=== PATIENT | male | born 1955 | race Caucasian/White ===

== ENCOUNTER 2017-10-11 09:48 | Day surgery (SDC) | payer MEDICARE, BC, OTHER ==
[2017-10-06 12:32] VITALS: BMI 24.9
[~2017-10-11 09:48] MED LIST: LACTATED RINGERS 1,000 ML IV SCH
[2017-10-11 11:15] VITALS: TEMP 98.4
[2017-10-11] MEDS ORDERED: PROPOFOL 10 MG/ML 20 ML VIAL IV ONE (11:20)
[2017-10-11] MEDS ORDERED: LIDOCAINE 1% 20 ML VIAL (10MG/ML) FOR IV START INTRADERMA ONE (11:21)
--- NOTE | 2017-10-11 11:59 | P.PCN ---
Date of Procedure: 10/11/17 Procedure(s) Performed: Procedure: PEG tube removal. Preoperative diagnosis: History of oropharyngeal dysphagia requiring PEG tube feedings. Postoperative diagnosis: Successful removal of the PEG tube intact under sedation. Preparation and sedation: Was provided by anesthesia. Brief clinical history: The patient is a 62-year-old male with history of oropharyngeal dysphagia back in March 2017 that required placement of PEG tube for feeding. The patient was evaluated in the office last month and he reported significant improvement with ability to meet his nutritional needs by spontaneous oral intake consistently. He wanted the PEG tube removed under sedation. Procedure: With the patient in the supine position and after informed consent and adequate sedation, I was able to remove the feeding tube with gentle traction and it came out intact. The site did not appear infected and it did not show any evidence of bleeding. No upper endoscopy was required. The patient tolerated the procedure well and did not have any immediate complications. Plan: The patient would not be given anything by mouth for 2-4 hours then we suggest his next meal to be liquid then he can advance his diet as tolerated. Further plans based on his course.
[2017-10-11 12:09] VITALS: RESP 20
[2017-10-11 12:13] VITALS: BP 142/82; PULSE 63
== END 2017-10-11 12:48 | disposition home or self-care (01) ==
LOC: ORWHC2ENDO 09:48
DX: Z43.1 Encounter for attention to gastrostomy (principal); E11.9 Type 2 diabetes mellitus without complications; I48.91 Unspecified atrial fibrillation; I10 Essential (primary) hypertension; R56.9 Unspecified convulsions; F03.90 Unspecified dementia, unspecified severity, without behavioral disturbance, psychotic disturbance, mood disturbance, and anxiety; Z87.19 Personal history of other diseases of the digestive system; Z79.01 Long term (current) use of anticoagulants; Z79.890 Hormone replacement therapy; Z79.891 Long term (current) use of opiate analgesic; Z79.899 Other long term (current) drug therapy; Z87.891 Personal history of nicotine dependence
CPT/HCPCS: J2704; G0463; 43215; 43246; 99212

== ENCOUNTER 2018-11-16 10:12 | Inpatient (IN) | payer MEDICARE, BC, OTHER ==
[2018-11-07 14:41] VITALS: BMI 29.5
--- NOTE | 2018-11-16 09:19 | P.GSHP ---
History of Present Illness H&P Date: 11/16/18 CHIEF COMPLAINT: Recurrent incisional hernia. HISTORY OF PRESENT ILLNESS: [place] is a 63-year-old male who comes in with recurrent incisional hernia from over 5+ years ago. He is wheelchair bound. He lives at [facility]. He has completed further work up and evaluation by specialist. He now presents for further evaluation and management. He does have his tape keller operator at bedside. PAST MEDICAL HISTORY: Please see list. PAST SURGICAL HISTORY: Please see list. MEDICATIONS: Please see list. ALLERGIES: Please see list. SOCIAL HISTORY: No illicit drug use FAMILY HISTORY: No reports of Crohn disease or ulcerative colitis. REVIEW OF ORGAN SYSTEMS: CONSTITUTIONAL: No fevers or chills. No recent weight loss. EYES: Denies any trouble with vision. No glasses. HEENT: No difficulties with hearing. No nosebleeds. No difficulty swallowing. RESPIRATORY: Denies pneumonia. Denies any troubles with breathing or dyspnea on exertion. CARDIOVASCULAR: Has chest pain, palpitations, or recent heart attacks. GASTROINTESTINAL: Denies fatty food intolerance. Denies change in bowel habits and gas bloat. GENITOURINARY: Denies any blood in urine or increased urinary frequency. NEUROLOGICAL: Has numbness or tingling along the distal extremities. Has seizure disorders or headaches. MUSCULOSKELETAL: Has back pain, stiffness or joint arthritis. SKIN: No current skin cancer. No rash. PSYCHIATRIC: Has depression. No suicidal thoughts. Has anxiety. ENDOCRINE: Has thyroid disorders. Denies any blood sugar glucose intolerance. HEME/LYMPHATIC: Denies any lumps and bumps around the neck. No recent deep venous thrombosis. On chronic anticoagulant. ALLERGY/IMMUNOLOGY: No immunoglobulin therapy. No immune deficiencies. BREAST: Denies current breast lumps, pain or nipple discharge. PHYSICAL EXAM: Patient is a 63-year-old male. VITALS:Reviewed Musculoskeletal: Atrophy noted along the right lower leg, wheelchair bound. CONSTITUTIONAL: Well developed and in no acute distress. Vitals reviewed. EYES: Conjuctivae without sclera icterus. Pupils are equally round and reactive to light. Extraocular movements grossly intact. HEAD, EARS, NOSE, THROAT: Moist buccal mucosa. Head is atraumatic, normocephalic. Hears conversational speech. No nasal drainage. Good dentition. NECK: Supple. No JV distention. No thyroidomegaly. RESPIRATORY: Non-labored respirations and equal bilateral excursions. No gross wheezes. CARDIOVASCULAR: Regular rate and rhythm. Extremities without moderate edema. Palpable 2+ radial pulses. LYMPH: No neck lymphadenopathy. No axillary lymphadenopathy. SKIN: Warm and well perfused with good skin turgor. NEUROLOGIC: Cranial nerves I through XII grossly intact. Sensation upper and extremities intact. No focal or lateralizing signs. PSYCH: Appropriate affect. Alert and oriented to person, place and time. Displays appropriate insight. Abdomen: Large 10 x 8 cm epigastric ventral hernia, recurrent with hernia belt noted. STUDIES: CT of the abdomen/pelvis was independently reviewed in detail and demonstrated incarcerated recurrent incisional hernia of the epigastrium. ASSESSMENT: 1. Recurrent incisional ventral hernia. 2. Wheelchair bound. PLAN: 1. Recommend open ventral hernia repair with robotic assisted given the complexity of his hernia. 2. Placement of mesh was also described. 3. He is wheelchair bound with comorbidities and debility with inpatient hospitalization was also described. 4. All clearances, including cardiac, were also reviewed in detail. 5. He is extremely high risk for complications due to debility and multiple prior repairs. Past Medical History Past Medical History: Atrial Fibrillation, Dementia, Diabetes Mellitus, Hypertension, Liver Disease, Memory Impairment, Seizure Disorder, Skin Disorder Additional Past Medical History / Comment(s): ABDOMINAL HERNIA WITH OBS,MATHEUS- NURSE AT [facility] STATED "THINKS THERE IS A WOUND TO COCCYX-UNSURE STAGE" DEMENTIA, HEPATITIS C-TREATED, UNKNOWN LAST SEIZURE., DIET CONTROLLED DIABETES, CONSTIPATION,ENCEPHALOPATHY,GASTRIC ULCER,NONAMBULATORY,TRANSFERS WITH [employer] PERSON ASST. LEGAL GUARDIAN BROTHER CNIDY MADERA # [phone]. HEALTH HX OBTAINED FROM MEDICAL RECORD AT [facility] AND NURSE MATHEUS AT [facility] [place]. OLD HX OF BRAIN DAMAGE R/T DRUG ABUSE History of Any Multi-Drug Resistant Organisms: ESBL, MRSA Date of last positivie culture/infection: 04/02/17 MDRO Source:: sputum esbl, LT FOOT WOUND Past Surgical History: Adenoidectomy, Bowel Resection, Hernia Repair, Tonsillectomy Additional Past Surgical History / Comment(s): COMPLETE [facility],, wound debridement to L FOOT, PEG INSERTION-Removal, EGD Past Anesthesia/Blood Transfusion Reactions: No Reported Reaction Additional Past Anesthesia/Blood Transfusion Reaction / Comment(s): family hx, pts COMPLETE surgical hx unknown [facility] Smoking Status: Former smoker - Past Family History Father Family Medical History: Dementia Additional Family Medical History / Comment(s): Father of alzheimer dementia at the age of 87yrs. Mother Family Medical History: Cancer Additional Family Medical History / Comment(s): Mother had breast cancer and had a cancerous tumor removed from outside her bladder. She at the age of 87yrs from lung cancer. Medications and Allergies Home Medications Medication Instructions Recorded Confirmed Type Levothyroxine Sodium [Synthroid] 50 mcg PO QAM 07/08/14 11/13/18 History Artificial Tears-Hypromellose 1 drops RIGHT EYE BID 02/15/17 11/13/18 History [Artificial Tear Drops] Cetirizine HCl [Zyrtec] 10 mg PO DAILY 02/15/17 11/13/18 History levETIRAcetam [Keppra] 1,000 mg PO BID 02/15/17 11/13/18 History Metoprolol Tartrate [Lopressor] 50 mg PO BID tab 04/13/17 11/13/18 Rx Diazepam 2 mg PO QID 10/06/17 11/13/18 History Escitalopram [Lexapro] 10 mg PO QAM 10/06/17 11/13/18 History Melatonin 3 mg PO HS 10/06/17 11/13/18 History Rivaroxaban [Xarelto] 20 mg PO HS 10/06/17 11/13/18 History Acetaminophen Tab [Tylenol Tab] 650 mg PO Q6H PRN 11/13/18 11/13/18 History Acetaminophen [Tylenol] 650 mg PO Q12H 11/13/18 11/13/18 History Cyanocobalamin [Vitamin B-12] 500 mcg PO DAILY 11/13/18 11/13/18 History Eucerin Cream 1 applic TOPICAL BID 11/13/18 11/13/18 History Ferrous Sulfate [Feosol] 325 mg PO HS 11/13/18 11/13/18 History Omeprazole [PriLOSEC] 20 mg PO AC-BRKFST 11/13/18 11/13/18 History Polyethylene Glycol 3350 [Miralax] 17 gm PO DAILY 11/13/18 11/13/18 History Sennosides [Senokot] 2 tab PO HS 11/13/18 11/13/18 History amLODIPine [Norvasc] 10 mg PO QAM 11/13/18 11/13/18 History Allergies Allergy/AdvReac Type Severity Reaction Status Date / Time No Known Allergies Allergy Verified 11/07/18 13:53
[~2018-11-16 10:12] MED LIST changes: +DEXAMETHASONE SOD PHOSPHATE 10 MG/ML 1 ML VIAL IV ONE; +HEPARIN SODIUM,PORCINE 5,000 UNIT/ML 1 ML VIAL SQ ONE; -LACTATED RINGERS 1,000 ML IV SCH; +LIDOCAINE 1% 20 ML VIAL (10MG/ML) FOR IV START INTRADERMA PRN; +MIDAZOLAM 2 MG/2 ML VIAL IV PRN; +ONDANSETRON 4 MG/2 ML VIAL IVP PRN; +SCOPOLAMINE 1.5MG/72HR PATCH TRANSDERM ONE; +ceFAZolin IN SWFI 2 GM/20 ML SYRINGE IVP ONE
--- NOTE | 2018-11-16 11:12 | P.HPADDEND ---
H&P Addendum H&P Addendum Date: 11/16/18 Open ventral hernia repair approach described for size of hernia and risks of adhesions.
[2018-11-16 11:18] LABS: Glucose,Whole Blood 82 mg/dL (75-99)
[2018-11-16] MEDS: LACTATED RINGERS 1,000 ML IV SCH (11:36)
[2018-11-16] MEDS ORDERED: AMINO ACID 5%-D25W 1,000 ML BAG IV ONE (11:45)
[2018-11-16] MEDS ORDERED: ROCURONIUM BROMIDE 10 MG/ML 10 ML VIAL IV ONE (11:45)
[2018-11-16] MEDS ORDERED: LIDOCAINE 1% INJ 10MG/ML (20 ML MDV) ONE (11:45)
[2018-11-16] MEDS ORDERED: NEOSTIGMINE 1 MG/ML 10 ML VIAL ONE (11:45)
[2018-11-16] MEDS ORDERED: HYDROmorphone (PF) 1 MG/ML ONE (11:45)
[2018-11-16] MEDS ORDERED: fentaNYL (PF) 50 MCG/ML 2 ML AMP ONE (11:45)
[2018-11-16] MEDS ORDERED: GLYCOPYRROLATE 0.2 MG/ML 2 ML VIAL ONE (11:45)
[2018-11-16] MEDS ORDERED: PROPOFOL 10 MG/ML 20 ML VIAL IV ONE (11:45)
[2018-11-16 11:48] LABS: Anisocytosis Slight; Basophils # (A) 0.1 k/uL (0-0.2); Basophils % (A) 1 %; Eosinophils # (A) 0.3 k/uL (0-0.7); Eosinophils % (A) 3 %; HCT 45.8 % (39.0-53.0); HGB 14.9 gm/dL (13.0-17.5); Lymphocytes # (A) 1.7 k/uL (1.0-4.8); Lymphocytes % (A) 19 %; MCH 27.8 pg (25.0-35.0); MCHC 32.7 g/dL (31.0-37.0); MCV 85.1 fL (80.0-100.0); Mean Platelet Volume 8.3; Monocytes # (A) 0.6 k/uL (0-1.0); Monocytes % (A) 7 %; Neutrophils # (A) 5.8 k/uL (1.3-7.7); Neutrophils % (A) 67 %; Platelet Count 164 k/uL (150-450); RBC 5.37 m/uL (4.30-5.90); RDW 17.2 % (11.5-15.5); WBC 8.6 k/uL (3.8-10.6)
[2018-11-16 11:51] LABS: ALT 24 U/L (21-72); AST 28 U/L (17-59); African American GFR (CKD) >90 (>60 ml/min/1.73 sqM); Albumin 4.4 g/dL (3.5-5.0); Alkaline Phosphatase 74 U/L (38-126); Anion Gap 11 mmol/L; Blood Urea Nitrogen 14 mg/dL (9-20); Calcium 9.2 mg/dL (8.4-10.2); Carbon Dioxide 27 mmol/L (22-30); Chloride 103 mmol/L (98-107); Glucose 84 mg/dL (74-99); Sodium 141 mmol/L (137-145); Total Bilirubin 0.7 mg/dL (0.2-1.3); Total Protein 7.7 g/dL (6.3-8.2)
[2018-11-16 11:54] LABS: Potassium 4.6 mmol/L (3.5-5.1)
[2018-11-16] MEDS ORDERED: LIDOCAINE 1%-EPI 1:100,000 30 ML VIAL SQ ONE (13:23)
[2018-11-16] MEDS ORDERED: NALOXONE 0.4 MG/ML 1 ML VIAL IV PRN (14:58)
[2018-11-16] MEDS ORDERED: ACETAMINOPHEN TAB 325 MG TAB PO PRN (15:01)
--- NOTE | 2018-11-16 15:07 | P.OP ---
Date of Procedure: 11/16/18 Description of Procedure: SURGEON: REE MONGE MD PREOPERATIVE DIAGNOSES: 1. Incarcerated incisional hernia, recurrent with small bowel obstruction 2. Past history of abdominal sepsis and small bowel resection 3. Seizure disorder 4. Anxiety disorder 5. Hypertensive heart disease 6. Chronic anticoagulant therapy 7. Gastroesophageal reflux disease 8. Depressive disorder 9. Hypothyroidism 10. Iron deficiency anemia 11. Seasonal ALLERGIES 12. Wheelchair dependent 13. Atrial fibrillation 14. Dementia 15. Past history of MRSA POSTOPERATIVE DIAGNOSES: 1. Incarcerated incisional hernia, recurrent with small bowel obstruction, 11 x 10 cm incisional hernia, epigastrium 2. Past history of abdominal sepsis and small bowel resection 3. Seizure disorder 4. Anxiety disorder 5. Hypertensive heart disease 6. Chronic anticoagulant therapy 7. Gastroesophageal reflux disease 8. Depressive disorder 9. Hypothyroidism 10. Iron deficiency anemia 11. Seasonal ALLERGIES 12. Wheelchair dependent 13. Atrial fibrillation 14. Dementia 15. Past history of MRSA Procedure(s) Performed: 1. Robotic assisted da Raven Xi laparoscopic lysis of adhesions over 30 minutes was performed 2. Robotic assisted da Raven Xi laparoscopic reduction and repair of incarcerated incisional hernia using 15 x [address] mesh Anesthesia: TYSON local Estimated Blood Loss (ml): 5 Pathology: none sent Condition: stable Disposition: same day COMPLICATIONS: None. INDICATIONS: The patient is a 63-year-old male who presents with incarcerated incisional ventral hernia. Surgical intervention with laparoscopic versus robotic and open techniques were reviewed. Placement of mesh was also reviewed. Benefits and risks were thoroughly described including small bowel injury, infection, bleeding, recurrence and placement of mesh. Informed consent was obtained. DESCRIPTION OF PROCEDURE: The patient was brought into the operating room and laid in supine position. After general induction, the hernia was reduced. With his generalized debility including high risk of wound/skin infection, robotic approach was proposed. I went to his legal guardian, his brother, who gave consent for robotic approach with possible open technique. His abdomen had been prepped and draped in standard sterile fashion. Ioban draping was also placed. Prior to incision, a timeout protocol was confirmed with surgical team regarding the patient's name including procedures to be performed. The robot was primed prior to the procedure. A field block using local anesthetic was placed along hernia site including the proposed port sites. Initial incision was made with an #11 blade along the left upper quadrant. A 0 degree 5 mm laparoscopic trocar entry was performed and insufflated. Three 8 mm ports were placed along the right lateral abdominal wall. The 5-mm port was exchanged for an 12 mm robotic port at the left upper quadrant. Placements of the ports were 15 cm from the target anatomy and 10 cm apart. The da Raven Xi robot was previously primed, prepped and draped then docked along the right side of the patient. I then sat at the robot Da Raven Xi console where working arms of the robot including Bovie cautery connected to robotic scissors, vessel sealer, needle [employer] hazmat tanker driver, and graspers placed by the dental assistant teacher. Diagnostic laparoscopy demonstrated moderate adhesions of the abdominal wall including small bowel. The greater omentum including small bowel were freed from the abdominal wall using vessel sealer including scissors. Lysis of adhesions over 30 minutes was performed. Fascial defects of Tristanian cheese were identified where the small bowel was reduced between the skin and the muscle including subcutaneous tissue. The largest defect of 4 cm and 5 cm were identified of the mid upper abdomen. The fascial defects were oversewn using #1 Stratafix with fascial imbrication x 3. A 12 mm port was placed along the left upper quadrant for placement of the mesh and for sutures. Next, ventralight ST mesh 15 x 20 cm was placed with the rough side towards the abdominal wall. Multiple 2-0 VLOC 12-inch sutures were used to fixate the mesh. A final endoscopic imaging was obtained. All instruments and pneumoperitoneum were evacuated from the abdominal cavity. The da Raven Xi robot was undocked from the patient. I re-scrubbed into the case for closure of incisions. The fascia of the 12-mm port was probed and less than 8-mm in size. The incisions were reapproximated using 4-0 Monocryl in an interrupted subcuticular fashion. Liquid glue was applied to the skin after cleansing the skin with normal saline and dilute hydrogen peroxide. An abdominal binder was placed. At the end of the procedure, needle, sponge, and instrument count had been verified correct by surgical services asst. The patient was taken to the postanesthesia care unit in stable condition. FINDINGS: 1. Large recurrent incisional hernia 11 x 13 cm epigastrium with small bowel trapped between skin and fascia in the subcutaneous tissue 2. Defects oversewn to close Tristanian cheese defect 3. Moderate muscle separation from prior muscle separation 4. No small bowel pathology 5. Console time 78 minutes
[2018-11-16] MEDS: HYDROmorphone 0.5 MG/0.5 ML SYRINGE IVP PRN ×3 (15:30→16:00)
[2018-11-16] MEDS ORDERED: LACTATED RINGERS 1,000 ML IV ONE (16:14)
[2018-11-16] MEDS: KETOROLAC 30 MG/ML 1 ML VIAL IVP SCH ×2 (17:53→17:56)
[2018-11-16] MEDS: DIAZEPAM 2 MG TAB PO SCH (17:57)
[2018-11-16] MEDS: MELATONIN 3 MG TABLET PO SCH (20:26)
[2018-11-16] MEDS: HEPARIN SODIUM,PORCINE 5,000 UNIT/ML 1 ML VIAL SQ SCH (20:26)
[2018-11-16] MEDS: levETIRAcetam 500 MG TAB PO SCH (20:26)
[2018-11-16] MEDS: SENNOSIDES 8.6 MG TAB PO SCH (20:27)
[2018-11-16] MEDS: METOPROLOL TARTRATE 50 MG TAB PO SCH (20:27)
[2018-11-16] MEDS: ARTIFICIAL TEARS-HYPROMELLOSE DROPS 15 ML BTL RIGHT EYE SCH (20:28)
[2018-11-16 20:52] LABS: Glucose,Whole Blood 120 mg/dL (75-99)
[2018-11-17] MEDS: KETOROLAC 30 MG/ML 1 ML VIAL IVP SCH ×5 (01:07→23:34)
[2018-11-17] MEDS: DIAZEPAM 2 MG TAB PO SCH ×5 (02:21→21:38)
[2018-11-17 06:55] LABS: Glucose,Whole Blood 115 mg/dL (75-99)
[2018-11-17] MEDS ORDERED: ceFAZolin IN SWFI 2 GM/20 ML SYRINGE IVP STA (08:02)
[2018-11-17] MEDS: LACTATED RINGERS 1,000 ML IV SCH (08:43)
[2018-11-17] MEDS: levETIRAcetam 500 MG TAB PO SCH ×2 (08:56→22:13)
[2018-11-17] MEDS: ESCITALOPRAM 10 MG TAB PO SCH (08:56)
[2018-11-17] MEDS: PANTOPRAZOLE 40 MG TABLET PO SCH (08:56)
[2018-11-17] MEDS: TAMSULOSIN 0.4 MG CAP.ER.24H PO SCH (08:56)
[2018-11-17] MEDS: POLYETHYLENE GLYCOL 3350 17 GM POWD.PACK PO SCH (08:56)
[2018-11-17] MEDS: METOPROLOL TARTRATE 50 MG TAB PO SCH ×2 (08:56→21:38)
[2018-11-17] MEDS: LORATADINE 10 MG TAB PO SCH (08:56)
[2018-11-17] MEDS: LEVOTHYROXINE 50 MCG TAB PO SCH (08:57)
[2018-11-17] MEDS: HEPARIN SODIUM,PORCINE 5,000 UNIT/ML 1 ML VIAL SQ SCH ×2 (08:57→21:38)
[2018-11-17] MEDS: amLODIPine 10 MG TAB PO SCH (10:10)
[2018-11-17 11:26] LABS: Glucose,Whole Blood 127 mg/dL (75-99)
[2018-11-17] MEDS: ALBUTEROL NEBULIZED 1.25 MG/3 ML INHALATION SCH ×3 (11:51→20:19)
[2018-11-17] MEDS: ARTIFICIAL TEARS-HYPROMELLOSE DROPS 15 ML BTL RIGHT EYE SCH ×2 (12:30→21:37)
--- NOTE | 2018-11-17 13:45 | P.PN ---
Subjective Progress Note Date: 11/17/18 CHIEF COMPLAINT: recurrent incisional hernia HISTORY OF PRESENT ILLNESS: 63-year-old male who is status post robotic-assisted laparoscopic reduction and repair of incarcerated incisional hernia and lysis of adhesions. POD #1. Patient examined at the bedside this morning. His pain is tolerable. Tolerating diet. He denies nausea or vomiting. Patient is requiring 5L O2 to maintain oxygen saturations greater than 92%. Patient does not have incentive spirometry at the bedside, although it has been ordered PHYSICAL EXAM: VITAL SIGNS: Currently stable. GENERAL: Well-developed in no acute distress. HEENT: No sclera icterus. Extraocular movements grossly intact. Moist buccal mucosa. Head is atraumatic, normocephalic. Hears conversational speech. No nasal drainage. NECK: Supple without lymphadenopathy. CHEST: Non-labored respirations and equal bilateral excursions. CARDIOVASCULAR: Regular rate with regular rhythm. Palpable 2+ radial pulses. ABDOMEN: Soft. Nondistended. Incisions clean dry intact without drainage or signs of infection. MUSCULOSKELETAL: No clubbing, cyanosis or edema. Patient is wheelchair bound. NEUROLOGIC: No focal or lateralizing signs. Cranial nerves II through XII grossly intact. PSYCH: Appropriate affect. Alert and oriented to person, place and time. SKIN: Well perfused. Good skin turgor. ASSESSMENT: 1. Status post robotic-assisted laparoscopic reduction and repair of incarcerated incisional hernia and lysis of adhesions PLAN: 1. Continue regular diet 2. Discontinue urinary catheter. Check post void residual. Flomax daily. Patient to continue Flomax for 5 days post discharge 3. Pain control 4. Incentive spirometry 10 times an hour 5. Wean oxygen as tolerated 6. Patient likely to be discharged back to [facility] tomorrow. A nticipate patient will not require oxygen at the time of discharge. Prescriptions for flomax and [place] placed in patients paper chart. Rudi, school social worker, aware of plan to discharge tomorrow back to [facility] 7. Patient may resume Xarelto on Tuesday per Dr. Short Nurse practitioner note has been reviewed by physician. Signing provider agrees with the documented findings, assessment, and plan of care. Objective - Vital Signs Vital signs: Vital Signs Temp 97.8 F 11/17/18 07:05 Pulse 83 11/17/18 07:05 Resp 16 11/17/18 08:36 BP 128/77 11/17/18 07:05 Pulse Ox 94 L 11/17/18 08:57 Intake & Output 11/16/18 11/17/18 11/17/18 18:59 06:59 18:59 Intake Total 905 480 Output Total 160 1500 800 Balance 745 -1500 -320 Intake: IV 905 Oral 480 Output: Urine 150 1500 800 Estimated Blood Loss 10 Other: Voiding Method Indwelling Catheter Indwelling Catheter Indwelling Catheter - Labs CBC & Chem 7: 11/16/18 11:24 11/16/18 11:24 Labs: Abnormal Lab Results - Last 24 Hours (Table) 11/16/18 11/17/18 11/17/18 Range/Units 20:51 06:53 11:25 POC Glucose (mg/dL) 120 H 115 H 127 H (75-99) mg/dL Assessment and Plan (1) Incisional hernia, incarcerated Current Visit: Yes Status: Acute Code(s): K43.0 - INCISIONAL HERNIA WITH OBSTRUCTION, WITHOUT GANGRENE SNOMED Code(s): 046283291
[2018-11-17 16:59] LABS: Glucose,Whole Blood 118 mg/dL (75-99)
[2018-11-17 20:15] LABS: Glucose,Whole Blood 111 mg/dL (75-99)
[2018-11-17] MEDS: MELATONIN 3 MG TABLET PO SCH (21:38)
[2018-11-17] MEDS: SENNOSIDES 8.6 MG TAB PO SCH (21:38)
[2018-11-18] MEDS: LEVOTHYROXINE 50 MCG TAB PO SCH (06:02)
[2018-11-18] MEDS: HYDROcodone/APAP 5-325MG 1 EACH TAB PO PRN ×3 (06:02→13:15)
[2018-11-18] MEDS: LACTATED RINGERS 1,000 ML IV SCH (06:05)
[2018-11-18 07:10] LABS: Anisocytosis Slight; Basophils % (A) 0 %; Eosinophils # (A) 0.2 k/uL (0-0.7); Eosinophils % (A) 2 %; HCT 41.9 % (39.0-53.0); HGB 13.4 gm/dL (13.0-17.5); Lymphocytes # (A) 1.9 k/uL (1.0-4.8); Lymphocytes % (A) 15 %; MCH 27.6 pg (25.0-35.0); MCV 86.4 fL (80.0-100.0); Monocytes # (A) 0.6 k/uL (0-1.0); Monocytes % (A) 5 %; Neutrophils # (A) 9.9 k/uL (1.3-7.7); Neutrophils % (A) 77 %; Platelet Count 153 k/uL (150-450); RBC 4.85 m/uL (4.30-5.90); RDW 16.9 % (11.5-15.5); WBC 12.8 k/uL (3.8-10.6)
[2018-11-18 07:10] LABS: Glucose,Whole Blood 95 mg/dL (75-99)
[2018-11-18 07:36] LABS: African American GFR (CKD) >90 (>60 ml/min/1.73 sqM); Anion Gap 6 mmol/L; Blood Urea Nitrogen 16 mg/dL (9-20); Calcium 8.9 mg/dL (8.4-10.2); Carbon Dioxide 31 mmol/L (22-30); Chloride 104 mmol/L (98-107); Glucose 92 mg/dL (74-99); Potassium 3.9 mmol/L (3.5-5.1); Sodium 141 mmol/L (137-145)
[2018-11-18 08:04] VITALS: RESP 17
[2018-11-18] MEDS: ALBUTEROL NEBULIZED 1.25 MG/3 ML INHALATION SCH ×2 (08:05→11:32)
--- NOTE | 2018-11-18 10:26 | P.PN ---
Subjective Progress Note Date: 11/18/18 Principal diagnosis: Incisional hernia Patient doing well today. States his pain is minimal. He is anxious to return to the ECF. Tolerating diet. Objective - Vital Signs Vital signs: Vital Signs Temp 97.5 F L 11/18/18 07:27 Pulse 67 11/18/18 07:27 Resp 17 11/18/18 07:27 BP 124/78 11/18/18 07:27 Pulse Ox 93 L 11/18/18 07:27 Intake & Output 11/17/18 11/18/18 11/18/18 18:59 06:59 18:59 Intake Total 1160 Output Total 1224 600 200 Balance -64 -600 -200 Intake: IV 360 Lactated Ringers 1,000 ml 360 @ 20 mls/hr IV .Q24H [facility] Rx#:[id number] Oral 800 Output: Urine 1124 600 200 Post Void Residual 100 Other: Voiding Method Indwelling Catheter Urinal - Exam Abdomen: Soft, nondistended, incisions clean and dry, minimal tenderness - Labs CBC & Chem 7: 11/18/18 06:32 11/18/18 06:32 Labs: Abnormal Lab Results - Last 24 Hours (Table) 11/17/18 11/17/18 11/17/18 Range/Units 11:25 16:58 20:13 WBC (3.8-10.6) k/uL RDW (11.5-15.5) % Neutrophils # (1.3-7.7) k/uL Carbon Dioxide (22-30) mmol/L POC Glucose (mg/dL) 127 H 118 H 111 H (75-99) mg/dL 11/18/18 11/18/18 Range/Units 06:32 06:32 WBC 12.8 H (3.8-10.6) k/uL RDW 16.9 H (11.5-15.5) % Neutrophils # 9.9 H (1.3-7.7) k/uL Carbon Dioxide 31 H (22-30) mmol/L POC Glucose (mg/dL) (75-99) mg/dL Assessment and Plan (1) Incisional hernia, incarcerated Narrative/Plan: Patient doing well today. White blood cell count slightly elevated. No erythema at incision sites. We'll plan discharge to ECF. Continue diet. Current Visit: Yes Status: Acute Code(s): K43.0 - INCISIONAL HERNIA WITH OBSTRUCTION, WITHOUT GANGRENE SNOMED Code(s): 189090682
[2018-11-18] MEDS: POLYETHYLENE GLYCOL 3350 17 GM POWD.PACK PO SCH (10:47)
[2018-11-18] MEDS: ARTIFICIAL TEARS-HYPROMELLOSE DROPS 15 ML BTL RIGHT EYE SCH (10:47)
[2018-11-18] MEDS: DIAZEPAM 2 MG TAB PO SCH ×2 (10:47→13:15)
[2018-11-18] MEDS: levETIRAcetam 500 MG TAB PO SCH (10:47)
[2018-11-18] MEDS: METOPROLOL TARTRATE 50 MG TAB PO SCH (10:48)
[2018-11-18] MEDS: amLODIPine 10 MG TAB PO SCH (10:48)
[2018-11-18] MEDS: TAMSULOSIN 0.4 MG CAP.ER.24H PO SCH (10:48)
[2018-11-18] MEDS: PANTOPRAZOLE 40 MG TABLET PO SCH (10:48)
[2018-11-18] MEDS: HEPARIN SODIUM,PORCINE 5,000 UNIT/ML 1 ML VIAL SQ SCH (10:48)
[2018-11-18] MEDS: LORATADINE 10 MG TAB PO SCH (10:48)
[2018-11-18] MEDS: ESCITALOPRAM 10 MG TAB PO SCH (10:48)
--- NOTE | 2018-11-18 12:42 | P.DS ---
Providers Date of admission: 11/17/18 14:02 Expected date of discharge: 11/18/18 Attending physician: Ida Short Primary care physician: Stated None - Discharge Diagnosis(es) (1) Incisional hernia, incarcerated Patient medical for repair of incisional hernia. This is performed laparoscopically 2 days ago. Patient is wheelchair dependent. He was kept for observation. He is doing well at this time. He is well controlled. Will discharge with plans for outpatient follow-up in 1 week. Resume previous Medications Current Visit: Yes Status: Acute Plan - Discharge Summary Discharge Rx Participant: No New Discharge Prescriptions: New Tamsulosin [Flomax] 0.4 mg PO DAILY #5 cap Hydrocodone/Acetaminophen [Arpin 5-325] 1 tab PO Q4HR PRN 3 Days #18 tab PRN Reason: Pain No Action Levothyroxine Sodium [Synthroid] 50 mcg PO QAM Cetirizine HCl [Zyrtec] 10 mg PO DAILY Artificial Tears-Hypromellose [Artificial Tear Drops] 1 drop RIGHT EYE BID levETIRAcetam [Keppra] 1,000 mg PO BID Metoprolol Tartrate [Lopressor] 50 mg PO BID tab Rivaroxaban [Xarelto] 20 mg PO HS Escitalopram [Lexapro] 10 mg PO QAM Diazepam 2 mg PO QID Melatonin 3 mg PO HS Acetaminophen [Tylenol] 650 mg PO Q12H Acetaminophen Tab [Tylenol Tab] 650 mg PO Q6H PRN PRN Reason: Pain Or Fever > 100.5 Eucerin Cream 1 applic TOPICAL BID Cyanocobalamin [Vitamin B-12] 500 mcg PO DAILY Omeprazole [PriLOSEC] 20 mg PO AC-BRKFST Ferrous Sulfate [Feosol] 325 mg PO HS Polyethylene Glycol 3350 [Miralax] 17 gm PO DAILY Sennosides [Senokot] 17.2 mg PO HS amLODIPine [Norvasc] 10 mg PO QAM Discharge Medication List Levothyroxine Sodium [Synthroid] 50 mcg PO QAM 07/08/14 [History] Artificial Tears-Hypromellose [Artificial Tear Drops] 1 drop RIGHT EYE BID 02/15/17 [History] Cetirizine HCl [Zyrtec] 10 mg PO DAILY 02/15/17 [History] levETIRAcetam [Keppra] 1,000 mg PO BID 02/15/17 [History] Metoprolol Tartrate [Lopressor] 50 mg PO BID tab 04/13/17 [Rx] Diazepam 2 mg PO QID 10/06/17 [History] Escitalopram [Lexapro] 10 mg PO QAM 10/06/17 [History] Melatonin 3 mg PO HS 10/06/17 [History] Rivaroxaban [Xarelto] 20 mg PO HS 10/06/17 [History] Acetaminophen Tab [Tylenol Tab] 650 mg PO Q6H PRN 11/13/18 [History] Acetaminophen [Tylenol] 650 mg PO Q12H 11/13/18 [History] Cyanocobalamin [Vitamin B-12] 500 mcg PO DAILY 11/13/18 [History] Eucerin Cream 1 applic TOPICAL BID 11/13/18 [History] Ferrous Sulfate [Feosol] 325 mg PO HS 11/13/18 [History] Omeprazole [PriLOSEC] 20 mg PO AC-BRKFST 11/13/18 [History] Polyethylene Glycol 3350 [Miralax] 17 gm PO DAILY 11/13/18 [History] Sennosides [Senokot] 17.2 mg PO HS 11/13/18 [History] amLODIPine [Norvasc] 10 mg PO QAM 11/13/18 [History] Hydrocodone/Acetaminophen [Arpin 5-325] 1 tab PO Q4HR PRN 3 Days #18 tab 11/17/18 [Rx] Tamsulosin [Flomax] 0.4 mg PO DAILY #5 cap 11/17/18 [Rx] Follow up Appointment(s)/Referral(s): Ida Short MD [STAFF PHYSICIAN] - 11/23/18 9:45 am Activity/Diet/Wound Care/Special Instructions: Resume Xarelto on Tuesday No lifting over 10 pounds You may shower. No soaking or tub baths Very light activity until you are reevaluated at your follow up appointment with your surgeon Diet as tolerated Discharge Disposition: TRANSFER TO SNF/ECF
[2018-11-18 13:44] VITALS: BP 124/74; PULSE 71; TEMP 97.9
== END 2018-11-18 13:28 | DRG 337 ==
LOC: OR 10:12 → EEVIPCON 11:30 → EDSTATUS 11:30 → 4SSUR 14:54 → OR 11-17 14:02
PROVIDERS: ADMIT Surgery Plastic and Reconstructive Surgery; ATTEND Surgery Plastic and Reconstructive Surgery
PROC: 8E0W4CZ Robotic Assisted Procedure of Trunk Region, Percutaneous Endoscopic Approach (ICD-10-PCS; principal; 2018-11-16 11:30)
PROC: 0DNU4ZZ Release Omentum, Percutaneous Endoscopic Approach (ICD-10-PCS; principal; 2018-11-16 11:30)
PROC: 0DN84ZZ Release Small Intestine, Percutaneous Endoscopic Approach (ICD-10-PCS; principal; 2018-11-16 11:30)
PROC: 0WUF4JZ Supplement Abdominal Wall with Synthetic Substitute, Percutaneous Endoscopic Approach (ICD-10-PCS; principal; 2018-11-16 11:30)
DX: K43.0 Incisional hernia with obstruction, without gangrene (principal); F32.9 Major depressive disorder, single episode, unspecified; M62.561 Muscle wasting and atrophy, not elsewhere classified, right lower leg; E03.9 Hypothyroidism, unspecified; E11.9 Type 2 diabetes mellitus without complications; F41.9 Anxiety disorder, unspecified; F03.90 Unspecified dementia, unspecified severity, without behavioral disturbance, psychotic disturbance, mood disturbance, and anxiety; G40.909 Epilepsy, unspecified, not intractable, without status epilepticus; J30.2 Other seasonal allergic rhinitis; K21.9 Gastro-esophageal reflux disease without esophagitis; I11.9 Hypertensive heart disease without heart failure; I48.91 Unspecified atrial fibrillation; Z99.3 Dependence on wheelchair; Z79.01 Long term (current) use of anticoagulants; Z79.890 Hormone replacement therapy; Z79.899 Other long term (current) drug therapy; Z80.1 Family history of malignant neoplasm of trachea, bronchus and lung; Z80.3 Family history of malignant neoplasm of breast; Z82.0 Family history of epilepsy and other diseases of the nervous system; Z86.14 Personal history of Methicillin resistant Staphylococcus aureus infection; Z87.891 Personal history of nicotine dependence; Z87.11 Personal history of peptic ulcer disease; Z90.89 Acquired absence of other organs
CPT/HCPCS: 80048; 80053; 85025

== ENCOUNTER → 2018-12-15 | Outpatient (CLI) | payer MEDICARE, BC, OTHER ==
--- NOTE | 2018-12-15 16:25 | CT ---
EXAMINATION TYPE: CT abdomen wo con DATE OF EXAM: 12/15/2018 HISTORY: hernia per patient. Diverticulitis per order. CT DLP: 768.2 mGycm. Automated Exposure Control for Dose Reduction was Utilized. TECHNIQUE: CT scan of the abdomen is performed without oral or IV contrast. COMPARISON: CT abdomen and pelvis July 28, 2018. FINDINGS: Within the limitations of a non-contrast study, the following observations are made. LUNG BASES: Coronary artery calcification proximal LAD is seen on current study. There is right-sided gynecomastia partially imaged axial image 4. There is elevated right hemidiaphragm with right basila r consolidation and/or atelectasis axial image 1. LIVER/GB: Multiple gallstones in gallbladder redemonstrated. PANCREAS: No significant abnormality is seen. SPLEEN: Stable small splenule near pancreatic tail axial image 28. ADRENALS: No significant abnormality is seen. KIDNEYS: Cortical thinning both kidneys redemonstrated. Subcentimeter exophytic low dense rounded les ion medially left kidney axial image 40 currently stable from prior presumed benign. BOWEL: Suspect some surgical sutures along lesser curvature of stomach coronal image 18. Ingested pil l in the antrum axial image 35. No suspicious small or large bowel dilatation. Ingested pill within t he cecum coronal image 49. Sutures in slightly prominent fluid-filled central bowel loop axial image 52 are redemonstrated. LYMPH NODES: No greater than 1cm abdominal lymph nodes are appreciated. OSSEOUS STRUCTURES: Transitional-type vertebra at lumbosacral junction. Disc space narrowing and vacu um disc phenomenon in the lower lumbar levels. OTHER: Vascular calcification distal abdominal aorta extends into iliac branch vessels. There is interval hernia repair surgery with successful repair of left periumbilical hernia. Focal ev entration remains present without new hernia defect. There is however new thin-walled fluid collectio n left of midline at site of eventration measuring 4.7 x 2.1 cm axial image 57 IMPRESSION: Interval successful repair of ventral wall hernia. New anterior abdominal wall small thin -walled fluid collection is nonspecific favoring postsurgical seroma.
== END | disposition home or self-care (01) ==
LOC: RADCTMAIN 15:46
PROVIDERS: ATTEND Surgery Plastic and Reconstructive Surgery
DX: K57.31 Diverticulosis of large intestine without perforation or abscess with bleeding (principal)
CPT/HCPCS: 74150

== ENCOUNTER → 2019-02-07 | Outpatient (CLI) | payer MEDICARE, BC, OTHER ==
--- NOTE | 2019-02-07 15:28 | CT ---
EXAMINATION TYPE: CT ankle RT wo con DATE OF EXAM: 02/07/2019 COMPARISON: NONE HISTORY: Rigid right ankle varus deformity and pain for order. TECHNIQUE: CT scan right ankle was performed. FINDINGS: Marked demineralization is present. Moderate to severe diffuse subcutaneous edema along dis cathie leg and ankle is present. Varus positioning is noted. There is severe tibiotalar narrowing with subchondral cystic change. Some bony formation talar dome coronal image 25 is noted corresponding to sagittal image 27. There is med ial or varus angulation of the talus relative to the distal tibia. There is narrowing of the radiouln ar joint with medial and inferior spurring from the distal fibula. Mild to moderate medial spurring f rom the medial malleolus. Mild spurring from the posterior malleolus. Calcaneal cuboid joint shows mild narrowing inferiorly. Subtalar joint is maintained. Moderate narrow ing talonavicular joint is present. Lisfranc joints are maintained. IMPRESSION: As above.
== END | disposition home or self-care (01) ==
LOC: RADCTMAIN 14:26
PROVIDERS: ATTEND Orthopaedic Surgery
DX: M77.51 Other enthesopathy of right foot and ankle (principal); M25.871 Other specified joint disorders, right ankle and foot

== ENCOUNTER 2019-05-03 09:21 | Day surgery (SDC) | payer MEDICARE, BC, OTHER ==
[2019-04-26 09:52] VITALS: BMI 29.5
[~2019-05-03 09:21] MED LIST changes: -HEPARIN SODIUM,PORCINE 5,000 UNIT/ML 1 ML VIAL SQ ONE; +HYDROmorphone 0.5 MG/0.5 ML SYRINGE IVP PRN; +LACTATED RINGERS 1,000 ML IV SCH; -LIDOCAINE 1% 20 ML VIAL (10MG/ML) FOR IV START INTRADERMA PRN; +ONDANSETRON 4 MG/2 ML VIAL IVP ONE; -ONDANSETRON 4 MG/2 ML VIAL IVP PRN; -ceFAZolin IN SWFI 2 GM/20 ML SYRINGE IVP ONE
[2019-05-03 10:24] VITALS: BP 135/78; PULSE 75; RESP 16; TEMP 97.9
[2019-05-03] MEDS ORDERED: LIDOCAINE 1% 20 ML VIAL (10MG/ML) FOR IV START INTRADERMA ONE (10:32)
[2019-05-03 10:34] LABS: Glucose,Whole Blood 84 mg/dL (75-99)
== END 2019-05-03 11:36 ==
LOC: ORWHC2ENDO 09:21
PROVIDERS: ATTEND Orthopaedic Surgery
DX: Z01.818 Encounter for other preprocedural examination (principal); M21.171 Varus deformity, not elsewhere classified, right ankle; I10 Essential (primary) hypertension; F32.9 Major depressive disorder, single episode, unspecified; F41.9 Anxiety disorder, unspecified; K73.8 Other chronic hepatitis, not elsewhere classified; K21.9 Gastro-esophageal reflux disease without esophagitis; E03.9 Hypothyroidism, unspecified; I25.10 Atherosclerotic heart disease of native coronary artery without angina pectoris; G40.909 Epilepsy, unspecified, not intractable, without status epilepticus; F51.01 Primary insomnia; G81.91 Hemiplegia, unspecified affecting right dominant side; J30.2 Other seasonal allergic rhinitis; I26.99 Other pulmonary embolism without acute cor pulmonale; I27.20 Pulmonary hypertension, unspecified; I48.21 Permanent atrial fibrillation; E11.9 Type 2 diabetes mellitus without complications; Z79.01 Long term (current) use of anticoagulants; Z79.890 Hormone replacement therapy; Z86.61 Personal history of infections of the central nervous system; Z79.899 Other long term (current) drug therapy; Z87.19 Personal history of other diseases of the digestive system; Z87.891 Personal history of nicotine dependence; Z86.14 Personal history of Methicillin resistant Staphylococcus aureus infection; Z90.49 Acquired absence of other specified parts of digestive tract; Z80.1 Family history of malignant neoplasm of trachea, bronchus and lung; Z80.3 Family history of malignant neoplasm of breast; Z81.8 Family history of other mental and behavioral disorders; Z79.891 Long term (current) use of opiate analgesic

== ENCOUNTER 2019-05-03 11:47 | Observation (INO) | payer MEDICARE, BC, OTHER ==
--- NOTE | 2019-05-03 12:21 | ED ---
General Adult HPI - General Chief complaint: Extremity Problem,Nontraumatic Stated complaint: poss blood clot Time Seen by Provider: 05/03/19 11:51 Source: patient Mode of arrival: wheelchair Limitations: no limitations - History of Present Illness Initial comments: Dictation was produced using [email or web address] dictation software. please excuse any grammatical, word or spelling errors. 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 History of Present Illness: 64-year-old male he has chronic deformity of his right lower extremity. He presents today with his son. Patient is currently resident at [facility]. Patient was supposed to have surgery on his right lower extremity today at the [facility]. Patient has chronic deformity to his right lower extremity. He was supposed to have an Achilles tendon surgery today. Patient was in preop when he was evaluated by orthopedic surgery. He is noted to have redness around his right lower extremity. Surgery was canceled due to concerns of infection or blood clot. Patient is on Xarelto. He is given a prescription for Bactrim from orthopedic surgeon. Patient has any pain to his lower extremity. Denies any chest pain or shortness of breath. There is some redness that has been slowly progressive over the last 48 hours as right lower extremity. Patient is a poor historian. Most of history is obtained from son. The ROS documented in this emergency department record has been reviewed and confirmed by me. Those systems with pertinent positive or negative responses have been documented in the HPI. All other systems are other negative and/or noncontributory. PHYSICAL EXAM: General Impression: Alert and oriented x3, not in acute distress HEENT: Normocephalic atraumatic, extra-ocular movements intact, pupils equal and reactive to light bilaterally, mucous membranes moist. Cardiovascular: Heart regular rate and rhythm, S1&S2 audible, no murmurs, rubs or gallops Chest: Lungs clear to auscultation bilaterally, no rhonchi, no wheeze, no rales Abdomen: Bowel sounds present, abdomen soft, non-tender, non-distended, no organomegaly Musculoskeletal: Pulses present and equal in all extremities, no peripheral edema, clubbing right lower extremity at the ankle. Motor: no focal deficits noted Neurological: CN II-XII grossly intact, no focal motor or sensory deficits noted Skin: Erythema that is circumferential to the right lower extremity, positive warmth Psych: Normal affect and mood ED course: 64 yo male with chronic right ankle deformity presents with redness and is referred to from orthopedic surgeon for right lower extremity redness. Signs upon arrival are within acceptable limits. Patient is on Xarelto. Clinical presentation is not consistent with DVT. There is concerns however of cellulitis of the right lower extremity.Laboratory evaluation obtained. CBC, coag panel, metabolic panel is unremarkable. X-ray suggestive of edema. Clinical presentation consistent with cellulitis. Patient started on vancomycin. Discussed patient case Dr. akers. Patient will be admitted. - Related Data Home Medications Medication Instructions Recorded Confirmed Levothyroxine Sodium [Synthroid] 50 mcg PO QAM 07/08/14 05/03/19 Artificial Tears-Hypromellose 1 drop RIGHT EYE BID 02/15/17 05/03/19 [Artificial Tear Drops] Cetirizine HCl [Zyrtec] 10 mg PO DAILY 02/15/17 05/03/19 levETIRAcetam [Keppra] 1,000 mg PO BID 02/15/17 05/03/19 Diazepam 2 mg PO QID 10/06/17 05/03/19 Melatonin 3 mg PO HS 10/06/17 05/03/19 Rivaroxaban [Xarelto] 20 mg PO HS 10/06/17 05/03/19 Acetaminophen Tab [Tylenol Tab] 650 mg PO Q6H PRN 11/13/18 05/03/19 Eucerin Cream 1 applic TOPICAL BID 11/13/18 05/03/19 Polyethylene Glycol 3350 [Miralax] 17 gm PO DAILY 11/13/18 05/03/19 amLODIPine [Norvasc] 10 mg PO QAM 11/13/18 05/03/19 Escitalopram [Lexapro] 5 mg PO DAILY 04/25/19 05/03/19 Hydrocodone/Acetaminophen [[place] 1 tab PO DAILY PRN 04/25/19 05/03/19 5-325] Lansoprazole [Prevacid] 15 mg PO DAILY 04/25/19 05/03/19 Previous Rx's Medication Instructions Recorded Metoprolol Tartrate [Lopressor] 50 mg PO BID tab 04/13/17 Tamsulosin [Flomax] 0.4 mg PO DAILY #5 cap 11/17/18 Docusate [Colace] 100 mg PO BID #20 capsule 11/23/18 Sulfamethox-Tmp 800-160Mg [Bactrim 1 tab PO Q12HR #28 tab 05/03/19 DS 800-160 mg] Allergies Allergy/AdvReac Type Severity Reaction Status Date / Time No Known Allergies Allergy Verified 05/03/19 11:53 Review of Systems ROS Statement: Those systems with pertinent positive or pertinent negative responses have been documented in the HPI. ROS Other: All systems not noted in ROS Statement are negative. Past Medical History Past Medical History: Atrial Fibrillation, Coronary Artery Disease (CAD), Dementia, Diabetes Mellitus, Hypertension, Liver Disease, Memory Impairment, Pulmonary Embolus (PE), Seizure Disorder, Skin Disorder Additional Past Medical History / Comment(s): NURSE AT [facility] STATES OPEN SORE ON COCCYX., PT SCRATCHES AND HAS SCRATCHES ON LEGS., DEMENTIA, HEPATITIS C- TREATED, UNKNOWN LAST SEIZURE., DIET CONTROLLED DIABETES, DIVERTICULOSIS, RIGHT HEMIPARESIS,CONSTIPATION,ENCEPHALOPATHY,GASTRIC ULCER, HX OF SBO WITH PARTIAL BOWEL RESECTION.,NONAMBULATORY,TRANSFERS WITH [employer]. LEGAL GUARDIAN BROTHER CINDY MADERA # [phone]. , HX OF BRAIN DAMAGE R/T DRUG ABUSE. History of Any Multi-Drug Resistant Organisms: ESBL, MRSA Date of last positivie culture/infection: 04/02/17 MDRO Source:: sputum esbl, LT FOOT WOUND Past Surgical History: Adenoidectomy, Bowel Resection, Hernia Repair, Tonsil lectomy Additional Past Surgical History / Comment(s): wound debridement to L FOOT, LYSIS OF ADHESIONS.PEG INSERTION & Removal, EGD, INCISIONAL HERNIA 11/2018 AT [facility]. SBO WITH PARTIAL BOWEL RESECTION (2017) Past Anesthesia/Blood Transfusion Reactions: No Reported Reaction Additional Past Anesthesia/Blood Transfusion Reaction / Comment(s): BROTHER- CINDY MADERA STATES NO PROBLEMS WITH ANESTHESIA AND NO FAMILY HX OF PROBLEMS WITH ANESTHESIA. Past Psychological History: Anxiety, Depression Smoking Status: Former smoker Past Alcohol Use History: None Reported Past Drug Use History: None Reported - Past Family History Father Family Medical History: Dementia Additional Family Medical History / Comment(s): Father of alzheimer dementia at the age of 87yrs. Mother Family Medical History: Cancer Additional Family Medical History / Comment(s): Mother had breast cancer and had a cancerous tumor removed from outside her bladder. She at the age of 87yrs from lung cancer. General Exam Limitations: no limitations Course Vital Signs 05/03/19 11:53 Temperature 98.4 F Pulse Rate 66 Respiratory 18 Rate Blood Pressure 129/74 O2 Sat by Pulse 94 L Oximetry Medical Decision Making - Lab Data Result diagrams: 05/03/19 12:45 05/03/19 12:45 Lab Results 05/03/19 05/03/19 05/03/19 Range/Units 12:45 12:45 12:45 WBC 9.1 (3.8-10.6) k/uL RBC 4.82 (4.30-5.90) m/uL Hgb 13.0 (13.0-17.5) gm/dL Hct 39.2 (39.0-53.0) % MCV 81.3 (80.0-100.0) fL MCH 27.0 (25.0-35.0) pg MCHC 33.2 (31.0-37.0) g/dL RDW 13.9 (11.5-15.5) % Plt Count 167 (150-450) k/uL Neutrophils % 66 % Lymphocytes % 17 % Monocytes % 9 % Eosinophils % 4 % Basophils % 1 % Neutrophils # 6.0 (1.3-7.7) k/uL Lymphocytes # 1.6 (1.0-4.8) k/uL Monocytes # 0.8 (0-1.0) k/uL Eosinophils # 0.4 (0-0.7) k/uL Basophils # 0.0 (0-0.2) k/uL Hypochromasia Slight PT (9.0-12.0) sec INR (<1.2) APTT (22.0-30.0) sec Sodium 140 (137-145) mmol/L Potassium 4.1 (3.5-5.1) mmol/L Chloride 107 (98-107) mmol/L Carbon Dioxide 25 (22-30) mmol/L Anion Gap 8 mmol/L BUN 17 (9-20) mg/dL Creatinine 0.71 (0.66-1.25) mg/dL Est GFR (CKD-EPI)AfAm >90 (>60 ml/min/1.73 sqM) Est GFR (CKD-EPI)NonAf >90 (>60 ml/min/1.73 sqM) Glucose 82 (74-99) mg/dL Plasma Lactic Acid Adrian 0.9 (0.7-2.0) mmol/L Calcium 8.9 (8.4-10.2) mg/dL Magnesium 2.0 (1.6-2.3) mg/dL 05/03/19 Range/Units 12:45 WBC (3.8-10.6) k/uL RBC (4.30-5.90) m/uL Hgb (13.0-17.5) gm/dL Hct (39.0-53.0) % MCV (80.0-100.0) fL MCH (25.0-35.0) pg MCHC (31.0-37.0) g/dL RDW (11.5-15.5) % Plt Count (150-450) k/uL Neutrophils % % Lymphocytes % % Monocytes % % Eosinophils % % Basophils % % Neutrophils # (1.3-7.7) k/uL Lymphocytes # (1.0-4.8) k/uL Monocytes # (0-1.0) k/uL Eosinophils # (0-0.7) k/uL Basophils # (0-0.2) k/uL Hypochromasia PT 10.4 (9.0-12.0) sec INR 1.0 (<1.2) APTT 24.3 (22.0-30.0) sec Sodium (137-145) mmol/L Potassium (3.5-5.1) mmol/L Chloride (98-107) mmol/L Carbon Dioxide (22-30) mmol/L Anion Gap mmol/L BUN (9-20) mg/dL Creatinine (0.66-1.25) mg/dL Est GFR (CKD-EPI)AfAm (>60 ml/min/1.73 sqM) Est GFR (CKD-EPI)NonAf (>60 ml/min/1.73 sqM) Glucose (74-99) mg/dL Plasma Lactic Acid Adrian (0.7-2.0) mmol/L Calcium (8.4-10.2) mg/dL Magnesium (1.6-2.3) mg/dL Disposition Clinical Impression: Cellulitis Disposition: ADMITTED IP TO THIS [facility] Condition: Fair Referrals: Cusmano,Eddie, MD [Primary Care Provider] - 1-2 days Decision Time: 13:38
[2019-05-03] MEDS ORDERED: VANCOMYCIN IV PER PHARMACY 1 EACH MISC MISCELLANE PRN (12:27)
[2019-05-03] MEDS ORDERED: VANCOMYCIN 2,000 MG in SODIUM CHLORIDE 0.9% 500 ML 500 ML IVPB STA (12:28)
--- NOTE | 2019-05-03 12:42 | XR ---
Right leg HISTORY: Erythema and swelling Frontal and lateral views of the right leg submitted on a total 4 images. Bone mineralization is reduced. Marked arthropathy and ankylosis noted within the foot. No evident fr acture or dislocation. Soft tissue swelling is noted incidentally. IMPRESSION: Edema, correlate for cellulitis. Osteopenia.
[2019-05-03 13:06] LABS: Basophils % (A) 1 %; Eosinophils # (A) 0.4 k/uL (0-0.7); Eosinophils % (A) 4 %; HCT 39.2 % (39.0-53.0); Hypochromasia Slight; Lymphocytes # (A) 1.6 k/uL (1.0-4.8); Lymphocytes % (A) 17 %; MCHC 33.2 g/dL (31.0-37.0); MCV 81.3 fL (80.0-100.0); Mean Platelet Volume 8.9; Monocytes # (A) 0.8 k/uL (0-1.0); Monocytes % (A) 9 %; Neutrophils % (A) 66 %; Platelet Count 167 k/uL (150-450); RBC 4.82 m/uL (4.30-5.90); RDW 13.9 % (11.5-15.5); WBC 9.1 k/uL (3.8-10.6)
[2019-05-03 13:14] LABS: Partial Thromboplastin Time 24.3 sec (22.0-30.0); Prothrombin Time 10.4 sec (9.0-12.0)
[2019-05-03 13:15] LABS: African American GFR (CKD) >90 (>60 ml/min/1.73 sqM); Anion Gap 8 mmol/L; Blood Urea Nitrogen 17 mg/dL (9-20); Calcium 8.9 mg/dL (8.4-10.2); Carbon Dioxide 25 mmol/L (22-30); Chloride 107 mmol/L (98-107); Glucose 82 mg/dL (74-99); Non-African American GFR(CKD) >90 (>60 ml/min/1.73 sqM); Potassium 4.1 mmol/L (3.5-5.1); Sodium 140 mmol/L (137-145)
[2019-05-03] MEDS ORDERED: NALOXONE 0.4 MG/ML 1 ML VIAL IV PRN (13:53)
[2019-05-03] MEDS ORDERED: MELATONIN 3 MG TABLET PO PRN (16:34)
[2019-05-03] MEDS ORDERED: POLYETHYLENE GLYCOL 3350 17 GM POWD.PACK PO PRN (16:34)
[2019-05-03] MEDS ORDERED: ACETAMINOPHEN TAB 325 MG TAB PO PRN (16:34)
[2019-05-03] MEDS ORDERED: HYDROcodone/APAP 5-325MG 1 EACH TAB PO PRN (16:34)
[2019-05-03] MEDS: DIAZEPAM 2 MG TAB PO SCH ×2 (17:22→22:08)
--- NOTE | 2019-05-03 19:20 | P.HPIM ---
History of Present Illness 64-year-old the male with chronic deformity of the right lower exudate came in with increased swelling and redness in the right lower exudate found to have cellulitis patient has been scratching that area lately. Patient is admitted facilities patient was started on vancomycin. Patient failed Bactrim as an outpatient and infectious disease will be consulted Review of Systems REVIEW OF SYSTEMS: CONSTITUTIONAL: No fever, no malaise, no fatigue. HEENT: No recent visual problems or hearing problems. Denied any sore throat. CARDIOVASCULAR: No chest pain, orthopnea, PND, no palpitations, no syncope. PULMONARY: No shortness of breath, no cough, no hemoptysis. GASTROINTESTINAL: No diarrhea, no nausea, no vomiting, no abdominal pain. NEUROLOGICAL: No headaches, no weakness, no numbness. HEMATOLOGICAL: Denies any bleeding or petechiae. GENITOURINARY: Denies any burning micturition, frequency, or urgency. MUSCULOSKELETAL/RHEUMATOLOGICAL: As mentioned in HPI ENDOCRINE: Denies any polyuria or polydipsia. The rest of the 14-point review of systems is negative. Past Medical History Past Medical History: Atrial Fibrillation, Coronary Artery Disease (CAD), Dementia, Diabetes Mellitus, Hypertension, Liver Disease, Memory Impairment, Pulmonary Embolus (PE), Seizure Disorder, Skin Disorder Additional Past Medical History / Comment(s): NURSE AT [facility] STATES OPEN SORE ON COCCYX., PT SCRATCHES AND HAS SCRATCHES ON LEGS., DEMENTIA, HEPATITIS C- TREATED, UNKNOWN LAST SEIZURE., DIET CONTROLLED DIABETES, DIVERTICULOSIS, RIGHT HEMIPARESIS,CONSTIPATION,ENCEPHALOPATHY,GASTRIC ULCER, HX OF SBO WITH PARTIAL BOWEL RESECTION.,NONAMBULATORY,TRANSFERS WITH [employer]. LEGAL GUARDIAN BROTHER CINDY MADERA # [phone]. , HX OF BRAIN DAMAGE R/T DRUG ABUSE. History of Any Multi-Drug Resistant Organisms: ESBL, MRSA Date of last positivie culture/infection: 04/02/17 MDRO Source:: sputum esbl, LT FOOT WOUND Past Surgical History: Adenoidectomy, Bowel Resection, Hernia Repair, Tonsillectomy Additional Past Surgical History / Comment(s): wound debridement to L FOOT, LYSIS OF ADHESIONS.PEG INSERTION & Removal, EGD, INCISIONAL HERNIA 11/2018 AT [facility]. SBO WITH PARTIAL BOWEL RESECTION (2016) Past Anesthesia/Blood Transfusion Reactions: No Reported Reaction Additional Past Anesthesia/Blood Transfusion Reaction / Comment(s): BROTHER- MARIA A MADERA STATES NO PROBLEMS WITH ANESTHESIA AND NO FAMILY HX OF PROBLEMS WITH ANESTHESIA. Past Psychological History: Anxiety, Depression Additional Psychological History / Comment(s): Pt resides at [facility] since 2006. Smoking Status: Former smoker Past Alcohol Use History: None Reported Additional Past Alcohol Use History / Comment(s): Pt is a recovering alcoholic. Past Drug Use History: None Reported Additional Drug Use History / Comment(s): HX OF BRAIN DAMAGE R/T DRUG ABUSE - Past Family History Father Family Medical History: Dementia Additional Family Medical History / Comment(s): Father of alzheimer dementia at the age of 87yrs. Mother Family Medical History: Cancer Additional Family Medical History / Comment(s): Mother had breast cancer and had a cancerous tumor removed from outside her bladder. She at the age of 87yrs from lung cancer. Medications and Allergies Home Medications Medication Instructions Recorded Confirmed Type Levothyroxine Sodium [Synthroid] 50 mcg PO QAM 07/08/14 05/03/19 History Artificial Tears-Hypromellose 1 drop RIGHT EYE BID 02/15/17 05/03/19 History [Artificial Tear Drops] Cetirizine HCl [Zyrtec] 10 mg PO DAILY@0700 02/15/17 05/03/19 History levETIRAcetam [Keppra] 1,000 mg PO BID 02/15/17 05/03/19 History Metoprolol Tartrate [Lopressor] 50 mg PO BID tab 04/13/17 05/03/19 Rx Diazepam 2 mg PO QID 10/06/17 05/03/19 History Melatonin 3 mg PO HS 10/06/17 05/03/19 History Rivaroxaban [Xarelto] 20 mg PO DIRECTED 10/06/17 05/03/19 History Acetaminophen Tab [Tylenol Tab] 650 mg PO Q6H PRN 11/13/18 05/03/19 History Polyethylene Glycol 3350 [Miralax] 17 gm PO DAILY 11/13/18 05/03/19 History amLODIPine [Norvasc] 10 mg PO QAM 11/13/18 05/03/19 History Tamsulosin [Flomax] 0.4 mg PO DAILY #5 cap 11/17/18 05/03/19 Rx Docusate [Colace] 100 mg PO BID #20 capsule 11/23/18 05/03/19 Rx Escitalopram [Lexapro] 5 mg PO DAILY@0700 04/25/19 05/03/19 History Hydrocodone/Acetaminophen [[place] 1 tab PO DAILY PRN 04/25/19 05/03/19 History 5-325] Lansoprazole [Prevacid] 15 mg PO DAILY@0700 04/25/19 05/03/19 History Eucerin Lotion 1 applic TOPICAL BID@0700,1600 05/03/19 05/03/19 History Sulfamethox-Tmp 800-160Mg [Bactrim 1 tab PO Q12HR #28 tab 05/03/19 05/03/19 Rx DS 800-160 mg] Allergies Allergy/AdvReac Type Severity Reaction Status Date / Time No Known Allergies Allergy Verified 05/03/19 13:59 Physical Exam Vitals: Vital Signs Temp Pulse Pulse Resp BP BP Pulse Ox 05/03/19 15:00 98.5 F 72 17 145/73 93 L 05/03/19 14:54 80 18 137/89 99 05/03/19 14:21 78 18 127/87 99 05/03/19 11:53 98.4 F 66 18 129/74 94 L Intake and Output 05/03/19 05/03/19 05/03/19 06:59 14:59 22:59 Output Total 500 Balance -500 Output: Urine 500 Other: Weight 101.605 kg 101.605 kg PHYSICAL EXAMINATION: GENERAL: The patient is alert and oriented x3, not in any acute distress. Well developed, well nourished. HEENT: Pupils are round and equally reacting to light. EOMI. No scleral icterus. No conjunctival pallor. Normocephalic, atraumatic. No pharyngeal erythema. No thyromegaly. CARDIOVASCULAR: S1 and S2 present. No murmurs, rubs, or gallops. PULMONARY: Chest is clear to auscultation, no wheezing or crackles. ABDOMEN: Soft, nontender, nondistended, normoactive bowel sounds. No palpable organomegaly. MUSCULOSKELETAL: No joint swelling or deformity. EXTREMITIES: No cyanosis, clubbing, or pedal edema. Patient has medially rotated right ankle and right foot with extensive cellulitis extending up to almost close to a few centimeters close to me with local is of temperature and swelling NEUROLOGICAL: Gross neurological examination did not reveal any focal deficits. SKIN: No rashes. Results CBC & Chem 7: 05/03/19 12:45 05/03/19 12:45 Assessment and Plan Plan: -Cellulitis of the right lower extremity: Patient was started on mitomycin considering that he failed outpatient. If that will consult infectious disease. -Atrial fibrillation presently rate controlled patient is on anti-coagulation which was resumed -Coronary artery disease -type 2 diabetes mellitus -Hypertension -History of PE in the past next and-seizure disorder for above-mentioned chronic medical problems patient will be resumed on appropriate home medications.
[2019-05-03] MEDS ORDERED: SULFAMETHOX-TMP 800-160MG 1 EACH TAB PO SCH (21:00)
[2019-05-03] MEDS: METOPROLOL TARTRATE 50 MG TAB PO SCH (22:08)
[2019-05-03] MEDS: DOCUSATE 100 MG CAP PO SCH (22:08)
[2019-05-03] MEDS: levETIRAcetam 500 MG TAB PO SCH (22:32)
[2019-05-03] MEDS: ARTIFICIAL TEARS-HYPROMELLOSE DROPS 15 ML BTL RIGHT EYE SCH (22:32)
[2019-05-04] MEDS: VANCOMYCIN 1,750 MG in SODIUM CHLORIDE 0.9% 500 ML 500 ML IVPB SCH ×2 (00:06→07:07)
[2019-05-04] MEDS ORDERED: LEVOTHYROXINE 50 MCG TAB PO SCH (06:00)
[2019-05-04] MEDS ORDERED: LORATADINE 10 MG TAB PO SCH (07:00)
[2019-05-04] MEDS ORDERED: ESCITALOPRAM 5 MG TAB PO SCH (07:00)
[2019-05-04] MEDS: levETIRAcetam 500 MG TAB PO SCH (07:07)
[2019-05-04] MEDS: DOCUSATE 100 MG CAP PO SCH (07:07)
[2019-05-04] MEDS: METOPROLOL TARTRATE 50 MG TAB PO SCH (07:07)
[2019-05-04] MEDS: ARTIFICIAL TEARS-HYPROMELLOSE DROPS 15 ML BTL RIGHT EYE SCH (07:08)
[2019-05-04] MEDS ORDERED: PANTOPRAZOLE 40 MG TABLET PO SCH (07:30)
[2019-05-04 08:19] LABS: African American GFR (CKD) >90 (>60 ml/min/1.73 sqM); Non-African American GFR(CKD) >90 (>60 ml/min/1.73 sqM)
[2019-05-04] MEDS ORDERED: TAMSULOSIN 0.4 MG CAP.ER.24H PO SCH (09:00)
[2019-05-04] MEDS ORDERED: amLODIPine 10 MG TAB PO SCH (09:00)
--- NOTE | 2019-05-04 13:16 | US ---
EXAMINATION TYPE: US venous doppler duplex LE RT DATE OF EXAM: 05/04/2019 1:12 PM COMPARISON: US bilateral lower extremity venous 2017 CLINICAL HISTORY: rule out blood clot. Right leg pain and swelling, exam done portable. SIDE PERFORMED: Right TECHNIQUE: The lower extremity deep venous system is examined utilizing real time linear array sonog sandra with graded compression, doppler sonography and color-flow sonography. VESSELS IMAGED: External Iliac Vein (EIV) Common Femoral Vein Deep Femoral Vein Greater Saphenous Vein * Femoral Vein Popliteal Vein Small Saphenous Vein * Proximal Calf Veins (* superficial vessels) Right Leg: Appears negative for DVT Grayscale, color doppler, spectral doppler imaging performed of the deep veins of the right lower ext remity. There is normal flow, compressibility, vascular waveforms. IMPRESSION: No ultrasound evidence for acute DVT in the right lower extremity. Mild subcutaneous gonsalo ma distally is redemonstrated.
--- NOTE | 2019-05-04 13:17 | P.DS ---
Providers Date of admission: 05/03/19 13:53 Attending physician: Deandre Hernandez MD Consults: 05/03/19 18:13 Consult Physician Routine Consulting Provider: Sonu Chawla Consult Reason/Comments: cellulitis of left leg Do you want consulting provider notified?: Yes Primary care physician: Eddie [facility] Course: Patient is admitted facilities of the right lower extremity significant improved with vancomycin. Infectious disease will evaluate the patient and patient is cleared for discharge patient will be discharged today on oral antibiotics. Patient was on Bactrim at the facility. PHYSICAL EXAMINATION: GENERAL: The patient is alert and oriented x3, not in any acute distress. Well developed, well nourished. HEENT: Pupils are round and equally reacting to light. EOMI. No scleral icterus. No conjunctival pallor. Normocephalic, atraumatic. No pharyngeal erythema. No thyromegaly. CARDIOVASCULAR: S1 and S2 present. No murmurs, rubs, or gallops. PULMONARY: Chest is clear to auscultation, no wheezing or crackles. ABDOMEN: Soft, nontender, nondistended, normoactive bowel sounds. No palpable organomegaly. MUSCULOSKELETAL: No joint swelling or deformity. EXTREMITIES: No cyanosis, clubbing, or pedal edema. Patient has medially rotated right ankle and right foot with extensive cellulitis extending up to almost close to a few centimeters close to me with local is of temperature and swelling NEUROLOGICAL: Gross neurological examination did not reveal any focal deficits. SKIN: No rashes. Assessment and Plan Plan: -Cellulitis of the right lower extremity: Patient has significant improvement with IV vancomycin will be discharged on oral antibiotics as per infectious disease if cleared by ID patient will be discharged today -Atrial fibrillation presently rate controlled patient is on anti-coagulation which was resumed -Coronary artery disease -type 2 diabetes mellitus -Hypertension -History of PE in the past next and-seizure disorder for above-mentioned chronic medical problems patient will be resumed on appropriate home medications. Patient Condition at Discharge: Fair Plan - Discharge Summary Discharge Rx Participant: Yes New Discharge Prescriptions: Continue Levothyroxine Sodium [Synthroid] 50 mcg PO QAM Cetirizine HCl [Zyrtec] 10 mg PO DAILY@0700 Artificial Tears-Hypromellose [Artificial Tear Drops] 1 drop RIGHT EYE BID levETIRAcetam [Keppra] 1,000 mg PO BID Metoprolol Tartrate [Lopressor] 50 mg PO BID tab Rivaroxaban [Xarelto] 20 mg PO DIRECTED Diazepam 2 mg PO QID Melatonin 3 mg PO HS Acetaminophen Tab [Tylenol] 650 mg PO Q6H PRN PRN Reason: Pain Or Fever > 100.5 Polyethylene Glycol 3350 [Miralax] 17 gm PO DAILY amLODIPine [Norvasc] 10 mg PO QAM Tamsulosin [Flomax] 0.4 mg PO DAILY #5 cap Docusate [Colace] 100 mg PO BID #20 capsule Escitalopram [Lexapro] 5 mg PO DAILY@0700 Hydrocodone/Acetaminophen [[place] 5-325] 1 tab PO DAILY PRN PRN Reason: Pain Lansoprazole [Prevacid] 15 mg PO DAILY@0700 Eucerin Lotion 1 applic TOPICAL BID@0700,1600 Discontinued Sulfamethox-Tmp 800-160Mg [Bactrim DS 800-160 mg] 1 tab PO Q12HR #28 tab Discharge Medication List Levothyroxine Sodium [Synthroid] 50 mcg PO QAM 07/08/14 [History] Artificial Tears-Hypromellose [Artificial Tear Drops] 1 drop RIGHT EYE BID 02/15/17 [History] Cetirizine HCl [Zyrtec] 10 mg PO DAILY@0700 02/15/17 [History] levETIRAcetam [Keppra] 1,000 mg PO BID 02/15/17 [History] Metoprolol Tartrate [Lopressor] 50 mg PO BID tab 04/13/17 [Rx] Diazepam 2 mg PO QID 10/06/17 [History] Melatonin 3 mg PO HS 10/06/17 [History] Rivaroxaban [Xarelto] 20 mg PO DIRECTED 10/06/17 [History] Acetaminophen Tab [Tylenol] 650 mg PO Q6H PRN 11/13/18 [History] Polyethylene Glycol 3350 [Miralax] 17 gm PO DAILY 11/13/18 [History] amLODIPine [Norvasc] 10 mg PO QAM 11/13/18 [History] Tamsulosin [Flomax] 0.4 mg PO DAILY #5 cap 11/17/18 [Rx] Docusate [Colace] 100 mg PO BID #20 capsule 11/23/18 [Rx] Escitalopram [Lexapro] 5 mg PO DAILY@0700 04/25/19 [History] Hydrocodone/Acetaminophen [[place] 5-325] 1 tab PO DAILY PRN 04/25/19 [History] Lansoprazole [Prevacid] 15 mg PO DAILY@0700 04/25/19 [History] Eucerin Lotion 1 applic TOPICAL BID@0700,1600 05/03/19 [History] Follow up Appointment(s)/Referral(s): Eddie Golden MD [Primary Care Provider] - 1-2 days
--- NOTE | 2019-05-04 13:45 | CONS ---
CONSULTATION DATE OF SERVICE: 05/04/2019 REASON FOR CONSULTATION: Right lower extremity cellulitis. HISTORY OF PRESENT ILLNESS: The patient is a 64-year-old male who presented to the hospital for an elective surgery on his right lower extremity and this patient did have chronic deformity to the right ankle area. In the OR, the patient was noticed to have swelling of his right leg and some redness with concern for possible clot or cellulitis. The patient was sent to the ER at [facility] for a Doppler ultrasound which was not done. The patient did have a x-rays of the tibia and fibula which shows edema correlated for cellulitis and osteopenia. The patient was started on vancomycin admitted to the hospital. Infectious Disease was consulted for further recommendations regarding antibiotic. The patient currently denies having any pain to his right lower extremity area. He did have swelling which has improved and the redness has improved as well though the son who provided most of the history did mention the patient having any fever or chills at home and no fever has been recorded here in the hospital. The patient's white count is normal as well and his creatinine is normal. Blood cultures obtained which are currently pending. REVIEW OF SYSTEMS: Positive points have been mentioned in HPI. Rest of systems are negative. PAST MEDICAL HISTORY: Atrial fibrillation, coronary artery disease, dementia, diabetes mellitus, hypertension, pulmonary embolism, seizure disorder. PAST SURGICAL HISTORY: Adenoidectomy, bowel resection, hernia repair, tonsillectomy. SOCIAL HISTORY: Remote history of smoking. No drinking or drug use. detention resident. FAMILY HISTORY: Father with history of dementia. Mother with history of breast cancer. ALLERGIES: No known drug allergies. MEDICATIONS: Medications include the patient is currently on Tylenol, [place], Norvasc, Colace, Lexapro, Keppra, Synthroid, Claritin, melatonin, Lopressor, vancomycin pharmacy to dose, Protonix, MiraLAX, Xarelto, Flomax and vancomycin. PHYSICAL EXAMINATION: On examination, blood pressure is 139/80 with a pulse of 65, temperature 98.2. He is 95% on 4 L nasal cannula. General description is a middle-aged male lying in bed in no distress. No tachypnea or accessory muscle of respiration use. HEENT: Examination shows no pallor or scleral icterus. Oral mucous membrane is dry. No pharyngeal erythema or thrush. NECK: Trachea central. No thyromegaly. LUNGS: Unlabored breathing, clear to auscultation anteriorly. No wheeze or crackle. HEART: S1, S2. Regular rate and rhythm. No added sounds. ABDOMEN: Soft, no tenderness. No guarding or rigidity. EXTREMITIES: Right leg with minimal swelling, slightly warm. Did have some scratch love. No open wound or any drainage. SKIN EXAMINATION: No rash and no mass palpable. NEUROLOGICAL: Patient is awake, alert, oriented. Mood and affect normal. LABS: Hemoglobin is 13, white count 9.1. BUN of 17, creatinine 0.71. Blood cultures have been negative so far. DIAGNOSTIC IMPRESSION AND PLAN: Patient with acute right lower extremity swelling predominantly with some redness with no fever or elevated white count. Underlying deep venous thrombosis needs to be ruled out, though less likely. PLAN: We will check ultrasound of the right lower extremity, which if negative and the patient did show overall clinical improvement, antibiotic was switched over to Bactrim DS one b.i.d. for about a week with close outpatient followup. MMODL / TRACYN: [id number] / [email or web address]
[2019-05-04 14:42] VITALS: BP 132/75; PULSE 61; RESP 21; TEMP 98.8
[2019-05-05] MEDS ORDERED: VANCOMYCIN TROUGH DUE 1 EACH MISC MISCELLANE ONE (07:00)
[2019-05-05] MEDS ORDERED: RIVAROXABAN 20 MG TAB PO SCH (21:00)
== END 2019-05-04 15:33 ==
LOC: EC 11:47 → 4SSUR 13:53
PROVIDERS: ADMIT Internal Medicine; ATTEND Internal Medicine
DX: L03.115 Cellulitis of right lower limb (principal); I48.91 Unspecified atrial fibrillation; I25.10 Atherosclerotic heart disease of native coronary artery without angina pectoris; E11.9 Type 2 diabetes mellitus without complications; I10 Essential (primary) hypertension; G40.909 Epilepsy, unspecified, not intractable, without status epilepticus; M21.961 Unspecified acquired deformity of right lower leg; F03.90 Unspecified dementia, unspecified severity, without behavioral disturbance, psychotic disturbance, mood disturbance, and anxiety; S31.809D Unspecified open wound of unspecified buttock, subsequent encounter; S80.812D Abrasion, left lower leg, subsequent encounter; S80.811D Abrasion, right lower leg, subsequent encounter; M85.861 Other specified disorders of bone density and structure, right lower leg; K57.90 Diverticulosis of intestine, part unspecified, without perforation or abscess without bleeding; G81.91 Hemiplegia, unspecified affecting right dominant side; G93.89 Other specified disorders of brain; F41.9 Anxiety disorder, unspecified; F32.9 Major depressive disorder, single episode, unspecified; Z86.711 Personal history of pulmonary embolism; Z86.69 Personal history of other diseases of the nervous system and sense organs; Z79.01 Long term (current) use of anticoagulants; Z79.890 Hormone replacement therapy; Z79.899 Other long term (current) drug therapy; Z86.19 Personal history of other infectious and parasitic diseases; Z87.19 Personal history of other diseases of the digestive system; Z87.11 Personal history of peptic ulcer disease; Z86.14 Personal history of Methicillin resistant Staphylococcus aureus infection; Z90.89 Acquired absence of other organs; Z90.49 Acquired absence of other specified parts of digestive tract; Z98.890 Other specified postprocedural states; Z87.891 Personal history of nicotine dependence; Z81.8 Family history of other mental and behavioral disorders; Z80.3 Family history of malignant neoplasm of breast; Z80.52 Family history of malignant neoplasm of bladder; Z80.1 Family history of malignant neoplasm of trachea, bronchus and lung; X58.XXXD Exposure to other specified factors, subsequent encounter
CPT/HCPCS: 96366 ×2; 96365; 99284; 36415; 80048; 82565; 83605; 83735; 85025; 85610; 85730; 87040; 73590; 93971; G0378 ×2; J3370 ×2

== ENCOUNTER 2020-06-06 14:56 | Emergency (ER) | payer MEDICARE, BC, OTHER ==
[2020-06-06 15:07] VITALS: RESP 18; TEMP 98.3
--- NOTE | 2020-06-06 15:16 | ED ---
Abdominal Pain HPI - General Chief Complaint: Abdominal Pain Stated Complaint: Abd pain Time Seen by Provider: 06/06/20 15:16 Source: patient, EMS Mode of arrival: EMS Limitations: no limitations - Related Data Home Medications Medication Instructions Recorded Confirmed Levothyroxine Sodium [Synthroid] 50 mcg PO QAM 07/08/14 05/03/19 Artificial Tears-Hypromellose 1 drop RIGHT EYE BID 02/15/17 05/03/19 [Artificial Tear Drops] Cetirizine HCl [Zyrtec] 10 mg PO DAILY@0700 02/15/17 05/03/19 levETIRAcetam [Keppra] 1,000 mg PO BID 02/15/17 05/03/19 Melatonin 3 mg PO HS 10/06/17 05/03/19 Rivaroxaban [Xarelto] 20 mg PO DIRECTED 10/06/17 05/03/19 diazePAM [Diazepam] 2 mg PO QID 10/06/17 05/03/19 Acetaminophen Tab [Tylenol] 650 mg PO Q6H PRN 11/13/18 05/03/19 amLODIPine [Norvasc] 10 mg PO QAM 11/13/18 05/03/19 polyethylene glycoL 3350 [Miralax] 17 gm PO DAILY 11/13/18 05/03/19 Escitalopram [Lexapro] 5 mg PO DAILY@0700 04/25/19 05/03/19 Hydrocodone/Acetaminophen [[place] 1 tab PO DAILY PRN 04/25/19 05/03/19 5-325] Lansoprazole [Prevacid] 15 mg PO DAILY@0700 04/25/19 05/03/19 Eucerin Lotion 1 applic TOPICAL BID@0700,1600 05/03/19 05/03/19 Previous Rx's Medication Instructions Recorded Metoprolol Tartrate [Lopressor] 50 mg PO BID tab 04/13/17 Tamsulosin [Flomax] 0.4 mg PO DAILY #5 cap 11/17/18 Docusate [Colace] 100 mg PO BID #20 capsule 11/23/18 Sulfamethox-Tmp 800-160Mg [Bactrim 1 tab PO Q12HR #28 tab 05/04/19 DS 800-160 mg] Allergies Allergy/AdvReac Type Severity Reaction Status Date / Time No Known Allergies Allergy Verified 05/03/19 13:59 Review of Systems ROS Statement: Those systems with pertinent positive or pertinent negative responses have been documented in the HPI. ROS Other: All systems not noted in ROS Statement are negative. Past Medical History Past Medical History: Atrial Fibrillation, Coronary Artery Disease (CAD), Dementia, Diabetes Mellitus, Hypertension, Liver Disease, Memory Impairment, Pulmonary Embolus (PE), Seizure Disorder, Skin Disorder Additional Past Medical History / Comment(s): NURSE AT [facility] STATES OPEN SORE ON COCCYX., PT SCRATCHES AND HAS SCRATCHES ON LEGS., DEMENTIA, HEPATITIS C- TREATED, UNKNOWN LAST SEIZURE., DIET CONTROLLED DIABETES, DIVERTICULOSIS, RIGHT HEMIPARESIS,CONSTIPATION,ENCEPHALOPATHY,GASTRIC ULCER, HX OF SBO WITH PARTIAL BOWEL RESECTION.,NONAMBULATORY,TRANSFERS WITH [employer] PERSON ASST. 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 , HX OF BRAIN DAMAGE R/T DRUG ABUSE. History of Any Multi-Drug Resistant Organisms: ESBL, MRSA Date of last positivie culture/infection: 04/02/17 MDRO Source:: sputum esbl, LT FOOT WOUND Past Surgical History: Adenoidectomy, Bowel Resection, Hernia Repair, Tonsillectomy Additional Past Surgical History / Comment(s): wound debridement to L FOOT, LYSIS OF ADHESIONS.PEG INSERTION & Removal, EGD, INCISIONAL HERNIA 11/2018 AT [facility]. SBO WITH PARTIAL BOWEL RESECTION (2017) Past Anesthesia/Blood Transfusion Reactions: No Reported Reaction Additional Past Anesthesia/Blood Transfusion Reaction / Comment(s): BROTHER- CINDY MADERA STATES NO PROBLEMS WITH ANESTHESIA AND NO FAMILY HX OF PROBLEMS WITH ANESTHESIA. Past Psychological History: Anxiety, Depression Smoking Status: Never smoker Past Alcohol Use History: None Reported Past Drug Use History: None Reported - Past Family History Father Family Medical History: Dementia Additional Family Medical History / Comment(s): Father of alzheimer dementia at the age of 87yrs. Mother Family Medical History: Cancer Additional Family Medical History / Comment(s): Mother had breast cancer and had a cancerous tumor removed from outside her bladder. She at the age of 87yrs from lung cancer. General Exam Limitations: no limitations Course Vital Signs 06/06/20 14:59 Temperature 98.3 F Pulse Rate 66 Respiratory 18 Rate Blood Pressure 120/70 O2 Sat by Pulse 91 L Oximetry Disposition Referrals: Eddie Golden MD [Primary Care Provider] - 1-2 days
--- NOTE | 2020-06-06 15:42 | ED ---
General Adult HPI - General Chief complaint: Abdominal Pain Stated complaint: Abd pain Time Seen by Provider: 06/06/20 15:00 Source: patient, EMS, RN notes reviewed, old records reviewed Mode of arrival: EMS Limitations: no limitations - History of Present Illness Initial comments: This is a 65-year-old male who presents emergency Department she is a poor historian but he does state his abdomen hurts everywhere. According to EMS that the same thing they were told by the patient. There was [facility] that [facility] and stated he was staring out for a few seconds and not responding but then he responded normally. The person he was saying that was not there to talk to EMS so it's hearsay information. The patient denies any nausea vomiting or diarrhea patient denies any fever patient denies chest pain difficulty breathing shortness of breath. Patient denies any injury or trauma. - Related Data Home Medications Medication Instructions Recorded Confirmed Levothyroxine Sodium [Synthroid] 50 mcg PO DAILY 07/08/14 06/06/20 Artificial Tears-Hypromellose 1 drop RIGHT EYE BID 02/15/17 06/06/20 [Artificial Tear Drops] levETIRAcetam [Keppra] 1,000 mg PO BID 02/15/17 06/06/20 Melatonin 3 mg PO HS 10/06/17 06/06/20 Rivaroxaban [Xarelto] 20 mg PO HS 10/06/17 06/06/20 diazePAM [Diazepam] 2 mg PO QID 10/06/17 06/06/20 Acetaminophen Tab [Tylenol] 650 mg PO Q6H PRN 11/13/18 06/06/20 polyethylene glycoL 3350 [Miralax] 17 gm PO DAILY 11/13/18 06/06/20 Escitalopram [Lexapro] 5 mg PO DAILY@0700 04/25/19 06/06/20 Hydrocodone/Acetaminophen [[place] 1 tab PO DAILY PRN 04/25/19 06/06/20 5-325] Lansoprazole [Prevacid] 15 mg PO DAILY@0700 04/25/19 06/06/20 Docusate [Colace] 100 mg PO BID@0700,1600 06/06/20 06/06/20 Previous Rx's Medication Instructions Recorded Metoprolol Tartrate [Lopressor] 50 mg PO BID tab 04/13/17 Tamsulosin [Flomax] 0.4 mg PO DAILY #5 cap 11/17/18 Allergies Allergy/AdvReac Type Severity Reaction Status Date / Time No Known Allergies Allergy Verified 06/06/20 15:51 Review of Systems ROS Statement: Those systems with pertinent positive or pertinent negative responses have been documented in the HPI. ROS Other: All systems not noted in ROS Statement are negative. Past Medical History Past Medical History: Atrial Fibrillation, Coronary Artery Disease (CAD), Dementia, Diabetes Mellitus, Hypertension, Liver Disease, Memory Impairment, Pulmonary Embolus (PE), Seizure Disorder, Skin Disorder Additional Past Medical History / Comment(s): NURSE AT [facility] STATES OPEN SORE ON COCCYX., PT SCRATCHES AND HAS SCRATCHES ON LEGS., DEMENTIA, HEPATITIS C- TREATED, UNKNOWN LAST SEIZURE., DIET CONTROLLED DIABETES, DIVERTICULOSIS, RIGHT HEMIPARESIS,CONSTIPATION,ENCEPHALOPATHY,GASTRIC ULCER, HX OF SBO WITH PARTIAL BOWEL RESECTION.,NONAMBULATORY,TRANSFERS WITH [employer] PERSON ASST. 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 , HX OF BRAIN DAMAGE R/T DRUG ABUSE. History of Any Multi-Drug Resistant Organisms: ESBL, MRSA Date of last positivie culture/infection: 04/02/17 MDRO Source:: sputum esbl, LT FOOT WOUND Past Surgical History: Adenoidectomy, Bowel Resection, Hernia Repair, Tonsillectomy Additional Past Surgical History / Comment(s): wound debridement to L FOOT, LYSIS OF ADHESIONS.PEG INSERTION & Removal, EGD, INCISIONAL HERNIA 11/2018 AT [facility]. SBO WITH PARTIAL BOWEL RESECTION (2017) Past Anesthesia/Blood Transfusion Reactions: No Reported Reaction Additional Past Anesthesia/Blood Transfusion Reaction / Comment(s): BROTHER- CINDY MADERA STATES NO PROBLEMS WITH ANESTHESIA AND NO FAMILY HX OF PROBLEMS WITH ANESTHESIA. Past Psychological History: Anxiety, Depression Smoking Status: Never smoker Past Alcohol Use History: None Reported Past Drug Use History: None Reported - Past Family History Father Family Medical History: Dementia Additional Family Medical History / Comment(s): Father of alzheimer dementia at the age of 87yrs. Mother Family Medical History: Cancer Additional Family Medical History / Comment(s): Mother had breast cancer and had a cancerous tumor removed from outside her bladder. She at the age of 87yrs from lung cancer. General Exam - General Exam Comments Initial Comments: GENERAL: Patient is well-developed and well-nourished. Patient is nontoxic and well- hydrated and is in no acute distress. ENT: Neck is soft and supple. No significant lymphadenopathy is noted. Oropharynx is clear. Moist mucous membranes. Neck has full range of motion without eliciting any pain. were felt. EYES: The sclera were anicteric and conjunctiva were pink and moist. Extraocular movements were intact and pupils were equal round and reactive to light. Eyelids were unremarkable. PULMONARY: Unlabored respirations. Good breath sounds bilaterally. No audible rales rhonchi or wheezing was noted. CARDIOVASCULAR: There is a regular rate and rhythm without any murmurs gallops or rubs. ABDOMEN: Soft and nontender with normal bowel sounds. Patient has a ventral hernias is completely reducible. SKIN: Skin is clear with no lesions or rashes and otherwise unremarkable. NEUROLOGIC: Patient is alert and oriented x3. Cranial nerves II through XII are grossly intact. Motor and sensory are also intact. Normal speech, volume and content. Symmetrical smile. MUSCULOSKELETAL: Normal extremities with adequate strength and full range of motion. No lower extremity swelling or edema. No calf tenderness. LYMPHATICS: No significant lymphadenopathy is noted PSYCHIATRIC: Normal psychiatric evaluation. Limitations: no limitations Course Vital Signs 06/06/20 06/06/20 06/06/20 14:59 16:07 17:00 Temperature 98.3 F Pulse Rate 66 65 65 Respiratory 18 18 18 Rate Blood Pressure 120/70 109/78 119/78 O2 Sat by Pulse 91 L 96 96 Oximetry Medical Decision Making - Medical Decision Making KUB shows no acute abnormality. I will back and her multiple times the patient was never in any distress his abdomen was nontender to palpation is ventral hernia was always reducible and he had no other complaints. - Lab Data Result diagrams: 06/06/20 15:55 06/06/20 15:55 Lab Results 06/06/20 06/06/20 06/06/20 Range/Units 15:29 15:55 15:55 WBC 9.9 (3.8-10.6) k/uL RBC 5.09 (4.30-5.90) m/uL Hgb 11.7 L (13.0-17.5) gm/dL Hct 36.9 L (39.0-53.0) % MCV 72.5 L (80.0-100.0) fL MCH 22.9 L (25.0-35.0) pg MCHC 31.6 (31.0-37.0) g/dL RDW 19.1 H (11.5-15.5) % Plt Count 105 L (150-450) k/uL MPV 10.0 Neutrophils % 79 % Lymphocytes % 10 % Monocytes % 8 % Eosinophils % 1 % Basophils % 0 % Neutrophils # 7.8 H (1.3-7.7) k/uL Lymphocytes # 0.9 L (1.0-4.8) k/uL Monocytes # 0.8 (0-1.0) k/uL Eosinophils # 0.1 (0-0.7) k/uL Basophils # 0.0 (0-0.2) k/uL Hypochromasia Moderate Anisocytosis Slight Microcytosis Marked Sodium 139 (137-145) mmol/L Potassium 4.9 (3.5-5.1) mmol/L Chloride 106 (98-107) mmol/L Carbon Dioxide 29 (22-30) mmol/L Anion Gap 4 mmol/L BUN 19 (9-20) mg/dL Creatinine 0.58 L (0.66-1.25) mg/dL Est GFR (CKD-EPI)AfAm >90 (>60 ml/min/1.73 sqM) Est GFR (CKD-EPI)NonAf >90 (>60 ml/min/1.73 sqM) Glucose 83 (74-99) mg/dL Plasma Lactic Acid Adrian (0.7-2.0) mmol/L Calcium 7.9 L (8.4-10.2) mg/dL Total Bilirubin 1.1 (0.2-1.3) mg/dL AST 32 (17-59) U/L ALT 43 (4-49) U/L Alkaline Phosphatase 60 (38-126) U/L Total Protein 5.8 L (6.3-8.2) g/dL Albumin 2.9 L (3.5-5.0) g/dL Amylase 87 (30-110) U/L Lipase 222 (23-300) U/L Urine Color Yellow Urine Appearance Clear (Clear) Urine pH 6.0 (5.0-8.0) Ur Specific [place] 1.028 (1.001-1.035) Urine Protein Negative (Negative) Urine Glucose (UA) Negative (Negative) Urine Ketones Negative (Negative) Urine Blood Negative (Negative) Urine Nitrite Negative (Negative) Urine Bilirubin Negative (Negative) Urine Urobilinogen >12.0 (<2.0) mg/dL Ur Leukocyte Esterase Negative (Negative) 06/06/20 Range/Units 15:55 WBC (3.8-10.6) k/uL RBC (4.30-5.90) m/uL Hgb (13.0-17.5) gm/dL Hct (39.0-53.0) % MCV (80.0-100.0) fL MCH (25.0-35.0) pg MCHC (31.0-37.0) g/dL RDW (11.5-15.5) % Plt Count (150-450) k/uL MPV Neutrophils % % Lymphocytes % % Monocytes % % Eosinophils % % Basophils % % Neutrophils # (1.3-7.7) k/uL Lymphocytes # (1.0-4.8) k/uL Monocytes # (0-1.0) k/uL Eosinophils # (0-0.7) k/uL Basophils # (0-0.2) k/uL Hypochromasia Anisocytosis Microcytosis Sodium (137-145) mmol/L Potassium (3.5-5.1) mmol/L Chloride (98-107) mmol/L Carbon Dioxide (22-30) mmol/L Anion Gap mmol/L BUN (9-20) mg/dL Creatinine (0.66-1.25) mg/dL Est GFR (CKD-EPI)AfAm (>60 ml/min/1.73 sqM) Est GFR (CKD-EPI)NonAf (>60 ml/min/1.73 sqM) Glucose (74-99) mg/dL Plasma Lactic Acid Adrian 0.8 (0.7-2.0) mmol/L Calcium (8.4-10.2) mg/dL Total Bilirubin (0.2-1.3) mg/dL AST (17-59) U/L ALT (4-49) U/L Alkaline Phosphatase (38-126) U/L Total Protein (6.3-8.2) g/dL Albumin (3.5-5.0) g/dL Amylase (30-110) U/L Lipase (23-300) U/L Urine Color Urine Appearance (Clear) Urine pH (5.0-8.0) Ur Specific [place] (1.001-1.035) Urine Protein (Negative) Urine Glucose (UA) (Negative) Urine Ketones (Negative) Urine Blood (Negative) Urine Nitrite (Negative) Urine Bilirubin (Negative) Urine Urobilinogen (<2.0) mg/dL Ur Leukocyte Esterase (Negative) Disposition Clinical Impression: Abdominal pain Disposition: HOME SELF-CARE Condition: Good Is patient prescribed a controlled substance at d/c from ED?: No Referrals: Eddie Golden MD [Primary Care Provider] - 1-2 days Time of Disposition: 17:37
--- NOTE | 2020-06-06 16:12 | XR ---
EXAMINATION TYPE: XR KUB DATE OF EXAM: 06/06/2020 4:03 PM CLINICAL HISTORY: Abdominal pain and nausea. TECHNIQUE: Two supine KUB images of the abdomen are obtained. COMPARISON: CT abdomen December 15, 2018. FINDINGS: Elevated right hemidiaphragm redemonstrated. Scattered gas seen in nondistended small and l arge bowel loops . There are scattered bilateral pelvic phleboliths. Persistent patchy right basilar atelectasis. Transitional type vertebra lumbosacral junction. IMPRESSION: Overall nonobstructive bowel gas pattern.
[2020-06-06 16:27] LABS: ALT 43 U/L (4-49); AST 32 U/L (17-59); African American GFR (CKD) >90 (>60 ml/min/1.73 sqM); Albumin 2.9 g/dL (3.5-5.0); Alkaline Phosphatase 60 U/L (38-126); Amylase 87 U/L (30-110); Anion Gap 4 mmol/L; Blood Urea Nitrogen 19 mg/dL (9-20); Calcium 7.9 mg/dL (8.4-10.2); Carbon Dioxide 29 mmol/L (22-30); Chloride 106 mmol/L (98-107); Glucose 83 mg/dL (74-99); Lipase 222 U/L (23-300); Non-African American GFR(CKD) >90 (>60 ml/min/1.73 sqM); Potassium 4.9 mmol/L (3.5-5.1); Sodium 139 mmol/L (137-145); Total Bilirubin 1.1 mg/dL (0.2-1.3); Total Protein 5.8 g/dL (6.3-8.2)
[2020-06-06 16:39] VITALS: PULSE 65
[2020-06-06 16:39] LABS: Anisocytosis Slight; Basophils % (A) 0 %; Eosinophils # (A) 0.1 k/uL (0-0.7); Eosinophils % (A) 1 %; HCT 36.9 % (39.0-53.0); HGB 11.7 gm/dL (13.0-17.5); Hypochromasia Moderate; Lymphocytes # (A) 0.9 k/uL (1.0-4.8); Lymphocytes % (A) 10 %; MCH 22.9 pg (25.0-35.0); MCHC 31.6 g/dL (31.0-37.0); MCV 72.5 fL (80.0-100.0); Microcytosis Marked; Monocytes # (A) 0.8 k/uL (0-1.0); Monocytes % (A) 8 %; Neutrophils # (A) 7.8 k/uL (1.3-7.7); Neutrophils % (A) 79 %; Platelet Count 105 k/uL (150-450); RBC 5.09 m/uL (4.30-5.90); RDW 19.1 % (11.5-15.5); WBC 9.9 k/uL (3.8-10.6)
[2020-06-06] MEDS ORDERED: SODIUM CHLORIDE 0.9% 500 ML 500 ML IV ONE (17:02)
[2020-06-06 17:26] LABS: Appearance,Urine Clear (Clear); Bilirubin,Urine Negative (Negative); Blood,Urine Negative (Negative); Color,Urine Yellow; Glucose,Urine (UA) Negative (Negative); Ketones,Urine Negative (Negative); Leukocyte Esterase,Urine Negative (Negative); Nitrite,Urine Negative (Negative); Protein,Urine Negative (Negative); Specific Gravity,Urine 1.028 (1.001-1.035); Urobilinogen,Urine >12.0 mg/dL (<2.0)
[2020-06-06 18:18] VITALS: BP 107/61
== END 2020-06-06 18:37 | disposition home or self-care (01) ==
LOC: EC 14:56
DX: K43.9 Ventral hernia without obstruction or gangrene (principal); F41.9 Anxiety disorder, unspecified; F32.9 Major depressive disorder, single episode, unspecified; I48.91 Unspecified atrial fibrillation; I10 Essential (primary) hypertension; G40.909 Epilepsy, unspecified, not intractable, without status epilepticus; Z79.01 Long term (current) use of anticoagulants; Z79.899 Other long term (current) drug therapy; Z86.14 Personal history of Methicillin resistant Staphylococcus aureus infection; Z86.711 Personal history of pulmonary embolism; Z90.49 Acquired absence of other specified parts of digestive tract; Z90.89 Acquired absence of other organs
CPT/HCPCS: 36415; 74018; 80053; 81003; 82150; 83605; 83690; 85025; 96360; 99285

== ENCOUNTER 2021-01-02 07:03 | Day surgery (SDC) | payer MEDICARE, BC, OTHER ==
[2020-12-31 14:47] VITALS: BMI 19.9
[~2021-01-02 07:03] MED LIST changes: -DEXAMETHASONE SOD PHOSPHATE 10 MG/ML 1 ML VIAL IV ONE; -HYDROmorphone 0.5 MG/0.5 ML SYRINGE IVP PRN; +LIDOCAINE 1% (10MG/ML) FOR IV START INTRADERMA PRN; -MIDAZOLAM 2 MG/2 ML VIAL IV PRN; -ONDANSETRON 4 MG/2 ML VIAL IVP ONE; -SCOPOLAMINE 1.5MG/72HR PATCH TRANSDERM ONE
[2021-01-02 07:43] VITALS: TEMP 98.8
[2021-01-02] MEDS ORDERED: PROPOFOL 10 MG/ML 20 ML VIAL IV ONE (09:12)
--- NOTE | 2021-01-02 09:33 | P.PCN ---
Date of Procedure: 01/02/21 Procedure(s) Performed: BRIEF HISTORY: Patient is a 65-year-old pleasant white male scheduled for an elective colonoscopy as a part of evaluation of prior history of colon polyps. Her last coloscopy was 5 years ago. PROCEDURE PERFORMED: Colonoscopy. PREOPERATIVE DIAGNOSIS: History Of colon polyps. IV sedation per Anesthesia. PROCEDURE: After informed consent was obtained, the patient, was brought into the endoscopy unit. IV sedation was administered by Anesthesia under continuous monitoring. Digital rectal examination was normal. Initially the Olympus CF-160 flexible video colonoscope was then inserted in the rectum, gradually advanced into the cecum without any difficulty. Careful examination was performed as the scope was gradually being withdrawn. Ileocecal valve and the appendiceal orifice were visualized and appeared normal. Prep was excellent. Mucosa of the cecum, ascending colon, transverse colon, descending colon, sigmoid colon, and rectum appeared normal. Retroflexion was performed in the rectum and no lesions were seen. The patient tolerated the procedure well. IMPRESSION: Normal-appearing colon from rectum to cecum with no evidence of colorectal neoplasia. RECOMMENDATIONS: Findings of this examination were discussed with the patient is well as his family. He was advised to have a repeat screening colonoscopy in 10 years..
[2021-01-02 09:39] VITALS: RESP 18
[2021-01-02 09:53] VITALS: BP 116/77; PULSE 71
== END 2021-01-02 10:28 | disposition home or self-care (01) ==
LOC: ORWHC2ENDO 07:03
PROVIDERS: ATTEND Internal Medicine Gastroenterology
DX: Z12.11 Encounter for screening for malignant neoplasm of colon (principal); Z86.010 Personal history of colon polyps; I10 Essential (primary) hypertension; I25.10 Atherosclerotic heart disease of native coronary artery without angina pectoris; I48.91 Unspecified atrial fibrillation; Z79.01 Long term (current) use of anticoagulants; I69.351 Hemiplegia and hemiparesis following cerebral infarction affecting right dominant side; F03.90 Unspecified dementia, unspecified severity, without behavioral disturbance, psychotic disturbance, mood disturbance, and anxiety; Z86.19 Personal history of other infectious and parasitic diseases; Z79.899 Other long term (current) drug therapy
CPT/HCPCS: J2704; G0105; 45378

== ENCOUNTER → 2021-04-03 | Outpatient (CLI) | payer MEDICARE, BC, OTHER ==
--- NOTE | 2021-04-03 13:31 | CT ---
EXAMINATION TYPE: CT chest abdomen wo/w con DATE OF EXAM: 04/03/2021 COMPARISON: Correlation CT abdomen 12/15/2018 HISTORY: 66-year-old male R63.4, abnormal weight loss TECHNIQUE: Contiguous axial scanning of the chest and abdomen following administration of 100 ml Isov ue 300 IV contrast. Delayed images through the kidneys and coronal/sagittal reconstructions performe d. CT DLP: 1032.28 mGycm Automated exposure control for dose reduction was used. FINDINGS: CHEST: Heart normal size but there appears to be prominence to the right atrium. Small anterior pericardial effusion increased in 8 mm. Mild LAD coronary artery calcifications. Borderline ectatic ascending aorta 3.5 cm with mild atherosclerotic arch calcifications and conventio nal arch vessel branching anatomy. Ectatic upper descending thoracic aorta 3.1 cm. Large caliber to the main right and left pulmonary arteries measuring 2.8 and 2.7 cm, respectively, s uggesting underlying pulmonary arterial hypertension. No thoracic lymphadenopathy. Small patch of groundglass subpleural lateral right upper lobe, axial image 24. Minimal groundglass p eriphery of the right midlung, axial image 35. Some strandy areas of atelectasis in the lower lungs. Minimal tree-in-bud opacity posterior left lower lobe, axial image 65. Mild centrilobular emphysema. Otherwise, no consolidation or pleural effusion. ABDOMEN: Gallstones filling the gallbladder lumen measuring up to 1.7 cm. No focal liver lesion. Portal venous system is patent. Mild dilated bile duct measuring up to 8 mm. No filling defect is identified along the course of the bile duct. Further correlation with alkaline phosphatase and bilirubin levels recommended. Adrenal glands, right kidney, spleen, and pancreas show no gross abnormality allowing for motion kit fact. Left kidney shows subcentimeter hypodensities measuring up to 6 mm too small for head CT due to radia tion, likely cysts. Mild bilateral pelvicaliectasis is nonspecific, probably transient. There is rectus diastases measuring 6.1 cm wide with some anterior bulging nonobstructed bowel loops. Suspect a redundant sigmoid colon. Moderate scattered stool burden. Scattered borderline distended sm all bowel loops measuring up to 2.9 cm there are no discrete transition point identified. Mild generalized anasarca change. No free air or free fluid. No obvious lymphadenopathy aligned for p aucity of intra-abdominal fat. Pelvis is not imaged. BONES: Moderate to advanced degenerative disc disease L5-S1. Facet arthropathy lower lumbar spine. No osseou s destructive process. IMPRESSION: 1. COPD WITH MILD EMPHYSEMA. ADDITIONAL FINDINGS SUGGEST UNDERLYING PULMONARY ARTERIAL HYPERTENSION. NO 2. A FEW SMALL PATCHES OF GROUNDGLASS DENSITY IN THE LUNGS AND A FOCUS OF TREE-IN-BUD OPACITY IN THE LEFT LOWER LOBE. FINDINGS SUGGEST AREAS OF NONSPECIFIC INFECTIOUS/INFLAMMATORY FOCI. 3. CHOLELITHIASIS. THE BILE DUCT IS ALSO MILDLY DILATED AT 8 MM. THIS MAY BE CHRONIC FOR THE PATIENT. CORRELATE WITH ALKALINE PHOSPHATASE AND BILIRUBIN LEVELS TO EXCLUDE EARLY BILIARY OBSTRUCTION. 4. SCATTERED BORDERLINE DILATED SMALL BOWEL LOOPS WITH AIR-FLUID LEVELS, DISTENDED UP TO 2.9 CM BUT W ITHOUT ANY DISCRETE TRANSITION POINT IDENTIFIED. CORRELATE FOR ENTERITIS OR GENERALIZED ILEUS. 5. A RECTUS DIASTASES MEASURING 6.1 CM WIDE WITH SOME ANTERIOR BULGING BOWEL LOOPS. 6. MILD GENERALIZED ANASARCA.
--- NOTE | 2021-04-03 13:35 | CT ---
EXAMINATION TYPE: CT brain wo/w con DATE OF EXAM: 04/03/2021 COMPARISON: None HISTORY: 66-year-old male R63.4, abnormal weight loss TECHNIQUE: Examination was done in axial plane before and after administration of 100 mL Isovue 300 IV contrast. Coronal and sagittal reconstructions performed. CT DLP: 1032.28 mGycm Automated exposure control for dose reduction was used. FINDINGS: There is no evidence of acute intracranial hemorrhage, acute ischemic changes, mass, mass-effect, or extra-axial fluid collection. There is no effacement of cerebral sulci or basal subarachnoid cister ns. There is no hydrocephalus. There is no midline shift. Reece-white matter distinction is preserv ed. Atherosclerotic calcifications within the carotid siphons. There is persistent origin right pos terior cerebral artery. Calvarial artifact likely relating to motion. Partially empty sella. No enhancing intracranial lesion identified. Dural venous sinuses appear patent. Hypodensities within the bilateral basal ganglia could represent prominent perivascular spaces or are as of old lacunar infarcts. Orbits and globes are intact. Paranasal sinuses and mastoid air cells are well pneumatized. IMPRESSION: Prominent motion artifacts. No enhancing intracranial lesions or acute intracranial abnormality seen. Either old basal ganglionic lacunar infarcts versus prominent bilateral perivascular spaces.
== END | disposition home or self-care (01) ==
LOC: RADCTMAIN 10:27
PROVIDERS: ATTEND Internal Medicine
DX: J43.9 Emphysema, unspecified (principal); I27.21 Secondary pulmonary arterial hypertension; K80.20 Calculus of gallbladder without cholecystitis without obstruction; R60.1 Generalized edema
CPT/HCPCS: 70470; 71270; 74170; Q9967

== ENCOUNTER 2023-01-26 04:44 | Inpatient (IN) | payer MEDICARE, BC, OTHER ==
[2023-01-26] MEDS ORDERED: SODIUM CHLORIDE 0.9% 1,000 ML IV STA (05:01)
[2023-01-26] MEDS ORDERED: NOREPINEPHRINE 32 MG in SODIUM CHLORIDE 0.9% 218 ML IV ONE ×2 (05:12→05:21)
[2023-01-26] MEDS ORDERED: NOREPINEPHRINE 4 MG in SODIUM CHLORIDE 0.9% 250 ML IV ONE (05:16)
--- NOTE | 2023-01-26 05:28 | ED ---
General Adult HPI - General Source: patient, EMS Mode of arrival: EMS <Omid Mckeon - Last Filed: 01/26/23 07:05> <Carlito Xiao - Last Filed: 01/26/23 08:43> - General Chief complaint: Syncope Stated complaint: Syncope Time Seen by Provider: 01/26/23 04:54 - History of Present Illness Initial comments: Dictation was produced using [employer] dictation software. please excuse any grammatical, word or spelling errors. Chief Complaint: 67-year-old male presents to the ER from senior living for syncope History of Present Illness: 67-year-old male presents emergency department for syncopal episode. He is allegedly on the toilet when he syncopized. group home staff checked his blood pressure was found to be low with systolics in the 50s. EMS was called. EMS reports that they had normal blood pressures with systolic measuring 130. Patient is allegedly full code. He is a poor historian states that his abdominal pain. Unable to obtain ROS secondary to mental status (Omid Mckeon) - Related Data Home Medications Medication Instructions Recorded Confirmed Levothyroxine Sodium [Synthroid] 50 mcg PO DAILY 07/08/14 01/26/23 Artificial Tears-Hypromellose 1 drop RIGHT EYE BID@0500,2200 02/15/17 01/26/23 [Artificial Tear Drops] Melatonin 3 mg PO HS 10/06/17 01/26/23 Rivaroxaban [Xarelto] 20 mg PO DAILY@1600 10/06/17 01/26/23 diazePAM 2 mg PO QID@07,11,16,20 10/06/17 01/26/23 polyethylene glycoL 3350 [Miralax] 17 gm PO DAILY 11/13/18 01/26/23 Escitalopram [Lexapro] 5 mg PO DAILY 04/25/19 01/26/23 Memantine [Namenda] 10 mg PO BID 11/28/20 01/26/23 Omeprazole 20 mg PO HS 11/28/20 01/26/23 Acetaminophen [Tylenol 8 Hour] 650 mg PO Q6H PRN 01/26/23 01/26/23 Docusate [Colace] 100 mg PO BID 01/26/23 01/26/23 Magnesium Hydroxide [Milk of 2,400 mg PO DAILY PRN 01/26/23 01/26/23 Magnesia] Metoprolol Tartrate [Lopressor] 12.5 mg PO BID 01/26/23 01/26/23 Sennosides [Senokot] 17.2 mg PO DAILY 01/26/23 01/26/23 Sodium Chloride [[place]] 2 spray EA NOSTRIL Q3H PRN 01/26/23 01/26/23 Transderm Scop 1.5mg 1 patch TRANSDERM Q72H 01/26/23 01/26/23 polyethylene glycoL 3350 [Miralax] 17 gm PO DAILY PRN 01/26/23 01/26/23 Previous Rx's Medication Instructions Recorded Tamsulosin [Flomax] 0.4 mg PO DAILY #5 cap 11/17/18 Allergies Allergy/AdvReac Type Severity Reaction Status Date / Time No Known Allergies Allergy Verified 01/26/23 07:59 Review of Systems ROS Other: All systems not noted in ROS Statement are negative. <Omid Mckeon - Last Filed: 01/26/23 07:05> ROS Other: All systems not noted in ROS Statement are negative. <Carlito Xiao - Last Filed: 01/26/23 08:43> ROS Statement: Those systems with pertinent positive or pertinent negative responses have been documented in the HPI. 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 , HX OF BRAIN DAMAGE R/T DRUG ABUSE, abdominal hernia,rt hemiparesis History of Any Multi-Drug Resistant Organisms: ESBL, MRSA Date of last positivie culture/infection: 04/02/17 MDRO Source:: sputum esbl, LT FOOT WOUND Past Surgical History: Adenoidectomy, Bowel Resection, Hernia Repair, Tonsillectomy Additional Past Surgical History / Comment(s): wound debridement to L FOOT, LY SIS OF ADHESIONS.PEG INSERTION & Removal, EGD, INCISIONAL HERNIA 11/2018 AT [facility]. SBO WITH PARTIAL BOWEL RESECTION (2017) Past Anesthesia/Blood Transfusion Reactions: No Reported Reaction Additional Past Anesthesia/Blood Transfusion Reaction / Comment(s): BROTHER- CINDY MADERA STATES NO PROBLEMS WITH ANESTHESIA AND NO FAMILY HX OF PROBLEMS WITH ANESTHESIA. Past Psychological History: Anxiety, Depression Smoking Status: Never smoker - Past Family History Father Family Medical History: Dementia Additional Family Medical History / Comment(s): Father of alzheimer dementia at the age of 87yrs. Mother Family Medical History: Cancer Additional Family Medical History / Comment(s): Mother had breast cancer and had a cancerous tumor removed from outside her bladder. She at the age of 87yrs from lung cancer. <Omid Mckeon - Last Filed: 01/26/23 07:05> General Exam <Omid Mckeon - Last Filed: 01/26/23 07:05> - General Exam Comments Initial Comments: PHYSICAL EXAM: General Impression: Alert and oriented x3, cachexic, lethargic HEENT: Normocephalic atraumatic, extra-ocular movements intact, pupils equal and reactive to light bilaterally, tremulous membranes Cardiovascular: Heart regular rate and rhythm Chest: no retractions, no tachypnea Abdomen: Ventral herniated bowel with distention, palpatory tenderness to the abdomen diffusely Musculoskeletal: Pulses present and equal in all extremities, no peripheral edema Motor: no focal deficits noted Neurological: CN II-XII grossly intact, no focal motor or sensory deficits noted Skin: Intact with no visualized rashes (Omid Mckeon) Course Vital Signs 01/26/23 01/26/23 01/26/23 04:49 05:25 05:31 Temperature 97.5 F L Pulse Rate 60 Respiratory 20 Rate Blood Pressure 67/33 84/50 75/51 O2 Sat by Pulse Oximetry 01/26/23 01/26/23 01/26/23 06:23 06:41 07:15 Temperature 97.6 F Pulse Rate 77 78 76 Respiratory 24 24 20 Rate Blood Pressure 74/45 93/57 67/44 O2 Sat by Pulse 85 L 92 L 84 L Oximetry EKG Findings - EKG Comments: EKG Findings:: My EKG interpretation: Ventricular rate 84, right bundle-branch block, MO interval 129, QRS 137, QTc 454. No MO prolongation, no QTC prolongation, no ST or T-wave changes noted. Overall, this EKG is unremarkable <Omid Mckeon - Last Filed: 01/26/23 07:05> Medical Decision Making - Lab Data Result diagrams: 01/26/23 05:28 01/26/23 05:28 <Omid Mckeon - Last Filed: 01/26/23 07:05> - Lab Data Result diagrams: 01/26/23 05:28 01/26/23 05:28 <EricksonbirgitCarlito - Last Filed: 01/26/23 08:43> - Medical Decision Making Was pt. sent in by a medical professional or institution ([facility], CARDIAC REHAB NURSE, urgent care, hospital, or senior living...) When possible be specific @ -No Did you speak to anyone other than the patient for history (EMS, parent, family, police, friend...)? What history was obtained from this source @ -No Did you review nursing and triage notes (agree or disagree)? Why? @ -I reviewed and agree with nursing and triage notes Were old charts reviewed (outside hosp., previous admission, EMS record, old EKG, old radiological studies, urgent care reports/EKG's, senior living records)? Report findings @ -No old charts were reviewed Differential Diagnosis (chest pain, altered mental status, abdominal pain women, abdominal pain men, vaginal bleeding, musculoskeletal, weakness, fever, dyspnea, syncope, headache, dizziness, GI bleed, back pain, seizure, CVA, palpatations, mental health)? @ -Differential Weakness: Hypoglycemia, shock, sepsis, hyponatremia, anemia, infection, IN, ETOH, adverse medicine reaction, overdose, stroke, this is not meant to be an all-inclusive list. EKG interpreted by me (3pts min.). @ -See above X-rays interpreted by me (1pt min.). @ -Chest x-ray is nonacute CT interpreted by me (1pt min.). @ -Scan abdomen and pelvis pending U/S interpreted by me (1pt. min.). @ -None done What testing was considered but not performed or refused? (CT, X-rays, U/S, labs)? Why? @ -None What meds were considered but not given or refused? Why? @ -None Did you discuss the management of the patient with other professionals (mustapha ramos i.e. , PA, CARDIAC REHAB NURSE, lab, RT, psych nurse, social service director, public health outreach worker, teacher, correction officer supervisor, manager case management)? Give summary @ -No Was smoking cessation discussed for >3mins.? @ -No Was critical care preformed (if so, how long)? @ -No Were there social determinants of health that impacted care today? How? (Homelessness, low income, unemployed, alcoholism, drug addiction, transportati on, low edu. Level, literacy, decrease access to med. care, custodial, rehab)? @ -No Was there de-escalation of care discussed even if they declined (Discuss DNR or withdrawal of care, Hospice)? DNR status @ -No What co-morbidities impacted this encounter? (DM, HTN, Smoking, COPD, CAD, Cancer, CVA, ARF, Chemo, Hep., AIDS, mental health diagnosis, sleep apnea, morbid obesity)? @ -None Was patient admitted / discharged? Hospital course, mention meds given and route, prescriptions, significant lab abnormalities, going to OR and other pertinent info. @ -67-year-old male presents emergency Department after syncopal episode. He is hypertensive on arrival. Right femoral central line was placed. Patient on pressors given 30 mL per KG bolus based on ideal body weight. Available labs showed leukocytosis of 15.0. Microcytic anemia. Lactic acid level IX.6. Urinalysis negative. And a computed tomography scan of the abdomen and pelvis. Patient care signed out to Dr. Xiao at 7:00 AM (Omid Mckeon) Patient care was signed out at shift change awaiting CT of the abdomen and pelvis. Patient immediately reevaluated, he is alert, pale and cachectic. He hasn't distended rigid abdomen with tenderness to palpation. Concern for bowel obstruction or ischemic bowel given the lactic acid of 9.6. CT does confirm that he has a bowel obstruction with likely ischemic bowel. Patient had been started on IV fluids, vasopressors and IV antibiotics prior to shift change. Case is discussed with Dr. Boutt covering for general surgery, Dr. Humphrey for the ICU and Dr. Rodriguez who will admit. Critical care time 35 minutes (Carlito Xiao) - Lab Data Lab Results 01/26/23 01/26/23 01/26/23 Range/Units 05:28 05:28 05:28 WBC 15.0 H (3.8-10.6) k/uL RBC 4.08 L (4.30-5.90) m/uL Hgb 8.7 L (13.0-17.5) gm/dL Hct 29.9 L (39.0-53.0) % MCV 73.3 L (80.0-100.0) fL MCH 21.2 L (25.0-35.0) pg MCHC 29.0 L (31.0-37.0) g/dL RDW 16.2 H (11.5-15.5) % Plt Count 247 (150-450) k/uL MPV 8.9 Neutrophils % 86 % Lymphocytes % 8 % Monocytes % 5 % Eosinophils % 0 % Basophils % 0 % Neutrophils # 12.9 H (1.3-7.7) k/uL Lymphocytes # 1.2 (1.0-4.8) k/uL Monocytes # 0.8 (0-1.0) k/uL Eosinophils # 0.0 (0-0.7) k/uL Basophils # 0.0 (0-0.2) k/uL Hypochromasia Marked Anisocytosis Slight Microcytosis Moderate PT 15.9 H (9.0-12.0) sec INR 1.6 H (<1.2) APTT 28.0 (22.0-30.0) sec Sodium (137-145) mmol/L Potassium (3.5-5.1) mmol/L Chloride (98-107) mmol/L Carbon Dioxide (22-30) mmol/L Anion Gap mmol/L BUN (9-20) mg/dL Creatinine (0.66-1.25) mg/dL Est GFR (CKD-EPI)AfAm (>60 ml/min/1.73 sqM) Est GFR (CKD-EPI)NonAf (>60 ml/min/1.73 sqM) Glucose (74-99) mg/dL POC Glucose (mg/dL) (70-110) mg/dL POC Glu Machine Assistant ID Lactic Ac Sepsis Rflx Plasma Lactic Acid Adrian (0.7-2.0) mmol/L Calcium (8.4-10.2) mg/dL Magnesium (1.6-2.3) mg/dL Total Bilirubin (0.2-1.3) mg/dL AST (17-59) U/L ALT (4-49) U/L Alkaline Phosphatase (38-126) U/L Troponin I (0.000-0.034) ng/mL Total Protein (6.3-8.2) g/dL Albumin (3.5-5.0) g/dL Urine Color Yellow Urine Appearance Clear (Clear) Urine pH 6.0 (5.0-8.0) Ur Specific [place] 1.027 (1.001-1.035) Urine Protein 1+ H (Negative) Urine Glucose (UA) Negative (Negative) Urine Ketones Negative (Negative) Urine Blood Negative (Negative) Urine Nitrite Negative (Negative) Urine Bilirubin Negative (Negative) Urine Urobilinogen <2.0 (<2.0) mg/dL Ur Leukocyte Esterase Negative (Negative) Urine RBC 1 (0-5) /hpf Urine WBC 4 (0-5) /hpf Hyaline Casts 6 H (0-2) /lpf Urine Mucus Few H (None) /hpf Influenza Type A (PCR) (Not Detectd) Influenza Type B (PCR) (Not Detectd) RSV (PCR) (Not Detectd) SARS-CoV-2 (PCR) (Not Detectd) 01/26/23 01/26/23 01/26/23 Range/Units 05:28 05:28 05:28 WBC (3.8-10.6) k/uL RBC (4.30-5.90) m/uL Hgb (13.0-17.5) gm/dL Hct (39.0-53.0) % MCV (80.0-100.0) fL MCH (25.0-35.0) pg MCHC (31.0-37.0) g/dL RDW (11.5-15.5) % Plt Count (150-450) k/uL MPV Neutrophils % % Lymphocytes % % Monocytes % % Eosinophils % % Basophils % % Neutrophils # (1.3-7.7) k/uL Lymphocytes # (1.0-4.8) k/uL Monocytes # (0-1.0) k/uL Eosinophils # (0-0.7) k/uL Basophils # (0-0.2) k/uL Hypochromasia Anisocytosis Microcytosis PT (9.0-12.0) sec INR (<1.2) APTT (22.0-30.0) sec Sodium 140 (137-145) mmol/L Potassium 4.9 (3.5-5.1) mmol/L Chloride 107 (98-107) mmol/L Carbon Dioxide 14 L (22-30) mmol/L Anion Gap 19 mmol/L BUN 37 H (9-20) mg/dL Creatinine 2.04 H (0.66-1.25) mg/dL Est GFR (CKD-EPI)AfAm 38 (>60 ml/min/1.73 sqM) Est GFR (CKD-EPI)NonAf 33 (>60 ml/min/1.73 sqM) Glucose 156 H (74-99) mg/dL POC Glucose (mg/dL) (70-110) mg/dL POC Glu Machine Assistant ID Lactic Ac Sepsis Rflx Plasma Lactic Acid Adrian 9.6 H* (0.7-2.0) mmol/L Calcium 8.6 (8.4-10.2) mg/dL Magnesium 2.1 (1.6-2.3) mg/dL Total Bilirubin 0.9 (0.2-1.3) mg/dL AST 28 (17-59) U/L ALT 33 (4-49) U/L Alkaline Phosphatase 58 (38-126) U/L Troponin I <0.012 (0.000-0.034) ng/mL Total Protein 6.8 (6.3-8.2) g/dL Albumin 3.7 (3.5-5.0) g/dL Urine Color Urine Appearance (Clear) Urine pH (5.0-8.0) Ur Specific [place] (1.001-1.035) Urine Protein (Negative) Urine Glucose (UA) (Negative) Urine Ketones (Negative) Urine Blood (Negative) Urine Nitrite (Negative) Urine Bilirubin (Negative) Urine Urobilinogen (<2.0) mg/dL Ur Leukocyte Esterase (Negative) Urine RBC (0-5) /hpf Urine WBC (0-5) /hpf Hyaline Casts (0-2) /lpf Urine Mucus (None) /hpf Influenza Type A (PCR) (Not Detectd) Influenza Type B (PCR) (Not Detectd) RSV (PCR) (Not Detectd) SARS-CoV-2 (PCR) (Not Detectd) 01/26/23 01/26/23 01/26/23 Range/Units 05:28 05:49 06:13 WBC (3.8-10.6) k/uL RBC (4.30-5.90) m/uL Hgb (13.0-17.5) gm/dL Hct (39.0-53.0) % MCV (80.0-100.0) fL MCH (25.0-35.0) pg MCHC (31.0-37.0) g/dL RDW (11.5-15.5) % Plt Count (150-450) k/uL MPV Neutrophils % % Lymphocytes % % Monocytes % % Eosinophils % % Basophils % % Neutrophils # (1.3-7.7) k/uL Lymphocytes # (1.0-4.8) k/uL Monocytes # (0-1.0) k/uL Eosinophils # (0-0.7) k/uL Basophils # (0-0.2) k/uL Hypochromasia Anisocytosis Microcytosis PT (9.0-12.0) sec INR (<1.2) APTT (22.0-30.0) sec Sodium (137-145) mmol/L Potassium (3.5-5.1) mmol/L Chloride (98-107) mmol/L Carbon Dioxide (22-30) mmol/L Anion Gap mmol/L BUN (9-20) mg/dL Creatinine (0.66-1.25) mg/dL Est GFR (CKD-EPI)AfAm (>60 ml/min/1.73 sqM) Est GFR (CKD-EPI)NonAf (>60 ml/min/1.73 sqM) Glucose (74-99) mg/dL POC Glucose (mg/dL) 179 H (70-110) mg/dL POC Glu Machine Assistant ID Miguel, Jessica Lactic Ac Sepsis Rflx Y Plasma Lactic Acid Adrian (0.7-2.0) mmol/L Calcium (8.4-10.2) mg/dL Magnesium (1.6-2.3) mg/dL Total Bilirubin (0.2-1.3) mg/dL AST (17-59) U/L ALT (4-49) U/L Alkaline Phosphatase (38-126) U/L Troponin I (0.000-0.034) ng/mL Total Protein (6.3-8.2) g/dL Albumin (3.5-5.0) g/dL Urine Color Urine Appearance (Clear) Urine pH (5.0-8.0) Ur Specific [place] (1.001-1.035) Urine Protein (Negative) Urine Glucose (UA) (Negative) Urine Ketones (Negative) Urine Blood (Negative) Urine Nitrite (Negative) Urine Bilirubin (Negative) Urine Urobilinogen (<2.0) mg/dL Ur Leukocyte Esterase (Negative) Urine RBC (0-5) /hpf Urine WBC (0-5) /hpf Hyaline Casts (0-2) /lpf Urine Mucus (None) /hpf Influenza Type A (PCR) Not Detected (Not Detectd) Influenza Type B (PCR) Not Detected (Not Detectd) RSV (PCR) Not Detected (Not Detectd) SARS-CoV-2 (PCR) Not Detected (Not Detectd) Critical Care Time Critical Care Time: Yes Total Critical Care Time: 35 <Carlito Xiao - Last Filed: 01/26/23 08:43> Disposition <Omid Mckeon - Last Filed: 01/26/23 07:05> Is patient prescribed a controlled substance at d/c from ED?: No Time of Disposition: 08:43 <Carlito Xiao - Last Filed: 01/26/23 08:43> Clinical Impression: Bowel obstruction, Ischemic bowel disease, Sepsis Disposition: ADMITTED IP TO THIS HOSP Condition: Serious Referrals: Dalila Dempsey DO [Primary Care Provider] - 1-2 days
[2023-01-26] MEDS ORDERED: PIPERACILLIN-TAZOBACTAM 3.375 GM in SODIUM CHLORIDE 0.9% 100 ML IVPB STA (05:29)
[2023-01-26 05:50] LABS: Glucose,Whole Blood 179 mg/dL (70-110)
[2023-01-26 06:12] LABS: INR 1.6 (<1.2); Prothrombin Time 15.9 sec (9.0-12.0)
[2023-01-26 06:13] LABS: AST 28 U/L (17-59); African American GFR (CKD) 38 (>60 ml/min/1.73 sqM); Albumin 3.7 g/dL (3.5-5.0); Alkaline Phosphatase 58 U/L (38-126); Anion Gap 19 mmol/L; Blood Urea Nitrogen 37 mg/dL (9-20); Calcium 8.6 mg/dL (8.4-10.2); Carbon Dioxide 14 mmol/L (22-30); Chloride 107 mmol/L (98-107); Glucose 156 mg/dL (74-99); Magnesium 2.1 mg/dL (1.6-2.3); Non-African American GFR(CKD) 33 (>60 ml/min/1.73 sqM); Potassium 4.9 mmol/L (3.5-5.1); Sodium 140 mmol/L (137-145); Total Bilirubin 0.9 mg/dL (0.2-1.3); Total Protein 6.8 g/dL (6.3-8.2)
[2023-01-26] MEDS ORDERED: SODIUM CHLORIDE 0.9% IV STA (06:15)
[2023-01-26 06:20] LABS: ALT 33 U/L (4-49)
[2023-01-26 06:23] LABS: Appearance,Urine Clear (Clear); Bilirubin,Urine Negative (Negative); Blood,Urine Negative (Negative); Color,Urine Yellow; Glucose,Urine (UA) Negative (Negative); Hyaline Casts,Urine 6 /lpf (0-2); Ketones,Urine Negative (Negative); Leukocyte Esterase,Urine Negative (Negative); Mucus,Urine Few /hpf; Nitrite,Urine Negative (Negative); Protein,Urine 1+ (Negative); RBC,Urine 1 /hpf (0-5); Specific Gravity,Urine 1.027 (1.001-1.035); Urobilinogen,Urine <2.0 mg/dL (<2.0); WBC,Urine 4 /hpf (0-5)
[2023-01-26 06:32] LABS: Anisocytosis Slight; Basophils % (A) 0 %; Eosinophils % (A) 0 %; HCT 29.9 % (39.0-53.0); HGB 8.7 gm/dL (13.0-17.5); Hypochromasia Marked; Lymphocytes # (A) 1.2 k/uL (1.0-4.8); Lymphocytes % (A) 8 %; MCH 21.2 pg (25.0-35.0); MCV 73.3 fL (80.0-100.0); Mean Platelet Volume 8.9; Microcytosis Moderate; Monocytes # (A) 0.8 k/uL (0-1.0); Monocytes % (A) 5 %; Neutrophils # (A) 12.9 k/uL (1.3-7.7); Neutrophils % (A) 86 %; Platelet Count 247 k/uL (150-450); RBC 4.08 m/uL (4.30-5.90); RDW 16.2 % (11.5-15.5)
--- NOTE | 2023-01-26 07:21 | XR ---
EXAMINATION TYPE: XR chest 1V portable DATE OF EXAM: 01/26/2023 COMPARISON: 04/11/2017 INDICATION: Syncope TECHNIQUE: Single frontal view of the chest is obtained. FINDINGS: The heart size is normal. The pulmonary vasculature is normal. The lungs are clear. IMPRESSION: 1. No acute pulmonary process.
[2023-01-26] MEDS ORDERED: fentaNYL (PF) 50 MCG/ML 2 ML AMP IVP STA (07:32)
--- NOTE | 2023-01-26 08:14 | CT ---
EXAMINATION TYPE: CT abdomen pelvis w con DATE OF EXAM: 01/26/2023 COMPARISON: 04/03/2021 INDICATION: Elevated lactic acid, hypotension, diabetic DLP: 704.2 mGycm, Automated exposure control for dose reduction was used. CONTRAST: 100 mL of Isovue 300. Study performed without Oral Contrast TECHNIQUE: Axial images were obtained from above the diaphragm to the pubic rami in the axial plane a t 5 mm thick sections. Reconstructed images are reviewed on the computer in the coronal plane. FINDINGS: Limited CT sections are obtained the lung bases. The lung bases are clear. CT ABDOMEN: Ascites is present. Liver: Normal Spleen: Normal Pancreas: Normal Adrenal glands: The adrenal glands are normal. Gallbladder: Gallstones present. Kidneys: No masses are evident. No hydronephrosis is present. No cysts are present. Delayed images were obtained through the kidneys, which remain unremarkable. Aorta: Vascular calcification is within the aorta. Inferior vena cava: Normal. CT PELVIS: There are very prominent small bowel loops containing fluid with multiple small air-fluid levels. The se extend throughout the abdomen. Fecal debris is at the rectum. The descending colon is decompressed decompressed hepatic flexure is evident. The ascending colon contains a small amount of fecal debris is small amount of fecal debris in the transverse colon. The zone of transition not identified, dil atation appears to involve all small bowel loops. No wall thickening or wall enhancement is evident. Some contrast within the proximal small bowel wall is present without enhancement within the mid and distal small bowel can be suggestive for acute ischemic change. Pneumatosis is not identified. Appendix: Not identified. No dilated tubular structure is identified. Urinary bladder: Decompressed with Pedroza catheter Genitourinary structures: Prostate is normal Osseous structures: No suspicious lytic or sclerotic lesions. IMPRESSION: 1. Findings suggestive for small bowel ischemia and/or small bowel obstruction. Results called to [facility] emergency room by Dr. Cisneros by telephone [id number] hours 01/26/2023 grade 2. Ascites 3. Cholelithiasis
[2023-01-26] MEDS ORDERED: SODIUM CHLORIDE 0.9% 1,000 ML IV SCH (08:15)
[2023-01-26] MEDS ORDERED: NALOXONE 0.4 MG/ML 1 ML VIAL IV PRN (08:37)
--- NOTE | 2023-01-26 08:52 | XR ---
EXAMINATION TYPE: XR abdomen 1V DATE OF EXAM: 01/26/2023 COMPARISON: 06/06/2020 INDICATION: Small bowel obstruction hypotension TECHNIQUE: Single view abdomen frontal projection over the upper abdomen FINDINGS: Nonspecific bowel gas is present appears within the stomach. There is a dilated small bowel loop in t he left upper quadrant. There is placement of the nasogastric tube with the tip within the proximal left upper quadrant. The nasogastric tube could be advanced proximally 6 cm for better seating. IMPRESSION 1. Nasogastric tube tip within the proximal left upper quadrant, this could be advanced approximately 6 cm for more typical positioning.
[2023-01-26] MEDS ORDERED: SODIUM CHLORIDE 0.9% 1,000 ML IV ONE ×3 (09:04→21:55)
[2023-01-26] MEDS: DEXTROSE 5% IN WATER 1,000 ML with SODIUM BICARB (1 MEQ/ML) 150 ML IV SCH (09:39)
[2023-01-26] MEDS: SODIUM CHLORIDE 0.9% 1,000 ML IV SCH (09:48)
[2023-01-26] MEDS ORDERED: ACETAMINOPHEN TAB 325 MG TAB PO PRN (09:55)
[2023-01-26] MEDS ORDERED: MELATONIN 3 MG TABLET PO PRN (09:55)
[2023-01-26] MEDS ORDERED: HYDROcodone/APAP 5-325MG 1 EACH TAB PO PRN (09:55)
[2023-01-26] MEDS ORDERED: ONDANSETRON 4 MG/2 ML VIAL IVP PRN (09:55)
[2023-01-26] MEDS ORDERED: DEXTROSE 50% SYRINGE 50 ML IVP PRN ×2 (10:00)
--- NOTE | 2023-01-26 10:02 | P.HPIM ---
History of Present Illness H&P Date: 01/26/23 Patient is a 67 -year-old male with history of high blood pressure, atrial fibrillation, diabetes mellitus type 2, obstructive uropathy, and long-standing ventral hernia who presented to the ER from his senior care due to syncopal episode. In the ER he underwent extensive evaluation. On arrival was vital signs were remarkable for blood pressure 67/33 and a pulse of 60. Laboratory analysis was reviewed including a CBC, coagulation studies, CMP, liver function, lactic acid, and troponin which were remarkable for white blood cell count 15, hemoglobin 8.7, hematocrit 29.9, INR 1.6, carbon dioxide 14, anion gap 19, , lactic acid 9.6. Influenza A/B/RSV/COVID-[address] abdomen and pelvis completed which showed small bowel ischemia versus obstruction, ascites, cholelithiasis. In the ER he was given 2 L normal saline. He remained hypotensive and was started on norepinephrine and Zosyn. Arrangements were made for admission to the ICU. Patient seen and examined at bedside. He reports that he has been having abdominal pain for approximately the last 3 months that is increased over the last 3 days. He does report some shortness of breath. He has chronic issues with urination. He denies any nausea or vomiting. His last bowel movement was approximately 3 days ago he states this is normal. He has been having some chills at night but no noted fevers. Vital signs reviewed General: nontoxic, no distress, appears at stated age Derm: warm, dry Eyes: EOMI, no lid lag, anicteric sclera, pupils equal round reactive to light ENT: Nose and ears atraumatic, no thrush, no pharyngeal erythema Cardiovascular: S1S2 reg, no murmur, positive posterior tibial pulse bilateral, no edema, capillary refill less than 2 seconds Lungs: clear to auscultation bilateral, no rhonchi, no rales, no wheeze, no accessory muscle use Abdominal: soft, nontender to palpation, no guarding, no appreciable organomegaly, normal bowel sounds Ext: no gross muscle atrophy, muscle strength 5 out of 5 in all 4 extremities, no contractures Neuro: CN II-XII grossly intact, light touch intact all 4 extremities, finger to nose within normal limits, Psych: Alert, oriented, appropriate affect Assessment/Plan: Small bowel obstruction, probable ischemic colitis -history of recurrent hernia repairs including small bowel injection with partial bowel resection in 2017. Lacitic acidosis Shock - admit to ICU - Zosyn 3.375 g IVPB q 8 hours - NS at 130 cc/hr, s/p 2L NS - Follow lactic acid - NGT to LIS - hold Lopressor - norco for pain, avoid morhine at this time due to hypotension, could consider fentanyl if needed as more BP neutral Acute kidney Injury -Likely secondary to hypoperfusion -Avoid nephrotoxic agents -IV fluids -Repeat creatinine in a.m. -Maintain map greater than 65 Anemia -Undetermined etiology -Follow CBC -Check iron studies Atrial fibrillation with controlled ventricular rate -Metoprolol on hold secondary to hypotension -Hold Xarelto in case surgical intervention is required Diabetes mellitus type 2 - not on chronic medications - SSI, follow BS Chronic: Hypertension Cirrhosis Constipation Gastric ulcer Encephalopathy Abdominal hernia Imaging: As per HPI Data Review: As per HPI The patient is admitted with an anticipated greater than 2 midnight stay for evaluation of Ischemic colitis vs SBO with lactic acidosis. Surrogate decision-maker: Brother- legal guardian CODE STATUS: Full DVT prophylaxis: SCDs Discussed with: Dr. Garcia, Dr. Salguero, ER nursing Anticipated discharge date: Pending Clinical Course Anticipated discharge place: Pending Clinical Course This dictation was prepared using [employer] voice recognition software. Though every attempt is made to correct errors during dictation some may still exist. 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 LEGAL GUARDIAN BROTHER CINDY MADERA # [phone]. , HX OF BRAIN DAMAGE R/T DRUG ABUSE, abdominal hernia,rt hemiparesis History of Any Multi-Drug Resistant Organisms: ESBL, MRSA Date of last positivie culture/infection: 04/02/17 MDRO Source:: sputum esbl, LT FOOT WOUND Past Surgical History: Adenoidectomy, Bowel Resection, Hernia Repair, Tonsillectomy Additional Past Surgical History / Comment(s): wound debridement to L FOOT, LYSIS OF ADHESIONS.PEG INSERTION & Removal, EGD, INCISIONAL HERNIA 11/2018 AT [facility]. SBO WITH PARTIAL BOWEL RESECTION (2017) Past Anesthesia/Blood Transfusion Reactions: No Reported Reaction Additional Past Anesthesia/Blood Transfusion Reaction / Comment(s): BROTHER- CINDY MADERA STATES NO PROBLEMS WITH ANESTHESIA AND NO FAMILY HX OF PROBLEMS WITH ANESTHESIA. Past Psychological History: Anxiety, Depression Smoking Status: Never smoker - Past Family History Father Family Medical History: Dementia Additional Family Medical History / Comment(s): Father of alzheimer dementia at the age of 87yrs. Mother Family Medical History: Cancer Additional Family Medical History / Comment(s): Mother had breast cancer and had a cancerous tumor removed from outside her bladder. She at the age of 87yrs from lung cancer. Medications and Allergies Home Medications Medication Instructions Recorded Confirmed Type Levothyroxine Sodium [Synthroid] 50 mcg PO DAILY 07/08/14 01/26/23 History Artificial Tears-Hypromellose 1 drop RIGHT EYE BID@0500,2200 02/15/17 01/26/23 History [Artificial Tear Drops] Melatonin 3 mg PO HS 10/06/17 01/26/23 History Rivaroxaban [Xarelto] 20 mg PO DAILY@1600 10/06/17 01/26/23 History diazePAM 2 mg PO QID@07,11,16,20 10/06/17 01/26/23 History polyethylene glycoL 3350 [Miralax] 17 gm PO DAILY 11/13/18 01/26/23 History Tamsulosin [Flomax] 0.4 mg PO DAILY #5 cap 11/17/18 01/26/23 Rx Escitalopram [Lexapro] 5 mg PO DAILY 04/25/19 01/26/23 History Memantine [Namenda] 10 mg PO BID 11/28/20 01/26/23 History Omeprazole 20 mg PO HS 11/28/20 01/26/23 History Acetaminophen [Tylenol 8 Hour] 650 mg PO Q6H PRN 01/26/23 01/26/23 History Docusate [Colace] 100 mg PO BID 01/26/23 01/26/23 History Magnesium Hydroxide [Milk of 2,400 mg PO DAILY PRN 01/26/23 01/26/23 History Magnesia] Metoprolol Tartrate [Lopressor] 12.5 mg PO BID 01/26/23 01/26/23 History Sennosides [Senokot] 17.2 mg PO DAILY 01/26/23 01/26/23 History Sodium Chloride [[place]] 2 spray EA NOSTRIL Q3H PRN 01/26/23 01/26/23 History Transderm Scop 1.5mg 1 patch TRANSDERM Q72H 01/26/23 01/26/23 History polyethylene glycoL 3350 [Miralax] 17 gm PO DAILY PRN 01/26/23 01/26/23 History Allergies Allergy/AdvReac Type Severity Reaction Status Date / Time No Known Allergies Allergy Verified 01/26/23 07:59 Physical Exam Osteopathic Statement: *. No significant issues noted on an osteopathic structural exam other than those noted in the History and Physical/Consult. Vitals: Vital Signs Temp Pulse Resp BP Pulse Ox 01/26/23 09:50 97.6 F 80 24 83/67 98 01/26/23 09:45 97.6 F 82 26 H 88/63 87 L 01/26/23 09:35 82 22 82/57 89 L 01/26/23 09:31 86 24 80/50 90 L 01/26/23 09:20 85 24 101/63 93 L 01/26/23 09:00 87 22 72/50 90 L 01/26/23 08:30 97.7 F 98 22 85/46 86 L 01/26/23 08:00 80 27 H 81/59 87 L 01/26/23 07:30 97.6 F 85 24 67/44 90 L 01/26/23 07:15 97.6 F 76 20 67/44 84 L 01/26/23 06:41 78 24 93/57 92 L 01/26/23 06:23 77 24 74/45 85 L 01/26/23 05:31 75/51 01/26/23 05:25 84/50 01/26/23 04:49 97.5 F L 60 20 67/33 Intake and Output 01/25/23 01/26/23 01/26/23 22:59 06:59 14:59 Intake Total 2.150 9.048 Balance 2.150 9.048 Intake: Intake, IV Titration 2.150 9.048 Amount Norepinephrine 32 mg In 2.150 9.048 Sodium Chloride 0.9% 218 ml @ 0.03 MCG/KG/MIN 0. 836 mls/hr IV .Q24H ONE Rx#:[id number] Other: Weight 59.421 kg Results CBC & Chem 7: 01/26/23 05:28 01/26/23 05:28 Labs: Abnormal Lab Results - Last 24 Hours (Table) 01/26/23 01/26/23 01/26/23 Range/Units 05:28 05:28 05:28 WBC 15.0 H (3.8-10.6) k/uL RBC 4.08 L (4.30-5.90) m/uL Hgb 8.7 L (13.0-17.5) gm/dL Hct 29.9 L (39.0-53.0) % MCV 73.3 L (80.0-100.0) fL MCH 21.2 L (25.0-35.0) pg MCHC 29.0 L (31.0-37.0) g/dL RDW 16.2 H (11.5-15.5) % Neutrophils # 12.9 H (1.3-7.7) k/uL PT 15.9 H (9.0-12.0) sec INR 1.6 H (<1.2) Carbon Dioxide (22-30) mmol/L BUN (9-20) mg/dL Creatinine (0.66-1.25) mg/dL Glucose (74-99) mg/dL POC Glucose (mg/dL) (70-110) mg/dL Plasma Lactic Acid Adrian (0.7-2.0) mmol/L Urine Protein 1+ H (Negative) Hyaline Casts 6 H (0-2) /lpf Urine Mucus Few H (None) /hpf 01/26/23 01/26/23 01/26/23 Range/Units 05:28 05:28 05:49 WBC (3.8-10.6) k/uL RBC (4.30-5.90) m/uL Hgb (13.0-17.5) gm/dL Hct (39.0-53.0) % MCV (80.0-100.0) fL MCH (25.0-35.0) pg MCHC (31.0-37.0) g/dL RDW (11.5-15.5) % Neutrophils # (1.3-7.7) k/uL PT (9.0-12.0) sec INR (<1.2) Carbon Dioxide 14 L (22-30) mmol/L BUN 37 H (9-20) mg/dL Creatinine 2.04 H (0.66-1.25) mg/dL Glucose 156 H (74-99) mg/dL POC Glucose (mg/dL) 179 H (70-110) mg/dL Plasma Lactic Acid Adrian 9.6 H* (0.7-2.0) mmol/L Urine Protein (Negative) Hyaline Casts (0-2) /lpf Urine Mucus (None) /hpf
[2023-01-26 11:01] LABS: Glucose,Whole Blood 103 mg/dL (70-110)
[2023-01-26] MEDS: diazePAM 2 MG TAB PO SCH ×2 (11:45→16:08)
[2023-01-26] MEDS: INSULIN ASPART (NovoLOG) 100 UNIT/ML VIAL SQ SCH ×3 (11:45→20:19)
[2023-01-26] MEDS ORDERED: FUROSEMIDE 10 MG/ML 10 ML VIAL IV STA (11:53)
--- NOTE | 2023-01-26 12:45 | P.GSCN ---
History of Present Illness Consult date: 01/26/23 Reason for Consult: Abdominal pain History of present illness: 67-year-old male comes from [facility]. Patient with history of anoxic injury from drug abuse many years ago. Patient requires assisted care. Patient apparently had a syncopal episode at [facility]. Applications states he has started having pain in the last day or so. He does state that the pain has been going on for a few months however. He has a history of previous small bowel obstruction requiring resection reportedly in 2017. In 2019 patient had a laparoscopic robot-assisted repair of a large incisional hernia. Patient still has a defect in the abdominal wall on recent CAT scan and it appears that the mesh is bridging the fascial defect in that area. Patient also has history of previous PEG tube with fistula and subsequent partial gastrectomy. Patient pr esents to the ER quite ill. Patient with evidence of septic shock on arrival. Patient had hypotension, anuria, abdominal distention, and diffuse abdominal pain and tenderness. CAT scan performed showing diffuse small bowel dilation. No significant colonic contents. Findings for possible ischemia described by radiology. Patient has significant lactic acidosis over 9. Repeat after hydration in the 6 range. He has received over 3 L of fluid. He is on Xarelto at the snf and had his last dose at 4 PM yesterday. Patient is on Xarelto for atrial fibrillation. The patient's brother Cindy is the legal guardian however he had hip surgery this morning. His sister is present at the bedside and his other brother Rudi was on the phone during my evaluation. Review of Systems The patient denies any acute changes in vision or hearing, no dysphagia or odynophagia, no chest pain or shortness of breath, no dysuria or hematuria, no headache, no runny nose, no rectal bleeding or melena, no unexplained weight loss Past Medical History Past Medical History: Atrial Fibrillation, Coronary Artery Disease (CAD), Dementia, Diabetes Mellitus, Hypertension, Liver Disease, Memory Impairment, Pulmonary Embolus (PE), Seizure Disorder, Skin Disorder Additional Past Medical History / Comment(s): PT SCRATCHES AND HAS SCRATCHES ON LEGS., DEMENTIA, HEPATITIS C-TREATED, UNKNOWN LAST SEIZURE., DIET CONTROLLED DIABETES, DIVERTICULOSIS, RIGHT HEMIPARESIS,CONSTIPATION,ENCEPHALOPATHY,GASTRIC ULCER, HX OF SBO WITH PARTIAL BOWEL RESECTION.,NONAMBULATORY,TRANSFERS WITH [employer] P[employer] ASST. LEGAL GUARDIAN BROTHER CINDY MADERA # [phone]. , HX OF BRAIN DAMAGE R/T DRUG ABUSE, abdominal hernia,rt hemiparesis History of Any Multi-Drug Resistant Organisms: ESBL, MRSA Year Discovered:: 04/02/17 MDRO Source:: sputum esbl, LT FOOT WOUND Past Surgical History: Adenoidectomy, Bowel Resection, Hernia Repair, Tonsillectomy Additional Past Surgical History / Comment(s): wound debridement to L FOOT, LYSIS OF ADHESIONS.PEG INSERTION & Removal, EGD, INCISIONAL HERNIA 11/2018 AT [facility]. SBO WITH PARTIAL BOWEL RESECTION (2017) Past Anesthesia/Blood Transfusion Reactions: No Reported Reaction Additional Past Anesthesia/Blood Transfusion Reaction / Comm: BROTHER- CINDY MADERA STATES NO PROBLEMS WITH ANESTHESIA AND NO FAMILY HX OF PROBLEMS WITH ANESTHESIA. Past Psychological History: Anxiety, Depression Additional Psychological History / Comment(s): Pt resides at [facility] since 2006. Smoking Status: Never smoker Past Alcohol Use History: None Reported Additional Past Alcohol Use History / Comment(s): Pt is a recovering alcoholic. Past Drug Use History: None Reported Additional Drug Use History / Comment(s): HX OF BRAIN DAMAGE R/T DRUG ABUSE - Past Family History Father Family Medical History: Dementia Additional Family Medical History / Comment(s): Father of alzheimer dementia at the age of 87yrs. Mother Family Medical History: Cancer Additional Family Medical History / Comment(s): Mother had breast cancer and had a cancerous tumor removed from outside her bladder. She at the age of 87yrs from lung cancer. Medications and Allergies Home Medications Medication Instructions Recorded Confirmed Type Levothyroxine Sodium [Synthroid] 50 mcg PO DAILY 07/08/14 01/26/23 History Artificial Tears-Hypromellose 1 drop RIGHT EYE BID@0500,2200 02/15/17 01/26/23 History [Artificial Tear Drops] Melatonin 3 mg PO HS 10/06/17 01/26/23 History Rivaroxaban [Xarelto] 20 mg PO DAILY@1600 10/06/17 01/26/23 History diazePAM 2 mg PO QID@07,11,16,20 10/06/17 01/26/23 History polyethylene glycoL 3350 [Miralax] 17 gm PO DAILY 11/13/18 01/26/23 History Tamsulosin [Flomax] 0.4 mg PO DAILY #5 cap 11/17/18 01/26/23 Rx Escitalopram [Lexapro] 5 mg PO DAILY 04/25/19 01/26/23 History Memantine [Namenda] 10 mg PO BID 11/28/20 01/26/23 History Omeprazole 20 mg PO HS 11/28/20 01/26/23 History Acetaminophen [Tylenol 8 Hour] 650 mg PO Q6H PRN 01/26/23 01/26/23 History Docusate [Colace] 100 mg PO BID 01/26/23 01/26/23 History Magnesium Hydroxide [Milk of 2,400 mg PO DAILY PRN 01/26/23 01/26/23 History Magnesia] Metoprolol Tartrate [Lopressor] 12.5 mg PO BID 01/26/23 01/26/23 History Sennosides [Senokot] 17.2 mg PO DAILY 01/26/23 01/26/23 History Sodium Chloride [[place]] 2 spray EA NOSTRIL Q3H PRN 01/26/23 01/26/23 History Transderm Scop 1.5mg 1 patch TRANSDERM Q72H 01/26/23 01/26/23 History polyethylene glycoL 3350 [Miralax] 17 gm PO DAILY PRN 01/26/23 01/26/23 History Allergies Allergy/AdvReac Type Severity Reaction Status Date / Time No Known Allergies Allergy Verified 01/26/23 07:59 Surgical - Exam Vital Signs Temp Pulse Resp BP 97.5 F L 60 20 67/33 01/26/23 04:49 01/26/23 04:49 01/26/23 04:49 01/26/23 04:49 Physical exam: General: Well-developed, somewhat malnourished HEENT: Normocephalic, sclerae nonicteric Abdomen: Distended, tympanic, diffuse tenderness without peritoneal signs Extremities: No edema, contractures noted Neuro: Alert and anxious Results - Labs 01/26/23 05:28 01/26/23 05:28 Abnormal Lab Results - Last 24 Hours (Table) 01/26/23 01/26/23 01/26/23 Range/Units 05:28 05:28 05:28 WBC 15.0 H (3.8-10.6) k/uL RBC 4.08 L (4.30-5.90) m/uL Hgb 8.7 L (13.0-17.5) gm/dL Hct 29.9 L (39.0-53.0) % MCV 73.3 L (80.0-100.0) fL MCH 21.2 L (25.0-35.0) pg MCHC 29.0 L (31.0-37.0) g/dL RDW 16.2 H (11.5-15.5) % Neutrophils # 12.9 H (1.3-7.7) k/uL PT 15.9 H (9.0-12.0) sec INR 1.6 H (<1.2) Carbon Dioxide (22-30) mmol/L BUN (9-20) mg/dL Creatinine (0.66-1.25) mg/dL Glucose (74-99) mg/dL POC Glucose (mg/dL) (70-110) mg/dL Plasma Lactic Acid Adrian (0.7-2.0) mmol/L Urine Protein 1+ H (Negative) Hyaline Casts 6 H (0-2) /lpf Urine Mucus Few H (None) /hpf 01/26/23 01/26/23 01/26/23 Range/Units 05:28 05:28 05:49 WBC (3.8-10.6) k/uL RBC (4.30-5.90) m/uL Hgb (13.0-17.5) gm/dL Hct (39.0-53.0) % MCV (80.0-100.0) fL MCH (25.0-35.0) pg MCHC (31.0-37.0) g/dL RDW (11.5-15.5) % Neutrophils # (1.3-7.7) k/uL PT (9.0-12.0) sec INR (<1.2) Carbon Dioxide 14 L (22-30) mmol/L BUN 37 H (9-20) mg/dL Creatinine 2.04 H (0.66-1.25) mg/dL Glucose 156 H (74-99) mg/dL POC Glucose (mg/dL) 179 H (70-110) mg/dL Plasma Lactic Acid Adrian 9.6 H* (0.7-2.0) mmol/L Urine Protein (Negative) Hyaline Casts (0-2) /lpf Urine Mucus (None) /hpf 01/26/23 Range/Units 10:15 WBC (3.8-10.6) k/uL RBC (4.30-5.90) m/uL Hgb (13.0-17.5) gm/dL Hct (39.0-53.0) % MCV (80.0-100.0) fL MCH (25.0-35.0) pg MCHC (31.0-37.0) g/dL RDW (11.5-15.5) % Neutrophils # (1.3-7.7) k/uL PT (9.0-12.0) sec INR (<1.2) Carbon Dioxide (22-30) mmol/L BUN (9-20) mg/dL Creatinine (0.66-1.25) mg/dL Glucose (74-99) mg/dL POC Glucose (mg/dL) (70-110) mg/dL Plasma Lactic Acid Adrian 6.5 H* (0.7-2.0) mmol/L Urine Protein (Negative) Hyaline Casts (0-2) /lpf Urine Mucus (None) /hpf Diabetes panel 01/26/23 Range/Units 05:28 Sodium 140 (137-145) mmol/L Potassium 4.9 (3.5-5.1) mmol/L Chloride 107 (98-107) mmol/L Carbon Dioxide 14 L (22-30) mmol/L BUN 37 H (9-20) mg/dL Creatinine 2.04 H (0.66-1.25) mg/dL Glucose 156 H (74-99) mg/dL Calcium 8.6 (8.4-10.2) mg/dL AST 28 (17-59) U/L ALT 33 (4-49) U/L Alkaline Phosphatase 58 (38-126) U/L Total Protein 6.8 (6.3-8.2) g/dL Albumin 3.7 (3.5-5.0) g/dL Calcium panel 01/26/23 Range/Units 05:28 Calcium 8.6 (8.4-10.2) mg/dL Albumin 3.7 (3.5-5.0) g/dL Pituitary panel 01/26/23 Range/Units 05:28 Sodium 140 (137-145) mmol/L Potassium 4.9 (3.5-5.1) mmol/L Chloride 107 (98-107) mmol/L Carbon Dioxide 14 L (22-30) mmol/L BUN 37 H (9-20) mg/dL Creatinine 2.04 H (0.66-1.25) mg/dL Glucose 156 H (74-99) mg/dL Calcium 8.6 (8.4-10.2) mg/dL Adrenal panel 01/26/23 Range/Units 05:28 Sodium 140 (137-145) mmol/L Potassium 4.9 (3.5-5.1) mmol/L Chloride 107 (98-107) mmol/L Carbon Dioxide 14 L (22-30) mmol/L BUN 37 H (9-20) mg/dL Creatinine 2.04 H (0.66-1.25) mg/dL Glucose 156 H (74-99) mg/dL Calcium 8.6 (8.4-10.2) mg/dL Total Bilirubin 0.9 (0.2-1.3) mg/dL AST 28 (17-59) U/L ALT 33 (4-49) U/L Alkaline Phosphatase 58 (38-126) U/L Total Protein 6.8 (6.3-8.2) g/dL Albumin 3.7 (3.5-5.0) g/dL Assessment and Plan (1) Septic shock Narrative/Plan: 67-year-old male with abdominal pain, distention, presentation with sepsis. Clinical scenario discussed in detail with the patient, his sister, and his brother Rudi by phone. Options of supportive care with antibiotics, fluid resuscitation, gastric decompression, and close observation versus exporter laparotomy discussed. Given the patient's CAT scan findings and the fact that he states he is having more pain now than he did this morning we have decided to proceed with exploration. We'll proceed with exploratory laparotomy, possible bowel resection, possible ostomy. The risks of bleeding, infection, leak, abscess, recurrent hernia, possible need for mesh removal, possible need for bowel resection or ostomy, respiratory failure, progressive sepsis, embolic phenomena, clotting issues, all discussed. Patient and his family understand and wish to proceed. It was discussed that his brother who is the power of disability attorney is only now recovering from his hip surgery this morning because of the anesthesia provided to him he would not be signing the consent in his usual fashion. Instead decision to proceed with emergency surgery was made as a joint decision with the patient myself, the channel process supervisor, his sister present for my evaluation, his brother by phone, and also they plan to discuss further with Cindy who had surgery this morning. Current Visit: Yes Status: Acute Code(s): A41.9 - SEPSIS, UNSPECIFIED ORGANISM; R65.21 - SEVERE SEPSIS WITH SEPTIC SHOCK SNOMED Code(s): 40491015
[2023-01-26] MEDS ORDERED: Kcentra PER PHARMACY 1 EACH MISC MISCELLANE PRN (12:58)
--- NOTE | 2023-01-26 13:14 | P.CNPUL ---
History of Present Illness Consult date: 01/26/23 Requesting physician: Rona Rodriguez Reason for consult: other ( abdominal sepsis and bowel obstruction, possible ischemic bowel) Chief complaint: Abdominal pain History of present illness: This is a 67-year-old white male with history of hypertension, chronic atrial fibrillation, type 2 diabetes, obstructive uropathy, and history of ventral hernia. Patient was brought into the ER because [facility] and upon EMS arrival the patient was noted to be very hypotensive. Indeed in the ER the patient was noted to be hypotensive, he was also noted to have significant lactic acidosis, significant anion gap, leukocytosis, urine was unremarkable, influenza screening are as the screening and COVID-[address] abdomen and pelvis showed findings suggestive of small bowel ischemia and/or small bowel obstruction. Patient was also noted to have ascites and cholelithiasis. I did see the patient in the ER, recommended that we continue Zosyn, patient was already on norepinephrine at 0.15 mcg/kg/h. Patient already received 2 L of fluids and I have ordered a third liter to be given I also recommended a bicarb drip to be started naso gastric tube showed mostly coffee ground material in the cup from gastric suctioning. According to the patient he has been complaining of abdominal pain for 1 week. And his abdomen has been distended for at least one week. Patient is also on a nonrebreather mask at 15 L/m. He has a central line in the right groin placed by the ER physician. Lactic acid was as high as 10, follow-up lactic acid after fluid boluses down to 6.4 I accepted the patient to be admitted to the ICU. Dr. shell already saw the patient and he is planning exploratory laparotomy in the next few hours. Review of Systems Constitutional: Negative HEENT: Negative Pulmonary: Negative Cardiac: Negative GI: As noted in HPI Hematologic: Negative Genitourinary: Negative Musculoskeletal: Negative Skin: Negative Psychiatric: Negative Endocrine: Negative Urologic: Past Medical History Past Medical History: Atrial Fibrillation, Coronary Artery Disease (CAD), Dementia, Diabetes Mellitus, Hypertension, Liver Disease, Memory Impairment, Pulmonary Embolus (PE), Seizure Disorder, Skin Disorder Additional Past Medical History / Comment(s): PT SCRATCHES AND HAS SCRATCHES ON LEGS., DEMENTIA, HEPATITIS C-TREATED, UNKNOWN LAST SEIZURE., DIET CONTROLLED DIABETES, DIVERTICULOSIS, RIGHT HEMIPARESIS,CONSTIPATION,ENCEPHALOPATHY,GASTRIC ULCER, HX OF SBO WITH PARTIAL BOWEL RESECTION.,NONAMBULATORY,TRANSFERS WITH [employer] ASST. LEGAL GUARDIAN BROTHER CINDY MADERA # [phone]. , HX OF BRAIN DAMAGE R/T DRUG ABUSE, abdominal hernia,rt hemiparesis History of Any Multi-Drug Resistant Organisms: ESBL, MRSA Date of last positivie culture/infection: 04/02/17 MDRO Source:: sputum esbl, LT FOOT WOUND Past Surgical History: Adenoidectomy, Bowel Resection, Hernia Repair, Tonsillectomy Additional Past Surgical History / Comment(s): wound debridement to L FOOT, LYSIS OF ADHESIONS.PEG INSERTION & Removal, EGD, INCISIONAL HERNIA 11/2018 AT [facility]. SBO WITH PARTIAL BOWEL RESECTION (2016) Past Anesthesia/Blood Transfusion Reactions: No Reported Reaction Additional Past Anesthesia/Blood Transfusion Reaction / Comment(s): BROTHER- CINDY MADERA STATES NO PROBLEMS WITH ANESTHESIA AND NO FAMILY HX OF PROBLEMS WITH ANESTHESIA. Past Psychological History: Anxiety, Depression Additional Psychological History / Comment(s): Pt resides at [facility] since 2006. Smoking Status: Never smoker Past Alcohol Use History: None Reported Additional Past Alcohol Use History / Comment(s): Pt is a recovering alcoholic. Past Drug Use History: None Reported Additional Drug Use History / Comment(s): HX OF BRAIN DAMAGE R/T DRUG ABUSE - Past Family History Father Family Medical History: Dementia Additional Family Medical History / Comment(s): Father of alzheimer dementia at the age of 87yrs. Mother Family Medical History: Cancer Additional Family Medical History / Comment(s): Mother had breast cancer and had a cancerous tumor removed from outside her bladder. She at the age of 87yrs from lung cancer. Medications and Allergies Home Medications Medication Instructions Recorded Confirmed Type Levothyroxine Sodium [Synthroid] 50 mcg PO DAILY 07/08/14 01/26/23 History Artificial Tears-Hypromellose 1 drop RIGHT EYE BID@0500,2200 02/15/17 01/26/23 History [Artificial Tear Drops] Melatonin 3 mg PO HS 10/06/17 01/26/23 History Rivaroxaban [Xarelto] 20 mg PO DAILY@1600 10/06/17 01/26/23 History diazePAM 2 mg PO QID@07,11,16,20 10/06/17 01/26/23 History polyethylene glycoL 3350 [Miralax] 17 gm PO DAILY 11/13/18 01/26/23 History Tamsulosin [Flomax] 0.4 mg PO DAILY #5 cap 11/17/18 01/26/23 Rx Escitalopram [Lexapro] 5 mg PO DAILY 04/25/19 01/26/23 History Memantine [Namenda] 10 mg PO BID 11/28/20 01/26/23 History Omeprazole 20 mg PO HS 11/28/20 01/26/23 History Acetaminophen [Tylenol 8 Hour] 650 mg PO Q6H PRN 01/26/23 01/26/23 History Docusate [Colace] 100 mg PO BID 01/26/23 01/26/23 History Magnesium Hydroxide [Milk of 2,400 mg PO DAILY PRN 01/26/23 01/26/23 History Magnesia] Metoprolol Tartrate [Lopressor] 12.5 mg PO BID 01/26/23 01/26/23 History Sennosides [Senokot] 17.2 mg PO DAILY 01/26/23 01/26/23 History Sodium Chloride [Mathis Hurricane] 2 spray EA NOSTRIL Q3H PRN 01/26/23 01/26/23 History Transderm Scop 1.5mg 1 patch TRANSDERM Q72H 01/26/23 01/26/23 History polyethylene glycoL 3350 [Miralax] 17 gm PO DAILY PRN 01/26/23 01/26/23 History Allergies Allergy/AdvReac Type Severity Reaction Status Date / Time No Known Allergies Allergy Verified 01/26/23 07:59 Physical Exam Vitals: Vital Signs Temp Pulse Resp BP Pulse Ox FiO2 01/26/23 11:30 93 24 92/41 89 L 01/26/23 11:00 97.5 F L 95 24 73/53 85 L 100 01/26/23 10:30 97.7 F 91 22 95/41 97 01/26/23 10:16 89 22 94/50 96 01/26/23 10:10 88 22 89/46 97 01/26/23 10:00 97.6 F 83 20 97/66 98 01/26/23 09:50 97.6 F 80 24 83/67 98 01/26/23 09:45 97.6 F 82 26 H 88/63 87 L 01/26/23 09:35 82 22 82/57 89 L 01/26/23 09:31 86 24 80/50 90 L 01/26/23 09:20 85 24 101/63 93 L 01/26/23 09:00 87 22 72/50 90 L 01/26/23 08:30 97.7 F 98 22 85/46 86 L 01/26/23 08:00 80 27 H 81/59 87 L 01/26/23 07:30 97.6 F 85 24 67/44 90 L 01/26/23 07:15 97.6 F 76 20 67/44 84 L 01/26/23 06:41 78 24 93/57 92 L 01/26/23 06:23 77 24 74/45 85 L 01/26/23 05:31 75/51 01/26/23 05:25 84/50 01/26/23 04:49 97.5 F L 60 20 67/33 Intake and Output 01/25/23 01/26/23 01/26/23 22:59 06:59 14:59 Intake Total 2.150 149.959 Balance 2.150 149.959 Intake: IV 130 Dextrose 5% in Water 1, 75 000 ml @ 75 mls/hr IV . [id number] KALE with Sodium Bicarb (1 Meq/ml) 150 ml Rx#:[id number] Sodium Chloride 0.9% 1, 55 000 ml @ 55 mls/hr IV . [id number] KALE Rx#:[id number] Intake, IV Titration 2.150 19.959 Amount Norepinephrine 32 mg In 2.150 19.959 Sodium Chloride 0.9% 218 ml @ 0.03 MCG/KG/MIN 0. 836 mls/hr IV .Q24H ONE Rx#:[id number] Other: Weight 59.421 kg Physical Exam: Revealed 67-year-old white male in [id number] distress on nonrebreather mask. Patient is complaining of abdominal pain and discomfort., Patient does not look toxic. Patient does look frail and chronically ill. Head: Atraumatic, normocephalic. Nasogastric tube is intact HEENT:[Neck is supple.] [No neck masses.] [No thyromegaly.] [No JVD.] Patient is noted to have very dry mucous membranes. Chest: Symmetrical chest expansion. [Clear throughout, no crackles, no rhonchi, no wheezes.] Cardiac Exam: [Normal S1 and S2, no S3 gallop, no murmur.] Abdomen: [Distended, tender to palpation, no guarding, no bowel sounds. Surgical scar is noted and a ventral hernia was noted in the mid abdomen Extremities: [No clubbing, no edema, no cyanosis.] Neurological Exam: [No focal neurologic deficit.] Alert and oriented 3. Skin: No rashes. Results - Laboratory Findings CBC and BMP: 01/26/23 05:28 01/26/23 05:28 PT/INR, D-dimer PT 15.9 sec (9.0-12.0) H 01/26/23 05:28 INR 1.6 (<1.2) H 01/26/23 05:28 Abnormal lab findings: Abnormal Labs 01/26/23 01/26/23 01/26/23 05:28 05:28 05:28 WBC 15.0 H RBC 4.08 L Hgb 8.7 L Hct 29.9 L MCV 73.3 L MCH 21.2 L MCHC 29.0 L RDW 16.2 H Neutrophils # 12.9 H PT 15.9 H INR 1.6 H Carbon Dioxide BUN Creatinine Glucose POC Glucose (mg/dL) Plasma Lactic Acid Adrian Urine Protein 1+ H Hyaline Casts 6 H Urine Mucus Few H 01/26/23 01/26/23 01/26/23 05:28 05:28 05:49 WBC RBC Hgb Hct MCV MCH MCHC RDW Neutrophils # PT INR Carbon Dioxide 14 L BUN 37 H Creatinine 2.04 H Glucose 156 H POC Glucose (mg/dL) 179 H Plasma Lactic Acid Adrian 9.6 H* Urine Protein Hyaline Casts Urine Mucus 01/26/23 10:15 WBC RBC Hgb Hct MCV MCH MCHC RDW Neutrophils # PT INR Carbon Dioxide BUN Creatinine Glucose POC Glucose (mg/dL) Plasma Lactic Acid Adrian 6.5 H* Urine Protein Hyaline Casts Urine Mucus - Diagnostic Findings Additional studies: CT of abdomen and pelvis as noted in HPI Assessment and Plan Assessment: Impression: Acute hypoxic respiratory failure secondary to abdominal sepsis and septic shock, chest x-ray showed no evidence of acute pulmonary process Abdominal sepsis and septic shock Small bowel obstruction possible bowel ischemia Acute lactic acidosis secondary to above could also be secondary to bowel ischemia Paroxysmal atrial fibrillation History of benign essential hypertension Ventral hernia Recommendation: Admit patient to the ICU Continue IV fluids, given 3 L of fluid boluses in the ER. Start patient on sodium bicarb drip for his anion gap metabolic acidosis Continue Zosyn empirically Continue nasogastric tube to suction Patient to be seen by surgery and possibly consider exploratory laparotomy Continue oxygen and titrate accordingly Continue norepinephrine/hemodynamic support GI and DVT prophylaxis Overall prognosis is guarded We'll continue to follow, patient is critically Time with Patient: Greater than 30
[2023-01-26] MEDS ORDERED: HUMAN PROTHROMBIN COMPLX 500 UNIT/16 ML VIAL IV ONE (13:30)
[2023-01-26] MEDS ORDERED: EMPTY BAG 1 BAG with HUMAN PROTHROMBIN COMPLX 2,216 UNIT IV ONE (13:30)
[2023-01-26] MEDS: PIPERACILLIN-TAZOBACTAM 3.375 GM in SODIUM CHLORIDE 0.9% 100 ML IVPB SCH ×2 (14:01→23:29)
[2023-01-26] MEDS: VASOPRESSIN 60 UNIT in SODIUM CHLORIDE 0.9% 150 ML IV SCH (16:13)
[2023-01-26] MEDS ORDERED: ETOMIDATE 2 MG/ML 10 ML VIAL ONE (17:02)
[2023-01-26] MEDS ORDERED: ROCURONIUM 10 MG/ML (5 ML VIAL) IV ONE (17:02)
[2023-01-26] MEDS ORDERED: fentaNYL (PF) 50 MCG/ML 2 ML AMP ONE (17:02)
[2023-01-26] MEDS ORDERED: LACTATED RINGERS 1,000 ML IV ONE ×2 (17:02→18:29)
[2023-01-26] MEDS ORDERED: LIDOCAINE 2% INJ 20 MG/ML (2 ML VIAL) ONE (17:02)
[2023-01-26] MEDS ORDERED: SUCCINYLCHOLINE CHLORIDE 200 MG/10 ML VIAL IV ONE (17:02)
[2023-01-26] MEDS ORDERED: propofoL 100 ML IV ONE (18:32)
--- NOTE | 2023-01-26 19:19 | OP ---
OPERATIVE REPORT DATE OF SERVICE : PROCEDURE PERFORMED: Placement of a right brachial arterial line. PREOPERATIVE DIAGNOSES: Sepsis and septic shock. POSTOPERATIVE DIAGNOSES: Sepsis and septic shock. ANESTHESIA USED: None deployed. DESCRIPTION OF PROCEDURE: The right brachial region was prepared in a sterile fashion, and drapes were applied. The right brachial artery was localized by Doppler. Then, at the same site, the right brachial artery was cannulated, and a guidewire was placed. A Cook catheter was inserted over the guidewire, and the guidewire was removed. Good blood flow and good waveform were noted. No complications. Line was secured using 3-0 silk sutures. MMODL / IJN: [id number] /
--- NOTE | 2023-01-26 19:21 | P.OP ---
Date of Procedure: 01/26/23 Procedure(s) Performed: PREOPERATIVE DIAGNOSIS: Abdominal pain, sepsis, small bowel obstruction POSTOPERATIVE DIAGNOSIS: Ischemic small intestine, intra-abdominal adhesions PROCEDURE: Exploratory laparotomy with small bowel resection, jejunostomy SURGEON: Jose EBL: 50 mL ANESTHESIA: Gen. COMPLICATIONS: None OPERATIVE PROCEDURE: Patient placed on the operating table in the supine position. The patient was placed under general anesthesia. Preoperative central venous catheter and arterial line had already been placed in the ICU. Abdomen prepped and draped sterilely. Previous midline incision was re-incised using the scalpel extending inferiorly. Entrance into the peritoneal cavity took place in the infraumbilical location where there was no adhesions present. A large amount of lucas colored fluid was evacuated. The remainder of the incision was opened. Later I removed a portion of skin at the umbilicus where the mesh had been adherent to the dermis. The mesh was partially excised in that location as well. Further evacuation of free fluid within the abdomen took place. The bowel was inspected and unfortunately the majority of the small bowel had evidence of ischemia without viability. The proximal 1 foot of the jejunum was viable. The patient also had the duodenum which was viable. Distally we had approximately 2 inches of the ileum prior to the cecum which was viable. This had the appearance of a mesenteric vascular occlusion however there was some twisting of the mesentery from an adhesive band between the omentum which was adherent to the anterior abdominal wall and the sigmoid colon. I do believe the source of the ischemic changes however related to this adhesiv e band. The bowel was transected proximal and distal to the nonviable segment and the mesentery was divided using LigaSure. The specimen was passed off. The abdomen was irrigated with 3 L of saline. No bleeding was seen. It should be noted that portions of the colon also had a somewhat ischemic appearance but I think this was more related to low flow ischemia from the sepsis. Patient was on high-dose pressors prior to and during the procedure. The patient had minimal urine output during the procedure. A circular opening was then made in the left upper quadrant. Entrance into the peritoneal cavity occurred. The jejunum was brought out through this and later the jejunostomy was matured in tonto apache fashion using interrupted 3-0 Vicryl sutures. The midline incision was then reapproximated using 3 separate double-stranded #1 PDS sutures. Where we were reapproximated in the fascia we had both mesh and fascia present. The skin was then closed using kaleigh. Sterile dressings were applied and an ostomy appliance was applied. DISPOSITION: Guarded back to the ICU intubated. Spoke with the patient's sister who was present in the waiting room and also her brother Rudi and his by phone for 20-30 minutes after the procedure was complete. Discussed the severity of the intra-abdominal findings. We discussed the challenge the New would have moving forward with short bowel syndrome and the requirement for likely permanent TPN. Options of continued supportive care versus comfort measures were reviewed. We also discussed the option of changing CODE STATUS to no code at this point. They plan to consider all these options at length. They will remain in contact with one another and plan to discuss further with her other brother Robi who had surgery earlier this morning. They plan to notify ICU staff if they have come to any decisions to change extent of care. Case discussed with Dr. Humphrey as well by phone.
--- NOTE | 2023-01-26 19:30 | XR ---
EXAMINATION TYPE: XR chest 1V portable DATE OF EXAM: 01/26/2023 7:23 PM CLINICAL INDICATION:Male, 67 years old with history of Tube placement; [facility] COMPARISON: Chest radiographs from TECHNIQUE: XR chest 1V portable Frontal view of the chest. FINDINGS: Lungs/Pleura: There is no evidence of pleural effusion, focal consolidation, or pneumothorax. Pulmonary vascularity: Unremarkable. Heart/mediastinum: Cardiomediastinal silhouette is unremarkable. Musculoskeletal: No acute osseous pathology. Other findings: None Lines/Tubes: Endotracheal tube with distal tip 6.0 cm above the dulce maria. Nasogastric tube with its distal tip and side-port projecting under the diaphragm and projecting over the gastric lumen. IMPRESSION: No acute cardiopulmonary disease/process. Support tubes in appropriate position.
[2023-01-26 19:51] LABS: ABG Base Excess -8.3 mmol/L; ABG HCO3 18 mmol/L (21-25); ABG Oxygen Saturation 99.6 % (94-97); ABG PCO2 39 mmHg (35-45); ABG PH 7.29 (7.35-7.45); ABG PO2 >400 mmHg (83-108); ABG TCO2 20 mmol/L (19-24)
[2023-01-26 20:10] LABS: Glucose,Whole Blood 126 mg/dL (70-110)
[2023-01-26] MEDS ORDERED: MEMANTINE 10 MG TAB PO SCH (21:00)
[2023-01-26] MEDS ORDERED: MELATONIN 3 MG TABLET PO SCH (21:00)
[2023-01-26] MEDS ORDERED: PANTOPRAZOLE 40 MG TABLET PO SCH (21:00)
[2023-01-26 21:58] LABS: Anisocytosis Slight; HCT 20.4 % (39.0-53.0); Hypochromasia Marked; MCH 21.3 pg (25.0-35.0); Mean Platelet Volume 8.1; Microcytosis Moderate; Platelet Count 185 k/uL (150-450); Poikilocytosis Slight; RBC 2.88 m/uL (4.30-5.90); RDW 16.6 % (11.5-15.5); WBC 7.6 k/uL (3.8-10.6)
--- NOTE | 2023-01-26 22:12 | XR ---
EXAMINATION TYPE: XR chest 1V portable DATE OF EXAM: 01/26/2023 CLINICAL HISTORY: ET tube placement. TECHNIQUE: Single AP portable supine view of the chest is obtained. COMPARISON: Chest x-ray from earlier today and older studies FINDINGS: Stable appearance of endotracheal and orogastric tubes. Right basilar linear atelectasis or scarring redemonstrated. No pleural effusion or pneumothorax seen bilaterally. Cardiac silhouette size stable within normal limits. Visualized osseous structures are intact. IMPRESSION: Right basilar linear scarring and/or atelectasis. No significant change from most recent prior x-ray.
[2023-01-26 22:14] LABS: HGB 6.1 gm/dL (13.0-17.5)
[2023-01-26 22:23] LABS: ALT 18 U/L (4-49); AST 31 U/L (17-59); African American GFR (CKD) 34 (>60 ml/min/1.73 sqM); Albumin 2.3 g/dL (3.5-5.0); Alkaline Phosphatase 40 U/L (38-126); Anion Gap 14 mmol/L; Blood Urea Nitrogen 46 mg/dL (9-20); Calcium 7.4 mg/dL (8.4-10.2); Carbon Dioxide 16 mmol/L (22-30); Chloride 107 mmol/L (98-107); Glucose 119 mg/dL (74-99); Non-African American GFR(CKD) 30 (>60 ml/min/1.73 sqM); Potassium 4.7 mmol/L (3.5-5.1); Sodium 137 mmol/L (137-145); Total Bilirubin 0.5 mg/dL (0.2-1.3); Total Protein 4.7 g/dL (6.3-8.2)
[2023-01-26 22:57] LABS: Lymphocytes # (M) 2.28 k/uL (1.0-4.8); Nucleated Red Blood Cells 0 /100 WBC (0-0)
[2023-01-26 23:03] LABS: Band Neutrophils % 22 %; Eosinophils # (M) 0.08 k/uL (0-0.7); Metamyelocytes # (M) 0.53 k/uL (0); Metamyelocytes % 7 %; Monocytes # (M) 0.15 k/uL (0-1.0); Neutrophils % (M) 40 %; Total Cells Counted 200
[2023-01-26] MEDS: ARTIFICIAL TEARS-HYPROMELLOSE DROPS 15 ML BTL RIGHT EYE SCH (23:29)
[2023-01-26] MEDS: CHLORHEXIDINE GLUCONATE 15 ML CUP MUCOUS MEM SCH (23:29)
[2023-01-27 00:10] LABS: Glucose,Whole Blood 93 mg/dL (70-110)
[2023-01-27] MEDS: DEXTROSE 5% IN WATER 1,000 ML with SODIUM BICARB (1 MEQ/ML) 150 ML IV SCH ×2 (01:23→18:08)
[2023-01-27] MEDS ORDERED: SODIUM CHLORIDE 0.9% 1,000 ML IV ONE ×2 (03:26→09:46)
[2023-01-27] MEDS: SODIUM CHLORIDE 0.9% 1,000 ML IV SCH (03:39)
[2023-01-27 04:09] LABS: ABG Base Excess -8.9 mmol/L; ABG HCO3 17 mmol/L (21-25); ABG Oxygen Saturation 98.2 % (94-97); ABG PCO2 30 mmHg (35-45); ABG PH 7.35 (7.35-7.45); ABG PO2 107 mmHg (83-108); ABG TCO2 18 mmol/L (19-24); Allen Test Performed? Yes
[2023-01-27 04:30] LABS: Anisocytosis Slight; HCT 24.3 % (39.0-53.0); Hypochromasia Marked; MCH 24.7 pg (25.0-35.0); MCHC 31.7 g/dL (31.0-37.0); Mean Platelet Volume 9.7; Microcytosis Slight; Platelet Count 134 k/uL (150-450); Poikilocytosis Slight; RBC 3.13 m/uL (4.30-5.90); RDW 19.4 % (11.5-15.5); WBC 2.7 k/uL (3.8-10.6)
[2023-01-27] MEDS ORDERED: HYDROCORTISONE SUCCINATE 100 MG/2 ML VIAL IV STA (04:49)
[2023-01-27 04:51] LABS: HGB 7.7 gm/dL (13.0-17.5); MCV 77.8 fL (80.0-100.0)
[2023-01-27 04:52] LABS: ALT 20 U/L (4-49); AST 38 U/L (17-59); African American GFR (CKD) 47 (>60 ml/min/1.73 sqM); Albumin 1.8 g/dL (3.5-5.0); Alkaline Phosphatase 31 U/L (38-126); Anion Gap 11 mmol/L; Blood Urea Nitrogen 45 mg/dL (9-20); Calcium 6.5 mg/dL (8.4-10.2); Carbon Dioxide 15 mmol/L (22-30); Chloride 112 mmol/L (98-107); Glucose 76 mg/dL (74-99); Magnesium 1.6 mg/dL (1.6-2.3); Non-African American GFR(CKD) 41 (>60 ml/min/1.73 sqM); Phosphorus 4.6 mg/dL (2.5-4.5); Potassium 4.2 mmol/L (3.5-5.1); Sodium 138 mmol/L (137-145); Total Bilirubin 1.2 mg/dL (0.2-1.3); Total Protein 3.9 g/dL (6.3-8.2)
[2023-01-27] MEDS: PHENYLEPHRINE 40 MG in SODIUM CHLORIDE 0.9% 250 ML IV SCH ×2 (05:07→19:55)
[2023-01-27] MEDS: ARTIFICIAL TEARS-HYPROMELLOSE DROPS 15 ML BTL RIGHT EYE SCH ×2 (05:08→21:22)
[2023-01-27 06:08] LABS: Glucose,Whole Blood 54 mg/dL (70-110)
[2023-01-27 06:28] LABS: Glucose,Whole Blood 142 mg/dL (70-110)
[2023-01-27] MEDS ORDERED: LEVOTHYROXINE 50 MCG TAB PO SCH (06:30)
[2023-01-27] MEDS: PIPERACILLIN-TAZOBACTAM 3.375 GM in SODIUM CHLORIDE 0.9% 100 ML IVPB SCH ×3 (06:53→22:36)
--- NOTE | 2023-01-27 07:33 | XR ---
EXAMINATION TYPE: XR chest 1V portable DATE OF EXAM: 01/27/2023 COMPARISON: 01/26/2023 HISTORY: SOB, Follow Up FINDINGS: Indwelling tubes and catheters are unchanged. Stable right medial basilar scarring or atelectasis. The remainder of the lungs are clear. Stable appearance of the cardio-mediastinal structures at this time. IMPRESSION: 1. Stable portable chest. Clinical correlation and follow up until resolution is recommended.
[2023-01-27 08:01] LABS: INR 1.7 (<1.2); Prothrombin Time 16.6 sec (9.0-12.0)
[2023-01-27] MEDS ORDERED: TAMSULOSIN 0.4 MG CAP.ER.24H PO SCH (09:00)
[2023-01-27] MEDS ORDERED: ESCITALOPRAM 5 MG TAB PO SCH (09:00)
[2023-01-27] MEDS ORDERED: SENNOSIDES 8.6 MG TAB PO SCH (09:00)
[2023-01-27] MEDS: NOREPINEPHRINE 32 MG in SODIUM CHLORIDE 0.9% 218 ML IV SCH ×2 (10:00→23:07)
[2023-01-27] MEDS: PANTOPRAZOLE 40 MG/10 ML VIAL IVP SCH ×2 (10:11→20:43)
[2023-01-27] MEDS: CHLORHEXIDINE GLUCONATE 15 ML CUP MUCOUS MEM SCH ×2 (10:12→20:43)
--- NOTE | 2023-01-27 11:23 | P.PN ---
Subjective Progress Note Date: 01/27/23 CHIEF COMPLAINT: Abdominal pain HISTORY OF PRESENT ILLNESS: Patient is in the ICU on mechanical ventilation. He is postop day #1 status post exploratory laparotomy with small bowel resection and jejunostomy for ischemic small intestine and intra-abdominal adhesions. Patient has received another 2 units of blood this morning and 1 L of fluids. They are coming down on the vasopressors. He is making urine. He had a low- grade temp of 100.2. WBC is 2.7 hgb 6.1 up to 7.7 platelets 134 INR 1.7 sodium 138 potassium is 4.2 creatinine 1.71 lactic acid up at 6.5 PHYSICAL EXAM: VITAL SIGNS: Reviewed. GENERAL: Well-developed in no acute distress. HEENT: No sclera icterus. Extraocular movements grossly intact. Moist buccal mucosa. Head is atraumatic, normocephalic. ABDOMEN: Soft. Nondistended. Midline incisional dressing clean dry and intact. Jejunostomy on the left with dark greenish output NEUROLOGIC: Alert and oriented. Cranial nerves II through XII grossly intact. ASSESSMENT: 1. Ischemic small intestine and intra-abdominal adhesions status post exploratory laparotomy with small bowel resection and jejunostomy PLAN: -Continue ICU management -Continue supportive care -Patient will require lifelong TPN -CODE STATUS was changed to DO NOT RESUSCITATE Physician Cardiac Technician note has been reviewed by physician. Signing provider agrees with the documented findings, assessment, and plan of care. I have personally seen and examined the patient, reviewed the [employer] /PAs history, exam and MDM and agree with the assessment and plan as written. Based on total visit time, I have performed more than 50% of the visit. As above: Patient remains critically ill. He is making better urine today. Remains on high dose pressors. Ostomy is somewhat dusky. Family have changed his CODE STATUS to no code. They are currently discussing long-term options further. Continue antibiotics. Continue supportive care for now. Objective - Vital Signs Vital signs: Vital Signs Temp 100.2 F H 01/27/23 09:59 Pulse 111 H 01/27/23 10:15 Resp 23 01/27/23 10:15 BP 97/58 01/27/23 10:15 Pulse Ox 96 01/27/23 09:59 FiO2 40 01/27/23 09:00 Intake & Output 01/26/23 01/27/23 01/27/23 18:59 06:59 18:59 Intake Total 3056.026 3422.903 1229.579 Output Total 55 2000 480 Balance 3001.026 1422.903 749.579 Weight 59.421 kg 64.5 kg Intake: IV 1910 1560 529 Dextrose 5% in Water 1, 525 900 300 000 ml @ 75 mls/hr IV . [id number] [facility] with Sodium Bicarb (1 Meq/ml) 150 ml Rx#:[id number] Pressure Bag (0.9 Sodium 9 Chloride) Sodium Chloride 0.9% 1, 385 660 220 000 ml @ 55 mls/hr IV . [id number] [facility] Rx#:[id number] Intake, IV Titration 4664.316 4235.903 80.579 Amount Norepinephrine 32 mg In 46.026 45.404 Sodium Chloride 0.9% 218 ml @ 0.03 MCG/KG/MIN 0. 836 mls/hr IV .Q24H [facility] Rx#:[id number] Norepinephrine 32 mg In 17.506 Sodium Chloride 0.9% 218 ml @ 0.03 MCG/KG/MIN 0. 907 mls/hr IV .Q24H [facility] Rx#:[id number] Phenylephrine 40 mg In 63.073 Sodium Chloride 0.9% 250 ml @ 0.5 MCG/KG/MIN 12. 287 mls/hr IV .[id number] [facility] Rx#:[id number] Piperacillin-Tazobactam 3 100 .375 gm In Sodium Chloride 0.9% 100 ml @ 25 mls/hr IVPB Q8H [facility] Rx#: [id number] Sodium Chloride 0.9% 1, 1000 000 ml @ 999 mls/hr IV . Q1H1M [facility] Rx#:[id number] Sodium Chloride 0.9% 1, 1000 000 ml @ 999 mls/hr IV . Q1H1M [facility] Rx#:[id number] Vasopressin 60 unit In 28.84 Sodium Chloride 0.9% 150 ml @ 0.03 UNITS/MIN 4.59 mls/hr IV .Q24H [facility] Rx#: [id number] propofoL 1,000 mg In 18.659 Empty Bag 1 bag @ 15 MCG/ KG/MIN 5.348 mls/hr IV . [id number] [facility] Rx#:[id number] Blood Product 620 620 Rc As-1 Unit 0 310 [id number] Rc As-1 Unit 310 [id number] Rc As-1 Unit 310 [id number] Rc As-1 Unit 310 [id number] Other 150 Rc As-1 Unit 150 [id number] Output: Drainage 670 250 Left Abdomen 670 250 Urine 5 1330 230 Estimated Blood Loss 50 Other: Voiding Method Indwelling Catheter ABP, PAP, CO, CI - Last Documented Arterial Blood Pressure 71/47 - Labs CBC & Chem 7: 01/27/23 11:40 01/27/23 04:00 Labs: Abnormal Lab Results - Last 24 Hours (Table) 01/26/23 01/26/23 01/26/23 Range/Units 13:20 19:48 20:08 WBC (3.8-10.6) k/uL RBC (4.30-5.90) m/uL Hgb (13.0-17.5) gm/dL Hct (39.0-53.0) % MCV (80.0-100.0) fL MCH (25.0-35.0) pg MCHC (31.0-37.0) g/dL RDW (11.5-15.5) % Plt Count (150-450) k/uL Metamyelocytes # (Man) (0) k/uL PT (9.0-12.0) sec INR (<1.2) ABG pH 7.29 L (7.35-7.45) ABG pCO2 (35-45) mmHg ABG pO2 >400 H (83-108) mmHg ABG HCO3 18 L (21-25) mmol/L ABG Total CO2 (19-24) mmol/L ABG O2 Saturation 99.6 H (94-97) % Chloride (98-107) mmol/L Carbon Dioxide (22-30) mmol/L BUN (9-20) mg/dL Creatinine (0.66-1.25) mg/dL Glucose (74-99) mg/dL POC Glucose (mg/dL) 126 H (70-110) mg/dL Plasma Lactic Acid Adrian 6.4 H* (0.7-2.0) mmol/L Calcium (8.4-10.2) mg/dL Phosphorus (2.5-4.5) mg/dL Alkaline Phosphatase (38-126) U/L Total Protein (6.3-8.2) g/dL Albumin (3.5-5.0) g/dL Crossmatch 01/26/23 01/26/23 01/26/23 Range/Units 21:18 21:18 21:18 WBC (3.8-10.6) k/uL RBC 2.88 L (4.30-5.90) m/uL Hgb 6.1 L* D (13.0-17.5) gm/dL Hct 20.4 L (39.0-53.0) % MCV 71.0 L (80.0-100.0) fL MCH 21.3 L (25.0-35.0) pg MCHC 30.0 L (31.0-37.0) g/dL RDW 16.6 H (11.5-15.5) % Plt Count (150-450) k/uL Metamyelocytes # (Man) 0.53 H (0) k/uL PT (9.0-12.0) sec INR (<1.2) ABG pH (7.35-7.45) ABG pCO2 (35-45) mmHg ABG pO2 (83-108) mmHg ABG HCO3 (21-25) mmol/L ABG Total CO2 (19-24) mmol/L ABG O2 Saturation (94-97) % Chloride (98-107) mmol/L Carbon Dioxide 16 L (22-30) mmol/L BUN 46 H (9-20) mg/dL Creatinine 2.23 H (0.66-1.25) mg/dL Glucose 119 H (74-99) mg/dL POC Glucose (mg/dL) (70-110) mg/dL Plasma Lactic Acid Adrian 4.8 H* (0.7-2.0) mmol/L Calcium 7.4 L (8.4-10.2) mg/dL Phosphorus (2.5-4.5) mg/dL Alkaline Phosphatase (38-126) U/L Total Protein 4.7 L (6.3-8.2) g/dL Albumin 2.3 L (3.5-5.0) g/dL Crossmatch 01/26/23 01/27/23 01/27/23 Range/Units 21:18 02:00 04:00 WBC 2.7 L (3.8-10.6) k/uL RBC 3.13 L (4.30-5.90) m/uL Hgb 7.7 L D (13.0-17.5) gm/dL Hct 24.3 L (39.0-53.0) % MCV 77.8 L D (80.0-100.0) fL MCH 24.7 L (25.0-35.0) pg MCHC (31.0-37.0) g/dL RDW 19.4 H (11.5-15.5) % Plt Count 134 L (150-450) k/uL Metamyelocytes # (Man) (0) k/uL PT (9.0-12.0) sec INR (<1.2) ABG pH (7.35-7.45) ABG pCO2 (35-45) mmHg ABG pO2 (83-108) mmHg ABG HCO3 (21-25) mmol/L ABG Total CO2 (19-24) mmol/L ABG O2 Saturation (94-97) % Chloride (98-107) mmol/L Carbon Dioxide (22-30) mmol/L BUN (9-20) mg/dL Creatinine (0.66-1.25) mg/dL Glucose (74-99) mg/dL POC Glucose (mg/dL) (70-110) mg/dL Plasma Lactic Acid Adrian 4.8 H* (0.7-2.0) mmol/L Calcium (8.4-10.2) mg/dL Phosphorus (2.5-4.5) mg/dL Alkaline Phosphatase (38-126) U/L Total Protein (6.3-8.2) g/dL Albumin (3.5-5.0) g/dL Crossmatch See Detail 01/27/23 01/27/23 01/27/23 Range/Units 04:00 04:03 06:06 WBC (3.8-10.6) k/uL RBC (4.30-5.90) m/uL Hgb (13.0-17.5) gm/dL Hct (39.0-53.0) % MCV (80.0-100.0) fL MCH (25.0-35.0) pg MCHC (31.0-37.0) g/dL RDW (11.5-15.5) % Plt Count (150-450) k/uL Metamyelocytes # (Man) (0) k/uL PT (9.0-12.0) sec INR (<1.2) ABG pH (7.35-7.45) ABG pCO2 30 L (35-45) mmHg ABG pO2 (83-108) mmHg ABG HCO3 17 L (21-25) mmol/L ABG Total CO2 18 L (19-24) mmol/L ABG O2 Saturation 98.2 H (94-97) % Chloride 112 H (98-107) mmol/L Carbon Dioxide 15 L (22-30) mmol/L BUN 45 H (9-20) mg/dL Creatinine 1.71 H (0.66-1.25) mg/dL Glucose (74-99) mg/dL POC Glucose (mg/dL) 54 L (70-110) mg/dL Plasma Lactic Acid Adrian (0.7-2.0) mmol/L Calcium 6.5 L (8.4-10.2) mg/dL Phosphorus 4.6 H (2.5-4.5) mg/dL Alkaline Phosphatase 31 L (38-126) U/L Total Protein 3.9 L (6.3-8.2) g/dL Albumin 1.8 L (3.5-5.0) g/dL Crossmatch 01/27/23 01/27/23 01/27/23 Range/Units 06:27 06:30 07:48 WBC (3.8-10.6) k/uL RBC (4.30-5.90) m/uL Hgb (13.0-17.5) gm/dL Hct (39.0-53.0) % MCV (80.0-100.0) fL MCH (25.0-35.0) pg MCHC (31.0-37.0) g/dL RDW (11.5-15.5) % Plt Count (150-450) k/uL Metamyelocytes # (Man) (0) k/uL PT 16.6 H (9.0-12.0) sec INR 1.7 H (<1.2) ABG pH (7.35-7.45) ABG pCO2 (35-45) mmHg ABG pO2 (83-108) mmHg ABG HCO3 (21-25) mmol/L ABG Total CO2 (19-24) mmol/L ABG O2 Saturation (94-97) % Chloride (98-107) mmol/L Carbon Dioxide (22-30) mmol/L BUN (9-20) mg/dL Creatinine (0.66-1.25) mg/dL Glucose (74-99) mg/dL POC Glucose (mg/dL) 142 H (70-110) mg/dL Plasma Lactic Acid Adrian 6.5 H* (0.7-2.0) mmol/L Calcium (8.4-10.2) mg/dL Phosphorus (2.5-4.5) mg/dL Alkaline Phosphatase (38-126) U/L Total Protein (6.3-8.2) g/dL Albumin (3.5-5.0) g/dL Crossmatch
[2023-01-27 11:43] LABS: Glucose,Whole Blood 79 mg/dL (70-110)
[2023-01-27 12:04] LABS: Anisocytosis Slight; HCT 27.8 % (39.0-53.0); HGB 8.9 gm/dL (13.0-17.5); Hypochromasia Marked; MCH 25.7 pg (25.0-35.0); MCHC 32.2 g/dL (31.0-37.0); MCV 79.9 fL (80.0-100.0); Mean Platelet Volume 10.3; Microcytosis Slight; Platelet Count 122 k/uL (150-450); Poikilocytosis Moderate; RBC 3.47 m/uL (4.30-5.90); RDW 17.8 % (11.5-15.5)
[2023-01-27] MEDS ORDERED: Magnesium Replacement Protocol 1 EACH MISC MISCELLANE PRN (12:08)
[2023-01-27] MEDS ORDERED: DEXTROSE 5% IN WATER 100 ML with AMIODARONE 150 MG IV ONE (12:20)
[2023-01-27] MEDS ORDERED: AMIODARONE 360 MG in DEXTROSE 5% IN WATER 200 ML IV ONE ×2 (12:30)
--- NOTE | 2023-01-27 12:36 | P.PN ---
Subjective Progress Note Date: 01/27/23 Principal diagnosis: Acute abdominal sepsis and ischemic bowel This is a 67-year-old white male with history of hypertension, chronic atrial fibrillation, type 2 diabetes, obstructive uropathy, and history of ventral hernia. Patient was brought into the ER because he had a syncopal episode while at the snf and upon EMS arrival the patient was noted to be very hypotensive. Indeed in the ER the patient was noted to be hypotensive, he was also noted to have significant lactic acidosis, significant anion gap, leukocytosis, urine was unremarkable, influenza screening are as the screening and COVID-[address] abdomen and pelvis showed findings hackett ggestive of small bowel ischemia and/or small bowel obstruction. Patient was also noted to have ascites and cholelithiasis. I did see the patient in the ER, recommended that we continue Zosyn, patient was already on norepinephrine at 0.15 mcg/kg/h. Patient already received 2 L of fluids and I have ordered a third liter to be given I also recommended a bicarb drip to be started nasogastric tube showed mostly coffee ground material in the cup from gastric suctioning. According to the patient he has been complaining of abdominal pain for 1 week. And his abdomen has been distended for at least one week. Patient is also on a nonrebreather mask at 15 L/m. He has a central line in the right groin placed by the ER physician. Lactic acid was as high as 10, follow-up lactic acid after fluid boluses down to 6.4 I accepted the patient to be admitted to the ICU. Dr. shell already saw the patient and he is planning exploratory laparotomy in the next few hours. Reevaluated today on 01/27/2023, patient exploratory laparotomy with small bowel resection, jejunostomy, and this was done by Dr. shell yesterday. Patient was found to have ischemic small intestine and intra-abdominal adhesions. Patient required multiple pressors during the surgery and after the surgery, he was also on pressors prior to going to OR. Patient remains intubated and mechanically ventilated. He is on assist control rate of 16 tidal volume 500 FiO2 40% and PEEP of 5. ABG showed a pO2 of 17 pCO2 of 30 pH of 7.35, patient remains on bicarb drip. Patient also had some intraoperative and postoperative blood loss, hemoglobin went down to as low as 6.1, received so far 4 units of packed RBCs and his last hemoglobin is 8.9 at 11:30 AM no further active bleeding noted from the stoma. Patient is empirically on Zosyn, he remains hypotensive in spite of multiple drips including norepinephrine and 32 mcg/m, he is also on vasopressin at 0.4 units per minute Rodrigue-Synephrine at 1.1 mcg/kg/m propofol at 25 mcg/kg/m is also on bicarb drip 150 mEq at 75 mL per hour patient is having borderline urine output with urine output of 50 mL per hour. His sister and family members are apparently aware of his poor prognosis, Dr. shell updated the family yesterday after the surgery on the overall prognostic picture, and CODE STATUS was changed to DO NOT RESUSCITATE. In the meantime we will continue all present supportive care measures on this patient. Although the patient is very critically ill, and prognosis is extremely guarded Objective - Vital Signs Vital signs: Vital Signs Temp 100.6 F H 01/27/23 11:00 Pulse 107 H 01/27/23 11:15 Resp 22 01/27/23 11:15 BP 100/61 01/27/23 11:15 Pulse Ox 99 01/27/23 11:00 FiO2 40 01/27/23 11:57 Intake & Output 01/26/23 01/27/23 01/27/23 18:59 06:59 18:59 Intake Total 3056.026 3422.903 2381.670 Output Total 55 2000 565 Balance 3001.026 2630.509 6443.670 Weight 59.421 kg 64.5 kg Intake: IV 1910 1560 1662 Dextrose 5% in Water 1, 525 900 375 000 ml @ 75 mls/hr IV . [id number] [facility] with Sodium Bicarb (1 Meq/ml) 150 ml Rx#:[id number] Pressure Bag (0.9 Sodium 12 Chloride) Sodium Chloride 0.9% 1, 385 660 275 000 ml @ 55 mls/hr IV . [id number] [facility] Rx#:[id number] Sodium Chloride 0.9% 1, 1000 000 ml @ 999 mls/hr IV . Q1H1M [facility] Rx#:[id number] Intake, IV Titration 1793.886 0728.903 99.670 Amount Norepinephrine 32 mg In 46.026 45.404 Sodium Chloride 0.9% 218 ml @ 0.03 MCG/KG/MIN 0. 836 mls/hr IV .Q24H [facility] Rx#:[id number] Norepinephrine 32 mg In 24.309 Sodium Chloride 0.9% 218 ml @ 0.03 MCG/KG/MIN 0. 907 mls/hr IV .Q24H [facility] Rx#:[id number] Phenylephrine 40 mg In 75.361 Sodium Chloride 0.9% 250 ml @ 0.5 MCG/KG/MIN 12. 287 mls/hr IV .[id number] [facility] Rx#:[id number] Piperacillin-Tazobactam 3 100 .375 gm In Sodium Chloride 0.9% 100 ml @ 25 mls/hr IVPB Q8H [facility] Rx#: [id number] Sodium Chloride 0.9% 1, 1000 000 ml @ 999 mls/hr IV . Q1H1M [facility] Rx#:[id number] Sodium Chloride 0.9% 1, 1000 000 ml @ 999 mls/hr IV . Q1H1M [facility] Rx#:[id number] Vasopressin 60 unit In 28.84 Sodium Chloride 0.9% 150 ml @ 0.03 UNITS/MIN 4.59 mls/hr IV .Q24H [facility] Rx#: [id number] propofoL 1,000 mg In 18.659 Empty Bag 1 bag @ 15 MCG/ KG/MIN 5.348 mls/hr IV . [id number] [facility] Rx#:[id number] Blood Product 620 620 Rc As-1 Unit 0 310 [id number] Rc As-1 Unit 310 [id number] Rc As-1 Unit 310 [id number] Rc As-1 Unit 310 [id number] Other 150 Rc As-1 Unit 150 [id number] Output: Gastric Drainage 50 Drainage 670 250 Left Abdomen 670 250 Urine 5 1330 265 Estimated Blood Loss 50 Other: Voiding Method Indwelling Catheter ABP, PAP, CO, CI - Last Documented Arterial Blood Pressure 84/46 - Exam Physical Exam: Revealed 67-year-old white male intubated, sedated, mechanically ventilated. Head: Atraumatic, normocephalic., endotracheal tube is intact. HEENT:[Neck is supple.] [No neck masses.] [No thyromegaly.] [No JVD.] Continues to have dry mucous membranes. Chest: Symmetrical chest expansion. [Clear throughout, no crackles, no rhonchi, no wheezes.] Cardiac Exam: [Tachycardic, normal S1 and S2, no S3 gallop. No murmur. Abdomen: Soft. Nondistended. Midline incisional dressing clean dry and intact. Jejunostomy on the left with dark greenish output Extremities: [No clubbing, no edema, no cyanosis.] Neurological Exam: Cannot assess, patient is sedated. On propofol. Skin: No rashes. - Labs CBC & Chem 7: 01/27/23 11:40 01/27/23 04:00 Labs: Abnormal Lab Results - Last 24 Hours (Table) 01/26/23 01/26/23 01/26/23 Range/Units 13:20 19:48 20:08 WBC (3.8-10.6) k/uL RBC (4.30-5.90) m/uL Hgb (13.0-17.5) gm/dL Hct (39.0-53.0) % MCV (80.0-100.0) fL MCH (25.0-35.0) pg MCHC (31.0-37.0) g/dL RDW (11.5-15.5) % Plt Count (150-450) k/uL Metamyelocytes # (Man) (0) k/uL PT (9.0-12.0) sec INR (<1.2) ABG pH 7.29 L (7.35-7.45) ABG pCO2 (35-45) mmHg ABG pO2 >400 H (83-108) mmHg ABG HCO3 18 L (21-25) mmol/L ABG Total CO2 (19-24) mmol/L ABG O2 Saturation 99.6 H (94-97) % Chloride (98-107) mmol/L Carbon Dioxide (22-30) mmol/L BUN (9-20) mg/dL Creatinine (0.66-1.25) mg/dL Glucose (74-99) mg/dL POC Glucose (mg/dL) 126 H (70-110) mg/dL Plasma Lactic Acid Adrian 6.4 H* (0.7-2.0) mmol/L Calcium (8.4-10.2) mg/dL Phosphorus (2.5-4.5) mg/dL Alkaline Phosphatase (38-126) U/L Total Protein (6.3-8.2) g/dL Albumin (3.5-5.0) g/dL Crossmatch 01/26/23 01/26/23 01/26/23 Range/Units 21:18 21:18 21:18 WBC (3.8-10.6) k/uL RBC 2.88 L (4.30-5.90) m/uL Hgb 6.1 L* D (13.0-17.5) gm/dL Hct 20.4 L (39.0-53.0) % MCV 71.0 L (80.0-100.0) fL MCH 21.3 L (25.0-35.0) pg MCHC 30.0 L (31.0-37.0) g/dL RDW 16.6 H (11.5-15.5) % Plt Count (150-450) k/uL Metamyelocytes # (Man) 0.53 H (0) k/uL PT (9.0-12.0) sec INR (<1.2) ABG pH (7.35-7.45) ABG pCO2 (35-45) mmHg ABG pO2 (83-108) mmHg ABG HCO3 (21-25) mmol/L ABG Total CO2 (19-24) mmol/L ABG O2 Saturation (94-97) % Chloride (98-107) mmol/L Carbon Dioxide 16 L (22-30) mmol/L BUN 46 H (9-20) mg/dL Creatinine 2.23 H (0.66-1.25) mg/dL Glucose 119 H (74-99) mg/dL POC Glucose (mg/dL) (70-110) mg/dL Plasma Lactic Acid Adrian 4.8 H* (0.7-2.0) mmol/L Calcium 7.4 L (8.4-10.2) mg/dL Phosphorus (2.5-4.5) mg/dL Alkaline Phosphatase (38-126) U/L Total Protein 4.7 L (6.3-8.2) g/dL Albumin 2.3 L (3.5-5.0) g/dL Crossmatch 01/26/23 01/27/23 01/27/23 Range/Units 21:18 02:00 04:00 WBC 2.7 L (3.8-10.6) k/uL RBC 3.13 L (4.30-5.90) m/uL Hgb 7.7 L D (13.0-17.5) gm/dL Hct 24.3 L (39.0-53.0) % MCV 77.8 L D (80.0-100.0) fL MCH 24.7 L (25.0-35.0) pg MCHC (31.0-37.0) g/dL RDW 19.4 H (11.5-15.5) % Plt Count 134 L (150-450) k/uL Metamyelocytes # (Man) (0) k/uL PT (9.0-12.0) sec INR (<1.2) ABG pH (7.35-7.45) ABG pCO2 (35-45) mmHg ABG pO2 (83-108) mmHg ABG HCO3 (21-25) mmol/L ABG Total CO2 (19-24) mmol/L ABG O2 Saturation (94-97) % Chloride (98-107) mmol/L Carbon Dioxide (22-30) mmol/L BUN (9-20) mg/dL Creatinine (0.66-1.25) mg/dL Glucose (74-99) mg/dL POC Glucose (mg/dL) (70-110) mg/dL Plasma Lactic Acid Adrian 4.8 H* (0.7-2.0) mmol/L Calcium (8.4-10.2) mg/dL Phosphorus (2.5-4.5) mg/dL Alkaline Phosphatase (38-126) U/L Total Protein (6.3-8.2) g/dL Albumin (3.5-5.0) g/dL Crossmatch See Detail 01/27/23 01/27/23 01/27/23 Range/Units 04:00 04:03 06:06 WBC (3.8-10.6) k/uL RBC (4.30-5.90) m/uL Hgb (13.0-17.5) gm/dL Hct (39.0-53.0) % MCV (80.0-100.0) fL MCH (25.0-35.0) pg MCHC (31.0-37.0) g/dL RDW (11.5-15.5) % Plt Count (150-450) k/uL Metamyelocytes # (Man) (0) k/uL PT (9.0-12.0) sec INR (<1.2) ABG pH (7.35-7.45) ABG pCO2 30 L (35-45) mmHg ABG pO2 (83-108) mmHg ABG HCO3 17 L (21-25) mmol/L ABG Total CO2 18 L (19-24) mmol/L ABG O2 Saturation 98.2 H (94-97) % Chloride 112 H (98-107) mmol/L Carbon Dioxide 15 L (22-30) mmol/L BUN 45 H (9-20) mg/dL Creatinine 1.71 H (0.66-1.25) mg/dL Glucose (74-99) mg/dL POC Glucose (mg/dL) 54 L (70-110) mg/dL Plasma Lactic Acid Adrian (0.7-2.0) mmol/L Calcium 6.5 L (8.4-10.2) mg/dL Phosphorus 4.6 H (2.5-4.5) mg/dL Alkaline Phosphatase 31 L (38-126) U/L Total Protein 3.9 L (6.3-8.2) g/dL Albumin 1.8 L (3.5-5.0) g/dL Crossmatch 01/27/23 01/27/23 01/27/23 Range/Units 06:27 06:30 07:48 WBC (3.8-10.6) k/uL RBC (4.30-5.90) m/uL Hgb (13.0-17.5) gm/dL Hct (39.0-53.0) % MCV (80.0-100.0) fL MCH (25.0-35.0) pg MCHC (31.0-37.0) g/dL RDW (11.5-15.5) % Plt Count (150-450) k/uL Metamyelocytes # (Man) (0) k/uL PT 16.6 H (9.0-12.0) sec INR 1.7 H (<1.2) ABG pH (7.35-7.45) ABG pCO2 (35-45) mmHg ABG pO2 (83-108) mmHg ABG HCO3 (21-25) mmol/L ABG Total CO2 (19-24) mmol/L ABG O2 Saturation (94-97) % Chloride (98-107) mmol/L Carbon Dioxide (22-30) mmol/L BUN (9-20) mg/dL Creatinine (0.66-1.25) mg/dL Glucose (74-99) mg/dL POC Glucose (mg/dL) 142 H (70-110) mg/dL Plasma Lactic Acid Adrian 6.5 H* (0.7-2.0) mmol/L Calcium (8.4-10.2) mg/dL Phosphorus (2.5-4.5) mg/dL Alkaline Phosphatase (38-126) U/L Total Protein (6.3-8.2) g/dL Albumin (3.5-5.0) g/dL Crossmatch 01/27/23 Range/Units 11:40 WBC (3.8-10.6) k/uL RBC 3.47 L (4.30-5.90) m/uL Hgb 8.9 L (13.0-17.5) gm/dL Hct 27.8 L (39.0-53.0) % MCV 79.9 L (80.0-100.0) fL MCH (25.0-35.0) pg MCHC (31.0-37.0) g/dL RDW 17.8 H (11.5-15.5) % Plt Count 122 L (150-450) k/uL Metamyelocytes # (Man) (0) k/uL PT (9.0-12.0) sec INR (<1.2) ABG pH (7.35-7.45) ABG pCO2 (35-45) mmHg ABG pO2 (83-108) mmHg ABG HCO3 (21-25) mmol/L ABG Total CO2 (19-24) mmol/L ABG O2 Saturation (94-97) % Chloride (98-107) mmol/L Carbon Dioxide (22-30) mmol/L BUN (9-20) mg/dL Creatinine (0.66-1.25) mg/dL Glucose (74-99) mg/dL POC Glucose (mg/dL) (70-110) mg/dL Plasma Lactic Acid Adrian (0.7-2.0) mmol/L Calcium (8.4-10.2) mg/dL Phosphorus (2.5-4.5) mg/dL Alkaline Phosphatase (38-126) U/L Total Protein (6.3-8.2) g/dL Albumin (3.5-5.0) g/dL Crossmatch Assessment and Plan Assessment: Impression:Exploratory laparotomy with small bowel resection, jejunostomy, postoperative day #1 Acute hypoxic respiratory failure secondary to abdominal sepsis and septic shock, with extensive bowel ischemia Abdominal sepsis and septic shock Acute lactic acidosis secondary to above /bowel ischemia and sepsis with septic shock Paroxysmal atrial fibrillation History of benign essential hypertension Ventral hernia Acute kidney injury secondary to sepsis and septic shock/suspect acute tubular necrosis however improved today compared to yesterday Recommendation: Continue to treat the patient in the ICU Continue hemodynamic support/pressors Continue antibiotics as Zosyn and we'll consult infectious disease to evaluate Continue sedation Continue fluids and bicarbonate. Continue to monitor electrolytes and CBC on a regular basis Transfuse for any hemoglobin below 7 Continue GI and DVT prophylaxis Consider TPN in the next 24 hours/nutritional support apparently the patient may have to be on TPN lifetime. Overall prognosis remains poor and guarded. Updated his sister at bedside on his condition. And she is very well aware of the poor prognosis. We'll continue to follow, patient is critically, critical care time is over 30 minutes Time with Patient: Greater than 30
--- NOTE | 2023-01-27 16:20 | P.PN ---
Subjective Progress Note Date: 01/27/23 (delayed charting seen at 1045) Patient is a 67 -year-old male with history of high blood pressure, atrial fibrillation, diabetes mellitus type 2, obstructive uropathy, and long-standing ventral hernia who presented to the ER from his shelter due to syncopal episode. In the ER he underwent extensive evaluation. On arrival was vital signs were remarkable for blood pressure 67/33 and a pulse of 60. Laboratory analysis was reviewed including a CBC, coagulation studies, CMP, liver function, lactic acid, and troponin which were remarkable for white blood cell count 15, hemoglobin 8.7, hematocrit 29.9, INR 1.6, carbon dioxide 14, anion gap 19, , lactic acid 9.6. Influenza A/B/RSV/COVID-[address] abdomen and pelvis completed which showed small bowel ischemia versus obstruction, ascites, cholelithiasis. In the ER he was given 2 L normal saline. He remained hypot ensive and was started on norepinephrine and Zosyn. Arrangements were made for admission to the ICU. He was seen by surgery, he was administered a dose of K Centra and underwent urgent exploratory laparotomy with small bowel resection and jejunostomy. The majority of the small bowel was resected with approximately 1 foot of jejunum that was viable, and duodenum was also viable. 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 Overnight patient's vasopressor requirements increased and he was subsequently started on phenylephrine and vasopressin. Patient seen and examined at bedside. He is intubated and sedated. Per nursing to have been going up on pressors overnight. Patient received 4 units of packed red blood cells. Since that time they have been weaning vasopressors slightly. Patient is now DO NOT RESUSCITATE. Family present at bedside and all questions answered. Vital signs reviewed General: Ill appearing, maximal distress, appears at stated age Cardiovascular: S1S2 reg, no murmur, positive posterior tibial pulse bilateral, Lungs: CTA bilateral, no rhonchi, no rales , no accessory muscle use Abdominal: soft, nontender to palpation, no guarding, no appreciable organomegaly, +ostomy, + midline dressing without soak through Ext: + gross muscle atrophy, no edema b/l lower extremities, no contractures Neuro: Sedated on vent Psych: Sedated on vent Assessment/Plan: Ischemic colitis s/p small bowel ressection with jejunostomy Acute hypoxic respiratory failure Lacitic acidosis Septic shock -Pulmonary no reviewed: Consult infectious disease, transfuse for hemoglobin l ess than 7, consider TPN in the next 24 hours, extremely poor prognosis. -Surgical noye reviewed: Patient will require lifelong TPN - Zosyn 3.375 g IVPB q 8 hours D#2 - NS at 55 cc/hr, D5W with 3 A of bicarbonate at 75 mL/h - Follow lactic acid - NGT to LIS - hold Lopressor - solucortef 100 IVP TID - On vaso, phenylephrine, and norepi - TPN in AM Acute kidney Injury due to ATN - improving -Likely secondary to hypoperfusion -Avoid nephrotoxic agents -IV fluids -Repeat creatinine in a.m. -Maintain map greater than 65 Anemia, due to acute blood loss- s/p 4 untis pRBC Probable early DIC vs DOAC bleeding - Kcentra -Follow CBC - no need for iron studies due to transfusion - repat coags, fibrinogen at 1800 Atrial fibrillation with controlled ventricular rate -Metoprolol on hold secondary to hypotension -hold xarelto Diabetes mellitus type 2 - not on chronic medications - SSI, follow BS Chronic: Hypertension Cirrhosis Constipation Gastric ulcer Encephalopathy Abdominal hernia Imaging: Chest x-ray: Increased vasculature markings Data Review: Labs reviewed include CBC, coags, ABG, basic metabolic profile, lactic acid, phosphorus, magnesium, albumin, and liver function. Remarkable for white blood cell count 2.7, hemoglobin 7.7, platelets 134, INR 1.7, chloride 112, carbon dioxide 15, BUN 45, creatinine 1.71, lactic acid 6.5, calcium 6.5, phosphorus 4.6, albumin 1.2, cortisol 16 Cultures negative to date Poor prognosis DVT prophylaxis: SCDs Discussed with: Patient, nursing Anticipated discharge date: Pending clinical course Anticipated discharge place: Pending clinical course This dictation was prepared using 5o9 voice recognition software. Though every attempt is made to correct errors during dictation some may still exist. Objective - Vital Signs Vital signs: Vital Signs Temp 100.9 F H 01/27/23 16:00 Pulse 144 H 01/27/23 16:15 Resp 27 H 01/27/23 16:15 BP 95/58 01/27/23 16:15 Pulse Ox 97 01/27/23 16:15 FiO2 40 01/27/23 15:40 Intake & Output 01/26/23 01/27/23 01/27/23 18:59 06:59 18:59 Intake Total 3056.026 3422.903 3147.249 Output Total 55 2000 1030 Balance 3001.026 4579.475 1241.249 Weight 59.421 kg 64.5 kg 64.5 kg Intake: IV 1910 1560 2327 Dextrose 5% in Water 1, 525 900 750 000 ml @ 75 mls/hr IV . [id number] [facility] with Sodium Bicarb (1 Meq/ml) 150 ml Rx#:[id number] Pressure Bag (0.9 Sodium 27 Chloride) Sodium Chloride 0.9% 1, 385 660 550 000 ml @ 55 mls/hr IV . [id number] [facility] Rx#:[id number] Sodium Chloride 0.9% 1, 1000 000 ml @ 999 mls/hr IV . Q1H1M [facility] Rx#:[id number] Intake, IV Titration 3471.698 0129.903 200.249 Amount Norepinephrine 32 mg In 46.026 45.404 Sodium Chloride 0.9% 218 ml @ 0.03 MCG/KG/MIN 0. 836 mls/hr IV .Q24H [facility] Rx#:[id number] Norepinephrine 32 mg In 35.561 Sodium Chloride 0.9% 218 ml @ 0.03 MCG/KG/MIN 0. 907 mls/hr IV .Q24H [facility] Rx#:[id number] Phenylephrine 40 mg In 83.347 Sodium Chloride 0.9% 250 ml @ 0.5 MCG/KG/MIN 12. 287 mls/hr IV .[id number] [facility] Rx#:[id number] Piperacillin-Tazobactam 3 100 .375 gm In Sodium Chloride 0.9% 100 ml @ 25 mls/hr IVPB Q8H [facility] Rx#: [id number] Sodium Chloride 0.9% 1, 1000 000 ml @ 999 mls/hr IV . Q1H1M [facility] Rx#:[id number] Sodium Chloride 0.9% 1, 1000 000 ml @ 999 mls/hr IV . Q1H1M [facility] Rx#:[id number] Vasopressin 60 unit In 28.84 Sodium Chloride 0.9% 150 ml @ 0.03 UNITS/MIN 4.59 mls/hr IV .Q24H [facility] Rx#: [id number] propofoL 1,000 mg In 18.659 81.341 Empty Bag 1 bag @ 15 MCG/ KG/MIN 5.348 mls/hr IV . [id number] [facility] Rx#:[id number] Blood Product 620 620 Rc As-1 Unit 0 310 [id number] Rc As-1 Unit 310 [id number] Rc As-1 Unit 310 [id number] Rc As-1 Unit 310 [id number] Other 150 Rc As-1 Unit 150 [id number] Output: Gastric Drainage 50 Drainage 670 320 Left Abdomen 670 320 Urine 5 1330 660 Estimated Blood Loss 50 Other: Voiding Method Indwelling Catheter Indwelling Catheter ABP, PAP, CO, CI - Last Documented Arterial Blood Pressure 70/44 - Labs CBC & Chem 7: 01/27/23 11:40 01/27/23 04:00 Labs: Abnormal Lab Results - Last 24 Hours (Table) 01/26/23 01/26/23 01/26/23 Range/Units 19:48 20:08 21:18 WBC (3.8-10.6) k/uL RBC (4.30-5.90) m/uL Hgb (13.0-17.5) gm/dL Hct (39.0-53.0) % MCV (80.0-100.0) fL MCH (25.0-35.0) pg MCHC (31.0-37.0) g/dL RDW (11.5-15.5) % Plt Count (150-450) k/uL Metamyelocytes # (Man) (0) k/uL PT (9.0-12.0) sec INR (<1.2) ABG pH 7.29 L (7.35-7.45) ABG pCO2 (35-45) mmHg ABG pO2 >400 H (83-108) mmHg ABG HCO3 18 L (21-25) mmol/L ABG Total CO2 (19-24) mmol/L ABG O2 Saturation 99.6 H (94-97) % Chloride (98-107) mmol/L Carbon Dioxide (22-30) mmol/L BUN (9-20) mg/dL Creatinine (0.66-1.25) mg/dL Glucose (74-99) mg/dL POC Glucose (mg/dL) 126 H (70-110) mg/dL Plasma Lactic Acid Adrian 4.8 H* (0.7-2.0) mmol/L Calcium (8.4-10.2) mg/dL Phosphorus (2.5-4.5) mg/dL Alkaline Phosphatase (38-126) U/L Total Protein (6.3-8.2) g/dL Albumin (3.5-5.0) g/dL Crossmatch 01/26/23 01/26/23 01/26/23 Range/Units 21:18 21:18 21:18 WBC (3.8-10.6) k/uL RBC 2.88 L (4.30-5.90) m/uL Hgb 6.1 L* D (13.0-17.5) gm/dL Hct 20.4 L (39.0-53.0) % MCV 71.0 L (80.0-100.0) fL MCH 21.3 L (25.0-35.0) pg MCHC 30.0 L (31.0-37.0) g/dL RDW 16.6 H (11.5-15.5) % Plt Count (150-450) k/uL Metamyelocytes # (Man) 0.53 H (0) k/uL PT (9.0-12.0) sec INR (<1.2) ABG pH (7.35-7.45) ABG pCO2 (35-45) mmHg ABG pO2 (83-108) mmHg ABG HCO3 (21-25) mmol/L ABG Total CO2 (19-24) mmol/L ABG O2 Saturation (94-97) % Chloride (98-107) mmol/L Carbon Dioxide 16 L (22-30) mmol/L BUN 46 H (9-20) mg/dL Creatinine 2.23 H (0.66-1.25) mg/dL Glucose 119 H (74-99) mg/dL POC Glucose (mg/dL) (70-110) mg/dL Plasma Lactic Acid Adrian (0.7-2.0) mmol/L Calcium 7.4 L (8.4-10.2) mg/dL Phosphorus (2.5-4.5) mg/dL Alkaline Phosphatase (38-126) U/L Total Protein 4.7 L (6.3-8.2) g/dL Albumin 2.3 L (3.5-5.0) g/dL Crossmatch See Detail 01/27/23 01/27/23 01/27/23 Range/Units 02:00 04:00 04:00 WBC 2.7 L (3.8-10.6) k/uL RBC 3.13 L (4.30-5.90) m/uL Hgb 7.7 L D (13.0-17.5) gm/dL Hct 24.3 L (39.0-53.0) % MCV 77.8 L D (80.0-100.0) fL MCH 24.7 L (25.0-35.0) pg MCHC (31.0-37.0) g/dL RDW 19.4 H (11.5-15.5) % Plt Count 134 L (150-450) k/uL Metamyelocytes # (Man) (0) k/uL PT (9.0-12.0) sec INR (<1.2) ABG pH (7.35-7.45) ABG pCO2 (35-45) mmHg ABG pO2 (83-108) mmHg ABG HCO3 (21-25) mmol/L ABG Total CO2 (19-24) mmol/L ABG O2 Saturation (94-97) % Chloride 112 H (98-107) mmol/L Carbon Dioxide 15 L (22-30) mmol/L BUN 45 H (9-20) mg/dL Creatinine 1.71 H (0.66-1.25) mg/dL Glucose (74-99) mg/dL POC Glucose (mg/dL) (70-110) mg/dL Plasma Lactic Acid Adrian 4.8 H* (0.7-2.0) mmol/L Calcium 6.5 L (8.4-10.2) mg/dL Phosphorus 4.6 H (2.5-4.5) mg/dL Alkaline Phosphatase 31 L (38-126) U/L Total Protein 3.9 L (6.3-8.2) g/dL Albumin 1.8 L (3.5-5.0) g/dL Crossmatch 01/27/23 01/27/23 01/27/23 Range/Units 04:03 06:06 06:27 WBC (3.8-10.6) k/uL RBC (4.30-5.90) m/uL Hgb (13.0-17.5) gm/dL Hct (39.0-53.0) % MCV (80.0-100.0) fL MCH (25.0-35.0) pg MCHC (31.0-37.0) g/dL RDW (11.5-15.5) % Plt Count (150-450) k/uL Metamyelocytes # (Man) (0) k/uL PT (9.0-12.0) sec INR (<1.2) ABG pH (7.35-7.45) ABG pCO2 30 L (35-45) mmHg ABG pO2 (83-108) mmHg ABG HCO3 17 L (21-25) mmol/L ABG Total CO2 18 L (19-24) mmol/L ABG O2 Saturation 98.2 H (94-97) % Chloride (98-107) mmol/L Carbon Dioxide (22-30) mmol/L BUN (9-20) mg/dL Creatinine (0.66-1.25) mg/dL Glucose (74-99) mg/dL POC Glucose (mg/dL) 54 L 142 H (70-110) mg/dL Plasma Lactic Acid Adrian (0.7-2.0) mmol/L Calcium (8.4-10.2) mg/dL Phosphorus (2.5-4.5) mg/dL Alkaline Phosphatase (38-126) U/L Total Protein (6.3-8.2) g/dL Albumin (3.5-5.0) g/dL Crossmatch 01/27/23 01/27/23 01/27/23 Range/Units 06:30 07:48 11:40 WBC (3.8-10.6) k/uL RBC 3.47 L (4.30-5.90) m/uL Hgb 8.9 L (13.0-17.5) gm/dL Hct 27.8 L (39.0-53.0) % MCV 79.9 L (80.0-100.0) fL MCH (25.0-35.0) pg MCHC (31.0-37.0) g/dL RDW 17.8 H (11.5-15.5) % Plt Count 122 L (150-450) k/uL Metamyelocytes # (Man) (0) k/uL PT 16.6 H (9.0-12.0) sec INR 1.7 H (<1.2) ABG pH (7.35-7.45) ABG pCO2 (35-45) mmHg ABG pO2 (83-108) mmHg ABG HCO3 (21-25) mmol/L ABG Total CO2 (19-24) mmol/L ABG O2 Saturation (94-97) % Chloride (98-107) mmol/L Carbon Dioxide (22-30) mmol/L BUN (9-20) mg/dL Creatinine (0.66-1.25) mg/dL Glucose (74-99) mg/dL POC Glucose (mg/dL) (70-110) mg/dL Plasma Lactic Acid Adrian 6.5 H* (0.7-2.0) mmol/L Calcium (8.4-10.2) mg/dL Phosphorus (2.5-4.5) mg/dL Alkaline Phosphatase (38-126) U/L Total Protein (6.3-8.2) g/dL Albumin (3.5-5.0) g/dL Crossmatch Microbiology - Last 24 Hours (Table) 01/26/23 19:00 Gram Stain - Preliminary Sputum 01/26/23 05:50 Blood Culture - Preliminary Blood 01/26/23 05:28 Blood Culture - Preliminary Blood
[2023-01-27] MEDS: INSULIN ASPART (NovoLOG) 100 UNIT/ML VIAL SQ SCH ×2 (17:03→19:36)
[2023-01-27] MEDS: MAGNESIUM SULFATE-D5W PMX 1 GM in DEXTROSE/WATER 1 100ML.BAG IVPB SCH ×2 (17:06→19:38)
[2023-01-27] MEDS: HYDROCORTISONE SUCCINATE 100 MG/2 ML VIAL IV SCH ×2 (17:36→23:42)
[2023-01-27] MEDS: AMIODARONE 450 MG in DEXTROSE 5% IN WATER 250 ML IV SCH ×2 (17:55)
[2023-01-27 18:03] LABS: Glucose,Whole Blood 79 mg/dL (70-110)
[2023-01-27 18:33] LABS: Anisocytosis Slight; HCT 28.8 % (39.0-53.0); HGB 9.3 gm/dL (13.0-17.5); Hypochromasia Marked; MCH 25.7 pg (25.0-35.0); MCHC 32.4 g/dL (31.0-37.0); MCV 79.3 fL (80.0-100.0); Mean Platelet Volume 10.9; Microcytosis Slight; Platelet Count 134 k/uL (150-450); Poikilocytosis Marked; RBC 3.63 m/uL (4.30-5.90); WBC 15.8 k/uL (3.8-10.6)
--- NOTE | 2023-01-27 21:40 | P.CONS ---
History of Present Illness - Reason for Consult Consult date: 01/27/23 Septic shock Requesting physician: Cecilio Garcia - Chief Complaint Syncopal episode x one day - History of Present Illness Patient is a 67-year-old male with a past medical history negative for atrial fibrillation diabetes mellitus hypertension PE seizure disorder and dementia patient was brought into the hospital yesterday morning for evaluation of a syncopal episode apparently patient was not oriented when he did have a syncopal episode [facility] staff checked his blood pressure and the patient was found to be hypotensive with a blood pressure in the 50s systolic EMS was called and the patient was brought into the hospital patient on presentation to the hospital was afebrile he did have low-grade fever this morning of 100.2 to 100.6 degrees following height patient was tachycardic did have a normal white count initially however white count is up to 15.8 today BUN/creatinine has been mildly elevated and lactic acid was elevated urine was negative patient did have a CT of abdominal pelvis findings suggestive for small bowel ischemia and or small bowel obstruction patient was evaluated by general surgery and was taken to the OR yesterday evening and patient status post active exploratory laparotomy with evidence of ischemic small intestine, intra-abdominal adhesions status post small bowel resection and jejunostomy patient is admitted to [facility] ICU on the vent and is currently on a multiple pressor support to maintain his blood pressure infectious disease was consulted for further management of antibiotic therapy most information has been obtained from the chart talking nursing staff the patient is currently breathing on the vent and cannot provide any history Review of Systems Positive points has been mentioned in HPI complete review could not be obtained because patient intubated on the vent Past Medical History Past Medical History: Atrial Fibrillation, Coronary Artery Disease (CAD), Dementia, Diabetes Mellitus, Hypertension, Liver Disease, Memory Impairment, Pulmonary Embolus (PE), Seizure Disorder, Skin Disorder Additional Past Medical History / Comment(s): PT SCRATCHES AND HAS SCRATCHES ON LEGS., DEMENTIA, HEPATITIS C-TREATED, UNKNOWN LAST SEIZURE., DIET CONTROLLED DIABETES, DIVERTICULOSIS, RIGHT HEMIPARESIS,CONSTIPATION,ENCEPHALOPATHY,GASTRIC ULCER, HX OF SBO WITH PARTIAL BOWEL RESECTION.,NONAMBULATORY,TRANSFERS WITH [employer]. 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 , HX OF BRAIN DAMAGE R/T DRUG ABUSE, abdominal hernia,rt hemiparesis History of Any Multi-Drug Resistant Organisms: ESBL, MRSA Year Discovered:: 04/02/17 MDRO Source:: sputum esbl, LT FOOT WOUND Past Surgical History: Adenoidectomy, Bowel Resection, Hernia Repair, Tonsillectomy Additional Past Surgical History / Comment(s): wound debridement to L FOOT, LYSIS OF ADHESIONS.PEG INSERTION & Removal, EGD, INCISIONAL HERNIA 11/2018 AT [facility]. SBO WITH PARTIAL BOWEL RESECTION (2017) Past Anesthesia/Blood Transfusion Reactions: No Reported Reaction Additional Past Anesthesia/Blood Transfusion Reaction / Comm: BROTHER- CINDY MADERA STATES NO PROBLEMS WITH ANESTHESIA AND NO FAMILY HX OF PROBLEMS WITH ANESTHESIA. Past Psychological History: Anxiety, Depression Additional Psychological History / Comment(s): Pt resides at [facility] since 2006. Smoking Status: Never smoker Past Alcohol Use History: None Reported Additional Past Alcohol Use History / Comment(s): Pt is a recovering alcoholic. Past Drug Use History: None Reported Additional Drug Use History / Comment(s): HX OF BRAIN DAMAGE R/T DRUG ABUSE - Past Family History Father Family Medical History: Dementia Additional Family Medical History / Comment(s): Father of alzheimer dementia at the age of 87yrs. Mother Family Medical History: Cancer Additional Family Medical History / Comment(s): Mother had breast cancer and had a cancerous tumor removed from outside her bladder. She at the age of 87yrs from lung cancer. Medications and Allergies Home Medications Medication Instructions Recorded Confirmed Type Levothyroxine Sodium [Synthroid] 50 mcg PO DAILY 07/08/14 02/06/23 History Artificial Tears-Hypromellose 1 drop RIGHT EYE BID@0500,2200 02/15/17 02/06/23 History [Artificial Tear Drops] Melatonin 3 mg PO HS 10/06/17 02/06/23 History Rivaroxaban [Xarelto] 20 mg PO DAILY@1600 10/06/17 02/06/23 History diazePAM 2 mg PO QID@07,11,16,20 10/06/17 02/06/23 History polyethylene glycoL 3350 [Miralax] 17 gm PO DAILY 11/13/18 02/06/23 History Tamsulosin [Flomax] 0.4 mg PO DAILY #5 cap 11/17/18 02/06/23 Rx Escitalopram [Lexapro] 5 mg PO DAILY 04/25/19 02/06/23 History Memantine [Namenda] 10 mg PO BID 11/28/20 02/06/23 History Omeprazole 20 mg PO HS 11/28/20 02/06/23 History Acetaminophen [Tylenol 8 Hour] 650 mg PO Q6H PRN 01/26/23 02/06/23 History Docusate [Colace] 100 mg PO BID 01/26/23 02/06/23 History Magnesium Hydroxide [Milk of 2,400 mg PO DAILY PRN 01/26/23 02/06/23 History Magnesia] Metoprolol Tartrate [Lopressor] 12.5 mg PO BID 01/26/23 02/06/23 History Sennosides [Senokot] 17.2 mg PO DAILY 01/26/23 02/06/23 History Sodium Chloride [[place]] 2 spray EA NOSTRIL Q3H PRN 01/26/23 02/06/23 History Transderm Scop 1.5mg 1 patch TRANSDERM Q72H 01/26/23 02/06/23 History polyethylene glycoL 3350 [Miralax] 17 gm PO DAILY PRN 01/26/23 02/06/23 History Allergies Allergy/AdvReac Type Severity Reaction Status Date / Time No Known Allergies Allergy Verified 02/06/23 18:18 Physical Exam Vitals: Vital Signs Temp Pulse Resp BP Pulse Ox FiO2 01/27/23 09:00 110 H 18 97/61 93 L 40 01/27/23 08:45 111 H 20 01/27/23 08:30 109 H 01/27/23 08:15 111 H 01/27/23 08:14 40 01/27/23 08:12 98.1 F 111 H 18 87/48 01/27/23 08:00 97.8 F 108 H 24 93 L 40 01/27/23 07:45 111 H 01/27/23 07:30 109 H 01/27/23 07:15 108 H 97/61 01/27/23 07:05 97.8 F 110 H 26 H 85/48 01/27/23 07:00 111 H 14 97/61 01/27/23 06:45 114 H 26 H 97/61 01/27/23 06:30 114 H 27 H 97/61 01/27/23 06:15 113 H 22 97/01/27/23 06:00 113 H 19 97/61 01/27/23 05:52 99.9 F H 112 H 20 82/51 97 01/27/23 05:45 112 H 26 H 97/61 01/27/23 05:32 99.9 F H 112 H 28 H 99/49 96 01/27/23 05:30 115 H 29 H 79/47 01/27/23 05:15 114 H 27 H 01/27/23 05:00 122 H 25 H 79/47 01/27/23 04:45 112 H 26 H 79/47 01/27/23 04:30 116 H 20 91/60 98 01/27/23 04:15 115 H 25 H 100 01/27/23 04:12 40 01/27/23 04:00 99.7 F H 115 H 23 86 L 40 01/27/23 03:45 116 H 29 H 01/27/23 03:30 117 H 27 H 01/27/23 03:22 99.9 F H 115 H 29 H 71/45 01/27/23 03:15 117 H 27 H 99 01/27/23 03:00 117 H 30 H 91/64 99 01/27/23 02:45 118 H 39 H 91/64 98 01/27/23 02:30 117 H 33 H 91/64 98 01/27/23 02:23 115 H 29 H 91/64 99 01/27/23 02:00 112 H 32 H 91/64 99 01/27/23 01:45 111 H 30 H 91/64 92 L 01/27/23 01:39 99.3 F 110 H 27 H 91/58 90 L 01/27/23 01:30 107 H 30 H 96/64 96 01/27/23 01:15 103 H 31 H 96/64 97 01/27/23 01:06 99.0 F 103 H 30 H 105/57 97 01/27/23 01:00 101 H 26 H 96/64 97 01/27/23 00:45 98 22 96/64 99 01/27/23 00:43 40 01/27/23 00:30 97 18 96/64 99 01/27/23 00:15 98 22 96/64 99 01/27/23 00:04 98.4 F 98 20 122/61 99 01/27/23 00:00 99.0 F 98 20 96/64 100 40 01/26/23 23:45 100 22 96/64 100 01/26/23 23:44 98.2 F 100 22 111/57 99 01/26/23 23:30 101 H 24 96/64 100 01/26/23 23:15 99 21 96/64 99 01/26/23 23:05 98 20 96/64 100 01/26/23 23:00 99 20 96/64 98 01/26/23 22:45 93 18 96/64 99 01/26/23 22:30 96 22 96/64 99 01/26/23 22:15 98 22 96/64 97 01/26/23 22:00 98 22 96/64 100 01/26/23 21:55 40 01/26/23 21:45 99 31 H 01/26/23 21:30 105 H 24 80/55 01/26/23 21:15 103 H 26 H 95/70 01/26/23 21:11 40 01/26/23 21:00 101 H 24 112/73 100 01/26/23 20:45 101 H 26 H 112/73 100 01/26/23 20:30 99 24 111/71 100 01/26/23 20:10 98 23 112/70 100 01/26/23 20:00 97.5 F L 99 19 115/68 100 100 01/26/23 19:50 98 17 115/68 01/26/23 19:40 98 16 128/71 01/26/23 19:30 98 16 128/71 100 01/26/23 19:20 98 16 126/67 01/26/23 19:10 97 16 126/67 100 01/26/23 19:00 97.3 F L 97 16 118/22 100 100 01/26/23 18:50 98 100 01/26/23 18:41 100 01/26/23 16:30 104 H 22 86/49 01/26/23 16:00 98.8 F 106 H 26 H 88/37 85 L 01/26/23 15:30 112 H 25 H 86/61 98 01/26/23 15:00 109 H 26 H 107/61 01/26/23 14:30 104 H 31 H 96/68 01/26/23 14:00 107 H 30 H 101/70 01/26/23 13:30 105 H 27 H 94/56 01/26/23 13:00 99 18 124/102 01/26/23 12:30 98 32 H 75/48 01/26/23 12:00 97.5 F L 97 28 H 102/52 92 L 100 01/26/23 11:30 93 24 92/41 89 L 01/26/23 11:00 97.5 F L 95 24 73/53 85 L 100 01/26/23 10:30 97.7 F 91 22 95/41 97 01/26/23 10:16 89 22 94/50 96 01/26/23 10:10 88 22 89/46 97 Intake and Output 01/26/23 01/27/23 01/27/23 22:59 06:59 14:59 Intake Total 3015.177 2810 706 Output Total 815 1240 360 Balance 2200.177 1570 346 Intake: IV 1910 1040 396 Dextrose 5% in Water 1, 525 600 225 000 ml @ 75 mls/hr IV . [id number] KALE with Sodium Bicarb (1 Meq/ml) 150 ml Rx#:[id number] Pressure Bag (0.9 Sodium 6 Chloride) Sodium Chloride 0.9% 1, 385 440 165 000 ml @ 55 mls/hr IV . [id number] [facility] Rx#:[id number] Intake, IV Titration 5139.950 9770 Amount Norepinephrine 32 mg In 57.678 Sodium Chloride 0.9% 218 ml @ 0.03 MCG/KG/MIN 0. 836 mls/hr IV .Q24H [facility] Rx#:[id number] Sodium Chloride 0.9% 1, 1000 000 ml @ 999 mls/hr IV . Q1H1 [facility] Rx#:[id number] Sodium Chloride 0.9% 1, 1000 000 ml @ 999 mls/hr IV . [facility] Rx#:[id number] Vasopressin 60 unit In 28.84 Sodium Chloride 0.9% 150 ml @ 0.03 UNITS/MIN 4.59 mls/hr IV .Q24H [facility] Rx#: [id number] propofoL 1,000 mg In 18.659 Empty Bag 1 bag @ 15 MCG/ KG/MIN 5.348 mls/hr IV . [id number] [facility] Rx#:[id number] Blood Product 620 310 Rc As-1 Unit 0 310 [id number] Rc As-1 Unit 310 [id number] Rc As-1 Unit 0 [id number] Rc As-1 Unit 310 [id number] Other 150 Rc As-1 Unit 150 [id number] Output: Drainage 370 300 250 Left Abdomen 370 300 250 Urine 395 940 110 Estimated Blood Loss 50 Other: Voiding Method Indwelling Catheter Indwelling Catheter Weight 64.5 kg ABP, PAP, CO, CI - Last 8 Hours Arterial Blood Pressure 84/48 Arterial Blood Pressure 79/49 Arterial Blood Pressure 85/46 Arterial Blood Pressure 75/48 Arterial Blood Pressure 68/44 Arterial Blood Pressure 72/46 Arterial Blood Pressure 74/45 Arterial Blood Pressure 74/47 Arterial Blood Pressure 79/49 Arterial Blood Pressure 87/45 Arterial Blood Pressure 97/50 Arterial Blood Pressure 75/48 Arterial Blood Pressure 89/47 Arterial Blood Pressure 104/51 Arterial Blood Pressure 72/44 Arterial Blood Pressure 54/36 Arterial Blood Pressure 63/43 Arterial Blood Pressure 85/47 Arterial Blood Pressure 89/49 Arterial Blood Pressure 85/49 Arterial Blood Pressure 70/47 Arterial Blood Pressure 72/48 Arterial Blood Pressure 80/52 Arterial Blood Pressure 81/56 Arterial Blood Pressure 84/55 GENERAL DESCRIPTION: Elderly male intubated on the vent HEENT: Shows Pallor , no scleral icterus. Oral mucous membrane is dry. NECK: Trachea central, no thyromegaly. LUNGS: Unlabored breathing. Decreased breath sounds at the base HEART: S1, S2, regular rate and rhythm. No loud murmur ABDOMEN: Soft, no tenderness , guarding or rigidity, no organomegaly EXTREMITIES: No edema of feet. SKIN: No rash, no masses palpable. NEUROLOGICAL: The patient is sedated on the vent Results CBC & Chem 7: 02/06/23 11:55 02/06/23 04:44 Labs: Abnormal Lab Results - Last 24 Hours (Table) 01/26/23 01/26/23 01/26/23 Range/Units 10:15 13:20 19:48 WBC (3.8-10.6) k/uL RBC (4.30-5.90) m/uL Hgb (13.0-17.5) gm/dL Hct (39.0-53.0) % MCV (80.0-100.0) fL MCH (25.0-35.0) pg MCHC (31.0-37.0) g/dL RDW (11.5-15.5) % Plt Count (150-450) k/uL Metamyelocytes # (Man) (0) k/uL PT (9.0-12.0) sec INR (<1.2) ABG pH 7.29 L (7.35-7.45) ABG pCO2 (35-45) mmHg ABG pO2 >400 H (83-108) mmHg ABG HCO3 18 L (21-25) mmol/L ABG Total CO2 (19-24) mmol/L ABG O2 Saturation 99.6 H (94-97) % Chloride (98-107) mmol/L Carbon Dioxide (22-30) mmol/L BUN (9-20) mg/dL Creatinine (0.66-1.25) mg/dL Glucose (74-99) mg/dL POC Glucose (mg/dL) (70-110) mg/dL Plasma Lactic Acid Adrian 6.5 H* 6.4 H* (0.7-2.0) mmol/L Calcium (8.4-10.2) mg/dL Phosphorus (2.5-4.5) mg/dL Alkaline Phosphatase (38-126) U/L Total Protein (6.3-8.2) g/dL Albumin (3.5-5.0) g/dL Crossmatch 01/26/23 01/26/23 01/26/23 Range/Units 20:08 21:18 21:18 WBC (3.8-10.6) k/uL RBC 2.88 L (4.30-5.90) m/uL Hgb 6.1 L* D (13.0-17.5) gm/dL Hct 20.4 L (39.0-53.0) % MCV 71.0 L (80.0-100.0) fL MCH 21.3 L (25.0-35.0) pg MCHC 30.0 L (31.0-37.0) g/dL RDW 16.6 H (11.5-15.5) % Plt Count (150-450) k/uL Metamyelocytes # (Man) 0.53 H (0) k/uL PT (9.0-12.0) sec INR (<1.2) ABG pH (7.35-7.45) ABG pCO2 (35-45) mmHg ABG pO2 (83-108) mmHg ABG HCO3 (21-25) mmol/L ABG Total CO2 (19-24) mmol/L ABG O2 Saturation (94-97) % Chloride (98-107) mmol/L Carbon Dioxide (22-30) mmol/L BUN (9-20) mg/dL Creatinine (0.66-1.25) mg/dL Glucose (74-99) mg/dL POC Glucose (mg/dL) 126 H (70-110) mg/dL Plasma Lactic Acid Adrian 4.8 H* (0.7-2.0) mmol/L Calcium (8.4-10.2) mg/dL Phosphorus (2.5-4.5) mg/dL Alkaline Phosphatase (38-126) U/L Total Protein (6.3-8.2) g/dL Albumin (3.5-5.0) g/dL Crossmatch 01/26/23 01/26/23 01/27/23 Range/Units 21:18 21:18 02:00 WBC (3.8-10.6) k/uL RBC (4.30-5.90) m/uL Hgb (13.0-17.5) gm/dL Hct (39.0-53.0) % MCV (80.0-100.0) fL MCH (25.0-35.0) pg MCHC (31.0-37.0) g/dL RDW (11.5-15.5) % Plt Count (150-450) k/uL Metamyelocytes # (Man) (0) k/uL PT (9.0-12.0) sec INR (<1.2) ABG pH (7.35-7.45) ABG pCO2 (35-45) mmHg ABG pO2 (83-108) mmHg ABG HCO3 (21-25) mmol/L ABG Total CO2 (19-24) mmol/L ABG O2 Saturation (94-97) % Chloride (98-107) mmol/L Carbon Dioxide 16 L (22-30) mmol/L BUN 46 H (9-20) mg/dL Creatinine 2.23 H (0.66-1.25) mg/dL Glucose 119 H (74-99) mg/dL POC Glucose (mg/dL) (70-110) mg/dL Plasma Lactic Acid Adrian 4.8 H* (0.7-2.0) mmol/L Calcium 7.4 L (8.4-10.2) mg/dL Phosphorus (2.5-4.5) mg/dL Alkaline Phosphatase (38-126) U/L Total Protein 4.7 L (6.3-8.2) g/dL Albumin 2.3 L (3.5-5.0) g/dL Crossmatch See Detail 01/27/23 01/27/23 01/27/23 Range/Units 04:00 04:00 04:03 WBC 2.7 L (3.8-10.6) k/uL RBC 3.13 L (4.30-5.90) m/uL Hgb 7.7 L D (13.0-17.5) gm/dL Hct 24.3 L (39.0-53.0) % MCV 77.8 L D (80.0-100.0) fL MCH 24.7 L (25.0-35.0) pg MCHC (31.0-37.0) g/dL RDW 19.4 H (11.5-15.5) % Plt Count 134 L (150-450) k/uL Metamyelocytes # (Man) (0) k/uL PT (9.0-12.0) sec INR (<1.2) ABG pH (7.35-7.45) ABG pCO2 30 L (35-45) mmHg ABG pO2 (83-108) mmHg ABG HCO3 17 L (21-25) mmol/L ABG Total CO2 18 L (19-24) mmol/L ABG O2 Saturation 98.2 H (94-97) % Chloride 112 H (98-107) mmol/L Carbon Dioxide 15 L (22-30) mmol/L BUN 45 H (9-20) mg/dL Creatinine 1.71 H (0.66-1.25) mg/dL Glucose (74-99) mg/dL POC Glucose (mg/dL) (70-110) mg/dL Plasma Lactic Acid Adrian (0.7-2.0) mmol/L Calcium 6.5 L (8.4-10.2) mg/dL Phosphorus 4.6 H (2.5-4.5) mg/dL Alkaline Phosphatase 31 L (38-126) U/L Total Protein 3.9 L (6.3-8.2) g/dL Albumin 1.8 L (3.5-5.0) g/dL Crossmatch 01/27/23 01/27/23 01/27/23 Range/Units 06:06 06:27 06:30 WBC (3.8-10.6) k/uL RBC (4.30-5.90) m/uL Hgb (13.0-17.5) gm/dL Hct (39.0-53.0) % MCV (80.0-100.0) fL MCH (25.0-35.0) pg MCHC (31.0-37.0) g/dL RDW (11.5-15.5) % Plt Count (150-450) k/uL Metamyelocytes # (Man) (0) k/uL PT (9.0-12.0) sec INR (<1.2) ABG pH (7.35-7.45) ABG pCO2 (35-45) mmHg ABG pO2 (83-108) mmHg ABG HCO3 (21-25) mmol/L ABG Total CO2 (19-24) mmol/L ABG O2 Saturation (94-97) % Chloride (98-107) mmol/L Carbon Dioxide (22-30) mmol/L BUN (9-20) mg/dL Creatinine (0.66-1.25) mg/dL Glucose (74-99) mg/dL POC Glucose (mg/dL) 54 L 142 H (70-110) mg/dL Plasma Lactic Acid Adrian 6.5 H* (0.7-2.0) mmol/L Calcium (8.4-10.2) mg/dL Phosphorus (2.5-4.5) mg/dL Alkaline Phosphatase (38-126) U/L Total Protein (6.3-8.2) g/dL Albumin (3.5-5.0) g/dL Crossmatch 01/27/23 Range/Units 07:48 WBC (3.8-10.6) k/uL RBC (4.30-5.90) m/uL Hgb (13.0-17.5) gm/dL Hct (39.0-53.0) % MCV (80.0-100.0) fL MCH (25.0-35.0) pg MCHC (31.0-37.0) g/dL RDW (11.5-15.5) % Plt Count (150-450) k/uL Metamyelocytes # (Man) (0) k/uL PT 16.6 H (9.0-12.0) sec INR 1.7 H (<1.2) ABG pH (7.35-7.45) ABG pCO2 (35-45) mmHg ABG pO2 (83-108) mmHg ABG HCO3 (21-25) mmol/L ABG Total CO2 (19-24) mmol/L ABG O2 Saturation (94-97) % Chloride (98-107) mmol/L Carbon Dioxide (22-30) mmol/L BUN (9-20) mg/dL Creatinine (0.66-1.25) mg/dL Glucose (74-99) mg/dL POC Glucose (mg/dL) (70-110) mg/dL Plasma Lactic Acid Adrian (0.7-2.0) mmol/L Calcium (8.4-10.2) mg/dL Phosphorus (2.5-4.5) mg/dL Alkaline Phosphatase (38-126) U/L Total Protein (6.3-8.2) g/dL Albumin (3.5-5.0) g/dL Crossmatch Assessment and Plan (1) Ischemic bowel disease Status: Acute Priority: High Code(s): K55.9 - VASCULAR DISORDER OF INTESTINE, UNSPECIFIED SNOMED Code(s): 95474357 (2) Septic shock Status: Acute Code(s): A41.9 - SEPSIS, UNSPECIFIED ORGANISM; R65.21 - SEVERE SEPSIS WITH SEPTIC SHOCK SNOMED Code(s): 97343141 Plan: 1patient present to hospital with sepsis/septic shock in this patient with hyp otension fever elevated white count tachycardia source is abdominal pain in this patient noticed to have small bowel ischemia s/p laparotomy with small bowel resection and jejunostomy, we will need to cover for the enteric gram-negative the likely pathogen for this episode of sepsis/septic shock. 2patient will be continued on Zosyn 3.7 g/h should provide adequate antibiotic coverage at this point. 3IV fluid and pressor support per manager water We will follow on clinical condition and cultures to further adjust medication if needed Thank you for this consultation we will follow the patient along with you Dictation was produced using [employer] dictation software. please excuse any grammatical, word or spelling errors. Time with Patient: Greater than 30
[2023-01-27 22:11] LABS: Anisocytosis Slight; HCT 29.4 % (39.0-53.0); HGB 9.6 gm/dL (13.0-17.5); Hypochromasia Marked; MCH 25.5 pg (25.0-35.0); MCHC 32.6 g/dL (31.0-37.0); MCV 78.4 fL (80.0-100.0); Mean Platelet Volume 9.9; Microcytosis Slight; Platelet Count 138 k/uL (150-450); Poikilocytosis Moderate; RBC 3.75 m/uL (4.30-5.90); RDW 18.6 % (11.5-15.5); WBC 19.8 k/uL (3.8-10.6)
[2023-01-27 22:22] LABS: INR 1.7 (<1.2); Partial Thromboplastin Time 38.7 sec (22.0-30.0); Prothrombin Time 17.3 sec (9.0-12.0)
[2023-01-27 23:11] LABS: Glucose,Whole Blood 80 mg/dL (70-110)
[2023-01-28] MEDS: INSULIN ASPART (NovoLOG) 100 UNIT/ML VIAL SQ SCH ×4 (01:33→18:39)
[2023-01-28] MEDS: SODIUM CHLORIDE 0.9% 1,000 ML IV SCH ×3 (01:35→21:26)
[2023-01-28] MEDS: VASOPRESSIN 60 UNIT in SODIUM CHLORIDE 0.9% 150 ML IV SCH ×3 (02:22→18:38)
[2023-01-28 04:19] LABS: Anisocytosis Slight; HCT 28.3 % (39.0-53.0); HGB 9.4 gm/dL (13.0-17.5); Hypochromasia Marked; MCH 25.9 pg (25.0-35.0); MCHC 33.2 g/dL (31.0-37.0); MCV 77.8 fL (80.0-100.0); Microcytosis Slight; Platelet Count 114 k/uL (150-450); Poikilocytosis Moderate; RBC 3.64 m/uL (4.30-5.90); RDW 18.8 % (11.5-15.5); WBC 24.4 k/uL (3.8-10.6)
[2023-01-28 04:24] LABS: INR 1.7 (<1.2); Prothrombin Time 16.5 sec (9.0-12.0)
[2023-01-28 04:26] LABS: AST 591 U/L (17-59); African American GFR (CKD) 62 (>60 ml/min/1.73 sqM); Alkaline Phosphatase 43 U/L (38-126); Anion Gap 13 mmol/L; Blood Urea Nitrogen 31 mg/dL (9-20); Calcium 6.9 mg/dL (8.4-10.2); Carbon Dioxide 17 mmol/L (22-30); Chloride 107 mmol/L (98-107); Glucose 85 mg/dL (74-99); Magnesium 2.2 mg/dL (1.6-2.3); Non-African American GFR(CKD) 53 (>60 ml/min/1.73 sqM); Phosphorus 4.3 mg/dL (2.5-4.5); Potassium 4.2 mmol/L (3.5-5.1); Sodium 137 mmol/L (137-145); Total Bilirubin 1.7 mg/dL (0.2-1.3); Total Protein 4.2 g/dL (6.3-8.2)
[2023-01-28 04:33] LABS: ALT 449 U/L (4-49)
[2023-01-28 05:06] LABS: Glucose,Whole Blood 85 mg/dL (70-110)
[2023-01-28] MEDS: PIPERACILLIN-TAZOBACTAM 3.375 GM in SODIUM CHLORIDE 0.9% 100 ML IVPB SCH ×3 (05:34→21:24)
[2023-01-28] MEDS: ARTIFICIAL TEARS-HYPROMELLOSE DROPS 15 ML BTL RIGHT EYE SCH ×2 (05:35→21:26)
[2023-01-28 05:49] LABS: ABG Base Excess -4.7 mmol/L; ABG HCO3 19 mmol/L (21-25); ABG Oxygen Saturation 98.3 % (94-97); ABG PCO2 32 mmHg (35-45); ABG PO2 129 mmHg (83-108); ABG TCO2 20 mmol/L (19-24); Allen Test Performed? Yes
[2023-01-28] MEDS: AMIODARONE 450 MG in DEXTROSE 5% IN WATER 250 ML IV SCH ×6 (07:02→23:08)
--- NOTE | 2023-01-28 07:51 | XR ---
EXAMINATION TYPE: XR chest 1V portable DATE OF EXAM: 01/28/2023 COMPARISON: 01/27/2023 HISTORY: SOB, Follow Up FINDINGS: Indwelling tubes and catheters are unchanged. No change in basilar atelectasis or underlying infiltrates. Stable appearance of the cardio-mediastinal structures at this time. IMPRESSION: 1. Stable portable chest. Clinical correlation and follow up until resolution is recommended.
[2023-01-28] MEDS: HYDROCORTISONE SUCCINATE 100 MG/2 ML VIAL IV SCH ×3 (08:43→21:25)
[2023-01-28] MEDS: PANTOPRAZOLE 40 MG/10 ML VIAL IVP SCH ×2 (08:43→21:25)
[2023-01-28] MEDS: CHLORHEXIDINE GLUCONATE 15 ML CUP MUCOUS MEM SCH ×2 (08:43→21:25)
--- NOTE | 2023-01-28 09:19 | CONS ---
CONSULTATION CHIEF COMPLAINT: Atrial fibrillation with rapid ventricular rate. HISTORY OF PRESENT ILLNESS: New is a 67-year-old gentleman with history of paroxysmal atrial fibrillation, hypothyroidism, who presented to hospital with acute ischemic bowel and underwent surgery for the same. Currently intubated on vent, hypotensive, and critically ill, developed atrial fibrillation with poorly controlled ventricular rate, for which we have been consulted. I saw the patient on 01/27/2023, around 5:30 p.m. The patient is hemodynamically unstable and is currently on intravenous amiodarone, and Levophed. Heart rates were still in the 110s to 120s. The plan is to continue with it and we will use the Cardizem as tolerated. PAST MEDICAL HISTORY: Significant for paroxysmal atrial fibrillation, hypothyroidism. MEDICATIONS: Medications at home included: 1. Flomax. 2. Melatonin. 3. Synthroid. 4. Lexapro. 5. Senokot. 6. Xarelto. 7. Namenda. 8. Milk of magnesia. ALLERGIES: No known drug allergies. FAMILY HISTORY: Negative for premature coronary artery disease. SOCIAL HISTORY: Unable to obtain from the patient who is intubated and on vent REVIEW OF SYSTEMS: Unable to obtain from the patient who is intubated and on vent. PHYSICAL EXAMINATION: VITAL SIGNS: Heart rate was 110 to 120 beats per minute. Blood pressure 100/60. GENERAL: Mechanically ventilated. CHEST: Bilateral rhonchi. HEART: First and second heart sounds. Irregular rhythm. No gallop. Has a systolic murmur at the left lower sternal border. ABDOMEN: Soft. EXTREMITIES: Did not reveal any edema. Peripheral pulses are palpable, but diminished. LABORATORY DATA: Show that the hemoglobin is 9.3, platelet count is 134, potassium is 4.2, creatinine is 1.7. ASSESSMENT AND PLAN: Persistent atrial fibrillation with poorly controlled ventricular rate. I will continue the IV amiodarone with the hope that he might convert to sinus rhythm. Prognosis guarded. MMODL / IJN: [id number] /
[2023-01-28] MEDS ORDERED: SODIUM CHLORIDE 0.9% 1,000 ML IV ONE (09:29)
[2023-01-28] MEDS: DEXTROSE 5% IN WATER 1,000 ML with SODIUM BICARB (1 MEQ/ML) 150 ML IV SCH (09:40)
[2023-01-28] MEDS: HYDROmorphone 0.5 MG/0.5 ML SYRINGE IVP PRN ×3 (10:24→21:52)
--- NOTE | 2023-01-28 10:49 | CDI ---
Documentation Clarification Form Date: 01/28/2023 10:13:07 AM From: Paulina Coronado RN CCDS Phone: [phone] Admit Date: 01/26/2023 08:37:00 AM Patient Name: New Mendoza Visit Number: [id number] Discharge Date: ATTENTION: The Clinical Documentation Specialists (CDI) and [facility] Coding Staff appreciate your assistance in clarifying documentation. Please respond to the clarification below the line at the bottom and electronically sign. The CDI & [facility] Coding staff will review the response and follow-up if needed. Please note: Queries are made part of the Legal Health Record. If you have any questions, please contact the author of this message via ITS. Dr. Rona Soto Coccyx Deep tissue injury is documented by Nursing in the Pressure injury assessment, . Based on this information and the findings below, is there an additional diagnosis that is clinically appropriate for this patient? History/Risk Factors: 67 year old male presented to the ED with abdominal pain for three months that has increased over the last three days with shortness of breath. Medical History: HTN, Cirrhosis, Encephalopathy, Abdominal hernia and constipation. 01/26, H&P. Clinical Indicators: Location: Coccyx Wound description: Deep Tissue injury, Purple coccyx Treatment: Turn Q2H; Absorbant underpad, Checking hourly, Specialty Bed Is there an additional diagnosis that is clinically appropriate for this patient? [ X] Coccyx Deep tissue injury POA [ ] Coccyx Deep tissue injury Not POA [ ] Other condition, please specify [ ] Unable to determine Clinical Definitions: Stage 1 Pressure Ulcer: intact skin, non-blanching redness of local area Stage 2 Pressure Ulcer: Partial thickness, loss of dermis, pink wound bed Stage 3 Pressure Ulcer: Full thickness tissue loss Stage 4 Pressure Ulcer: Full thickness tissue loss with exposed bone, tendon, or muscle. Unstageable pressure ulcer: Full thickness tissue loss in which the base of the ulcer is covered by slough (yellow, ventura, hernandez, green or brown) and/or eschar (ventura, brown or black) in the wound bed. (Template Last Revised: July 2020) MTDD
--- NOTE | 2023-01-28 11:08 | CDI ---
Documentation Clarification Form Date: 01/28/2023 10:51:49 AM From: Paulina Coronado RN CCDS Phone: [phone] Admit Date: 01/26/2023 08:37:00 AM Patient Name: New Mendoza Visit Number: [id number] Discharge Date: ATTENTION: The Clinical Documentation Specialists (CDI) and [facility] Coding Staff appreciate your assistance in clarifying documentation. Please respond to the clarification below the line at the bottom and electronically sign. The [facility] & [facility] Coding staff will review the response and follow-up if needed. Please note: Queries are made part of the Legal Health Record. If you have any questions, please contact the author of this message via ITS. Dr. Rona Rodriguez Patient has a documented BMI of 18.7, 01/27, Dietitian consult. Additional clarification is requested. History/Risk Factors: 67-year-old male presented with abdominal pain for three months, it has worsened the past three days. Medical History: HTN, DM, Encephalopathy, Abdominal hernia, constipation and bowel resection. 01/26, H&P. Clinical Indicators: NPO, Deep tissue pressure injury, Admitting Diagnosis: Sepsis with Septic Shock. Patients weight is 64.5kg Patients height is 6ft 1in Calculated BMI is 18.7 Dietary Consult: Inadequate energy intake. Treatments: TPN to be initiated order written 01/27, Daily monitoring of TPN panel and labs. Dietary Consult: See above Please clarify, is there is an additional diagnosis that is clinically appropriate for this patient? [ ] Malnutrition, (further specify severity and type) [ ] Other, please specify [ ] Unable to determine (Template Last Revised: June 2020) TPN ordered for short gut not malnutrition MTDD
[2023-01-28 11:27] LABS: Glucose,Whole Blood 77 mg/dL (70-110)
--- NOTE | 2023-01-28 11:51 | CA ---
Transthoracic Echo Report Name: New Mendoza Age: 67 Gender: M : 1955 Exam Date: 01/27/2023 18:20 Exam Location: [facility] Ht (in): 73 Wt (lb): 142 Ordering Physician: Don Godoy MD ([id number]) Attending/Referring Phys: Jayne BACA Dental Laboratory Manager Uma Howard RDCS Procedure CPT: Indications: Assess left ventricular function Cardiac Hx: Technical Quality: Fair Contrast 1: Total Dose (mL): Contrast 2: Total Dose (mL): MEASUREMENTS (Male / Female) Normal Values 2D ECHO LV Diastolic Diameter PLAX 4.0 cm 4.2 - 5.9 / 3.9 - 5.3 cm LV Systolic Diameter PLAX 3.2 cm IVS Diastolic Thickness 1.1 cm 0.6 - 1.0 / 0.6 - 0.9 cm LVPW Diastolic Thickness 1.0 cm 0.6 - 1.0 / 0.6 - 0.9 cm LV Relative Wall Thickness 0.5 RV Internal Dim ED PLAX 3.9 cm LVOT Diameter 2.4 cm LA Systolic Diameter LX 3.3 cm 3.0 - 4.0 / 2.7 - 3.8 cm LV Diastolic Volume MOD 4C 70.0 cm??? LV Systolic Volume MOD 4C 37.0 cm??? LV Ejection Fraction MOD 4C 47.1 % LV Cardiac Index MOD 4C 2517.7 cm???/min???m??? LV Diastolic Length 4C 7.3 cm LV Systolic Length 4C 7.1 cm M-MODE Aortic Root Diameter MM 3.5 cm MV E Point Septal Separation 0.4 cm AV Cusp Separation MM 1.9 cm DOPPLER AV Peak Velocity 95.9 cm/s AV Peak Gradient 3.7 mmHg MV Area PHT 6.4 cm??? MV Deceleration Time 106.7 ms TR Peak Velocity 239.8 cm/s TR Peak Gradient 23.0 mmHg Right Ventricular Systolic Press 40.0 mmHg FINDINGS Left Ventricle Left ventricular ejection fraction is estimated at 35-40 %. Left ventricular cavity size normal. Mildly increased septal wall thickness. Right Ventricle Moderate to severe right ventricular dilatation. Mild pulmonary hypertension. Right ventricular systolic pressure estimated at 40 mm hg.severely reduced right ventricular global systolic function. Right Atrium Normal right atrial size. Left Atrium Normal left atrial size. Mitral Valve Mild mitral regurgitation. Mild mitral regurgitation. Aortic Valve Trileaflet aortic valve. No aortic valve stenosis or regurgitation. Tricuspid Valve Structurally normal tricuspid valve. Mild tricuspid regurgitation. Pulmonic Valve Structurally normal pulmonic valve. Pericardium Minimal pericardial effusion Aorta Normal size aortic root and proximal ascending aorta. CONCLUSIONS Left ventricular ejection fraction 35-40% with global hypokinesis Mildly increased left ventricular wall thickness Moderate to severe right ventricular dilation with severely reduced right ventricular function. RVSP 40 Atypical septal motion, may be consistent with RV pressure overload versus constrictive pericarditis Mild mitral regurgitation Mild tricuspid regurgitation Previewed by: Dr. Gene Madera DO (Electronically Signed) Final Date: 28 January 2023 11:50
[2023-01-28] MEDS ORDERED: MVI, ADULT NO.4 WITH VIT K 10 ML, TRACE (CONC-1ML/DOSE) 1 ML in AMINO ACID 5%-D15W+LYTE... IV SCH ×3 (12:00)
--- NOTE | 2023-01-28 12:06 | P.PN ---
Subjective Progress Note Date: 01/28/23 CHIEF COMPLAINT: Abdominal pain HISTORY OF PRESENT ILLNESS: Patient is in the ICU on mechanical ventilation. He is postop day #2 status post exploratory laparotomy with small bowel resection and jejunostomy for ischemic small intestine and intra-abdominal adhesions. They're coming down on pressure support. Patient is on minimal sedation. He has been in atrial flutter with a heart rate in the 130s on he is on amiodarone cardiology is following. Patient has had low-grade temps through the night. White count did go up from 15-24. Patient has received another liter of fluid. NG tube with 300 mL bilious output. Patient is having good urine output. WBC 24.4 Hgb 9.4 platelets 114 LFTs elevated PHYSICAL EXAM: VITAL SIGNS: Reviewed. GENERAL: Well-developed in no acute distress. HEENT: No sclera icterus. Extraocular movements grossly intact. Moist buccal mucosa. Head is atraumatic, normocephalic. ABDOMEN: Soft. Nondistended. Midline incisional dressing clean dry and intact. Jejunostomy on the left with dark greenish output. Stoma dusky NEUROLOGIC: intubated and on mild sedation ASSESSMENT: 1. Ischemic small intestine and intra-abdominal adhesions status post exploratory laparotomy with small bowel resection and jejunostomy PLAN: -Continue ICU management -Continue supportive care -Patient will require lifelong TPN -Okay to start TPN -CODE STATUS was changed to DO NOT RESUSCITATE Physician Administrative Representative note has been reviewed by physician. Signing provider agrees with the documented findings, assessment, and plan of care. I have personally seen and examined the patient, reviewed the MEDICAL TECHNICIANS /PAs history, exam and MDM and agree with the assessment and plan as written. Based on total visit time, I have performed more than 50% of the visit. As above: Patient clinically improving. Family is interested in continuing supportive care for now. Pressor requirements are decreased. Continue antibiotics. Agree with plans for starting TPN. We'll follow. Objective - Vital Signs Vital signs: Vital Signs Temp 100.2 F H 01/28/23 08:00 Pulse 135 H 01/28/23 11:00 Resp 23 01/28/23 11:00 BP 113/73 01/28/23 11:00 Pulse Ox 99 01/28/23 11:00 FiO2 35 01/28/23 11:57 Intake & Output 0901/28/23 01/28/23 18:59 06:59 18:59 Intake Total 3491.166 2285.213 1145.676 Output Total 1210 1630 1070 Balance 2281.166 655.213 75.676 Weight 64.5 kg 66.2 kg Intake: IV 2593 1896 655 Dextrose 5% in Water 1, 900 900 275 000 ml @ 25 mls/hr IV . Q24H [facility] with Sodium Bicarb (1 Meq/ml) 150 ml Rx#:[id number] Magnesium Sulfate-D5w Pmx 200 1 gm In Dextrose/Water 1 100ml.bag @ 100 mls/hr IVPB Q1H [facility] Rx#: [id number] Piperacillin-Tazobactam 3 100 .375 gm In Sodium Chloride 0.9% 100 ml @ 25 mls/hr IVPB Q8H [facility] Rx#: [id number] Pressure Bag (0.9 Sodium 33 36 15 Chloride) Sodium Chloride 0.9% 1, 660 660 365 000 ml @ 100 mls/hr IV . Q10H [facility] Rx#:[id number] Sodium Chloride 0.9% 1, 1000 000 ml @ 999 mls/hr IV . Q1H1M [facility] Rx#:[id number] Intake, IV Titration 278.166 389.213 490.676 Amount Amiodarone 450 mg In 218.615 Dextrose 5% in Water 250 ml @ 0.5 MG/MIN 16.667 mls/hr IV .Q15H [facility] Rx#: [id number] Norepinephrine 32 mg In 113.389 61.689 120.345 Sodium Chloride 0.9% 218 ml @ 0.03 MCG/KG/MIN 0. 907 mls/hr IV .Q24H [facility] Rx#:[id number] Phenylephrine 40 mg In 83.347 72.087 91.782 Sodium Chloride 0.9% 250 ml @ 0.5 MCG/KG/MIN 12. 287 mls/hr IV .[id number] [facility] Rx#:[id number] Piperacillin-Tazobactam 3 100 .375 gm In Sodium Chloride 0.9% 100 ml @ 25 mls/hr IVPB Q8H [facility] Rx#: [id number] Vasopressin 60 unit In 124.16 Sodium Chloride 0.9% 150 ml @ 0.03 UNITS/MIN 4.59 mls/hr IV .Q24H [facility] Rx#: [id number] propofoL 1,000 mg In 81.430 31.277 59.934 Empty Bag 1 bag @ 15 MCG/ KG/MIN 5.348 mls/hr IV . [id number] [facility] Rx#:[id number] Blood Product 620 Rc As-1 Unit 310 [id number] Rc As-1 Unit 310 [id number] Output: Gastric Drainage 50 300 Drainage 320 250 Left Abdomen 320 250 Urine 840 1630 390 Stool 130 Other: Voiding Method Indwelling Catheter Indwelling Catheter Indwelling Catheter ABP, PAP, CO, CI - Last Documented Arterial Blood Pressure 100/59 - Labs CBC & Chem 7: 01/28/23 04:00 01/28/23 04:00 Labs: Abnormal Lab Results - Last 24 Hours (Table) 01/27/23 01/27/23 01/27/23 Range/Units 11:40 18:00 18:13 WBC 19.8 H (3.8-10.6) k/uL RBC 3.47 L 3.75 L (4.30-5.90) m/uL Hgb 8.9 L 9.6 L (13.0-17.5) gm/dL Hct 27.8 L 29.4 L (39.0-53.0) % MCV 79.9 L 78.4 L (80.0-100.0) fL RDW 17.8 H 18.6 H (11.5-15.5) % Plt Count 122 L 138 L (150-450) k/uL PT 17.3 H (9.0-12.0) sec INR 1.7 H (<1.2) APTT 38.7 H (22.0-30.0) sec Fibrinogen (200-500) mg/dL ABG pCO2 (35-45) mmHg ABG pO2 (83-108) mmHg ABG HCO3 (21-25) mmol/L ABG O2 Saturation (94-97) % ABG Lactic Acid (0.5-1.6) mmol/L Carbon Dioxide (22-30) mmol/L BUN (9-20) mg/dL Creatinine (0.66-1.25) mg/dL Calcium (8.4-10.2) mg/dL Total Bilirubin (0.2-1.3) mg/dL AST (17-59) U/L ALT (4-49) U/L Total Protein (6.3-8.2) g/dL Albumin (3.5-5.0) g/dL 01/27/23 01/28/23 01/28/23 Range/Units 18:18 04:00 04:00 WBC 15.8 H 24.4 H (3.8-10.6) k/uL RBC 3.63 L 3.64 L (4.30-5.90) m/uL Hgb 9.3 L 9.4 L (13.0-17.5) gm/dL Hct 28.8 L 28.3 L (39.0-53.0) % MCV 79.3 L 77.8 L (80.0-100.0) fL RDW 18.0 H 18.8 H (11.5-15.5) % Plt Count 134 L 114 L (150-450) k/uL PT 16.5 H (9.0-12.0) sec INR 1.7 H (<1.2) APTT 37.0 H (22.0-30.0) sec Fibrinogen 522 H (200-500) mg/dL ABG pCO2 (35-45) mmHg ABG pO2 (83-108) mmHg ABG HCO3 (21-25) mmol/L ABG O2 Saturation (94-97) % ABG Lactic Acid (0.5-1.6) mmol/L Carbon Dioxide (22-30) mmol/L BUN (9-20) mg/dL Creatinine (0.66-1.25) mg/dL Calcium (8.4-10.2) mg/dL Total Bilirubin (0.2-1.3) mg/dL AST (17-59) U/L ALT (4-49) U/L Total Protein (6.3-8.2) g/dL Albumin (3.5-5.0) g/dL 01/28/23 01/28/23 01/28/23 Range/Units 04:00 04:00 05:50 WBC (3.8-10.6) k/uL RBC (4.30-5.90) m/uL Hgb (13.0-17.5) gm/dL Hct (39.0-53.0) % MCV (80.0-100.0) fL RDW (11.5-15.5) % Plt Count (150-450) k/uL PT (9.0-12.0) sec INR (<1.2) APTT (22.0-30.0) sec Fibrinogen (200-500) mg/dL ABG pCO2 32 L (35-45) mmHg ABG pO2 129 H (83-108) mmHg ABG HCO3 19 L (21-25) mmol/L ABG O2 Saturation 98.3 H (94-97) % ABG Lactic Acid 7.3 H* (0.5-1.6) mmol/L Carbon Dioxide 17 L (22-30) mmol/L BUN 31 H (9-20) mg/dL Creatinine 1.37 H (0.66-1.25) mg/dL Calcium 6.9 L (8.4-10.2) mg/dL Total Bilirubin 1.7 H (0.2-1.3) mg/dL AST 591 H (17-59) U/L ALT 449 H (4-49) U/L Total Protein 4.2 L (6.3-8.2) g/dL Albumin 2.0 L (3.5-5.0) g/dL Microbiology - Last 24 Hours (Table) 01/26/23 19:00 Gram Stain - Preliminary Sputum 01/26/23 05:50 Blood Culture - Preliminary Blood 01/26/23 05:28 Blood Culture - Preliminary Blood
--- NOTE | 2023-01-28 13:08 | P.PN ---
Subjective Progress Note Date: 01/28/23 Principal diagnosis: Acute abdominal sepsis and ischemic bowel This is a 67-year-old white male with history of hypertension, chronic atrial fibrillation, type 2 diabetes, obstructive uropathy, and history of ventral hernia. Patient was brought into the ER because he had a syncopal episode while at the [place] [facility] and upon EMS arrival the patient was noted to be very hypotensive. Indeed in the ER the patient was noted to be hypotensive, he was also noted to have significant lactic acidosis, significant anion gap, leukocytosis, urine was unremarkable, influenza screening are as the screening and COVID-[address] abdomen and pelvis showed findings hackett ggestive of small bowel ischemia and/or small bowel obstruction. Patient was also noted to have ascites and cholelithiasis. I did see the patient in the ER, recommended that we continue Zosyn, patient was already on norepinephrine at 0.15 mcg/kg/h. Patient already received 2 L of fluids and I have ordered a third liter to be given I also recommended a bicarb drip to be started nasogastric tube showed mostly coffee ground material in the cup from gastric suctioning. According to the patient he has been complaining of abdominal pain for 1 week. And his abdomen has been distended for at least one week. Patient is also on a nonrebreather mask at 15 L/m. He has a central line in the right groin placed by the ER physician. Lactic acid was as high as 10, follow-up lactic acid after fluid boluses down to 6.4 I accepted the patient to be admitted to the ICU. Dr. shell already saw the patient and he is planning exploratory laparotomy in the next few hours. Reevaluated today on 01/27/2023, patient exploratory laparotomy with small bowel resection, jejunostomy, and this was done by Dr. shell yesterday. Patient was found to have ischemic small intestine and intra-abdominal adhesions. Patient required multiple pressors during the surgery and after the surgery, he was also on pressors prior to going to OR. Patient remains intubated and mechanically ventilated. He is on assist control rate of 16 tidal volume 500 FiO2 40% and PEEP of 5. ABG showed a pO2 of 17 pCO2 of 30 pH of 7.35, patient remains on bicarb drip. Patient also had some intraoperative and postoperative blood loss, hemoglobin went down to as low as 6.1, received so far 4 units of packed RBCs and his last hemoglobin is 8.9 at 11:30 AM no further active bleeding noted from the stoma. Patient is empirically on Zosyn, he remains hypotensive in spite of multiple drips including norepinephrine and 32 mcg/m, he is also on vasopressin at 0.4 units per minute Rodrigue-Synephrine at 1.1 mcg/kg/m propofol at 25 mcg/kg/m is also on bicarb drip 150 mEq at 75 mL per hour patient is having borderline urine output with urine output of 50 mL per hour. His sister and family members are apparently aware of his poor prognosis, Dr. shell updated the family yesterday after the surgery on the overall prognostic picture, and CODE STATUS was changed to DO NOT RESUSCITATE. In the meantime we will continue all present supportive care measures on this patient. Although the patient is very critically ill, and prognosis is extremely guarded Reevaluated today on 01/28/2023, patient remains in the ICU, intubated and mechanically ventilated. His assist-control rate is 16 tidal volume is 500 FiO2 40% PEEP of 5 ABG showed a pO2 of 129 pCO2 32 pH of 7.40 and I cut down his FiO2 to 35%. Patient is off propofol this morning and he is able to follow instructions, seems to comprehend, and seems to be relatively intact. However the patient is still requiring significant amount of drips/pressors he is on vasopressin at 0.04 units. Hour is also on norepinephrine at 19 mcg/m, Rodrigue- Synephrine has been discontinued. His IV fluid is down to 75 mL per hour and his bicarb is down to 25 ML per hour drip. Remains on amiodarone, patient is on 0.5 mg/m, and he is yet to be seen by cardiology today, seems to be in atrial flutter. WBC count today remains elevated at 24.4 hemoglobin is 9.4, lactic acid is 7.3, patient will receive another bolus of saline this morning. Elected lites are normal renal profile is improving bicarb is down to 17 and his creatinine is down to 1.37, liver enzymes remain elevated with AST of 591 and ALT of 449 chest x-ray showed minimal basilar atelectasis, no clear-cut evidence of infiltrates. Objective - Vital Signs Vital signs: Vital Signs Temp 100.2 F H 01/28/23 08:00 Pulse 138 H 01/28/23 12:30 Resp 8 L 01/28/23 12:30 BP 101/71 01/28/23 12:15 Pulse Ox 99 01/28/23 12:30 FiO2 40 01/28/23 12:00 Intake & Output 01/27/23 01/28/23 01/28/23 18:59 06:59 18:59 Intake Total 3491.166 2285.213 1273.676 Output Total 1210 1630 1210 Balance 2281.166 655.213 63.676 Weight 64.5 kg 66.2 kg Intake: IV 2593 1896 783 Dextrose 5% in Water 1, 900 900 300 000 ml @ 25 mls/hr IV . Q24H [facility] with Sodium Bicarb (1 Meq/ml) 150 ml Rx#:[id number] Magnesium Sulfate-D5w Pmx 200 1 gm In Dextrose/Water 1 100ml.bag @ 100 mls/hr IVPB Q1H [facility] Rx#: [id number] Piperacillin-Tazobactam 3 100 .375 gm In Sodium Chloride 0.9% 100 ml @ 25 mls/hr IVPB Q8H [facility] Rx#: [id number] Pressure Bag (0.9 Sodium 33 36 18 Chloride) Sodium Chloride 0.9% 1, 660 660 465 000 ml @ 100 mls/hr IV . Q10H [facility] Rx#:[id number] Sodium Chloride 0.9% 1, 1000 000 ml @ 999 mls/hr IV . Q1H1M [facility] Rx#:[id number] Intake, IV Titration 278.166 389.213 490.676 Amount Amiodarone 450 mg In 218.615 Dextrose 5% in Water 250 ml @ 0.5 MG/MIN 16.667 mls/hr IV .Q15H [facility] Rx#: [id number] Norepinephrine 32 mg In 113.389 61.689 120.345 Sodium Chloride 0.9% 218 ml @ 0.03 MCG/KG/MIN 0. 907 mls/hr IV .Q24H [facility] Rx#:[id number] Phenylephrine 40 mg In 83.347 72.087 91.782 Sodium Chloride 0.9% 250 ml @ 0.5 MCG/KG/MIN 12. 287 mls/hr IV .[id number] [facility] Rx#:[id number] Piperacillin-Tazobactam 3 100 .375 gm In Sodium Chloride 0.9% 100 ml @ 25 mls/hr IVPB Q8H [facility] Rx#: [id number] Vasopressin 60 unit In 124.16 Sodium Chloride 0.9% 150 ml @ 0.03 UNITS/MIN 4.59 mls/hr IV .Q24H [facility] Rx#: [id number] propofoL 1,000 mg In 81.430 31.277 59.934 Empty Bag 1 bag @ 15 MCG/ KG/MIN 5.348 mls/hr IV . [id number] [facility] Rx#:[id number] Blood Product 620 Rc As-1 Unit 310 [id number] Rc As-1 Unit 310 [id number] Output: Gastric Drainage 50 300 Drainage 320 250 Left Abdomen 320 250 Urine 840 1630 530 Stool 130 Other: Voiding Method Indwelling Catheter Indwelling Catheter Indwelling Catheter ABP, PAP, CO, CI - Last Documented Arterial Blood Pressure 101/63 - Exam Physical Exam: Revealed 67-year-old white male intubated, off propofol, patient is responsive and he is following simple instructions. Head: Atraumatic, normocephalic., endotracheal tube is intact. HEENT:[Neck is supple.] [No neck masses.] [No thyromegaly.] [No JVD.] Continues to have dry mucous membranes. Chest: Symmetrical chest expansion. [Clear throughout, no crackles, no rhonchi, no wheezes.] Cardiac Exam: [Tachycardic, normal S1 and S2, no S3 gallop. No murmur. Abdomen: Soft. Nondistended. Midline incisional dressing clean dry and intact. Jejunostomy on the left with dark greenish output Extremities: [No clubbing, no edema, no cyanosis.] Neurological Exam: Arousable, follows simple instructions, and comprehending what he is being controlled Skin: No rashes. - Labs CBC & Chem 7: 01/28/23 04:00 01/28/23 04:00 Labs: Abnormal Lab Results - Last 24 Hours (Table) 01/27/23 01/27/23 01/27/23 Range/Units 18:00 18:13 18:18 WBC 19.8 H 15.8 H (3.8-10.6) k/uL RBC 3.75 L 3.63 L (4.30-5.90) m/uL Hgb 9.6 L 9.3 L (13.0-17.5) gm/dL Hct 29.4 L 28.8 L (39.0-53.0) % MCV 78.4 L 79.3 L (80.0-100.0) fL RDW 18.6 H 18.0 H (11.5-15.5) % Plt Count 138 L 134 L (150-450) k/uL PT 17.3 H (9.0-12.0) sec INR 1.7 H (<1.2) APTT 38.7 H (22.0-30.0) sec Fibrinogen (200-500) mg/dL ABG pCO2 (35-45) mmHg ABG pO2 (83-108) mmHg ABG HCO3 (21-25) mmol/L ABG O2 Saturation (94-97) % ABG Lactic Acid (0.5-1.6) mmol/L Carbon Dioxide (22-30) mmol/L BUN (9-20) mg/dL Creatinine (0.66-1.25) mg/dL Calcium (8.4-10.2) mg/dL Total Bilirubin (0.2-1.3) mg/dL AST (17-59) U/L ALT (4-49) U/L Total Protein (6.3-8.2) g/dL Albumin (3.5-5.0) g/dL 01/28/23 01/28/23 01/28/23 Range/Units 04:00 04:00 04:00 WBC 24.4 H (3.8-10.6) k/uL RBC 3.64 L (4.30-5.90) m/uL Hgb 9.4 L (13.0-17.5) gm/dL Hct 28.3 L (39.0-53.0) % MCV 77.8 L (80.0-100.0) fL RDW 18.8 H (11.5-15.5) % Plt Count 114 L (150-450) k/uL PT 16.5 H (9.0-12.0) sec INR 1.7 H (<1.2) APTT 37.0 H (22.0-30.0) sec Fibrinogen 522 H (200-500) mg/dL ABG pCO2 (35-45) mmHg ABG pO2 (83-108) mmHg ABG HCO3 (21-25) mmol/L ABG O2 Saturation (94-97) % ABG Lactic Acid (0.5-1.6) mmol/L Carbon Dioxide 17 L (22-30) mmol/L BUN 31 H (9-20) mg/dL Creatinine 1.37 H (0.66-1.25) mg/dL Calcium 6.9 L (8.4-10.2) mg/dL Total Bilirubin 1.7 H (0.2-1.3) mg/dL AST 591 H (17-59) U/L ALT 449 H (4-49) U/L Total Protein 4.2 L (6.3-8.2) g/dL Albumin 2.0 L (3.5-5.0) g/dL 01/28/23 01/28/23 Range/Units 04:00 05:50 WBC (3.8-10.6) k/uL RBC (4.30-5.90) m/uL Hgb (13.0-17.5) gm/dL Hct (39.0-53.0) % MCV (80.0-100.0) fL RDW (11.5-15.5) % Plt Count (150-450) k/uL PT (9.0-12.0) sec INR (<1.2) APTT (22.0-30.0) sec Fibrinogen (200-500) mg/dL ABG pCO2 32 L (35-45) mmHg ABG pO2 129 H (83-108) mmHg ABG HCO3 19 L (21-25) mmol/L ABG O2 Saturation 98.3 H (94-97) % ABG Lactic Acid 7.3 H* (0.5-1.6) mmol/L Carbon Dioxide (22-30) mmol/L BUN (9-20) mg/dL Creatinine (0.66-1.25) mg/dL Calcium (8.4-10.2) mg/dL Total Bilirubin (0.2-1.3) mg/dL AST (17-59) U/L ALT (4-49) U/L Total Protein (6.3-8.2) g/dL Albumin (3.5-5.0) g/dL Microbiology - Last 24 Hours (Table) 01/26/23 19:00 Gram Stain - Preliminary Sputum 01/26/23 05:50 Blood Culture - Preliminary Blood 01/26/23 05:28 Blood Culture - Preliminary Blood Assessment and Plan Assessment: Impression:Exploratory laparotomy with small bowel resection, jejunostomy, postoperative day #2 Acute hypoxic respiratory failure secondary to abdominal sepsis and septic shock, with extensive bowel ischemia Abdominal sepsis and septic shock Acute lactic acidosis secondary to above /bowel ischemia and sepsis with septic shock Paroxysmal atrial fibrillation History of benign essential hypertension Ventral hernia Acute kidney injury secondary to sepsis and septic shock/suspect acute tubular necrosis however improved today compared to yesterday Recommendation: Continue ventilatory support Continue to monitor in ICU Continue hemodynamic support and titrate pressors down if possible Continue antibiotics/Zosyn Continue sedation Cut down the bicarb drip to 25 mL per hour Cut down the dose of Solu-Cortef to 50 mg IV push every 12 hours Transfuse for any hemoglobin below 7 if necessary. Continue GI and DVT prophylaxis TPN to be started, office services manager evaluate the patient Overall prognosis remains poor and guarded. Patient remains quite critically ill. Critical care time is over 30 minutes We'll continue to follow Time with Patient: Greater than 30
[2023-01-28] MEDS ORDERED: METOPROLOL TARTRATE 5 MG/5 ML VIAL IVP SCH (14:00)
[2023-01-28] MEDS: FAT EMULSION 20% 250 ML in EMPTY BAG 1 BAG IV SCH (17:11)
[2023-01-28 17:36] LABS: Glucose,Whole Blood 122 mg/dL (70-110)
--- NOTE | 2023-01-28 18:51 | P.PN ---
Subjective Progress Note Date: 01/28/23 (delayed charting seen at 0930) Patient is a 67 -year-old male with history of high blood pressure, atrial fibrillation, diabetes mellitus type 2, obstructive uropathy, and long-standing ventral hernia who presented to the ER from his long term due to syncopal episode. In the ER he underwent extensive evaluation. On arrival was vital signs were remarkable for blood pressure 67/33 and a pulse of 60. Laboratory analysis was reviewed including a CBC, coagulation studies, CMP, liver function, lactic acid, and troponin which were remarkable for white blood cell count 15, hemoglobin 8.7, hematocrit 29.9, INR 1.6, carbon dioxide 14, anion gap 19, , lactic acid 9.6. Influenza A/B/RSV/COVID-[address] abdomen and pelvis completed which showed small bowel ischemia versus obstruction, ascites, cholelithiasis. In the ER he was given 2 L normal saline. He remained hypot ensive and was started on norepinephrine and Zosyn. Arrangements were made for admission to the ICU. He was seen by surgery, he was administered a dose of K Centra and underwent urgent exploratory laparotomy with small bowel resection and jejunostomy. The majority of the small bowel was resected with approximately 1 foot of jejunum that was viable, and duodenum was also viable. 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 Overnight patient's vasopressor requirements increased and he was subsequently started on phenylephrine and vasopressin. His cortisol was 16 which is not adaquate for his state of shock and he was started on cortef . Patient seen and examined at bedside. He is intubated and sedated. Discussed with nursing. No acute events overnight. Able to come down slightly on vasopressors today. 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 - Zosyn 3.375 g IVPB q 8 hours D#3 - D5W with 3 A of bicarbonate at 75 mL/h - NGT to LIS - hold Lopressor - solucortef 50 IVP TID - On vaso, phenylephrine, and norepi was as ablve - TPN Acute kidney Injury due to ATN - improving -Likely secondary to hypoperfusion -Avoid nephrotoxic agents -IV fluids -Repeat creatinine in a.m. -Maintain map greater than 65 Anemia, due to acute blood loss- s/p 4 untis pRBC coagulopathy - Kcentra -Follow CBC - no need for iron studies due to transfusion Atrial fibrillation with controlled ventricular rate -Metoprolol on hold secondary to hypotension -hold xarelto, resume when okay per surgery Diabetes mellitus type 2 - not on chronic medications - SSI, follow BS Chronic: Hypertension Cirrhosis Constipation Gastric ulcer Encephalopathy Abdominal hernia Imaging: Chest x-ray: left perihilar fullness Data Review: Vital signs reviewed in T-max in the last 24 hours 100.9 Attribute today include CBC, coagulation studies, ABG, basic metabolic profile, magnesium, and liver enzymes which are remarkable for white blood cell count 24.4, hemoglobin 9.4, platelets 114, INR 1.7, fibrinogen 522, pH 7.4 with pCO2 32 and bicarb 19, carbon dioxide 17, anion gap 13, BUN 31, creatinine 1.37, bilirubin 1.6, AST 591, ALT 449 Cultures negative to date DVT prophylaxis: SCDs Discussed with: Patient, nursing Anticipated discharge date: Pending clinical course Anticipated discharge place: Pending clinical course This dictation was prepared using [employer] voice recognition software. Though every attempt is made to correct errors during dictation some may still exist. Active Medications Generic Name Dose Route Start Last Admin Trade Name Freq PRN Reason Stop Dose Admin Artificial Tears 1 drops 01/26/23 22:00 01/28/23 05:35 Artificial Tears-Hypromellose Drops 15 Ml Btl RIGHT EYE 1 drops BID@0500,2200 [facility] Administration Chlorhexidine Gluconate 15 ml 01/26/23 21:00 01/28/23 08:43 Chlorhexidine Gluconate 15 Ml Cup MUCOUS MEM 15 ml BID [facility] Administration Dextrose/Water 50 ml 01/26/23 10:00 Dextrose 50% Syringe 50 Ml IVP PER PROTOCOL PRN Hypoglycemia Protocol Dextrose/Water 25 ml 01/26/23 10:00 Dextrose 50% Syringe 50 Ml IVP PER PROTOCOL PRN Hypoglycemia Protocol Hydrocortisone Sodium Succinate 50 mg 01/28/23 13:15 01/28/23 13:58 Hydrocortisone Succinate 100 Mg/2 Ml Vial IV 50 mg Q12HR [facility] Administration Hydromorphone HCl 0.5 mg 01/28/23 09:33 01/28/23 17:41 Hydromorphone 0.5 Mg/0.5 Ml Syringe IVP 0.5 mg Q2HR PRN Administration Pain Piperacillin Sod/Tazobactam 100 mls @ 25 mls/hr 01/26/23 14:00 01/28/23 14:00 Sod 3.375 gm/ Sodium Chloride IVPB 25 mls/hr Q8H [facility] Administration Protocol Sodium Bicarbonate 150 ml/ 1,150 mls @ 25 mls/hr 01/26/23 09:15 01/28/23 09:40 Dextrose/Water IV 25 mls/hr .Q24H [facility] Administration Sodium Chloride 1,000 mls @ 100 mls/hr 01/26/23 09:47 01/28/23 09:38 Saline 0.9% IV 100 mls/hr .Q10H [facility] Administration Vasopressin 60 unit/ Sodium 153 mls @ 4.59 mls/hr 01/26/23 16:00 01/28/23 18:38 Chloride IV Not Given .Q24H [facility] Protocol 0.03 UNITS/MIN Propofol 1,000 mg/ IV Solution 100 mls @ 5.348 mls/hr 01/26/23 19:15 01/28/23 15:12 IV 7 mcg/kg/min .[id number] [facility] 2.496 mls/hr Administration Protocol 15 MCG/KG/MIN Phenylephrine HCl 40 mg/ 254 mls @ 12.287 mls/hr 01/27/23 05:00 01/28/23 08:30 Sodium Chloride IV 0 mcg/kg/min .[id number] [facility] 0 mls/hr Titration Protocol 0.5 MCG/KG/MIN Norepinephrine Bitartrate 32 250 mls @ 0.907 mls/hr 01/27/23 10:00 01/28/23 17:41 mg/ Sodium Chloride IV 0.2 mcg/kg/min .Q24H [facility] 6.047 mls/hr Titration Protocol 0.03 MCG/KG/MIN Parenteral Vitamin Supplement 1,011 mls @ 30 mls/hr 01/28/23 12:00 01/28/23 12:23 10 ml/ Zinc/Copper/Manganese/ IV 01/29/23 09:00 30 mls/hr Selenium 1 ml/ Amino Ac/ .Q24H [facility] Administration Electrol/Dextrose/Calcium Parenteral Vitamin Supplement 1,011 mls @ 60 mls/hr 01/29/23 12:00 10 ml/ Zinc/Copper/Manganese/ IV Selenium 1 ml/ Amino Ac/ .[id number] [facility] Electrol/Dextrose/Calcium Amiodarone HCl 450 mg/ 250 mls @ 16.667 mls/hr 01/28/23 14:15 01/28/23 15:15 Dextrose/Water IV 01/29/23 08:14 0.5 mg/min .Q15H [facility] 16.667 mls/hr Administration Protocol 0.5 MG/MIN Fat Emulsion Intravenous 250 250 mls @ 21 mls/hr 01/28/23 16:00 01/28/23 17:11 ml/ IV Solution IV 21 mls/hr TuFr [facility] Administration Insulin Aspart 0 unit 01/27/23 12:00 01/28/23 18:39 Insulin Aspart (Novolog) 100 Unit/Ml Vial SQ Not Given Q6HR [facility] Protocol Miscellaneous Information 1 each 01/27/23 12:08 Magnesium Replacement Protocol 1 Each Misc MISCELLANE DAILY PRN Per Protocol Protocol Naloxone HCl 0.2 mg 01/26/23 08:37 Naloxone 0.4 Mg/Ml 1 Ml Vial IV Q2M PRN Opioid Reversal Ondansetron HCl 4 mg 01/26/23 09:55 Ondansetron 4 Mg/2 Ml Vial IVP Q8HR PRN Nausea And Vomiting Pantoprazole Sodium 40 mg 01/27/23 09:00 01/28/23 08:43 Pantoprazole 40 Mg/10 Ml Vial IVP 40 mg BID [facility] Administration Objective - Vital Signs Vital signs: Vital Signs Temp 99.0 F 01/28/23 17:00 Pulse 75 01/28/23 18:30 Resp 21 01/28/23 18:30 BP 100/57 01/28/23 18:30 Pulse Ox 99 01/28/23 18:30 FiO2 35 01/28/23 18:00 Intake & Output 01/27/23 01/28/23 01/28/23 18:59 06:59 18:59 Intake Total 3491.166 2285.213 3483.843 Output Total 1210 1630 1612 Balance 2281.166 847.484 0987.843 Weight 64.5 kg 66.2 kg 66.2 kg Intake: IV 2593 1896 2891 Dextrose 5% in Water 1, 900 900 425 000 ml @ 25 mls/hr IV . Q24H [facility] with Sodium Bicarb (1 Meq/ml) 150 ml Rx#:[id number] Magnesium Sulfate-D5w Pmx 200 1 gm In Dextrose/Water 1 100ml.bag @ 100 mls/hr IVPB Q1H [facility] Rx#: [id number] Mvi, Adult No.4 with Vit 165 K 10 ml Trace (Conc-1Ml/ Dose) 1 ml In Amino Acid 5%-D15w+Lytes*E* 1,000 ml @ 30 mls/hr IV .Q24H [facility] Rx#:[id number] Piperacillin-Tazobactam 3 100 200 .375 gm In Sodium Chloride 0.9% 100 ml @ 25 mls/hr IVPB Q8H [facility] Rx#: [id number] Pressure Bag (0.9 Sodium 33 36 36 Chloride) Sodium Chloride 0.9% 1, 388 745 6489 000 ml @ 100 mls/hr IV . Q10H [facility] Rx#:[id number] Sodium Chloride 0.9% 1, 1000 1000 000 ml @ 999 mls/hr IV . Q1H1M [facility] Rx#:[id number] Intake, IV Titration 278.166 389.213 592.843 Amount Amiodarone 450 mg In 218.615 Dextrose 5% in Water 250 ml @ 0.5 MG/MIN 16.667 mls/hr IV .Q15H [facility] Rx#: [id number] Norepinephrine 32 mg In 113.389 61.689 202.128 Sodium Chloride 0.9% 218 ml @ 0.03 MCG/KG/MIN 0. 907 mls/hr IV .Q24H [facility] Rx#:[id number] Phenylephrine 40 mg In 83.347 72.087 91.782 Sodium Chloride 0.9% 250 ml @ 0.5 MCG/KG/MIN 12. 287 mls/hr IV .[id number] [facility] Rx#:[id number] Piperacillin-Tazobactam 3 100 .375 gm In Sodium Chloride 0.9% 100 ml @ 25 mls/hr IVPB Q8H [facility] Rx#: [id number] Vasopressin 60 unit In 124.16 7.114 Sodium Chloride 0.9% 150 ml @ 0.03 UNITS/MIN 4.59 mls/hr IV .Q24H [facility] Rx#: [id number] propofoL 1,000 mg In 81.430 31.277 73.204 Empty Bag 1 bag @ 15 MCG/ KG/MIN 5.348 mls/hr IV . [id number] [facility] Rx#:[id number] Blood Product 620 Rc As-1 Unit 310 [id number] Rc As-1 Unit 310 [id number] Output: Gastric Drainage 50 300 Drainage 320 250 Left Abdomen 320 250 Urine 840 1630 832 Stool 230 Other: Voiding Method Indwelling Catheter Indwelling Catheter Indwelling Catheter ABP, PAP, CO, CI - Last Documented Arterial Blood Pressure 105/58 - Labs CBC & Chem 7: 01/28/23 04:00 01/28/23 04:00 Labs: Abnormal Lab Results - Last 24 Hours (Table) 01/27/23 01/27/23 01/27/23 Range/Units 18:00 18:13 18:18 WBC 19.8 H 15.8 H (3.8-10.6) k/uL RBC 3.75 L 3.63 L (4.30-5.90) m/uL Hgb 9.6 L 9.3 L (13.0-17.5) gm/dL Hct 29.4 L 28.8 L (39.0-53.0) % MCV 78.4 L 79.3 L (80.0-100.0) fL RDW 18.6 H 18.0 H (11.5-15.5) % Plt Count 138 L 134 L (150-450) k/uL PT 17.3 H (9.0-12.0) sec INR 1.7 H (<1.2) APTT 38.7 H (22.0-30.0) sec Fibrinogen (200-500) mg/dL ABG pCO2 (35-45) mmHg ABG pO2 (83-108) mmHg ABG HCO3 (21-25) mmol/L ABG O2 Saturation (94-97) % ABG Lactic Acid (0.5-1.6) mmol/L Carbon Dioxide (22-30) mmol/L BUN (9-20) mg/dL Creatinine (0.66-1.25) mg/dL POC Glucose (mg/dL) (70-110) mg/dL Calcium (8.4-10.2) mg/dL Total Bilirubin (0.2-1.3) mg/dL AST (17-59) U/L ALT (4-49) U/L Total Protein (6.3-8.2) g/dL Albumin (3.5-5.0) g/dL 01/28/23 01/28/23 01/28/23 Range/Units 04:00 04:00 04:00 WBC 24.4 H (3.8-10.6) k/uL RBC 3.64 L (4.30-5.90) m/uL Hgb 9.4 L (13.0-17.5) gm/dL Hct 28.3 L (39.0-53.0) % MCV 77.8 L (80.0-100.0) fL RDW 18.8 H (11.5-15.5) % Plt Count 114 L (150-450) k/uL PT 16.5 H (9.0-12.0) sec INR 1.7 H (<1.2) APTT 37.0 H (22.0-30.0) sec Fibrinogen 522 H (200-500) mg/dL ABG pCO2 (35-45) mmHg ABG pO2 (83-108) mmHg ABG HCO3 (21-25) mmol/L ABG O2 Saturation (94-97) % ABG Lactic Acid (0.5-1.6) mmol/L Carbon Dioxide 17 L (22-30) mmol/L BUN 31 H (9-20) mg/dL Creatinine 1.37 H (0.66-1.25) mg/dL POC Glucose (mg/dL) (70-110) mg/dL Calcium 6.9 L (8.4-10.2) mg/dL Total Bilirubin 1.7 H (0.2-1.3) mg/dL AST 591 H (17-59) U/L ALT 449 H (4-49) U/L Total Protein 4.2 L (6.3-8.2) g/dL Albumin 2.0 L (3.5-5.0) g/dL 01/28/23 01/28/23 01/28/23 Range/Units 04:00 05:50 17:35 WBC (3.8-10.6) k/uL RBC (4.30-5.90) m/uL Hgb (13.0-17.5) gm/dL Hct (39.0-53.0) % MCV (80.0-100.0) fL RDW (11.5-15.5) % Plt Count (150-450) k/uL PT (9.0-12.0) sec INR (<1.2) APTT (22.0-30.0) sec Fibrinogen (200-500) mg/dL ABG pCO2 32 L (35-45) mmHg ABG pO2 129 H (83-108) mmHg ABG HCO3 19 L (21-25) mmol/L ABG O2 Saturation 98.3 H (94-97) % ABG Lactic Acid 7.3 H* (0.5-1.6) mmol/L Carbon Dioxide (22-30) mmol/L BUN (9-20) mg/dL Creatinine (0.66-1.25) mg/dL POC Glucose (mg/dL) 122 H (70-110) mg/dL Calcium (8.4-10.2) mg/dL Total Bilirubin (0.2-1.3) mg/dL AST (17-59) U/L ALT (4-49) U/L Total Protein (6.3-8.2) g/dL Albumin (3.5-5.0) g/dL Microbiology - Last 24 Hours (Table) 01/26/23 19:00 Gram Stain - Preliminary Sputum Sputum Culture - Preliminary Leila albicans 01/26/23 05:50 Blood Culture - Preliminary Blood 01/26/23 05:28 Blood Culture - Preliminary Blood
[2023-01-28] MEDS: PHENYLEPHRINE 40 MG in SODIUM CHLORIDE 0.9% 250 ML IV SCH (21:53)
--- NOTE | 2023-01-28 22:24 | CONS ---
CONSULTATION HISTORY OF PRESENT ILLNESS: New is a 67-year-old gentleman, who is admitted to hospital with bowel ischemia and I was consulted yesterday because of atrial fibrillation with rapid ventricular rate. This morning, he remains intubated on vent. Heart rate is still poorly controlled, on intravenous amiodarone, and he is hypotensive and requiring multiple pressors. PHYSICAL EXAMINATION: VITAL SIGNS: Heart rate is around 120 beats per minute, blood pressure is 105/56, respiratory rate is 18. CHEST: Exam reveals diminished air entry at the bases. HEART: Exam reveals first and second heart sounds. Systolic murmur at the apex. ABDOMEN: Soft. EXTREMITIES: Exam of extremities revealed mild edema. Peripheral pulses are diminished. LABORATORY DATA: Labs show that hemoglobin is 9.4. Potassium is 4.2, creatinine is 1.3. ASSESSMENT: Hypotension, ischemic bowel, status post surgery, atrial fibrillation with rapid ventricular rate. PLAN: I will continue the patient on amiodarone that he is on. Use the IV metoprolol for rate control. MMODL / IJN: [id number] /
[2023-01-29 00:03] LABS: Glucose,Whole Blood 127 mg/dL (70-110)
[2023-01-29] MEDS: SODIUM CHLORIDE 0.9% 1,000 ML IV SCH ×3 (00:04→14:30)
[2023-01-29] MEDS: INSULIN ASPART (NovoLOG) 100 UNIT/ML VIAL SQ SCH ×4 (00:05→18:05)
[2023-01-29] MEDS: HYDROmorphone 0.5 MG/0.5 ML SYRINGE IVP PRN ×2 (02:22→17:29)
[2023-01-29 04:57] LABS: ALT 486 U/L (4-49); AST 508 U/L (17-59); African American GFR (CKD) >90 (>60 ml/min/1.73 sqM); Albumin 1.7 g/dL (3.5-5.0); Alkaline Phosphatase 68 U/L (38-126); Anion Gap 6 mmol/L; Blood Urea Nitrogen 25 mg/dL (9-20); Carbon Dioxide 25 mmol/L (22-30); Chloride 107 mmol/L (98-107); Glucose 122 mg/dL (74-99); Magnesium 2.4 mg/dL (1.6-2.3); Non-African American GFR(CKD) >90 (>60 ml/min/1.73 sqM); Phosphorus 2.1 mg/dL (2.5-4.5); Potassium 3.3 mmol/L (3.5-5.1); Sodium 138 mmol/L (137-145); Total Bilirubin 1.4 mg/dL (0.2-1.3); Total Protein 3.9 g/dL (6.3-8.2)
[2023-01-29 05:01] LABS: Anisocytosis Slight; HCT 25.4 % (39.0-53.0); HGB 8.3 gm/dL (13.0-17.5); Hypochromasia Marked; MCH 25.9 pg (25.0-35.0); MCHC 32.6 g/dL (31.0-37.0); MCV 79.6 fL (80.0-100.0); Mean Platelet Volume 10.1; Microcytosis Slight; Platelet Count 105 k/uL (150-450); Poikilocytosis Moderate; RBC 3.19 m/uL (4.30-5.90); RDW 18.9 % (11.5-15.5); WBC 20.4 k/uL (3.8-10.6)
--- NOTE | 2023-01-29 05:53 | XR ---
EXAMINATION TYPE: XR chest 1V portable DATE OF EXAM: 01/29/2023 CLINICAL HISTORY: Difficulty breathing progress study. Tube placement. TECHNIQUE: Single AP portable semiupright view of the chest is obtained. COMPARISON: Chest x-ray from one day earlier FINDINGS: There is new endotracheal tube terminating at superior aortic knob level approximately 4 t o 5 cm above the dulce maria. There is new orogastric tube projecting below the diaphragm. More prominent patchy bibasilar opacities are present. Cardiac silhouette size Stable and within norm al limits. Osseous structures are intact. IMPRESSION: 1. New endotracheal and orogastric tubes are satisfactory in position. 2. Worsening bibasilar infiltrates and/or atelectasis.
[2023-01-29 05:59] LABS: Glucose,Whole Blood 128 mg/dL (70-110)
[2023-01-29 06:29] LABS: ABG Base Excess 1.8 mmol/L; ABG HCO3 27 mmol/L (21-25); ABG Oxygen Saturation 98.6 % (94-97); ABG PCO2 42 mmHg (35-45); ABG PH 7.41 (7.35-7.45); ABG PO2 147 mmHg (83-108); ABG TCO2 28 mmol/L (19-24); Allen Test Performed? Yes
[2023-01-29] MEDS: PIPERACILLIN-TAZOBACTAM 3.375 GM in SODIUM CHLORIDE 0.9% 100 ML IVPB SCH ×3 (06:30→22:29)
[2023-01-29] MEDS: ARTIFICIAL TEARS-HYPROMELLOSE DROPS 15 ML BTL RIGHT EYE SCH ×2 (07:36→22:28)
[2023-01-29] MEDS ORDERED: METOPROLOL TARTRATE 5 MG/5 ML VIAL IVP STA (08:05)
[2023-01-29] MEDS: NOREPINEPHRINE 32 MG in SODIUM CHLORIDE 0.9% 218 ML IV SCH (08:07)
--- NOTE | 2023-01-29 08:08 | P.PN ---
Progress Note - Text Progress Note Date: 01/29/23 Patient remains clinically unchanged from yesterday. Patient remains on the ventilator. His condition is critical. Systolic blood pressure is in the high 90s. Patient is tachycardic with pulse 125 range Abdomen soft incision is clean jejunostomy has some output. Status post small bowel resection for ischemic bowel. Patient will continue to receive supportive care.
[2023-01-29] MEDS: POTASSIUM CHLORIDE 20 MEQ in WATER FOR INJECTION 1 100ML.BAG IVPB SCH ×2 (08:12→09:41)
[2023-01-29] MEDS: DEXTROSE 5% IN WATER 1,000 ML with SODIUM BICARB (1 MEQ/ML) 150 ML IV SCH (08:19)
[2023-01-29] MEDS: PANTOPRAZOLE 40 MG/10 ML VIAL IVP SCH ×2 (08:33→20:31)
[2023-01-29] MEDS: HYDROCORTISONE SUCCINATE 100 MG/2 ML VIAL IV SCH ×2 (08:33→20:32)
[2023-01-29] MEDS: CHLORHEXIDINE GLUCONATE 15 ML CUP MUCOUS MEM SCH ×2 (08:33→20:32)
[2023-01-29] MEDS: PHENYLEPHRINE 40 MG in SODIUM CHLORIDE 0.9% 250 ML IV SCH ×2 (09:40→16:29)
[2023-01-29] MEDS: ENOXAPARIN 40 MG/0.4 ML SYRINGE SQ SCH (09:41)
--- NOTE | 2023-01-29 10:55 | P.PN ---
Subjective Progress Note Date: 01/29/23 (delayed charting seen at 0830) Patient is a 67 -year-old male with history of high blood pressure, atrial fibrillation, diabetes mellitus type 2, obstructive uropathy, and long-standing ventral hernia who presented to the ER from his correction due to syncopal episode. In the ER he underwent extensive evaluation. On arrival was vital signs were remarkable for blood pressure 67/33 and a pulse of 60. Laboratory analysis was reviewed including a CBC, coagulation studies, CMP, liver function, lactic acid, and troponin which were remarkable for white blood cell count 15, hemoglobin 8.7, hematocrit 29.9, INR 1.6, carbon dioxide 14, anion gap 19, , lactic acid 9.6. Influenza A/B/RSV/COVID-[address] abdomen and pelvis completed which showed small bowel ischemia versus obstruction, ascites, cholelithiasis. In the ER he was given 2 L normal saline. He remained hypot ensive and was started on norepinephrine and Zosyn. Arrangements were made for admission to the ICU. He was seen by surgery, he was administered a dose of K Centra and underwent urgent exploratory laparotomy with small bowel resection and jejunostomy. The majority of the small bowel was resected with approximately 1 foot of jejunum that was viable, and duodenum was also viable. 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 Postoperatively he required 4 untis of pRBC. The night after surgery the patient's vasopressor requirements increased and he was subsequently started on phenylephrine and vasopressin. His cortisol was 16 which is not adaquate for his state of shock and he was started on cortef. On 01/28 he went into A. fib with RVR necessitating a amiodarone drip. He vaso and phenylephrine were able to be weaned off by the morning of 01/29. Patient seen and examined at bedside. He is sedated on vent. Nursing at bedside. Yesterday afternoon he went into A. fib with RVR necessitating a amiodarone drip. They were initially able to wean phenylephrine and vasopressin off. However he has struggled with tachycardia and now is getting metoprolol which in turn is increasing his levophed gtt. No other acute events. 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 - Zosyn 3.375 g IVPB q 8 hours D#4 - D5W with 3 A of bicarbonate discontinued - NGT to LIS - hold Lopressor - solucortef 50 IVP TID - wean norepi was as able - TPN Acute kidney Injury due to ATN -Improving -Likely secondary to hypoperfusion -Avoid nephrotoxic agents -IV fluids -Repeat creatinine in a.m. -Maintain map greater than 65 Anemia, due to acute blood loss- s/p 4 units pRBC Coagulopathy Thrombocytopenia - s/p Kcentra - Follow CBC - no need for iron studies due to transfusion Atrial fibrillation with RVR - s/p amio gtt -Metoprolol on hold secondary to hypotension -hold xarelto, resume when okay per surgery Diabetes mellitus type 2 - not on chronic medications - SSI, follow BS Chronic: Hypertension Cirrhosis Constipation Gastric ulcer Encephalopathy Imaging: Chest x-ray reviewed by myself: lines and tubes in appropriate position Data Review: Vitals reviewed and T-max the last 24 hours 100.2 Sputum culture-Leila albicans Blood cultures negative for 48 hours Labs reviewed included CBC, ABG, CMP, magnesium, and phosphorus which are remarkable for white blood cell count 20.4, hemoglobin 8.3, platelets 105, bicarb 27, potassium 3.3, phosphorus 2.1, magnesium 2.4, bilirubin 1.4, AST 508, ALT 486, albumin 1.7. DVT prophylaxis: start lovenox 40 mg daily Discussed with: Patient, nursing Anticipated discharge date: Pending clinical course Anticipated discharge place: Pending clinical course This dictation was prepared using [employer] voice recognition software. Though every attempt is made to correct errors during dictation some may still exist. Objective - Vital Signs Vital signs: Vital Signs Temp 97.7 F 01/29/23 04:00 Pulse 117 H 01/29/23 10:00 Resp 18 01/29/23 10:00 BP 94/70 01/29/23 10:00 Pulse Ox 98 01/29/23 10:00 FiO2 35 01/29/23 08:02 Intake & Output 01/28/23 01/29/23 01/29/23 18:59 06:59 18:59 Intake Total 3483.843 2248.845 853.278 Output Total 1612 1070 365 Balance 1167.158 8267.845 488.278 Weight 66.2 kg 71.7 kg Intake: IV 2891 2048 632 Dextrose 5% in Water 1, 425 275 75 000 ml @ 25 mls/hr IV . Q24H [facility] with Sodium Bicarb (1 Meq/ml) 150 ml Rx#:[id number] Fat Emulsion 20% 250 ml 210 In Empty Bag 1 bag @ 21 mls/hr IV TuFr [facility] Rx#: [id number] Mvi, Adult No.4 with Vit 165 330 120 K 10 ml Trace (Conc-1Ml/ Dose) 1 ml In Amino Acid 5%-D15w+Lytes*E* 1,000 ml @ 30 mls/hr IV .Q24H [facility] Rx#:[id number] Piperacillin-Tazobactam 3 200 100 .375 gm In Sodium Chloride 0.9% 100 ml @ 25 mls/hr IVPB Q8H [facility] Rx#: [id number] Pressure Bag (0.9 Sodium 36 33 12 Chloride) Sodium Chloride 0.9% 1, 1065 1100 425 000 ml @ 125 mls/hr IV . Q8H [facility] Rx#:[id number] Sodium Chloride 0.9% 1, 1000 000 ml @ 999 mls/hr IV . Q1H1M [facility] Rx#:[id number] Intake, IV Titration 592.843 200.845 221.278 Amount Amiodarone 450 mg In 218.615 Dextrose 5% in Water 250 ml @ 0.5 MG/MIN 16.667 mls/hr IV .Q15H [facility] Rx#: [id number] Amiodarone 450 mg In 131.392 Dextrose 5% in Water 250 ml @ 0.5 MG/MIN 16.667 mls/hr IV .Q15H [facility] Rx#: [id number] Norepinephrine 32 mg In 202.128 31.264 15.133 Sodium Chloride 0.9% 218 ml @ 0.03 MCG/KG/MIN 0. 907 mls/hr IV .Q24H [facility] Rx#:[id number] Phenylephrine 40 mg In 91.782 6.145 Sodium Chloride 0.9% 250 ml @ 0.5 MCG/KG/MIN 12. 287 mls/hr IV .[id number] [facility] Rx#:[id number] Potassium Chloride 20 meq 200 In Water For Injection 1 100ml.bag @ 50 mls/hr IVPB Q2H [facility] Rx#: [id number] Vasopressin 60 unit In 7.114 Sodium Chloride 0.9% 150 ml @ 0.03 UNITS/MIN 4.59 mls/hr IV .Q24H [facility] Rx#: [id number] propofoL 1,000 mg In 73.204 38.189 Empty Bag 1 bag @ 15 MCG/ KG/MIN 5.348 mls/hr IV . [id number] [facility] Rx#:[id number] Output: Gastric Drainage 300 Drainage 250 Left Abdomen 250 Urine 832 680 365 Stool 230 390 Other: Voiding Method Indwelling Catheter Indwelling Catheter Indwelling Catheter ABP, PAP, CO, CI - Last Documented Arterial Blood Pressure 113/65 - Labs CBC & Chem 7: 01/29/23 04:06 01/29/23 04:06 Labs: Abnormal Lab Results - Last 24 Hours (Table) 01/26/23 01/28/23 01/29/23 Range/Units 21:18 17:35 00:01 WBC (3.8-10.6) k/uL RBC (4.30-5.90) m/uL Hgb (13.0-17.5) gm/dL Hct (39.0-53.0) % MCV (80.0-100.0) fL RDW (11.5-15.5) % Plt Count (150-450) k/uL ABG pO2 (83-108) mmHg ABG HCO3 (21-25) mmol/L ABG Total CO2 (19-24) mmol/L ABG O2 Saturation (94-97) % Potassium (3.5-5.1) mmol/L BUN (9-20) mg/dL Glucose (74-99) mg/dL POC Glucose (mg/dL) 122 H 127 H (70-110) mg/dL Calcium (8.4-10.2) mg/dL Phosphorus (2.5-4.5) mg/dL Magnesium (1.6-2.3) mg/dL Total Bilirubin (0.2-1.3) mg/dL AST (17-59) U/L ALT (4-49) U/L Total Protein (6.3-8.2) g/dL Albumin (3.5-5.0) g/dL Crossmatch See Detail 01/29/23 01/29/23 01/29/23 Range/Units 04:06 04:06 05:58 WBC 20.4 H (3.8-10.6) k/uL RBC 3.19 L (4.30-5.90) m/uL Hgb 8.3 L (13.0-17.5) gm/dL Hct 25.4 L (39.0-53.0) % MCV 79.6 L (80.0-100.0) fL RDW 18.9 H (11.5-15.5) % Plt Count 105 L (150-450) k/uL ABG pO2 (83-108) mmHg ABG HCO3 (21-25) mmol/L ABG Total CO2 (19-24) mmol/L ABG O2 Saturation (94-97) % Potassium 3.3 L (3.5-5.1) mmol/L BUN 25 H (9-20) mg/dL Glucose 122 H (74-99) mg/dL POC Glucose (mg/dL) 128 H (70-110) mg/dL Calcium 7.0 L (8.4-10.2) mg/dL Phosphorus 2.1 L (2.5-4.5) mg/dL Magnesium 2.4 H (1.6-2.3) mg/dL Total Bilirubin 1.4 H (0.2-1.3) mg/dL AST 508 H (17-59) U/L ALT 486 H (4-49) U/L Total Protein 3.9 L (6.3-8.2) g/dL Albumin 1.7 L (3.5-5.0) g/dL Crossmatch 01/29/23 Range/Units 06:24 WBC (3.8-10.6) k/uL RBC (4.30-5.90) m/uL Hgb (13.0-17.5) gm/dL Hct (39.0-53.0) % MCV (80.0-100.0) fL RDW (11.5-15.5) % Plt Count (150-450) k/uL ABG pO2 147 H (83-108) mmHg ABG HCO3 27 H (21-25) mmol/L ABG Total CO2 28 H (19-24) mmol/L ABG O2 Saturation 98.6 H (94-97) % Potassium (3.5-5.1) mmol/L BUN (9-20) mg/dL Glucose (74-99) mg/dL POC Glucose (mg/dL) (70-110) mg/dL Calcium (8.4-10.2) mg/dL Phosphorus (2.5-4.5) mg/dL Magnesium (1.6-2.3) mg/dL Total Bilirubin (0.2-1.3) mg/dL AST (17-59) U/L ALT (4-49) U/L Total Protein (6.3-8.2) g/dL Albumin (3.5-5.0) g/dL Crossmatch Microbiology - Last 24 Hours (Table) 01/26/23 19:00 Gram Stain - Final Sputum Sputum Culture - Final Leila albicans 01/26/23 05:50 Blood Culture - Preliminary Blood 01/26/23 05:28 Blood Culture - Preliminary Blood
[2023-01-29] MEDS ORDERED: MVI, ADULT NO.4 WITH VIT K 10 ML, TRACE (CONC-1ML/DOSE) 1 ML in AMINO ACID 5%-D15W+LYTE... IV SCH ×3 (12:00)
[2023-01-29 12:08] LABS: Glucose,Whole Blood 117 mg/dL (70-110)
--- NOTE | 2023-01-29 12:20 | P.PN ---
Subjective Progress Note Date: 01/29/23 Principal diagnosis: Acute abdominal sepsis and ischemic bowel This is a 67-year-old white male with history of hypertension, chronic atrial fibrillation, type 2 diabetes, obstructive uropathy, and history of ventral hernia. Patient was brought into the ER because he had a [facility]opal episode [facility] and upon EMS arrival the patient was noted to be very hypotensive. Indeed in the ER the patient was noted to be hypotensive, he was also noted to have significant lactic acidosis, significant anion gap, leukocytosis, urine was unremarkable, influenza screening are as the screening and COVID-[address] abdomen and pelvis showed findings hackett ggestive of small bowel ischemia and/or small bowel obstruction. Patient was also noted to have ascites and cholelithiasis. I did see the patient in the ER, recommended that we continue Zosyn, patient was already on norepinephrine at 0.15 mcg/kg/h. Patient already received 2 L of fluids and I have ordered a third liter to be given I also recommended a bicarb drip to be started nasogastric tube showed mostly coffee ground material in the cup from gastric suctioning. According to the patient he has been complaining of abdominal pain for 1 week. And his abdomen has been distended for at least one week. Patient is also on a nonrebreather mask at 15 L/m. He has a central line in the right groin placed by the ER physician. Lactic acid was as high as 10, follow-up lactic acid after fluid boluses down to 6.4 I accepted the patient to be admitted to the ICU. Dr. shell already saw the patient and he is planning exploratory laparotomy in the next few hours. Reevaluated today on 01/27/2023, patient exploratory laparotomy with small bowel resection, jejunostomy, and this was done by Dr. shell yesterday. Patient was found to have ischemic small intestine and intra-abdominal adhesions. Patient required multiple pressors during the surgery and after the surgery, he was also on pressors prior to going to OR. Patient remains intubated and mechanically ventilated. He is on assist control rate of 16 tidal volume 500 FiO2 40% and PEEP of 5. ABG showed a pO2 of 17 pCO2 of 30 pH of 7.35, patient remains on bicarb drip. Patient also had some intraoperative and postoperative blood loss, hemoglobin went down to as low as 6.1, received so far 4 units of packed RBCs and his last hemoglobin is 8.9 at 11:30 AM no further active bleeding noted from the stoma. Patient is empirically on Zosyn, he remains hypotensive in spite of multiple drips including norepinephrine and 32 mcg/m, he is also on vasopressin at 0.4 units per minute Rodrigue-Synephrine at 1.1 mcg/kg/m propofol at 25 mcg/kg/m is also on bicarb drip 150 mEq at 75 mL per hour patient is having borderline urine output with urine output of 50 mL per hour. His sister and family members are apparently aware of his poor prognosis, Dr. shell updated the family yesterday after the surgery on the overall prognostic picture, and CODE STATUS was changed to DO NOT RESUSCITATE. In the meantime we will continue all present supportive care measures on this patient. Although the patient is very critically ill, and prognosis is extremely guarded Reevaluated today on 01/28/2023, patient remains in the ICU, intubated and mechanically ventilated. His assist-control rate is 16 tidal volume is 500 FiO2 40% PEEP of 5 ABG showed a pO2 of 129 pCO2 32 pH of 7.40 and I cut down his FiO2 to 35%. Patient is off propofol this morning and he is able to follow instructions, seems to comprehend, and seems to be relatively intact. However the patient is still requiring significant amount of drips/pressors he is on vasopressin at 0.04 units. Hour is also on norepinephrine at 19 mcg/m, Rodrigue- Synephrine has been discontinued. His IV fluid is down to 75 mL per hour and his bicarb is down to 25 ML per hour drip. Remains on amiodarone, patient is on 0.5 mg/m, and he is yet to be seen by cardiology today, seems to be in atrial flutter. WBC count today remains elevated at 24.4 hemoglobin is 9.4, lactic acid is 7.3, patient will receive another bolus of saline this morning. Elected lites are normal renal profile is improving bicarb is down to 17 and his creatinine is down to 1.37, liver enzymes remain elevated with AST of 591 and ALT of 449 chest x-ray showed minimal basilar atelectasis, no clear-cut evidence of infiltrates. Patient was reevaluated today on 01/29/2023, remains in the ICU, intubated and mechanically ventilated. Patient continues to have issues with atrial fibrillation and RVR, remains on amiodarone drip, he is receiving beta blockers by cardiology however that seems to be dropping his blood pressure, patient remains on relatively high dose of norepinephrine at 0.16 mcg/kg/m and today I suggested transitioning norepinephrine to Rodrigue-Synephrine since he was doing much better as far as tachycardia while he was on Rodrigue-Synephrine. We'll try to start Rodrigue-Synephrine and gradually tapered down his norepinephrine hoping that his tachycardia would get better with Rodrigue-Synephrine on board. Remains on propofol at 7 mcg/kg/m remains on Lovenox remains on Zosyn remains on amiodarone at 0.5 mg/m. Patient did receive metoprolol 2.5 mg IV push slowly earlier. Ventilator smith he is on assist control rate of 16 tidal volume 500 FiO2 35% PEEP of 5 up gases showed a BNP O2 of 147 pCO2 42 pH of 7.41. Hence his FiO2 was brought down to 35% from 40% his sodium bicarb corrected nicely hence I'm stopping his sodium bicarb drip his urine output is about 100 mL/h, patient remains on IV fluid about 1 25 mL per hour. Not to mention the patient was started on TPN. Overall the patient remains critically ill, he is not ready for weaning mostly because of his cardiac issues and intermittent episodes of hypotension syndrome requiring significant amount of pressors Objective - Vital Signs Vital signs: Vital Signs Temp 99.0 F 01/29/23 12:00 Pulse 71 01/29/23 12:00 Resp 21 01/29/23 12:00 BP 96/64 01/29/23 12:00 Pulse Ox 98 01/29/23 12:00 FiO2 35 01/29/23 12:00 Intake & Output 01/28/23 01/29/23 01/29/23 18:59 06:59 18:59 Intake Total 3483.843 2248.845 1206.216 Output Total 1612 1070 695 Balance 4511.166 0172.845 511.216 Weight 66.2 kg 71.7 kg 71.7 kg Intake: IV 2891 0260 948 Dextrose 5% in Water 1, 425 275 75 000 ml @ 25 mls/hr IV . Q24H [facility] with Sodium Bicarb (1 Meq/ml) 150 ml Rx#:[id number] Fat Emulsion 20% 250 ml 210 In Empty Bag 1 bag @ 21 mls/hr IV TuFr [facility] Rx#: [id number] Mvi, Adult No.4 with Vit 165 330 180 K 10 ml Trace (Conc-1Ml/ Dose) 1 ml In Amino Acid 5%-D15w+Lytes*E* 1,000 ml @ 30 mls/hr IV .Q24H [facility] Rx#:[id number] Piperacillin-Tazobactam 3 200 100 .375 gm In Sodium Chloride 0.9% 100 ml @ 25 mls/hr IVPB Q8H [facility] Rx#: [id number] Pressure Bag (0.9 Sodium 36 33 18 Chloride) Sodium Chloride 0.9% 1, 1065 1100 675 000 ml @ 125 mls/hr IV . Q8H [facility] Rx#:[id number] Sodium Chloride 0.9% 1, 1000 000 ml @ 999 mls/hr IV . Q1H1M [facility] Rx#:[id number] Intake, IV Titration 592.843 200.845 258.216 Amount Amiodarone 450 mg In 218.615 Dextrose 5% in Water 250 ml @ 0.5 MG/MIN 16.667 mls/hr IV .Q15H [facility] [place] Rx#: [id number] Amiodarone 450 mg In 131.392 Dextrose 5% in Water 250 ml @ 0.5 MG/MIN 16.667 mls/hr IV .Q15H [facility] Rx#: [id number] Norepinephrine 32 mg In 202.128 31.264 17.258 Sodium Chloride 0.9% 218 ml @ 0.03 MCG/KG/MIN 0. 907 mls/hr IV .Q24H [facility] Rx#:[id number] Phenylephrine 40 mg In 91.782 40.958 Sodium Chloride 0.9% 250 ml @ 0.5 MCG/KG/MIN 12. 287 mls/hr IV .[id number] [facility] Rx#:[id number] Potassium Chloride 20 meq 200 In Water For Injection 1 100ml.bag @ 50 mls/hr IVPB Q2H [facility] Rx#: [id number] Vasopressin 60 unit In 7.114 Sodium Chloride 0.9% 150 ml @ 0.03 UNITS/MIN 4.59 mls/hr IV .Q24H [facility] Rx#: [id number] propofoL 1,000 mg In 73.204 38.189 Empty Bag 1 bag @ 15 MCG/ KG/MIN 5.348 mls/hr IV . [id number] [facility] Rx#:[id number] Output: Gastric Drainage 300 Drainage 250 Left Abdomen 250 Urine 832 680 470 Stool 230 390 225 Other: Voiding Method Indwelling Catheter Indwelling Catheter Indwelling Catheter ABP, PAP, CO, CI - Last Documented Arterial Blood Pressure 99/53 - Exam Physical Exam: Revealed 67-year-old white male intubated, off propofol, sedated. Head: Atraumatic, normocephalic., endotracheal tube is intact. HEENT:[Neck is supple.] [No neck masses.] [No thyromegaly.] [No JVD.] Continues to have dry mucous membranes. Chest: Symmetrical chest expansion. [Clear throughout, no crackles, no rhonchi, no wheezes.] Cardiac Exam: [Tachycardic, normal S1 and S2, no S3 gallop. No murmur. Abdomen: Soft. Nondistended. Midline incisional dressing clean dry and intact. Jejunostomy on the left with dark greenish output Extremities: [No clubbing, no edema, no cyanosis.] Neurological Exam: Sedated, could not be assessed. Psychiatric: Could not assess. Skin: No rashes. - Labs CBC & Chem 7: 01/29/23 04:06 01/29/23 04:06 Labs: Abnormal Lab Results - Last 24 Hours (Table) 01/26/23 01/28/23 01/29/23 Range/Units 21:18 17:35 00:01 WBC (3.8-10.6) k/uL RBC (4.30-5.90) m/uL Hgb (13.0-17.5) gm/dL Hct (39.0-53.0) % MCV (80.0-100.0) fL RDW (11.5-15.5) % Plt Count (150-450) k/uL ABG pO2 (83-108) mmHg ABG HCO3 (21-25) mmol/L ABG Total CO2 (19-24) mmol/L ABG O2 Saturation (94-97) % Potassium (3.5-5.1) mmol/L BUN (9-20) mg/dL Glucose (74-99) mg/dL POC Glucose (mg/dL) 122 H 127 H (70-110) mg/dL Calcium (8.4-10.2) mg/dL Phosphorus (2.5-4.5) mg/dL Magnesium (1.6-2.3) mg/dL Total Bilirubin (0.2-1.3) mg/dL AST (17-59) U/L ALT (4-49) U/L Total Protein (6.3-8.2) g/dL Albumin (3.5-5.0) g/dL Crossmatch See Detail 01/29/23 01/29/23 01/29/23 Range/Units 04:06 04:06 05:58 WBC 20.4 H (3.8-10.6) k/uL RBC 3.19 L (4.30-5.90) m/uL Hgb 8.3 L (13.0-17.5) gm/dL Hct 25.4 L (39.0-53.0) % MCV 79.6 L (80.0-100.0) fL RDW 18.9 H (11.5-15.5) % Plt Count 105 L (150-450) k/uL ABG pO2 (83-108) mmHg ABG HCO3 (21-25) mmol/L ABG Total CO2 (19-24) mmol/L ABG O2 Saturation (94-97) % Potassium 3.3 L (3.5-5.1) mmol/L BUN 25 H (9-20) mg/dL Glucose 122 H (74-99) mg/dL POC Glucose (mg/dL) 128 H (70-110) mg/dL Calcium 7.0 L (8.4-10.2) mg/dL Phosphorus 2.1 L (2.5-4.5) mg/dL Magnesium 2.4 H (1.6-2.3) mg/dL Total Bilirubin 1.4 H (0.2-1.3) mg/dL AST 508 H (17-59) U/L ALT 486 H (4-49) U/L Total Protein 3.9 L (6.3-8.2) g/dL Albumin 1.7 L (3.5-5.0) g/dL Crossmatch 01/29/23 01/29/23 Range/Units 06:24 12:06 WBC (3.8-10.6) k/uL RBC (4.30-5.90) m/uL Hgb (13.0-17.5) gm/dL Hct (39.0-53.0) % MCV (80.0-100.0) fL RDW (11.5-15.5) % Plt Count (150-450) k/uL ABG pO2 147 H (83-108) mmHg ABG HCO3 27 H (21-25) mmol/L ABG Total CO2 28 H (19-24) mmol/L ABG O2 Saturation 98.6 H (94-97) % Potassium (3.5-5.1) mmol/L BUN (9-20) mg/dL Glucose (74-99) mg/dL POC Glucose (mg/dL) 117 H (70-110) mg/dL Calcium (8.4-10.2) mg/dL Phosphorus (2.5-4.5) mg/dL Magnesium (1.6-2.3) mg/dL Total Bilirubin (0.2-1.3) mg/dL AST (17-59) U/L ALT (4-49) U/L Total Protein (6.3-8.2) g/dL Albumin (3.5-5.0) g/dL Crossmatch Microbiology - Last 24 Hours (Table) 01/26/23 19:00 Gram Stain - Final Sputum Sputum Culture - Final Leila albicans 01/26/23 05:50 Blood Culture - Preliminary Blood 01/26/23 05:28 Blood Culture - Preliminary Blood Assessment and Plan Assessment: Impression:Exploratory laparotomy with small bowel resection, jejunostomy, postoperative day #3 Acute hypoxic respiratory failure secondary to abdominal sepsis and septic shock, with extensive bowel ischemia Abdominal sepsis and septic shock, still requiring norepinephrine at relatively high dose. Acute lactic acidosis secondary to above /bowel ischemia and sepsis with septic shock Paroxysmal atrial fibrillation History of benign essential hypertension Ventral hernia Acute kidney injury secondary to sepsis and septic shock/suspect acute tubular n ecrosis improving steadily. Recommendation: Continue ventilatory support Continue to monitor in ICU Continue hemodynamic support and titrate pressors down if possible will continue norepinephrine and will add Rodrigue-Synephrine with the hope of cutting down on the levophed Continue antibiotics/Zosyn Continue sedation This continue sodium bicarb drip Continue IV fluids at 1 25 mL per hour Continue to monitor urine output which is roughly about 100 mL/h right now Continue Solu-Cortef for now Transfuse for any hemoglobin below 7 if necessary. Continue GI and DVT prophylaxis Continue TPN Overall prognosis remains poor and guarded. Patient remains quite critically ill. Critical care time is over 30 minutes We'll continue to follow Time with Patient: Greater than 30
--- NOTE | 2023-01-29 12:52 | PN ---
PROGRESS NOTE SUBJECTIVE: This is a 67-year-old gentleman, who is admitted to hospital with ischemic bowel and we have been consulted because of atrial fibrillation. He remains in atrial fibrillation with poorly controlled ventricular rate, on IV amiodarone. We tried to give him IV Lopressor yesterday, following which he actually slowed down quite a bit, while initially he became hypotensive, subsequently, his blood pressures were also good. This morning, unfortunately, he developed atrial fibrillation with RVR again. I will try to give him Lopressor 2.5 mg today and see if this makes a difference and use the Levophed as needed. The patient is still intubated on vent and looks fairly marginal. OBJECTIVE: VITAL SIGNS: Heart rate is 120 beats per minute, blood pressure is 80/60, respiratory rate is 16, O2 saturation is 98%. NECK: There is no jugular venous distention. CHEST: Reveals good air entry bilaterally. I do not hear any crackles or rhonchi. HEART: Reveals first and second heart sounds. No gallop. First and second heart sounds. Systolic murmur at the apex. ABDOMEN: Soft. EXTREMITIES: Do not reveal any edema. Peripheral pulses are felt. ASSESSMENT AND PLAN: Persistent atrial fibrillation with poorly controlled ventricular rate. We will resume anticoagulant when okay with the surgeons. Continue the IV amiodarone. Continue Lopressor as tolerated. MMODL / IJN: [id number] /
[2023-01-29] MEDS: AMIODARONE 450 MG in DEXTROSE 5% IN WATER 250 ML IV SCH ×2 (14:02)
[2023-01-29] MEDS: POTASSIUM CHLORIDE 10 MEQ in WATER FOR INJECTION 1 100ML.BAG IVPB SCH ×5 (14:27→23:09)
--- NOTE | 2023-01-29 14:35 | P.PN ---
Subjective Progress Note Date: 01/28/23 Principal diagnosis: Sepsis/ischemic small intestine Patient is a 67-year-old male with a past medical history negative for atrial fibrillation diabetes mellitus hypertension PE seizure disorder and dementia patient was brought into the hospital for evaluation of a syncopal episode , patient did have a CT abdominal pelvis suggestive of small bowel ischemia status post laparotomy patient was noticed to have ischemic small bowel intestine intra-abdominal adhesion requiring small bowel resection and jejunostomy and admission to the ICU. On today's evaluation of that is 01/28/2023, the patient did have a low-grade fever of 100.6F last night and 100.2F this morning, the patient remains to be intubated on the vent, FiO2 at 35%, no significant purulent secretion through the ET, oriented changes reported by the nursing staff. Patient white count is slightly up at 24.4, creatinine is 1.37, blood culture so far pending Objective - Vital Signs Vital signs: Vital Signs Temp 99.0 F 01/28/23 17:00 Pulse 76 01/28/23 19:00 Resp 20 01/28/23 19:00 BP 103/63 01/28/23 18:45 Pulse Ox 99 01/28/23 19:00 FiO2 35 01/28/23 19:00 Intake & Output 01/28/23 01/28/23 01/29/23 06:59 18:59 06:59 Intake Total 2285.213 3483.843 8.063 Output Total 1630 1612 Balance 233.666 5118.843 8.063 Weight 66.2 kg 66.2 kg Intake: IV 1896 2891 Dextrose 5% in Water 1, 900 425 000 ml @ 25 mls/hr IV . Q24H [facility] with Sodium Bicarb (1 Meq/ml) 150 ml Rx#:[id number] Magnesium Sulfate-D5w Pmx 200 1 gm In Dextrose/Water 1 100ml.bag @ 100 mls/hr IVPB Q1H [facility] Rx#: [id number] Mvi, Adult No.4 with Vit 165 K 10 ml Trace (Conc-1Ml/ Dose) 1 ml In Amino Acid 5%-D15w+Lytes*E* 1,000 ml @ 30 mls/hr IV .Q24H [facility] Rx#:[id number] Piperacillin-Tazobactam 3 100 200 .375 gm In Sodium Chloride 0.9% 100 ml @ 25 mls/hr IVPB Q8H [facility] Rx#: [id number] Pressure Bag (0.9 Sodium 36 36 Chloride) Sodium Chloride 0.9% 1, 660 1065 000 ml @ 100 mls/hr IV . Q10H [facility] Rx#:[id number] Sodium Chloride 0.9% 1, 1000 000 ml @ 999 mls/hr IV . Q1H1M [facility] Rx#:[id number] Intake, IV Titration 389.213 592.843 8.063 Amount Amiodarone 450 mg In 218.615 Dextrose 5% in Water 250 ml @ 0.5 MG/MIN 16.667 mls/hr IV .Q15H [facility] Rx#: [id number] Norepinephrine 32 mg In 61.689 202.128 8.063 Sodium Chloride 0.9% 218 ml @ 0.03 MCG/KG/MIN 0. 907 mls/hr IV .Q24H [facility] Rx#:[id number] Phenylephrine 40 mg In 72.087 91.782 Sodium Chloride 0.9% 250 ml @ 0.5 MCG/KG/MIN 12. 287 mls/hr IV .[id number] [facility] Rx#:[id number] Piperacillin-Tazobactam 3 100 .375 gm In Sodium Chloride 0.9% 100 ml @ 25 mls/hr IVPB Q8H [facility] Rx#: [id number] Vasopressin 60 unit In 124.16 7.114 Sodium Chloride 0.9% 150 ml @ 0.03 UNITS/MIN 4.59 mls/hr IV .Q24H [facility] Rx#: [id number] propofoL 1,000 mg In 31.277 73.204 Empty Bag 1 bag @ 15 MCG/ KG/MIN 5.348 mls/hr IV . [id number] [facility] Rx#:[id number] Output: Gastric Drainage 300 Drainage 250 Left Abdomen 250 Urine 1630 832 Stool 230 Other: Voiding Method Indwelling Catheter Indwelling Catheter ABP, PAP, CO, CI - Last Documented Arterial Blood Pressure 101/62 - Exam GENERAL DESCRIPTION: An elderly male intubated on the vent RESPIRATORY SYSTEM: Unlabored breathing , decreased breath sounds at bases HEART: S1 S2 regular rate and rhythm , ABDOMEN: Soft , midline incision is intact EXTREMITIES: No edema feet - Labs CBC & Chem 7: 01/29/23 04:06 01/29/23 13:05 Labs: Abnormal Lab Results - Last 24 Hours (Table) 01/27/23 01/27/23 01/27/23 Range/Units 18:00 18:13 18:18 WBC 19.8 H 15.8 H (3.8-10.6) k/uL RBC 3.75 L 3.63 L (4.30-5.90) m/uL Hgb 9.6 L 9.3 L (13.0-17.5) gm/dL Hct 29.4 L 28.8 L (39.0-53.0) % MCV 78.4 L 79.3 L (80.0-100.0) fL RDW 18.6 H 18.0 H (11.5-15.5) % Plt Count 138 L 134 L (150-450) k/uL PT 17.3 H (9.0-12.0) sec INR 1.7 H (<1.2) APTT 38.7 H (22.0-30.0) sec Fibrinogen (200-500) mg/dL ABG pCO2 (35-45) mmHg ABG pO2 (83-108) mmHg ABG HCO3 (21-25) mmol/L ABG O2 Saturation (94-97) % ABG Lactic Acid (0.5-1.6) mmol/L Carbon Dioxide (22-30) mmol/L BUN (9-20) mg/dL Creatinine (0.66-1.25) mg/dL POC Glucose (mg/dL) (70-110) mg/dL Calcium (8.4-10.2) mg/dL Total Bilirubin (0.2-1.3) mg/dL AST (17-59) U/L ALT (4-49) U/L Total Protein (6.3-8.2) g/dL Albumin (3.5-5.0) g/dL 01/28/23 01/28/23 01/28/23 Range/Units 04:00 04:00 04:00 WBC 24.4 H (3.8-10.6) k/uL RBC 3.64 L (4.30-5.90) m/uL Hgb 9.4 L (13.0-17.5) gm/dL Hct 28.3 L (39.0-53.0) % MCV 77.8 L (80.0-100.0) fL RDW 18.8 H (11.5-15.5) % Plt Count 114 L (150-450) k/uL PT 16.5 H (9.0-12.0) sec INR 1.7 H (<1.2) APTT 37.0 H (22.0-30.0) sec Fibrinogen 522 H (200-500) mg/dL ABG pCO2 (35-45) mmHg ABG pO2 (83-108) mmHg ABG HCO3 (21-25) mmol/L ABG O2 Saturation (94-97) % ABG Lactic Acid (0.5-1.6) mmol/L Carbon Dioxide 17 L (22-30) mmol/L BUN 31 H (9-20) mg/dL Creatinine 1.37 H (0.66-1.25) mg/dL POC Glucose (mg/dL) (70-110) mg/dL Calcium 6.9 L (8.4-10.2) mg/dL Total Bilirubin 1.7 H (0.2-1.3) mg/dL AST 591 H (17-59) U/L ALT 449 H (4-49) U/L Total Protein 4.2 L (6.3-8.2) g/dL Albumin 2.0 L (3.5-5.0) g/dL 01/28/23 01/28/23 01/28/23 Range/Units 04:00 05:50 17:35 WBC (3.8-10.6) k/uL RBC (4.30-5.90) m/uL Hgb (13.0-17.5) gm/dL Hct (39.0-53.0) % MCV (80.0-100.0) fL RDW (11.5-15.5) % Plt Count (150-450) k/uL PT (9.0-12.0) sec INR (<1.2) APTT (22.0-30.0) sec Fibrinogen (200-500) mg/dL ABG pCO2 32 L (35-45) mmHg ABG pO2 129 H (83-108) mmHg ABG HCO3 19 L (21-25) mmol/L ABG O2 Saturation 98.3 H (94-97) % ABG Lactic Acid 7.3 H* (0.5-1.6) mmol/L Carbon Dioxide (22-30) mmol/L BUN (9-20) mg/dL Creatinine (0.66-1.25) mg/dL POC Glucose (mg/dL) 122 H (70-110) mg/dL Calcium (8.4-10.2) mg/dL Total Bilirubin (0.2-1.3) mg/dL AST (17-59) U/L ALT (4-49) U/L Total Protein (6.3-8.2) g/dL Albumin (3.5-5.0) g/dL Microbiology - Last 24 Hours (Table) 01/26/23 19:00 Gram Stain - Preliminary Sputum Sputum Culture - Preliminary Leila albicans 01/26/23 05:50 Blood Culture - Preliminary Blood 01/26/23 05:28 Blood Culture - Preliminary Blood Assessment and Plan (1) Ischemic bowel disease Current Visit: Yes Status: Acute Code(s): K55.9 - VASCULAR DISORDER OF INTESTINE, UNSPECIFIED SNOMED Code(s): 03020469 (2) Sepsis Current Visit: Yes Status: Acute Code(s): A41.9 - SEPSIS, UNSPECIFIED ORGANISM SNOMED Code(s): 57016884 Plan: 1patient present to hospital with sepsis/septic shock in this patient with hypotension fever elevated white count tachycardia source is abdominal pain in this patient noticed to have small bowel ischemia s/p laparotomy with small b owel resection and jejunostomy, we will need to cover for the enteric gram- negative the likely pathogen for this episode of sepsis/septic shock. 2patient remains to be critically ill and we will continue the patient on Zosyn 3.7 g every 8 hours while waiting for the cultures to finalize Sister at the bedside questions concerned were answered Dictation was produced using [employer] dictation software. please excuse any grammatical, word or spelling errors. Time with Patient: Less than 30
[2023-01-29] MEDS ORDERED: [UNRECOGNIZED DRUG - REMARK] IV SCH ×4 (15:00)
[2023-01-29] MEDS ORDERED: SODIUM PHOSPHATE 15 MMOL in DEXTROSE 5% IN WATER 250 ML IVPB ONE ×2 (15:00)
--- NOTE | 2023-01-29 15:35 | P.PN ---
Subjective Progress Note Date: 01/29/23 Principal diagnosis: Sepsis/ischemic small intestine Patient is a 67-year-old male with a past medical history negative for atrial fibrillation diabetes mellitus hypertension PE seizure disorder and dementia patient was brought into the hospital for evaluation of a syncopal episode , patient did have a CT abdominal pelvis suggestive of small bowel ischemia status post laparotomy patient was noticed to have ischemic small bowel intestine intra-abdominal adhesion requiring small bowel resection and jejunostomy and admission to the ICU. On today's evaluation of that is 01/29/2023, the patient is afebrile this morning, the patient remains to be intubated on the vent, FiO2 at 35%, no significant purulent secretion through the ET, patient is requiring low-dose pressor support, no other changes reported by the nursing staff. Patient white count is down to 20.4, creatinine is 0.71, blood culture so far pending Objective - Vital Signs Vital signs: Vital Signs Temp 99.0 F 01/29/23 12:00 Pulse 70 01/29/23 13:00 Resp 17 01/29/23 13:00 BP 101/62 01/29/23 13:00 Pulse Ox 98 01/29/23 13:00 FiO2 35 01/29/23 12:00 Intake & Output 01/28/23 01/29/23 01/29/23 18:59 06:59 18:59 Intake Total 3483.843 2248.845 1403.270 Output Total 1612 1070 745 Balance 3188.191 6791.845 658.270 Weight 66.2 kg 71.7 kg 71.7 kg Intake: IV 2891 2048 1076 Dextrose 5% in Water 1, 425 275 75 000 ml @ 25 mls/hr IV . Q24H [facility] with Sodium Bicarb (1 Meq/ml) 150 ml Rx#:[id number] Fat Emulsion 20% 250 ml 210 In Empty Bag 1 bag @ 21 mls/hr IV TuFr [facility] Rx#: [id number] Mvi, Adult No.4 with Vit 165 330 180 K 10 ml Trace (Conc-1Ml/ Dose) 1 ml In Amino Acid 5%-D15w+Lytes*E* 1,000 ml @ 30 mls/hr IV .Q24H [facility] Rx#:[id number] Piperacillin-Tazobactam 3 200 100 .375 gm In Sodium Chloride 0.9% 100 ml @ 25 mls/hr IVPB Q8H [facility] Rx#: [id number] Pressure Bag (0.9 Sodium 36 33 21 Chloride) Sodium Chloride 0.9% 1, 1065 1100 800 000 ml @ 125 mls/hr IV . Q8H [facility] Rx#:[id number] Sodium Chloride 0.9% 1, 1000 000 ml @ 999 mls/hr IV . Q1H1M [facility] Rx#:[id number] Intake, IV Titration 592.843 200.845 327.270 Amount Amiodarone 450 mg In 218.615 Dextrose 5% in Water 250 ml @ 0.5 MG/MIN 16.667 mls/hr IV .Q15H [facility] Rx#: [id number] Amiodarone 450 mg In 131.392 Dextrose 5% in Water 250 ml @ 0.5 MG/MIN 16.667 mls/hr IV .Q15H [facility] Rx#: [id number] Norepinephrine 32 mg In 202.128 31.264 17.258 Sodium Chloride 0.9% 218 ml @ 0.03 MCG/KG/MIN 0. 907 mls/hr IV .Q24H [facility] Rx#:[id number] Phenylephrine 40 mg In 91.782 110.012 Sodium Chloride 0.9% 250 ml @ 0.5 MCG/KG/MIN 12. 287 mls/hr IV .[id number] [facility] Rx#:[id number] Potassium Chloride 20 meq 200 In Water For Injection 1 100ml.bag @ 50 mls/hr IVPB Q2H [facility] Rx#: [id number] Vasopressin 60 unit In 7.114 Sodium Chloride 0.9% 150 ml @ 0.03 UNITS/MIN 4.59 mls/hr IV .Q24H [facility] Rx#: [id number] propofoL 1,000 mg In 73.204 38.189 Empty Bag 1 bag @ 15 MCG/ KG/MIN 5.348 mls/hr IV . [id number] [facility] Rx#:[id number] Output: Gastric Drainage 300 Drainage 250 Left Abdomen 250 Urine 832 680 520 Stool 230 390 225 Other: Voiding Method Indwelling Catheter Indwelling Catheter Indwelling Catheter ABP, PAP, CO, CI - Last Documented Arterial Blood Pressure 96/51 - Exam GENERAL DESCRIPTION: An elderly male intubated on the vent RESPIRATORY SYSTEM: Unlabored breathing , decreased breath sounds at bases HEART: S1 S2 regular rate and rhythm , ABDOMEN: Soft , midline incision is intact EXTREMITIES: No edema feet - Labs CBC & Chem 7: 01/29/23 04:06 01/29/23 13:05 Labs: Abnormal Lab Results - Last 24 Hours (Table) 01/26/23 01/28/23 01/29/23 Range/Units 21:18 17:35 00:01 WBC (3.8-10.6) k/uL RBC (4.30-5.90) m/uL Hgb (13.0-17.5) gm/dL Hct (39.0-53.0) % MCV (80.0-100.0) fL RDW (11.5-15.5) % Plt Count (150-450) k/uL ABG pO2 (83-108) mmHg ABG HCO3 (21-25) mmol/L ABG Total CO2 (19-24) mmol/L ABG O2 Saturation (94-97) % Potassium (3.5-5.1) mmol/L BUN (9-20) mg/dL Glucose (74-99) mg/dL POC Glucose (mg/dL) 122 H 127 H (70-110) mg/dL Calcium (8.4-10.2) mg/dL Phosphorus (2.5-4.5) mg/dL Magnesium (1.6-2.3) mg/dL Total Bilirubin (0.2-1.3) mg/dL AST (17-59) U/L ALT (4-49) U/L Total Protein (6.3-8.2) g/dL Albumin (3.5-5.0) g/dL Crossmatch See Detail 01/29/23 01/29/23 01/29/23 Range/Units 04:06 04:06 05:58 WBC 20.4 H (3.8-10.6) k/uL RBC 3.19 L (4.30-5.90) m/uL Hgb 8.3 L (13.0-17.5) gm/dL Hct 25.4 L (39.0-53.0) % MCV 79.6 L (80.0-100.0) fL RDW 18.9 H (11.5-15.5) % Plt Count 105 L (150-450) k/uL ABG pO2 (83-108) mmHg ABG HCO3 (21-25) mmol/L ABG Total CO2 (19-24) mmol/L ABG O2 Saturation (94-97) % Potassium 3.3 L (3.5-5.1) mmol/L BUN 25 H (9-20) mg/dL Glucose 122 H (74-99) mg/dL POC Glucose (mg/dL) 128 H (70-110) mg/dL Calcium 7.0 L (8.4-10.2) mg/dL Phosphorus 2.1 L (2.5-4.5) mg/dL Magnesium 2.4 H (1.6-2.3) mg/dL Total Bilirubin 1.4 H (0.2-1.3) mg/dL AST 508 H (17-59) U/L ALT 486 H (4-49) U/L Total Protein 3.9 L (6.3-8.2) g/dL Albumin 1.7 L (3.5-5.0) g/dL Crossmatch 01/29/23 01/29/23 Range/Units 06:24 12:06 WBC (3.8-10.6) k/uL RBC (4.30-5.90) m/uL Hgb (13.0-17.5) gm/dL Hct (39.0-53.0) % MCV (80.0-100.0) fL RDW (11.5-15.5) % Plt Count (150-450) k/uL ABG pO2 147 H (83-108) mmHg ABG HCO3 27 H (21-25) mmol/L ABG Total CO2 28 H (19-24) mmol/L ABG O2 Saturation 98.6 H (94-97) % Potassium (3.5-5.1) mmol/L BUN (9-20) mg/dL Glucose (74-99) mg/dL POC Glucose (mg/dL) 117 H (70-110) mg/dL Calcium (8.4-10.2) mg/dL Phosphorus (2.5-4.5) mg/dL Magnesium (1.6-2.3) mg/dL Total Bilirubin (0.2-1.3) mg/dL AST (17-59) U/L ALT (4-49) U/L Total Protein (6.3-8.2) g/dL Albumin (3.5-5.0) g/dL Crossmatch Microbiology - Last 24 Hours (Table) 01/26/23 05:50 Blood Culture - Preliminary Blood 01/26/23 05:28 Blood Culture - Preliminary Blood 01/26/23 19:00 Gram Stain - Final Sputum Sputum Culture - Final Leila albicans Assessment and Plan (1) Ischemic bowel disease Current Visit: Yes Status: Acute Code(s): K55.9 - VASCULAR DISORDER OF INTESTINE, UNSPECIFIED SNOMED Code(s): 81629836 (2) Sepsis Current Visit: Yes Status: Acute Code(s): A41.9 - SEPSIS, UNSPECIFIED ORGANISM SNOMED Code(s): 85431957 Plan: 1patient present to hospital with sepsis/septic shock in this patient with hypotension fever elevated white count tachycardia source is abdominal pain in this patient noticed to have small bowel ischemia s/p laparotomy with small bowel resection and jejunostomy, we will need to cover for the enteric gram-negative the likely pathogen for this episode of sepsis/septic shock. 2patient did have minimal clinical improvement as requiring less pressor support, white count is trending down we will continue the patient on Zosyn 3.7 g every 8 hours while waiting for the cultures to finalize Sister at the bedside questions concerned were answered Dictation was produced using [employer] dictation software. please excuse any grammatical, word or spelling errors. Time with Patient: Less than 30
[2023-01-29] MEDS: VASOPRESSIN 60 UNIT in SODIUM CHLORIDE 0.9% 150 ML IV SCH (16:08)
[2023-01-29 17:45] LABS: Glucose,Whole Blood 122 mg/dL (70-110)
[2023-01-29] MEDS ORDERED: Potassium Replacement Protocol 1 EACH MISC MISCELLANE PRN (22:44)
[2023-01-29 23:52] LABS: Glucose,Whole Blood 116 mg/dL (70-110)
[2023-01-30] MEDS: INSULIN ASPART (NovoLOG) 100 UNIT/ML VIAL SQ SCH ×5 (00:03→23:33)
[2023-01-30] MEDS: POTASSIUM CHLORIDE 10 MEQ in WATER FOR INJECTION 1 100ML.BAG IVPB SCH (00:48)
[2023-01-30] MEDS: HYDROmorphone 0.5 MG/0.5 ML SYRINGE IVP PRN ×4 (02:01→21:41)
[2023-01-30] MEDS: PHENYLEPHRINE 40 MG in SODIUM CHLORIDE 0.9% 250 ML IV SCH ×3 (02:02→18:33)
[2023-01-30 04:25] LABS: Anisocytosis Slight; HCT 24.8 % (39.0-53.0); HGB 7.7 gm/dL (13.0-17.5); Hypochromasia Marked; MCH 24.8 pg (25.0-35.0); MCHC 31.2 g/dL (31.0-37.0); MCV 79.5 fL (80.0-100.0); Mean Platelet Volume 10.6; Microcytosis Slight; Poikilocytosis Moderate; RBC 3.13 m/uL (4.30-5.90); RDW 19.6 % (11.5-15.5); WBC 20.4 k/uL (3.8-10.6)
[2023-01-30 04:26] LABS: ALT 459 U/L (4-49); AST 422 U/L (17-59); African American GFR (CKD) >90 (>60 ml/min/1.73 sqM); Albumin 1.7 g/dL (3.5-5.0); Alkaline Phosphatase 62 U/L (38-126); Anion Gap 3 mmol/L; Blood Urea Nitrogen 24 mg/dL (9-20); Calcium 6.9 mg/dL (8.4-10.2); Carbon Dioxide 24 mmol/L (22-30); Chloride 112 mmol/L (98-107); Glucose 112 mg/dL (74-99); Magnesium 2.4 mg/dL (1.6-2.3); Non-African American GFR(CKD) >90 (>60 ml/min/1.73 sqM); Phosphorus 1.7 mg/dL (2.5-4.5); Potassium 4.1 mmol/L (3.5-5.1); Sodium 139 mmol/L (137-145); Total Bilirubin 2.2 mg/dL (0.2-1.3); Total Protein 3.8 g/dL (6.3-8.2)
[2023-01-30 04:47] LABS: Platelet Count 94 k/uL (150-450)
[2023-01-30] MEDS: AMIODARONE 450 MG in DEXTROSE 5% IN WATER 250 ML IV SCH ×4 (06:05→18:32)
[2023-01-30] MEDS: ARTIFICIAL TEARS-HYPROMELLOSE DROPS 15 ML BTL RIGHT EYE SCH ×2 (06:21→21:17)
[2023-01-30] MEDS: SODIUM CHLORIDE 0.9% 1,000 ML IV SCH ×3 (06:23→17:55)
[2023-01-30 06:28] LABS: ABG PCO2 34 mmHg (35-45); ABG PH 7.45 (7.35-7.45); ABG PO2 102 mmHg (83-108)
[2023-01-30] MEDS: PIPERACILLIN-TAZOBACTAM 3.375 GM in SODIUM CHLORIDE 0.9% 100 ML IVPB SCH ×3 (06:32→21:15)
[2023-01-30] MEDS: HYDROCORTISONE SUCCINATE 100 MG/2 ML VIAL IV SCH ×2 (08:15→21:15)
[2023-01-30] MEDS: PANTOPRAZOLE 40 MG/10 ML VIAL IVP SCH ×2 (08:16→21:14)
[2023-01-30] MEDS: CHLORHEXIDINE GLUCONATE 15 ML CUP MUCOUS MEM SCH ×2 (08:16→21:15)
[2023-01-30] MEDS: ENOXAPARIN 40 MG/0.4 ML SYRINGE SQ SCH (08:16)
--- NOTE | 2023-01-30 08:40 | XR ---
EXAMINATION TYPE: XR chest 1V portable DATE OF EXAM: 01/30/2023 CLINICAL HISTORY: Difficulty breathing progress study. TECHNIQUE: Single AP portable upright view of the chest is obtained. COMPARISON: Chest x-ray from one day earlier and older studies. FINDINGS: Stable endotracheal and orogastric tubes. Worsening right basilar opacity. Stable patchy left basilar opacity. Cardiac silhouette size Stable a nd within normal limits. Osseous structures are intact. IMPRESSION: Worsening right basilar acute infiltrate and/or atelectasis. Stable patchy left basilar a telectasis and/or acute infiltrate.
[2023-01-30] MEDS ORDERED: SODIUM CHLORIDE 0.9% 1,000 ML IV ONE (08:45)
[2023-01-30] MEDS ORDERED: SODIUM PHOSPHATE 30 MMOL in DEXTROSE 5% IN WATER 250 ML IVPB ONE ×2 (09:00)
[2023-01-30] MEDS: NOREPINEPHRINE 32 MG in SODIUM CHLORIDE 0.9% 218 ML IV SCH (09:10)
[2023-01-30] MEDS ORDERED: HEPARIN SODIUM 1,000 UN/ML (10ML VL) IV PRN (09:19)
[2023-01-30] MEDS ORDERED: HEPARIN SOD,PORK IN 0.45% NACL 25,000 UNIT in 0.45% NACL 1 250ML.BAG IV SCH (09:30)
--- NOTE | 2023-01-30 09:36 | P.PN ---
Progress Note - Text Progress Note Date: 01/30/23 The patient remains clinically unchanged. He is undergoing some CPAP trials. He still had significant output through his nasogastric tube. On exam vital signs appear stable. Abdomen soft. The NG tube was still producing 5-700 mL per 24 hours. As an ileus. I would not recommend any tube feeds this time. The medical service for question start IV heparin. This can be started. We will follow with you.
--- NOTE | 2023-01-30 09:37 | PN ---
PROGRESS NOTE SUBJECTIVE: A 67-year-old gentleman who is admitted to hospital following bowel surgery. Remains intubated and on vent. I have been consulted because of atrial fibrillation with rapid ventricular rate. He converted to sinus rhythm on IV amiodarone. We are still waiting permission from Surgery to start heparin. PHYSICAL EXAMINATION: GENERAL: Intubated, vent, sedated. Hypotensive, on pressors. VITAL SIGNS: Heart rate is 67 beats per minute, blood pressure is 91/62, respiratory rate 18. CHEST: Diminished air entry at the bases. HEART: First and second heart sounds. Systolic murmur at the apex. ABDOMEN: Soft. EXTREMITIES: 1+ edema. Peripheral pulses are felt. LABORATORY DATA: Labs show a hemoglobin of 7.7. Potassium is 4.1, creatinine is 0.5. ASSESSMENT: 1. Persistent atrial fibrillation, currently in sinus rhythm. 2. Bowel ischemia, status post surgery. PLAN: I will continue the patient on IV amiodarone. He will continue with the pressors for hypotension. Start anticoagulant when okay with Surgery. MMODL / IJN: [id number] /
[2023-01-30 09:47] LABS: Partial Thromboplastin Time 34.9 sec (22.0-30.0); Prothrombin Time 10.8 sec (9.0-12.0)
--- NOTE | 2023-01-30 11:09 | P.PN ---
Subjective Progress Note Date: 01/30/23 Principal diagnosis: Acute abdominal sepsis and ischemic bowel This is a 67-year-old white male with history of hypertension, chronic atrial fibrillation, type 2 diabetes, obstructive uropathy, and history of ventral hernia. Patient was brought into the ER because he had a syncopal episode while at the alf and upon EMS arrival the patient was noted to be very hypotensive. Indeed in the ER the patient was noted to be hypotensive, he was also noted to have significant lactic acidosis, significant anion gap, leukocytosis, urine was unremarkable, influenza screening are as the screening and COVID-[address] abdomen and pelvis showed findings hackett ggestive of small bowel ischemia and/or small bowel obstruction. Patient was also noted to have ascites and cholelithiasis. I did see the patient in the ER, recommended that we continue Zosyn, patient was already on norepinephrine at 0.15 mcg/kg/h. Patient already received 2 L of fluids and I have ordered a third liter to be given I also recommended a bicarb drip to be started nasogastric tube showed mostly coffee ground material in the cup from gastric suctioning. According to the patient he has been complaining of abdominal pain for 1 week. And his abdomen has been distended for at least one week. Patient is also on a nonrebreather mask at 15 L/m. He has a central line in the right groin placed by the ER physician. Lactic acid was as high as 10, follow-up lactic acid after fluid boluses down to 6.4 I accepted the patient to be admitted to the ICU. Dr. shell already saw the patient and he is planning exploratory laparotomy in the next few hours. Reevaluated today on 01/27/2023, patient exploratory laparotomy with small bowel resection, jejunostomy, and this was done by Dr. shell yesterday. Patient was found to have ischemic small intestine and intra-abdominal adhesions. Patient required multiple pressors during the surgery and after the surgery, he was also on pressors prior to going to OR. Patient remains intubated and mechanically ventilated. He is on assist control rate of 16 tidal volume 500 FiO2 40% and PEEP of 5. ABG showed a pO2 of 17 pCO2 of 30 pH of 7.35, patient remains on bicarb drip. Patient also had some intraoperative and postoperative blood loss, hemoglobin went down to as low as 6.1, received so far 4 units of packed RBCs and his last hemoglobin is 8.9 at 11:30 AM no further active bleeding noted from the stoma. Patient is empirically on Zosyn, he remains hypotensive in spite of multiple drips including norepinephrine and 32 mcg/m, he is also on vasopressin at 0.4 units per minute Rodrigue-Synephrine at 1.1 mcg/kg/m propofol at 25 mcg/kg/m is also on bicarb drip 150 mEq at 75 mL per hour patient is having borderline urine output with urine output of 50 mL per hour. His sister and family members are apparently aware of his poor prognosis, Dr. shell updated the family yesterday after the surgery on the overall prognostic picture, and CODE STATUS was changed to DO NOT RESUSCITATE. In the meantime we will continue all present supportive care measures on this patient. Although the patient is very critically ill, and prognosis is extremely guarded Reevaluated today on 01/28/2023, patient remains in the ICU, intubated and mechanically ventilated. His assist-control rate is 16 tidal volume is 500 FiO2 40% PEEP of 5 ABG showed a pO2 of 129 pCO2 32 pH of 7.40 and I cut down his FiO2 to 35%. Patient is off propofol this morning and he is able to follow instructions, seems to comprehend, and seems to be relatively intact. However the patient is still requiring significant amount of drips/pressors he is on vasopressin at 0.04 units. Hour is also on norepinephrine at 19 mcg/m, Rodrigue- Synephrine has been discontinued. His IV fluid is down to 75 mL per hour and his bicarb is down to 25 ML per hour drip. Remains on amiodarone, patient is on 0.5 mg/m, and he is yet to be seen by cardiology today, seems to be in atrial flutter. WBC count today remains elevated at 24.4 hemoglobin is 9.4, lactic acid is 7.3, patient will receive another bolus of saline this morning. Elected lites are normal renal profile is improving bicarb is down to 17 and his creatinine is down to 1.37, liver enzymes remain elevated with AST of 591 and ALT of 449 chest x-ray showed minimal basilar atelectasis, no clear-cut evidence of infiltrates. Patient was reevaluated today on 01/29/2023, remains in the ICU, intubated and mechanically ventilated. Patient continues to have issues with atrial fibrillation and RVR, remains on amiodarone drip, he is receiving beta blockers by cardiology however that seems to be dropping his blood pressure, patient remains on relatively high dose of norepinephrine at 0.16 mcg/kg/m and today I suggested transitioning norepinephrine to Rodrigue-Synephrine since he was doing much better as far as tachycardia while he was on Rodrigue-Synephrine. We'll try to start Rodrigue-Synephrine and gradually tapered down his norepinephrine hoping that his tachycardia would get better with Rodrigue-Synephrine on board. Remains on propofol at 7 mcg/kg/m remains on Lovenox remains on Zosyn remains on amiodarone at 0.5 mg/m. Patient did receive metoprolol 2.5 mg IV push slowly earlier. Ventilator smith he is on assist control rate of 16 tidal volume 500 FiO2 35% PEEP of 5 up gases showed a BNP O2 of 147 pCO2 42 pH of 7.41. Hence his FiO2 was brought down to 35% from 40% his sodium bicarb corrected nicely hence I'm stopping his sodium bicarb drip his urine output is about 100 mL/h, patient remains on IV fluid about 1 25 mL per hour. Not to mention the patient was started on TPN. Overall the patient remains critically ill, he is not ready for weaning mostly because of his cardiac issues and intermittent episodes of hypotension syndrome requiring significant amount of pressors re elevated today on 01/30, patient remains in the ICU, intubated and mechanically ventilated. He is on assist control rate of 16 tidal volume 500 FiO2 35% and PEEP of 5 ABG showed a pO2 of 102 pCO2 34 pH of 7.45 patient remains on amiodarone at 0.5 mg/m remains on TPN with lipids he is on Rodrigue- Synephrine 1.2 mcg/kg/m propofol 10 mcg/kg/m IV fluid and 1 25 mL per hour remains on Solu-Cortef 50 mg IV push every 12 hours is also on Zosyn blood pr essure is marginal in spite of Rodrigue-Synephrine hence I recommended that the patient gets a bolus of 0.9 normal saline today, and I actually plan to hold his propofol today and give the patient mental status assessment and possibly a weaning trial with pressure support and CPAP. Yesterday the patient was having significant tachycardia however the patient responded well to transitioning norepinephrine to Rodrigue-Synephrine and his tachycardia did resolve. He is now in sinus rhythm and his rate is in the 70s. I believe she count is 20.4 hemoglobin is 7.7 electrolytes are normal renal profile remains normal. A blood sugar is also normal, liver enzymes remains a bit elevated with ALT of 459 and AST of 422 bilirubin is 2.2. Objective - Vital Signs Vital signs: Vital Signs Temp 100.0 F H 01/30/23 08:00 Pulse 68 01/30/23 10:00 Resp 20 01/30/23 10:00 BP 97/67 01/30/23 10:00 Pulse Ox 99 01/30/23 10:00 FiO2 35 01/30/23 08:00 Intake & Output 01/29/23 01/30/23 01/30/23 18:59 06:59 18:59 Intake Total 2799.845 2528.727 1926.255 Output Total 1530 510 455 Balance 5463.784 9077.727 1471.255 Weight 71.7 kg 74.6 kg Intake: IV 1896 1896 572 Dextrose 5% in Water 1, 75 000 ml @ 25 mls/hr IV . Q24H [facility] with Sodium Bicarb (1 Meq/ml) 150 ml Rx#:[id number] [facility], Adult No.4 with Vit 360 360 60 K 10 ml Trace (Conc-1Ml/ Dose) 1 ml In Amino Acid 5%-D15w+Lytes*E* 1,000 ml @ 30 mls/hr IV .Q24H [facility] Rx#:[id number] Pressure Bag (0.9 Sodium 36 36 12 Chloride) Sodium Chloride 0.9% 1, 1425 1500 500 000 ml @ 125 mls/hr IV . Q8H [facility] Rx#:[id number] Intake, IV Titration 903.845 505.661 5461.255 Amount Amiodarone 450 mg In 250 Dextrose 5% in Water 250 ml @ 0.5 MG/MIN 16.667 mls/hr IV .Q15H [facility] Rx#: [id number] Norepinephrine 32 mg In 17.258 Sodium Chloride 0.9% 218 ml @ 0.03 MCG/KG/MIN 0. 907 mls/hr IV .Q24H [facility] Rx#:[id number] Phenylephrine 40 mg In 209.048 351.577 87.321 Sodium Chloride 0.9% 250 ml @ 0.5 MCG/KG/MIN 12. 287 mls/hr IV .[id number] [facility] Rx#:[id number] Potassium Chloride 20 meq 400 In Water For Injection 1 100ml.bag @ 50 mls/hr IVPB Q2H [facility] Rx#: [id number] Sodium Chloride 0.9% 1, 1000 000 ml @ 999 mls/hr IV . Q1H1M [facility] Rx#:[id number] Sodium Phosphate 15 mmol 250 In Dextrose 5% in Water 250 ml @ 127.5 mls/hr IVPB ONCE [facility] Rx#: [id number] Sodium Phosphate 30 mmol 250 In Dextrose 5% in Water 250 ml @ 65 mls/hr IVPB ONCE [facility] Rx#:[id number] propofoL 1,000 mg In 27.539 31.150 16.934 Empty Bag 1 bag @ 15 MCG/ KG/MIN 5.348 mls/hr IV . [id number] [facility] Rx#:[id number] Output: Gastric Drainage 200 100 Urine 705 510 155 Stool 625 200 Other: Voiding Method Indwelling Catheter Indwelling Catheter Indwelling Catheter ABP, PAP, CO, CI - Last Documented Arterial Blood Pressure 97/48 - Exam Physical Exam: Revealed 67-year-old white male intubated, off propofol, sedated. However he is arousable and follows simple instructions Head: Atraumatic, normocephalic., endotracheal tube is intact. HEENT:[Neck is supple.] [No neck masses.] [No thyromegaly.] [No JVD.] Continues to have dry mucous membranes. Chest: Symmetrical chest expansion. [Clear throughout, no crackles, no rhonchi, no wheezes.] Cardiac Exam: Regular rate and rhythm normal S1 and S2, no S3 gallop. No murmur. Abdomen: Soft. Nondistended. Midline incisional dressing clean dry and intact. Jejunostomy on the left with dark greenish output Extremities: [No clubbing, no edema, no cyanosis.] Neurological Exam: Arousable, seems to be generally weak but follows instructi ons Psychiatric: Normal mood, flat affect, normal mental status Skin: No rashes. - Labs CBC & Chem 7: 01/30/23 04:02 01/30/23 04:02 Labs: Abnormal Lab Results - Last 24 Hours (Table) 01/29/23 01/29/23 01/29/23 Range/Units 12:06 17:43 23:49 WBC (3.8-10.6) k/uL RBC (4.30-5.90) m/uL Hgb (13.0-17.5) gm/dL Hct (39.0-53.0) % MCV (80.0-100.0) fL MCH (25.0-35.0) pg RDW (11.5-15.5) % Plt Count (150-450) k/uL APTT (22.0-30.0) sec ABG pCO2 (35-45) mmHg Chloride (98-107) mmol/L BUN (9-20) mg/dL Creatinine (0.66-1.25) mg/dL Glucose (74-99) mg/dL POC Glucose (mg/dL) 117 H 122 H 116 H (70-110) mg/dL Calcium (8.4-10.2) mg/dL Phosphorus (2.5-4.5) mg/dL Magnesium (1.6-2.3) mg/dL Total Bilirubin (0.2-1.3) mg/dL AST (17-59) U/L ALT (4-49) U/L Total Protein (6.3-8.2) g/dL Albumin (3.5-5.0) g/dL 01/30/23 01/30/23 01/30/23 Range/Units 04:02 04:02 06:15 WBC 20.4 H (3.8-10.6) k/uL RBC 3.13 L (4.30-5.90) m/uL Hgb 7.7 L (13.0-17.5) gm/dL Hct 24.8 L (39.0-53.0) % MCV 79.5 L (80.0-100.0) fL MCH 24.8 L (25.0-35.0) pg RDW 19.6 H (11.5-15.5) % Plt Count 94 L (150-450) k/uL APTT (22.0-30.0) sec ABG pCO2 34 L (35-45) mmHg Chloride 112 H (98-107) mmol/L BUN 24 H (9-20) mg/dL Creatinine 0.51 L (0.66-1.25) mg/dL Glucose 112 H (74-99) mg/dL POC Glucose (mg/dL) (70-110) mg/dL Calcium 6.9 L (8.4-10.2) mg/dL Phosphorus 1.7 L (2.5-4.5) mg/dL Magnesium 2.4 H (1.6-2.3) mg/dL Total Bilirubin 2.2 H (0.2-1.3) mg/dL AST 422 H (17-59) U/L ALT 459 H (4-49) U/L Total Protein 3.8 L (6.3-8.2) g/dL Albumin 1.7 L (3.5-5.0) g/dL 01/30/23 Range/Units 09:20 WBC (3.8-10.6) k/uL RBC (4.30-5.90) m/uL Hgb (13.0-17.5) gm/dL Hct (39.0-53.0) % MCV (80.0-100.0) fL MCH (25.0-35.0) pg RDW (11.5-15.5) % Plt Count (150-450) k/uL APTT 34.9 H (22.0-30.0) sec ABG pCO2 (35-45) mmHg Chloride (98-107) mmol/L BUN (9-20) mg/dL Creatinine (0.66-1.25) mg/dL Glucose (74-99) mg/dL POC Glucose (mg/dL) (70-110) mg/dL Calcium (8.4-10.2) mg/dL Phosphorus (2.5-4.5) mg/dL Magnesium (1.6-2.3) mg/dL Total Bilirubin (0.2-1.3) mg/dL AST (17-59) U/L ALT (4-49) U/L Total Protein (6.3-8.2) g/dL Albumin (3.5-5.0) g/dL Microbiology - Last 24 Hours (Table) 01/26/23 05:50 Blood Culture - Preliminary Blood 01/26/23 05:28 Blood Culture - Preliminary Blood 01/26/23 19:00 Gram Stain - Final Sputum Sputum Culture - Final Leila albicans Assessment and Plan Assessment: Impression:Exploratory laparotomy with small bowel resection, jejunostomy, postoperative day #4 Acute hypoxic respiratory failure secondary to abdominal sepsis and septic shock, with extensive bowel ischemia Abdominal sepsis and septic shock, presently maintained on Rodrigue-Synephrine and he is off norepinephrine which was contributing significantly to his tachycardia Acute lactic acidosis secondary to above /bowel ischemia and sepsis with septic shock , resolved Paroxysmal atrial fibrillation History of benign essential hypertension Ventral hernia Acute kidney injury secondary to sepsis and septic shock/suspect acute tubular necrosis improving steadily. Recommendation: Continue ventilatory support however may consider a weaning trial today off sedation Continue to monitor in ICU Continue hemodynamic support titrate Rodrigue-Synephrine accordingly, avoid norepinephrine if possible. Continue antibiotics/Zosyn Continue sedation Continue IV fluids at 125 mL per hour, patient will be given a fluid bolus today since his blood pressure remains marginal Continue to monitor urine output and continue to monitor renal profile Continue Solu-Cortef for now Transfuse if necessary or if hemoglobin goes below 7 Continue GI and DVT prophylaxis Continue TPN Overall prognosis remains poor and guarded. Patient remains quite critically ill. Critical care time is over 30 minutes We'll continue to monitor in the ICU Time with Patient: Greater than 30
[2023-01-30 12:05] LABS: Glucose,Whole Blood 134 mg/dL (70-110)
--- NOTE | 2023-01-30 15:07 | P.PN ---
Subjective Progress Note Date: 01/30/23 (delayed charting seen at 0923) Patient is a 67 -year-old male with history of high blood pressure, atrial fibrillation, diabetes mellitus type 2, obstructive uropathy, and long-standing ventral hernia who presented to the ER from his group home due to syncopal episode. In the ER he underwent extensive evaluation. On arrival was vital signs were remarkable for blood pressure 67/33 and a pulse of 60. Laboratory analysis was reviewed including a CBC, coagulation studies, CMP, liver function, lactic acid, and troponin which were remarkable for white blood cell count 15, hemoglobin 8.7, hematocrit 29.9, INR 1.6, carbon dioxide 14, anion gap 19, , lactic acid 9.6. Influenza A/B/RSV/COVID-[address] abdomen and pelvis completed which showed small bowel ischemia versus obstruction, ascites, cholelithiasis. In the ER he was given 2 L normal saline. He remained hypot ensive and was started on norepinephrine and Zosyn. Arrangements were made for admission to the ICU. He was seen by surgery, he was administered a dose of K Centra and underwent urgent exploratory laparotomy with small bowel resection and jejunostomy. The majority of the small bowel was resected with approximately 1 foot of jejunum that was viable, and duodenum was also viable. 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 Postoperatively he required 4 untis of pRBC. The night after surgery the patient's vasopressor requirements increased and he was subsequently started on phenylephrine and vasopressin. His cortisol was 16 which is not adequate for his state of shock and he was started on cortef. On 01/28 he went into A. fib with RVR necessitating a amiodarone drip. He vaso and phenylephrine were able to be weaned off by the morning of 01/29. He struggled with sinus tachy on 01/29 and vaso pressors were adjusted Patient seen and examined at bedside. He is sedated on vent. Nursing at bedside. HR better controlled off norepi, intermittently following commands low urine output. Vital signs reviewed General: Ill appearing, mild distress, appears at stated age Cardiovascular: S1S2 reg, no murmur, positive posterior tibial pulse bilateral, Lungs: Course bs bilateral, no rhonchi, no rales , no accessory muscle use Abdominal: soft, nontender to palpation, no guarding, no appreciable organomegaly, +ostomy, + midline dressing without soak through Ext: + gross muscle atrophy, no edema b/l lower extremities, no contractures Neuro: awake on vent, breathing over set rate, + cough, moving upper extremities independently Psych: Awake, can follow commands for a thumbs up Assessment/Plan: Ischemic colitis s/p small bowel resection with jejunostomy, 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 -Pulmonary critical care note reviewed: Was given a bolus for low urine output, transfuse if hemoglobin less than 7, continue Cortef - Zosyn 3.375 g IVPB q 8 hours D#5 - NGT to LIS - hold Lopressor - solucortef 50 IVP TID - off vaso and norepi, wean phenylephrine as able - repeat CMP in AM Hypophosphatemia, Hypocalcemia - TPN, replace with next dosing Atrial fibrillation with RVR - would hold off hepain gtt wiht platelet count of 94 and daily down trend -Cardiology reviewed: Continue with amiodarone, start anticoagulation when okay with surgery - s/p amio gtt -Metoprolol on hold secondary to hypotension -hold xarelto, resume when okay per surgery Anemia, due to acute blood loss- s/p 4 units pRBC Coagulopathy Thrombocytopenia - s/p Kcentra - Follow CBC - no need for iron studies due to transfusion Diabetes mellitus type 2 - not on chronic medications - SSI, follow BS Acute kidney Injury due to ATN, resolved Lactic acidosis , resolved Chronic: Hypertension Cirrhosis Constipation Gastric ulcer Encephalopathy Imaging: Chest x-ray as reviewed by me: Right basilar opacification Data Review: Sputum culture-Leila albicans Blood cultures negative for 72 hours Vitals reviewed T max in the last 24 hours is 100 Labs reviewed include CBC, coags, ABG, CMP, mag, and phosphorus which were remarkable for white blood cell count 20, hemoglobin 7.7, platelets 94, PTT 34.9, fibrinogen 549, chloride 112, calcium 6.9, phosphorus 1.7, C4 22, ALT 459, and albumin of 1.7. DVT prophylaxis: start lovenox 40 mg daily Discussed with: Patient, nursing Anticipated discharge date: Pending clinical course Anticipated discharge place: Pending clinical course This dictation was prepared using [employer] voice recognition software. Though every attempt is made to correct errors during dictation some may still exist. Objective - Vital Signs Vital signs: Vital Signs Temp 99.7 F H 01/30/23 12:00 Pulse 69 01/30/23 14:00 Resp 18 01/30/23 14:00 BP 99/65 01/30/23 14:00 Pulse Ox 99 01/30/23 14:00 FiO2 35 01/30/23 12:00 Intake & Output 01/29/23 01/30/23 01/30/23 18:59 06:59 18:59 Intake Total 2799.845 2528.727 2569.196 Output Total 1530 510 590 Balance 0566.388 9971.727 1979.196 Weight 71.7 kg 74.6 kg Intake: IV 1896 1896 1084 Dextrose 5% in Water 1, 75 000 ml @ 25 mls/hr IV . Q24H [facility] with Sodium Bicarb (1 Meq/ml) 150 ml Rx#:[id number] Mvi, Adult No.4 with Vit 360 360 60 K 10 ml Trace (Conc-1Ml/ Dose) 1 ml In Amino Acid 5%-D15w+Lytes*E* 1,000 ml @ 30 mls/hr IV .Q24H [facility] Rx#:[id number] Pressure Bag (0.9 Sodium 36 36 24 Chloride) Sodium Chloride 0.9% 1, 1425 1500 1000 000 ml @ 125 mls/hr IV . Q8H [facility] Rx#:[id number] Intake, IV Titration 903.845 733.690 5177.196 Amount Amiodarone 450 mg In 250 Dextrose 5% in Water 250 ml @ 0.5 MG/MIN 16.667 mls/hr IV .Q15H [facility] Rx#: [id number] Norepinephrine 32 mg In 17.258 Sodium Chloride 0.9% 218 ml @ 0.03 MCG/KG/MIN 0. 907 mls/hr IV .Q24H [facility] Rx#:[id number] Phenylephrine 40 mg In 209.048 351.577 218.262 Sodium Chloride 0.9% 250 ml @ 0.5 MCG/KG/MIN 12. 287 mls/hr IV .[id number] [facility] Rx#:[id number] Potassium Chloride 20 meq 400 In Water For Injection 1 100ml.bag @ 50 mls/hr IVPB Q2H [facility] Rx#: [id number] Sodium Chloride 0.9% 1, 1000 000 ml @ 999 mls/hr IV . Q1H1M [facility] Rx#:[id number] Sodium Phosphate 15 mmol 250 In Dextrose 5% in Water 250 ml @ 127.5 mls/hr IVPB ONCE [facility] Rx#: [id number] Sodium Phosphate 30 mmol 250 In Dextrose 5% in Water 250 ml @ 65 mls/hr IVPB ONCE [facility] Rx#:[id number] propofoL 1,000 mg In 27.539 31.150 16.934 Empty Bag 1 bag @ 15 MCG/ KG/MIN 5.348 mls/hr IV . [id number] [facility] Rx#:[id number] Output: Gastric Drainage 200 100 Urine 705 510 290 Stool 625 200 Other: Voiding Method Indwelling Catheter Indwelling Catheter Indwelling Catheter ABP, PAP, CO, CI - Last Documented Arterial Blood Pressure 107/55 - Labs CBC & Chem 7: 01/30/23 04:02 01/30/23 04:02 Labs: Abnormal Lab Results - Last 24 Hours (Table) 01/29/23 01/29/23 01/30/23 Range/Units 17:43 23:49 04:02 WBC (3.8-10.6) k/uL RBC (4.30-5.90) m/uL Hgb (13.0-17.5) gm/dL Hct (39.0-53.0) % MCV (80.0-100.0) fL MCH (25.0-35.0) pg RDW (11.5-15.5) % Plt Count (150-450) k/uL APTT (22.0-30.0) sec Fibrinogen (200-500) mg/dL ABG pCO2 (35-45) mmHg Chloride 112 H (98-107) mmol/L BUN 24 H (9-20) mg/dL Creatinine 0.51 L (0.66-1.25) mg/dL Glucose 112 H (74-99) mg/dL POC Glucose (mg/dL) 122 H 116 H (70-110) mg/dL Calcium 6.9 L (8.4-10.2) mg/dL Phosphorus 1.7 L (2.5-4.5) mg/dL Magnesium 2.4 H (1.6-2.3) mg/dL Total Bilirubin 2.2 H (0.2-1.3) mg/dL AST 422 H (17-59) U/L ALT 459 H (4-49) U/L Total Protein 3.8 L (6.3-8.2) g/dL Albumin 1.7 L (3.5-5.0) g/dL 01/30/23 01/30/23 01/30/23 Range/Units 04:02 06:15 09:20 WBC 20.4 H (3.8-10.6) k/uL RBC 3.13 L (4.30-5.90) m/uL Hgb 7.7 L (13.0-17.5) gm/dL Hct 24.8 L (39.0-53.0) % MCV 79.5 L (80.0-100.0) fL MCH 24.8 L (25.0-35.0) pg RDW 19.6 H (11.5-15.5) % Plt Count 94 L (150-450) k/uL APTT 34.9 H (22.0-30.0) sec Fibrinogen (200-500) mg/dL ABG pCO2 34 L (35-45) mmHg Chloride (98-107) mmol/L BUN (9-20) mg/dL Creatinine (0.66-1.25) mg/dL Glucose (74-99) mg/dL POC Glucose (mg/dL) (70-110) mg/dL Calcium (8.4-10.2) mg/dL Phosphorus (2.5-4.5) mg/dL Magnesium (1.6-2.3) mg/dL Total Bilirubin (0.2-1.3) mg/dL AST (17-59) U/L ALT (4-49) U/L Total Protein (6.3-8.2) g/dL Albumin (3.5-5.0) g/dL 01/30/23 01/30/23 Range/Units 09:20 12:02 WBC (3.8-10.6) k/uL RBC (4.30-5.90) m/uL Hgb (13.0-17.5) gm/dL Hct (39.0-53.0) % MCV (80.0-100.0) fL MCH (25.0-35.0) pg RDW (11.5-15.5) % Plt Count (150-450) k/uL APTT (22.0-30.0) sec Fibrinogen 549 H (200-500) mg/dL ABG pCO2 (35-45) mmHg Chloride (98-107) mmol/L BUN (9-20) mg/dL Creatinine (0.66-1.25) mg/dL Glucose (74-99) mg/dL POC Glucose (mg/dL) 134 H (70-110) mg/dL Calcium (8.4-10.2) mg/dL Phosphorus (2.5-4.5) mg/dL Magnesium (1.6-2.3) mg/dL Total Bilirubin (0.2-1.3) mg/dL AST (17-59) U/L ALT (4-49) U/L Total Protein (6.3-8.2) g/dL Albumin (3.5-5.0) g/dL Microbiology - Last 24 Hours (Table) 01/26/23 05:50 Blood Culture - Preliminary Blood 01/26/23 05:28 Blood Culture - Preliminary Blood
--- NOTE | 2023-01-30 15:18 | P.CONS ---
History of Present Illness - Reason for Consult Consult date: 01/30/23 decreasing platelets, possible need of heparin Requesting physician: Don Godoy - Chief Complaint Syncope - History of Present Illness Mr. Madera is a 67 yo male with multiple comorbidities who is here for syncope, found to be severely hypotensive with coffee ground emesis and ischemic bowel. On presentation Hgb was 8.7 and decreased to 6.1 on repeat, with plt of 200's, downtrending since admission to 185, then slowly decreased to 90's now. He was transfused 4 units pRBC with improvement of Hgb to around 9, however has been slowly downtrending since, and now at 7's. He also had acute liver toxicity with significant increase in his AST and ALP, normal AST and ALC on presentation and up to 400/500 the next day. Lactate 9.6 on presentation. OLE on presentat ion, creatinine 2 (prior creatinine in her systems from 2019 and was normal at 0.7), improved to normal now however with decreased urine output. INR on presentation was 1.6, PT of 15.9 and normal PTT at 28. Fibrinogen was checked and it was normal at 369, repeat increasing. PTT did increase up to 38.7 however PT overall is stable around 16. He did undergo bowel resection on presentation and found to have ischemic bowel. Course complicated by blood per ostomy, which seems to have improved recently. Continues to be intubated and sedated. We were consulted for continued decreasing platelets and possible need of IV heparin. 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 , HX OF BRAIN DAMAGE R/T DRUG ABUSE, abdominal hernia,rt hemiparesis History of Any Multi-Drug Resistant Organisms: ESBL, MRSA Year Discovered:: 04/02/17 MDRO Source:: sputum esbl, LT FOOT WOUND Past Surgical History: Adenoidectomy, Bowel Resection, Hernia Repair, Tonsillectomy Additional Past Surgical History / Comment(s): wound debridement to L FOOT, LYSIS OF ADHESIONS.PEG INSERTION & Removal, EGD, INCISIONAL HERNIA 11/2018 AT [facility]. SBO WITH PARTIAL BOWEL RESECTION (2017) Past Anesthesia/Blood Transfusion Reactions: No Reported Reaction Additional Past Anesthesia/Blood Transfusion Reaction / Comm: BROTHER- CINDY MADERA STATES NO PROBLEMS WITH ANESTHESIA AND NO FAMILY HX OF PROBLEMS WITH ANESTHESIA. Past Psychological History: Anxiety, Depression Additional Psychological History / Comment(s): Pt resides at [facility] since 2006. Smoking Status: Never smoker Past Alcohol Use History: None Reported Additional Past Alcohol Use History / Comment(s): Pt is a recovering alcoholic. Past Drug Use History: None Reported Additional Drug Use History / Comment(s): HX OF BRAIN DAMAGE R/T DRUG ABUSE - Past Family History Father Family Medical History: Dementia Additional Family Medical History / Comment(s): Father of alzheimer coleman ntia at the age of 87yrs. Mother Family Medical History: Cancer Additional Family Medical History / Comment(s): Mother had breast cancer and had a cancerous tumor removed from outside her bladder. She at the age of 87yrs from lung cancer. Medications and Allergies Home Medications Medication Instructions Recorded Confirmed Type Levothyroxine Sodium [Synthroid] 50 mcg PO DAILY 07/08/14 01/26/23 History Artificial Tears-Hypromellose 1 drop RIGHT EYE BID@0500,2200 02/15/17 01/26/23 H istory [Artificial Tear Drops] Melatonin 3 mg PO HS 10/06/17 01/26/23 History Rivaroxaban [Xarelto] 20 mg PO DAILY@1600 10/06/17 01/26/23 History diazePAM 2 mg PO QID@07,11,16,20 10/06/17 01/26/23 History polyethylene glycoL 3350 [Miralax] 17 gm PO DAILY 11/13/18 01/26/23 History Tamsulosin [Flomax] 0.4 mg PO DAILY #5 cap 11/17/18 01/26/23 Rx Escitalopram [Lexapro] 5 mg PO DAILY 04/25/19 01/26/23 History Memantine [Namenda] 10 mg PO BID 11/28/20 01/26/23 History Omeprazole 20 mg PO HS 11/28/20 01/26/23 History Acetaminophen [Tylenol 8 Hour] 650 mg PO Q6H PRN 01/26/23 01/26/23 History Docusate [Colace] 100 mg PO BID 01/26/23 01/26/23 History Magnesium Hydroxide [Milk of 2,400 mg PO DAILY PRN 01/26/23 01/26/23 History Magnesia] Metoprolol Tartrate [Lopressor] 12.5 mg PO BID 01/26/23 01/26/23 History Sennosides [Senokot] 17.2 mg PO DAILY 01/26/23 01/26/23 History Sodium Chloride [[place]] 2 spray EA NOSTRIL Q3H PRN 01/26/23 01/26/23 History Transderm Scop 1.5mg 1 patch TRANSDERM Q72H 01/26/23 01/26/23 History polyethylene glycoL 3350 [Miralax] 17 gm PO DAILY PRN 01/26/23 01/26/23 History Allergies Allergy/AdvReac Type Severity Reaction Status Date / Time No Known Allergies Allergy Verified 01/26/23 07:59 Physical Exam Vitals: Vital Signs Temp Pulse Resp BP Pulse Ox FiO2 01/30/23 12:00 99.7 F H 69 21 99/67 98 35 01/30/23 11:31 35 01/30/23 11:30 68 21 94/61 98 01/30/23 11:00 71 21 90/61 98 01/30/23 10:30 68 17 82/52 98 01/30/23 10:00 68 20 97/67 99 01/30/23 09:30 67 21 91/61 98 01/30/23 09:00 67 20 98 01/30/23 08:30 67 20 87/61 98 01/30/23 08:00 100.0 F H 67 17 91/61 99 35 01/30/23 07:45 67 18 94/62 99 01/30/23 07:42 35 01/30/23 07:30 67 22 95/64 99 01/30/23 07:15 67 18 92/62 99 01/30/23 07:00 67 20 94/63 99 01/30/23 06:45 67 20 94/63 99 01/30/23 06:30 68 20 94/62 99 01/30/23 06:15 67 19 95/66 99 01/30/23 06:12 35 01/30/23 06:00 67 18 94/62 99 01/30/23 05:45 66 18 94/64 99 01/30/23 05:30 67 17 94/63 99 01/30/23 05:15 67 17 91/62 98 01/30/23 05:00 70 18 89/62 98 01/30/23 04:45 67 19 87/62 98 01/30/23 04:30 66 19 84/56 97 01/30/23 04:15 66 17 90/60 98 01/30/23 04:00 99.5 F 67 18 88/56 98 35 01/30/23 03:45 67 18 89/58 98 01/30/23 03:30 68 21 90/56 97 01/30/23 03:15 67 19 94/60 96 01/30/23 03:00 67 19 95/61 97 01/30/23 02:45 68 19 88/58 98 01/30/23 02:30 68 18 97/61 97 01/30/23 02:15 70 22 94 L 01/30/23 02:00 74 21 96/65 100 01/30/23 01:45 68 21 100 01/30/23 01:37 35 01/30/23 01:30 68 18 94/64 97 01/30/23 01:15 68 16 97 01/30/23 01:00 70 22 98/66 97 01/30/23 00:45 70 19 97 01/30/23 00:30 69 19 93/63 97 01/30/23 00:15 69 18 97 01/30/23 00:00 100.0 F H 71 20 86/61 97 35 01/29/23 23:45 70 20 97 01/29/23 23:30 70 19 94/61 96 01/29/23 23:15 72 20 95 01/29/23 23:00 71 20 97/64 96 01/29/23 22:45 72 19 96 01/29/23 22:30 73 18 96/66 96 01/29/23 22:15 73 18 97 01/29/23 22:00 71 17 93/64 97 01/29/23 21:45 70 17 97 01/29/23 21:30 71 19 93/63 97 01/29/23 21:15 70 17 97 01/29/23 21:00 70 18 91/62 97 01/29/23 20:45 72 21 96 01/29/23 20:30 72 16 91/60 97 01/29/23 20:22 35 01/29/23 20:15 70 17 97 01/29/23 20:00 99.7 F H 70 19 95/61 97 35 01/29/23 19:45 71 17 97 01/29/23 19:30 70 16 98 01/29/23 19:15 70 18 93/59 97 01/29/23 19:00 70 17 91/59 97 01/29/23 18:45 70 16 97 01/29/23 18:30 72 17 96/62 97 01/29/23 18:15 71 17 97 01/29/23 18:00 72 16 93/58 96 01/29/23 17:45 72 17 96 01/29/23 17:30 73 21 94/62 96 01/29/23 17:15 72 19 98 01/29/23 17:00 72 19 93/60 98 01/29/23 16:45 69 21 98 01/29/23 16:30 71 17 94/63 98 01/29/23 16:15 70 17 98 01/29/23 16:00 99.5 F 71 19 93/60 98 35 01/29/23 15:45 71 20 98 01/29/23 15:37 35 01/29/23 15:30 71 17 79/54 98 01/29/23 15:28 98 35 01/29/23 15:15 70 17 98 01/29/23 15:00 70 19 97/59 98 01/29/23 14:45 70 18 98 01/29/23 14:30 71 18 102/65 98 01/29/23 14:15 69 16 98 01/29/23 14:00 71 18 100/64 98 01/29/23 13:45 71 19 98 01/29/23 13:30 71 17 97/61 98 01/29/23 13:15 70 20 98 01/29/23 13:00 70 17 101/62 98 Intake and Output 01/29/23 01/30/23 01/30/23 22:59 06:59 14:59 Intake Total 7876.925 5524.976 2182.255 Output Total 925 340 530 Balance 557.056 7690.976 1652.255 Intake: IV 1264 1264 828 Mvi, Adult No.4 with Vit 240 240 60 K 10 ml Trace (Conc-1Ml/ Dose) 1 ml In Amino Acid 5%-D15w+Lytes*E* 1,000 ml @ 30 mls/hr IV .Q24H [facility] Rx#:[id number] Pressure Bag (0.9 Sodium 24 24 18 Chloride) Sodium Chloride 0.9% 1, 1000 1000 750 000 ml @ 125 mls/hr IV . Q8H [facility] Rx#:[id number] Intake, IV Titration 256.843 415.660 2200.255 Amount Amiodarone 450 mg In 250 Dextrose 5% in Water 250 ml @ 0.5 MG/MIN 16.667 mls/hr IV .Q15H [facility] Rx#: [id number] Phenylephrine 40 mg In 129.304 293.826 87.321 Sodium Chloride 0.9% 250 ml @ 0.5 MCG/KG/MIN 12. 287 mls/hr IV .[id number] [facility] Rx#:[id number] Potassium Chloride 20 meq 100 In Water For Injection 1 100ml.bag @ 50 mls/hr IVPB Q2H [facility] Rx#: [id number] Sodium Chloride 0.9% 1, 1000 000 ml @ 999 mls/hr IV . Q1H1M [facility] Rx#:[id number] Sodium Phosphate 30 mmol 250 In Dextrose 5% in Water 250 ml @ 65 mls/hr IVPB ONCE [facility] Rx#:[id number] propofoL 1,000 mg In 27.539 31.150 16.934 Empty Bag 1 bag @ 15 MCG/ KG/MIN 5.348 mls/hr IV . [id number] [facility] Rx#:[id number] Output: Gastric Drainage 200 100 Urine 325 340 230 Stool 400 200 Other: Voiding Method Indwelling Catheter Indwelling Catheter Indwelling Catheter Weight 74.6 kg ABP, PAP, CO, CI - Last 8 Hours Arterial Blood Pressure 99/51 Arterial Blood Pressure 101/52 Arterial Blood Pressure 105/53 Arterial Blood Pressure 101/50 Arterial Blood Pressure 97/48 Arterial Blood Pressure 103/50 Arterial Blood Pressure 96/43 Arterial Blood Pressure 88/41 Arterial Blood Pressure 100/51 Arterial Blood Pressure 107/55 Arterial Blood Pressure 109/56 Arterial Blood Pressure 108/56 Arterial Blood Pressure 109/56 Arterial Blood Pressure 109/56 Arterial Blood Pressure 109/56 Arterial Blood Pressure 106/59 Arterial Blood Pressure 108/58 Arterial Blood Pressure 107/57 Arterial Blood Pressure 104/55 Arterial Blood Pressure 106/57 Arterial Blood Pressure 104/55 Pt intubated and sedated. In no acute distress. Results CBC & Chem 7: 01/30/23 04:02 01/30/23 04:02 Labs: Abnormal Lab Results - Last 24 Hours (Table) 01/29/23 01/29/23 01/30/23 Range/Units 17:43 23:49 04:02 WBC (3.8-10.6) k/uL RBC (4.30-5.90) m/uL Hgb (13.0-17.5) gm/dL Hct (39.0-53.0) % MCV (80.0-100.0) fL MCH (25.0-35.0) pg RDW (11.5-15.5) % Plt Count (150-450) k/uL APTT (22.0-30.0) sec ABG pCO2 (35-45) mmHg Chloride 112 H (98-107) mmol/L BUN 24 H (9-20) mg/dL Creatinine 0.51 L (0.66-1.25) mg/dL Glucose 112 H (74-99) mg/dL POC Glucose (mg/dL) 122 H 116 H (70-110) mg/dL Calcium 6.9 L (8.4-10.2) mg/dL Phosphorus 1.7 L (2.5-4.5) mg/dL Magnesium 2.4 H (1.6-2.3) mg/dL Total Bilirubin 2.2 H (0.2-1.3) mg/dL AST 422 H (17-59) U/L ALT 459 H (4-49) U/L Total Protein 3.8 L (6.3-8.2) g/dL Albumin 1.7 L (3.5-5.0) g/dL 01/30/23 01/30/23 01/30/23 Range/Units 04:02 06:15 09:20 WBC 20.4 H (3.8-10.6) k/uL RBC 3.13 L (4.30-5.90) m/uL Hgb 7.7 L (13.0-17.5) gm/dL Hct 24.8 L (39.0-53.0) % MCV 79.5 L (80.0-100.0) fL MCH 24.8 L (25.0-35.0) pg RDW 19.6 H (11.5-15.5) % Plt Count 94 L (150-450) k/uL APTT 34.9 H (22.0-30.0) sec ABG pCO2 34 L (35-45) mmHg Chloride (98-107) mmol/L BUN (9-20) mg/dL Creatinine (0.66-1.25) mg/dL Glucose (74-99) mg/dL POC Glucose (mg/dL) (70-110) mg/dL Calcium (8.4-10.2) mg/dL Phosphorus (2.5-4.5) mg/dL Magnesium (1.6-2.3) mg/dL Total Bilirubin (0.2-1.3) mg/dL AST (17-59) U/L ALT (4-49) U/L Total Protein (6.3-8.2) g/dL Albumin (3.5-5.0) g/dL 01/30/23 Range/Units 12:02 WBC (3.8-10.6) k/uL RBC (4.30-5.90) m/uL Hgb (13.0-17.5) gm/dL Hct (39.0-53.0) % MCV (80.0-100.0) fL MCH (25.0-35.0) pg RDW (11.5-15.5) % Plt Count (150-450) k/uL APTT (22.0-30.0) sec ABG pCO2 (35-45) mmHg Chloride (98-107) mmol/L BUN (9-20) mg/dL Creatinine (0.66-1.25) mg/dL Glucose (74-99) mg/dL POC Glucose (mg/dL) 134 H (70-110) mg/dL Calcium (8.4-10.2) mg/dL Phosphorus (2.5-4.5) mg/dL Magnesium (1.6-2.3) mg/dL Total Bilirubin (0.2-1.3) mg/dL AST (17-59) U/L ALT (4-49) U/L Total Protein (6.3-8.2) g/dL Albumin (3.5-5.0) g/dL Microbiology - Last 24 Hours (Table) 01/26/23 05:50 Blood Culture - Preliminary Blood 01/26/23 05:28 Blood Culture - Preliminary Blood 01/26/23 19:00 Gram Stain - Final Sputum Sputum Culture - Final Leila albicans Assessment and Plan Assessment: 1. Bowel ischemia 2. GI bleed 3. Acute bicytopenia, anemia and thrombocytopenia 4. Hypovolemic shock Plan: Mr. Madera is a 67 yo male with multiple comorbidities who is here for syncope. He was found to have ischemic bowel and GI bleed, currently in hypovolemic and hemorrhagic shock. Having downtrending hemoglobin and platelets as well as increasing AST and ALT. -Anemia and thrombocytopenia are likely due to consumption from GI bleed and surgery as well as bone marrow shock. Thrombocytopenia also related to acute liver dysfunction. -We'll continue to monitor his CBC very closely -If his hemoglobin continues to trend down would look for a source of bleed and hold off on anticoagulation -If no signs of bleeding and patient absolutely needs anticoagulation no objections to heparin -We'll also complete workup to rule out any other contributing etiology to his cytopenias -Supportive transfusion to maintain hemoglobin above 7
[2023-01-30] MEDS ORDERED: MVI, ADULT NO.4 WITH VIT K 10 ML, TRACE (CONC-1ML/DOSE) 1 ML, SODIUM ACETATE 30 MEQ, CA... IV SCH ×7 (16:00)
[2023-01-30] MEDS: VASOPRESSIN 60 UNIT in SODIUM CHLORIDE 0.9% 150 ML IV SCH (16:17)
--- NOTE | 2023-01-30 17:20 | P.PN ---
Subjective Progress Note Date: 01/30/23 Principal diagnosis: Sepsis/ischemic small intestine Patient is a 67-year-old male with a past medical history negative for atrial fibrillation diabetes mellitus hypertension PE seizure disorder and dementia patient was brought into the hospital for evaluation of a syncopal episode , patient did have a CT abdominal pelvis suggestive of small bowel ischemia status post laparotomy patient was noticed to have ischemic small bowel intestine intra-abdominal adhesion requiring small bowel resection and jejunostomy and admission to the ICU. On today's evaluation of that is 01/30/2023, the patient continues to be afebrile, the patient remains to be intubated on the vent, FiO2 stable at 35%, no significant purulent secretion through the ETas reported by RT, patient is requiring low-dose pressor support, no other changes reported by the nursing staff. Patient white count is about the same at 20.4, creatinine is 0.51, blood culture so far negative , sputum leila Objective - Vital Signs Vital signs: Vital Signs Temp 100.0 F H 01/30/23 08:00 Pulse 71 01/30/23 11:00 Resp 21 01/30/23 11:00 BP 90/61 01/30/23 11:00 Pulse Ox 98 01/30/23 11:00 FiO2 35 01/30/23 11:31 Intake & Output 01/29/23 01/30/23 01/30/23 18:59 06:59 18:59 Intake Total 2799.845 2528.727 2054.255 Output Total 1530 510 500 Balance 9771.615 7647.727 1554.255 Weight 71.7 kg 74.6 kg Intake: IV 1896 1896 700 Dextrose 5% in Water 1, 75 000 ml @ 25 mls/hr IV . Q24H [facility] with Sodium Bicarb (1 Meq/ml) 150 ml Rx#:[id number] [facility], Adult No.4 with Vit 360 360 60 K 10 ml Trace (Conc-1Ml/ Dose) 1 ml In Amino Acid 5%-D15w+Lytes*E* 1,000 ml @ 30 mls/hr IV .Q24H [facility] Rx#:[id number] Pressure Bag (0.9 Sodium 36 36 15 Chloride) Sodium Chloride 0.9% 1, 1425 1500 625 000 ml @ 125 mls/hr IV . Q8H [facility] Rx#:[id number] Intake, IV Titration 903.845 985.242 2152.255 Amount Amiodarone 450 mg In 250 Dextrose 5% in Water 250 ml @ 0.5 MG/MIN 16.667 mls/hr IV .Q15H [facility] Rx#: [id number] Norepinephrine 32 mg In 17.258 Sodium Chloride 0.9% 218 ml @ 0.03 MCG/KG/MIN 0. 907 mls/hr IV .Q24H [facility] Rx#:[id number] Phenylephrine 40 mg In 209.048 351.577 87.321 Sodium Chloride 0.9% 250 ml @ 0.5 MCG/KG/MIN 12. 287 mls/hr IV .[id number] [facility] Rx#:[id number] Potassium Chloride 20 meq 400 In Water For Injection 1 100ml.bag @ 50 mls/hr IVPB Q2H [facility] Rx#: [id number] Sodium Chloride 0.9% 1, 1000 000 ml @ 999 mls/hr IV . Q1H1M [facility] Rx#:[id number] Sodium Phosphate 15 mmol 250 In Dextrose 5% in Water 250 ml @ 127.5 mls/hr IVPB ONCE [facility] Rx#: [id number] Sodium Phosphate 30 mmol 250 In Dextrose 5% in Water 250 ml @ 65 mls/hr IVPB [facility]CE [facility] Rx#:[id number] propofoL 1,000 mg In 27.539 31.150 16.934 Empty Bag 1 bag @ 15 MCG/ KG/MIN 5.348 mls/hr IV . [id number] [facility] Rx#:[id number] Output: Gastric Drainage 200 100 Urine 705 510 200 Stool 625 200 Other: Voiding Method Indwelling Catheter Indwelling Catheter Indwelling Catheter ABP, PAP, CO, CI - Last Documented Arterial Blood Pressure 105/53 - Exam GENERAL DESCRIPTION: An elderly male intubated on the vent RESPIRATORY SYSTEM: Unlabored breathing , decreased breath sounds at bases HEART: S1 S2 regular rate and rhythm , ABDOMEN: Soft , midline incision is intact EXTREMITIES: No edema feet - Labs CBC & Chem 7: 01/30/23 04:02 01/30/23 04:02 Labs: Abnormal Lab Results - Last 24 Hours (Table) 01/29/23 01/29/23 01/29/23 Range/Units 12:06 17:43 23:49 WBC (3.8-10.6) k/uL RBC (4.30-5.90) m/uL Hgb (13.0-17.5) gm/dL Hct (39.0-53.0) % MCV (80.0-100.0) fL MCH (25.0-35.0) pg RDW (11.5-15.5) % Plt Count (150-450) k/uL APTT (22.0-30.0) sec ABG pCO2 (35-45) mmHg Chloride (98-107) mmol/L BUN (9-20) mg/dL Creatinine (0.66-1.25) mg/dL Glucose (74-99) mg/dL POC Glucose (mg/dL) 117 H 122 H 116 H (70-110) mg/dL Calcium (8.4-10.2) mg/dL Phosphorus (2.5-4.5) mg/dL Magnesium (1.6-2.3) mg/dL Total Bilirubin (0.2-1.3) mg/dL AST (17-59) U/L ALT (4-49) U/L Total Protein (6.3-8.2) g/dL Albumin (3.5-5.0) g/dL 01/30/23 01/30/23 01/30/23 Range/Units 04:02 04:02 06:15 WBC 20.4 H (3.8-10.6) k/uL RBC 3.13 L (4.30-5.90) m/uL Hgb 7.7 L (13.0-17.5) gm/dL Hct 24.8 L (39.0-53.0) % MCV 79.5 L (80.0-100.0) fL MCH 24.8 L (25.0-35.0) pg RDW 19.6 H (11.5-15.5) % Plt Count 94 L (150-450) k/uL APTT (22.0-30.0) sec ABG pCO2 34 L (35-45) mmHg Chloride 112 H (98-107) mmol/L BUN 24 H (9-20) mg/dL Creatinine 0.51 L (0.66-1.25) mg/dL Glucose 112 H (74-99) mg/dL POC Glucose (mg/dL) (70-110) mg/dL Calcium 6.9 L (8.4-10.2) mg/dL Phosphorus 1.7 L (2.5-4.5) mg/dL Magnesium 2.4 H (1.6-2.3) mg/dL Total Bilirubin 2.2 H (0.2-1.3) mg/dL AST 422 H (17-59) U/L ALT 459 H (4-49) U/L Total Protein 3.8 L (6.3-8.2) g/dL Albumin 1.7 L (3.5-5.0) g/dL 01/30/23 Range/Units 09:20 WBC (3.8-10.6) k/uL RBC (4.30-5.90) m/uL Hgb (13.0-17.5) gm/dL Hct (39.0-53.0) % MCV (80.0-100.0) fL MCH (25.0-35.0) pg RDW (11.5-15.5) % Plt Count (150-450) k/uL APTT 34.9 H (22.0-30.0) sec ABG pCO2 (35-45) mmHg Chloride (98-107) mmol/L BUN (9-20) mg/dL Creatinine (0.66-1.25) mg/dL Glucose (74-99) mg/dL POC Glucose (mg/dL) (70-110) mg/dL Calcium (8.4-10.2) mg/dL Phosphorus (2.5-4.5) mg/dL Magnesium (1.6-2.3) mg/dL Total Bilirubin (0.2-1.3) mg/dL AST (17-59) U/L ALT (4-49) U/L Total Protein (6.3-8.2) g/dL Albumin (3.5-5.0) g/dL Microbiology - Last 24 Hours (Table) 01/26/23 05:50 Blood Culture - Preliminary Blood 01/26/23 05:28 Blood Culture - Preliminary Blood 01/26/23 19:00 Gram Stain - Final Sputum Sputum Culture - Final Leila albicans Assessment and Plan (1) Ischemic bowel disease Current Visit: Yes Status: Acute Code(s): K55.9 - VASCULAR DISORDER OF INTESTINE, UNSPECIFIED SNOMED Code(s): 75920884 (2) Sepsis Current Visit: Yes Status: Acute Code(s): A41.9 - SEPSIS, UNSPECIFIED ORGANISM SNOMED Code(s): 24835417 Plan: 1patient present to hospital with sepsis/septic shock in this patient with hypotension fever elevated white count tachycardia source is abdominal pain in this patient noticed to have small bowel ischemia s/p laparotomy with small bowel resection and jejunostomy, we will need to cover for the enteric gram- negative the likely pathogen for this episode of sepsis/septic shock. 2patient afebrile , WBC is still elevated , Sputum with leila, ? oropharyngeal candidiasis 3- we will continue the patient on Zosyn 3.7 g every 8 hours add diflucan/Eraxis and see clinical response Dictation was produced using [employer] dictation software. please excuse any grammatical, word or spelling errors. Time with Patient: Less than 30
[2023-01-30 17:43] LABS: Glucose,Whole Blood 129 mg/dL (70-110)
[2023-01-30] MEDS ORDERED: ANIDULAFUNGIN 200 MG in SODIUM CHLORIDE 0.9% 200 ML IVPB ONE (18:00)
[2023-01-30 23:29] LABS: Glucose,Whole Blood 122 mg/dL (70-110)
[2023-01-31] MEDS: HYDROmorphone 0.5 MG/0.5 ML SYRINGE IVP PRN ×4 (00:44→20:53)
[2023-01-31] MEDS: SODIUM CHLORIDE 0.9% 1,000 ML IV SCH ×2 (01:23→20:15)
[2023-01-31 04:12] LABS: Anisocytosis Moderate; HGB 7.7 gm/dL (13.0-17.5); Hypochromasia Marked; MCH 24.8 pg (25.0-35.0); MCHC 30.9 g/dL (31.0-37.0); MCV 80.4 fL (80.0-100.0); Mean Platelet Volume 11.6; Microcytosis Slight; Poikilocytosis Slight; RBC 3.11 m/uL (4.30-5.90); RDW 20.3 % (11.5-15.5)
[2023-01-31 04:24] LABS: INR 1.1 (<1.2); Partial Thromboplastin Time 27.8 sec (22.0-30.0); Prothrombin Time 11.1 sec (9.0-12.0)
[2023-01-31 04:44] LABS: ALT 425 U/L (4-49); AST 381 U/L (17-59); African American GFR (CKD) >90 (>60 ml/min/1.73 sqM); Albumin 1.6 g/dL (3.5-5.0); Alkaline Phosphatase 70 U/L (38-126); Anion Gap 4 mmol/L; Blood Urea Nitrogen 24 mg/dL (9-20); Calcium 6.7 mg/dL (8.4-10.2); Carbon Dioxide 22 mmol/L (22-30); Chloride 113 mmol/L (98-107); Glucose 123 mg/dL (74-99); Magnesium 2.3 mg/dL (1.6-2.3); Non-African American GFR(CKD) >90 (>60 ml/min/1.73 sqM); Phosphorus 2.3 mg/dL (2.5-4.5); Potassium 3.7 mmol/L (3.5-5.1); Sodium 139 mmol/L (137-145); Total Bilirubin 3.3 mg/dL (0.2-1.3); Total Protein 3.8 g/dL (6.3-8.2)
[2023-01-31 04:46] LABS: Platelet Count 67 k/uL (150-450)
[2023-01-31 05:16] LABS: Anisocytosis (M) Present; Band Neutrophils % 1 %; Hypochromasia (M) Present; Monocytes # (M) 1.39 k/uL (0-1.0); Myelocytes # (M) 0.17 k/uL (0); Myelocytes % 1 %; Neutrophils % (M) 86 %; Nucleated Red Blood Cells 8 /100 WBC (0-0); Polychromasia Present; Total Cells Counted 100; WBC 17.4 k/uL (3.8-10.6)
[2023-01-31] MEDS: ARTIFICIAL TEARS-HYPROMELLOSE DROPS 15 ML BTL RIGHT EYE SCH ×2 (05:41→20:52)
[2023-01-31 05:42] LABS: Glucose,Whole Blood 131 mg/dL (70-110)
[2023-01-31] MEDS: POTASSIUM CHLORIDE 10 MEQ in WATER FOR INJECTION 1 100ML.BAG IVPB SCH ×2 (05:42→07:05)
[2023-01-31] MEDS: PIPERACILLIN-TAZOBACTAM 3.375 GM in SODIUM CHLORIDE 0.9% 100 ML IVPB SCH ×3 (05:42→22:57)
[2023-01-31] MEDS: INSULIN ASPART (NovoLOG) 100 UNIT/ML VIAL SQ SCH ×3 (05:54→17:59)
[2023-01-31] MEDS ORDERED: CALCIUM CHLORIDE 100 MG/ML 10 ML SYRINGE IVP STA (06:13)
[2023-01-31 06:54] LABS: ABG HCO3 23 mmol/L (21-25); ABG PCO2 35 mmHg (35-45); ABG PH 7.42 (7.35-7.45); ABG PO2 125 mmHg (83-108); ABG TCO2 24 mmol/L (19-24); Allen Test Performed? Yes
--- NOTE | 2023-01-31 07:58 | XR ---
EXAMINATION TYPE: XR chest 1V portable DATE OF EXAM: 01/31/2023 5:55 AM CLINICAL INDICATION:Male, 67 years old with history of mechanical ventilation; H COMPARISON: Chest radiographs from 01/30/2023 TECHNIQUE: XR chest 1V portable Frontal view of the chest. FINDINGS: Lungs/Pleura: No evidence of focal consolidation or pneumothorax. Blunting of the costophrenic angles is present. Basilar atelectasis present. Pulmonary vascularity: Unremarkable. Heart/mediastinum: Cardiomediastinal silhouette is unremarkable. Musculoskeletal: No acute osseous pathology. Other findings: None Lines/Tubes: Endotracheal tube with distal tip 5.9 cm above the dulce maria. Nasogastric tube with side-port projecting over the distal esophagus. IMPRESSION: 1. Endotracheal tube in appropriate position. 2. Nasogastric tube with distal tip and side-port in the distal esophagus, advancement of 11 cm saurabh mmended for optimal placement. 3. Trace bilateral pleural effusions.
[2023-01-31] MEDS ORDERED: CALCIUM GLUCONATE IN NACL 1 GM in SALINE 1 100ML.BAG IVPB ONE (08:35)
[2023-01-31] MEDS: CHLORHEXIDINE GLUCONATE 15 ML CUP MUCOUS MEM SCH ×2 (09:07→20:51)
[2023-01-31] MEDS: PANTOPRAZOLE 40 MG/10 ML VIAL IVP SCH ×2 (09:07→20:51)
[2023-01-31] MEDS: AMIODARONE 450 MG in DEXTROSE 5% IN WATER 250 ML IV SCH ×4 (09:08→15:35)
[2023-01-31] MEDS: HYDROCORTISONE SUCCINATE 100 MG/2 ML VIAL IV SCH ×2 (09:09→20:51)
[2023-01-31 09:27] LABS: Albumin 1.9 d/dL (3.8-4.9); Protein, Total 3.6 d/dL (6.2-8.2)
--- NOTE | 2023-01-31 09:44 | P.PN ---
Subjective Progress Note Date: 01/31/23 The patient is a 67-year-old male who is demented to the hospital with abdominal discomfort. 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 The patient developed postoperative atrial fibrillation and therefore cardiology was consulted. He was started on amiodaro ne drip and subsequently converted to sinus mechanism. Postoperative complications include acute hypoxic respiratory failure and septic shock. The patient remains ventilated in the ICU GENERAL: Ill-appearing, well-nourished and in no acute distress. Currently on ventilator. NECK: Supple without JVD or thyromegaly. LUNGS: Breath sounds diminished to auscultation bilaterally. Respiration equal a nd unlabored. No wheezes, rales or rhonchi. HEART: Regular rate and rhythm without murmurs, rubs or gallops. S1 and S2 heard. EXTREMITIES: Normal range of motion, mild edema. No clubbing or cyanosis. Peripheral pulses intact and strong. TELEMETRY: Sinus rhythm to sinus tachycardia overnight. No further episodes of atrial fibrillation/atrial flutter. LABS: WBC 17.4, hematocrit 25.0, hemoglobin 7.7, platelet 67, sodium 139, potassium 3.7, BUN 24, creatinine 0.51, AST 381, ALT 425, magnesium 2.3 IMPRESSION: Atrial fibrillation with RVR, currently in sinus rhythm Acute ischemic bowel, status post resection Thrombocytopenia Anemia, blood loss secondary to surgery PLAN: Start anticoagulation when cleared by surgery Continue oral amiodarone, consider discontinuing after extubation Continue supportive treatment Further recommendations be clinical course I am dictating on behalf of Dr Jerson Serrano's history/physical and assessment/plan. Objective - Vital Signs Vital signs: Vital Signs Temp 98.1 F 01/31/23 08:00 Pulse 71 01/31/23 08:45 Resp 20 01/31/23 08:45 BP 89/62 01/31/23 08:45 Pulse Ox 99 01/31/23 08:45 FiO2 30 01/31/23 09:36 Intake & Output 01/30/23 01/31/23 01/31/23 18:59 06:59 18:59 Intake Total 3466.593 2007.982 406.582 Output Total 1170 565 95 Balance 2296.593 1442.982 311.582 Weight 79.5 kg Intake: IV 1596 1836 356 Mvi, Adult No.4 with Vit 60 K 10 ml Trace (Conc-1Ml/ Dose) 1 ml In Amino Acid 5%-D15w+Lytes*E* 1,000 ml @ 30 mls/hr IV .Q24H [facility] Rx#:[id number] Piperacillin-Tazobactam 3 200 .375 gm In Sodium Chloride 0.9% 100 ml @ 25 mls/hr IVPB Q8H [facility] Rx#: [id number] Potassium Chloride 10 meq 100 100 In Water For Injection 1 100ml.bag @ 100 mls/hr IVPB Q1H [facility] Rx#: [id number] Pressure Bag (0.9 Sodium 36 36 6 Chloride) Sodium Chloride 0.9% 1, 1500 1500 250 000 ml @ 125 mls/hr IV . Q8H [facility] Rx#:[id number] Intake, IV Titration 1870.593 171.982 50.582 Amount Anidulafungin 200 mg In 200 Sodium Chloride 0.9% 200 ml @ 84 mls/hr IVPB ONCE [facility] Rx#:[id number] Phenylephrine 40 mg In 303.659 171.982 22.567 Sodium Chloride 0.9% 250 ml @ 0.5 MCG/KG/MIN 12. 287 mls/hr IV .[id number] [facility] Rx#:[id number] Piperacillin-Tazobactam 3 100 .375 gm In Sodium Chloride 0.9% 100 ml @ 25 mls/hr IVPB Q8H [facility] Rx#: [id number] Sodium Chloride 0.9% 1, 1000 000 ml @ 999 mls/hr IV . Q1H1M [facility] Rx#:[id number] Sodium Phosphate 30 mmol 250 In Dextrose 5% in Water 250 ml @ 65 mls/hr IVPB ONCE [facility] Rx#:[id number] propofoL 1,000 mg In 16.934 0 28.015 Empty Bag 1 bag @ 15 MCG/ KG/MIN 5.348 mls/hr IV . [id number] [facility] Rx#:[id number] Output: Gastric Drainage 100 Urine 470 565 95 Stool 600 Other: Voiding Method Indwelling Catheter Indwelling Catheter ABP, PAP, CO, CI - Last Documented Arterial Blood Pressure 109/59 - Labs CBC & Chem 7: 01/31/23 03:55 01/31/23 03:55 Labs: Abnormal Lab Results - Last 24 Hours (Table) 01/30/23 01/30/23 01/30/23 Range/Units 09:20 09:20 12:02 WBC (3.8-10.6) k/uL RBC (4.30-5.90) m/uL Hgb (13.0-17.5) gm/dL Hct (39.0-53.0) % MCH (25.0-35.0) pg MCHC (31.0-37.0) g/dL RDW (11.5-15.5) % Plt Count (150-450) k/uL Neutrophils # (Manual) (1.3-7.7) k/uL Lymphocytes # (Manual) (1.0-4.8) k/uL Monocytes # (Manual) (0-1.0) k/uL Myelocytes # (Manual) (0) k/uL Nucleated RBCs (0-0) /100 WBC APTT 34.9 H (22.0-30.0) sec Fibrinogen 549 H (200-500) mg/dL ABG pO2 (83-108) mmHg ABG O2 Saturation (94-97) % Chloride (98-107) mmol/L BUN (9-20) mg/dL Creatinine (0.66-1.25) mg/dL Glucose (74-99) mg/dL POC Glucose (mg/dL) 134 H (70-110) mg/dL Calcium (8.4-10.2) mg/dL Ionized Calcium Paula (4.5-5.3) mg/dL Phosphorus (2.5-4.5) mg/dL Total Bilirubin (0.2-1.3) mg/dL AST (17-59) U/L ALT (4-49) U/L Total Protein (6.3-8.2) g/dL Total Protein (PEP) (6.2-8.2) d/dL Albumin (3.5-5.0) g/dL Albumin (PEP) (3.8-4.9) d/dL 01/30/23 01/30/23 01/31/23 Range/Units 17:41 23:27 03:55 WBC 17.4 H (3.8-10.6) k/uL RBC 3.11 L (4.30-5.90) m/uL Hgb 7.7 L (13.0-17.5) gm/dL Hct 25.0 L (39.0-53.0) % MCH 24.8 L (25.0-35.0) pg MCHC 30.9 L (31.0-37.0) g/dL RDW 20.3 H (11.5-15.5) % Plt Count 67 L (150-450) k/uL Neutrophils # (Manual) 15.10 H (1.3-7.7) k/uL Lymphocytes # (Manual) 0.70 L (1.0-4.8) k/uL Monocytes # (Manual) 1.39 H (0-1.0) k/uL Myelocytes # (Manual) 0.17 H (0) k/uL Nucleated RBCs 8 H (0-0) /100 WBC APTT (22.0-30.0) sec Fibrinogen (200-500) mg/dL ABG pO2 (83-108) mmHg ABG O2 Saturation (94-97) % Chloride (98-107) mmol/L BUN (9-20) mg/dL Creatinine (0.66-1.25) mg/dL Glucose (74-99) mg/dL POC Glucose (mg/dL) 129 H 122 H (70-110) mg/dL Calcium (8.4-10.2) mg/dL Ionized Calcium Paula (4.5-5.3) mg/dL Phosphorus (2.5-4.5) mg/dL Total Bilirubin (0.2-1.3) mg/dL AST (17-59) U/L ALT (4-49) U/L Total Protein (6.3-8.2) g/dL Total Protein (PEP) (6.2-8.2) d/dL Albumin (3.5-5.0) g/dL Albumin (PEP) (3.8-4.9) d/dL 01/31/23 01/31/23 01/31/23 Range/Units 03:55 03:55 04:45 WBC (3.8-10.6) k/uL RBC (4.30-5.90) m/uL Hgb (13.0-17.5) gm/dL Hct (39.0-53.0) % MCH (25.0-35.0) pg MCHC (31.0-37.0) g/dL RDW (11.5-15.5) % Plt Count (150-450) k/uL Neutrophils # (Manual) (1.3-7.7) k/uL Lymphocytes # (Manual) (1.0-4.8) k/uL Monocytes # (Manual) (0-1.0) k/uL Myelocytes # (Manual) (0) k/uL Nucleated RBCs (0-0) /100 WBC APTT (22.0-30.0) sec Fibrinogen (200-500) mg/dL ABG pO2 (83-108) mmHg ABG O2 Saturation (94-97) % Chloride 113 H (98-107) mmol/L BUN 24 H (9-20) mg/dL Creatinine 0.51 L (0.66-1.25) mg/dL Glucose 123 H (74-99) mg/dL POC Glucose (mg/dL) (70-110) mg/dL Calcium 6.7 L (8.4-10.2) mg/dL Ionized Calcium Paula 4.3 L (4.5-5.3) mg/dL Phosphorus 2.3 L (2.5-4.5) mg/dL Total Bilirubin 3.3 H (0.2-1.3) mg/dL AST 381 H (17-59) U/L ALT 425 H (4-49) U/L Total Protein 3.8 L (6.3-8.2) g/dL Total Protein (PEP) 3.6 L (6.2-8.2) d/dL Albumin 1.6 L (3.5-5.0) g/dL Albumin (PEP) 1.9 L (3.8-4.9) d/dL 01/31/23 01/31/23 Range/Units 05:40 06:31 WBC (3.8-10.6) k/uL RBC (4.30-5.90) m/uL Hgb (13.0-17.5) gm/dL Hct (39.0-53.0) % MCH (25.0-35.0) pg MCHC (31.0-37.0) g/dL RDW (11.5-15.5) % Plt Count (150-450) k/uL Neutrophils # (Manual) (1.3-7.7) k/uL Lymphocytes # (Manual) (1.0-4.8) k/uL Monocytes # (Manual) (0-1.0) k/uL Myelocytes # (Manual) (0) k/uL Nucleated RBCs (0-0) /100 WBC APTT (22.0-30.0) sec Fibrinogen (200-500) mg/dL ABG pO2 125 H (83-108) mmHg ABG O2 Saturation 100.0 H (94-97) % Chloride (98-107) mmol/L BUN (9-20) mg/dL Creatinine (0.66-1.25) mg/dL Glucose (74-99) mg/dL POC Glucose (mg/dL) 131 H (70-110) mg/dL Calcium (8.4-10.2) mg/dL Ionized Calcium Paula (4.5-5.3) mg/dL Phosphorus (2.5-4.5) mg/dL Total Bilirubin (0.2-1.3) mg/dL AST (17-59) U/L ALT (4-49) U/L Total Protein (6.3-8.2) g/dL Total Protein (PEP) (6.2-8.2) d/dL Albumin (3.5-5.0) g/dL Albumin (PEP) (3.8-4.9) d/dL
[2023-01-31] MEDS: POTAS-SOD-PHOS 278-164-250 MG 1 EACH PACKET PO SCH ×3 (09:48→23:21)
--- NOTE | 2023-01-31 11:43 | P.PN ---
Subjective Progress Note Date: 01/31/23 Principal diagnosis: Thrombocytopenia In follow-up today patient is alert on ventilator. He nodded his head and affirmation when questioned about his name, patient did not appear to be in any unusual distress or pain. Objective - Vital Signs Vital signs: Vital Signs Temp 98.1 F 01/31/23 08:00 Pulse 75 01/31/23 10:00 Resp 29 H 01/31/23 10:00 BP 87/64 01/31/23 10:00 Pulse Ox 99 01/31/23 10:00 FiO2 30 01/31/23 11:22 Intake & Output 01/30/23 01/31/23 01/31/23 18:59 06:59 18:59 Intake Total 3466.593 2007.982 649.920 Output Total 1170 565 270 Balance 2296.593 1442.982 379.920 Weight 79.5 kg Intake: IV 1596 1836 356 Mvi, Adult No.4 with Vit 60 K 10 ml Trace (Conc-1Ml/ Dose) 1 ml In Amino Acid 5%-D15w+Lytes*E* 1,000 ml @ 30 mls/hr IV .Q24H [facility] Rx#:[id number] Piperacillin-Tazobactam 3 200 .375 gm In Sodium Chloride 0.9% 100 ml @ 25 mls/hr IVPB Q8H [facility] Rx#: [id number] Potassium Chloride 10 meq 100 100 In Water For Injection 1 100ml.bag @ 100 mls/hr IVPB Q1H [facility] Rx#: [id number] Pressure Bag (0.9 Sodium 36 36 6 Chloride) Sodium Chloride 0.9% 1, 1500 1500 250 000 ml @ 125 mls/hr IV . Q8H [facility] Rx#:[id number] Intake, IV Titration 1870.593 171.982 293.920 Amount Amiodarone 450 mg In 243.338 Dextrose 5% in Water 250 ml @ 0.5 MG/MIN 16.667 mls/hr IV .Q15H [facility] Rx#: [id number] Anidulafungin 200 mg In 200 Sodium Chloride 0.9% 200 ml @ 84 mls/hr IVPB ONCE [facility] Rx#:[id number] Phenylephrine 40 mg In 303.659 171.982 22.567 Sodium Chloride 0.9% 250 ml @ 0.5 MCG/KG/MIN 12. 287 mls/hr IV .[id number] [facility] Rx#:[id number] Piperacillin-Tazobactam 3 100 .375 gm In Sodium Chloride 0.9% 100 ml @ 25 mls/hr IVPB Q8H [facility] Rx#: [id number] Sodium Chloride 0.9% 1, 1000 000 ml @ 999 mls/hr IV . Q1H1M [facility] Rx#:[id number] Sodium Phosphate 30 mmol 250 In Dextrose 5% in Water 250 ml @ 65 mls/hr IVPB ONCE [facility] Rx#:[id number] propofoL 1,000 mg In 16.934 0 28.015 Empty Bag 1 bag @ 15 MCG/ KG/MIN 5.348 mls/hr IV . [id number] [facility] Rx#:[id number] Output: Gastric Drainage 100 Urine 470 565 270 Stool 600 Other: Voiding Method Indwelling Catheter Indwelling Catheter Indwelling Catheter ABP, PAP, CO, CI - Last Documented Arterial Blood Pressure 121/60 - Constitutional General appearance: Present: cooperative, no acute distress, thin - EENT Eyes: Present: anicteric sclerae ENT: Present: hearing grossly normal - Respiratory Respiratory: bilateral: CTA - Cardiovascular Details: No blood noted in ET tube Rhythm: regular - Peripheral edema leg Peripheral Edema: bilateral: None - Gastrointestinal Gastrointestinal Comment(s): Ostomy right upper quadrant, liquid stool present, no visible blood - Genitourinary Genitourinary Comment(s): No blood noted in Pedroza - Integumentary Integumentary: Present: pale - Psychiatric Psychiatric Comment(s): Patient is alert, unable to appropriately assess orientation but, he did respond in affirmation when his name was said - Labs CBC & Chem 7: 01/31/23 03:55 01/31/23 03:55 Labs: Abnormal Lab Results - Last 24 Hours (Table) 01/30/23 01/30/23 01/30/23 Range/Units 09:20 12:02 17:41 WBC (3.8-10.6) k/uL RBC (4.30-5.90) m/uL Hgb (13.0-17.5) gm/dL Hct (39.0-53.0) % MCH (25.0-35.0) pg MCHC (31.0-37.0) g/dL RDW (11.5-15.5) % Plt Count (150-450) k/uL Neutrophils # (Manual) (1.3-7.7) k/uL Lymphocytes # (Manual) (1.0-4.8) k/uL Monocytes # (Manual) (0-1.0) k/uL Myelocytes # (Manual) (0) k/uL Nucleated RBCs (0-0) /100 WBC Fibrinogen 549 H (200-500) mg/dL ABG pO2 (83-108) mmHg ABG O2 Saturation (94-97) % Chloride (98-107) mmol/L BUN (9-20) mg/dL Creatinine (0.66-1.25) mg/dL Glucose (74-99) mg/dL POC Glucose (mg/dL) 134 H 129 H (70-110) mg/dL Calcium (8.4-10.2) mg/dL Ionized Calcium Paula (4.5-5.3) mg/dL Phosphorus (2.5-4.5) mg/dL Total Bilirubin (0.2-1.3) mg/dL AST (17-59) U/L ALT (4-49) U/L Total Protein (6.3-8.2) g/dL Total Protein (PEP) (6.2-8.2) d/dL Albumin (3.5-5.0) g/dL Albumin (PEP) (3.8-4.9) d/dL Vitamin B12 (200.0-944.0) pg/mL 01/30/23 01/31/23 01/31/23 Range/Units 23:27 03:55 03:55 WBC 17.4 H (3.8-10.6) k/uL RBC 3.11 L (4.30-5.90) m/uL Hgb 7.7 L (13.0-17.5) gm/dL Hct 25.0 L (39.0-53.0) % MCH 24.8 L (25.0-35.0) pg MCHC 30.9 L (31.0-37.0) g/dL RDW 20.3 H (11.5-15.5) % Plt Count 67 L (150-450) k/uL Neutrophils # (Manual) 15.10 H (1.3-7.7) k/uL Lymphocytes # (Manual) 0.70 L (1.0-4.8) k/uL Monocytes # (Manual) 1.39 H (0-1.0) k/uL Myelocytes # (Manual) 0.17 H (0) k/uL Nucleated RBCs 8 H (0-0) /100 WBC Fibrinogen (200-500) mg/dL ABG pO2 (83-108) mmHg ABG O2 Saturation (94-97) % Chloride 113 H (98-107) mmol/L BUN 24 H (9-20) mg/dL Creatinine 0.51 L (0.66-1.25) mg/dL Glucose 123 H (74-99) mg/dL POC Glucose (mg/dL) 122 H (70-110) mg/dL Calcium 6.7 L (8.4-10.2) mg/dL Ionized Calcium Paula (4.5-5.3) mg/dL Phosphorus 2.3 L (2.5-4.5) mg/dL Total Bilirubin 3.3 H (0.2-1.3) mg/dL AST 381 H (17-59) U/L ALT 425 H (4-49) U/L Total Protein 3.8 L (6.3-8.2) g/dL Total Protein (PEP) (6.2-8.2) d/dL Albumin 1.6 L (3.5-5.0) g/dL Albumin (PEP) (3.8-4.9) d/dL Vitamin B12 (200.0-944.0) pg/mL 01/31/23 01/31/23 01/31/23 Range/Units 03:55 04:45 04:45 WBC (3.8-10.6) k/uL RBC (4.30-5.90) m/uL Hgb (13.0-17.5) gm/dL Hct (39.0-53.0) % MCH (25.0-35.0) pg MCHC (31.0-37.0) g/dL RDW (11.5-15.5) % Plt Count (150-450) k/uL Neutrophils # (Manual) (1.3-7.7) k/uL Lymphocytes # (Manual) (1.0-4.8) k/uL Monocytes # (Manual) (0-1.0) k/uL Myelocytes # (Manual) (0) k/uL Nucleated RBCs (0-0) /100 WBC Fibrinogen (200-500) mg/dL ABG pO2 (83-108) mmHg ABG O2 Saturation (94-97) % Chloride (98-107) mmol/L BUN (9-20) mg/dL Creatinine (0.66-1.25) mg/dL Glucose (74-99) mg/dL POC Glucose (mg/dL) (70-110) mg/dL Calcium (8.4-10.2) mg/dL Ionized Calcium Paula 4.3 L (4.5-5.3) mg/dL Phosphorus (2.5-4.5) mg/dL Total Bilirubin (0.2-1.3) mg/dL AST (17-59) U/L ALT (4-49) U/L Total Protein (6.3-8.2) g/dL Total Protein (PEP) 3.6 L (6.2-8.2) d/dL Albumin (3.5-5.0) g/dL Albumin (PEP) 1.9 L (3.8-4.9) d/dL Vitamin B12 >1800.0 H (200.0-944.0) pg/mL 01/31/23 01/31/23 Range/Units 05:40 06:31 WBC (3.8-10.6) k/uL RBC (4.30-5.90) m/uL Hgb (13.0-17.5) gm/dL Hct (39.0-53.0) % MCH (25.0-35.0) pg MCHC (31.0-37.0) g/dL RDW (11.5-15.5) % Plt Count (150-450) k/uL Neutrophils # (Manual) (1.3-7.7) k/uL Lymphocytes # (Manual) (1.0-4.8) k/uL Monocytes # (Manual) (0-1.0) k/uL Myelocytes # (Manual) (0) k/uL Nucleated RBCs (0-0) /100 WBC Fibrinogen (200-500) mg/dL ABG pO2 125 H (83-108) mmHg ABG O2 Saturation 100.0 H (94-97) % Chloride (98-107) mmol/L BUN (9-20) mg/dL Creatinine (0.66-1.25) mg/dL Glucose (74-99) mg/dL POC Glucose (mg/dL) 131 H (70-110) mg/dL Calcium (8.4-10.2) mg/dL Ionized Calcium Paula (4.5-5.3) mg/dL Phosphorus (2.5-4.5) mg/dL Total Bilirubin (0.2-1.3) mg/dL AST (17-59) U/L ALT (4-49) U/L Total Protein (6.3-8.2) g/dL Total Protein (PEP) (6.2-8.2) d/dL Albumin (3.5-5.0) g/dL Albumin (PEP) (3.8-4.9) d/dL Vitamin B12 (200.0-944.0) pg/mL Assessment and Plan (1) Thrombocytopenia Current Visit: Yes Status: Acute Priority: High Code(s): D69.6 - THROMBOCYTOPENIA, UNSPECIFIED SNOMED Code(s): 215330591 (2) Acute blood loss anemia Current Visit: Yes Status: Acute Priority: High Code(s): D62 - ACUTE POSTHEMORRHAGIC ANEMIA SNOMED Code(s): 341904223 (3) Ischemic bowel disease Current Visit: Yes Status: Acute Priority: High Code(s): K55.9 - VASCULAR DISORDER OF INTESTINE, UNSPECIFIED SNOMED Code(s): 30766287 (4) Sepsis Current Visit: Yes Status: Acute Priority: High Code(s): A41.9 - SEPSIS, UNSPECIFIED ORGANISM SNOMED Code(s): 67208420 (5) S/P small bowel resection Current Visit: Yes Status: Acute Priority: High Code(s): Z90.49 - ACQUIRED ABSENCE OF OTHER SPECIFIED PARTS OF DIGESTIVE TRACT SNOMED Code(s): 783376369651927 Plan: Thrombocytopenia -Progressive since admit, platelets 67,000 today -Secondary to sepsis, liver dysfunction, consumption from surgery and acute bleeding -DIC ruled out -Coags normal yesterday Anemia -Hemoglobin stable today Case discussed with Attending. Heparin drip recommended by Cardiology for atrial fibrillation. From a Hematology standpoint patient is okay to be anticoagulated as long as platelets remain above 50,000 and there is no gross bleeding. Hgb felt to be stable today based on lab review and timing of recent transfusions. Risk for bleeding or, if there are concerns for ongoing bleeding, defer to Surgeon for their recommendation for starting anticoagulation, if they feel anticoagulation is safe at this time based on recent surgery. Attending planning on reviewing if Surgeon has a platelet threshold. attests: I have seen and examined patient, performed H&P, developed imp ression and plan of care. Discussed with dictator. Agree with documentation, dictated as a scribe.
--- NOTE | 2023-01-31 11:54 | P.PN ---
Subjective Progress Note Date: 01/31/23 Principal diagnosis: Respiratory failure. Reevaluated today on 01/28/2023, patient remains in the ICU, intubated and mechanically ventilated. His assist-control rate is 16 tidal volume is 500 FiO2 40% PEEP of 5 ABG showed a pO2 of 129 pCO2 32 pH of 7.40 and I cut down his FiO2 to 35%. Patient is off propofol this morning and he is able to follow instructions, seems to comprehend, and seems to be relatively intact. However the patient is still requiring significant amount of drips/pressors he is on vasopressin at 0.04 units. Hour is also on norepinephrine at 19 mcg/m, Rodrigue- Synephrine has been discontinued. His IV fluid is down to 75 mL per hour and his bicarb is down to 25 ML per hour drip. Remains on amiodarone, patient is on 0.5 mg/m, and he is yet to be seen by cardiology today, seems to be in atrial flutter. WBC count today remains elevated at 24.4 hemoglobin is 9.4, lactic acid is 7.3, patient will receive another bolus of saline this morning. Elected lites are normal renal profile is improving bicarb is down to 17 and his creatinine is down to 1.37, liver enzymes remain elevated with AST of 591 and ALT of 449 chest x-ray showed minimal basilar atelectasis, no clear-cut evidence of infiltrates. Patient was reevaluated today on 01/29/2023, remains in the ICU, intubated and mechanically ventilated. Patient continues to have issues with atrial fibri llation and RVR, remains on amiodarone drip, he is receiving beta blockers by cardiology however that seems to be dropping his blood pressure, patient remains on relatively high dose of norepinephrine at 0.16 mcg/kg/m and today I suggested transitioning norepinephrine to Rodrigue-Synephrine since he was doing much better as far as tachycardia while he was on Rodrigue-Synephrine. We'll try to start Rodrigue-Syne phrine and gradually tapered down his norepinephrine hoping that his tachycardia would get better with Rodrigue-Synephrine on board. Remains on propofol at 7 mcg/kg/m remains on Lovenox remains on Zosyn remains on amiodarone at 0.5 mg/m. Patient did receive metoprolol 2.5 mg IV push slowly earlier. Ventilator smith he is on assist control rate of 16 tidal volume 500 FiO2 35% PEEP of 5 up gases showed a BNP O2 of 147 pCO2 42 pH of 7.41. Hence his FiO2 was brought down to 35% from 40% his sodium bicarb corrected nicely hence I'm stopping his sodium bicarb drip his urine output is about 100 mL/h, patient remains on IV fluid about 1 25 mL per hour. Not to mention the patient was started on TPN. Overall the patient remains critically ill, he is not ready for weaning mostly because of his cardiac issues and intermittent episodes of hypotension syndrome requiring significant amount of pressors re elevated today on 01/30, patient remains in the ICU, intubated and mechanically ventilated. He is on assist control rate of 16 tidal volume 500 FiO2 35% and PEEP of 5 ABG showed a pO2 of 102 pCO2 34 pH of 7.45 patient remains on amiodarone at 0.5 mg/m remains on TPN with lipids he is on Rodrigue-Syne phrine 1.2 mcg/kg/m propofol 10 mcg/kg/m IV fluid and 1 25 mL per hour remains on Solu-Cortef 50 mg IV push every 12 hours is also on Zosyn blood pressure is marginal in spite of Rodrigue-Synephrine hence I recommended that the patient gets a bolus of 0.9 normal saline today, and I actually plan to hold his propofol today and give the patient mental status assessment and possibly a weaning trial with pressure support and CPAP. Yesterday the patient was having significant tachycardia however the patient responded well to transitioning norepinephrine to Rodrigue-Synephrine and his tachycardia did resolve. He is now in sinus rhythm and his rate is in the 70s. I believe she count is 20.4 hemoglobin is 7.7 electrolytes are normal renal profile remains normal. A blood sugar is also normal, liver enzymes remains a bit elevated with ALT of 459 and AST of 422 bilirubin is 2.2. Progress note dated 01/31/2023. This is a 67-year-old male who was admitted to the hospital on January 26, with a history of small bowel obstruction, status post small bowel resection, and jejunostomy. The patient went to the operating room on January 26. He remains on mechanical ventilator. He is on volume assist control, rate 16, tidal volume 500, FiO2 35%, and PEEP of 5. Blood gases show a PaO2 of 125, pCO2 35, and pH is 7.42. The FiO2 was turned down from 35-30%. The patient's on saline at 25 mL an hour, amiodarone at 0.5 mg/m, Rodrigue-Synephrine, which is been recently discontinued, and TPN at 60 mL an hour. Propofol is also been weaned off. The patient is a DO NOT RESUSCITATE patient. Nonetheless, the patient will have a daily interruption of sedation, and a spontaneous breathing trial on a pressure support of 5 and CPAP of 5. The patient does continue on Zosyn. White count 17.4, hemoglobin 7.7, hematocrit 25, and platelet count 67,000. Sodium 139, potassium 3.7, chlorides 113, CO2 22, BUN 24, and creatinine 0.51. AST is 381. ALT is 425. Chest x-ray shows trace bilateral effusions. Objective - Vital Signs Vital signs: Vital Signs Temp 98.1 F 01/31/23 08:00 Pulse 75 01/31/23 11:30 Resp 28 H 01/31/23 11:30 BP 97/63 01/31/23 11:30 Pulse Ox 100 01/31/23 11:30 FiO2 30 01/31/23 11:22 Intake & Output 01/30/23 01/31/23 01/31/23 18:59 06:59 18:59 Intake Total 3466.593 2007.982 649.920 Output Total 1170 565 270 Balance 2296.593 1442.982 379.920 Weight 79.5 kg Intake: IV 1596 1836 356 Mvi, Adult No.4 with Vit 60 K 10 ml Trace (Conc-1Ml/ Dose) 1 ml In Amino Acid 5%-D15w+Lytes*E* 1,000 ml @ 30 mls/hr IV .Q24H [facility] Rx#:[id number] Piperacillin-Tazobactam 3 200 .375 gm In Sodium Chloride 0.9% 100 ml @ 25 mls/hr IVPB Q8H [facility] Rx#: [id number] Potassium Chloride 10 meq 100 100 In Water For Injection 1 100ml.bag @ 100 mls/hr IVPB Q1H [facility] Rx#: [id number] Pressure Bag (0.9 Sodium 36 36 6 Chloride) Sodium Chloride 0.9% 1, 1500 1500 250 000 ml @ 125 mls/hr IV . Q8H [facility] Rx#:[id number] Intake, IV Titration 1870.593 171.982 293.920 Amount Amiodarone 450 mg In 243.338 Dextrose 5% in Water 250 ml @ 0.5 MG/MIN 16.667 mls/hr IV .Q15H [facility] Rx#: [id number] Anidulafungin 200 mg In 200 Sodium Chloride 0.9% 200 ml @ 84 mls/hr IVPB ONCE ONE Rx#:[id number] Phenylephrine 40 mg In 303.659 171.982 22.567 Sodium Chloride 0.9% 250 ml @ 0.5 MCG/KG/MIN 12. 287 mls/hr IV .[id number] [facility] Rx#:[id number] Piperacillin-Tazobactam 3 100 .375 gm In Sodium Chloride 0.9% 100 ml @ 25 mls/hr IVPB Q8H [facility] Rx#: [id number] Sodium Chloride 0.9% 1, 1000 000 ml @ 999 mls/hr IV . Q1H1M [facility] Rx#:[id number] Sodium Phosphate 30 mmol 250 In Dextrose 5% in Water 250 ml @ 65 mls/hr IVPB ONCE ONE Rx#:[id number] propofoL 1,000 mg In 16.934 0 28.015 Empty Bag 1 bag @ 15 MCG/ KG/MIN 5.348 mls/hr IV . [id number] [facility] Rx#:[id number] Output: Gastric Drainage 100 Urine 470 565 270 Stool 600 Other: Voiding Method Indwelling Catheter Indwelling Catheter Indwelling Catheter ABP, PAP, CO, CI - Last Documented Arterial Blood Pressure 122/57 - Exam No acute distress, off sedation, minimally responsive, with an orally placed endotracheal tube. HEENT examination is grossly unremarkable. Neck supple. Full range of motion. No adenopathy thyromegaly or neck vein distention. Cardiovascular examination reveals regular rhythm rate. S1-S2 normal. No S3 or S4. No discernible murmur noted. Heart sounds are distant. Heart rate is 75 bpm. Lungs reveal scattered bilateral rhonchi. No wheezes or crackles. Breath sounds are equal bilaterally. Saturations are 100%. Abdomen soft bowel sounds are heard. No masses or tenderness. Extremities are intact. No cyanosis clubbing or edema. Skin is without rash or lesion. Neurologic examination is brief but nonfocal. - Labs CBC & Chem 7: 01/31/23 03:55 01/31/23 03:55 Labs: Abnormal Lab Results - Last 24 Hours (Table) 01/30/23 01/30/23 01/30/23 Range/Units 09:20 12:02 17:41 WBC (3.8-10.6) k/uL RBC (4.30-5.90) m/uL Hgb (13.0-17.5) gm/dL Hct (39.0-53.0) % MCH (25.0-35.0) pg MCHC (31.0-37.0) g/dL RDW (11.5-15.5) % Plt Count (150-450) k/uL Neutrophils # (Manual) (1.3-7.7) k/uL Lymphocytes # (Manual) (1.0-4.8) k/uL Monocytes # (Manual) (0-1.0) k/uL Myelocytes # (Manual) (0) k/uL Nucleated RBCs (0-0) /100 WBC Fibrinogen 549 H (200-500) mg/dL ABG pO2 (83-108) mmHg ABG O2 Saturation (94-97) % Chloride (98-107) mmol/L BUN (9-20) mg/dL Creatinine (0.66-1.25) mg/dL Glucose (74-99) mg/dL POC Glucose (mg/dL) 134 H 129 H (70-110) mg/dL Calcium (8.4-10.2) mg/dL Ionized Calcium Paula (4.5-5.3) mg/dL Phosphorus (2.5-4.5) mg/dL Total Bilirubin (0.2-1.3) mg/dL AST (17-59) U/L ALT (4-49) U/L Total Protein (6.3-8.2) g/dL Total Protein (PEP) (6.2-8.2) d/dL Albumin (3.5-5.0) g/dL Albumin (PEP) (3.8-4.9) d/dL Vitamin B12 (200.0-944.0) pg/mL 01/30/23 01/31/23 01/31/23 Range/Units 23:27 03:55 03:55 WBC 17.4 H (3.8-10.6) k/uL RBC 3.11 L (4.30-5.90) m/uL Hgb 7.7 L (13.0-17.5) gm/dL Hct 25.0 L (39.0-53.0) % MCH 24.8 L (25.0-35.0) pg MCHC 30.9 L (31.0-37.0) g/dL RDW 20.3 H (11.5-15.5) % Plt Count 67 L (150-450) k/uL Neutrophils # (Manual) 15.10 H (1.3-7.7) k/uL Lymphocytes # (Manual) 0.70 L (1.0-4.8) k/uL Monocytes # (Manual) 1.39 H (0-1.0) k/uL Myelocytes # (Manual) 0.17 H (0) k/uL Nucleated RBCs 8 H (0-0) /100 WBC Fibrinogen (200-500) mg/dL ABG pO2 (83-108) mmHg ABG O2 Saturation (94-97) % Chloride 113 H (98-107) mmol/L BUN 24 H (9-20) mg/dL Creatinine 0.51 L (0.66-1.25) mg/dL Glucose 123 H (74-99) mg/dL POC Glucose (mg/dL) 122 H (70-110) mg/dL Calcium 6.7 L (8.4-10.2) mg/dL Ionized Calcium Paula (4.5-5.3) mg/dL Phosphorus 2.3 L (2.5-4.5) mg/dL Total Bilirubin 3.3 H (0.2-1.3) mg/dL AST 381 H (17-59) U/L ALT 425 H (4-49) U/L Total Protein 3.8 L (6.3-8.2) g/dL Total Protein (PEP) (6.2-8.2) d/dL Albumin 1.6 L (3.5-5.0) g/dL Albumin (PEP) (3.8-4.9) d/dL Vitamin B12 (200.0-944.0) pg/mL 09/01/31/23 01/31/23 Range/Units 03:55 04:45 04:45 WBC (3.8-10.6) k/uL RBC (4.30-5.90) m/uL Hgb (13.0-17.5) gm/dL Hct (39.0-53.0) % MCH (25.0-35.0) pg MCHC (31.0-37.0) g/dL RDW (11.5-15.5) % Plt Count (150-450) k/uL Neutrophils # (Manual) (1.3-7.7) k/uL Lymphocytes # (Manual) (1.0-4.8) k/uL Monocytes # (Manual) (0-1.0) k/uL Myelocytes # (Manual) (0) k/uL Nucleated RBCs (0-0) /100 WBC Fibrinogen (200-500) mg/dL ABG pO2 (83-108) mmHg ABG O2 Saturation (94-97) % Chloride (98-107) mmol/L BUN (9-20) mg/dL Creatinine (0.66-1.25) mg/dL Glucose (74-99) mg/dL POC Glucose (mg/dL) (70-110) mg/dL Calcium (8.4-10.2) mg/dL Ionized Calcium Paula 4.3 L (4.5-5.3) mg/dL Phosphorus (2.5-4.5) mg/dL Total Bilirubin (0.2-1.3) mg/dL AST (17-59) U/L ALT (4-49) U/L Total Protein (6.3-8.2) g/dL Total Protein (PEP) 3.6 L (6.2-8.2) d/dL Albumin (3.5-5.0) g/dL Albumin (PEP) 1.9 L (3.8-4.9) d/dL Vitamin B12 >1800.0 H (200.0-944.0) pg/mL 01/31/23 01/31/23 Range/Units 05:40 06:31 WBC (3.8-10.6) k/uL RBC (4.30-5.90) m/uL Hgb (13.0-17.5) gm/dL Hct (39.0-53.0) % MCH (25.0-35.0) pg MCHC (31.0-37.0) g/dL RDW (11.5-15.5) % Plt Count (150-450) k/uL Neutrophils # (Manual) (1.3-7.7) k/uL Lymphocytes # (Manual) (1.0-4.8) k/uL Monocytes # (Manual) (0-1.0) k/uL Myelocytes # (Manual) (0) k/uL Nucleated RBCs (0-0) /100 WBC Fibrinogen (200-500) mg/dL ABG pO2 125 H (83-108) mmHg ABG O2 Saturation 100.0 H (94-97) % Chloride (98-107) mmol/L BUN (9-20) mg/dL Creatinine (0.66-1.25) mg/dL Glucose (74-99) mg/dL POC Glucose (mg/dL) 131 H (70-110) mg/dL Calcium (8.4-10.2) mg/dL Ionized Calcium Paula (4.5-5.3) mg/dL Phosphorus (2.5-4.5) mg/dL Total Bilirubin (0.2-1.3) mg/dL AST (17-59) U/L ALT (4-49) U/L Total Protein (6.3-8.2) g/dL Total Protein (PEP) (6.2-8.2) d/dL Albumin (3.5-5.0) g/dL Albumin (PEP) (3.8-4.9) d/dL Vitamin B12 (200.0-944.0) pg/mL Assessment and Plan Assessment: Status post exploratory laparotomy with resection, and jejunostomy, postoperative day #5. Routine postoperative ventilator management. Status post intubation and mechanical ventilation on 01/26/2023. Abdominal sepsis with septic shock, improved. Acute hypoxemic respiratory failure secondary to abdominal sepsis, and extensive bowel ischemia. Paroxysmal atrial fibrillation. Acute lactic acidosis secondary to sepsis. Benign essential hypertension. Ventral hernia. Acute kidney injury secondary to sepsis, hypertension, and acute tubular necrosis. Plan: Plan dated 01/31/2023. The patient's FiO2 was dropped from 35%, down to 30%. The patient remains on saline, amiodarone, and TPN at 60 mL an hour. Propofol has been discontinued. The patient will get a spontaneous breathing trial on pressure support of 5, and CPAP of 5. The patient is currently on Zosyn. Labs, x-rays, medications are reviewed. The patient is a DO NOT RESUSCITATE patient. We will clarify with the family, that should the patient be extubated, he will not be reintubated. We will continue to follow the patient and make recommendations along the way. Prognosis is certainly poor. Time with Patient: Greater than 30
--- NOTE | 2023-01-31 11:57 | P.PN ---
Subjective Progress Note Date: 01/31/23 Principal diagnosis: Sepsis/ischemic small intestine Patient is a 67-year-old male with a past medical history negative for atrial fibrillation diabetes mellitus hypertension PE seizure disorder and dementia patient was brought into the hospital for evaluation of a syncopal episode , patient did have a CT abdominal pelvis suggestive of small bowel ischemia status post laparotomy patient was noticed to have ischemic small bowel intestine intra-abdominal adhesion requiring small bowel resection and jejunostomy and admission to the ICU. On today's evaluation of that is 01/31/2023, the patient remains to be afebrile, the patient is hematemesis stable not requiring any pressor support per the nursing staff, the patient FiO2 is down to 30% currently undergoing wean ing trial for possible Patient Patient white count is down to 17.4, creatinine is 0.51, blood culture so far negative , sputum vinay Objective - Vital Signs Vital signs: Vital Signs Temp 98.1 F 01/31/23 08:00 Pulse 75 01/31/23 11:30 Resp 28 H 01/31/23 11:30 BP 97/63 01/31/23 11:30 Pulse Ox 100 01/31/23 11:30 FiO2 30 01/31/23 11:22 Intake & Output 01/30/23 01/31/23 01/31/23 18:59 06:59 18:59 Intake Total 3466.593 2007.982 649.920 Output Total 1170 565 270 Balance 2296.593 1442.982 379.920 Weight 79.5 kg Intake: IV 1596 1836 356 Mvi, Adult No.4 with Vit 60 K 10 ml Trace (Conc-1Ml/ Dose) 1 ml In Amino Acid 5%-D15w+Lytes*E* 1,000 ml @ 30 mls/hr IV .Q24H [facility] Rx#:[id number] Piperacillin-Tazobactam 3 200 .375 gm In Sodium Chloride 0.9% 100 ml @ 25 mls/hr IVPB Q8H [facility] Rx#: [id number] Potassium Chloride 10 meq 100 100 In Water For Injection 1 100ml.bag @ 100 mls/hr IVPB Q1H [facility] Rx#: [id number] Pressure Bag (0.9 Sodium 36 36 6 Chloride) Sodium Chloride 0.9% 1, 1500 1500 250 000 ml @ 125 mls/hr IV . Q8H [facility] Rx#:[id number] Intake, IV Titration 1870.593 171.982 293.920 Amount Amiodarone 450 mg In 243.338 Dextrose 5% in Water 250 ml @ 0.5 MG/MIN 16.667 mls/hr IV .Q15H [facility] Rx#: [id number] Anidulafungin 200 mg In 200 Sodium Chloride 0.9% 200 ml @ 84 mls/hr IVPB ONCE ONE Rx#:[id number] Phenylephrine 40 mg In 303.659 171.982 22.567 Sodium Chloride 0.9% 250 ml @ 0.5 MCG/KG/MIN 12. 287 mls/hr IV .[id number] [facility] Rx#:[id number] Piperacillin-Tazobactam 3 100 .375 gm In Sodium Chloride 0.9% 100 ml @ 25 mls/hr IVPB Q8H [facility] Rx#: [id number] Sodium Chloride 0.9% 1, 1000 000 ml @ 999 mls/hr IV . Q1H1M [facility] Rx#:[id number] Sodium Phosphate 30 mmol 250 In Dextrose 5% in Water 250 ml @ 65 mls/hr IVPB ONCE ONE Rx#:[id number] propofoL 1,000 mg In 16.934 0 28.015 Empty Bag 1 bag @ 15 MCG/ KG/MIN 5.348 mls/hr IV . [id number] [facility] Rx#:[id number] Output: Gastric Drainage 100 Urine 470 565 270 Stool 600 Other: Voiding Method Indwelling Catheter Indwelling Catheter Indwelling Catheter ABP, PAP, CO, CI - Last Documented Arterial Blood Pressure 122/57 - Exam GENERAL DESCRIPTION: An elderly male intubated on the vent RESPIRATORY SYSTEM: Unlabored breathing , decreased breath sounds at bases HEART: S1 S2 regular rate and rhythm , ABDOMEN: Soft , midline incision is intact EXTREMITIES: No edema feet - Labs CBC & Chem 7: 01/31/23 03:55 01/31/23 03:55 Labs: Abnormal Lab Results - Last 24 Hours (Table) 01/30/23 01/30/23 01/30/23 Range/Units 09:20 12:02 17:41 WBC (3.8-10.6) k/uL RBC (4.30-5.90) m/uL Hgb (13.0-17.5) gm/dL Hct (39.0-53.0) % MCH (25.0-35.0) pg MCHC (31.0-37.0) g/dL RDW (11.5-15.5) % Plt Count (150-450) k/uL Neutrophils # (Manual) (1.3-7.7) k/uL Lymphocytes # (Manual) (1.0-4.8) k/uL Monocytes # (Manual) (0-1.0) k/uL Myelocytes # (Manual) (0) k/uL Nucleated RBCs (0-0) /100 WBC Fibrinogen 549 H (200-500) mg/dL ABG pO2 (83-108) mmHg ABG O2 Saturation (94-97) % Chloride (98-107) mmol/L BUN (9-20) mg/dL Creatinine (0.66-1.25) mg/dL Glucose (74-99) mg/dL POC Glucose (mg/dL) 134 H 129 H (70-110) mg/dL Calcium (8.4-10.2) mg/dL Ionized Calcium Paula (4.5-5.3) mg/dL Phosphorus (2.5-4.5) mg/dL Total Bilirubin (0.2-1.3) mg/dL AST (17-59) U/L ALT (4-49) U/L Total Protein (6.3-8.2) g/dL Total Protein (PEP) (6.2-8.2) d/dL Albumin (3.5-5.0) g/dL Albumin (PEP) (3.8-4.9) d/dL Vitamin B12 (200.0-944.0) pg/mL 01/30/23 01/31/23 01/31/23 Range/Units 23:27 03:55 03:55 WBC 17.4 H (3.8-10.6) k/uL RBC 3.11 L (4.30-5.90) m/uL Hgb 7.7 L (13.0-17.5) gm/dL Hct 25.0 L (39.0-53.0) % MCH 24.8 L (25.0-35.0) pg MCHC 30.9 L (31.0-37.0) g/dL RDW 20.3 H (11.5-15.5) % Plt Count 67 L (150-450) k/uL Neutrophils # (Manual) 15.10 H (1.3-7.7) k/uL Lymphocytes # (Manual) 0.70 L (1.0-4.8) k/uL Monocytes # (Manual) 1.39 H (0-1.0) k/uL Myelocytes # (Manual) 0.17 H (0) k/uL Nucleated RBCs 8 H (0-0) /100 WBC Fibrinogen (200-500) mg/dL ABG pO2 (83-108) mmHg ABG O2 Saturation (94-97) % Chloride 113 H (98-107) mmol/L BUN 24 H (9-20) mg/dL Creatinine 0.51 L (0.66-1.25) mg/dL Glucose 123 H (74-99) mg/dL POC Glucose (mg/dL) 122 H (70-110) mg/dL Calcium 6.7 L (8.4-10.2) mg/dL Ionized Calcium Paula (4.5-5.3) mg/dL Phosphorus 2.3 L (2.5-4.5) mg/dL Total Bilirubin 3.3 H (0.2-1.3) mg/dL AST 381 H (17-59) U/L ALT 425 H (4-49) U/L Total Protein 3.8 L (6.3-8.2) g/dL Total Protein (PEP) (6.2-8.2) d/dL Albumin 1.6 L (3.5-5.0) g/dL Albumin (PEP) (3.8-4.9) d/dL Vitamin B12 (200.0-944.0) pg/mL 01/31/23 01/31/23 01/31/23 Range/Units 03:55 04:45 04:45 WBC (3.8-10.6) k/uL RBC (4.30-5.90) m/uL Hgb (13.0-17.5) gm/dL Hct (39.0-53.0) % MCH (25.0-35.0) pg MCHC (31.0-37.0) g/dL RDW (11.5-15.5) % Plt Count (150-450) k/uL Neutrophils # (Manual) (1.3-7.7) k/uL Lymphocytes # (Manual) (1.0-4.8) k/uL Monocytes # (Manual) (0-1.0) k/uL Myelocytes # (Manual) (0) k/uL Nucleated RBCs (0-0) /100 WBC Fibrinogen (200-500) mg/dL ABG pO2 (83-108) mmHg ABG O2 Saturation (94-97) % Chloride (98-107) mmol/L BUN (9-20) mg/dL Creatinine (0.66-1.25) mg/dL Glucose (74-99) mg/dL POC Glucose (mg/dL) (70-110) mg/dL Calcium (8.4-10.2) mg/dL Ionized Calcium Paula 4.3 L (4.5-5.3) mg/dL Phosphorus (2.5-4.5) mg/dL Total Bilirubin (0.2-1.3) mg/dL AST (17-59) U/L ALT (4-49) U/L Total Protein (6.3-8.2) g/dL Total Protein (PEP) 3.6 L (6.2-8.2) d/dL Albumin (3.5-5.0) g/dL Albumin (PEP) 1.9 L (3.8-4.9) d/dL Vitamin B12 >1800.0 H (200.0-944.0) pg/mL 01/31/23 01/31/23 Range/Units 05:40 06:31 WBC (3.8-10.6) k/uL RBC (4.30-5.90) m/uL Hgb (13.0-17.5) gm/dL Hct (39.0-53.0) % MCH (25.0-35.0) pg MCHC (31.0-37.0) g/dL RDW (11.5-15.5) % Plt Count (150-450) k/uL Neutrophils # (Manual) (1.3-7.7) k/uL Lymphocytes # (Manual) (1.0-4.8) k/uL Monocytes # (Manual) (0-1.0) k/uL Myelocytes # (Manual) (0) k/uL Nucleated RBCs (0-0) /100 WBC Fibrinogen (200-500) mg/dL ABG pO2 125 H (83-108) mmHg ABG O2 Saturation 100.0 H (94-97) % Chloride (98-107) mmol/L BUN (9-20) mg/dL Creatinine (0.66-1.25) mg/dL Glucose (74-99) mg/dL POC Glucose (mg/dL) 131 H (70-110) mg/dL Calcium (8.4-10.2) mg/dL Ionized Calcium Paula (4.5-5.3) mg/dL Phosphorus (2.5-4.5) mg/dL Total Bilirubin (0.2-1.3) mg/dL AST (17-59) U/L ALT (4-49) U/L Total Protein (6.3-8.2) g/dL Total Protein (PEP) (6.2-8.2) d/dL Albumin (3.5-5.0) g/dL Albumin (PEP) (3.8-4.9) d/dL Vitamin B12 (200.0-944.0) pg/mL Assessment and Plan (1) Ischemic bowel disease Current Visit: Yes Status: Acute Priority: High Code(s): K55.9 - VASCULAR DISORDER OF INTESTINE, UNSPECIFIED SNOMED Code(s): 34578560 (2) Sepsis Current Visit: Yes Status: Acute Priority: High Code(s): A41.9 - SEPSIS, UNSPECIFIED ORGANISM SNOMED Code(s): 03308844 Plan: 1patient present to hospital with sepsis/septic shock in this patient with hypotension fever elevated white count tachycardia source is abdominal pain in this patient noticed to have small bowel ischemia s/p laparotomy with small bowel resection and jejunostomy, we will need to cover for the enteric gram- negative the likely pathogen for this episode of sepsis/septic shock. 2patient afebrile , leukocytosis likely related to oropharyngeal candidiasis, with white count trending down with the addition of Eraxis will will be continued 3-patient to continue with Zosyn 3.7 g every 8 hours and monitor clinical course closely Dictation was produced using [employer] dictation software. please excuse any grammatical, word or spelling errors. Time with Patient: Less than 30
[2023-01-31 12:00] LABS: Glucose,Whole Blood 121 mg/dL (70-110)
--- NOTE | 2023-01-31 12:44 | P.PN ---
Subjective Progress Note Date: 01/31/23 CHIEF COMPLAINT: Abdominal pain HISTORY OF PRESENT ILLNESS: Patient is in the ICU on mechanical ventilation. He is postop day #5 status post exploratory laparotomy with small bowel resection and jejunostomy for ischemic small intestine and intra-abdominal adhesions. Patient undergoing spontaneous breathing trials. He is off of sedation. He is off of pressors. T-max 100 WBC down from 20-17.4 Hgb 7.7 platelets 67 creatinine 0.5 liver enzymes elevated. Patient currently on TPN. Patient with A. fib. Hold by cardiology PHYSICAL EXAM: VITAL SIGNS: Reviewed. GENERAL: Well-developed in no acute distress. HEENT: No sclera icterus. Extraocular movements grossly intact. Moist buccal mucosa. Head is atraumatic, normocephalic. ABDOMEN: Soft. Nondistended. Midline incisional dressing clean dry and intact. Jejunostomy on the left with yellowish output. Stoma red NEUROLOGIC: intubated ASSESSMENT: 1. Ischemic small intestine and intra-abdominal adhesions status post exploratory laparotomy with small bowel resection and jejunostomy PLAN: -Continue ICU management -Continue supportive care -Patient will require lifelong TPN -Continue TPN for nutrition support -Patient can start IV heparin from surgical standpoint -CODE STATUS was changed to DO NOT RESUSCITATE Physician Regulatory Analyst note has been reviewed by physician. Signing provider agrees with the documented findings, assessment, and plan of care. I have personally seen and examined the patient, reviewed the FOREIGN EXCHANGE CLERK /PAs history, exam and MDM and agree with the assessment and plan as written. Based on total visit time, I have performed more than 50% of the visit. As above: Patient doing well today. He will be extubated shortly. Hemodynamically is stable. May remove nasogastric tube if her respiratory status is stable after extubation. May begin clear liquids when stable. Will follow. Objective - Vital Signs Vital signs: Vital Signs Temp 97.8 F 01/31/23 12:00 Pulse 75 01/31/23 12:30 Resp 28 H 01/31/23 12:30 BP 103/68 01/31/23 12:30 Pulse Ox 97 01/31/23 12:30 FiO2 30 01/31/23 12:00 Intake & Output 01/30/23 01/31/23 01/31/23 18:59 06:59 18:59 Intake Total 3466.593 2007.982 1249.920 Output Total 1170 565 320 Balance 2296.593 1442.982 929.920 Weight 79.5 kg Intake: IV 1596 1836 956 Mvi, Adult No.4 with Vit 60 K 10 ml Trace (Conc-1Ml/ Dose) 1 ml In Amino Acid 5%-D15w+Lytes*E* 1,000 ml @ 30 mls/hr IV .Q24H [facility] Rx#:[id number] Piperacillin-Tazobactam 3 200 .375 gm In Sodium Chloride 0.9% 100 ml @ 25 mls/hr IVPB Q8H [facility] Rx#: [id number] Potassium Chloride 10 meq 100 200 In Water For Injection 1 100ml.bag @ 100 mls/hr IVPB Q1H [facility] Rx#: [id number] Pressure Bag (0.9 Sodium 36 36 6 Chloride) Sodium Chloride 0.9% 1, 1500 1500 750 000 ml @ 125 mls/hr IV . Q8H [facility] Rx#:[id number] Intake, IV Titration 1870.593 171.982 293.920 Amount Amiodarone 450 mg In 243.338 Dextrose 5% in Water 250 ml @ 0.5 MG/MIN 16.667 mls/hr IV .Q15H [facility] Rx#: [id number] Anidulafungin 200 mg In 200 Sodium Chloride 0.9% 200 ml @ 84 mls/hr IVPB ONCE ONE Rx#:[id number] Phenylephrine 40 mg In 303.659 171.982 22.567 Sodium Chloride 0.9% 250 ml @ 0.5 MCG/KG/MIN 12. 287 mls/hr IV .[id number] [facility] Rx#:[id number] Piperacillin-Tazobactam 3 100 .375 gm In Sodium Chloride 0.9% 100 ml @ 25 mls/hr IVPB Q8H [facility] Rx#: [id number] Sodium Chloride 0.9% 1, 1000 000 ml @ 999 mls/hr IV . Q1H1M [facility] Rx#:[id number] Sodium Phosphate 30 mmol 250 In Dextrose 5% in Water 250 ml @ 65 mls/hr IVPB ONCE ONE Rx#:[id number] propofoL 1,000 mg In 16.934 0 28.015 Empty Bag 1 bag @ 15 MCG/ KG/MIN 5.348 mls/hr IV . [id number] [facility] Rx#:[id number] Output: Gastric Drainage 100 Urine 470 565 320 Stool 600 Other: Voiding Method Indwelling Catheter Indwelling Catheter Indwelling Catheter ABP, PAP, CO, CI - Last Documented Arterial Blood Pressure 117/55 - Labs CBC & Chem 7: 01/31/23 03:55 01/31/23 03:55 Labs: Abnormal Lab Results - Last 24 Hours (Table) 01/30/23 01/30/23 01/30/23 Range/Units 09:20 17:41 23:27 WBC (3.8-10.6) k/uL RBC (4.30-5.90) m/uL Hgb (13.0-17.5) gm/dL Hct (39.0-53.0) % MCH (25.0-35.0) pg MCHC (31.0-37.0) g/dL RDW (11.5-15.5) % Plt Count (150-450) k/uL Neutrophils # (Manual) (1.3-7.7) k/uL Lymphocytes # (Manual) (1.0-4.8) k/uL Monocytes # (Manual) (0-1.0) k/uL Myelocytes # (Manual) (0) k/uL Nucleated RBCs (0-0) /100 WBC Fibrinogen 549 H (200-500) mg/dL ABG pO2 (83-108) mmHg ABG O2 Saturation (94-97) % Chloride (98-107) mmol/L BUN (9-20) mg/dL Creatinine (0.66-1.25) mg/dL Glucose (74-99) mg/dL POC Glucose (mg/dL) 129 H 122 H (70-110) mg/dL Calcium (8.4-10.2) mg/dL Ionized Calcium Paula (4.5-5.3) mg/dL Phosphorus (2.5-4.5) mg/dL Total Bilirubin (0.2-1.3) mg/dL AST (17-59) U/L ALT (4-49) U/L Total Protein (6.3-8.2) g/dL Total Protein (PEP) (6.2-8.2) d/dL Albumin (3.5-5.0) g/dL Albumin (PEP) (3.8-4.9) d/dL Vitamin B12 (200.0-944.0) pg/mL 01/31/23 01/31/23 01/31/23 Range/Units 03:55 03:55 03:55 WBC 17.4 H (3.8-10.6) k/uL RBC 3.11 L (4.30-5.90) m/uL Hgb 7.7 L (13.0-17.5) gm/dL Hct 25.0 L (39.0-53.0) % MCH 24.8 L (25.0-35.0) pg MCHC 30.9 L (31.0-37.0) g/dL RDW 20.3 H (11.5-15.5) % Plt Count 67 L (150-450) k/uL Neutrophils # (Manual) 15.10 H (1.3-7.7) k/uL Lymphocytes # (Manual) 0.70 L (1.0-4.8) k/uL Monocytes # (Manual) 1.39 H (0-1.0) k/uL Myelocytes # (Manual) 0.17 H (0) k/uL Nucleated RBCs 8 H (0-0) /100 WBC Fibrinogen (200-500) mg/dL ABG pO2 (83-108) mmHg ABG O2 Saturation (94-97) % Chloride 113 H (98-107) mmol/L BUN 24 H (9-20) mg/dL Creatinine 0.51 L (0.66-1.25) mg/dL Glucose 123 H (74-99) mg/dL POC Glucose (mg/dL) (70-110) mg/dL Calcium 6.7 L (8.4-10.2) mg/dL Ionized Calcium Paula 4.3 L (4.5-5.3) mg/dL Phosphorus 2.3 L (2.5-4.5) mg/dL Total Bilirubin 3.3 H (0.2-1.3) mg/dL AST 381 H (17-59) U/L ALT 425 H (4-49) U/L Total Protein 3.8 L (6.3-8.2) g/dL Total Protein (PEP) (6.2-8.2) d/dL Albumin 1.6 L (3.5-5.0) g/dL Albumin (PEP) (3.8-4.9) d/dL Vitamin B12 (200.0-944.0) pg/mL 01/31/23 01/31/23 01/31/23 Range/Units 04:45 04:45 05:40 WBC (3.8-10.6) k/uL RBC (4.30-5.90) m/uL Hgb (13.0-17.5) gm/dL Hct (39.0-53.0) % MCH (25.0-35.0) pg MCHC (31.0-37.0) g/dL RDW (11.5-15.5) % Plt Count (150-450) k/uL Neutrophils # (Manual) (1.3-7.7) k/uL Lymphocytes # (Manual) (1.0-4.8) k/uL Monocytes # (Manual) (0-1.0) k/uL Myelocytes # (Manual) (0) k/uL Nucleated RBCs (0-0) /100 WBC Fibrinogen (200-500) mg/dL ABG pO2 (83-108) mmHg ABG O2 Saturation (94-97) % Chloride (98-107) mmol/L BUN (9-20) mg/dL Creatinine (0.66-1.25) mg/dL Glucose (74-99) mg/dL POC Glucose (mg/dL) 131 H (70-110) mg/dL Calcium (8.4-10.2) mg/dL Ionized Calcium Paula (4.5-5.3) mg/dL Phosphorus (2.5-4.5) mg/dL Total Bilirubin (0.2-1.3) mg/dL AST (17-59) U/L ALT (4-49) U/L Total Protein (6.3-8.2) g/dL Total Protein (PEP) 3.6 L (6.2-8.2) d/dL Albumin (3.5-5.0) g/dL Albumin (PEP) 1.9 L (3.8-4.9) d/dL Vitamin B12 >1800.0 H (200.0-944.0) pg/mL 01/31/23 01/31/23 Range/Units 06:31 11:56 WBC (3.8-10.6) k/uL RBC (4.30-5.90) m/uL Hgb (13.0-17.5) gm/dL Hct (39.0-53.0) % MCH (25.0-35.0) pg MCHC (31.0-37.0) g/dL RDW (11.5-15.5) % Plt Count (150-450) k/uL Neutrophils # (Manual) (1.3-7.7) k/uL Lymphocytes # (Manual) (1.0-4.8) k/uL Monocytes # (Manual) (0-1.0) k/uL Myelocytes # (Manual) (0) k/uL Nucleated RBCs (0-0) /100 WBC Fibrinogen (200-500) mg/dL ABG pO2 125 H (83-108) mmHg ABG O2 Saturation 100.0 H (94-97) % Chloride (98-107) mmol/L BUN (9-20) mg/dL Creatinine (0.66-1.25) mg/dL Glucose (74-99) mg/dL POC Glucose (mg/dL) 121 H (70-110) mg/dL Calcium (8.4-10.2) mg/dL Ionized Calcium Paula (4.5-5.3) mg/dL Phosphorus (2.5-4.5) mg/dL Total Bilirubin (0.2-1.3) mg/dL AST (17-59) U/L ALT (4-49) U/L Total Protein (6.3-8.2) g/dL Total Protein (PEP) (6.2-8.2) d/dL Albumin (3.5-5.0) g/dL Albumin (PEP) (3.8-4.9) d/dL Vitamin B12 (200.0-944.0) pg/mL
[2023-01-31] MEDS: HEPARIN SOD,PORK IN 0.45% NACL 25,000 UNIT in 0.45% NACL 1 250ML.BAG IV SCH (13:19)
[2023-01-31 13:54] LABS: Free Kappa Lt Chain Qnt, Serum 1.81 mg/dL (0.33-1.94); Free Lambda Lt Chain Qnt, Seru 2.44 mg/dL (0.57-2.63)
--- NOTE | 2023-01-31 14:38 | P.PN ---
Subjective Progress Note Date: 01/31/23 (francisco charting seen at 0945) Patient is a 67 -year-old male with history of high blood pressure, atrial fibrillation, diabetes mellitus type 2, obstructive uropathy, and long-standing ventral hernia who presented to the ER from his [facility] due to syncopal episode. In the ER he underwent extensive evaluation. On arrival was vital signs were remarkable for blood pressure 67/33 and a pulse of 60. Laboratory analysis was reviewed including a CBC, coagulation studies, CMP, liver function, lactic acid, and troponin which were remarkable for white blood cell count 15, hemoglobin 8.7, hematocrit 29.9, INR 1.6, carbon dioxide 14, anion gap 19, , lactic acid 9.6. Influenza A/B/RSV/COVID-[address] abdomen and pelvis completed which showed small bowel ischemia versus obstruction, ascites, cholelithiasis. In the ER he was given 2 L normal saline. He remained hypot ensive and was started on norepinephrine and Zosyn. Arrangements were made for admission to the ICU. He was seen by surgery, he was administered a dose of K Centra and underwent urgent exploratory laparotomy with small bowel resection and jejunostomy. The majority of the small bowel was resected with approximately 1 foot of jejunum that was viable, and duodenum was also viable. 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 Postoperatively he required 4 untis of pRBC. The night after surgery the patient's vasopressor requirements increased and he was subsequently started on phenylephrine and vasopressin. His cortisol was 16 which is not adequate for his state of shock and he was started on cortef. On 01/28 he went into A. fib with RVR necessitating a amiodarone drip. He vaso and phenylephrine were able to be weaned off by the morning of 01/29. He struggled with sinus tachy on 01/29 and vaso pressors were adjusted. Patient seen and examined at bedside. Patient remains on vent. He is currently following commands and meeting weaning parameters. Per nursing no acute events overnight. Working on weaning phenylephrine. Vital signs reviewed General: Ill appearing, mild distress, appears at stated age Cardiovascular: S1S2 reg, no murmur, positive posterior tibial pulse bilateral, Lungs: Course bs bilateral, no rhonchi, no rales , no accessory muscle use Abdominal: soft, nontender to palpation, no guarding, no appreciable organomegaly, +ostomy, + midline dressing without soak through Ext: + gross muscle atrophy, no edema b/l lower extremities, no contractures Neuro: awake on vent, breathing over set rate, moving upper extremities independently Psych: Awake, can follow commands for a thumbs up Assessment/Plan: Ischemic colitis s/p small bowel resection with jejunostomy, 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 They recommend transfusion for platelets less than 50. Okay for clear liquids. -Infectious disease note reviewed: Continue with Zosyn -Pulmonary note reviewed: If patient meets spontaneous breathing requirements would recommend extubation - Zosyn 3.375 g IVPB q 8 hours D#6 - Andiulafungin 100 mg daily D#2 - NGT - hold Lopressor - solucortef 50 IVP BID - off vaso and norepi, wean phenylephrine as able - repeat CMP in AM Hypophosphatemia, Hypocalcemia - TPN, replace with next dosing - calcium gluconate 1 gram IVPB Atrial fibrillation with RVR -Cardiology note reviewed: Anticoagulation when cleared by surgery continue oral amiodarone - s/p amio gtt, on amio -Metoprolol on hold secondary to hypotension - Heparin gtt to start today Anemia, due to acute blood loss- s/p 4 units pRBC Coagulopathy Thrombocytopenia - s/p Kcentra - Follow CBC - no need for iron studies due to transfusion -Hematology note reviewed: Can be anticoagulated as long his platelets remained greater than 50,000 and there is no gross bleeding. Diabetes mellitus type 2 - not on chronic medications - SSI, follow BS Acute kidney Injury due to ATN, resolved Lactic acidosis , resolved Chronic: Hypertension Cirrhosis Constipation Gastric ulcer Encephalopathy Imaging: Chest x-ray as reviewed by me: Right basilar opacification likely pleural effusion Data Review: T-max in the last 24 hours 99.7 Labs reviewed for today include CBC with differential, CMP, magnesium, phosphorus, vitamin B12, full acid, free and free lambda which were remarkable for white blood cell count 17.4, hemoglobin 7.7, platelets 67 down from 94, neutrophils 15.1, chloride 113, calcium 6.7, phosphorus 2.3, bilirubin 3.3, AST 381, ALT 425, albumin 1.6, vitamin B12 greater than 1800. DVT prophylaxis: start lovenox 40 mg daily Discussed with: Patient, nursing Anticipated discharge date: Pending clinical course Anticipated discharge place: Pending clinical course This dictation was prepared using [employer] voice recognition software. Though every attempt is made to correct errors during dictation some may still exist. Objective - Vital Signs Vital signs: Vital Signs Temp 97.8 F 01/31/23 12:00 Pulse 77 01/31/23 14:15 Resp 29 H 01/31/23 14:15 BP 96/62 01/31/23 14:15 Pulse Ox 97 01/31/23 14:15 FiO2 30 01/31/23 12:00 Intake & Output 01/30/23 01/31/23 01/31/23 18:59 06:59 18:59 Intake Total 3466.593 2007.982 1499.920 Output Total 1170 565 430 Balance 2296.593 9843.990 3314.920 Weight 79.5 kg Intake: IV 1596 1836 1206 Mvi, Adult No.4 with Vit 60 K 10 ml Trace (Conc-1Ml/ Dose) 1 ml In Amino Acid 5%-D15w+Lytes*E* 1,000 ml @ 30 mls/hr IV .Q24H [facility] Rx#:[id number] Piperacillin-Tazobactam 3 200 .375 gm In Sodium Chloride 0.9% 100 ml @ 25 mls/hr IVPB Q8H [facility] Rx#: [id number] Potassium Chloride 10 meq 100 200 In Water For Injection 1 100ml.bag @ 100 mls/hr IVPB Q1H [facility] Rx#: [id number] Pressure Bag (0.9 Sodium 36 36 6 Chloride) Sodium Chloride 0.9% 1, 1500 1500 1000 000 ml @ 125 mls/hr IV . Q8H [facility] Rx#:[id number] Intake, IV Titration 1870.593 171.982 293.920 Amount Amiodarone 450 mg In 243.338 Dextrose 5% in Water 250 ml @ 0.5 MG/MIN 16.667 mls/hr IV .Q15H [facility] Rx#: [id number] Anidulafungin 200 mg In 200 Sodium Chloride 0.9% 200 ml @ 84 mls/hr IVPB ONCE ONE Rx#:[id number] Phenylephrine 40 mg In 303.659 171.982 22.567 Sodium Chloride 0.9% 250 ml @ 0.5 MCG/KG/MIN 12. 287 mls/hr IV .[id number] [facility] Rx#:[id number] Piperacillin-Tazobactam 3 100 .375 gm In Sodium Chloride 0.9% 100 ml @ 25 mls/hr IVPB Q8H [facility] Rx#: [id number] Sodium Chloride 0.9% 1, 1000 000 ml @ 999 mls/hr IV . Q1H1M [facility] Rx#:[id number] Sodium Phosphate 30 mmol 250 In Dextrose 5% in Water 250 ml @ 65 mls/hr IVPB ONCE [facility] Rx#:[id number] propofoL 1,000 mg In 16.934 0 28.015 Empty Bag 1 bag @ 15 MCG/ KG/MIN 5.348 mls/hr IV . [id number] [facility] Rx#:[id number] Output: Gastric Drainage 100 Urine 470 565 430 Stool 600 Other: Voiding Method Indwelling Catheter Indwelling Catheter Indwelling Catheter ABP, PAP, CO, CI - Last Documented Arterial Blood Pressure 122/61 - Labs CBC & Chem 7: 01/31/23 03:55 01/31/23 03:55 Labs: Abnormal Lab Results - Last 24 Hours (Table) 01/30/23 01/30/23 01/31/23 Range/Units 17:41 23:27 03:55 WBC 17.4 H (3.8-10.6) k/uL RBC 3.11 L (4.30-5.90) m/uL Hgb 7.7 L (13.0-17.5) gm/dL Hct 25.0 L (39.0-53.0) % MCH 24.8 L (25.0-35.0) pg MCHC 30.9 L (31.0-37.0) g/dL RDW 20.3 H (11.5-15.5) % Plt Count 67 L (150-450) k/uL Neutrophils # (Manual) 15.10 H (1.3-7.7) k/uL Lymphocytes # (Manual) 0.70 L (1.0-4.8) k/uL Monocytes # (Manual) 1.39 H (0-1.0) k/uL Myelocytes # (Manual) 0.17 H (0) k/uL Nucleated RBCs 8 H (0-0) /100 WBC ABG pO2 (83-108) mmHg ABG O2 Saturation (94-97) % Chloride (98-107) mmol/L BUN (9-20) mg/dL Creatinine (0.66-1.25) mg/dL Glucose (74-99) mg/dL POC Glucose (mg/dL) 129 H 122 H (70-110) mg/dL Calcium (8.4-10.2) mg/dL Ionized Calcium Paula (4.5-5.3) mg/dL Phosphorus (2.5-4.5) mg/dL Total Bilirubin (0.2-1.3) mg/dL AST (17-59) U/L ALT (4-49) U/L Total Protein (6.3-8.2) g/dL Total Protein (PEP) (6.2-8.2) d/dL Albumin (3.5-5.0) g/dL Albumin (PEP) (3.8-4.9) d/dL Vitamin B12 (200.0-944.0) pg/mL 01/31/23 01/31/23 01/31/23 Range/Units 03:55 03:55 04:45 WBC (3.8-10.6) k/uL RBC (4.30-5.90) m/uL Hgb (13.0-17.5) gm/dL Hct (39.0-53.0) % MCH (25.0-35.0) pg MCHC (31.0-37.0) g/dL RDW (11.5-15.5) % Plt Count (150-450) k/uL Neutrophils # (Manual) (1.3-7.7) k/uL Lymphocytes # (Manual) (1.0-4.8) k/uL Monocytes # (Manual) (0-1.0) k/uL Myelocytes # (Manual) (0) k/uL Nucleated RBCs (0-0) /100 WBC ABG pO2 (83-108) mmHg ABG O2 Saturation (94-97) % Chloride 113 H (98-107) mmol/L BUN 24 H (9-20) mg/dL Creatinine 0.51 L (0.66-1.25) mg/dL Glucose 123 H (74-99) mg/dL POC Glucose (mg/dL) (70-110) mg/dL Calcium 6.7 L (8.4-10.2) mg/dL Ionized Calcium Paula 4.3 L (4.5-5.3) mg/dL Phosphorus 2.3 L (2.5-4.5) mg/dL Total Bilirubin 3.3 H (0.2-1.3) mg/dL AST 381 H (17-59) U/L ALT 425 H (4-49) U/L Total Protein 3.8 L (6.3-8.2) g/dL Total Protein (PEP) 3.6 L (6.2-8.2) d/dL Albumin 1.6 L (3.5-5.0) g/dL Albumin (PEP) 1.9 L (3.8-4.9) d/dL Vitamin B12 (200.0-944.0) pg/mL 01/31/23 01/31/23 01/31/23 Range/Units 04:45 05:40 06:31 WBC (3.8-10.6) k/uL RBC (4.30-5.90) m/uL Hgb (13.0-17.5) gm/dL Hct (39.0-53.0) % MCH (25.0-35.0) pg MCHC (31.0-37.0) g/dL RDW (11.5-15.5) % Plt Count (150-450) k/uL Neutrophils # (Manual) (1.3-7.7) k/uL Lymphocytes # (Manual) (1.0-4.8) k/uL Monocytes # (Manual) (0-1.0) k/uL Myelocytes # (Manual) (0) k/uL Nucleated RBCs (0-0) /100 WBC ABG pO2 125 H (83-108) mmHg ABG O2 Saturation 100.0 H (94-97) % Chloride (98-107) mmol/L BUN (9-20) mg/dL Creatinine (0.66-1.25) mg/dL Glucose (74-99) mg/dL POC Glucose (mg/dL) 131 H (70-110) mg/dL Calcium (8.4-10.2) mg/dL Ionized Calcium Paula (4.5-5.3) mg/dL Phosphorus (2.5-4.5) mg/dL Total Bilirubin (0.2-1.3) mg/dL AST (17-59) U/L ALT (4-49) U/L Total Protein (6.3-8.2) g/dL Total Protein (PEP) (6.2-8.2) d/dL Albumin (3.5-5.0) g/dL Albumin (PEP) (3.8-4.9) d/dL Vitamin B12 >1800.0 H (200.0-944.0) pg/mL 01/31/23 Range/Units 11:56 WBC (3.8-10.6) k/uL RBC (4.30-5.90) m/uL Hgb (13.0-17.5) gm/dL Hct (39.0-53.0) % MCH (25.0-35.0) pg MCHC (31.0-37.0) g/dL RDW (11.5-15.5) % Plt Count (150-450) k/uL Neutrophils # (Manual) (1.3-7.7) k/uL Lymphocytes # (Manual) (1.0-4.8) k/uL Monocytes # (Manual) (0-1.0) k/uL Myelocytes # (Manual) (0) k/uL Nucleated RBCs (0-0) /100 WBC ABG pO2 (83-108) mmHg ABG O2 Saturation (94-97) % Chloride (98-107) mmol/L BUN (9-20) mg/dL Creatinine (0.66-1.25) mg/dL Glucose (74-99) mg/dL POC Glucose (mg/dL) 121 H (70-110) mg/dL Calcium (8.4-10.2) mg/dL Ionized Calcium Paula (4.5-5.3) mg/dL Phosphorus (2.5-4.5) mg/dL Total Bilirubin (0.2-1.3) mg/dL AST (17-59) U/L ALT (4-49) U/L Total Protein (6.3-8.2) g/dL Total Protein (PEP) (6.2-8.2) d/dL Albumin (3.5-5.0) g/dL Albumin (PEP) (3.8-4.9) d/dL Vitamin B12 (200.0-944.0) pg/mL Microbiology - Last 24 Hours (Table) 01/26/23 05:50 Blood Culture - Final Blood 01/26/23 05:28 Blood Culture - Final Blood
[2023-01-31] MEDS ORDERED: SODIUM CHLORIDE 0.9% 1,000 ML IV ONE (16:09)
[2023-01-31] MEDS ORDERED: Phosphorus Replacement Protoco 1 EACH MISC MISCELLANE PRN (16:27)
[2023-01-31] MEDS ORDERED: SODIUM PHOSPHATE 15 MMOL in DEXTROSE 5% IN WATER 250 ML IVPB ONE ×2 (17:30)
[2023-01-31] MEDS: NOREPINEPHRINE 8 MG in SODIUM CHLORIDE 0.9% 250 ML IV SCH (17:44)
[2023-01-31 17:52] LABS: Glucose,Whole Blood 140 mg/dL (70-110)
[2023-01-31] MEDS: MVI, ADULT NO.4 WITH VIT K 10 ML, TRACE (CONC-1ML/DOSE) 1 ML, SODIUM ACETATE 30 MEQ, CA... IV SCH ×7 (18:09)
[2023-01-31] MEDS: ANIDULAFUNGIN 100 MG in SODIUM CHLORIDE 0.9% 100 ML IVPB SCH (18:50)
[2023-01-31] MEDS: HEPARIN SODIUM 1,000 UN/ML (10ML VL) IV PRN (20:07)
[2023-01-31 23:53] LABS: Glucose,Whole Blood 142 mg/dL (70-110)
[2023-02-01] MEDS: INSULIN ASPART (NovoLOG) 100 UNIT/ML VIAL SQ SCH ×4 (00:07→18:50)
[2023-02-01] MEDS: AMIODARONE 450 MG in DEXTROSE 5% IN WATER 250 ML IV SCH ×4 (00:17→14:03)
[2023-02-01] MEDS: HYDROmorphone 0.5 MG/0.5 ML SYRINGE IVP PRN ×6 (00:35→16:25)
[2023-02-01] MEDS: SODIUM CHLORIDE 0.9% 1,000 ML IV SCH ×5 (01:17→23:44)
[2023-02-01] MEDS: HEPARIN SODIUM 1,000 UN/ML (10ML VL) IV PRN ×4 (01:45→22:52)
[2023-02-01 04:50] LABS: African American GFR (CKD) >90 (>60 ml/min/1.73 sqM); Anion Gap 3 mmol/L; Blood Urea Nitrogen 25 mg/dL (9-20); Calcium 6.6 mg/dL (8.4-10.2); Carbon Dioxide 21 mmol/L (22-30); Chloride 114 mmol/L (98-107); Glucose 141 mg/dL (74-99); Magnesium 2.3 mg/dL (1.6-2.3); Non-African American GFR(CKD) >90 (>60 ml/min/1.73 sqM); Phosphorus 2.5 mg/dL (2.5-4.5); Sodium 138 mmol/L (137-145)
[2023-02-01 04:51] LABS: INR 1.1 (<1.2); Prothrombin Time 11.8 sec (9.0-12.0)
[2023-02-01 05:15] LABS: Anisocytosis Moderate; HCT 25.7 % (39.0-53.0); HGB 7.9 gm/dL (13.0-17.5); Hypochromasia Marked; MCH 24.9 pg (25.0-35.0); MCHC 30.8 g/dL (31.0-37.0); MCV 80.9 fL (80.0-100.0); Mean Platelet Volume 13.4; Microcytosis Slight; Poikilocytosis Slight; RBC 3.18 m/uL (4.30-5.90); RDW 20.8 % (11.5-15.5)
[2023-02-01 05:18] LABS: Platelet Count 80 k/uL (150-450)
[2023-02-01] MEDS: POTASSIUM CHLORIDE 10 MEQ in WATER FOR INJECTION 1 100ML.BAG IVPB SCH ×2 (05:57→07:05)
[2023-02-01] MEDS: ARTIFICIAL TEARS-HYPROMELLOSE DROPS 15 ML BTL RIGHT EYE SCH ×2 (05:57→21:51)
[2023-02-01 06:03] LABS: Glucose,Whole Blood 94 mg/dL (70-110)
[2023-02-01 06:25] LABS: ABG Base Excess -1.9 mmol/L; ABG HCO3 23 mmol/L (21-25); ABG Oxygen Saturation 98.3 % (94-97); ABG PCO2 37 mmHg (35-45); ABG PO2 126 mmHg (83-108); ABG TCO2 24 mmol/L (19-24); Allen Test Performed? Yes
[2023-02-01] MEDS: PIPERACILLIN-TAZOBACTAM 3.375 GM in SODIUM CHLORIDE 0.9% 100 ML IVPB SCH ×3 (06:50→21:52)
[2023-02-01 07:05] LABS: Band Neutrophils % 2 %; Lymphocytes # (M) 1.41 k/uL (1.0-4.8); Metamyelocytes # (M) 0.53 k/uL (0); Metamyelocytes % 3 %; Monocytes # (M) 0.53 k/uL (0-1.0); Myelocytes # (M) 0.35 k/uL (0); Myelocytes % 2 %; Neutrophils % (M) 85 %; Nucleated Red Blood Cells 2 /100 WBC (0-0); Total Cells Counted 200; WBC 17.6 k/uL (3.8-10.6)
--- NOTE | 2023-02-01 08:02 | XR ---
EXAMINATION TYPE: XR chest 1V portable DATE OF EXAM: 02/01/2023 COMPARISON: 01/31/2023 HISTORY: SOB, Follow Up FINDINGS: Indwelling tubes and catheters are unchanged. No change in bibasilar opacities. Stable appearance of the cardio-mediastinal structures at this time. Pleural effusion unchanged. IMPRESSION: 1. Stable portable chest. Clinical correlation and follow up until resolution is recommended.
[2023-02-01] MEDS: CHLORHEXIDINE GLUCONATE 15 ML CUP MUCOUS MEM SCH (08:20)
[2023-02-01] MEDS: HYDROCORTISONE SUCCINATE 100 MG/2 ML VIAL IV SCH ×2 (08:21→21:50)
[2023-02-01] MEDS: PANTOPRAZOLE 40 MG/10 ML VIAL IVP SCH ×2 (08:22→21:51)
--- NOTE | 2023-02-01 10:07 | P.PN ---
Subjective Progress Note Date: 02/01/23 The patient is a 67-year-old male who is demented to the hospital with abdominal discomfort. 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 The patient developed postoperative atrial fibrillation and therefore cardiology was consulted. He was started on amiodaro ne drip and subsequently converted to sinus mechanism. Postoperative complications include acute hypoxic respiratory failure and septic shock. The patient remains ventilated in the ICU. According to nursing staff there are plans for extubation later today. GENERAL: Ill-appearing, well-nourished and in no acute distress. Currently on ventilator. NECK: Supple without JVD or thyromegaly. LUNGS: Breath sounds diminished to auscultation bilaterally. Respiration equal and unlabored. No wheezes, rales or rhonchi. HEART: Regular rate and rhythm without murmurs, rubs or gallops. S1 and S2 heard. EXTREMITIES: Normal range of motion, mild edema. No clubbing or cyanosis. Peripheral pulses intact and strong. TELEMETRY: Sinus rhythm to sinus tachycardia overnight. IMPRESSION: Atrial fibrillation with RVR, currently in sinus rhythm Acute ischemic bowel, status post resection Thrombocytopenia Anemia, blood loss secondary to surgery PLAN: Start anticoagulation when cleared by surgery Patient is cleared to start anticoagulation per hematology as long as platelets remain above 50,000 Continue IV amiodarone, consider discontinuing after extubation. No need for long-term oral antiarrhythmic. Continue supportive treatment Further recommendations be clinical course I am dictating on behalf of Dr Jerson Serrano's history/physical and assessment/plan. Objective - Vital Signs Vital signs: Vital Signs Temp 97.7 F 02/01/23 08:00 Pulse 63 02/01/23 09:15 Resp 16 02/01/23 09:15 BP 85/58 02/01/23 09:15 Pulse Ox 99 02/01/23 09:15 FiO2 30 02/01/23 09:00 Intake & Output 01/31/23 02/01/23 02/01/23 18:59 06:59 18:59 Intake Total 2004.135 1930.593 471.136 Output Total 805 550 765 Balance 7245.127 0058.593 -293.864 Weight 79.5 kg 81.9 kg Intake: IV 1706 1533 384 Potassium Chloride 10 meq 200 In Water For Injection 1 100ml.bag @ 100 mls/hr IVPB Q1H [facility] Rx#: [id number] Pressure Bag (0.9 Sodium 6 33 9 Chloride) Sodium Chloride 0.9% 1, 1500 1500 375 000 ml @ 125 mls/hr IV . Q8H [facility] Rx#:[id number] Intake, IV Titration 299.135 397.593 87.136 Amount Amiodarone 450 mg In 243.338 Dextrose 5% in Water 250 ml @ 0.5 MG/MIN 16.667 mls/hr IV .Q15H [facility] Rx#: [id number] Amiodarone 450 mg In 145.003 Dextrose 5% in Water 250 ml @ 0.5 MG/MIN 16.667 mls/hr IV .Q15H [facility] Rx#: [id number] Heparin Sod,Pork in 0.45% 106.432 64.704 NaCl 25,000 unit In 0.45 % NaCl 1 250ml.bag @ 12 UNITS/KG/HR 7.68 mls/hr IV .Q24H [facility] Rx#: [id number] Norepinephrine 8 mg In 4.769 68.914 10.102 Sodium Chloride 0.9% 250 ml @ 0.03 MCG/KG/MIN 4. 615 mls/hr IV .Q24H [facility] Rx#:[id number] Phenylephrine 40 mg In 22.567 Sodium Chloride 0.9% 250 ml @ 0.5 MCG/KG/MIN 12. 287 mls/hr IV .[id number] [facility] Rx#:[id number] propofoL 1,000 mg In 28.461 77.244 12.330 Empty Bag 1 bag @ 15 MCG/ KG/MIN 5.348 mls/hr IV . [id number] [facility] Rx#:[id number] Output: Gastric Drainage 75 Urine 705 550 195 Stool 100 495 Other: Voiding Method Indwelling Catheter Indwelling Catheter ABP, PAP, CO, CI - Last Documented Arterial Blood Pressure 104/50 - Labs CBC & Chem 7: 02/01/23 04:08 02/01/23 04:08 Labs: Abnormal Lab Results - Last 24 Hours (Table) 01/31/23 01/31/23 01/31/23 Range/Units 04:45 10:40 11:56 WBC (3.8-10.6) k/uL RBC (4.30-5.90) m/uL Hgb (13.0-17.5) gm/dL Hct (39.0-53.0) % MCH (25.0-35.0) pg MCHC (31.0-37.0) g/dL RDW (11.5-15.5) % Plt Count (150-450) k/uL Neutrophils # (Manual) (1.3-7.7) k/uL Metamyelocytes # (Man) (0) k/uL Myelocytes # (Manual) (0) k/uL Nucleated RBCs (0-0) /100 WBC APTT (22.0-30.0) sec ABG pO2 (83-108) mmHg ABG O2 Saturation (94-97) % Chloride (98-107) mmol/L Carbon Dioxide (22-30) mmol/L BUN (9-20) mg/dL Creatinine (0.66-1.25) mg/dL Glucose (74-99) mg/dL POC Glucose (mg/dL) 121 H (70-110) mg/dL Calcium (8.4-10.2) mg/dL Vitamin B12 >1800.0 H (200.0-944.0) pg/mL Procalcitonin 3.94 H (0.02-0.09) ng/mL 01/31/23 01/31/23 01/31/23 Range/Units 17:50 19:08 23:52 WBC (3.8-10.6) k/uL RBC (4.30-5.90) m/uL Hgb (13.0-17.5) gm/dL Hct (39.0-53.0) % MCH (25.0-35.0) pg MCHC (31.0-37.0) g/dL RDW (11.5-15.5) % Plt Count (150-450) k/uL Neutrophils # (Manual) (1.3-7.7) k/uL Metamyelocytes # (Man) (0) k/uL Myelocytes # (Manual) (0) k/uL Nucleated RBCs (0-0) /100 WBC APTT 31.5 H (22.0-30.0) sec ABG pO2 (83-108) mmHg ABG O2 Saturation (94-97) % Chloride (98-107) mmol/L Carbon Dioxide (22-30) mmol/L BUN (9-20) mg/dL Creatinine (0.66-1.25) mg/dL Glucose (74-99) mg/dL POC Glucose (mg/dL) 140 H 142 H (70-110) mg/dL Calcium (8.4-10.2) mg/dL Vitamin B12 (200.0-944.0) pg/mL Procalcitonin (0.02-0.09) ng/mL 02/01/23 02/01/23 02/01/23 Range/Units 00:45 04:08 04:08 WBC 17.6 H (3.8-10.6) k/uL RBC 3.18 L (4.30-5.90) m/uL Hgb 7.9 L (13.0-17.5) gm/dL Hct 25.7 L (39.0-53.0) % MCH 24.9 L (25.0-35.0) pg MCHC 30.8 L (31.0-37.0) g/dL RDW 20.8 H (11.5-15.5) % Plt Count 80 L (150-450) k/uL Neutrophils # (Manual) 15.30 H (1.3-7.7) k/uL Metamyelocytes # (Man) 0.53 H (0) k/uL Myelocytes # (Manual) 0.35 H (0) k/uL Nucleated RBCs 2 H (0-0) /100 WBC APTT 31.9 H (22.0-30.0) sec ABG pO2 (83-108) mmHg ABG O2 Saturation (94-97) % Chloride 114 H (98-107) mmol/L Carbon Dioxide 21 L (22-30) mmol/L BUN 25 H (9-20) mg/dL Creatinine 0.43 L (0.66-1.25) mg/dL Glucose 141 H (74-99) mg/dL POC Glucose (mg/dL) (70-110) mg/dL Calcium 6.6 L (8.4-10.2) mg/dL Vitamin B12 (200.0-944.0) pg/mL Procalcitonin (0.02-0.09) ng/mL 02/01/23 02/01/23 Range/Units 06:19 06:21 WBC (3.8-10.6) k/uL RBC (4.30-5.90) m/uL Hgb (13.0-17.5) gm/dL Hct (39.0-53.0) % MCH (25.0-35.0) pg MCHC (31.0-37.0) g/dL RDW (11.5-15.5) % Plt Count (150-450) k/uL Neutrophils # (Manual) (1.3-7.7) k/uL Metamyelocytes # (Man) (0) k/uL Myelocytes # (Manual) (0) k/uL Nucleated RBCs (0-0) /100 WBC APTT 34.5 H (22.0-30.0) sec ABG pO2 126 H (83-108) mmHg ABG O2 Saturation 98.3 H (94-97) % Chloride (98-107) mmol/L Carbon Dioxide (22-30) mmol/L BUN (9-20) mg/dL Creatinine (0.66-1.25) mg/dL Glucose (74-99) mg/dL POC Glucose (mg/dL) (70-110) mg/dL Calcium (8.4-10.2) mg/dL Vitamin B12 (200.0-944.0) pg/mL Procalcitonin (0.02-0.09) ng/mL Microbiology - Last 24 Hours (Table) 01/26/23 05:50 Blood Culture - Final Blood 01/26/23 05:28 Blood Culture - Final Blood
--- NOTE | 2023-02-01 11:26 | P.PN ---
Subjective Progress Note Date: 02/01/23 CHIEF COMPLAINT: Abdominal pain HISTORY OF PRESENT ILLNESS: Patient is in the ICU on mechanical ventilation. He is postop day #6 status post exploratory laparotomy with small bowel resection and jejunostomy for ischemic small intestine and intra-abdominal adhesions. Patient was unable to be extubated yesterday. They're planning to extubate today. Afebrile. WBC 17.6 HG be 7.9 platelets 60. Patient currently on IV heparin for A. fib. PHYSICAL EXAM: VITAL SIGNS: Reviewed. GENERAL: Well-developed in no acute distress. ABDOMEN: Soft. Nondistended. Midline incisional dressing clean dry and intact. Jejunostomy on the left with yellowish output. Stoma pink NEUROLOGIC: intubated ASSESSMENT: 1. Ischemic small intestine and intra-abdominal adhesions status post exploratory laparotomy with small bowel resection and jejunostomy PLAN: -Continue ICU management -Continue supportive care -Okay to remove NG tube if respiratory status is stable after extubation -May begin clear liquids when stable -Patient will require lifelong TPN -Continue TPN for nutrition support -CODE STATUS was changed to DO NOT RESUSCITATE Physician Net Web Application Developer note has been reviewed by physician. Signing provider agrees with the documented findings, assessment, and plan of care. I have personally seen and examined the patient, reviewed the FIBER TECHNOLOGIST /PAs history, exam and MDM and agree with the assessment and plan as written. Based on total visit time, I have performed more than 50% of the visit. As above: Patient doing better today. He is now extubated. Complaining of mild soreness. Ostomy output bilious. Ostomy more pink in color. Labs noted. Continue supportive care. Continue TPN. Operative findings discussed with patient. We'll continue to discuss ramifications as the patient recovers. Objective - Vital Signs Vital signs: Vital Signs Temp 97.7 F 02/01/23 08:00 Pulse 73 02/01/23 10:25 Resp 15 02/01/23 10:25 BP 95/74 02/01/23 10:25 Pulse Ox 97 02/01/23 10:25 FiO2 30 02/01/23 10:15 Intake & Output 01/31/23 02/01/23 02/01/23 18:59 06:59 18:59 Intake Total 2005.135 1930.593 599.136 Output Total 805 550 825 Balance 8479.311 1949.593 -225.864 Weight 79.5 kg 81.9 kg Intake: IV 1706 1533 512 Potassium Chloride 10 meq 200 In Water For Injection 1 100ml.bag @ 100 mls/hr IVPB Q1H [facility] Rx#: [id number] Pressure Bag (0.9 Sodium 6 33 12 Chloride) Sodium Chloride 0.9% 1, 1500 1500 500 000 ml @ 125 mls/hr IV . Q8H [facility] Rx#:[id number] Intake, IV Titration 299.135 397.593 87.136 Amount Amiodarone 450 mg In 243.338 Dextrose 5% in Water 250 ml @ 0.5 MG/MIN 16.667 mls/hr IV .Q15H [facility] Rx#: [id number] Amiodarone 450 mg In 145.003 Dextrose 5% in Water 250 ml @ 0.5 MG/MIN 16.667 mls/hr IV .Q15H [facility] Rx#: [id number] Heparin Sod,Pork in 0.45% 106.432 64.704 NaCl 25,000 unit In 0.45 % NaCl 1 250ml.bag @ 12 UNITS/KG/HR 7.68 mls/hr IV .Q24H [facility] Rx#: [id number] Norepinephrine 8 mg In 4.769 68.914 10.102 Sodium Chloride 0.9% 250 ml @ 0.03 MCG/KG/MIN 4. 615 mls/hr IV .Q24H [facility] Rx#:[id number] Phenylephrine 40 mg In 22.567 Sodium Chloride 0.9% 250 ml @ 0.5 MCG/KG/MIN 12. 287 mls/hr IV .[id number] [facility] Rx#:[id number] propofoL 1,000 mg In 28.461 77.244 12.330 Empty Bag 1 bag @ 15 MCG/ KG/MIN 5.348 mls/hr IV . [id number] [facility] Rx#:[id number] Output: Gastric Drainage 75 Urine 705 550 255 Stool 100 495 Other: Voiding Method Indwelling Catheter Indwelling Catheter Indwelling Catheter ABP, PAP, CO, CI - Last Documented Arterial Blood Pressure 124/58 - Labs CBC & Chem 7: 02/01/23 04:08 02/01/23 04:08 Labs: Abnormal Lab Results - Last 24 Hours (Table) 01/31/23 01/31/23 01/31/23 Range/Units 10:40 11:56 17:50 WBC (3.8-10.6) k/uL RBC (4.30-5.90) m/uL Hgb (13.0-17.5) gm/dL Hct (39.0-53.0) % MCH (25.0-35.0) pg MCHC (31.0-37.0) g/dL RDW (11.5-15.5) % Plt Count (150-450) k/uL Neutrophils # (Manual) (1.3-7.7) k/uL Metamyelocytes # (Man) (0) k/uL Myelocytes # (Manual) (0) k/uL Nucleated RBCs (0-0) /100 WBC APTT (22.0-30.0) sec ABG pO2 (83-108) mmHg ABG O2 Saturation (94-97) % Chloride (98-107) mmol/L Carbon Dioxide (22-30) mmol/L BUN (9-20) mg/dL Creatinine (0.66-1.25) mg/dL Glucose (74-99) mg/dL POC Glucose (mg/dL) 121 H 140 H (70-110) mg/dL Calcium (8.4-10.2) mg/dL Procalcitonin 3.94 H (0.02-0.09) ng/mL 01/31/23 01/31/23 02/01/23 Range/Units 19:08 23:52 00:45 WBC (3.8-10.6) k/uL RBC (4.30-5.90) m/uL Hgb (13.0-17.5) gm/dL Hct (39.0-53.0) % MCH (25.0-35.0) pg MCHC (31.0-37.0) g/dL RDW (11.5-15.5) % Plt Count (150-450) k/uL Neutrophils # (Manual) (1.3-7.7) k/uL Metamyelocytes # (Man) (0) k/uL Myelocytes # (Manual) (0) k/uL Nucleated RBCs (0-0) /100 WBC APTT 31.5 H 31.9 H (22.0-30.0) sec ABG pO2 (83-108) mmHg ABG O2 Saturation (94-97) % Chloride (98-107) mmol/L Carbon Dioxide (22-30) mmol/L BUN (9-20) mg/dL Creatinine (0.66-1.25) mg/dL Glucose (74-99) mg/dL POC Glucose (mg/dL) 142 H (70-110) mg/dL Calcium (8.4-10.2) mg/dL Procalcitonin (0.02-0.09) ng/mL 02/01/23 02/01/23 02/01/23 Range/Units 04:08 04:08 06:19 WBC 17.6 H (3.8-10.6) k/uL RBC 3.18 L (4.30-5.90) m/uL Hgb 7.9 L (13.0-17.5) gm/dL Hct 25.7 L (39.0-53.0) % MCH 24.9 L (25.0-35.0) pg MCHC 30.8 L (31.0-37.0) g/dL RDW 20.8 H (11.5-15.5) % Plt Count 80 L (150-450) k/uL Neutrophils # (Manual) 15.30 H (1.3-7.7) k/uL Metamyelocytes # (Man) 0.53 H (0) k/uL Myelocytes # (Manual) 0.35 H (0) k/uL Nucleated RBCs 2 H (0-0) /100 WBC APTT (22.0-30.0) sec ABG pO2 126 H (83-108) mmHg ABG O2 Saturation 98.3 H (94-97) % Chloride 114 H (98-107) mmol/L Carbon Dioxide 21 L (22-30) mmol/L BUN 25 H (9-20) mg/dL Creatinine 0.43 L (0.66-1.25) mg/dL Glucose 141 H (74-99) mg/dL POC Glucose (mg/dL) (70-110) mg/dL Calcium 6.6 L (8.4-10.2) mg/dL Procalcitonin (0.02-0.09) ng/mL 02/01/23 Range/Units 06:21 WBC (3.8-10.6) k/uL RBC (4.30-5.90) m/uL Hgb (13.0-17.5) gm/dL Hct (39.0-53.0) % MCH (25.0-35.0) pg MCHC (31.0-37.0) g/dL RDW (11.5-15.5) % Plt Count (150-450) k/uL Neutrophils # (Manual) (1.3-7.7) k/uL Metamyelocytes # (Man) (0) k/uL Myelocytes # (Manual) (0) k/uL Nucleated RBCs (0-0) /100 WBC APTT 34.5 H (22.0-30.0) sec ABG pO2 (83-108) mmHg ABG O2 Saturation (94-97) % Chloride (98-107) mmol/L Carbon Dioxide (22-30) mmol/L BUN (9-20) mg/dL Creatinine (0.66-1.25) mg/dL Glucose (74-99) mg/dL POC Glucose (mg/dL) (70-110) mg/dL Calcium (8.4-10.2) mg/dL Procalcitonin (0.02-0.09) ng/mL Microbiology - Last 24 Hours (Table) 01/26/23 05:50 Blood Culture - Final Blood 01/26/23 05:28 Blood Culture - Final Blood
--- NOTE | 2023-02-01 12:41 | P.PN ---
Subjective Progress Note Date: 02/01/23 Principal diagnosis: Respiratory failure. Reevaluated today on 01/28/2023, patient remains in the ICU, intubated and mechanically ventilated. His assist-control rate is 16 tidal volume is 500 FiO2 40% PEEP of 5 ABG showed a pO2 of 129 pCO2 32 pH of 7.40 and I cut down his FiO2 to 35%. Patient is off propofol this morning and he is able to follow instructions, seems to comprehend, and seems to be relatively intact. However the patient is still requiring significant amount of drips/pressors he is on vasopressin at 0.04 units. Hour is also on norepinephrine at 19 mcg/m, Rodrigue- Synephrine has been discontinued. His IV fluid is down to 75 mL per hour and his bicarb is down to 25 ML per hour drip. Remains on amiodarone, patient is on 0.5 mg/m, and he is yet to be seen by cardiology today, seems to be in atrial flutter. WBC count today remains elevated at 24.4 hemoglobin is 9.4, lactic acid is 7.3, patient will receive another bolus of saline this morning. Elected lites are normal renal profile is improving bicarb is down to 17 and his creatinine is down to 1.37, liver enzymes remain elevated with AST of 591 and ALT of 449 chest x-ray showed minimal basilar atelectasis, no clear-cut evidence of infiltrates. Patient was reevaluated today on 01/29/2023, remains in the ICU, intubated and mechanically ventilated. Patient continues to have issues with atrial fibri llation and RVR, remains on amiodarone drip, he is receiving beta blockers by cardiology however that seems to be dropping his blood pressure, patient remains on relatively high dose of norepinephrine at 0.16 mcg/kg/m and today I suggested transitioning norepinephrine to Rodrigue-Synephrine since he was doing much better as far as tachycardia while he was on Rodrigue-Synephrine. We'll try to start Rodrigue-Syne phrine and gradually tapered down his norepinephrine hoping that his tachycardia would get better with Rodrigue-Synephrine on board. Remains on propofol at 7 mcg/kg/m remains on Lovenox remains on Zosyn remains on amiodarone at 0.5 mg/m. Patient did receive metoprolol 2.5 mg IV push slowly earlier. Ventilator smith he is on assist control rate of 16 tidal volume 500 FiO2 35% PEEP of 5 up gases showed a BNP O2 of 147 pCO2 42 pH of 7.41. Hence his FiO2 was brought down to 35% from 40% his sodium bicarb corrected nicely hence I'm stopping his sodium bicarb drip his urine output is about 100 mL/h, patient remains on IV fluid about 1 25 mL per hour. Not to mention the patient was started on TPN. Overall the patient remains critically ill, he is not ready for weaning mostly because of his cardiac issues and intermittent episodes of hypotension syndrome requiring significant amount of pressors re elevated today on 01/30, patient remains in the ICU, intubated and mechanically ventilated. He is on assist control rate of 16 tidal volume 500 FiO2 35% and PEEP of 5 ABG showed a pO2 of 102 pCO2 34 pH of 7.45 patient remains on amiodarone at 0.5 mg/m remains on TPN with lipids he is on Rodrigue-Syne phrine 1.2 mcg/kg/m propofol 10 mcg/kg/m IV fluid and 1 25 mL per hour remains on Solu-Cortef 50 mg IV push every 12 hours is also on Zosyn blood pressure is marginal in spite of Rodrigue-Synephrine hence I recommended that the patient gets a bolus of 0.9 normal saline today, and I actually plan to hold his propofol today and give the patient mental status assessment and possibly a weaning trial with pressure support and CPAP. Yesterday the patient was having significant tachycardia however the patient responded well to transitioning norepinephrine to Rodrigue-Synephrine and his tachycardia did resolve. He is now in sinus rhythm and his rate is in the 70s. I believe she count is 20.4 hemoglobin is 7.7 electrolytes are normal renal profile remains normal. A blood sugar is also normal, liver enzymes remains a bit elevated with ALT of 459 and AST of 422 bilirubin is 2.2. Progress note dated 01/31/2023. This is a 67-year-old male who was admitted to the hospital on January 26, with a history of small bowel obstruction, status post small bowel resection, and jejunostomy. The patient went to the operating room on January 26. He remains on mechanical ventilator. He is on volume assist control, rate 16, tidal volume 500, FiO2 35%, and PEEP of 5. Blood gases show a PaO2 of 125, pCO2 35, and pH is 7.42. The FiO2 was turned down from 35-30%. The patient's on saline at 25 mL an hour, amiodarone at 0.5 mg/m, Rodrigue-Synephrine, which is been recently discontinued, and TPN at 60 mL an hour. Propofol is also been weaned off. The patient is a DO NOT RESUSCITATE patient. Nonetheless, the patient will have a daily interruption of sedation, and a spontaneous breathing trial on a pressure support of 5 and CPAP of 5. The patient does continue on Zosyn. White count 17.4, hemoglobin 7.7, hematocrit 25, and platelet count 67,000. Sodium 139, potassium 3.7, chlorides 113, CO2 22, BUN 24, and creatinine 0.51. AST is 381. ALT is 425. Chest x-ray shows trace bilateral effusions. Progress note dated 02/01/2023. This is a 67-year-old male who was admitted to the hospital on January 26, with a history of small bowel obstruction, status post small bowel resection, and jejunostomy. The patient went to the operating room on January 26. He remains on mechanical ventilator. The patient is on the volume assist control, but will be placed on pressure support and CPAP, at 40%, and given a trial, of extubation. The patient continues on antibiotics, antifungals. We made sure with the family, that once the patient is extubated, he is not to be reintubated. The patient's getting TPN at 45 mL an hour, and saline at 1 25 mL an hour. Norepinephrine has been weaned off. The patient remains on heparin via weightbase protocol. In addition, the patient is on amiodarone at 0.5 mg/m. Propofol is off. Once extubated, and the NG tube will be discontinued as well. White count 17.6, hemoglobin 7.9, hematocrit 25.7, and platelet count 80,000. PO2 was 126, pCO2 was 37, and pH of 7.4. Sodium 138, potassium 4, chlorides 114, CO2 21, BUN 25, and creatinine 0.43. Chest x-ray shows a stable portable chest x-ray. Objective - Vital Signs Vital signs: Vital Signs Temp 97.7 F 02/01/23 08:00 Pulse 70 02/01/23 12:00 Resp 15 02/01/23 12:00 BP 110/74 02/01/23 12:00 Pulse Ox 98 02/01/23 12:00 FiO2 30 02/01/23 10:15 Intake & Output 01/31/23 02/01/23 02/01/23 18:59 06:59 18:59 Intake Total 2005.135 1930.593 855.136 Output Total 805 550 905 Balance 2636.215 8675.593 -49.864 Weight 79.5 kg 81.9 kg Intake: IV 1706 1533 768 Potassium Chloride 10 meq 200 In Water For Injection 1 100ml.bag @ 100 mls/hr IVPB Q1H [facility] Rx#: [id number] Pressure Bag (0.9 Sodium 6 33 18 Chloride) Sodium Chloride 0.9% 1, 1500 1500 750 000 ml @ 125 mls/hr IV . Q8H [facility] Rx#:[id number] Intake, IV Titration 299.135 397.593 87.136 Amount Amiodarone 450 mg In 243.338 Dextrose 5% in Water 250 ml @ 0.5 MG/MIN 16.667 mls/hr IV .Q15H [facility] Rx#: [id number] Amiodarone 450 mg In 145.003 Dextrose 5% in Water 250 ml @ 0.5 MG/MIN 16.667 mls/hr IV .Q15H [facility] Rx#: [id number] Heparin Sod,Pork in 0.45% 106.432 64.704 NaCl 25,000 unit In 0.45 % NaCl 1 250ml.bag @ 12 UNITS/KG/HR 7.68 mls/hr IV .Q24H [facility] Rx#: [id number] Norepinephrine 8 mg In 4.769 68.914 10.102 Sodium Chloride 0.9% 250 ml @ 0.03 MCG/KG/MIN 4. 615 mls/hr IV .Q24H [facility] Rx#:[id number] Phenylephrine 40 mg In 22.567 Sodium Chloride 0.9% 250 ml @ 0.5 MCG/KG/MIN 12. 287 mls/hr IV .[id number] [facility] Rx#:[id number] propofoL 1,000 mg In 28.461 77.244 12.330 Empty Bag 1 bag @ 15 MCG/ KG/MIN 5.348 mls/hr IV . [id number] [facility] Rx#:[id number] Output: Gastric Drainage 75 Urine 705 550 335 Stool 100 495 Other: Voiding Method Indwelling Catheter Indwelling Catheter Indwelling Catheter ABP, PAP, CO, CI - Last Documented Arterial Blood Pressure 96/68 - Exam No acute distress, off sedation, more awake, with an orally placed endotracheal tube. HEENT examination is grossly unremarkable. Neck supple. Full range of motion. No adenopathy thyromegaly or neck vein dist ention. Cardiovascular examination reveals regular rhythm rate. S1-S2 normal. No S3 or S4. No discernible murmur noted. Heart sounds are distant. Heart rate is 70 bpm. Lungs reveal scattered bilateral rhonchi. No wheezes or crackles. Breath sounds are equal bilaterally. Saturations are 98 %. Abdomen soft bowel sounds are heard. No masses or tenderness. Extremities are intact. No cyanosis clubbing or edema. Skin is without rash or lesion. Neurologic examination is brief but nonfocal. - Labs CBC & Chem 7: 02/01/23 04:08 02/01/23 04:08 Labs: Abnormal Lab Results - Last 24 Hours (Table) 01/31/23 01/31/23 01/31/23 Range/Units 10:40 17:50 19:08 WBC (3.8-10.6) k/uL RBC (4.30-5.90) m/uL Hgb (13.0-17.5) gm/dL Hct (39.0-53.0) % MCH (25.0-35.0) pg MCHC (31.0-37.0) g/dL RDW (11.5-15.5) % Plt Count (150-450) k/uL Neutrophils # (Manual) (1.3-7.7) k/uL Metamyelocytes # (Man) (0) k/uL Myelocytes # (Manual) (0) k/uL Nucleated RBCs (0-0) /100 WBC APTT 31.5 H (22.0-30.0) sec ABG pO2 (83-108) mmHg ABG O2 Saturation (94-97) % Chloride (98-107) mmol/L Carbon Dioxide (22-30) mmol/L BUN (9-20) mg/dL Creatinine (0.66-1.25) mg/dL Glucose (74-99) mg/dL POC Glucose (mg/dL) 140 H (70-110) mg/dL Calcium (8.4-10.2) mg/dL Procalcitonin 3.94 H (0.02-0.09) ng/mL 01/31/23 02/01/23 02/01/23 Range/Units 23:52 00:45 04:08 WBC (3.8-10.6) k/uL RBC (4.30-5.90) m/uL Hgb (13.0-17.5) gm/dL Hct (39.0-53.0) % MCH (25.0-35.0) pg MCHC (31.0-37.0) g/dL RDW (11.5-15.5) % Plt Count (150-450) k/uL Neutrophils # (Manual) (1.3-7.7) k/uL Metamyelocytes # (Man) (0) k/uL Myelocytes # (Manual) (0) k/uL Nucleated RBCs (0-0) /100 WBC APTT 31.9 H (22.0-30.0) sec ABG pO2 (83-108) mmHg ABG O2 Saturation (94-97) % Chloride 114 H (98-107) mmol/L Carbon Dioxide 21 L (22-30) mmol/L BUN 25 H (9-20) mg/dL Creatinine 0.43 L (0.66-1.25) mg/dL Glucose 141 H (74-99) mg/dL POC Glucose (mg/dL) 142 H (70-110) mg/dL Calcium 6.6 L (8.4-10.2) mg/dL Procalcitonin (0.02-0.09) ng/mL 02/01/23 02/01/23 02/01/23 Range/Units 04:08 06:19 06:21 WBC 17.6 H (3.8-10.6) k/uL RBC 3.18 L (4.30-5.90) m/uL Hgb 7.9 L (13.0-17.5) gm/dL Hct 25.7 L (39.0-53.0) % MCH 24.9 L (25.0-35.0) pg MCHC 30.8 L (31.0-37.0) g/dL RDW 20.8 H (11.5-15.5) % Plt Count 80 L (150-450) k/uL Neutrophils # (Manual) 15.30 H (1.3-7.7) k/uL Metamyelocytes # (Man) 0.53 H (0) k/uL Myelocytes # (Manual) 0.35 H (0) k/uL Nucleated RBCs 2 H (0-0) /100 WBC APTT 34.5 H (22.0-30.0) sec ABG pO2 126 H (83-108) mmHg ABG O2 Saturation 98.3 H (94-97) % Chloride (98-107) mmol/L Carbon Dioxide (22-30) mmol/L BUN (9-20) mg/dL Creatinine (0.66-1.25) mg/dL Glucose (74-99) mg/dL POC Glucose (mg/dL) (70-110) mg/dL Calcium (8.4-10.2) mg/dL Procalcitonin (0.02-0.09) ng/mL Microbiology - Last 24 Hours (Table) 01/26/23 05:50 Blood Culture - Final Blood 01/26/23 05:28 Blood Culture - Final Blood Assessment and Plan Assessment: Status post exploratory laparotomy with resection, and jejunostomy, postoperative day #6. Routine postoperative ventilator management. Status post intubation and mechanical ventilation on 01/26/2023, with anticipated extubation, 02/01/2023. Abdominal sepsis with septic shock, improved. Acute hypoxemic respiratory failure secondary to abdominal sepsis, and extensive bowel ischemia. Paroxysmal atrial fibrillation. Acute lactic acidosis secondary to sepsis. Benign essential hypertension. Ventral hernia. Acute kidney injury secondary to sepsis, hypertension, and acute tubular necrosis. Plan: Plan dated 01/31/2023. The patient's FiO2 was dropped from 35%, down to 30%. The patient remains on saline, amiodarone, and TPN at 60 mL an hour. Propofol has been discontinued. The patient will get a spontaneous breathing trial on pressure support of 5, and CPAP of 5. The patient is currently on Zosyn. Labs, x-rays, medications are reviewed. The patient is a DO NOT RESUSCITATE patient. We will clarify with the family, that should the patient be extubated, he will not be reintubated. We will continue to follow the patient and make recommendations along the way. Prognosis is certainly poor. Plan dated 02/01/2023. The patient will be extubated, today, and not be reintubated, should he develop respiratory failure. We confirmed that with the family. The patient's has been weaned off of norepinephrine, but continues on TPN, and heparin. The patient also continues on amiodarone. The patient continues on Zosyn and Eraxis. Labs, x-rays, and medications are reviewed. The patient is a DO NOT RESUSCITATE patient. Additional recommendations and suggestions are forthcoming. Prognosis is guarded. Time with Patient: Greater than 30
--- NOTE | 2023-02-01 13:00 | P.PN ---
Subjective Progress Note Date: 02/01/23 Principal diagnosis: Thrombocytopenia In follow-up today patient is alert, off of the ventilator. He has family at the bedside, he is very pleasant. Family denies seeing any bleeding or unexpected/unusual bruising. Hemoglobin stable at 7.9 today, platelets at 80,000. Objective - Vital Signs Vital signs: Vital Signs Temp 97.7 F 02/01/23 08:00 Pulse 70 02/01/23 12:00 Resp 15 02/01/23 12:00 BP 110/74 02/01/23 12:00 Pulse Ox 98 02/01/23 12:00 FiO2 30 02/01/23 10:15 Intake & Output 01/31/23 02/01/23 02/01/23 18:59 06:59 18:59 Intake Total 2005.135 1930.593 855.136 Output Total 805 550 905 Balance 5333.172 4681.593 -49.864 Weight 79.5 kg 81.9 kg Intake: IV 1706 1533 768 Potassium Chloride 10 meq 200 In Water For Injection 1 100ml.bag @ 100 mls/hr IVPB Q1H [facility] Rx#: [id number] Pressure Bag (0.9 Sodium 6 33 18 Chloride) Sodium Chloride 0.9% 1, 1500 1500 750 000 ml @ 125 mls/hr IV . Q8H [facility] Rx#:[id number] Intake, IV Titration 299.135 397.593 87.136 Amount Amiodarone 450 mg In 243.338 Dextrose 5% in Water 250 ml @ 0.5 MG/MIN 16.667 mls/hr IV .Q15H [facility] Rx#: [id number] Amiodarone 450 mg In 145.003 Dextrose 5% in Water 250 ml @ 0.5 MG/MIN 16.667 mls/hr IV .Q15H [facility] Rx#: [id number] Heparin Sod,Pork in 0.45% 106.432 64.704 NaCl 25,000 unit In 0.45 % NaCl 1 250ml.bag @ 12 UNITS/KG/HR 7.68 mls/hr IV .Q24H [facility] Rx#: [id number] Norepinephrine 8 mg In 4.769 68.914 10.102 Sodium Chloride 0.9% 250 ml @ 0.03 MCG/KG/MIN 4. 615 mls/hr IV .Q24H [facility] Rx#:[id number] Phenylephrine 40 mg In 22.567 Sodium Chloride 0.9% 250 ml @ 0.5 MCG/KG/MIN 12. 287 mls/hr IV .[id number] [facility] Rx#:[id number] propofoL 1,000 mg In 28.461 77.244 12.330 Empty Bag 1 bag @ 15 MCG/ KG/MIN 5.348 mls/hr IV . [id number] [facility] Rx#:[id number] Output: Gastric Drainage 75 Urine 705 550 335 Stool 100 495 Other: Voiding Method Indwelling Catheter Indwelling Catheter Indwelling Catheter ABP, PAP, CO, CI - Last Documented Arterial Blood Pressure 96/68 - Constitutional General appearance: Present: cooperative, no acute distress - EENT Eyes: Present: anicteric sclerae ENT: Present: hearing grossly normal - Respiratory Details: Respirations even and unlabored at rest - Cardiovascular Details: Irregular rhythm on telemetry - Integumentary Integumentary Comment(s): No unusual petechiae or ecchymoses Integumentary: Present: pale - Additional findings Additional findings: Urine in the Pedroza catheter collection device is donato in color, no gross blood noted, no blood visualized in any of his lines, no oozing of blood around catheter insertion site - Labs CBC & Chem 7: 02/01/23 04:08 02/01/23 04:08 Labs: Abnormal Lab Results - Last 24 Hours (Table) 01/31/23 01/31/23 01/31/23 Range/Units 10:40 17:50 19:08 WBC (3.8-10.6) k/uL RBC (4.30-5.90) m/uL Hgb (13.0-17.5) gm/dL Hct (39.0-53.0) % MCH (25.0-35.0) pg MCHC (31.0-37.0) g/dL RDW (11.5-15.5) % Plt Count (150-450) k/uL Neutrophils # (Manual) (1.3-7.7) k/uL Metamyelocytes # (Man) (0) k/uL Myelocytes # (Manual) (0) k/uL Nucleated RBCs (0-0) /100 WBC APTT 31.5 H (22.0-30.0) sec ABG pO2 (83-108) mmHg ABG O2 Saturation (94-97) % Chloride (98-107) mmol/L Carbon Dioxide (22-30) mmol/L BUN (9-20) mg/dL Creatinine (0.66-1.25) mg/dL Glucose (74-99) mg/dL POC Glucose (mg/dL) 140 H (70-110) mg/dL Calcium (8.4-10.2) mg/dL Procalcitonin 3.94 H (0.02-0.09) ng/mL 01/31/23 02/01/23 02/01/23 Range/Units 23:52 00:45 04:08 WBC (3.8-10.6) k/uL RBC (4.30-5.90) m/uL Hgb (13.0-17.5) gm/dL Hct (39.0-53.0) % MCH (25.0-35.0) pg MCHC (31.0-37.0) g/dL RDW (11.5-15.5) % Plt Count (150-450) k/uL Neutrophils # (Manual) (1.3-7.7) k/uL Metamyelocytes # (Man) (0) k/uL Myelocytes # (Manual) (0) k/uL Nucleated RBCs (0-0) /100 WBC APTT 31.9 H (22.0-30.0) sec ABG pO2 (83-108) mmHg ABG O2 Saturation (94-97) % Chloride 114 H (98-107) mmol/L Carbon Dioxide 21 L (22-30) mmol/L BUN 25 H (9-20) mg/dL Creatinine 0.43 L (0.66-1.25) mg/dL Glucose 141 H (74-99) mg/dL POC Glucose (mg/dL) 142 H (70-110) mg/dL Calcium 6.6 L (8.4-10.2) mg/dL Procalcitonin (0.02-0.09) ng/mL 02/01/23 02/01/23 02/01/23 Range/Units 04:08 06:19 06:21 WBC 17.6 H (3.8-10.6) k/uL RBC 3.18 L (4.30-5.90) m/uL Hgb 7.9 L (13.0-17.5) gm/dL Hct 25.7 L (39.0-53.0) % MCH 24.9 L (25.0-35.0) pg MCHC 30.8 L (31.0-37.0) g/dL RDW 20.8 H (11.5-15.5) % Plt Count 80 L (150-450) k/uL Neutrophils # (Manual) 15.30 H (1.3-7.7) k/uL Metamyelocytes # (Man) 0.53 H (0) k/uL Myelocytes # (Manual) 0.35 H (0) k/uL Nucleated RBCs 2 H (0-0) /100 WBC APTT 34.5 H (22.0-30.0) sec ABG pO2 126 H (83-108) mmHg ABG O2 Saturation 98.3 H (94-97) % Chloride (98-107) mmol/L Carbon Dioxide (22-30) mmol/L BUN (9-20) mg/dL Creatinine (0.66-1.25) mg/dL Glucose (74-99) mg/dL POC Glucose (mg/dL) (70-110) mg/dL Calcium (8.4-10.2) mg/dL Procalcitonin (0.02-0.09) ng/mL Microbiology - Last 24 Hours (Table) 01/26/23 05:50 Blood Culture - Final Blood 01/26/23 05:28 Blood Culture - Final Blood Assessment and Plan (1) Thrombocytopenia Current Visit: Yes Status: Acute Priority: High Code(s): D69.6 - THROMBOCYTOPENIA, UNSPECIFIED SNOMED Code(s): 142969525 (2) Acute blood loss anemia Current Visit: Yes Status: Acute Priority: High Code(s): D62 - ACUTE POSTHEMORRHAGIC ANEMIA SNOMED Code(s): 401544601 (3) Ischemic bowel disease Current Visit: Yes Status: Acute Priority: High Code(s): K55.9 - VASCULAR DISORDER OF INTESTINE, UNSPECIFIED SNOMED Code(s): 79592301 (4) Sepsis Current Visit: Yes Status: Acute Priority: High Code(s): A41.9 - SEPSIS, UNSPECIFIED ORGANISM SNOMED Code(s): 15424959 (5) S/P small bowel resection Current Visit: Yes Status: Acute Priority: High Code(s): Z90.49 - ACQUIRED ABSENCE OF OTHER SPECIFIED PARTS OF DIGESTIVE TRACT SNOMED Code(s): 270162462408411 Plan: Thrombocytopenia -Progressive from admit, today plt are stable and slightly improved to 80,000 -Secondary to sepsis, liver dysfunction, consumption from surgery and acute bleeding. As underlying conditions resolve, anticipate improvement in counts -DIC ruled out -Heparin drip started yesterday. No reported bleeding, on physical examination there were no findings of gross bleeding, oozing of blood from lines or unrealistic bruising. Anemia -Hemoglobin stable today at 7.9 Heparin drip recommended by Cardiology for atrial fibrillation. Reviewed Attending and Surgical notes From a Hematology standpoint patient is okay to be anticoagulated as long as platelets remain above 50,000 and there is no gross bleeding.
[2023-02-01 13:33] LABS: Glucose,Whole Blood 136 mg/dL (70-110)
--- NOTE | 2023-02-01 14:43 | P.PN ---
Subjective Progress Note Date: 02/01/23 Patient is a 67 -year-old male with history of high blood pressure, atrial fibrillation, diabetes mellitus type 2, obstructive uropathy, and long-standing ventral hernia who presented to the ER from his long term due to syncopal episode. In the ER he underwent extensive evaluation. On arrival was vital signs were remarkable for blood pressure 67/33 and a pulse of 60. Laboratory analysis was reviewed including a CBC, coagulation studies, CMP, liver function, lactic acid, and troponin which were remarkable for white blood cell count 15, hemoglobin 8.7, hematocrit 29.9, INR 1.6, carbon dioxide 14, anion gap 19, lactic acid 9.6. Influenza A/B/RSV/COVID-[address] abdomen and pelvis completed which showed small bowel ischemia versus obstruction, ascites, cholelithiasis. In the ER he was given 2 L normal saline. He remained hypotensive and was started on norepinephrine and Zosyn. Arrangements were made for admission to the ICU. He was seen by surgery, he was administered a dose of K Centra and underwent urgent exploratory laparotomy with small bowel resection and jejunostomy. The majority of the small bowel was resected with approximately 1 foot of jejunum that was viable, and duodenum was also viable. 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 Postoperatively he required 4 untis of pRBC. The night after surgery the patient's vasopressor requirements increased and he was subsequently started on phenylephrine and vasopressin. His cortisol was 16 which is not adequate for his state of shock and he was started on cortef. On 01/28 he went into A. fib with RVR necessitating an amiodarone drip. He vaso and phe nylephrine were able to be weaned off by the morning of 01/29. He struggled with sinus tachycardia on 01/29 and vasopressors were adjusted. 02/01 Patient was seen and examined. Extubated this morning. CBC shows WBC count of 17.6, Hg 7.9, Plt 80. Coag panel APTT 34.5. ABG pH 7.4, pCO2 37. BMP Cl 114, bicab 21, BUN 25, Cr 0.43, glucose 141, Ca 6.6. Phos 2.5. Mag 2.3. Amiodarone 0.5 mg/min. Antibiotics include Anidulafungin and Zosyn. Currently on TPN. Heparin drip at 21 units/kg/hr. Solucortef at 50 mg IV BID. Levophed discontinued at this time. NS at 125 cc/hr. CXR shows bibasilar opacities. Vital signs reviewed General: Ill appearing, mild distress, appears at stated age Cardiovascular: S1S2 reg, no murmur Lungs: Course bs bilateral, no rhonchi, no rales , no accessory muscle use Abdominal: soft, nontender to palpation, no guarding, no appreciable organomegaly, +ostomy, + midline dressing without soak through Ext: + gross muscle atrophy, no edema b/l lower extremities, no contractures Neuro: no FND Psych: Awake, can follow commands Ischemic colitis s/p small bowel resection with jejunostomy, will result in short gut syndrome requiring TPN Acute hypoxic respiratory failure Septic shock due to ischemic bowel Shock liver Cardiomyopathy with EF 35-40%, suspect sepsis induced Hypophosphatemia, Hypocalcemia Atrial fibrillation with RVR Anemia, due to acute blood loss s/p 4 units pRBC Coagulopathy Thrombocytopenia Resolved: Hypophosphatemia, Lactic acidosis, OLE Chronic: Hypertension, Cirrhosis, Constipation, Gastric ulcer, Encephalopathy Based on my assessment of this patient, this patient meets a high complexity level of care. Patient has an acute diagnosis of septic shock secondary to ischemic colitis s/p small bowel resection with jejunostomy complicated with ischemic cardiomyopathy and acute blood loss anemia requring 4 unit PRBC that poses a threat to life or bodily function. Ischemic colitis: s/p small bowel resection with jejunostomy 01/26. 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 Protonix 40 mg IV BID. Continue Zosyn. Acute hypoxic respiratory failure: CXR as above. Vent weaning trials. Septic shock due to ischemic bowel: Blood Cx negative. Sputum Cx vinay albicans. Currently on Zosyn (D7) and Anidulafungin (D3). Continue to wean pres sors (Levophed and Solucortef). ID on board. Shock liver: Trend AST/ALT Cardiomyopathy with EF 35-40%, suspect sepsis induced Hypocalcemia: On TPN. Hypophosphatemia resolved. Check ionized Ca. Atrial fibrillation with RVR: Amiodarone. Metoprolol on hold due to hypotension. Heparin drip. Cardiology on board. Anemia, due to acute blood loss s/p 4 units pRBC: Stable. Transfuse if Hg < 7.0. Hematology recommends anticoagulation as long his platelets remained greater than 50,000 and there is no gross bleeding. Coagulopathy: APTT montoring while on Heparin drip. Thrombocytopenia: Continue to monitor while on Heparin. Heparin drip for DVT prophylaxis. NO CODE. I have reviewed the following risk consultant notes: Surgery, Pulmonology note, Hematology, Cardiology note reviewed. I have reviewed the results of the following tests: CBC, Coag panel, ABG, BMP, Phos, Mag. I have ordered the following tests: Agree with CBC, BMP, Phos, Mag. Ionized Ca. I have discussed the care of this patient with the following independent historian: I have independently interpreted the following test below: CXR as above. I have discussed the management of this patient with the following physician: This patient has a high risk of morbidity due to the following reasons: Patient is currently on heparin drip that requires intensive monitoring for APTT for toxicity. Objective - Vital Signs Vital signs: Vital Signs Temp 97.7 F 02/01/23 08:00 Pulse 66 02/01/23 08:00 Resp 17 02/01/23 08:00 BP 101/69 02/01/23 08:00 Pulse Ox 99 02/01/23 08:00 FiO2 30 02/01/23 08:00 Intake & Output 01/31/23 02/01/23 02/01/23 18:59 06:59 18:59 Intake Total 2005.135 1930.593 320.704 Output Total 805 550 690 Balance 0430.670 2425.593 -369.296 Weight 79.5 kg 81.9 kg Intake: IV 1706 1533 256 Potassium Chloride 10 meq 200 In Water For Injection 1 100ml.bag @ 100 mls/hr IVPB Q1H [facility] Rx#: [id number] Pressure Bag (0.9 Sodium 6 33 6 Chloride) Sodium Chloride 0.9% 1, 1500 1500 250 000 ml @ 125 mls/hr IV . Q8H [facility] Rx#:[id number] Intake, IV Titration 299.135 397.593 64.704 Amount Amiodarone 450 mg In 243.338 Dextrose 5% in Water 250 ml @ 0.5 MG/MIN 16.667 mls/hr IV .Q15H [facility] Rx#: [id number] Amiodarone 450 mg In 145.003 Dextrose 5% in Water 250 ml @ 0.5 MG/MIN 16.667 mls/hr IV .Q15H [facility] Rx#: [id number] Heparin Sod,Pork in 0.45% 106.432 64.704 NaCl 25,000 unit In 0.45 % NaCl 1 250ml.bag @ 12 UNITS/KG/HR 7.68 mls/hr IV .Q24H [facility] Rx#: [id number] Norepinephrine 8 mg In 4.769 68.914 Sodium Chloride 0.9% 250 ml @ 0.03 MCG/KG/MIN 4. 615 mls/hr IV .Q24H [facility] Rx#:[id number] Phenylephrine 40 mg In 22.567 Sodium Chloride 0.9% 250 ml @ 0.5 MCG/KG/MIN 12. 287 mls/hr IV .[id number] [facility] Rx#:[id number] propofoL 1,000 mg In 28.461 77.244 Empty Bag 1 bag @ 15 MCG/ KG/MIN 5.348 mls/hr IV . [id number] [facility] Rx#:[id number] Output: Gastric Drainage 75 Urine 705 550 120 Stool 100 495 Other: Voiding Method Indwelling Catheter Indwelling Catheter ABP, PAP, CO, CI - Last Documented Arterial Blood Pressure 124/59 - Labs CBC & Chem 7: 02/01/23 04:08 02/01/23 04:08 Labs: Abnormal Lab Results - Last 24 Hours (Table) 01/31/23 01/31/23 01/31/23 Range/Units 04:45 04:45 10:40 WBC (3.8-10.6) k/uL RBC (4.30-5.90) m/uL Hgb (13.0-17.5) gm/dL Hct (39.0-53.0) % MCH (25.0-35.0) pg MCHC (31.0-37.0) g/dL RDW (11.5-15.5) % Plt Count (150-450) k/uL Neutrophils # (Manual) (1.3-7.7) k/uL Metamyelocytes # (Man) (0) k/uL Myelocytes # (Manual) (0) k/uL Nucleated RBCs (0-0) /100 WBC APTT (22.0-30.0) sec ABG pO2 (83-108) mmHg ABG O2 Saturation (94-97) % Chloride (98-107) mmol/L Carbon Dioxide (22-30) mmol/L BUN (9-20) mg/dL Creatinine (0.66-1.25) mg/dL Glucose (74-99) mg/dL POC Glucose (mg/dL) (70-110) mg/dL Calcium (8.4-10.2) mg/dL Total Protein (PEP) 3.6 L (6.2-8.2) d/dL Albumin (PEP) 1.9 L (3.8-4.9) d/dL Vitamin B12 >1800.0 H (200.0-944.0) pg/mL Procalcitonin 3.94 H (0.02-0.09) ng/mL 01/31/23 01/31/23 01/31/23 Range/Units 11:56 17:50 19:08 WBC (3.8-10.6) k/uL RBC (4.30-5.90) m/uL Hgb (13.0-17.5) gm/dL Hct (39.0-53.0) % MCH (25.0-35.0) pg MCHC (31.0-37.0) g/dL RDW (11.5-15.5) % Plt Count (150-450) k/uL Neutrophils # (Manual) (1.3-7.7) k/uL Metamyelocytes # (Man) (0) k/uL Myelocytes # (Manual) (0) k/uL Nucleated RBCs (0-0) /100 WBC APTT 31.5 H (22.0-30.0) sec ABG pO2 (83-108) mmHg ABG O2 Saturation (94-97) % Chloride (98-107) mmol/L Carbon Dioxide (22-30) mmol/L BUN (9-20) mg/dL Creatinine (0.66-1.25) mg/dL Glucose (74-99) mg/dL POC Glucose (mg/dL) 121 H 140 H (70-110) mg/dL Calcium (8.4-10.2) mg/dL Total Protein (PEP) (6.2-8.2) d/dL Albumin (PEP) (3.8-4.9) d/dL Vitamin B12 (200.0-944.0) pg/mL Procalcitonin (0.02-0.09) ng/mL 01/31/23 02/01/23 02/01/23 Range/Units 23:52 00:45 04:08 WBC (3.8-10.6) k/uL RBC (4.30-5.90) m/uL Hgb (13.0-17.5) gm/dL Hct (39.0-53.0) % MCH (25.0-35.0) pg MCHC (31.0-37.0) g/dL RDW (11.5-15.5) % Plt Count (150-450) k/uL Neutrophils # (Manual) (1.3-7.7) k/uL Metamyelocytes # (Man) (0) k/uL Myelocytes # (Manual) (0) k/uL Nucleated RBCs (0-0) /100 WBC APTT 31.9 H (22.0-30.0) sec ABG pO2 (83-108) mmHg ABG O2 Saturation (94-97) % Chloride 114 H (98-107) mmol/L Carbon Dioxide 21 L (22-30) mmol/L BUN 25 H (9-20) mg/dL Creatinine 0.43 L (0.66-1.25) mg/dL Glucose 141 H (74-99) mg/dL POC Glucose (mg/dL) 142 H (70-110) mg/dL Calcium 6.6 L (8.4-10.2) mg/dL Total Protein (PEP) (6.2-8.2) d/dL Albumin (PEP) (3.8-4.9) d/dL Vitamin B12 (200.0-944.0) pg/mL Procalcitonin (0.02-0.09) ng/mL 02/01/23 02/01/23 02/01/23 Range/Units 04:08 06:19 06:21 WBC 17.6 H (3.8-10.6) k/uL RBC 3.18 L (4.30-5.90) m/uL Hgb 7.9 L (13.0-17.5) gm/dL Hct 25.7 L (39.0-53.0) % MCH 24.9 L (25.0-35.0) pg MCHC 30.8 L (31.0-37.0) g/dL RDW 20.8 H (11.5-15.5) % Plt Count 80 L (150-450) k/uL Neutrophils # (Manual) 15.30 H (1.3-7.7) k/uL Metamyelocytes # (Man) 0.53 H (0) k/uL Myelocytes # (Manual) 0.35 H (0) k/uL Nucleated RBCs 2 H (0-0) /100 WBC APTT 34.5 H (22.0-30.0) sec ABG pO2 126 H (83-108) mmHg ABG O2 Saturation 98.3 H (94-97) % Chloride (98-107) mmol/L Carbon Dioxide (22-30) mmol/L BUN (9-20) mg/dL Creatinine (0.66-1.25) mg/dL Glucose (74-99) mg/dL POC Glucose (mg/dL) (70-110) mg/dL Calcium (8.4-10.2) mg/dL Total Protein (PEP) (6.2-8.2) d/dL Albumin (PEP) (3.8-4.9) d/dL Vitamin B12 (200.0-944.0) pg/mL Procalcitonin (0.02-0.09) ng/mL Microbiology - Last 24 Hours (Table) 01/26/23 05:50 Blood Culture - Final Blood 01/26/23 05:28 Blood Culture - Final Blood
[2023-02-01] MEDS: HEPARIN SOD,PORK IN 0.45% NACL 25,000 UNIT in 0.45% NACL 1 250ML.BAG IV SCH (14:45)
[2023-02-01] MEDS: FAT EMULSION 20% 250 ML in EMPTY BAG 1 BAG IV SCH (16:31)
[2023-02-01 17:31] LABS: Glucose,Whole Blood 95 mg/dL (70-110)
[2023-02-01] MEDS: MVI, ADULT NO.4 WITH VIT K 10 ML, TRACE (CONC-1ML/DOSE) 1 ML, SODIUM ACETATE 30 MEQ, CA... IV SCH ×7 (18:48)
[2023-02-01] MEDS: NOREPINEPHRINE 8 MG in SODIUM CHLORIDE 0.9% 250 ML IV SCH (18:48)
[2023-02-01] MEDS: HYDROmorphone 1 MG/ML 1 ML SYRINGE IVP PRN ×2 (18:52→22:29)
[2023-02-01] MEDS: ANIDULAFUNGIN 100 MG in SODIUM CHLORIDE 0.9% 100 ML IVPB SCH (18:52)
[2023-02-01 19:20] LABS: Gamma Globulin 0.53 d/dL (0.70-1.50)
--- NOTE | 2023-02-01 20:25 | P.PN ---
Subjective Progress Note Date: 02/01/23 Principal diagnosis: Sepsis/ischemic small intestine Patient is a 67-year-old male with a past medical history negative for atrial fibrillation diabetes mellitus hypertension PE seizure disorder and dementia patient was brought into the hospital for evaluation of a syncopal episode , patient did have a CT abdominal pelvis suggestive of small bowel ischemia status post laparotomy patient was noticed to have ischemic small bowel intestine intra-abdominal adhesion requiring small bowel resection and jejunostomy and admission to the ICU. On today's evaluation of that is 02/01/2023, the patient continue to be afebrile, the patient is hemodynamically stable , pt has been extubated and is breathing comfortable on 2l nasal canula oxygen, no vomiting or anyother changes reported Patient white count is down to 17.6, creatinine is 0.43, blood culture so far negative , sputum vinay Objective - Vital Signs Vital signs: Vital Signs Temp 97.7 F 02/01/23 08:00 Pulse 70 02/01/23 12:00 Resp 15 02/01/23 12:00 BP 110/74 02/01/23 12:00 Pulse Ox 98 02/01/23 12:00 FiO2 30 02/01/23 10:15 Intake & Output 01/31/23 02/01/23 02/01/23 18:59 06:59 18:59 Intake Total 2005.135 1930.593 855.136 Output Total 805 550 905 Balance 4026.164 7596.593 -49.864 Weight 79.5 kg 81.9 kg Intake: IV 1706 1533 768 Potassium Chloride 10 meq 200 In Water For Injection 1 100ml.bag @ 100 mls/hr IVPB Q1H [facility] Rx#: [id number] Pressure Bag (0.9 Sodium 6 33 18 Chloride) Sodium Chloride 0.9% 1, 1500 1500 750 000 ml @ 125 mls/hr IV . Q8H [facility] Rx#:[id number] Intake, IV Titration 299.135 397.593 87.136 Amount Amiodarone 450 mg In 243.338 Dextrose 5% in Water 250 ml @ 0.5 MG/MIN 16.667 mls/hr IV .Q15H [facility] Rx#: [id number] Amiodarone 450 mg In 145.003 Dextrose 5% in Water 250 ml @ 0.5 MG/MIN 16.667 mls/hr IV .Q15H [facility] Rx#: [id number] Heparin Sod,Pork in 0.45% 106.432 64.704 NaCl 25,000 unit In 0.45 % NaCl 1 250ml.bag @ 12 UNITS/KG/HR 7.68 mls/hr IV .Q24H [facility] Rx#: [id number] Norepinephrine 8 mg In 4.769 68.914 10.102 Sodium Chloride 0.9% 250 ml @ 0.03 MCG/KG/MIN 4. 615 mls/hr IV .Q24H [facility] Rx#:[id number] Phenylephrine 40 mg In 22.567 Sodium Chloride 0.9% 250 ml @ 0.5 MCG/KG/MIN 12. 287 mls/hr IV .[id number] [facility] Rx#:[id number] propofoL 1,000 mg In 28.461 77.244 12.330 Empty Bag 1 bag @ 15 MCG/ KG/MIN 5.348 mls/hr IV . [id number] [facility] Rx#:[id number] Output: Gastric Drainage 75 Urine 705 550 335 Stool 100 495 Other: Voiding Method Indwelling Catheter Indwelling Catheter Indwelling Catheter ABP, PAP, CO, CI - Last Documented Arterial Blood Pressure 96/68 - Exam GENERAL DESCRIPTION: An elderly male lying in bed in no distress RESPIRATORY SYSTEM: Unlabored breathing , decreased breath sounds at bases HEART: S1 S2 regular rate and rhythm , ABDOMEN: Soft , midline incision is intact EXTREMITIES: No edema feet - Labs CBC & Chem 7: 02/01/23 04:08 02/01/23 04:08 Labs: Abnormal Lab Results - Last 24 Hours (Table) 01/31/23 01/31/23 01/31/23 Range/Units 10:40 17:50 19:08 WBC (3.8-10.6) k/uL RBC (4.30-5.90) m/uL Hgb (13.0-17.5) gm/dL Hct (39.0-53.0) % MCH (25.0-35.0) pg MCHC (31.0-37.0) g/dL RDW (11.5-15.5) % Plt Count (150-450) k/uL Neutrophils # (Manual) (1.3-7.7) k/uL Metamyelocytes # (Man) (0) k/uL Myelocytes # (Manual) (0) k/uL Nucleated RBCs (0-0) /100 WBC APTT 31.5 H (22.0-30.0) sec ABG pO2 (83-108) mmHg ABG O2 Saturation (94-97) % Chloride (98-107) mmol/L Carbon Dioxide (22-30) mmol/L BUN (9-20) mg/dL Creatinine (0.66-1.25) mg/dL Glucose (74-99) mg/dL POC Glucose (mg/dL) 140 H (70-110) mg/dL Calcium (8.4-10.2) mg/dL Procalcitonin 3.94 H (0.02-0.09) ng/mL 01/31/23 02/01/23 02/01/23 Range/Units 23:52 00:45 04:08 WBC (3.8-10.6) k/uL RBC (4.30-5.90) m/uL Hgb (13.0-17.5) gm/dL Hct (39.0-53.0) % MCH (25.0-35.0) pg MCHC (31.0-37.0) g/dL RDW (11.5-15.5) % Plt Count (150-450) k/uL Neutrophils # (Manual) (1.3-7.7) k/uL Metamyelocytes # (Man) (0) k/uL Myelocytes # (Manual) (0) k/uL Nucleated RBCs (0-0) /100 WBC APTT 31.9 H (22.0-30.0) sec ABG pO2 (83-108) mmHg ABG O2 Saturation (94-97) % Chloride 114 H (98-107) mmol/L Carbon Dioxide 21 L (22-30) mmol/L BUN 25 H (9-20) mg/dL Creatinine 0.43 L (0.66-1.25) mg/dL Glucose 141 H (74-99) mg/dL POC Glucose (mg/dL) 142 H (70-110) mg/dL Calcium 6.6 L (8.4-10.2) mg/dL Procalcitonin (0.02-0.09) ng/mL 09/26/23 09/26/23 09/26/23 Range/Units 04:08 06:19 06:21 WBC 17.6 H (3.8-10.6) k/uL RBC 3.18 L (4.30-5.90) m/uL Hgb 7.9 L (13.0-17.5) gm/dL Hct 25.7 L (39.0-53.0) % MCH 24.9 L (25.0-35.0) pg MCHC 30.8 L (31.0-37.0) g/dL RDW 20.8 H (11.5-15.5) % Plt Count 80 L (150-450) k/uL Neutrophils # (Manual) 15.30 H (1.3-7.7) k/uL Metamyelocytes # (Man) 0.53 H (0) k/uL Myelocytes # (Manual) 0.35 H (0) k/uL Nucleated RBCs 2 H (0-0) /100 WBC APTT 34.5 H (22.0-30.0) sec ABG pO2 126 H (83-108) mmHg ABG O2 Saturation 98.3 H (94-97) % Chloride (98-107) mmol/L Carbon Dioxide (22-30) mmol/L BUN (9-20) mg/dL Creatinine (0.66-1.25) mg/dL Glucose (74-99) mg/dL POC Glucose (mg/dL) (70-110) mg/dL Calcium (8.4-10.2) mg/dL Procalcitonin (0.02-0.09) ng/mL Microbiology - Last 24 Hours (Table) 01/26/23 05:50 Blood Culture - Final Blood 01/26/23 05:28 Blood Culture - Final Blood Assessment and Plan (1) Ischemic bowel disease Current Visit: Yes Status: Acute Priority: High Code(s): K55.9 - VASCULAR DISORDER OF INTESTINE, UNSPECIFIED SNOMED Code(s): 62754918 (2) Sepsis Current Visit: Yes Status: Acute Priority: High Code(s): A41.9 - SEPSIS, UNSPECIFIED ORGANISM SNOMED Code(s): 11323634 Plan: 1patient present to hospital with sepsis/septic shock in this patient with hypotension fever elevated white count tachycardia source is abdominal pain in this patient noticed to have small bowel ischemia s/p laparotomy with small bowel resection and jejunostomy, we will need to cover for the enteric gram- negative the likely pathogen for this episode of sepsis/septic shock. 2patient afebrile , leukocytosis likely related to oropharyngeal candidiasis, with white count trending down with the addition of Eraxis which will be continued 3-patient to continue with Zosyn 3.7 g every 8 hours as well and monitor clinical course closely sister at the bedside questions were answered Dictation was produced using [employer] dictation software. please excuse any grammatical, word or spelling errors. Time with Patient: Less than 30
[2023-02-02 00:10] LABS: Glucose,Whole Blood 126 mg/dL (70-110)
[2023-02-02] MEDS: INSULIN ASPART (NovoLOG) 100 UNIT/ML VIAL SQ SCH ×4 (00:10→19:56)
[2023-02-02] MEDS: HYDROmorphone 1 MG/ML 1 ML SYRINGE IVP PRN ×5 (03:02→20:07)
[2023-02-02] MEDS: AMIODARONE 450 MG in DEXTROSE 5% IN WATER 250 ML IV SCH ×4 (03:24→20:07)
[2023-02-02 04:48] LABS: Anisocytosis Moderate; HCT 26.2 % (39.0-53.0); HGB 8.3 gm/dL (13.0-17.5); Hypochromasia Marked; MCH 25.6 pg (25.0-35.0); MCHC 31.6 g/dL (31.0-37.0); MCV 81.1 fL (80.0-100.0); Mean Platelet Volume 11.8; Microcytosis Slight; Poikilocytosis Slight; RBC 3.23 m/uL (4.30-5.90); RDW 21.2 % (11.5-15.5)
[2023-02-02 05:13] LABS: African American GFR (CKD) >90 (>60 ml/min/1.73 sqM); Anion Gap 2 mmol/L; Blood Urea Nitrogen 21 mg/dL (9-20); Calcium 6.7 mg/dL (8.4-10.2); Carbon Dioxide 22 mmol/L (22-30); Chloride 116 mmol/L (98-107); Glucose 128 mg/dL (74-99); Magnesium 2.1 mg/dL (1.6-2.3); Non-African American GFR(CKD) >90 (>60 ml/min/1.73 sqM); Phosphorus 2.6 mg/dL (2.5-4.5); Potassium 4.1 mmol/L (3.5-5.1); Sodium 140 mmol/L (137-145)
[2023-02-02] MEDS: ARTIFICIAL TEARS-HYPROMELLOSE DROPS 15 ML BTL RIGHT EYE SCH ×2 (05:23→21:32)
[2023-02-02 05:27] LABS: Platelet Count 78 k/uL (150-450)
[2023-02-02 05:54] LABS: Band Neutrophils % 6 %; Eosinophils # (M) 0.24 k/uL (0-0.7); Lymphocytes # (M) 0.48 k/uL (1.0-4.8); Monocytes # (M) 0.24 k/uL (0-1.0); Neutrophils % (M) 92 %; Nucleated Red Blood Cells 2 /100 WBC (0-0); Total Cells Counted 200; WBC 24.1 k/uL (3.8-10.6)
[2023-02-02 05:59] LABS: Polychromasia Present
[2023-02-02 06:02] LABS: Glucose,Whole Blood 129 mg/dL (70-110)
[2023-02-02] MEDS: PIPERACILLIN-TAZOBACTAM 3.375 GM in SODIUM CHLORIDE 0.9% 100 ML IVPB SCH ×3 (06:19→21:28)
[2023-02-02] MEDS: HEPARIN SOD,PORK IN 0.45% NACL 25,000 UNIT in 0.45% NACL 1 250ML.BAG IV SCH ×2 (07:11→21:28)
--- NOTE | 2023-02-02 07:27 | XR ---
EXAMINATION TYPE: XR chest 1V portable DATE OF EXAM: 02/02/2023 COMPARISON: 02/01/2023 INDICATION: Post extubation, pleural effusion TECHNIQUE: Single frontal view of the chest is obtained. FINDINGS: The heart size is normal. The pulmonary vasculature is normal. Bibasilar infiltrates remain present. There is silhouetting the diaphragms to correlate for small to moderate bilateral pleural effusions. Endotracheal tube and nasogastric tube is been removed. IMPRESSION: 1. Persistent bilateral pleural effusions. Some left lower lobe infiltrate may be present. Continued follow-up is recommended
[2023-02-02] MEDS ORDERED: CALCIUM GLUCONATE IN NACL 1 GM in SALINE 1 100ML.BAG IVPB ONE (08:00)
[2023-02-02] MEDS: PANTOPRAZOLE 40 MG/10 ML VIAL IVP SCH ×2 (08:28→20:07)
--- NOTE | 2023-02-02 09:41 | P.PN ---
Subjective Progress Note Date: 02/02/23 The patient is a 67-year-old male who is demented to the hospital with abdominal discomfort. 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 The patient developed postoperative atrial fibrillation and therefore cardiology was consulted. He was started on amiodaro ne drip and subsequently converted to sinus mechanism. Postoperative complications include acute hypoxic respiratory failure and septic shock. The patient remains ventilated in the ICU. The patient was extubated yesterday. Patient was interviewed and examined resting comfortably in bed. He reports having abdominal discomfort. He denies any chest pain. Nursing staff states the patient is in and out of atrial fibrillation since extubation yesterday, with heart rates ranging from 70-140. GENERAL: Ill-appearing, well-nourished and in no acute distress. NECK: Supple without JVD or thyromegaly. LUNGS: Breath sounds coarse to auscultation bilaterally. Respiration equal and unlabored. Rhonchi throughout HEART: Regular rate and rhythm without murmurs, rubs or gallops. S1 and S2 heard. EXTREMITIES: Normal range of motion, mild edema. No clubbing or cyanosis. Peripheral pulses intact and strong. TELEMETRY: Atrial fibrillation with heart rates in the low 100s IMPRESSION: Atrial fibrillation with RVR, currently in sinus rhythm Acute ischemic bowel, status post resection Thrombocytopenia Anemia, blood loss secondary to surgery PLAN: Continue amiodarone drip until the patient is able to take parental medications Patient will also need to resume anticoagulation. Consider Lovenox. Aggressive pulmonary hygiene Further recommendations to be based on clinical course I am dictating on behalf of Dr Jerson Serrano's history/physical and assessment/plan. Objective - Vital Signs Vital signs: Vital Signs Temp 98.6 F 02/02/23 08:00 Pulse 129 H 02/02/23 08:00 Resp 18 02/02/23 08:00 BP 130/94 02/02/23 08:00 Pulse Ox 96 02/02/23 08:00 FiO2 30 02/01/23 10:15 Intake & Output 02/01/23 02/02/23 02/02/23 18:59 06:59 18:59 Intake Total 2818.500 2834.736 470.768 Output Total 1440 1190 180 Balance 5226.378 5898.736 290.768 Weight 87 kg Intake: IV 1586 2493 340 Anidulafungin 100 mg In 100 Sodium Chloride 0.9% 100 ml @ 84 mls/hr IVPB Q24H [facility] Rx#:[id number] Fat Emulsion 20% 250 ml 168 In Empty Bag 1 bag @ 21 mls/hr IV TuFr [facility] Rx#: [id number] Mvi, Adult No.4 with Vit 495 90 K 10 ml Trace (Conc-1Ml/ Dose) 1 ml Sodium Acetate 30 meq Calcium Gluconate 1.25 gm Potassium Acetate 40 meq Potassium Phosphate 24 mmol In Amino Acid 5%-D15w 1,000 ml @ 45 mls/hr IV . [id number] [facility] Rx#:[id number] Piperacillin-Tazobactam 3 100 200 100 .375 gm In Sodium Chloride 0.9% 100 ml @ 25 mls/hr IVPB Q8H [facility] Rx#: [id number] Pressure Bag (0.9 Sodium 36 30 Chloride) Sodium Chloride 0.9% 1, 1450 1500 150 000 ml @ 125 mls/hr IV . Q8H [facility] Rx#:[id number] Intake, IV Titration 1232.500 341.736 130.768 Amount Amiodarone 450 mg In 222.504 Dextrose 5% in Water 250 ml @ 0.5 MG/MIN 16.667 mls/hr IV .Q15H [facility] Rx#: [id number] Heparin Sod,Pork in 0.45% 143.568 119.232 130.768 NaCl 25,000 unit In 0.45 % NaCl 1 250ml.bag @ 12 UNITS/KG/HR 7.68 mls/hr IV .Q24H [facility] Rx#: [id number] Mvi, Adult No.4 with Vit 1066.5 K 10 ml Trace (Conc-1Ml/ Dose) 1 ml Sodium Acetate 30 meq Calcium Gluconate 1.25 gm Potassium Acetate 40 meq Potassium Phosphate 24 mmol In Amino Acid 5%-D15w 1,000 ml @ 45 mls/hr IV . [id number] [facility] Rx#:[id number] Norepinephrine 8 mg In 10.102 Sodium Chloride 0.9% 250 ml @ 0.03 MCG/KG/MIN 4. 615 mls/hr IV .Q24H [facility] Rx#:[id number] propofoL 1,000 mg In 12.330 Empty Bag 1 bag @ 15 MCG/ KG/MIN 5.348 mls/hr IV . [id number] [facility] Rx#:[id number] Output: Gastric Drainage 75 50 Urine 745 690 130 Stool 620 500 Other: Voiding Method Indwelling Catheter Indwelling Catheter Indwelling Catheter ABP, PAP, CO, CI - Last Documented Arterial Blood Pressure 112/78 - Labs CBC & Chem 7: 02/02/23 04:35 02/02/23 04:35 Labs: Abnormal Lab Results - Last 24 Hours (Table) 01/31/23 02/01/23 02/01/23 Range/Units 04:45 13:30 13:31 WBC (3.8-10.6) k/uL RBC (4.30-5.90) m/uL Hgb (13.0-17.5) gm/dL Hct (39.0-53.0) % RDW (11.5-15.5) % Plt Count (150-450) k/uL Neutrophils # (Manual) (1.3-7.7) k/uL Lymphocytes # (Manual) (1.0-4.8) k/uL Nucleated RBCs (0-0) /100 WBC APTT 43.4 H (22.0-30.0) sec Chloride (98-107) mmol/L BUN (9-20) mg/dL Creatinine (0.66-1.25) mg/dL Glucose (74-99) mg/dL POC Glucose (mg/dL) 136 H (70-110) mg/dL Calcium (8.4-10.2) mg/dL Ionized Calcium Paula (4.5-5.3) mg/dL Shnyy-3-Tsveieatf 0.46 H (0.10-0.40) d/dL Etzee-3-Hvqgybitz 0.59 L (0.60-1.00) d/dL Beta Globulins 0.48 L (0.60-1.30) d/dL Gamma Globulins 0.53 L (0.70-1.50) d/dL 02/01/23 02/02/23 02/02/23 Range/Units 22:14 00:08 04:35 WBC (3.8-10.6) k/uL RBC (4.30-5.90) m/uL Hgb (13.0-17.5) gm/dL Hct (39.0-53.0) % RDW (11.5-15.5) % Plt Count (150-450) k/uL Neutrophils # (Manual) (1.3-7.7) k/uL Lymphocytes # (Manual) (1.0-4.8) k/uL Nucleated RBCs (0-0) /100 WBC APTT 38.5 H (22.0-30.0) sec Chloride (98-107) mmol/L BUN (9-20) mg/dL Creatinine (0.66-1.25) mg/dL Glucose (74-99) mg/dL POC Glucose (mg/dL) 126 H (70-110) mg/dL Calcium (8.4-10.2) mg/dL Ionized Calcium Paula 4.4 L (4.5-5.3) mg/dL Nzucj-8-Debtkxrmx (0.10-0.40) d/dL Aujyf-5-Vrxxuhrew (0.60-1.00) d/dL Beta Globulins (0.60-1.30) d/dL Gamma Globulins (0.70-1.50) d/dL 02/02/23 02/02/23 02/02/23 Range/Units 04:35 04:35 04:35 WBC 24.1 H (3.8-10.6) k/uL RBC 3.23 L (4.30-5.90) m/uL Hgb 8.3 L (13.0-17.5) gm/dL Hct 26.2 L (39.0-53.0) % RDW 21.2 H (11.5-15.5) % Plt Count 78 L (150-450) k/uL Neutrophils # (Manual) 23.60 H (1.3-7.7) k/uL Lymphocytes # (Manual) 0.48 L (1.0-4.8) k/uL Nucleated RBCs 2 H (0-0) /100 WBC APTT 47.9 H (22.0-30.0) sec Chloride 116 H (98-107) mmol/L BUN 21 H (9-20) mg/dL Creatinine 0.41 L (0.66-1.25) mg/dL Glucose 128 H (74-99) mg/dL POC Glucose (mg/dL) (70-110) mg/dL Calcium 6.7 L (8.4-10.2) mg/dL Ionized Calcium Paula (4.5-5.3) mg/dL Ltlcp-9-Jlyfyybkj (0.10-0.40) d/dL Zscvb-2-Pfakxybki (0.60-1.00) d/dL Beta Globulins (0.60-1.30) d/dL Gamma Globulins (0.70-1.50) d/dL 02/02/23 Range/Units 06:01 WBC (3.8-10.6) k/uL RBC (4.30-5.90) m/uL Hgb (13.0-17.5) gm/dL Hct (39.0-53.0) % RDW (11.5-15.5) % Plt Count (150-450) k/uL Neutrophils # (Manual) (1.3-7.7) k/uL Lymphocytes # (Manual) (1.0-4.8) k/uL Nucleated RBCs (0-0) /100 WBC APTT (22.0-30.0) sec Chloride (98-107) mmol/L BUN (9-20) mg/dL Creatinine (0.66-1.25) mg/dL Glucose (74-99) mg/dL POC Glucose (mg/dL) 129 H (70-110) mg/dL Calcium (8.4-10.2) mg/dL Ionized Calcium Paula (4.5-5.3) mg/dL Drqiq-8-Wtqkheril (0.10-0.40) d/dL Emngi-1-Ylbiddqvp (0.60-1.00) d/dL Beta Globulins (0.60-1.30) d/dL Gamma Globulins (0.70-1.50) d/dL
--- NOTE | 2023-02-02 11:42 | P.PN ---
Subjective Progress Note Date: 02/02/23 CHIEF COMPLAINT: Abdominal pain HISTORY OF PRESENT ILLNESS: Patient is postop day #7 status post exploratory laparotomy with small bowel resection and jejunostomy for ischemic small intestine and intra-abdominal adhesions. Patient was extubated yesterday. He does report abdominal pain. He does rated 10 out of 10 per nursing staff. He does have underlying anxiety. No nausea or vomiting noted. Afebrile. Tachycardic. WBC is up from 17 to 24.1. Hemoglobin 8.3 platelets 78 sodium 140 potassium 4.1 creatinine 0.41. Patient remains on IV heparin and IV amiodarone for his atrial fibrillation. PHYSICAL EXAM: VITAL SIGNS: Reviewed. GENERAL: Well-developed in no acute distress. ABDOMEN: Soft. Nondistended. Midline incision clean dry and intact Jejunostomy on the left with yellowish brown output. Stoma pink with slough NEUROLOGIC: intubated ASSESSMENT: 1. Ischemic small intestine and intra-abdominal adhesions status post exploratory laparotomy with small bowel resection and jejunostomy PLAN: -Toradol added for pain control -Continue ICU management -Continue supportive care -Patient to have swallow eval today -May begin clear liquids when stable -Patient will require lifelong TPN -Continue TPN for nutrition support -CODE STATUS was changed to DO NOT RESUSCITATE Physician Family Assistant note has been reviewed by physician. Signing provider agrees with the documented findings, assessment, and plan of care. I have personally seen and examined the patient, reviewed the TELECASTING ENGINEER /PAs history, exam and MDM and agree with the assessment and plan as written. Based on total visit time, I have performed more than 50% of the visit. As above: Patient says his pain is improved today. He is tachycardic. No fevers. White blood cell count increased today. Stoma remains pink with some exudate. Abdomen with mild tenderness. Incision is clean and dry. Continue antibiotics. Possible PICC line tomorrow for ongoing TPN purposes. Continue supportive care. Discussed with patient's sister alive bedside. Objective - Vital Signs Vital signs: Vital Signs Temp 98.6 F 02/02/23 08:00 Pulse 106 H 02/02/23 10:00 Resp 15 02/02/23 10:00 BP 122/79 02/02/23 10:00 Pulse Ox 98 02/02/23 10:00 FiO2 30 02/01/23 10:15 Intake & Output 02/01/23 02/02/23 02/02/23 18:59 06:59 18:59 Intake Total 2818.500 2834.736 600.768 Output Total 1440 1190 315 Balance 6626.615 1037.736 285.768 Weight 87 kg Intake: IV 1586 2493 470 Anidulafungin 100 mg In 100 Sodium Chloride 0.9% 100 ml @ 84 mls/hr IVPB Q24H [facility] Rx#:[id number] Fat Emulsion 20% 250 ml 168 In Empty Bag 1 bag @ 21 mls/hr IV TuFr [facility] Rx#: [id number] Mvi, Adult No.4 with Vit 495 180 K 10 ml Trace (Conc-1Ml/ Dose) 1 ml Sodium Acetate 30 meq Calcium Gluconate 1.25 gm Potassium Acetate 40 meq Potassium Phosphate 24 mmol In Amino Acid 5%-D15w 1,000 ml @ 45 mls/hr IV . [id number] [facility] Rx#:[id number] Piperacillin-Tazobactam 3 100 200 100 .375 gm In Sodium Chloride 0.9% 100 ml @ 25 mls/hr IVPB Q8H [facility] Rx#: [id number] Pressure Bag (0.9 Sodium 36 30 Chloride) Sodium Chloride 0.9% 1, 1450 1500 190 000 ml @ 20 mls/hr IV . Q24H [facility] Rx#:[id number] Intake, IV Titration 1232.500 341.736 130.768 Amount Amiodarone 450 mg In 222.504 Dextrose 5% in Water 250 ml @ 0.5 MG/MIN 16.667 mls/hr IV .Q15H [facility] Rx#: [id number] Heparin Sod,Pork in 0.45% 143.568 119.232 130.768 NaCl 25,000 unit In 0.45 % NaCl 1 250ml.bag @ 12 UNITS/KG/HR 7.68 mls/hr IV .Q24H [facility] Rx#: [id number] Mvi, Adult No.4 with Vit 1066.5 K 10 ml Trace (Conc-1Ml/ Dose) 1 ml Sodium Acetate 30 meq Calcium Gluconate 1.25 gm Potassium Acetate 40 meq Potassium Phosphate 24 mmol In Amino Acid 5%-D15w 1,000 ml @ 45 mls/hr IV . [id number] [facility] Rx#:[id number] Norepinephrine 8 mg In 10.102 Sodium Chloride 0.9% 250 ml @ 0.03 MCG/KG/MIN 4. 615 mls/hr IV .Q24H [facility] Rx#:[id number] propofoL 1,000 mg In 12.330 Empty Bag 1 bag @ 15 MCG/ KG/MIN 5.348 mls/hr IV . [id number] [facility] Rx#:[id number] Output: Gastric Drainage 75 50 Urine 745 690 265 Stool 620 500 Other: Voiding Method Indwelling Catheter Indwelling Catheter Indwelling Catheter ABP, PAP, CO, CI - Last Documented Arterial Blood Pressure 112/78 - Labs CBC & Chem 7: 02/02/23 04:35 02/02/23 04:35 Labs: Abnormal Lab Results - Last 24 Hours (Table) 01/31/23 02/01/23 02/01/23 Range/Units 04:45 13:30 13:31 WBC (3.8-10.6) k/uL RBC (4.30-5.90) m/uL Hgb (13.0-17.5) gm/dL Hct (39.0-53.0) % RDW (11.5-15.5) % Plt Count (150-450) k/uL Neutrophils # (Manual) (1.3-7.7) k/uL Lymphocytes # (Manual) (1.0-4.8) k/uL Nucleated RBCs (0-0) /100 WBC APTT 43.4 H (22.0-30.0) sec Chloride (98-107) mmol/L BUN (9-20) mg/dL Creatinine (0.66-1.25) mg/dL Glucose (74-99) mg/dL POC Glucose (mg/dL) 136 H (70-110) mg/dL Calcium (8.4-10.2) mg/dL Ionized Calcium Paula (4.5-5.3) mg/dL Cegwh-5-Kocwcpzqb 0.46 H (0.10-0.40) d/dL Xnqhh-1-Cdwlvumbj 0.59 L (0.60-1.00) d/dL Beta Globulins 0.48 L (0.60-1.30) d/dL Gamma Globulins 0.53 L (0.70-1.50) d/dL 0902/02/23 02/02/23 Range/Units 22:14 00:08 04:35 WBC (3.8-10.6) k/uL RBC (4.30-5.90) m/uL Hgb (13.0-17.5) gm/dL Hct (39.0-53.0) % RDW (11.5-15.5) % Plt Count (150-450) k/uL Neutrophils # (Manual) (1.3-7.7) k/uL Lymphocytes # (Manual) (1.0-4.8) k/uL Nucleated RBCs (0-0) /100 WBC APTT 38.5 H (22.0-30.0) sec Chloride (98-107) mmol/L BUN (9-20) mg/dL Creatinine (0.66-1.25) mg/dL Glucose (74-99) mg/dL POC Glucose (mg/dL) 126 H (70-110) mg/dL Calcium (8.4-10.2) mg/dL Ionized Calcium Paula 4.4 L (4.5-5.3) mg/dL Ikdqi-1-Lvrdoypeu (0.10-0.40) d/dL Lksmi-9-Dogbebfze (0.60-1.00) d/dL Beta Globulins (0.60-1.30) d/dL Gamma Globulins (0.70-1.50) d/dL 02/02/23 02/02/23 02/02/23 Range/Units 04:35 04:35 04:35 WBC 24.1 H (3.8-10.6) k/uL RBC 3.23 L (4.30-5.90) m/uL Hgb 8.3 L (13.0-17.5) gm/dL Hct 26.2 L (39.0-53.0) % RDW 21.2 H (11.5-15.5) % Plt Count 78 L (150-450) k/uL Neutrophils # (Manual) 23.60 H (1.3-7.7) k/uL Lymphocytes # (Manual) 0.48 L (1.0-4.8) k/uL Nucleated RBCs 2 H (0-0) /100 WBC APTT 47.9 H (22.0-30.0) sec Chloride 116 H (98-107) mmol/L BUN 21 H (9-20) mg/dL Creatinine 0.41 L (0.66-1.25) mg/dL Glucose 128 H (74-99) mg/dL POC Glucose (mg/dL) (70-110) mg/dL Calcium 6.7 L (8.4-10.2) mg/dL Ionized Calcium Paula (4.5-5.3) mg/dL Qkswf-2-Yfcfzhxes (0.10-0.40) d/dL Mpaeh-7-Mbqzlmyrr (0.60-1.00) d/dL Beta Globulins (0.60-1.30) d/dL Gamma Globulins (0.70-1.50) d/dL 02/02/23 Range/Units 06:01 WBC (3.8-10.6) k/uL RBC (4.30-5.90) m/uL Hgb (13.0-17.5) gm/dL Hct (39.0-53.0) % RDW (11.5-15.5) % Plt Count (150-450) k/uL Neutrophils # (Manual) (1.3-7.7) k/uL Lymphocytes # (Manual) (1.0-4.8) k/uL Nucleated RBCs (0-0) /100 WBC APTT (22.0-30.0) sec Chloride (98-107) mmol/L BUN (9-20) mg/dL Creatinine (0.66-1.25) mg/dL Glucose (74-99) mg/dL POC Glucose (mg/dL) 129 H (70-110) mg/dL Calcium (8.4-10.2) mg/dL Ionized Calcium Paula (4.5-5.3) mg/dL Hybjo-0-Hojjqkqnn (0.10-0.40) d/dL Zhssq-6-Jasgzbyis (0.60-1.00) d/dL Beta Globulins (0.60-1.30) d/dL Gamma Globulins (0.70-1.50) d/dL
--- NOTE | 2023-02-02 11:53 | P.PN ---
Subjective Progress Note Date: 02/02/23 Principal diagnosis: Sepsis/ischemic small intestine Patient is a 67-year-old male with a past medical history negative for atrial fibrillation diabetes mellitus hypertension PE seizure disorder and dementia patient was brought into the hospital for evaluation of a syncopal episode , patient did have a CT abdominal pelvis suggestive of small bowel ischemia status post laparotomy patient was noticed to have ischemic small bowel intestine intra-abdominal adhesion requiring small bowel resection and jejunostomy and admission to the ICU. On today's evaluation of that is 02/02/2023, the patient continue to be afebrile, the patient is hemodynamically stable , the patient is breathing comfortably on 2 L nasal cannula oxygen patient is more awake and alert and trying to communicate but however not a good historian no vomiting or any other changes reported by the nursing staff Patient white count is up to 24.1, creatinine 0.41, sputum with vinay blood culture negative Objective - Vital Signs Vital signs: Vital Signs Temp 98.6 F 02/02/23 08:00 Pulse 131 H 02/02/23 09:00 Resp 16 02/02/23 09:00 BP 111/79 02/02/23 09:00 Pulse Ox 96 02/02/23 09:00 FiO2 30 02/01/23 10:15 Intake & Output 02/01/23 02/02/23 02/02/23 18:59 06:59 18:59 Intake Total 2818.500 2834.736 535.768 Output Total 1440 1190 255 Balance 6337.325 6554.736 280.768 Weight 87 kg Intake: IV 1586 2493 405 Anidulafungin 100 mg In 100 Sodium Chloride 0.9% 100 ml @ 84 mls/hr IVPB Q24H [facility] Rx#:[id number] Fat Emulsion 20% 250 ml 168 In Empty Bag 1 bag @ 21 mls/hr IV TuFr [facility] Rx#: [id number] Mvi, Adult No.4 with Vit 495 135 K 10 ml Trace (Conc-1Ml/ Dose) 1 ml Sodium Acetate 30 meq Calcium Gluconate 1.25 gm Potassium Acetate 40 meq Potassium Phosphate 24 mmol In Amino Acid 5%-D15w 1,000 ml @ 45 mls/hr IV . [id number] [facility] Rx#:[id number] Piperacillin-Tazobactam 3 100 200 100 .375 gm In Sodium Chloride 0.9% 100 ml @ 25 mls/hr IVPB Q8H [facility] Rx#: [id number] Pressure Bag (0.9 Sodium 36 30 Chloride) Sodium Chloride 0.9% 1, 1450 1500 170 000 ml @ 125 mls/hr IV . Q8H [facility] Rx#:[id number] Intake, IV Titration 1232.500 341.736 130.768 Amount Amiodarone 450 mg In 222.504 Dextrose 5% in Water 250 ml @ 0.5 MG/MIN 16.667 mls/hr IV .Q15H [facility] Rx#: [id number] Heparin Sod,Pork in 0.45% 143.568 119.232 130.768 NaCl 25,000 unit In 0.45 % NaCl 1 250ml.bag @ 12 UNITS/KG/HR 7.68 mls/hr IV .Q24H [facility] Rx#: [id number] Mvi, Adult No.4 with Vit 1066.5 K 10 ml Trace (Conc-1Ml/ Dose) 1 ml Sodium Acetate 30 meq Calcium Gluconate 1.25 gm Potassium Acetate 40 meq Potassium Phosphate 24 mmol In Amino Acid 5%-D15w 1,000 ml @ 45 mls/hr IV . [id number] [facility] Rx#:[id number] Norepinephrine 8 mg In 10.102 Sodium Chloride 0.9% 250 ml @ 0.03 MCG/KG/MIN 4. 615 mls/hr IV .Q24H [facility] Rx#:[id number] propofoL 1,000 mg In 12.330 Empty Bag 1 bag @ 15 MCG/ KG/MIN 5.348 mls/hr IV . [id number] [facility] Rx#:[id number] Output: Gastric Drainage 75 50 Urine 745 690 205 Stool 620 500 Other: Voiding Method Indwelling Catheter Indwelling Catheter Indwelling Catheter ABP, PAP, CO, CI - Last Documented Arterial Blood Pressure 112/78 - Exam GENERAL DESCRIPTION: An elderly male lying in bed in no distress RESPIRATORY SYSTEM: Unlabored breathing , decreased breath sounds at bases HEART: S1 S2 regular rate and rhythm , ABDOMEN: Soft , midline incision is intact EXTREMITIES: No edema feet - Labs CBC & Chem 7: 02/02/23 04:35 02/02/23 04:35 Labs: Abnormal Lab Results - Last 24 Hours (Table) 01/31/23 02/01/23 02/01/23 Range/Units 04:45 13:30 13:31 WBC (3.8-10.6) k/uL RBC (4.30-5.90) m/uL Hgb (13.0-17.5) gm/dL Hct (39.0-53.0) % RDW (11.5-15.5) % Plt Count (150-450) k/uL Neutrophils # (Manual) (1.3-7.7) k/uL Lymphocytes # (Manual) (1.0-4.8) k/uL Nucleated RBCs (0-0) /100 WBC APTT 43.4 H (22.0-30.0) sec Chloride (98-107) mmol/L BUN (9-20) mg/dL Creatinine (0.66-1.25) mg/dL Glucose (74-99) mg/dL POC Glucose (mg/dL) 136 H (70-110) mg/dL Calcium (8.4-10.2) mg/dL Ionized Calcium Paula (4.5-5.3) mg/dL Mmnbr-6-Wfslfmwfl 0.46 H (0.10-0.40) d/dL Gnvke-6-Svfcecthn 0.59 L (0.60-1.00) d/dL Beta Globulins 0.48 L (0.60-1.30) d/dL Gamma Globulins 0.53 L (0.70-1.50) d/dL 02/01/23 02/02/23 02/02/23 Range/Units 22:14 00:08 04:35 WBC (3.8-10.6) k/uL RBC (4.30-5.90) m/uL Hgb (13.0-17.5) gm/dL Hct (39.0-53.0) % RDW (11.5-15.5) % Plt Count (150-450) k/uL Neutrophils # (Manual) (1.3-7.7) k/uL Lymphocytes # (Manual) (1.0-4.8) k/uL Nucleated RBCs (0-0) /100 WBC APTT 38.5 H (22.0-30.0) sec Chloride (98-107) mmol/L BUN (9-20) mg/dL Creatinine (0.66-1.25) mg/dL Glucose (74-99) mg/dL POC Glucose (mg/dL) 126 H (70-110) mg/dL Calcium (8.4-10.2) mg/dL Ionized Calcium Paula 4.4 L (4.5-5.3) mg/dL Dlndj-3-Beycgbntu (0.10-0.40) d/dL Xytho-7-Bwfwaoezc (0.60-1.00) d/dL Beta Globulins (0.60-1.30) d/dL Gamma Globulins (0.70-1.50) d/dL 02/02/23 02/02/23 02/02/23 Range/Units 04:35 04:35 04:35 WBC 24.1 H (3.8-10.6) k/uL RBC 3.23 L (4.30-5.90) m/uL Hgb 8.3 L (13.0-17.5) gm/dL Hct 26.2 L (39.0-53.0) % RDW 21.2 H (11.5-15.5) % Plt Count 78 L (150-450) k/uL Neutrophils # (Manual) 23.60 H (1.3-7.7) k/uL Lymphocytes # (Manual) 0.48 L (1.0-4.8) k/uL Nucleated RBCs 2 H (0-0) /100 WBC APTT 47.9 H (22.0-30.0) sec Chloride 116 H (98-107) mmol/L BUN 21 H (9-20) mg/dL Creatinine 0.41 L (0.66-1.25) mg/dL Glucose 128 H (74-99) mg/dL POC Glucose (mg/dL) (70-110) mg/dL Calcium 6.7 L (8.4-10.2) mg/dL Ionized Calcium Paula (4.5-5.3) mg/dL Phfnx-7-Tvgdbejgv (0.10-0.40) d/dL Fqayh-8-Qdncgxzsf (0.60-1.00) d/dL Beta Globulins (0.60-1.30) d/dL Gamma Globulins (0.70-1.50) d/dL 02/02/23 Range/Units 06:01 WBC (3.8-10.6) k/uL RBC (4.30-5.90) m/uL Hgb (13.0-17.5) gm/dL Hct (39.0-53.0) % RDW (11.5-15.5) % Plt Count (150-450) k/uL Neutrophils # (Manual) (1.3-7.7) k/uL Lymphocytes # (Manual) (1.0-4.8) k/uL Nucleated RBCs (0-0) /100 WBC APTT (22.0-30.0) sec Chloride (98-107) mmol/L BUN (9-20) mg/dL Creatinine (0.66-1.25) mg/dL Glucose (74-99) mg/dL POC Glucose (mg/dL) 129 H (70-110) mg/dL Calcium (8.4-10.2) mg/dL Ionized Calcium Paula (4.5-5.3) mg/dL Dmtlu-2-Zbmwbumgg (0.10-0.40) d/dL Epetb-3-Vwplpmpxr (0.60-1.00) d/dL Beta Globulins (0.60-1.30) d/dL Gamma Globulins (0.70-1.50) d/dL Assessment and Plan (1) Ischemic bowel disease Current Visit: Yes Status: Acute Priority: High Code(s): K55.9 - VASCULAR DISORDER OF INTESTINE, UNSPECIFIED SNOMED Code(s): 32995652 (2) Sepsis Current Visit: Yes Status: Acute Priority: High Code(s): A41.9 - SEPSIS, UNSPECIFIED ORGANISM SNOMED Code(s): 55568332 Plan: 1patient present to hospital with sepsis/septic shock in this patient with hypotension fever elevated white count tachycardia source is abdominal pain in t his patient noticed to have small bowel ischemia s/p laparotomy with small bowel resection and jejunostomy, we will need to cover for the enteric gram-negative the likely pathogen for this episode of sepsis/septic shock. 2patient afebrile , however the patient did have worsening of his white count patient benefit from a CT of abdominal pelvis 3-patient to continue with Zosyn along with Eraxis and monitor clinical course closely Dictation was produced using [employer] software. please excuse any grammatical, word or spelling errors. Time with Patient: Less than 30
[2023-02-02 12:00] LABS: Glucose,Whole Blood 109 mg/dL (70-110)
[2023-02-02] MEDS: SODIUM CHLORIDE 0.9% 1,000 ML IV SCH (12:23)
--- NOTE | 2023-02-02 13:36 | P.PN ---
Subjective Progress Note Date: 02/02/23 Patient is a 67 -year-old male with history of high blood pressure, atrial fibrillation, diabetes mellitus type 2, obstructive uropathy, and long-standing ventral hernia who presented to the ER from his assisted due to syncopal episode. In the ER he underwent extensive evaluation. On arrival was vital signs were remarkable for blood pressure 67/33 and a pulse of 60. Laboratory analysis was reviewed including a CBC, coagulation studies, CMP, liver function, lactic acid, and troponin which were remarkable for white blood cell count 15, hemoglobin 8.7, hematocrit 29.9, INR 1.6, carbon dioxide 14, anion gap 19, lactic acid 9.6. Influenza A/B/RSV/COVID-[address] abdomen and pelvis completed which showed small bowel ischemia versus obstruction, ascites, cholelithiasis. In the ER he was given 2 L normal saline. He remained hypotensive and was started on norepinephrine and Zosyn. Arrangements were made for admission to the ICU. He was seen by surgery, he was administered a dose of K Centra and underwent urgent exploratory laparotomy with small bowel resection and jejunostomy. The majority of the small bowel was resected with approximately 1 foot of jejunum that was viable, and duodenum was also viable. 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 Postoperatively he required 4 untis of pRBC. The night after surgery the patient's vasopressor requirements increased and he was subsequently started on phenylephrine and vasopressin. His cortisol was 16 which is not adequate for his state of shock and he was started on cortef. On 01/28 he went into A. fib with RVR necessitating an amiodarone drip. He vaso and phe nylephrine were able to be weaned off by the morning of 01/29. He struggled with sinus tachycardia on 01/29 and vasopressors were adjusted. 02/01 Patient was seen and examined. Extubated this morning. CBC shows WBC count of 17.6, Hg 7.9, Plt 80. Coag panel APTT 34.5. ABG pH 7.4, pCO2 37. BMP Cl 114, bicab 21, BUN 25, Cr 0.43, glucose 141, Ca 6.6. Phos 2.5. Mag 2.3. Amiodarone 0.5 mg/min. Antibiotics include Anidulafungin and Zosyn. Currently on TPN. Heparin drip at 21 units/kg/hr. Solucortef at 50 mg IV BID. Levophed discontinued at this time. NS at 125 cc/hr. CXR shows bibasilar opacities. 02/02 Patient was seen and examined. Patient reports uncontrolled pain in his abdomen. Dilaudid increased from 0.5 to 1mg and Toradol added. CBC shows WBC count of 24.1, Hg 8.3, Plt 78. Coag panel APTT 47.9. BMP Cl 112, BUN 21, Cr 0.42, glucose 128, Ca 6.7. Phos 2.6. Mag 2.1. Ionized Ca 4.4. Recieving Ca gluconate 1g IV today. Amiodarone discontinued. Antibiotics include Anidulafungin and Zosyn. Currently on TPN. Heparin drip at 25 units/kg/hr. Solucortef at 50 mg IV BID. Levophed weaned off yesterday. NS at 20 cc/hr. CXR shows persistent bibasilar opacities. Vital signs reviewed General: Ill appearing, mild distress, appears at stated age Cardiovascular: S1S2 reg, no murmur Lungs: Course bs bilateral, no rhonchi, no rales , no accessory muscle use Abdominal: soft, nontender to palpation, no guarding, no appreciable organomegaly, +ostomy, + midline dressing without soak through Ext: + gross muscle atrophy, no edema b/l lower extremities, no contractures Neuro: no FND Psych: Awake, can follow commands Ischemic colitis s/p small bowel resection with jejunostomy, will result in s hort gut syndrome requiring TPN Acute hypoxic respiratory failure Septic shock due to ischemic bowel Shock liver Cardiomyopathy with EF 35-40%, suspect sepsis induced Hypocalcemia Atrial fibrillation with RVR Anemia, due to acute blood loss s/p 4 units pRBC Coagulopathy Thrombocytopenia Resolved: Hypophosphatemia, Lactic acidosis, OLE Chronic: Hypertension, Cirrhosis, Constipation, Gastric ulcer, Encephalopathy Based on my assessment of this patient, this patient meets a high complexity lev el of care. Patient has an acute diagnosis of septic shock secondary to ischemic colitis s/p small bowel resection with jejunostomy complicated with ischemic cardiomyopathy and acute blood loss anemia requring 4 unit PRBC that poses a threat to life or bodily function. Ischemic colitis: s/p small bowel resection with jejunostomy 01/26. 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 Protonix 40 mg IV BID. Continue Zosyn. Acute hypoxic respiratory failure: CXR as above. Extubated 02/01. He is not to be re-intubated. Septic shock due to ischemic bowel: Blood Cx negative. Sputum Cx vinay fred cans. Currently on Zosyn (D8) and Anidulafungin (D4). Weaned off Levophed 02/01. ID on board. Shock liver: Trend AST/ALT Cardiomyopathy with EF 35-40%, suspect sepsis induced Hypocalcemia: On TPN. Hypophosphatemia resolved. Given 1g IV Ca gluconate today. Atrial fibrillation with RVR: Currently in sinus. Heparin drip. 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 Anemia, due to acute blood loss s/p 4 units pRBC: Stable. Transfuse if Hg < 7.0. Hematology recommends anticoagulation as long his platelets remained greater than 50,000 and there is no gross bleeding. Coagulopathy: APTT montoring while on Heparin drip. Thrombocytopenia: Continue to monitor while on Heparin. Heparin drip for DVT prophylaxis. NO CODE. I have reviewed the following workforce management consultant notes: I have reviewed the results of the following tests: CBC, Coag panel, BMP, Phos, Mag. I have ordered the following tests: Agree with CBC, BMP, Phos, Mag. I have discussed the care of this patient with the following independent historian: I have independently interpreted the following test below: CXR as above. I have discussed the management of this patient with the following physician: This patient has a high risk of morbidity due to the following reasons: Patient is currently on heparin drip that requires intensive monitoring for APTT for toxicity. Objective - Vital Signs Vital signs: Vital Signs Temp 98.6 F 02/02/23 08:00 Pulse 129 H 02/02/23 08:00 Resp 18 02/02/23 08:00 BP 130/94 02/02/23 08:00 Pulse Ox 96 02/02/23 08:00 FiO2 30 02/01/23 10:15 Intake & Output 02/01/23 02/02/23 02/02/23 18:59 06:59 18:59 Intake Total 2818.500 2834.736 470.768 Output Total 1440 1190 180 Balance 2192.943 4862.736 290.768 Weight 87 kg Intake: IV 1586 2493 340 Anidulafungin 100 mg In 100 Sodium Chloride 0.9% 100 ml @ 84 mls/hr IVPB Q24H [facility] Rx#:[id number] Fat Emulsion 20% 250 ml 168 In Empty Bag 1 bag @ 21 mls/hr IV TuFr [facility] Rx#: [id number] Mvi, Adult No.4 with Vit 495 90 K 10 ml Trace (Conc-1Ml/ Dose) 1 ml Sodium Acetate 30 meq Calcium Gluconate 1.25 gm Potassium Acetate 40 meq Potassium Phosphate 24 mmol In Amino Acid 5%-D15w 1,000 ml @ 45 mls/hr IV . [id number] [facility] Rx#:[id number] Piperacillin-Tazobactam 3 100 200 100 .375 gm In Sodium Chloride 0.9% 100 ml @ 25 mls/hr IVPB Q8H [facility] Rx#: [id number] Pressure Bag (0.9 Sodium 36 30 Chloride) Sodium Chloride 0.9% 1, 1450 1500 150 000 ml @ 125 mls/hr IV . Q8H [facility] Rx#:[id number] Intake, IV Titration 1232.500 341.736 130.768 Amount Amiodarone 450 mg In 222.504 Dextrose 5% in Water 250 ml @ 0.5 MG/MIN 16.667 mls/hr IV .Q15H [facility] Rx#: [id number] Heparin Sod,Pork in 0.45% 143.568 119.232 130.768 NaCl 25,000 unit In 0.45 % NaCl 1 250ml.bag @ 12 UNITS/KG/HR 7.68 mls/hr IV .Q24H [facility] Rx#: [id number] Mvi, Adult No.4 with Vit 1066.5 K 10 ml Trace (Conc-1Ml/ Dose) 1 ml Sodium Acetate 30 meq Calcium Gluconate 1.25 gm Potassium Acetate 40 meq Potassium Phosphate 24 mmol In Amino Acid 5%-D15w 1,000 ml @ 45 mls/hr IV . [id number] [facility] Rx#:[id number] Norepinephrine 8 mg In 10.102 Sodium Chloride 0.9% 250 ml @ 0.03 MCG/KG/MIN 4. 615 mls/hr IV .Q24H [facility] Rx#:[id number] propofoL 1,000 mg In 12.330 Empty Bag 1 bag @ 15 MCG/ KG/MIN 5.348 mls/hr IV . [id number] [facility] Rx#:[id number] Output: Gastric Drainage 75 50 Urine 745 690 130 Stool 620 500 Other: Voiding Method Indwelling Catheter Indwelling Catheter Indwelling Catheter ABP, PAP, CO, CI - Last Documented Arterial Blood Pressure 112/78 - Labs CBC & Chem 7: 02/02/23 04:35 02/02/23 04:35 Labs: Abnormal Lab Results - Last 24 Hours (Table) 01/31/23 02/01/23 02/01/23 Range/Units 04:45 13:30 13:31 WBC (3.8-10.6) k/uL RBC (4.30-5.90) m/uL Hgb (13.0-17.5) gm/dL Hct (39.0-53.0) % RDW (11.5-15.5) % Plt Count (150-450) k/uL Neutrophils # (Manual) (1.3-7.7) k/uL Lymphocytes # (Manual) (1.0-4.8) k/uL Nucleated RBCs (0-0) /100 WBC APTT 43.4 H (22.0-30.0) sec Chloride (98-107) mmol/L BUN (9-20) mg/dL Creatinine (0.66-1.25) mg/dL Glucose (74-99) mg/dL POC Glucose (mg/dL) 136 H (70-110) mg/dL Calcium (8.4-10.2) mg/dL Ionized Calcium Paula (4.5-5.3) mg/dL Nsrpl-3-Vvrngacns 0.46 H (0.10-0.40) d/dL Bphcy-8-Sdskmlkiq 0.59 L (0.60-1.00) d/dL Beta Globulins 0.48 L (0.60-1.30) d/dL Gamma Globulins 0.53 L (0.70-1.50) d/dL 02/01/23 02/02/23 02/02/23 Range/Units 22:14 00:08 04:35 WBC (3.8-10.6) k/uL RBC (4.30-5.90) m/uL Hgb (13.0-17.5) gm/dL Hct (39.0-53.0) % RDW (11.5-15.5) % Plt Count (150-450) k/uL Neutrophils # (Manual) (1.3-7.7) k/uL Lymphocytes # (Manual) (1.0-4.8) k/uL Nucleated RBCs (0-0) /100 WBC APTT 38.5 H (22.0-30.0) sec Chloride (98-107) mmol/L BUN (9-20) mg/dL Creatinine (0.66-1.25) mg/dL Glucose (74-99) mg/dL POC Glucose (mg/dL) 126 H (70-110) mg/dL Calcium (8.4-10.2) mg/dL Ionized Calcium Paula 4.4 L (4.5-5.3) mg/dL Bvcgp-2-Cnrkilowz (0.10-0.40) d/dL Ypxtq-2-Cyhaezlqm (0.60-1.00) d/dL Beta Globulins (0.60-1.30) d/dL Gamma Globulins (0.70-1.50) d/dL 02/02/23 02/02/23 02/02/23 Range/Units 04:35 04:35 04:35 WBC 24.1 H (3.8-10.6) k/uL RBC 3.23 L (4.30-5.90) m/uL Hgb 8.3 L (13.0-17.5) gm/dL Hct 26.2 L (39.0-53.0) % RDW 21.2 H (11.5-15.5) % Plt Count 78 L (150-450) k/uL Neutrophils # (Manual) 23.60 H (1.3-7.7) k/uL Lymphocytes # (Manual) 0.48 L (1.0-4.8) k/uL Nucleated RBCs 2 H (0-0) /100 WBC APTT 47.9 H (22.0-30.0) sec Chloride 116 H (98-107) mmol/L BUN 21 H (9-20) mg/dL Creatinine 0.41 L (0.66-1.25) mg/dL Glucose 128 H (74-99) mg/dL POC Glucose (mg/dL) (70-110) mg/dL Calcium 6.7 L (8.4-10.2) mg/dL Ionized Calcium Paula (4.5-5.3) mg/dL Uznzn-2-Quyitmeba (0.10-0.40) d/dL Dsusx-2-Peqzurgvn (0.60-1.00) d/dL Beta Globulins (0.60-1.30) d/dL Gamma Globulins (0.70-1.50) d/dL 02/02/23 Range/Units 06:01 WBC (3.8-10.6) k/uL RBC (4.30-5.90) m/uL Hgb (13.0-17.5) gm/dL Hct (39.0-53.0) % RDW (11.5-15.5) % Plt Count (150-450) k/uL Neutrophils # (Manual) (1.3-7.7) k/uL Lymphocytes # (Manual) (1.0-4.8) k/uL Nucleated RBCs (0-0) /100 WBC APTT (22.0-30.0) sec Chloride (98-107) mmol/L BUN (9-20) mg/dL Creatinine (0.66-1.25) mg/dL Glucose (74-99) mg/dL POC Glucose (mg/dL) 129 H (70-110) mg/dL Calcium (8.4-10.2) mg/dL Ionized Calcium Paula (4.5-5.3) mg/dL Rvtqa-1-Bmtxvcfqr (0.10-0.40) d/dL Nxlio-0-Bafflzyqg (0.60-1.00) d/dL Beta Globulins (0.60-1.30) d/dL Gamma Globulins (0.70-1.50) d/dL
[2023-02-02] MEDS ORDERED: AMIODARONE 450 MG in DEXTROSE 5% IN WATER 250 ML IV SCH ×2 (14:30)
--- NOTE | 2023-02-02 14:41 | P.PN ---
Subjective Progress Note Date: 02/02/23 Principal diagnosis: Respiratory failure. Reevaluated today on 01/28/2023, patient remains in the ICU, intubated and mechanically ventilated. His assist-control rate is 16 tidal volume is 500 FiO2 40% PEEP of 5 ABG showed a pO2 of 129 pCO2 32 pH of 7.40 and I cut down his FiO2 to 35%. Patient is off propofol this morning and he is able to follow instructions, seems to comprehend, and seems to be relatively intact. However the patient is still requiring significant amount of drips/pressors he is on vasopressin at 0.04 units. Hour is also on norepinephrine at 19 mcg/m, Rodrigue- Synephrine has been discontinued. His IV fluid is down to 75 mL per hour and his bicarb is down to 25 ML per hour drip. Remains on amiodarone, patient is on 0.5 mg/m, and he is yet to be seen by cardiology today, seems to be in atrial flutter. WBC count today remains elevated at 24.4 hemoglobin is 9.4, lactic acid is 7.3, patient will receive another bolus of saline this morning. Elected lites are normal renal profile is improving bicarb is down to 17 and his creatinine is down to 1.37, liver enzymes remain elevated with AST of 591 and ALT of 449 chest x-ray showed minimal basilar atelectasis, no clear-cut evidence of infiltrates. Patient was reevaluated today on 01/29/2023, remains in the ICU, intubated and mechanically ventilated. Patient continues to have issues with atrial fibri llation and RVR, remains on amiodarone drip, he is receiving beta blockers by cardiology however that seems to be dropping his blood pressure, patient remains on relatively high dose of norepinephrine at 0.16 mcg/kg/m and today I suggested transitioning norepinephrine to Rodrigue-Synephrine since he was doing much better as far as tachycardia while he was on Rodrigue-Synephrine. We'll try to start Rodrigue-Syne phrine and gradually tapered down his norepinephrine hoping that his tachycardia would get better with Rodrigue-Synephrine on board. Remains on propofol at 7 mcg/kg/m remains on Lovenox remains on Zosyn remains on amiodarone at 0.5 mg/m. Patient did receive metoprolol 2.5 mg IV push slowly earlier. Ventilator smith he is on assist control rate of 16 tidal volume 500 FiO2 35% PEEP of 5 up gases showed a BNP O2 of 147 pCO2 42 pH of 7.41. Hence his FiO2 was brought down to 35% from 40% his sodium bicarb corrected nicely hence I'm stopping his sodium bicarb drip his urine output is about 100 mL/h, patient remains on IV fluid about 1 25 mL per hour. Not to mention the patient was started on TPN. Overall the patient remains critically ill, he is not ready for weaning mostly because of his cardiac issues and intermittent episodes of hypotension syndrome requiring significant amount of pressors re elevated today on 01/30, patient remains in the ICU, intubated and mechanically ventilated. He is on assist control rate of 16 tidal volume 500 FiO2 35% and PEEP of 5 ABG showed a pO2 of 102 pCO2 34 pH of 7.45 patient remains on amiodarone at 0.5 mg/m remains on TPN with lipids he is on Rodrigue-Syne phrine 1.2 mcg/kg/m propofol 10 mcg/kg/m IV fluid and 1 25 mL per hour remains on Solu-Cortef 50 mg IV push every 12 hours is also on Zosyn blood pressure is marginal in spite of Rodrigue-Synephrine hence I recommended that the patient gets a bolus of 0.9 normal saline today, and I actually plan to hold his propofol today and give the patient mental status assessment and possibly a weaning trial with pressure support and CPAP. Yesterday the patient was having significant tachycardia however the patient responded well to transitioning norepinephrine to Rodrigue-Synephrine and his tachycardia did resolve. He is now in sinus rhythm and his rate is in the 70s. I believe she count is 20.4 hemoglobin is 7.7 electrolytes are normal renal profile remains normal. A blood sugar is also normal, liver enzymes remains a bit elevated with ALT of 459 and AST of 422 bilirubin is 2.2. Progress note dated 01/31/2023. This is a 67-year-old male who was admitted to the hospital on January 26, with a history of small bowel obstruction, status post small bowel resection, and jejunostomy. The patient went to the operating room on January 26. He remains on mechanical ventilator. He is on volume assist control, rate 16, tidal volume 500, FiO2 35%, and PEEP of 5. Blood gases show a PaO2 of 125, pCO2 35, and pH is 7.42. The FiO2 was turned down from 35-30%. The patient's on saline at 25 mL an hour, amiodarone at 0.5 mg/m, Rodrigue-Synephrine, which is been recently discontinued, and TPN at 60 mL an hour. Propofol is also been weaned off. The patient is a DO NOT RESUSCITATE patient. Nonetheless, the patient will have a daily interruption of sedation, and a spontaneous breathing trial on a pressure support of 5 and CPAP of 5. The patient does continue on Zosyn. White count 17.4, hemoglobin 7.7, hematocrit 25, and platelet count 67,000. Sodium 139, potassium 3.7, chlorides 113, CO2 22, BUN 24, and creatinine 0.51. AST is 381. ALT is 425. Chest x-ray shows trace bilateral effusions. Progress note dated 02/01/2023. This is a 67-year-old male who was admitted to the hospital on January 26, with a history of small bowel obstruction, status post small bowel resection, and jejunostomy. The patient went to the operating room on January 26. He remains on mechanical ventilator. The patient is on the volume assist control, but will be placed on pressure support and CPAP, at 40%, and given a trial, of extubation. The patient continues on antibiotics, antifungals. We made sure with the family, that once the patient is extubated, he is not to be reintubated. The patient's getting TPN at 45 mL an hour, and saline at 1 25 mL an hour. Norepinephrine has been weaned off. The patient remains on heparin via weightbase protocol. In addition, the patient is on amiodarone at 0.5 mg/m. Propofol is off. Once extubated, and the NG tube will be discontinued as well. White count 17.6, hemoglobin 7.9, hematocrit 25.7, and platelet count 80,000. PO2 was 126, pCO2 was 37, and pH of 7.4. Sodium 138, potassium 4, chlorides 114, CO2 21, BUN 25, and creatinine 0.43. Chest x-ray shows a stable portable chest x-ray. Progress note dated 02/02/2023. This is a 67-year-old male who was admitted to the hospital on Angelic 20, with a history of small bowel obstruction, status post small bowel resection, and jejunostomy. The patient went to the operating room on January 26. The patient was successfully extubated yesterday, February 01. The patient is currently on 2 L of oxygen. The patient's getting saline at 125 mL an hour. The patient's getting TPN at 45 mL an hour, and amiodarone at 0.5 mg/m. The patient remains on heparin via weightbase protocol. Zosyn is discontinued. Hydrocortisone is discontinued. White count 24.1, hemoglobin 8.3, hematocrit 26.2, and platelet count 78,000. PTT is 47.9. Sodium 140, potassium 4.1, chlorides 116, CO2 22, BUN 21, and creatinine 0.41. Chest x-ray shows persistent bilateral pleural effusions, and some left lower lobe infiltrate or atelectasis. Objective - Vital Signs Vital signs: Vital Signs Temp 98.6 F 02/02/23 08:00 Pulse 114 H 02/02/23 14:00 Resp 25 H 02/02/23 14:00 BP 131/85 02/02/23 14:00 Pulse Ox 93 L 02/02/23 14:00 FiO2 30 02/01/23 10:15 Intake & Output 02/01/23 02/02/23 02/02/23 18:59 06:59 18:59 Intake Total 2818.500 2834.736 940.768 Output Total 1440 1190 510 Balance 4378.550 2399.736 430.768 Weight 87 kg 87 kg Intake: IV 1586 2493 810 Anidulafungin 100 mg In 100 Sodium Chloride 0.9% 100 ml @ 84 mls/hr IVPB Q24H [facility] Rx#:[id number] Fat Emulsion 20% 250 ml 168 In Empty Bag 1 bag @ 21 mls/hr IV TuFr [facility] Rx#: [id number] Mvi, Adult No.4 with Vit 495 360 K 10 ml Trace (Conc-1Ml/ Dose) 1 ml Sodium Acetate 30 meq Calcium Gluconate 1.25 gm Potassium Acetate 40 meq Potassium Phosphate 24 mmol In Amino Acid 5%-D15w 1,000 ml @ 45 mls/hr IV . [id number] [facility] Rx#:[id number] Piperacillin-Tazobactam 3 100 200 200 .375 gm In Sodium Chloride 0.9% 100 ml @ 25 mls/hr IVPB Q8H [facility] Rx#: [id number] Pressure Bag (0.9 Sodium 36 30 Chloride) Sodium Chloride 0.9% 1, 1450 1500 250 000 ml @ 20 mls/hr IV . Q24H [facility] Rx#:[id number] Intake, IV Titration 1232.500 341.736 130.768 Amount Amiodarone 450 mg In 222.504 Dextrose 5% in Water 250 ml @ 0.5 MG/MIN 16.667 mls/hr IV .Q15H [facility] Rx#: [id number] Heparin Sod,Pork in 0.45% 143.568 119.232 130.768 NaCl 25,000 unit In 0.45 % NaCl 1 250ml.bag @ 12 UNITS/KG/HR 7.68 mls/hr IV .Q24H [facility] Rx#: [id number] Mvi, Adult No.4 with Vit 1066.5 K 10 ml Trace (Conc-1Ml/ Dose) 1 ml Sodium Acetate 30 meq Calcium Gluconate 1.25 gm Potassium Acetate 40 meq Potassium Phosphate 24 mmol In Amino Acid 5%-D15w 1,000 ml @ 45 mls/hr IV . [id number] [facility] Rx#:[id number] Norepinephrine 8 mg In 10.102 Sodium Chloride 0.9% 250 ml @ 0.03 MCG/KG/MIN 4. 615 mls/hr IV .Q24H [facility] Rx#:[id number] propofoL 1,000 mg In 12.330 Empty Bag 1 bag @ 15 MCG/ KG/MIN 5.348 mls/hr IV . [id number] [facility] Rx#:[id number] Output: Gastric Drainage 75 50 Urine 745 690 460 Stool 620 500 Other: Voiding Method Indwelling Catheter Indwelling Catheter Indwelling Catheter ABP, PAP, CO, CI - Last Documented Arterial Blood Pressure 112/78 - Exam No acute distress, extubated, a bit lethargic and sleepy, but does arouse. HEENT examination is grossly unremarkable. Neck supple. Full range of motion. No adenopathy thyromegaly or neck vein distention. Cardiovascular examination reveals regular rhythm rate. S1-S2 normal. No S3 or S4. No discernible murmur noted. Heart sounds are distant. Heart rate is 114 bpm. Lungs reveal scattered bilateral rhonchi. No wheezes or crackles. Breath sounds are equal bilaterally. 3 L saturation is 93%. Abdomen soft bowel sounds are heard. No masses or tenderness. The patient has significant scrotal edema. Extremities are intact. No cyanosis clubbing or edema. Skin is without rash or lesion. Neurologic examination is brief but nonfocal. - Labs CBC & Chem 7: 02/02/23 04:35 02/02/23 04:35 Labs: Abnormal Lab Results - Last 24 Hours (Table) 01/31/23 02/01/23 02/02/23 Range/Units 04:45 22:14 00:08 WBC (3.8-10.6) k/uL RBC (4.30-5.90) m/uL Hgb (13.0-17.5) gm/dL Hct (39.0-53.0) % RDW (11.5-15.5) % Plt Count (150-450) k/uL Neutrophils # (Manual) (1.3-7.7) k/uL Lymphocytes # (Manual) (1.0-4.8) k/uL Nucleated RBCs (0-0) /100 WBC APTT 38.5 H (22.0-30.0) sec Chloride (98-107) mmol/L BUN (9-20) mg/dL Creatinine (0.66-1.25) mg/dL Glucose (74-99) mg/dL POC Glucose (mg/dL) 126 H (70-110) mg/dL Calcium (8.4-10.2) mg/dL Ionized Calcium Paula (4.5-5.3) mg/dL Vijmb-8-Cxqqglslu 0.46 H (0.10-0.40) d/dL Ieqet-0-Isinquxxe 0.59 L (0.60-1.00) d/dL Beta Globulins 0.48 L (0.60-1.30) d/dL Gamma Globulins 0.53 L (0.70-1.50) d/dL 02/02/23 02/02/23 02/02/23 Range/Units 04:35 04:35 04:35 WBC 24.1 H (3.8-10.6) k/uL RBC 3.23 L (4.30-5.90) m/uL Hgb 8.3 L (13.0-17.5) gm/dL Hct 26.2 L (39.0-53.0) % RDW 21.2 H (11.5-15.5) % Plt Count 78 L (150-450) k/uL Neutrophils # (Manual) 23.60 H (1.3-7.7) k/uL Lymphocytes # (Manual) 0.48 L (1.0-4.8) k/uL Nucleated RBCs 2 H (0-0) /100 WBC APTT (22.0-30.0) sec Chloride 116 H (98-107) mmol/L BUN 21 H (9-20) mg/dL Creatinine 0.41 L (0.66-1.25) mg/dL Glucose 128 H (74-99) mg/dL POC Glucose (mg/dL) (70-110) mg/dL Calcium 6.7 L (8.4-10.2) mg/dL Ionized Calcium Paula 4.4 L (4.5-5.3) mg/dL Qtode-3-Wfxoedftk (0.10-0.40) d/dL Fgcpq-2-Chhzwwmtr (0.60-1.00) d/dL Beta Globulins (0.60-1.30) d/dL Gamma Globulins (0.70-1.50) d/dL 02/02/23 02/02/23 Range/Units 04:35 06:01 WBC (3.8-10.6) k/uL RBC (4.30-5.90) m/uL Hgb (13.0-17.5) gm/dL Hct (39.0-53.0) % RDW (11.5-15.5) % Plt Count (150-450) k/uL Neutrophils # (Manual) (1.3-7.7) k/uL Lymphocytes # (Manual) (1.0-4.8) k/uL Nucleated RBCs (0-0) /100 WBC APTT 47.9 H (22.0-30.0) sec Chloride (98-107) mmol/L BUN (9-20) mg/dL Creatinine (0.66-1.25) mg/dL Glucose (74-99) mg/dL POC Glucose (mg/dL) 129 H (70-110) mg/dL Calcium (8.4-10.2) mg/dL Ionized Calcium Paula (4.5-5.3) mg/dL Axrxn-4-Laqaodrtf (0.10-0.40) d/dL Ckfwe-4-Mawtwbiyh (0.60-1.00) d/dL Beta Globulins (0.60-1.30) d/dL Gamma Globulins (0.70-1.50) d/dL Assessment and Plan Assessment: Status post exploratory laparotomy with resection, and jejunostomy, postoperative day #7. Routine postoperative ventilator management, S/P successful extubation 02/01/2023. Status post intubation and mechanical ventilation on 01/26/2023. Abdominal sepsis with septic shock, improved. Acute hypoxemic respiratory failure secondary to abdominal sepsis, and extensive bowel ischemia. Paroxysmal atrial fibrillation. Acute lactic acidosis secondary to sepsis. Benign essential hypertension. Ventral hernia. Acute kidney injury secondary to sepsis, hypertension, and acute tubular necrosis. Plan: Plan dated 01/31/2023. The patient's FiO2 was dropped from 35%, down to 30%. The patient remains on saline, amiodarone, and TPN at 60 mL an hour. Propofol has been discontinued. The patient will get a spontaneous breathing trial on pressure support of 5, and CPAP of 5. The patient is currently on Zosyn. Labs, x-rays, medications are reviewed. The patient is a DO NOT RESUSCITATE patient. We will clarify with the family, that should the patient be extubated, he will not be reintubated. We will continue to follow the patient and make recommendations along the way. Prognosis is certainly poor. Plan dated 02/01/2023. The patient will be extubated, today, and not be reintubated, should he develop respiratory failure. We confirmed that with the family. The patient's has been weaned off of norepinephrine, but continues on TPN, and heparin. The patient also continues on amiodarone. The patient continues on Zosyn and Eraxis. Labs, x-rays, and medications are reviewed. The patient is a DO NOT RESUSCITATE patient. Additional recommendations and suggestions are forthcoming. Prognosis is guarded. Plan dated 02/02/2023. The patient was successfully extubated, February 01. He's currently on between 2-3 L. Saturations are adequate. The patient is a bit lethargic and sleepy. He remains on saline, which is reduced down to 20 mL an hour. The patient's getting TPN at 45 mL an hour, amiodarone 0.5 mg/m, and heparin via weightbase protocol. Zosyn and hydrocortisone a discontinued. The patient has significant scrotal edema. We will continue to follow make recommendations and suggestions along the way. Prognosis is guarded. Time with Patient: Greater than 30
[2023-02-02] MEDS: MVI, ADULT NO.4 WITH VIT K 10 ML, TRACE (CONC-1ML/DOSE) 1 ML, SODIUM ACETATE 30 MEQ, CA... IV SCH ×7 (15:00)
[2023-02-02] MEDS: ANIDULAFUNGIN 100 MG in SODIUM CHLORIDE 0.9% 100 ML IVPB SCH (17:06)
[2023-02-02 18:19] LABS: Glucose,Whole Blood 82 mg/dL (70-110)
[2023-02-02] MEDS ORDERED: METOPROLOL TARTRATE 5 MG/5 ML VIAL IVP STA (21:58)
[2023-02-02 23:31] LABS: Glucose,Whole Blood 97 mg/dL (70-110)
[2023-02-03] MEDS: INSULIN ASPART (NovoLOG) 100 UNIT/ML VIAL SQ SCH ×4 (00:08→18:50)
[2023-02-03] MEDS: DILTIAZEM 125 MG in SODIUM CHLORIDE 0.9% 100 ML IV SCH ×2 (00:09→14:27)
[2023-02-03] MEDS: HYDROmorphone 1 MG/ML 1 ML SYRINGE IVP PRN ×2 (01:13→10:58)
[2023-02-03] MEDS ORDERED: AMIODARONE 450 MG in DEXTROSE 5% IN WATER 250 ML IV SCH ×2 (03:45)
[2023-02-03] MEDS: KETOROLAC 15 MG/ML 1 ML VIAL IVP PRN ×2 (05:02→18:50)
[2023-02-03] MEDS: PIPERACILLIN-TAZOBACTAM 3.375 GM in SODIUM CHLORIDE 0.9% 100 ML IVPB SCH ×3 (05:03→22:27)
[2023-02-03] MEDS: ARTIFICIAL TEARS-HYPROMELLOSE DROPS 15 ML BTL RIGHT EYE SCH ×2 (05:07→22:28)
[2023-02-03 05:34] LABS: Anisocytosis Moderate; Basophils # (A) 0.1 k/uL (0-0.2); Basophils % (A) 0 %; Eosinophils # (A) 0.1 k/uL (0-0.7); Eosinophils % (A) 1 %; HCT 31.1 % (39.0-53.0); HGB 9.4 gm/dL (13.0-17.5); Hypochromasia Marked; Lymphocytes # (A) 0.8 k/uL (1.0-4.8); Lymphocytes % (A) 3 %; MCH 24.7 pg (25.0-35.0); MCHC 30.1 g/dL (31.0-37.0); MCV 81.8 fL (80.0-100.0); Mean Platelet Volume 12.8; Microcytosis Slight; Monocytes # (A) 0.5 k/uL (0-1.0); Monocytes % (A) 2 %; Neutrophils # (A) 22.6 k/uL (1.3-7.7); Neutrophils % (A) 93 %; Poikilocytosis Slight; RDW 21.7 % (11.5-15.5); WBC 24.3 k/uL (3.8-10.6)
[2023-02-03 05:48] LABS: Platelet Count 107 k/uL (150-450)
[2023-02-03 05:52] LABS: African American GFR (CKD) >90 (>60 ml/min/1.73 sqM); Anion Gap 5 mmol/L; Blood Urea Nitrogen 20 mg/dL (9-20); Carbon Dioxide 25 mmol/L (22-30); Chloride 111 mmol/L (98-107); Glucose 99 mg/dL (74-99); Non-African American GFR(CKD) >90 (>60 ml/min/1.73 sqM); Phosphorus 2.8 mg/dL (2.5-4.5); Potassium 3.9 mmol/L (3.5-5.1); Sodium 141 mmol/L (137-145)
[2023-02-03 06:27] LABS: Glucose,Whole Blood 115 mg/dL (70-110)
--- NOTE | 2023-02-03 09:26 | P.PN ---
Subjective Progress Note Date: 02/03/23 The patient is a 67-year-old male who is demented to the hospital with abdominal discomfort. 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 The patient developed postoperative atrial fibrillation and therefore cardiology was consulted. He was started on amiodaro ne drip and subsequently converted to sinus mechanism. Postoperative complications include acute hypoxic respiratory failure and septic shock. The patient was successfully extubated, however has failed his swallow screen. He has no parental access and continues to have episodes of A. fib with RVR overnight. IV beta taylor did not improve his rates and IV Cardizem caused hypotension. Patient was interviewed and examined resting comfortably in bed. GENERAL: Ill-appearing, well-nourished and in no acute distress. NECK: Supple without JVD or thyromegaly. LUNGS: Breath sounds coarse to auscultation bilaterally. Respiration equal and unlabored. Rhonchi throughout HEART: Regular rate and rhythm without murmurs, rubs or gallops. S1 and S2 heard. EXTREMITIES: Normal range of motion, mild edema. No clubbing or cyanosis. Peripheral pulses intact and strong. TELEMETRY: Atrial fibrillation with heart rates in the 120s to 140s IMPRESSION: Atrial fibrillation with RVR, currently in sinus rhythm Acute ischemic bowel, status post resection Thrombocytopenia Anemia, blood loss secondary to surgery PLAN: Increase IV amiodarone to 1 mg Recommend NG tube placement and starting oral beta blockers Further recommendations replacement on clinical course I am dictating on behalf of Dr Jerson Serrano's history/physical and assessment/plan. Objective - Vital Signs Vital signs: Vital Signs Temp 97.2 F L 02/03/23 08:00 Pulse 140 H 02/03/23 08:00 Resp 22 02/03/23 08:00 BP 80/62 02/03/23 08:00 Pulse Ox 94 L 02/03/23 08:57 FiO2 30 02/01/23 10:15 Intake & Output 02/02/23 02/03/23 02/03/23 18:59 06:59 18:59 Intake Total 2354.768 1305.700 195 Output Total 855 1100 55 Balance 1499.768 205.700 140 Weight 87 kg 88 kg Intake: IV 1065 1055 195 Anidulafungin 100 mg In 100 Sodium Chloride 0.9% 100 ml @ 84 mls/hr IVPB Q24H [facility] Rx#:[id number] Mvi, Adult No.4 with Vit 495 495 135 K 10 ml Trace (Conc-1Ml/ Dose) 1 ml Sodium Acetate 30 meq Calcium Gluconate 1.25 gm Potassium Acetate 40 meq Potassium Phosphate 24 mmol In Amino Acid 5%-D15w 1,000 ml @ 45 mls/hr IV . [id number] [facility] Rx#:[id number] Piperacillin-Tazobactam 3 200 200 .375 gm In Sodium Chloride 0.9% 100 ml @ 25 mls/hr IVPB Q8H [facility] Rx#: [id number] Sodium Chloride 0.9% 1, 270 360 60 000 ml @ 20 mls/hr IV . Q24H [facility] Rx#:[id number] Intake, IV Titration 1289.768 250.700 Amount Amiodarone 450 mg In 250 Dextrose 5% in Water 250 ml @ 0.5 MG/MIN 16.667 mls/hr IV .Q15H [facility] Rx#: [id number] Diltiazem 125 mg In 22.167 Sodium Chloride 0.9% 100 ml @ 10 MG/HR 10 mls/hr IV .[id number] [facility] Rx#: [id number] Heparin Sod,Pork in 0.45% 130.768 228.533 NaCl 25,000 unit In 0.45 % NaCl 1 250ml.bag @ 12 UNITS/KG/HR 7.68 mls/hr IV .Q24H [facility] Rx#: [id number] Mvi, Adult No.4 with Vit 909 K 10 ml Trace (Conc-1Ml/ Dose) 1 ml Sodium Acetate 30 meq Calcium Gluconate 1.25 gm Potassium Acetate 40 meq Potassium Phosphate 24 mmol In Amino Acid 5%-D15w 1,000 ml @ 45 mls/hr IV . [id number] [facility] Rx#:[id number] Output: Gastric Drainage 260 Urine 595 650 55 Stool 450 Other: Voiding Method Indwelling Catheter Indwelling Catheter ABP, PAP, CO, CI - Last Documented Arterial Blood Pressure 112/78 - Labs CBC & Chem 7: 02/03/23 05:09 02/03/23 05:09 Labs: Abnormal Lab Results - Last 24 Hours (Table) 02/03/23 02/03/23 02/03/23 Range/Units 05:09 05:09 05:09 WBC 24.3 H (3.8-10.6) k/uL RBC 3.80 L (4.30-5.90) m/uL Hgb 9.4 L (13.0-17.5) gm/dL Hct 31.1 L (39.0-53.0) % MCH 24.7 L (25.0-35.0) pg MCHC 30.1 L (31.0-37.0) g/dL RDW 21.7 H (11.5-15.5) % Plt Count 107 L (150-450) k/uL Neutrophils # 22.6 H (1.3-7.7) k/uL Lymphocytes # 0.8 L (1.0-4.8) k/uL APTT 46.4 H (22.0-30.0) sec Chloride 111 H (98-107) mmol/L Creatinine 0.45 L (0.66-1.25) mg/dL POC Glucose (mg/dL) (70-110) mg/dL Calcium 7.0 L (8.4-10.2) mg/dL 02/03/23 Range/Units 06:26 WBC (3.8-10.6) k/uL RBC (4.30-5.90) m/uL Hgb (13.0-17.5) gm/dL Hct (39.0-53.0) % MCH (25.0-35.0) pg MCHC (31.0-37.0) g/dL RDW (11.5-15.5) % Plt Count (150-450) k/uL Neutrophils # (1.3-7.7) k/uL Lymphocytes # (1.0-4.8) k/uL APTT (22.0-30.0) sec Chloride (98-107) mmol/L Creatinine (0.66-1.25) mg/dL POC Glucose (mg/dL) 115 H (70-110) mg/dL Calcium (8.4-10.2) mg/dL
[2023-02-03] MEDS: ALBUMIN HUMAN 25% 50 ML in EMPTY BAG 1 BAG IVPB SCH ×2 (10:12→20:19)
[2023-02-03] MEDS: PANTOPRAZOLE 40 MG/10 ML VIAL IVP SCH ×2 (10:16→20:18)
[2023-02-03 11:40] LABS: Glucose,Whole Blood 119 mg/dL (70-110)
--- NOTE | 2023-02-03 12:16 | P.PN ---
Subjective Progress Note Date: 02/03/23 Principal diagnosis: Respiratory failure. Reevaluated today on 01/28/2023, patient remains in the ICU, intubated and mechanically ventilated. His assist-control rate is 16 tidal volume is 500 FiO2 40% PEEP of 5 ABG showed a pO2 of 129 pCO2 32 pH of 7.40 and I cut down his FiO2 to 35%. Patient is off propofol this morning and he is able to follow instructions, seems to comprehend, and seems to be relatively intact. However the patient is still requiring significant amount of drips/pressors he is on vasopressin at 0.04 units. Hour is also on norepinephrine at 19 mcg/m, Rodrigue- Synephrine has been discontinued. His IV fluid is down to 75 mL per hour and his bicarb is down to 25 ML per hour drip. Remains on amiodarone, patient is on 0.5 mg/m, and he is yet to be seen by cardiology today, seems to be in atrial flutter. WBC count today remains elevated at 24.4 hemoglobin is 9.4, lactic acid is 7.3, patient will receive another bolus of saline this morning. Elected lites are normal renal profile is improving bicarb is down to 17 and his creatinine is down to 1.37, liver enzymes remain elevated with AST of 591 and ALT of 449 chest x-ray showed minimal basilar atelectasis, no clear-cut evidence of infiltrates. Patient was reevaluated today on 01/29/2023, remains in the ICU, intubated and mechanically ventilated. Patient continues to have issues with atrial fibri llation and RVR, remains on amiodarone drip, he is receiving beta blockers by cardiology however that seems to be dropping his blood pressure, patient remains on relatively high dose of norepinephrine at 0.16 mcg/kg/m and today I suggested transitioning norepinephrine to Rodrigue-Synephrine since he was doing much better as far as tachycardia while he was on Rodrigue-Synephrine. We'll try to start Rodrigue-Syne phrine and gradually tapered down his norepinephrine hoping that his tachycardia would get better with Rodrigue-Synephrine on board. Remains on propofol at 7 mcg/kg/m remains on Lovenox remains on Zosyn remains on amiodarone at 0.5 mg/m. Patient did receive metoprolol 2.5 mg IV push slowly earlier. Ventilator smith he is on assist control rate of 16 tidal volume 500 FiO2 35% PEEP of 5 up gases showed a BNP O2 of 147 pCO2 42 pH of 7.41. Hence his FiO2 was brought down to 35% from 40% his sodium bicarb corrected nicely hence I'm stopping his sodium bicarb drip his urine output is about 100 mL/h, patient remains on IV fluid about 1 25 mL per hour. Not to mention the patient was started on TPN. Overall the patient remains critically ill, he is not ready for weaning mostly because of his cardiac issues and intermittent episodes of hypotension syndrome requiring significant amount of pressors re elevated today on 01/30, patient remains in the ICU, intubated and mechanically ventilated. He is on assist control rate of 16 tidal volume 500 FiO2 35% and PEEP of 5 ABG showed a pO2 of 102 pCO2 34 pH of 7.45 patient remains on amiodarone at 0.5 mg/m remains on TPN with lipids he is on Rodrigue-Syne phrine 1.2 mcg/kg/m propofol 10 mcg/kg/m IV fluid and 1 25 mL per hour remains on Solu-Cortef 50 mg IV push every 12 hours is also on Zosyn blood pressure is marginal in spite of Rodrigue-Synephrine hence I recommended that the patient gets a bolus of 0.9 normal saline today, and I actually plan to hold his propofol today and give the patient mental status assessment and possibly a weaning trial with pressure support and CPAP. Yesterday the patient was having significant tachycardia however the patient responded well to transitioning norepinephrine to Rodrigue-Synephrine and his tachycardia did resolve. He is now in sinus rhythm and his rate is in the 70s. I believe she count is 20.4 hemoglobin is 7.7 electrolytes are normal renal profile remains normal. A blood sugar is also normal, liver enzymes remains a bit elevated with ALT of 459 and AST of 422 bilirubin is 2.2. Progress note dated 01/31/2023. This is a 67-year-old male who was admitted to the hospital on January 26, with a history of small bowel obstruction, status post small bowel resection, and jejunostomy. The patient went to the operating room on January 26. He remains on mechanical ventilator. He is on volume assist control, rate 16, tidal volume 500, FiO2 35%, and PEEP of 5. Blood gases show a PaO2 of 125, pCO2 35, and pH is 7.42. The FiO2 was turned down from 35-30%. The patient's on saline at 25 mL an hour, amiodarone at 0.5 mg/m, Rodrigue-Synephrine, which is been recently discontinued, and TPN at 60 mL an hour. Propofol is also been weaned off. The patient is a DO NOT RESUSCITATE patient. Nonetheless, the patient will have a daily interruption of sedation, and a spontaneous breathing trial on a pressure support of 5 and CPAP of 5. The patient does continue on Zosyn. White count 17.4, hemoglobin 7.7, hematocrit 25, and platelet count 67,000. Sodium 139, potassium 3.7, chlorides 113, CO2 22, BUN 24, and creatinine 0.51. AST is 381. ALT is 425. Chest x-ray shows trace bilateral effusions. Progress note dated 02/01/2023. This is a 67-year-old male who was admitted to the hospital on January 26, with a history of small bowel obstruction, status post small bowel resection, and jejunostomy. The patient went to the operating room on January 26. He remains on mechanical ventilator. The patient is on the volume assist control, but will be placed on pressure support and CPAP, at 40%, and given a trial, of extubation. The patient continues on antibiotics, antifungals. We made sure with the family, that once the patient is extubated, he is not to be reintubated. The patient's getting TPN at 45 mL an hour, and saline at 1 25 mL an hour. Norepinephrine has been weaned off. The patient remains on heparin via weightbase protocol. In addition, the patient is on amiodarone at 0.5 mg/m. Propofol is off. Once extubated, and the NG tube will be discontinued as well. White count 17.6, hemoglobin 7.9, hematocrit 25.7, and platelet count 80,000. PO2 was 126, pCO2 was 37, and pH of 7.4. Sodium 138, potassium 4, chlorides 114, CO2 21, BUN 25, and creatinine 0.43. Chest x-ray shows a stable portable chest x-ray. Progress note dated 02/02/2023. This is a 67-year-old male who was admitted to the hospital on January 26, with a history of small bowel obstruction, status post small bowel resection, and jejunostomy. The patient went to the operating room on January 26. The patient was successfully extubated yesterday, February 01. The patient is currently on 2 L of oxygen. The patient's getting saline at 125 mL an hour. The patient's getting TPN at 45 mL an hour, and amiodarone at 0.5 mg/m. The patient remains on heparin via weightbase protocol. Zosyn is discontinued. Hydrocortisone is discontinued. White count 24.1, hemoglobin 8.3, hematocrit 26.2, and platelet count 78,000. PTT is 47.9. Sodium 140, potassium 4.1, chlorides 116, CO2 22, BUN 21, and creatinine 0.41. Chest x-ray shows persistent bilateral pleural effusions, and some left lower lobe infiltrate or atelectasis. Progress note dated 02/03/2023. 67-year-old male was admitted to the hospital on January 26, with a history of small bowel obstruction, status post small bowel resection, and jejunostomy. The patient went to the operating room on January 26. The patient was s uccessfully extubated, on February 01. Currently, the patient remains on oxygen, 3 L. He is getting saline at 20 mL an hour, and TPN at 45 mL an hour. He continues on IV heparin via weight aced protocol, and amiodarone 0.5 mg/m. He continues on Zosyn and Eraxis, as per infectious diseases. A PICC line will be placed. The patient will also get 12.5 g of 25% albumin, every 12 hours. Hopefully, this will improve his colloid osmotic pressure. White count 24.3, hemoglobin 9.4, hematocrit 31.1, with a platelet count of 107,000. Sodium 141, potassium 3.9, chlorides 111, CO2 25, BUN 20, and creatinine 0.45. There was no chest x-ray today. Objective - Vital Signs Vital signs: Vital Signs Temp 97.2 F L 02/03/23 08:00 Pulse 141 H 02/03/23 11:00 Resp 28 H 02/03/23 11:00 BP 108/72 02/03/23 11:00 Pulse Ox 94 L 02/03/23 11:00 FiO2 30 02/01/23 10:15 Intake & Output 02/02/23 02/03/23 02/03/23 18:59 06:59 18:59 Intake Total 2354.768 1305.700 325 Output Total 855 1100 125 Balance 1499.768 205.700 200 Weight 87 kg 88 kg Intake: IV 1065 1055 325 Anidulafungin 100 mg In 100 Sodium Chloride 0.9% 100 ml @ 84 mls/hr IVPB Q24H [facility] Rx#:[id number] Mvi, Adult No.4 with Vit 495 495 225 K 10 ml Trace (Conc-1Ml/ Dose) 1 ml Sodium Acetate 30 meq Calcium Gluconate 1.25 gm Potassium Acetate 40 meq Potassium Phosphate 24 mmol In Amino Acid 5%-D15w 1,000 ml @ 45 mls/hr IV . [id number] [facility] Rx#:[id number] Piperacillin-Tazobactam 3 200 200 .375 gm In Sodium Chloride 0.9% 100 ml @ 25 mls/hr IVPB Q8H [facility] Rx#: [id number] Sodium Chloride 0.9% 1, 270 360 100 000 ml @ 20 mls/hr IV . Q24H [facility] Rx#:[id number] Intake, IV Titration 1289.768 250.700 Amount Amiodarone 450 mg In 250 Dextrose 5% in Water 250 ml @ 0.5 MG/MIN 16.667 mls/hr IV .Q15H [facility] Rx#: [id number] Diltiazem 125 mg In 22.167 Sodium Chloride 0.9% 100 ml @ 10 MG/HR 10 mls/hr IV .[id number] [facility] Rx#: [id number] Heparin Sod,Pork in 0.45% 130.768 228.533 NaCl 25,000 unit In 0.45 % NaCl 1 250ml.bag @ 12 UNITS/KG/HR 7.68 mls/hr IV .Q24H [facility] Rx#: [id number] Mvi, Adult No.4 with Vit 909 K 10 ml Trace (Conc-1Ml/ Dose) 1 ml Sodium Acetate 30 meq Calcium Gluconate 1.25 gm Potassium Acetate 40 meq Potassium Phosphate 24 mmol In Amino Acid 5%-D15w 1,000 ml @ 45 mls/hr IV . [id number] [facility] Rx#:[id number] Output: Gastric Drainage 260 Urine 595 650 125 Stool 450 Other: Voiding Method Indwelling Catheter Indwelling Catheter ABP, PAP, CO, CI - Last Documented Arterial Blood Pressure 112/78 - Exam No acute distress, extubated, awake and alert. Currently on 3 L of oxygen. HEENT examination is grossly unremarkable. Neck supple. Full range of motion. No adenopathy thyromegaly or neck vein distention. Cardiovascular examination reveals an irregular rhythm and rate. S1-S2 normal. No S3 or S4. No discernible murmur noted. Heart sounds are distant. Heart rate is 141 bpm. Lungs reveal scattered bilateral rhonchi. No wheezes or crackles. Breath sounds are equal bilaterally. 3 L saturation is 94 %. Abdomen soft bowel sounds are heard. No masses or tenderness. The patient has significant scrotal edema. Extremities are intact. No cyanosis clubbing or edema. Skin is without rash or lesion. Neurologic examination is brief but nonfocal. - Labs CBC & Chem 7: 02/03/23 05:09 02/03/23 05:09 Labs: Abnormal Lab Results - Last 24 Hours (Table) 02/03/23 02/03/23 02/03/23 Range/Units 05:09 05:09 05:09 WBC 24.3 H (3.8-10.6) k/uL RBC 3.80 L (4.30-5.90) m/uL Hgb 9.4 L (13.0-17.5) gm/dL Hct 31.1 L (39.0-53.0) % MCH 24.7 L (25.0-35.0) pg MCHC 30.1 L (31.0-37.0) g/dL RDW 21.7 H (11.5-15.5) % Plt Count 107 L (150-450) k/uL Neutrophils # 22.6 H (1.3-7.7) k/uL Lymphocytes # 0.8 L (1.0-4.8) k/uL APTT 46.4 H (22.0-30.0) sec Chloride 111 H (98-107) mmol/L Creatinine 0.45 L (0.66-1.25) mg/dL POC Glucose (mg/dL) (70-110) mg/dL Calcium 7.0 L (8.4-10.2) mg/dL 02/03/23 02/03/23 Range/Units 06:26 11:37 WBC (3.8-10.6) k/uL RBC (4.30-5.90) m/uL Hgb (13.0-17.5) gm/dL Hct (39.0-53.0) % MCH (25.0-35.0) pg MCHC (31.0-37.0) g/dL RDW (11.5-15.5) % Plt Count (150-450) k/uL Neutrophils # (1.3-7.7) k/uL Lymphocytes # (1.0-4.8) k/uL APTT (22.0-30.0) sec Chloride (98-107) mmol/L Creatinine (0.66-1.25) mg/dL POC Glucose (mg/dL) 115 H 119 H (70-110) mg/dL Calcium (8.4-10.2) mg/dL Assessment and Plan Assessment: Status post exploratory laparotomy with resection, and jejunostomy, postoperative day #8. Routine postoperative ventilator management, S/P successful extubation 02/01/2023. Status post intubation and mechanical ventilation on 01/26/2023. Abdominal sepsis with septic shock, improved. Acute hypoxemic respiratory failure secondary to abdominal sepsis, and extensive bowel ischemia. Paroxysmal atrial fibrillation. Acute lactic acidosis secondary to sepsis. Benign essential hypertension. Ventral hernia. Acute kidney injury secondary to sepsis, hypertension, and acute tubular necrosis. Plan: Plan dated 01/31/2023. The patient's FiO2 was dropped from 35%, down to 30%. The patient remains on saline, amiodarone, and TPN at 60 mL an hour. Propofol has been discontinued. The patient will get a spontaneous breathing trial on pressure support of 5, and CPAP of 5. The patient is currently on Zosyn. Labs, x-rays, medications are reviewed. The patient is a DO NOT RESUSCITATE patient. We will clarify with the family, that should the patient be extubated, he will not be reintubated. We will continue to follow the patient and make recommendations along the way. Prognosis is certainly poor. Plan dated 02/01/2023. The patient will be extubated, today, and not be reintubated, should he develop respiratory failure. We confirmed that with the family. The patient's has been weaned off of norepinephrine, but continues on TPN, and heparin. The patient also continues on amiodarone. The patient continues on Zosyn and Eraxis. Labs, x-rays, and medications are reviewed. The patient is a DO NOT RESUSCITATE patient. Additional recommendations and suggestions are forthcoming. Prognosis is guarded. Plan dated 02/02/2023. The patient was successfully extubated, February 01. He's currently on between 2-3 L. Saturations are adequate. The patient is a bit lethargic and sleepy. He remains on saline, which is reduced down to 20 mL an hour. The patient's getting TPN at 45 mL an hour, amiodarone 0.5 mg/m, and heparin via weightbase protocol. Zosyn and hydrocortisone a discontinued. The patient has significant scrotal edema. We will continue to follow make recommendations and suggestions along the way. Prognosis is guarded. Plan dated 02/03/2023. The patient was successfully extubated on February 01. He is on oxygen at 3 L. Unfortunately, the patient remains on amiodarone 0.5 mg/m. In addition, the patient's on TPN, and IV heparin. The patient has significant diffuse edema and anasarca, or edema. We added 12.5 g of 25% albumin, twice a day. A PICC line will be placed. The patient continues on Zosyn and he Eraxis. Labs, x-rays, and medications are reviewed. The patient's overall prognosis remains guarded. Time with Patient: Greater than 30
--- NOTE | 2023-02-03 12:52 | P.PN ---
Subjective Progress Note Date: 02/03/23 CHIEF COMPLAINT: Abdominal pain HISTORY OF PRESENT ILLNESS: Patient is postop day #8 status post exploratory laparotomy with small bowel resection and jejunostomy for ischemic small intestine and intra-abdominal adhesions. Patient appears more comfortable. Pain is controlled. Denies any nausea or vomiting. Patient evaluated by speech therapy and recommended to keep nothing by mouth as of yesterday. He did have a low-grade temp of 100.2 during the night he has been having episodes of A. fib RVR and is followed by cardiology. WBC 20 4.3HB is up from 8.3-9.4 platelets trending up 107 sodium is 141 potassium is 3.9 creatinine 0.45 PHYSICAL EXAM: VITAL SIGNS: Reviewed. GENERAL: Well-developed in no acute distress. ABDOMEN: Soft. Nondistended. Midline incision clean dry and intact Jejuno stomy yellowish brown output with small pieces of stool. Stoma pink NEUROLOGIC: intubated ASSESSMENT: 1. Ischemic small intestine and intra-abdominal adhesions status post exploratory laparotomy with small bowel resection and jejunostomy PLAN: -PICC line ordered for intermediate TPN -Recommend no oral medications because patient will have difficulty absorbing medications since most of his small bowel has been resected -Continue ICU management -Continue supportive care -Patient will require lifelong TPN -Continue TPN for nutrition support Physician Feed Preparation Operator note has been reviewed by physician. Signing provider agrees with the documented findings, assessment, and plan of care. I have personally seen and examined the patient, reviewed the PROGRAM ADMINISTRATOR /PAs history, exam and MDM and agree with the assessment and plan as written. Based on total visit time, I have performed more than 50% of the visit. As above: Patient says pain is slightly better today. White blood cell count about the same bandemia noted on yesterday's differential. Remains tachycardic. Mild tenderness on exam. Incision clean dry, ostomy pink. Reviewed notes. Proceed with CT abdomen and pelvis tomorrow without contrast. PICC line tomorrow. Objective - Vital Signs Vital signs: Vital Signs Temp 97.2 F L 02/03/23 08:00 Pulse 144 H 02/03/23 10:00 Resp 23 02/03/23 10:00 BP 110/84 02/03/23 10:00 Pulse Ox 94 L 02/03/23 10:00 FiO2 30 02/01/23 10:15 Intake & Output 02/02/23 02/03/23 02/03/23 18:59 06:59 18:59 Intake Total 2354.768 1305.700 260 Output Total 855 1100 65 Balance 1499.768 205.700 195 Weight 87 kg 88 kg Intake: IV 1065 1055 260 Anidulafungin 100 mg In 100 Sodium Chloride 0.9% 100 ml @ 84 mls/hr IVPB Q24H [facility] Rx#:[id number] Mvi, Adult No.4 with Vit 495 495 180 K 10 ml Trace (Conc-1Ml/ Dose) 1 ml Sodium Acetate 30 meq Calcium Gluconate 1.25 gm Potassium Acetate 40 meq Potassium Phosphate 24 mmol In Amino Acid 5%-D15w 1,000 ml @ 45 mls/hr IV . [id number] [facility] Rx#:[id number] Piperacillin-Tazobactam 3 200 200 .375 gm In Sodium Chloride 0.9% 100 ml @ 25 mls/hr IVPB Q8H [facility] Rx#: [id number] Sodium Chloride 0.9% 1, 270 360 80 000 ml @ 20 mls/hr IV . Q24H [facility] Rx#:[id number] Intake, IV Titration 1289.768 250.700 Amount Amiodarone 450 mg In 250 Dextrose 5% in Water 250 ml @ 0.5 MG/MIN 16.667 mls/hr IV .Q15H [facility] Rx#: [id number] Diltiazem 125 mg In 22.167 Sodium Chloride 0.9% 100 ml @ 10 MG/HR 10 mls/hr IV .[id number] [facility] Rx#: [id number] Heparin Sod,Pork in 0.45% 130.768 228.533 NaCl 25,000 unit In 0.45 % NaCl 1 250ml.bag @ 12 UNITS/KG/HR 7.68 mls/hr IV .Q24H [facility] Rx#: [id number] Mvi, Adult No.4 with Vit 909 K 10 ml Trace (Conc-1Ml/ Dose) 1 ml Sodium Acetate 30 meq Calcium Gluconate 1.25 gm Potassium Acetate 40 meq Potassium Phosphate 24 mmol In Amino Acid 5%-D15w 1,000 ml @ 45 mls/hr IV . [id number] [facility] Rx#:[id number] Output: Gastric Drainage 260 Urine 595 650 65 Stool 450 Other: Voiding Method Indwelling Catheter Indwelling Catheter ABP, PAP, CO, CI - Last Documented Arterial Blood Pressure 112/78 - Labs CBC & Chem 7: 02/03/23 05:09 02/03/23 05:09 Labs: Abnormal Lab Results - Last 24 Hours (Table) 02/03/23 02/03/23 02/03/23 Range/Units 05:09 05:09 05:09 WBC 24.3 H (3.8-10.6) k/uL RBC 3.80 L (4.30-5.90) m/uL Hgb 9.4 L (13.0-17.5) gm/dL Hct 31.1 L (39.0-53.0) % MCH 24.7 L (25.0-35.0) pg MCHC 30.1 L (31.0-37.0) g/dL RDW 21.7 H (11.5-15.5) % Plt Count 107 L (150-450) k/uL Neutrophils # 22.6 H (1.3-7.7) k/uL Lymphocytes # 0.8 L (1.0-4.8) k/uL APTT 46.4 H (22.0-30.0) sec Chloride 111 H (98-107) mmol/L Creatinine 0.45 L (0.66-1.25) mg/dL POC Glucose (mg/dL) (70-110) mg/dL Calcium 7.0 L (8.4-10.2) mg/dL 02/03/23 Range/Units 06:26 WBC (3.8-10.6) k/uL RBC (4.30-5.90) m/uL Hgb (13.0-17.5) gm/dL Hct (39.0-53.0) % MCH (25.0-35.0) pg MCHC (31.0-37.0) g/dL RDW (11.5-15.5) % Plt Count (150-450) k/uL Neutrophils # (1.3-7.7) k/uL Lymphocytes # (1.0-4.8) k/uL APTT (22.0-30.0) sec Chloride (98-107) mmol/L Creatinine (0.66-1.25) mg/dL POC Glucose (mg/dL) 115 H (70-110) mg/dL Calcium (8.4-10.2) mg/dL
--- NOTE | 2023-02-03 14:27 | P.PN ---
Subjective Progress Note Date: 02/03/23 Principal diagnosis: Sepsis/ischemic small intestine Patient is a 67-year-old male with a past medical history negative for atrial fibrillation diabetes mellitus hypertension PE seizure disorder and dementia patient was brought into the hospital for evaluation of a syncopal episode , patient did have a CT abdominal pelvis suggestive of small bowel ischemia status post laparotomy patient was noticed to have ischemic small bowel intestine intra-abdominal adhesion requiring small bowel resection and jejunostomy and admission to the ICU. On today's evaluation of that is 02/03/2023, the patient remains to be afebrile, the patient is hemodynamically stable , the patient is breathing comfortably on 3 L nasal cannula oxygen patient is more awake but overall not a good historian no vomiting or any other changes reported by the nursing staff Patient white count is 24.3, creatinine 0.45, sputum with vinay blood culture negative Objective - Vital Signs Vital signs: Vital Signs Temp 97.2 F L 02/03/23 08:00 Pulse 141 H 02/03/23 11:00 Resp 28 H 02/03/23 11:00 BP 108/72 02/03/23 11:00 Pulse Ox 94 L 02/03/23 11:00 FiO2 30 02/01/23 10:15 Intake & Output 02/02/23 02/03/23 02/03/23 18:59 06:59 18:59 Intake Total 2354.768 1305.700 505 Output Total 855 1100 220 Balance 1499.768 205.700 285 Weight 87 kg 88 kg Intake: IV 1065 1055 505 Albumin Human 25% 50 ml 50 In Empty Bag 1 bag @ 50 mls/hr IVPB BID [facility] Rx#: [id number] Anidulafungin 100 mg In 100 Sodium Chloride 0.9% 100 ml @ 84 mls/hr IVPB Q24H [facility] Rx#:[id number] Mvi, Adult No.4 with Vit 495 495 315 K 10 ml Trace (Conc-1Ml/ Dose) 1 ml Sodium Acetate 30 meq Calcium Gluconate 1.25 gm Potassium Acetate 40 meq Potassium Phosphate 24 mmol In Amino Acid 5%-D15w 1,000 ml @ 45 mls/hr IV . [id number] [facility] Rx#:[id number] Piperacillin-Tazobactam 3 200 200 .375 gm In Sodium Chloride 0.9% 100 ml @ 25 mls/hr IVPB Q8H [facility] Rx#: [id number] Sodium Chloride 0.9% 1, 270 360 140 000 ml @ 20 mls/hr IV . Q24H [facility] Rx#:[id number] Intake, IV Titration 1289.768 250.700 Amount Amiodarone 450 mg In 250 Dextrose 5% in Water 250 ml @ 0.5 MG/MIN 16.667 mls/hr IV .Q15H [facility] Rx#: [id number] Diltiazem 125 mg In 22.167 Sodium Chloride 0.9% 100 ml @ 10 MG/HR 10 mls/hr IV .[id number] [facility] Rx#: [id number] Heparin Sod,Pork in 0.45% 130.768 228.533 NaCl 25,000 unit In 0.45 % NaCl 1 250ml.bag @ 12 UNITS/KG/HR 7.68 mls/hr IV .Q24H [facility] Rx#: [id number] Mvi, Adult No.4 with Vit 909 K 10 ml Trace (Conc-1Ml/ Dose) 1 ml Sodium Acetate 30 meq Calcium Gluconate 1.25 gm Potassium Acetate 40 meq Potassium Phosphate 24 mmol In Amino Acid 5%-D15w 1,000 ml @ 45 mls/hr IV . [id number] [facility] Rx#:[id number] Output: Gastric Drainage 260 Urine 595 650 220 Stool 450 Other: Voiding Method Indwelling Catheter Indwelling Catheter ABP, PAP, CO, CI - Last Documented Arterial Blood Pressure 112/78 - Exam GENERAL DESCRIPTION: An elderly male lying in bed in no distress RESPIRATORY SYSTEM: Unlabored breathing , decreased breath sounds at bases HEART: S1 S2 regular rate and rhythm , ABDOMEN: Soft , midline incision is intact EXTREMITIES: No edema feet - Labs CBC & Chem 7: 02/03/23 05:09 02/03/23 05:09 Labs: Abnormal Lab Results - Last 24 Hours (Table) 02/03/23 02/03/23 02/03/23 Range/Units 05:09 05:09 05:09 WBC 24.3 H (3.8-10.6) k/uL RBC 3.80 L (4.30-5.90) m/uL Hgb 9.4 L (13.0-17.5) gm/dL Hct 31.1 L (39.0-53.0) % MCH 24.7 L (25.0-35.0) pg MCHC 30.1 L (31.0-37.0) g/dL RDW 21.7 H (11.5-15.5) % Plt Count 107 L (150-450) k/uL Neutrophils # 22.6 H (1.3-7.7) k/uL Lymphocytes # 0.8 L (1.0-4.8) k/uL APTT 46.4 H (22.0-30.0) sec Chloride 111 H (98-107) mmol/L Creatinine 0.45 L (0.66-1.25) mg/dL POC Glucose (mg/dL) (70-110) mg/dL Calcium 7.0 L (8.4-10.2) mg/dL 02/03/23 02/03/23 Range/Units 06:26 11:37 WBC (3.8-10.6) k/uL RBC (4.30-5.90) m/uL Hgb (13.0-17.5) gm/dL Hct (39.0-53.0) % MCH (25.0-35.0) pg MCHC (31.0-37.0) g/dL RDW (11.5-15.5) % Plt Count (150-450) k/uL Neutrophils # (1.3-7.7) k/uL Lymphocytes # (1.0-4.8) k/uL APTT (22.0-30.0) sec Chloride (98-107) mmol/L Creatinine (0.66-1.25) mg/dL POC Glucose (mg/dL) 115 H 119 H (70-110) mg/dL Calcium (8.4-10.2) mg/dL Assessment and Plan (1) Ischemic bowel disease Current Visit: Yes Status: Acute Priority: High Code(s): K55.9 - VASCULAR DISORDER OF INTESTINE, UNSPECIFIED SNOMED Code(s): 71494679 (2) Sepsis Current Visit: Yes Status: Acute Priority: High Code(s): A41.9 - SEPSIS, UNSPECIFIED ORGANISM SNOMED Code(s): 91416007 Plan: 1patient present to hospital with sepsis/septic shock in this patient with hypotension fever elevated white count tachycardia source is abdominal pain in this patient noticed to have small bowel ischemia s/p laparotomy with small bowel resection and jejunostomy, we will need to cover for the enteric gram- negative the likely pathogen for this episode of sepsis/septic shock. 2patient afebrile , however the patient did have persistently elevated white count patient will benefit from a CT of abdominal pelvis 3-patient to continue with Zosyn and Eraxis and monitor clinical course closely Dictation was produced using [employer] dictation software. please excuse any grammatical, word or spelling errors. Time with Patient: Less than 30
[2023-02-03] MEDS ORDERED: AMIODARONE 360 MG in DEXTROSE 5% IN WATER 200 ML IV ONE ×2 (14:28)
[2023-02-03] MEDS: AMIODARONE 360 MG in DEXTROSE 5% IN WATER 200 ML IV SCH ×4 (15:09→20:27)
[2023-02-03] MEDS: MVI, ADULT NO.4 WITH VIT K 10 ML, TRACE (CONC-1ML/DOSE) 1 ML, SODIUM ACETATE 30 MEQ, CA... IV SCH ×7 (15:41)
--- NOTE | 2023-02-03 16:48 | P.PN ---
Subjective Progress Note Date: 02/03/23 Patient is a 67 -year-old male with history of high blood pressure, atrial fibrillation, diabetes mellitus type 2, obstructive uropathy, and long-standing ventral hernia who presented to the ER from his custodial due to syncopal episode. In the ER he underwent extensive evaluation. On arrival was vital signs were remarkable for blood pressure 67/33 and a pulse of 60. Laboratory analysis was reviewed including a CBC, coagulation studies, CMP, liver function, lactic acid, and troponin which were remarkable for white blood cell count 15, hemoglobin 8.7, hematocrit 29.9, INR 1.6, carbon dioxide 14, anion gap 19, lactic acid 9.6. Influenza A/B/RSV/COVID-[address] abdomen and pelvis completed which showed small bowel ischemia versus obstruction, ascites, cholelithiasis. In the ER he was given 2 L normal saline. He remained hypotensive and was started on norepinephrine and Zosyn. Arrangements were made for admission to the ICU. He was seen by surgery, he was administered a dose of K Centra and underwent urgent exploratory laparotomy with small bowel resection and jejunostomy. The majority of the small bowel was resected with approximately 1 foot of jejunum that was viable, and duodenum was also viable. 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 Postoperatively he required 4 untis of pRBC. The night after surgery the patient's vasopressor requirements increased and he was subsequently started on phenylephrine and vasopressin. His cortisol was 16 which is not adequate for his state of shock and he was started on cortef. On 01/28 he went into A. fib with RVR necessitating an amiodarone drip. He vaso and phe nylephrine were able to be weaned off by the morning of 01/29. He struggled with sinus tachycardia on 01/29 and vasopressors were adjusted. 02/01 Patient was seen and examined. Extubated this morning. CBC shows WBC count of 17.6, Hg 7.9, Plt 80. Coag panel APTT 34.5. ABG pH 7.4, pCO2 37. BMP Cl 114, bicab 21, BUN 25, Cr 0.43, glucose 141, Ca 6.6. Phos 2.5. Mag 2.3. Amiodarone 0.5 mg/min. Antibiotics include Anidulafungin and Zosyn. Currently on TPN. Heparin drip at 21 units/kg/hr. Solucortef at 50 mg IV BID. Levophed discontinued at this time. NS at 125 cc/hr. CXR shows bibasilar opacities. 02/02 Patient was seen and examined. Patient reports uncontrolled pain in his abdomen. Dilaudid increased from 0.5 to 1mg and Toradol added. CBC shows WBC count of 24.1, Hg 8.3, Plt 78. Coag panel APTT 47.9. BMP Cl 112, BUN 21, Cr 0.42, glucose 128, Ca 6.7. Phos 2.6. Mag 2.1. Ionized Ca 4.4. Recieving Ca gluconate 1g IV today. Amiodarone discontinued. Antibiotics include Anidulafungin and Zosyn. Currently on TPN. Heparin drip at 25 units/kg/hr. Solucortef at 50 mg IV BID. Levophed weaned off yesterday. NS at 20 cc/hr. CXR shows persistent bibasilar opacities. 02/03 Patient was seen and examined. He remains tachycardic with HR in the 130s. Amiodarone drip increased to 1. Attempt made to try Cardizem and Metoprolol but discontinued due to low BP. Plans for albumin 25% x 2 today. CBC shows WBC count of 24.3, Hg 9.4, Plt 107. Coag panel APTT 46.4. BMP Cl 111, Cr 0.45, Ca 7. Phos 2.8. Mag 2. Vital signs reviewed General: Ill appearing, mild distress, appears at stated age Cardiovascular: S1S2 reg, no murmur Lungs: Course bs bilateral, no rhonchi, no rales , no accessory muscle use Abdominal: soft, nontender to palpation, no guarding, no appreciable organomegaly, +ostomy, + midline dressing without soak through Ext: + gross muscle atrophy, no edema b/l lower extremities, no contractures Neuro: no FND Psych: Awake, can follow commands Ischemic colitis s/p small bowel resection with jejunostomy, will result in short gut syndrome requiring TPN Acute hypoxic respiratory failure Septic shock due to ischemic bowel Shock liver Cardiomyopathy with EF 35-40%, suspect sepsis induced Hypocalcemia Atrial fibrillation with RVR Anemia, due to acute blood loss s/p 4 units pRBC Coagulopathy Thrombocytopenia Resolved: Hypophosphatemia, Lactic acidosis, OLE Chronic: Hypertension, Cirrhosis, Constipation, Gastric ulcer, Encephalopathy Based on my assessment of this patient, this patient meets a high complexity level of care. Patient has an acute diagnosis of septic shock secondary to ischemic colitis s/p small bowel resection with jejunostomy complicated with ischemic cardiomyopathy and acute blood loss anemia requring 4 unit PRBC that poses a threat to life or bodily function. Ischemic colitis: s/p small bowel resection with jejunostomy 01/26. 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 Protonix 40 mg IV BID. Continue Zosyn. Acute hypoxic respiratory failure: CXR as above. Extubated 02/01. He is not to be re-intubated. Septic shock due to ischemic bowel: Blood Cx negative. Sputum Cx vinay albicans. Currently on Zosyn (D8) and Anidulafungin (D4). Weaned off Levophed 02/01. ID on board. Shock liver: Trend AST/ALT Cardiomyopathy with EF 35-40%, suspect sepsis induced Hypocalcemia: On TPN. Hypophosphatemia resolved. Given 1g IV Ca gluconate today. Atrial fibrillation with RVR: Currently in sinus. Heparin drip. 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 Anemia, due to acute blood loss s/p 4 units pRBC: Stable. Transfuse if Hg < 7.0. Hematology recommends anticoagulation as long his platelets remained greater than 50,000 and there is no gross bleeding. Coagulopathy: APTT montoring while on Heparin drip. Thrombocytopenia: Continue to monitor while on Heparin. Heparin drip for DVT prophylaxis. NO CODE. I have reviewed the following clinical science consultant notes: I have reviewed the results of the following tests: CBC, Coag panel, BMP, Phos, Mag. I have ordered the following tests: Agree with CBC, BMP, Phos, Mag. I have discussed the care of this patient with the following independent historian: Discussed with RN. I have independently interpreted the following test below: I have discussed the management of this patient with the following physician: This patient has a high risk of morbidity due to the following reasons: Patient is currently on heparin drip that requires intensive monitoring for APTT for toxicity. Objective - Vital Signs Vital signs: Vital Signs Temp 97.2 F L 02/03/23 08:00 Pulse 137 H 02/03/23 13:00 Resp 19 02/03/23 13:00 BP 104/73 02/03/23 13:00 Pulse Ox 96 02/03/23 13:00 FiO2 30 02/01/23 10:15 Intake & Output 02/02/23 02/03/23 02/03/23 18:59 06:59 18:59 Intake Total 2354.768 1333.953 0199.5 Output Total 855 1100 220 Balance 1499.768 448.380 8250.5 Weight 87 kg 88 kg 88 kg Intake: IV 1065 1055 505 Albumin Human 25% 50 ml 50 In Empty Bag 1 bag @ 50 mls/hr IVPB BID [facility] Rx#: [id number] Anidulafungin 100 mg In 100 Sodium Chloride 0.9% 100 ml @ 84 mls/hr IVPB Q24H [facility] Rx#:[id number] Mvi, Adult No.4 with Vit 495 495 315 K 10 ml Trace (Conc-1Ml/ Dose) 1 ml Sodium Acetate 30 meq Calcium Gluconate 1.25 gm Potassium Acetate 40 meq Potassium Phosphate 24 mmol In Amino Acid 5%-D15w 1,000 ml @ 45 mls/hr IV . [id number] [facility] Rx#:[id number] Piperacillin-Tazobactam 3 200 200 .375 gm In Sodium Chloride 0.9% 100 ml @ 25 mls/hr IVPB Q8H [facility] Rx#: [id number] Sodium Chloride 0.9% 1, 270 360 140 000 ml @ 20 mls/hr IV . Q24H [facility] Rx#:[id number] Intake, IV Titration 1289.768 539.424 4960.5 Amount Amiodarone 450 mg In 250 Dextrose 5% in Water 250 ml @ 0.5 MG/MIN 16.667 mls/hr IV .Q15H [facility] Rx#: [id number] Diltiazem 125 mg In 22.167 Sodium Chloride 0.9% 100 ml @ 10 MG/HR 10 mls/hr IV .[id number] [facility] Rx#: [id number] Heparin Sod,Pork in 0.45% 130.768 228.533 NaCl 25,000 unit In 0.45 % NaCl 1 250ml.bag @ 12 UNITS/KG/HR 7.68 mls/hr IV .Q24H [facility] Rx#: [id number] Mvi, Adult No.4 with Vit 909 1066.5 K 10 ml Trace (Conc-1Ml/ Dose) 1 ml Sodium Acetate 30 meq Calcium Gluconate 1.25 gm Potassium Acetate 40 meq Potassium Phosphate 24 mmol In Amino Acid 5%-D15w 1,000 ml @ 45 mls/hr IV . [id number] [facility] Rx#:[id number] Output: Gastric Drainage 260 Urine 595 650 220 Stool 450 Other: Voiding Method Indwelling Catheter Indwelling Catheter Indwelling Catheter ABP, PAP, CO, CI - Last Documented Arterial Blood Pressure 112/78 - Labs CBC & Chem 7: 02/03/23 05:09 02/03/23 05:09 Labs: Abnormal Lab Results - Last 24 Hours (Table) 02/03/23 02/03/23 02/03/23 Range/Units 05:09 05:09 05:09 WBC 24.3 H (3.8-10.6) k/uL RBC 3.80 L (4.30-5.90) m/uL Hgb 9.4 L (13.0-17.5) gm/dL Hct 31.1 L (39.0-53.0) % MCH 24.7 L (25.0-35.0) pg MCHC 30.1 L (31.0-37.0) g/dL RDW 21.7 H (11.5-15.5) % Plt Count 107 L (150-450) k/uL Neutrophils # 22.6 H (1.3-7.7) k/uL Lymphocytes # 0.8 L (1.0-4.8) k/uL APTT 46.4 H (22.0-30.0) sec Chloride 111 H (98-107) mmol/L Creatinine 0.45 L (0.66-1.25) mg/dL POC Glucose (mg/dL) (70-110) mg/dL Calcium 7.0 L (8.4-10.2) mg/dL 02/03/23 02/03/23 Range/Units 06:26 11:37 WBC (3.8-10.6) k/uL RBC (4.30-5.90) m/uL Hgb (13.0-17.5) gm/dL Hct (39.0-53.0) % MCH (25.0-35.0) pg MCHC (31.0-37.0) g/dL RDW (11.5-15.5) % Plt Count (150-450) k/uL Neutrophils # (1.3-7.7) k/uL Lymphocytes # (1.0-4.8) k/uL APTT (22.0-30.0) sec Chloride (98-107) mmol/L Creatinine (0.66-1.25) mg/dL POC Glucose (mg/dL) 115 H 119 H (70-110) mg/dL Calcium (8.4-10.2) mg/dL
[2023-02-03 17:39] LABS: Glucose,Whole Blood 152 mg/dL (70-110)
[2023-02-03] MEDS: ANIDULAFUNGIN 100 MG in SODIUM CHLORIDE 0.9% 100 ML IVPB SCH (18:49)
[2023-02-03] MEDS: SODIUM CHLORIDE 0.9% 1,000 ML IV SCH (20:39)
[2023-02-04 00:22] LABS: Glucose,Whole Blood 141 mg/dL (70-110)
[2023-02-04] MEDS: KETOROLAC 15 MG/ML 1 ML VIAL IVP PRN ×3 (01:15→21:49)
[2023-02-04] MEDS: DILTIAZEM 125 MG in SODIUM CHLORIDE 0.9% 100 ML IV SCH ×2 (01:24→14:20)
[2023-02-04] MEDS: INSULIN ASPART (NovoLOG) 100 UNIT/ML VIAL SQ SCH ×4 (01:24→17:22)
[2023-02-04] MEDS: AMIODARONE 360 MG in DEXTROSE 5% IN WATER 200 ML IV SCH ×8 (02:20→20:01)
[2023-02-04] MEDS: HEPARIN SOD,PORK IN 0.45% NACL 25,000 UNIT in 0.45% NACL 1 250ML.BAG IV SCH ×2 (02:21→21:45)
[2023-02-04 04:49] LABS: ALT 89 U/L (4-49); AST 73 U/L (17-59); African American GFR (CKD) >90 (>60 ml/min/1.73 sqM); Albumin 1.5 g/dL (3.5-5.0); Alkaline Phosphatase 61 U/L (38-126); Anion Gap 2 mmol/L; Blood Urea Nitrogen 26 mg/dL (9-20); Calcium 6.9 mg/dL (8.4-10.2); Carbon Dioxide 25 mmol/L (22-30); Chloride 114 mmol/L (98-107); Glucose 119 mg/dL (74-99); Non-African American GFR(CKD) >90 (>60 ml/min/1.73 sqM); Phosphorus 2.9 mg/dL (2.5-4.5); Potassium 4.1 mmol/L (3.5-5.1); Sodium 141 mmol/L (137-145); Total Bilirubin 8.5 mg/dL (0.2-1.3); Total Protein 3.8 g/dL (6.3-8.2)
[2023-02-04 05:54] LABS: Glucose,Whole Blood 134 mg/dL (70-110)
[2023-02-04] MEDS: PIPERACILLIN-TAZOBACTAM 3.375 GM in SODIUM CHLORIDE 0.9% 100 ML IVPB SCH ×3 (05:58→22:30)
[2023-02-04] MEDS: MVI, ADULT NO.4 WITH VIT K 10 ML, TRACE (CONC-1ML/DOSE) 1 ML, SODIUM ACETATE 30 MEQ, CA... IV SCH ×7 (07:09)
[2023-02-04] MEDS: ARTIFICIAL TEARS-HYPROMELLOSE DROPS 15 ML BTL RIGHT EYE SCH ×2 (08:24→22:30)
[2023-02-04] MEDS: PANTOPRAZOLE 40 MG/10 ML VIAL IVP SCH ×2 (08:32→21:45)
[2023-02-04] MEDS: ALBUMIN HUMAN 25% 50 ML in EMPTY BAG 1 BAG IVPB SCH ×2 (08:32→21:44)
[2023-02-04] MEDS: SODIUM CHLORIDE 0.9% 1,000 ML IV SCH (08:36)
[2023-02-04] MEDS ORDERED: LIDOCAINE 1% INJ 10MG/ML (20 ML MDV) SQ ONE (08:54)
--- NOTE | 2023-02-04 09:35 | P.PN ---
Subjective Progress Note Date: 02/04/23 The patient is a 67-year-old male who is demented to the hospital with abdominal discomfort. 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 The patient developed postoperative atrial fibrillation and therefore cardiology was consulted. He was started on amiodaro ne drip and subsequently converted to sinus mechanism. Postoperative complications include acute hypoxic respiratory failure and septic shock. The patient has been exudative elevated and is doing well from a respiratory status, however he has no parental axis. Due to the large portion of his small bowel being removed, it is unlikely that the patient will be able to absorb nutrition and oral medications and he will remain on TPN. Patient was interviewed and examined resting comfortably in bed. He reports having abdominal pain. GENERAL: Ill-appearing, well-nourished and in no acute distress. NECK: Supple without JVD or thyromegaly. LUNGS: Breath sounds coarse to auscultation bilaterally. Respiration equal and unlabored. HEART: Regular rate and rhythm without murmurs, rubs or gallops. S1 and S2 heard. EXTREMITIES: Normal range of motion, mild edema. No clubbing or cyanosis. Peripheral pulses intact and strong. TELEMETRY: Atrial fibrillation with RVR and sinus rhythm in the 80s IMPRESSION: Atrial fibrillation with RVR, currently in sinus rhythm Acute ischemic bowel, status post resection Thrombocytopenia Anemia, blood loss secondary to surgery PLAN: Continue IV amiodarone to 1 mg for additional 24 hours Patient will need to remain on IV amiodarone for rate control as there are no sublingual or transdermal preparations of antiarrhythmics Further recommendations will be based on clinical course I am dictating on behalf of Dr Jerson Serrano's history/physical and assessm ent/plan. Objective - Vital Signs Vital signs: Vital Signs Temp 98.6 F 02/04/23 04:00 Pulse 80 02/04/23 08:00 Resp 28 H 02/04/23 08:00 BP 128/71 02/04/23 08:00 Pulse Ox 93 L 02/04/23 09:12 FiO2 30 02/01/23 10:15 Intake & Output 02/03/23 02/04/23 02/04/23 18:59 06:59 18:59 Intake Total 2246.5 1727.774 961 Output Total 605 1155 60 Balance 1641.5 572.774 901 Weight 88 kg 90.8 kg Intake: IV 930 1255 65 Albumin Human 25% 50 ml 50 50 In Empty Bag 1 bag @ 50 mls/hr IVPB BID [facility] Rx#: [id number] Anidulafungin 100 mg In 100 Sodium Chloride 0.9% 100 ml @ 84 mls/hr IVPB Q24H [facility] Rx#:[id number] Mvi, Adult No.4 with Vit 640 845 45 K 10 ml Trace (Conc-1Ml/ Dose) 1 ml Sodium Acetate 30 meq Calcium Gluconate 1.25 gm Potassium Acetate 40 meq Potassium Phosphate 24 mmol In Amino Acid 5%-D15w 1,000 ml @ 45 mls/hr IV . [id number] [facility] Rx#:[id number] Sodium Chloride 0.9% 1, 240 260 20 000 ml @ 20 mls/hr IV . Q24H [facility] Rx#:[id number] Intake, IV Titration 1316.5 472.774 896 Amount Amiodarone 360 mg In 372.774 200 Dextrose 5% in Water 200 ml @ 1 MG/MIN 33.333 mls/ hr IV .Q6H [facility] Rx#: [id number] Heparin Sod,Pork in 0.45% 250 NaCl 25,000 unit In 0.45 % NaCl 1 250ml.bag @ 12 UNITS/KG/HR 7.68 mls/hr IV .Q24H [facility] Rx#: [id number] Mvi, Adult No.4 with Vit 1066.5 696 K 10 ml Trace (Conc-1Ml/ Dose) 1 ml Sodium Acetate 30 meq Calcium Gluconate 1.25 gm Potassium Acetate 40 meq Potassium Phosphate 24 mmol In Amino Acid 5%-D15w 1,000 ml @ 45 mls/hr IV . [id number] [facility] Rx#:[id number] Piperacillin-Tazobactam 3 100 .375 gm In Sodium Chloride 0.9% 100 ml @ 25 mls/hr IVPB Q8H [facility] Rx#: [id number] Output: Urine 405 555 60 Stool 200 600 Other: Voiding Method Indwelling Catheter Indwelling Catheter Indwelling Catheter ABP, PAP, CO, CI - Last Documented Arterial Blood Pressure 112/78 - Labs CBC & Chem 7: 02/03/23 05:09 02/04/23 04:09 Labs: Abnormal Lab Results - Last 24 Hours (Table) 02/03/23 02/03/23 02/04/23 Range/Units 11:37 17:37 00:20 APTT (22.0-30.0) sec Chloride (98-107) mmol/L BUN (9-20) mg/dL Creatinine (0.66-1.25) mg/dL Glucose (74-99) mg/dL POC Glucose (mg/dL) 119 H 152 H 141 H (70-110) mg/dL Calcium (8.4-10.2) mg/dL Total Bilirubin (0.2-1.3) mg/dL AST (17-59) U/L ALT (4-49) U/L Total Protein (6.3-8.2) g/dL Albumin (3.5-5.0) g/dL 02/04/23 02/04/23 02/04/23 Range/Units 04:04 04:09 05:53 APTT 44.3 H (22.0-30.0) sec Chloride 114 H (98-107) mmol/L BUN 26 H (9-20) mg/dL Creatinine 0.47 L (0.66-1.25) mg/dL Glucose 119 H (74-99) mg/dL POC Glucose (mg/dL) 134 H (70-110) mg/dL Calcium 6.9 L (8.4-10.2) mg/dL Total Bilirubin 8.5 H (0.2-1.3) mg/dL AST 73 H (17-59) U/L ALT 89 H (4-49) U/L Total Protein 3.8 L (6.3-8.2) g/dL Albumin 1.5 L (3.5-5.0) g/dL Microbiology - Last 24 Hours (Table) 02/02/23 15:54 Blood Culture - Preliminary Blood
--- NOTE | 2023-02-04 09:59 | XR ---
EXAMINATION TYPE: XR chest 1V portable DATE OF EXAM: 02/04/2023 9:19 AM CLINICAL INDICATION:Male, 67 years old with history of PICC LINE PLACEMENT; [facility] COMPARISON: Chest radiographs from 02/02/2023e TECHNIQUE: XR chest 1V portable Frontal view of the chest. FINDINGS: Lungs/Pleura: There is a line extending across the right lung which may represent a skinfold on the p atient versus pneumothorax. There is small bilateral pleural effusions. Left midlung airspace opacity . No left pneumothorax. Pulmonary vascularity: Unremarkable. Heart/mediastinum: Cardiomediastinal silhouette is enlarged and stable. Musculoskeletal: No acute osseous pathology. Other findings: None Lines/Tubes: Left-sided PICC with distal tip at the/brachiocephalic vein.. IMPRESSION: 1. Right lung linear lucency which is not a definitive visceral pleural line and could represent ski nfold. Repeat exam to rule out right pneumothorax. 2. Small bilateral pleural effusions and cardiomegaly correlate for congestive heart failure. 3. Left-sided PICC with distal tip at the/brachiocephalic vein. 4. Left midlung airspace opacities correlate for pneumonia.
--- NOTE | 2023-02-04 10:22 | P.PN ---
Subjective Progress Note Date: 02/04/23 CHIEF COMPLAINT: Abdominal pain HISTORY OF PRESENT ILLNESS: Patient is postop day #9 status post exploratory laparotomy with small bowel resection and jejunostomy for ischemic small intestine and intra-abdominal adhesions. Patient appears comfortable and sitting in bed. Patient scheduled for a computed tomography scan abdomen and pelvis today due to persistent elevated white count. Pain is controlled. Denies any nausea vomiting. Ileostomy is functioning. He did get his PICC line today. TPN is running for nutrition support. Afebrile. CBC for today pending. Na 141 potassium 4.1 creatinine 3.47. Patient remains nothing by mouth. He has failed his swallowing eval again. PHYSICAL EXAM: VITAL SIGNS: Reviewed. GENERAL: Well-developed in no acute distress. ABDOMEN: Soft. Nondistended. Midline incision clean dry and intact Jejunostomy liquid brown output ASSESSMENT: 1. Ischemic small intestine and intra-abdominal adhesions status post exploratory laparotomy with small bowel resection and jejunostomy 2. Leukocytosis PLAN: -Follow up on computed tomography scan abdomen and pelvis -Recommend no oral medications because patient will have difficulty absorbing medications since most of his small bowel has been resected -Continue ICU management -Continue supportive care -Patient will require lifelong TPN -Antibiotics per ID service Physician Fuel Yard Operator note has been reviewed by physician. Signing provider agrees with the documented findings, assessment, and plan of care. I have personally seen and examined the patient, reviewed the ADVANCED MANUFACTURING ASSOCIATE /PAs history, exam and MDM and agree with the assessment and plan as written. Based on total visit time, I have performed more than 50% of the visit. As above: Patient earlier said his pain was improved however now sits bad ag ain. Heart rate is now normal. He is afebrile today. Stable blood pressure. Good urine output. Ostomy is functioning. Will review CAT scan abdomen and pelvis. Continue supportive care. Objective - Vital Signs Vital signs: Vital Signs Temp 98.6 F 02/04/23 04:00 Pulse 80 02/04/23 08:00 Resp 28 H 02/04/23 08:00 BP 128/71 02/04/23 08:00 Pulse Ox 93 L 02/04/23 09:12 FiO2 30 02/01/23 10:15 Intake & Output 02/03/23 02/04/23 02/04/23 18:59 06:59 18:59 Intake Total 2246.5 1727.774 961 Output Total 605 1155 60 Balance 1641.5 572.774 901 Weight 88 kg 90.8 kg Intake: IV 930 1255 65 Albumin Human 25% 50 ml 50 50 In Empty Bag 1 bag @ 50 mls/hr IVPB BID [facility] Rx#: [id number] Anidulafungin 100 mg In 100 Sodium Chloride 0.9% 100 ml @ 84 mls/hr IVPB Q24H [facility] Rx#:[id number] Mvi, Adult No.4 with Vit 640 845 45 K 10 ml Trace (Conc-1Ml/ Dose) 1 ml Sodium Acetate 30 meq Calcium Gluconate 1.25 gm Potassium Acetate 40 meq Potassium Phosphate 24 mmol In Amino Acid 5%-D15w 1,000 ml @ 45 mls/hr IV . [id number] [facility] Rx#:[id number] Sodium Chloride 0.9% 1, 240 260 20 000 ml @ 20 mls/hr IV . Q24H [facility] Rx#:[id number] Intake, IV Titration 1316.5 472.774 896 Amount Amiodarone 360 mg In 372.774 200 Dextrose 5% in Water 200 ml @ 1 MG/MIN 33.333 mls/ hr IV .Q6H [facility] Rx#: [id number] Heparin Sod,Pork in 0.45% 250 NaCl 25,000 unit In 0.45 % NaCl 1 250ml.bag @ 12 UNITS/KG/HR 7.68 mls/hr IV .Q24H [facility] Rx#: [id number] Mvi, Adult No.4 with Vit 1066.5 696 K 10 ml Trace (Conc-1Ml/ Dose) 1 ml Sodium Acetate 30 meq Calcium Gluconate 1.25 gm Potassium Acetate 40 meq Potassium Phosphate 24 mmol In Amino Acid 5%-D15w 1,000 ml @ 45 mls/hr IV . [id number] [facility] Rx#:[id number] Piperacillin-Tazobactam 3 100 .375 gm In Sodium Chloride 0.9% 100 ml @ 25 mls/hr IVPB Q8H [facility] Rx#: [id number] Output: Urine 405 555 60 Stool 200 600 Other: Voiding Method Indwelling Catheter Indwelling Catheter Indwelling Catheter ABP, PAP, CO, CI - Last Documented Arterial Blood Pressure 112/78 - Labs CBC & Chem 7: 02/03/23 05:09 02/04/23 04:09 Labs: Abnormal Lab Results - Last 24 Hours (Table) 02/03/23 02/03/23 02/04/23 Range/Units 11:37 17:37 00:20 APTT (22.0-30.0) sec Chloride (98-107) mmol/L BUN (9-20) mg/dL Creatinine (0.66-1.25) mg/dL Glucose (74-99) mg/dL POC Glucose (mg/dL) 119 H 152 H 141 H (70-110) mg/dL Calcium (8.4-10.2) mg/dL Total Bilirubin (0.2-1.3) mg/dL AST (17-59) U/L ALT (4-49) U/L Total Protein (6.3-8.2) g/dL Albumin (3.5-5.0) g/dL 02/04/23 02/04/23 02/04/23 Range/Units 04:04 04:09 05:53 APTT 44.3 H (22.0-30.0) sec Chloride 114 H (98-107) mmol/L BUN 26 H (9-20) mg/dL Creatinine 0.47 L (0.66-1.25) mg/dL Glucose 119 H (74-99) mg/dL POC Glucose (mg/dL) 134 H (70-110) mg/dL Calcium 6.9 L (8.4-10.2) mg/dL Total Bilirubin 8.5 H (0.2-1.3) mg/dL AST 73 H (17-59) U/L ALT 89 H (4-49) U/L Total Protein 3.8 L (6.3-8.2) g/dL Albumin 1.5 L (3.5-5.0) g/dL Microbiology - Last 24 Hours (Table) 02/02/23 15:54 Blood Culture - Preliminary Blood
--- NOTE | 2023-02-04 10:44 | P.CONS ---
History of Present Illness - Reason for Consult Consult date: 02/04/23 wound care - History of Present Illness This is a 67-year-old gentleman being seen by the wound care center in ICU for a hospital-acquired pressure ulcer to the sacrum. Patient has a stage II pressure ulcer with fatty layer exposure measuring approximately 2 x 2 x 0.2 cm with ecchymosis fat layer exposure no tunneling or undermining and maceration. Patient's past medical history significant for atrial fibrillation, coronary artery disease, dementia, diabetes, hypertension, pulmonary embolism, hepatitis C seizure disorder. Review Of Systems: Constitutional: No fever, no chills, no night sweats. No weight change. No weakness, fatigue or lethargy. No daytime sleepiness. Integumentary:reports wounds, no lesions. No rash or pruritus. No unusual bruising. No change in hair or nails. Physical exam: General Appearance: Alert, cooperative, no distress, appears stated age. Skin: See HPI all other Skin color, texture, tugor normal, no rashes or lesions. Neurologic: Alert oriented x3 Assessment: 1. Stage II pressure ulcer sacrum 2. Diabetes with skin ulceration Plan: 1. Apply honey gel, ABD or border foam. Apply triad to the periwound. If increased drainage noted to the site may apply absorptive silver over the honey gel to contain the drainage. Turn patient every 2 hours. Utilize a air-filled cushion when sitting. Review the surface algorithm for the appropriate surface. If ulceration continues to decline please reconsult wound care. Thank you for the consultation any questions to contact the wound care center DNP note has been reviewed and discussed with Dr. Powers and the impression and plan of care has been directed as dictated. 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 , HX OF BRAIN DAMAGE R/T DRUG ABUSE, abdominal hernia,rt hemiparesis History of Any Multi-Drug Resistant Organisms: ESBL, MRSA Year Discovered:: 04/02/17 MDRO Source:: sputum esbl, LT FOOT WOUND Past Surgical History: Adenoidectomy, Bowel Resection, Hernia Repair, Tonsillectomy Additional Past Surgical History / Comment(s): wound debridement to L FOOT, LYSIS OF ADHESIONS.PEG INSERTION & Removal, EGD, INCISIONAL HERNIA 11/2018 AT [facility]. SBO WITH PARTIAL BOWEL RESECTION (2017) Past Anesthesia/Blood Transfusion Reactions: No Reported Reaction Additional Past Anesthesia/Blood Transfusion Reaction / Comm: BROTHER- CINDY MADERA STATES NO PROBLEMS WITH ANESTHESIA AND NO FAMILY HX OF PROBLEMS WITH ANESTHESIA. Past Psychological History: Anxiety, Depression Additional Psychological History / Comment(s): Pt resides at [facility] since 2006. Smoking Status: Never smoker Past Alcohol Use History: None Reported Additional Past Alcohol Use History / Comment(s): Pt is a recovering alcoholic. Past Drug Use History: None Reported Additional Drug Use History / Comment(s): HX OF BRAIN DAMAGE R/T DRUG ABUSE - Past Family History Father Family Medical History: Dementia Additional Family Medical History / Comment(s): Father of alzheimer dementia at the age of 87yrs. Mother Family Medical History: Cancer Additional Family Medical History / Comment(s): Mother had breast cancer and had a cancerous tumor removed from outside her bladder. She at the age of 87yrs from lung cancer. Medications and Allergies Home Medications Medication Instructions Recorded Confirmed Type Levothyroxine Sodium [Synthroid] 50 mcg PO DAILY 07/08/14 01/26/23 History Artificial Tears-Hypromellose 1 drop RIGHT EYE BID@0500,2200 02/15/17 01/26/23 History [Artificial Tear Drops] Melatonin 3 mg PO HS 10/06/17 01/26/23 History Rivaroxaban [Xarelto] 20 mg PO DAILY@1600 10/06/17 01/26/23 History diazePAM 2 mg PO QID@07,11,16,20 10/06/17 01/26/23 History polyethylene glycoL 3350 [Miralax] 17 gm PO DAILY 11/13/18 01/26/23 History Tamsulosin [Flomax] 0.4 mg PO DAILY #5 cap 11/17/18 01/26/23 Rx Escitalopram [Lexapro] 5 mg PO DAILY 04/25/19 01/26/23 History Memantine [Namenda] 10 mg PO BID 11/28/20 01/26/23 History Omeprazole 20 mg PO HS 11/28/20 01/26/23 History Acetaminophen [Tylenol 8 Hour] 650 mg PO Q6H PRN 01/26/23 01/26/23 History Docusate [Colace] 100 mg PO BID 01/26/23 01/26/23 History Magnesium Hydroxide [Milk of 2,400 mg PO DAILY PRN 01/26/23 01/26/23 History Magnesia] Metoprolol Tartrate [Lopressor] 12.5 mg PO BID 01/26/23 01/26/23 History Sennosides [Senokot] 17.2 mg PO DAILY 01/26/23 01/26/23 History Sodium Chloride [[place]] 2 spray EA NOSTRIL Q3H PRN 01/26/23 01/26/23 H istory Transderm Scop 1.5mg 1 patch TRANSDERM Q72H 01/26/23 01/26/23 History polyethylene glycoL 3350 [Miralax] 17 gm PO DAILY PRN 01/26/23 01/26/23 History Allergies Allergy/AdvReac Type Severity Reaction Status Date / Time No Known Allergies Allergy Verified 01/26/23 07:59 Physical Exam Vitals: Vital Signs Temp Pulse Resp BP Pulse Ox 02/04/23 10:00 82 27 H 123/79 94 L 02/04/23 09:12 93 L 02/04/23 09:00 79 27 H 144/80 92 L 02/04/23 08:00 80 28 H 128/71 94 L 02/04/23 07:00 82 37 H 121/72 92 L 02/04/23 06:00 81 27 H 129/74 93 L 02/04/23 05:00 79 25 H 125/70 93 L 02/04/23 04:00 98.6 F 79 29 H 125/70 94 L 02/04/23 03:00 78 28 H 118/67 91 L 02/04/23 02:00 81 35 H 121/72 96 02/04/23 01:00 81 25 H 107/73 95 02/04/23 00:07 110 H 21 113/71 94 L 02/04/23 00:05 105 H 22 113/71 93 L 02/03/23 23:00 85 23 112/79 95 02/03/23 22:00 115 H 23 102/70 96 02/03/23 21:00 111 H 23 107/75 93 L 02/03/23 20:00 98.9 F 133 H 24 98/64 94 L 02/03/23 19:00 130 H 35 H 116/78 92 L 02/03/23 18:00 134 H 26 H 104/72 94 L 02/03/23 17:00 135 H 22 97/69 95 02/03/23 16:00 125 H 26 H 106/67 95 02/03/23 15:00 135 H 26 H 111/83 95 02/03/23 14:00 118 H 20 115/71 94 L 02/03/23 13:00 137 H 19 104/73 96 02/03/23 12:00 138 H 24 94/66 96 02/03/23 11:00 141 H 28 H 108/72 94 L Intake and Output 02/03/23 02/04/23 02/04/23 22:59 06:59 14:59 Intake Total 4743.116 2326.109 1026 Output Total 505 1000 520 Balance 501.665 61.109 506 Intake: IV 830 765 130 Albumin Human 25% 50 ml 50 In Empty Bag 1 bag @ 50 mls/hr IVPB BID [facility] Rx#: [id number] Anidulafungin 100 mg In 100 Sodium Chloride 0.9% 100 ml @ 84 mls/hr IVPB Q24H [facility] Rx#:[id number] Mvi, Adult No.4 with Vit 520 585 90 K 10 ml Trace (Conc-1Ml/ Dose) 1 ml Sodium Acetate 30 meq Calcium Gluconate 1.25 gm Potassium Acetate 40 meq Potassium Phosphate 24 mmol In Amino Acid 5%-D15w 1,000 ml @ 45 mls/hr IV . [id number] [facility] Rx#:[id number] Sodium Chloride 0.9% 1, 160 180 40 000 ml @ 20 mls/hr IV . Q24H [facility] Rx#:[id number] Intake, IV Titration 176.665 296.109 896 Amount Amiodarone 360 mg In 176.665 196.109 200 Dextrose 5% in Water 200 ml @ 1 MG/MIN 33.333 mls/ hr IV .Q6H [facility] Rx#: [id number] Mvi, Adult No.4 with Vit 696 K 10 ml Trace (Conc-1Ml/ Dose) 1 ml Sodium Acetate 30 meq Calcium Gluconate 1.25 gm Potassium Acetate 40 meq Potassium Phosphate 24 mmol In Amino Acid 5%-D15w 1,000 ml @ 45 mls/hr IV . [id number] [facility] Rx#:[id number] Piperacillin-Tazobactam 3 100 .375 gm In Sodium Chloride 0.9% 100 ml @ 25 mls/hr IVPB Q8H [facility] Rx#: [id number] Output: Urine 305 400 120 Stool 200 600 400 Other: Voiding Method Indwelling Catheter Indwelling Catheter Indwelling Catheter Weight 90.8 kg Results CBC & Chem 7: 02/03/23 05:09 02/04/23 04:09 Labs: Abnormal Lab Results - Last 24 Hours (Table) 02/03/23 02/03/23 02/04/23 Range/Units 11:37 17:37 00:20 APTT (22.0-30.0) sec Chloride (98-107) mmol/L BUN (9-20) mg/dL Creatinine (0.66-1.25) mg/dL Glucose (74-99) mg/dL POC Glucose (mg/dL) 119 H 152 H 141 H (70-110) mg/dL Calcium (8.4-10.2) mg/dL Total Bilirubin (0.2-1.3) mg/dL AST (17-59) U/L ALT (4-49) U/L Total Protein (6.3-8.2) g/dL Albumin (3.5-5.0) g/dL 02/04/23 02/04/23 02/04/23 Range/Units 04:04 04:09 05:53 APTT 44.3 H (22.0-30.0) sec Chloride 114 H (98-107) mmol/L BUN 26 H (9-20) mg/dL Creatinine 0.47 L (0.66-1.25) mg/dL Glucose 119 H (74-99) mg/dL POC Glucose (mg/dL) 134 H (70-110) mg/dL Calcium 6.9 L (8.4-10.2) mg/dL Total Bilirubin 8.5 H (0.2-1.3) mg/dL AST 73 H (17-59) U/L ALT 89 H (4-49) U/L Total Protein 3.8 L (6.3-8.2) g/dL Albumin 1.5 L (3.5-5.0) g/dL Microbiology - Last 24 Hours (Table) 02/02/23 15:54 Blood Culture - Preliminary Blood Assessment and Plan (1) Stage II pressure ulcer of sacral region Current Visit: Yes Status: Acute Code(s): L89.152 - PRESSURE ULCER OF SACRAL REGION, STAGE 2 SNOMED Code(s): 95466870714905 (2) Type 2 diabetes mellitus with other skin ulcer Current Visit: Yes Status: Acute Code(s): E11.622 - TYPE 2 DIABETES MELLITUS WITH OTHER SKIN ULCER; L98.499 - NON-PRESSURE CHRONIC ULCER OF SKIN OF SITES W UNSP SEVERITY SNOMED Code(s): 775132312
--- NOTE | 2023-02-04 11:26 | P.PN ---
Subjective Progress Note Date: 02/04/23 Principal diagnosis: Respiratory failure. Reevaluated today on 01/28/2023, patient remains in the ICU, intubated and mechanically ventilated. His assist-control rate is 16 tidal volume is 500 FiO2 40% PEEP of 5 ABG showed a pO2 of 129 pCO2 32 pH of 7.40 and I cut down his FiO2 to 35%. Patient is off propofol this morning and he is able to follow instructions, seems to comprehend, and seems to be relatively intact. However the patient is still requiring significant amount of drips/pressors he is on vasopressin at 0.04 units. Hour is also on norepinephrine at 19 mcg/m, Rodrigue- Synephrine has been discontinued. His IV fluid is down to 75 mL per hour and his bicarb is down to 25 ML per hour drip. Remains on amiodarone, patient is on 0.5 mg/m, and he is yet to be seen by cardiology today, seems to be in atrial flutter. WBC count today remains elevated at 24.4 hemoglobin is 9.4, lactic acid is 7.3, patient will receive another bolus of saline this morning. Elected lites are normal renal profile is improving bicarb is down to 17 and his creatinine is down to 1.37, liver enzymes remain elevated with AST of 591 and ALT of 449 chest x-ray showed minimal basilar atelectasis, no clear-cut evidence of infiltrates. Patient was reevaluated today on 01/29/2023, remains in the ICU, intubated and mechanically ventilated. Patient continues to have issues with atrial fibri llation and RVR, remains on amiodarone drip, he is receiving beta blockers by cardiology however that seems to be dropping his blood pressure, patient remains on relatively high dose of norepinephrine at 0.16 mcg/kg/m and today I suggested transitioning norepinephrine to Rodrigue-Synephrine since he was doing much better as far as tachycardia while he was on Rodrigue-Synephrine. We'll try to start Rodrigue-Syne phrine and gradually tapered down his norepinephrine hoping that his tachycardia would get better with Rodrigue-Synephrine on board. Remains on propofol at 7 mcg/kg/m remains on Lovenox remains on Zosyn remains on amiodarone at 0.5 mg/m. Patient did receive metoprolol 2.5 mg IV push slowly earlier. Ventilator smith he is on assist control rate of 16 tidal volume 500 FiO2 35% PEEP of 5 up gases showed a BNP O2 of 147 pCO2 42 pH of 7.41. Hence his FiO2 was brought down to 35% from 40% his sodium bicarb corrected nicely hence I'm stopping his sodium bicarb drip his urine output is about 100 mL/h, patient remains on IV fluid about 1 25 mL per hour. Not to mention the patient was started on TPN. Overall the patient remains critically ill, he is not ready for weaning mostly because of his cardiac issues and intermittent episodes of hypotension syndrome requiring significant amount of pressors re elevated today on 01/30, patient remains in the ICU, intubated and mechanically ventilated. He is on assist control rate of 16 tidal volume 500 FiO2 35% and PEEP of 5 ABG showed a pO2 of 102 pCO2 34 pH of 7.45 patient remains on amiodarone at 0.5 mg/m remains on TPN with lipids he is on Rodrigue-Syne phrine 1.2 mcg/kg/m propofol 10 mcg/kg/m IV fluid and 1 25 mL per hour remains on Solu-Cortef 50 mg IV push every 12 hours is also on Zosyn blood pressure is marginal in spite of Rodrigue-Synephrine hence I recommended that the patient gets a bolus of 0.9 normal saline today, and I actually plan to hold his propofol today and give the patient mental status assessment and possibly a weaning trial with pressure support and CPAP. Yesterday the patient was having significant tachycardia however the patient responded well to transitioning norepinephrine to Rodrigue-Synephrine and his tachycardia did resolve. He is now in sinus rhythm and his rate is in the 70s. I believe she count is 20.4 hemoglobin is 7.7 electrolytes are normal renal profile remains normal. A blood sugar is also normal, liver enzymes remains a bit elevated with ALT of 459 and AST of 422 bilirubin is 2.2. Progress note dated 01/31/2023. This is a 67-year-old male who was admitted to the hospital on January 26, with a history of small bowel obstruction, status post small bowel resection, and jejunostomy. The patient went to the operating room on January 26. He remains on mechanical ventilator. He is on volume assist control, rate 16, tidal volume 500, FiO2 35%, and PEEP of 5. Blood gases show a PaO2 of 125, pCO2 35, and pH is 7.42. The FiO2 was turned down from 35-30%. The patient's on saline at 25 mL an hour, amiodarone at 0.5 mg/m, Rodrigue-Synephrine, which is been recently discontinued, and TPN at 60 mL an hour. Propofol is also been weaned off. The patient is a DO NOT RESUSCITATE patient. Nonetheless, the patient will have a daily interruption of sedation, and a spontaneous breathing trial on a pressure support of 5 and CPAP of 5. The patient does continue on Zosyn. White count 17.4, hemoglobin 7.7, hematocrit 25, and platelet count 67,000. Sodium 139, potassium 3.7, chlorides 113, CO2 22, BUN 24, and creatinine 0.51. AST is 381. ALT is 425. Chest x-ray shows trace bilateral effusions. Progress note dated 02/01/2023. This is a 67-year-old male who was admitted to the hospital on January 26, with a history of small bowel obstruction, status post small bowel resection, and jejunostomy. The patient went to the operating room on January 26. He remains on mechanical ventilator. The patient is on the volume assist control, but will be placed on pressure support and CPAP, at 40%, and given a trial, of extubation. The patient continues on antibiotics, antifungals. We made sure with the family, that once the patient is extubated, he is not to be reintubated. The patient's getting TPN at 45 mL an hour, and saline at 1 25 mL an hour. Norepinephrine has been weaned off. The patient remains on heparin via weightbase protocol. In addition, the patient is on amiodarone at 0.5 mg/m. Propofol is off. Once extubated, and the NG tube will be discontinued as well. White count 17.6, hemoglobin 7.9, hematocrit 25.7, and platelet count 80,000. PO2 was 126, pCO2 was 37, and pH of 7.4. Sodium 138, potassium 4, chlorides 114, CO2 21, BUN 25, and creatinine 0.43. Chest x-ray shows a stable portable chest x-ray. Progress note dated 02/02/2023. This is a 67-year-old male who was admitted to the hospital on January 26, with a history of small bowel obstruction, status post small bowel resection, and jejunostomy. The patient went to the operating room on January 26. The patient was successfully extubated yesterday, February 01. The patient is currently on 2 L of oxygen. The patient's getting saline at 125 mL an hour. The patient's getting TPN at 45 mL an hour, and amiodarone at 0.5 mg/m. The patient remains on heparin via weightbase protocol. Zosyn is discontinued. Hydrocortisone is discontinued. White count 24.1, hemoglobin 8.3, hematocrit 26.2, and platelet count 78,000. PTT is 47.9. Sodium 140, potassium 4.1, chlorides 116, CO2 22, BUN 21, and creatinine 0.41. Chest x-ray shows persistent bilateral pleural effusions, and some left lower lobe infiltrate or atelectasis. Progress note dated 02/03/2023. 67-year-old male was admitted to the hospital on January 26, with a history of small bowel obstruction, status post small bowel resection, and jejunostomy. The patient went to the operating room on January 26. The patient was s uccessfully extubated, on February 01. Currently, the patient remains on oxygen, 3 L. He is getting saline at 20 mL an hour, and TPN at 45 mL an hour. He continues on IV heparin via weight aced protocol, and amiodarone 0.5 mg/m. He continues on Zosyn and Eraxis, as per infectious diseases. A PICC line will be placed. The patient will also get 12.5 g of 25% albumin, every 12 hours. Hopefully, this will improve his colloid osmotic pressure. White count 24.3, hemoglobin 9.4, hematocrit 31.1, with a platelet count of 107,000. Sodium 141, potassium 3.9, chlorides 111, CO2 25, BUN 20, and creatinine 0.45. There was no chest x-ray today. Progress note dated 02/04/2023. 67-year-old male was admitted to the hospital on January 26, with a history of small bowel obstruction, status post small bowel resection, and jejunostomy. The patient went to the operating room on January 26. The patient was successfully extubated, on February 01. Currently, the patient is seen today in room 262. The patient's on oxygen 3 L. In addition, the patient's on amiodarone at 1 mg/m, TPN at 35 mL an hour, saline at 20 mL an hour, and heparin via weightbase protocol. A PICC line was placed this morning. We will check another pro-calcitonin level. The patient remains on Zosyn and the Eraxis as per infectious disease PTT was 44.3. Sodium 141, potassium 4.1, chlorides 114, CO2 25, BUN 26, and creatinine 0.47. Albumin is 1.5. Objective - Vital Signs Vital signs: Vital Signs Temp 98.6 F 02/04/23 04:00 Pulse 82 02/04/23 10:00 Resp 27 H 02/04/23 10:00 BP 123/79 02/04/23 10:00 Pulse Ox 94 L 02/04/23 10:00 FiO2 30 02/01/23 10:15 Intake & Output 02/03/23 02/04/23 02/04/23 18:59 06:59 18:59 Intake Total 2246.5 5452.996 3941 Output Total 605 1155 565 Balance 1641.5 572.774 506 Weight 88 kg 90.8 kg Intake: IV 930 1255 175 Albumin Human 25% 50 ml 50 50 In Empty Bag 1 bag @ 50 mls/hr IVPB BID [facility] Rx#: [id number] Anidulafungin 100 mg In 100 Sodium Chloride 0.9% 100 ml @ 84 mls/hr IVPB Q24H [facility] Rx#:[id number] Mvi, Adult No.4 with Vit 640 845 135 K 10 ml Trace (Conc-1Ml/ Dose) 1 ml Sodium Acetate 30 meq Calcium Gluconate 1.25 gm Potassium Acetate 40 meq Potassium Phosphate 24 mmol In Amino Acid 5%-D15w 1,000 ml @ 45 mls/hr IV . [id number] [facility] Rx#:[id number] Sodium Chloride 0.9% 1, 240 260 40 000 ml @ 20 mls/hr IV . Q24H [facility] Rx#:[id number] Intake, IV Titration 1316.5 472.774 896 Amount Amiodarone 360 mg In 372.774 200 Dextrose 5% in Water 200 ml @ 1 MG/MIN 33.333 mls/ hr IV .Q6H [facility] Rx#: [id number] Heparin Sod,Pork in 0.45% 250 NaCl 25,000 unit In 0.45 % NaCl 1 250ml.bag @ 12 UNITS/KG/HR 7.68 mls/hr IV .Q24H [facility] Rx#: [id number] Mvi, Adult No.4 with Vit 1066.5 696 K 10 ml Trace (Conc-1Ml/ Dose) 1 ml Sodium Acetate 30 meq Calcium Gluconate 1.25 gm Potassium Acetate 40 meq Potassium Phosphate 24 mmol In Amino Acid 5%-D15w 1,000 ml @ 45 mls/hr IV . [id number] [facility] Rx#:[id number] Piperacillin-Tazobactam 3 100 .375 gm In Sodium Chloride 0.9% 100 ml @ 25 mls/hr IVPB Q8H [facility] Rx#: [id number] Output: Urine 405 555 165 Stool 200 600 400 Other: Voiding Method Indwelling Catheter Indwelling Catheter Indwelling Catheter ABP, PAP, CO, CI - Last Documented Arterial Blood Pressure 112/78 - Exam No acute distress, extubated, awake and alert. Currently on 3 L of oxygen. HEENT examination is grossly unremarkable. Neck supple. Full range of motion. No adenopathy thyromegaly or neck vein distention. Cardiovascular examination reveals an irregular rhythm and rate. S1-S2 normal. No S3 or S4. No discernible murmur noted. Heart sounds are distant. Heart rate is 78 bpm. Lungs reveal scattered bilateral rhonchi. No wheezes or crackles. Breath sounds are equal bilaterally. 3 L saturation is 96 %. Abdomen soft bowel sounds are heard. No masses or tenderness. The patient has significant scrotal edema. Extremities are intact. No cyanosis clubbing or edema. Skin is without rash or lesion. Neurologic examination is brief but nonfocal. - Labs CBC & Chem 7: 02/03/23 05:09 02/04/23 04:09 Labs: Abnormal Lab Results - Last 24 Hours (Table) 02/03/23 02/03/23 02/04/23 Range/Units 11:37 17:37 00:20 APTT (22.0-30.0) sec Chloride (98-107) mmol/L BUN (9-20) mg/dL Creatinine (0.66-1.25) mg/dL Glucose (74-99) mg/dL POC Glucose (mg/dL) 119 H 152 H 141 H (70-110) mg/dL Calcium (8.4-10.2) mg/dL Total Bilirubin (0.2-1.3) mg/dL AST (17-59) U/L ALT (4-49) U/L Total Protein (6.3-8.2) g/dL Albumin (3.5-5.0) g/dL 02/04/23 02/04/23 02/04/23 Range/Units 04:04 04:09 05:53 APTT 44.3 H (22.0-30.0) sec Chloride 114 H (98-107) mmol/L BUN 26 H (9-20) mg/dL Creatinine 0.47 L (0.66-1.25) mg/dL Glucose 119 H (74-99) mg/dL POC Glucose (mg/dL) 134 H (70-110) mg/dL Calcium 6.9 L (8.4-10.2) mg/dL Total Bilirubin 8.5 H (0.2-1.3) mg/dL AST 73 H (17-59) U/L ALT 89 H (4-49) U/L Total Protein 3.8 L (6.3-8.2) g/dL Albumin 1.5 L (3.5-5.0) g/dL Microbiology - Last 24 Hours (Table) 02/02/23 15:54 Blood Culture - Preliminary Blood Assessment and Plan Assessment: Status post exploratory laparotomy with resection, and jejunostomy, postoperative day #9. Routine postoperative ventilator management, S/P successful extubation 02/01/2023. Status post intubation and mechanical ventilation on 01/26/2023. Abdominal sepsis with septic shock, improved. Acute hypoxemic respiratory failure secondary to abdominal sepsis, and extensive bowel ischemia. Paroxysmal atrial fibrillation. Acute lactic acidosis secondary to sepsis. Benign essential hypertension. Ventral hernia. Acute kidney injury secondary to sepsis, hypertension, and acute tubular necrosis. Plan: Plan dated 01/31/2023. The patient's FiO2 was dropped from 35%, down to 30%. The patient remains on sa line, amiodarone, and TPN at 60 mL an hour. Propofol has been discontinued. The patient will get a spontaneous breathing trial on pressure support of 5, and CPAP of 5. The patient is currently on Zosyn. Labs, x-rays, medications are reviewed. The patient is a DO NOT RESUSCITATE patient. We will clarify with the family, that should the patient be extubated, he will not be reintubated. We will continue to follow the patient and make recommendations along the way. Prognosis is certainly poor. Plan dated 02/01/2023. The patient will be extubated, today, and not be reintubated, should he develop respiratory failure. We confirmed that with the family. The patient's has been weaned off of norepinephrine, but continues on TPN, and heparin. The patient also continues on amiodarone. The patient continues on Zosyn and Eraxis. Labs, x-rays, and medications are reviewed. The patient is a DO NOT RESUSCITATE patient. Additional recommendations and suggestions are forthcoming. Prognosis is guarded. Plan dated 02/02/2023. The patient was successfully extubated, February 01. He's currently on between 2-3 L. Saturations are adequate. The patient is a bit lethargic and sleepy. He remains on saline, which is reduced down to 20 mL an hour. The patient's getting TPN at 45 mL an hour, amiodarone 0.5 mg/m, and heparin via weightbase protocol. Zosyn and hydrocortisone a discontinued. The patient has significant scrotal edema. We will continue to follow make recommendations and suggestions along the way. Prognosis is guarded. Plan dated 02/03/2023. The patient was successfully extubated on February 01. He is on oxygen at 3 L. Unfortunately, the patient remains on amiodarone 0.5 mg/m. In addition, the patient's on TPN, and IV heparin. The patient has significant diffuse edema and anasarca, or edema. We added 12.5 g of 25% albumin, twice a day. A PICC line w ill be placed. The patient continues on Zosyn and he Eraxis. Labs, x-rays, and medications are reviewed. The patient's overall prognosis remains guarded. Plan dated 02/04/2023. The patient was successfully extubated on February 01. He remains on oxygen at 3 L. In addition, he continues on TPN at 45 mL an hour, and amiodarone at 1 mg/m, along with IV heparin. The patient is getting albumin, twice today, 12.5 g, to see if we can transiently increase colloid osmotic pressure, and reduce so me of his edema. Labs, x-rays, and medications are reviewed. The patient remains on Zosyn and Eraxis. Prognosis is certainly guarded. We will continue to follow the patient and make recommendations. He is a DO NOT RESUSCITATE patient. Time with Patient: Greater than 30
[2023-02-04 11:29] LABS: Glucose,Whole Blood 89 mg/dL (70-110)
--- NOTE | 2023-02-04 11:44 | IR ---
PICC LINE PLACEMENT: HISTORY: TPN therapy PROCEDURE: Ultrasound guidance of PICC line placement. COMPLICATIONS: None ANESTHESIA: 1. 1% Lidocaine locally. FINDINGS/TECHNIQUE: The procedure was explained to the patient. The risks, complications, benefits and alternatives were discussed and any questions were answered. Informed consent was obtained. The patient was placed supine on the fluoroscopic table and prepped and draped in the usual sterile fash ion. Utilizing a 21 gauge needle and sonographic guidance, access in the left basilic vein was achi eved and there is placement of a 0.018 guidewire. The vein is patent. A 5-F. sheath was placed over the guidewire. The guidewire and dilator were removed and a 5-F. Double lumen PICC line was placed through the sheath with the chest x-ray confirming the tip at the level of the SVC. The sheath was r emoved, the catheter was flushed and sutured into position. The patient was stable throughout the pr ocedure and remained stable upon discharge from the Department of Radiology. The vein puncture was patent under ultrasound. A hernandez scale image was obtained to document patency of the vein punctured. All elements of the maximal barrier technique were utilized. IMPRESSION: 1. Successful PICC line placement under ultrasound performed bedside within the ICU.
--- NOTE | 2023-02-04 11:56 | CT ---
EXAMINATION TYPE: CT abdomen pelvis wo con DATE OF EXAM: 02/04/2023 COMPARISON: 01/26/2023 HISTORY: Follow up for ischemic bowel. CT DLP: 1312.3 mGycm Examination of the solid and hollow viscera is limited given the lack of contrast. FINDINGS: LUNG BASES: No evidence for nodule. No evidence for infiltrate. Large basilar pleural effusions with compressive atelectasis. LIVER/GB: Calcified gallstones redemonstrated. No space-occupying hepatic lesion. PANCREAS: No pancreatic mass identified. No inflammatory process seen. SPLEEN: No evidence for splenomegaly. No intrasplenic lesions seen. ADRENALS: No adrenal nodules identified. No evidence for thickening. KIDNEYS: No evidence for renal mass. No nephrolithiasis. No hydronephrosis. BOWEL: Large to severe amount of ascites throughout the abdomen and pelvis. Midline skin kaleigh note d. Left-sided ostomy noted. Lack of GI contrast limits evaluation. Evaluation is also limited for pos sible leak or abscess. There are couple of foci of free air likely postoperative in nature. Hyperdens e bowel wall is noted right hemicolon and portions of the transverse colon which is nonspecific howev er I cannot exclude intramural hemorrhage. It does not appear that GI contrast has been standard in t he recent past. The remainder of the small and large bowel is poorly delineated given the diffuse asc ites. Lymph nodes: No evidence for adenopathy greater than 1 cm. Abdominal aorta: Atheromatous changes seen. No evidence for aneurysm. Genital organs: No significant abnormality. Other: Diffuse subcutaneous edema compatible with anasarca. IMPRESSION: 1.Hyperdense bowel wall is noted right hemicolon and portions of the transverse colon which is nonspe cific however I cannot exclude intramural hemorrhage. It does not appear that GI contrast has been ad ministered in the recent past. 2. Postoperative changes with small amount of residual air. Examination is limited for the exclusion of leak or abscess. 3. Large amount of ascites throughout the abdomen and pelvis and features of anasarca. Basilar pleura l effusions and atelectasis.
[2023-02-04] MEDS: HYDROmorphone 1 MG/ML 1 ML SYRINGE IVP PRN (12:05)
[2023-02-04] MEDS: HYDROPHILIC CREAM 180 GM TUBE TOPICAL SCH (12:05)
[2023-02-04 14:57] VITALS: BMI 26.4
--- NOTE | 2023-02-04 15:03 | P.PN ---
Subjective Progress Note Date: 02/04/23 Principal diagnosis: Sepsis/ischemic small intestine Patient is a 67-year-old male with a past medical history negative for atrial fibrillation diabetes mellitus hypertension PE seizure disorder and dementia patient was brought into the hospital for evaluation of a syncopal episode , patient did have a CT abdominal pelvis suggestive of small bowel ischemia status post laparotomy patient was noticed to have ischemic small bowel intestine intra-abdominal adhesion requiring small bowel resection and jejunostomy and admission to the ICU. On today's evaluation of that is 02/04/2023, the patient continues to be afebrile, the patient is hemodynamically stable , the patient is breathing comfortably on 4 L nasal cannula oxygen patient is more awake and has been complaining of some abdominal pain unable to quantify it any further no vomiting has been reported did have a congested cough Patient white count is 24.3, creatinine 0.45 as of yesterday no laboratory today , sputum with vinay blood culture negative Objective - Vital Signs Vital signs: Vital Signs Temp 98.6 F 02/04/23 04:00 Pulse 82 02/04/23 10:00 Resp 27 H 02/04/23 10:00 BP 123/79 02/04/23 10:00 Pulse Ox 94 L 02/04/23 10:00 FiO2 30 02/01/23 10:15 Intake & Output 02/03/23 02/04/23 02/04/23 18:59 06:59 18:59 Intake Total 2246.5 8328.430 0240 Output Total 605 1155 520 Balance 1641.5 572.774 506 Weight 88 kg 90.8 kg Intake: IV 930 1255 130 Albumin Human 25% 50 ml 50 50 In Empty Bag 1 bag @ 50 mls/hr IVPB BID [facility] Rx#: [id number] Anidulafungin 100 mg In 100 Sodium Chloride 0.9% 100 ml @ 84 mls/hr IVPB Q24H [facility] Rx#:[id number] Mvi, Adult No.4 with Vit 640 845 90 K 10 ml Trace (Conc-1Ml/ Dose) 1 ml Sodium Acetate 30 meq Calcium Gluconate 1.25 gm Potassium Acetate 40 meq Potassium Phosphate 24 mmol In Amino Acid 5%-D15w 1,000 ml @ 45 mls/hr IV . [id number] [facility] Rx#:[id number] Sodium Chloride 0.9% 1, 240 260 40 000 ml @ 20 mls/hr IV . Q24H [facility] Rx#:[id number] Intake, IV Titration 1316.5 472.774 896 Amount Amiodarone 360 mg In 372.774 200 Dextrose 5% in Water 200 ml @ 1 MG/MIN 33.333 mls/ hr IV .Q6H [facility] Rx#: [id number] Heparin Sod,Pork in 0.45% 250 NaCl 25,000 unit In 0.45 % NaCl 1 250ml.bag @ 12 UNITS/KG/HR 7.68 mls/hr IV .Q24H [facility] Rx#: [id number] Mvi, Adult No.4 with Vit 1066.5 696 K 10 ml Trace (Conc-1Ml/ Dose) 1 ml Sodium Acetate 30 meq Calcium Gluconate 1.25 gm Potassium Acetate 40 meq Potassium Phosphate 24 mmol In Amino Acid 5%-D15w 1,000 ml @ 45 mls/hr IV . [id number] [facility] Rx#:[id number] Piperacillin-Tazobactam 3 100 .375 gm In Sodium Chloride 0.9% 100 ml @ 25 mls/hr IVPB Q8H [facility] Rx#: [id number] Output: Urine 405 555 120 Stool 200 600 400 Other: Voiding Method Indwelling Catheter Indwelling Catheter Indwelling Catheter ABP, PAP, CO, CI - Last Documented Arterial Blood Pressure 112/78 - Exam GENERAL DESCRIPTION: An elderly male lying in bed in no distress RESPIRATORY SYSTEM: Unlabored breathing , decreased breath sounds at bases HEART: S1 S2 regular rate and rhythm , ABDOMEN: Soft , midline incision is intact EXTREMITIES: No edema feet - Labs CBC & Chem 7: 02/03/23 05:09 02/04/23 04:09 Labs: Abnormal Lab Results - Last 24 Hours (Table) 02/03/23 02/03/23 02/04/23 Range/Units 11:37 17:37 00:20 APTT (22.0-30.0) sec Chloride (98-107) mmol/L BUN (9-20) mg/dL Creatinine (0.66-1.25) mg/dL Glucose (74-99) mg/dL POC Glucose (mg/dL) 119 H 152 H 141 H (70-110) mg/dL Calcium (8.4-10.2) mg/dL Total Bilirubin (0.2-1.3) mg/dL AST (17-59) U/L ALT (4-49) U/L Total Protein (6.3-8.2) g/dL Albumin (3.5-5.0) g/dL 02/04/23 02/04/23 02/04/23 Range/Units 04:04 04:09 05:53 APTT 44.3 H (22.0-30.0) sec Chloride 114 H (98-107) mmol/L BUN 26 H (9-20) mg/dL Creatinine 0.47 L (0.66-1.25) mg/dL Glucose 119 H (74-99) mg/dL POC Glucose (mg/dL) 134 H (70-110) mg/dL Calcium 6.9 L (8.4-10.2) mg/dL Total Bilirubin 8.5 H (0.2-1.3) mg/dL AST 73 H (17-59) U/L ALT 89 H (4-49) U/L Total Protein 3.8 L (6.3-8.2) g/dL Albumin 1.5 L (3.5-5.0) g/dL Microbiology - Last 24 Hours (Table) 02/02/23 15:54 Blood Culture - Preliminary Blood Assessment and Plan (1) Ischemic bowel disease Current Visit: Yes Status: Acute Priority: High Code(s): K55.9 - VASCULAR DISORDER OF INTESTINE, UNSPECIFIED SNOMED Code(s): 58611270 (2) Sepsis Current Visit: Yes Status: Acute Priority: High Code(s): A41.9 - SEPSIS, UNSPECIFIED ORGANISM SNOMED Code(s): 55499630 Plan: 1patient present to hospital with sepsis/septic shock in this patient with hypotension fever elevated white count tachycardia source is abdominal pain in this patient noticed to have small bowel ischemia s/p laparotomy with small bowel resection and jejunostomy, we will need to cover for the enteric gram- negative the likely pathogen for this episode of sepsis/septic shock. 2patient afebrile , however the patient did have persistently elevated white count patient did have CT of abdominal pelvis, postoperative changes large amount of ascites and hyperdense bowel wall transverse colon with a question of intramural hemorrhage await review of the CT by surgeon 3-patient to continue with Zosyn and Eraxis and we will repeat his CBC and inflammatory markers with a.m. lab Dictation was produced using [employer] dictation software. please excuse any grammatical, word or spelling errors. Time with Patient: Less than 30
[2023-02-04] MEDS: FAT EMULSION 20% 250 ML in EMPTY BAG 1 BAG IV SCH (15:11)
[2023-02-04] MEDS ORDERED: FAT EMULSION 20% 250 ML in EMPTY BAG 1 BAG IV SCH (16:00)
--- NOTE | 2023-02-04 16:16 | P.PN ---
Subjective Progress Note Date: 02/04/23 Patient is a 67 -year-old male with history of high blood pressure, atrial fibrillation, diabetes mellitus type 2, obstructive uropathy, and long-standing ventral hernia who presented to the ER from his [facility] due to syncopal episode. In the ER he underwent extensive evaluation. On arrival was vital signs were remarkable for blood pressure 67/33 and a pulse of 60. Laboratory analysis was reviewed including a CBC, coagulation studies, CMP, liver function, lactic acid, and troponin which were remarkable for white blood cell count 15, hemoglobin 8.7, hematocrit 29.9, INR 1.6, carbon dioxide 14, anion gap 19, lactic acid 9.6. Influenza A/B/RSV/COVID-[address] abdomen and pelvis completed which showed small bowel ischemia versus obstruction, ascites, cholelithiasis. In the ER he was given 2 L normal saline. He remained hypotensive and was started on norepinephrine and Zosyn. Arrangements were made for admission to the ICU. He was seen by surgery, he was administered a dose of K Centra and underwent urgent exploratory laparotomy with small bowel resection and jejunostomy. The majority of the small bowel was resected with approximately 1 foot of jejunum that was viable, and duodenum was also viable. 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 Postoperatively he required 4 untis of pRBC. The night after surgery the patient's vasopressor requirements increased and he was subsequently started on phenylephrine and vasopressin. His cortisol was 16 which is not adequate for his state of shock and he was started on cortef. On 01/28 he went into A. fib with RVR necessitating an amiodarone drip. He vaso and phe nylephrine were able to be weaned off by the morning of 01/29. He struggled with sinus tachycardia on 01/29 and vasopressors were adjusted. 02/01 Patient was seen and examined. Extubated this morning. CBC shows WBC count of 17.6, Hg 7.9, Plt 80. Coag panel APTT 34.5. ABG pH 7.4, pCO2 37. BMP Cl 114, bicab 21, BUN 25, Cr 0.43, glucose 141, Ca 6.6. Phos 2.5. Mag 2.3. Amiodarone 0.5 mg/min. Antibiotics include Anidulafungin and Zosyn. Currently on TPN. Heparin drip at 21 units/kg/hr. Solucortef at 50 mg IV BID. Levophed discontinued at this time. NS at 125 cc/hr. CXR shows bibasilar opacities. 02/02 Patient was seen and examined. Patient reports uncontrolled pain in his abdomen. Dilaudid increased from 0.5 to 1mg and Toradol added. CBC shows WBC count of 24.1, Hg 8.3, Plt 78. Coag panel APTT 47.9. BMP Cl 112, BUN 21, Cr 0.42, glucose 128, Ca 6.7. Phos 2.6. Mag 2.1. Ionized Ca 4.4. Recieving Ca gluconate 1g IV today. Amiodarone discontinued. Antibiotics include Anidulafungin and Zosyn. Currently on TPN. Heparin drip at 25 units/kg/hr. Solucortef at 50 mg IV BID. Levophed weaned off yesterday. NS at 20 cc/hr. CXR shows persistent bibasilar opacities. 02/03 Patient was seen and examined. He remains tachycardic with HR in the 130s. Amiodarone drip increased to 1. Attempt made to try Cardizem and Metoprolol but discontinued due to low BP. Plans for albumin 25% x 2 today. CBC shows WBC count of 24.3, Hg 9.4, Plt 107. Coag panel APTT 46.4. BMP Cl 111, Cr 0.45, Ca 7. Phos 2.8. Mag 2. 02/04 Patient was seen and examined. HR and BP much improved since yesterday. Continues to be on Amiodarone 1 and Heparin drip. APTT 44.3. BMP shows Cl 114, BUN 26, Cr 0.47, glucose 119, Ca 6.9, T.Bili 8.5, AST 73, ALT 89. Mag 2. Phos 2.9. Vital signs reviewed General: Ill appearing, mild distress, appears at stated age Cardiovascular: S1S2 reg, no murmur Lungs: Course bs bilateral, no rhonchi, no rales , no accessory muscle use Abdominal: soft, nontender to palpation, no guarding, no appreciable organomegaly, +ostomy, + midline dressing without soak through Ext: + gross muscle atrophy, no edema b/l lower extremities, no contractures Neuro: no FND Psych: Awake, can follow commands Ischemic colitis s/p small bowel resection with jejunostomy, will result in short gut syndrome requiring TPN Acute hypoxic respiratory failure Septic shock due to ischemic bowel Shock liver Cardiomyopathy with EF 35-40%, suspect sepsis induced Hypocalcemia Atrial fibrillation with RVR Anemia, due to acute blood loss s/p 4 units pRBC Coagulopathy Thrombocytopenia Resolved: Hypophosphatemia, Lactic acidosis, OLE Chronic: Hypertension, Cirrhosis, Constipation, Gastric ulcer, Encephalopathy Based on my assessment of this patient, this patient meets a high complexity level of care. Patient has an acute diagnosis of septic shock secondary to ischemic colitis s/p small bowel resection with jejunostomy complicated with ischemic cardiomyopathy and acute blood loss anemia requring 4 unit PRBC that poses a threat to life or bodily function. Ischemic colitis: s/p small bowel resection with jejunostomy 01/26. 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 Protonix 40 mg IV BID. Continue Zosyn. Acute hypoxic respiratory failure: CXR as above. Extubated 02/01. He is not to be re-intubated. Septic shock due to ischemic bowel: Blood Cx negative. Sputum Cx vinay albicans. Currently on Zosyn (D9) and Anidulafungin (D5). Weaned off Levophed 02/01. ID on board. Shock liver: Trend AST/ALT Cardiomyopathy with EF 35-40%, suspect sepsis induced Hypocalcemia: On TPN. Hypophosphatemia resolved. Atrial fibrillation with RVR: Currently in sinus. Heparin drip. 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 Anemia, due to acute blood loss s/p 4 units pRBC: Stable. Transfuse if Hg < 7.0. Hematology recommends anticoagulation as long his platelets remained greater than 50,000 and there is no gross bleeding. Coagulopathy: APTT montoring while on Heparin drip. Thrombocytopenia: Continue to monitor while on Heparin. Heparin drip for DVT prophylaxis. NO CODE. I have reviewed the following fitness consultant notes: I have reviewed the results of the following tests: CBC, Coag panel, CMP, Mag, Phos I have ordered the following tests: Agree with CBC, BMP, Phos, Mag. I have discussed the care of this patient with the following independent historian: I have independently interpreted the following test below: I have discussed the management of this patient with the following physician: This patient has a high risk of morbidity due to the following reasons: Patient is currently on heparin drip that requires intensive monitoring for APTT for toxicity. Objective - Vital Signs Vital signs: Vital Signs Temp 98.9 F 02/04/23 16:00 Pulse 76 02/04/23 16:00 Resp 25 H 02/04/23 16:00 BP 128/67 02/04/23 16:00 Pulse Ox 93 L 02/04/23 16:00 FiO2 30 02/01/23 10:15 Intake & Output 02/03/23 02/04/23 02/04/23 18:59 06:59 18:59 Intake Total 2246.5 2680.313 3930.554 Output Total 605 1155 1175 Balance 1641.5 572.774 591.554 Weight 88 kg 90.8 kg 90.8 kg Intake: IV 930 1255 685 Albumin Human 25% 50 ml 50 50 In Empty Bag 1 bag @ 50 mls/hr IVPB BID [facility] Rx#: [id number] Anidulafungin 100 mg In 100 Sodium Chloride 0.9% 100 ml @ 84 mls/hr IVPB Q24H [facility] Rx#:[id number] Mvi, Adult No.4 with Vit 640 845 505 K 10 ml Trace (Conc-1Ml/ Dose) 1 ml Sodium Acetate 30 meq Calcium Gluconate 1.25 gm Potassium Acetate 40 meq Potassium Phosphate 24 mmol In Amino Acid 5%-D15w 1,000 ml @ 45 mls/hr IV . [id number] [facility] Rx#:[id number] Sodium Chloride 0.9% 1, 240 260 180 000 ml @ 20 mls/hr IV . Q24H [facility] Rx#:[id number] Intake, IV Titration 1316.5 400.176 9291.554 Amount Amiodarone 360 mg In 372.774 385.554 Dextrose 5% in Water 200 ml @ 1 MG/MIN 33.333 mls/ hr IV .Q6H [facility] Rx#: [id number] Heparin Sod,Pork in 0.45% 250 NaCl 25,000 unit In 0.45 % NaCl 1 250ml.bag @ 12 UNITS/KG/HR 7.68 mls/hr IV .Q24H [facility] Rx#: [id number] Mvi, Adult No.4 with Vit 1066.5 696 K 10 ml Trace (Conc-1Ml/ Dose) 1 ml Sodium Acetate 30 meq Calcium Gluconate 1.25 gm Potassium Acetate 40 meq Potassium Phosphate 24 mmol In Amino Acid 5%-D15w 1,000 ml @ 45 mls/hr IV . [id number] [facility] Rx#:[id number] Piperacillin-Tazobactam 3 100 .375 gm In Sodium Chloride 0.9% 100 ml @ 25 mls/hr IVPB Q8H [facility] Rx#: [id number] Output: Urine 405 555 475 Stool 200 600 700 Other: Voiding Method Indwelling Catheter Indwelling Catheter Indwelling Catheter ABP, PAP, CO, CI - Last Documented Arterial Blood Pressure 112/78 - Labs CBC & Chem 7: 02/03/23 05:09 02/04/23 04:09 Labs: Abnormal Lab Results - Last 24 Hours (Table) 02/03/23 02/04/23 02/04/23 Range/Units 17:37 00:20 04:04 APTT 44.3 H (22.0-30.0) sec Chloride (98-107) mmol/L BUN (9-20) mg/dL Creatinine (0.66-1.25) mg/dL Glucose (74-99) mg/dL POC Glucose (mg/dL) 152 H 141 H (70-110) mg/dL Calcium (8.4-10.2) mg/dL Total Bilirubin (0.2-1.3) mg/dL AST (17-59) U/L ALT (4-49) U/L Total Protein (6.3-8.2) g/dL Albumin (3.5-5.0) g/dL 02/04/23 02/04/23 Range/Units 04:09 05:53 APTT (22.0-30.0) sec Chloride 114 H (98-107) mmol/L BUN 26 H (9-20) mg/dL Creatinine 0.47 L (0.66-1.25) mg/dL Glucose 119 H (74-99) mg/dL POC Glucose (mg/dL) 134 H (70-110) mg/dL Calcium 6.9 L (8.4-10.2) mg/dL Total Bilirubin 8.5 H (0.2-1.3) mg/dL AST 73 H (17-59) U/L ALT 89 H (4-49) U/L Total Protein 3.8 L (6.3-8.2) g/dL Albumin 1.5 L (3.5-5.0) g/dL Microbiology - Last 24 Hours (Table) 02/02/23 15:54 Blood Culture - Preliminary Blood
[2023-02-04] MEDS: ANIDULAFUNGIN 100 MG in SODIUM CHLORIDE 0.9% 100 ML IVPB SCH (17:19)
[2023-02-04 17:22] LABS: Glucose,Whole Blood 104 mg/dL (70-110)
[2023-02-04 18:49] LABS: Anisocytosis Moderate; HCT 23.6 % (39.0-53.0); Hypochromasia Marked; MCH 25.6 pg (25.0-35.0); MCHC 31.4 g/dL (31.0-37.0); MCV 81.5 fL (80.0-100.0); Mean Platelet Volume 11.2; Microcytosis Slight; Platelet Count 121 k/uL (150-450); Poikilocytosis Slight; RBC 2.89 m/uL (4.30-5.90); RDW 22.1 % (11.5-15.5); WBC 17.9 k/uL (3.8-10.6)
[2023-02-04 18:58] LABS: HGB 7.4 gm/dL (13.0-17.5)
[2023-02-04] MEDS: 1: MVI, ADULT NO.4 WITH VIT K 10 ML, TRACE (CONC-1ML/DOSE) 1 ML, SODIUM ACETATE 30 MEQ, IV SCH ×7 (23:40)
[2023-02-05 00:27] LABS: Glucose,Whole Blood 92 mg/dL (70-110)
[2023-02-05] MEDS: AMIODARONE 360 MG in DEXTROSE 5% IN WATER 200 ML IV SCH ×6 (01:07→12:37)
[2023-02-05] MEDS: DILTIAZEM 125 MG in SODIUM CHLORIDE 0.9% 100 ML IV SCH ×2 (04:56→14:13)
[2023-02-05] MEDS: INSULIN ASPART (NovoLOG) 100 UNIT/ML VIAL SQ SCH ×4 (04:56→18:53)
[2023-02-05] MEDS: KETOROLAC 15 MG/ML 1 ML VIAL IVP PRN ×2 (04:57→12:43)
[2023-02-05] MEDS: PIPERACILLIN-TAZOBACTAM 3.375 GM in SODIUM CHLORIDE 0.9% 100 ML IVPB SCH ×3 (05:07→22:56)
[2023-02-05] MEDS: ARTIFICIAL TEARS-HYPROMELLOSE DROPS 15 ML BTL RIGHT EYE SCH ×3 (05:07→05:08)
[2023-02-05] MEDS: HYDROmorphone 1 MG/ML 1 ML SYRINGE IVP PRN ×3 (06:12→20:29)
[2023-02-05 06:18] LABS: Glucose,Whole Blood 114 mg/dL (70-110)
[2023-02-05 08:53] LABS: Anisocytosis Moderate; Basophils % (A) 0 %; Eosinophils # (A) 0.2 k/uL (0-0.7); Eosinophils % (A) 1 %; HCT 24.4 % (39.0-53.0); HGB 7.6 gm/dL (13.0-17.5); Hypochromasia Marked; Lymphocytes # (A) 0.6 k/uL (1.0-4.8); Lymphocytes % (A) 4 %; MCH 25.2 pg (25.0-35.0); MCHC 31.2 g/dL (31.0-37.0); MCV 80.7 fL (80.0-100.0); Mean Platelet Volume 11.1; Microcytosis Moderate; Monocytes # (A) 0.5 k/uL (0-1.0); Monocytes % (A) 3 %; Neutrophils # (A) 14.8 k/uL (1.3-7.7); Neutrophils % (A) 91 %; Platelet Count 170 k/uL (150-450); Poikilocytosis Slight; RBC 3.03 m/uL (4.30-5.90); RDW 22.6 % (11.5-15.5); WBC 16.2 k/uL (3.8-10.6)
[2023-02-05] MEDS: HYDROPHILIC CREAM 180 GM TUBE TOPICAL SCH (08:56)
[2023-02-05] MEDS: PANTOPRAZOLE 40 MG/10 ML VIAL IVP SCH ×2 (08:57→20:29)
[2023-02-05] MEDS: ALBUMIN HUMAN 25% 50 ML in EMPTY BAG 1 BAG IVPB SCH ×2 (08:57→20:30)
[2023-02-05 09:17] LABS: African American GFR (CKD) >90 (>60 ml/min/1.73 sqM); Anion Gap 5 mmol/L; Blood Urea Nitrogen 23 mg/dL (9-20); Carbon Dioxide 22 mmol/L (22-30); Chloride 111 mmol/L (98-107); Glucose 113 mg/dL (74-99); Non-African American GFR(CKD) >90 (>60 ml/min/1.73 sqM); Phosphorus 3.5 mg/dL (2.5-4.5); Potassium 4.6 mmol/L (3.5-5.1); Sodium 138 mmol/L (137-145)
--- NOTE | 2023-02-05 09:39 | P.PN ---
Subjective Progress Note Date: 02/05/23 Principal diagnosis: Ischemic bowel Patient remains in the ICU. White blood cell count improved at 16. Says his pain is slightly better. Still appears mildly uncomfortable. Hemodynamically is stable. Remains on amiodarone. Remains on TPN. Patient has had serous drainage from the previous right groin triple-lumen catheter site. Objective - Vital Signs Vital signs: Vital Signs Temp 98.3 F 02/05/23 08:00 Pulse 71 02/05/23 09:00 Resp 25 H 02/05/23 09:00 BP 130/84 02/05/23 09:00 Pulse Ox 92 L 02/05/23 09:00 FiO2 30 02/01/23 10:15 Intake & Output 02/04/23 02/05/23 02/05/23 18:59 06:59 18:59 Intake Total 2186.554 1549.998 295 Output Total 1295 1265 35 Balance 891.554 284.998 260 Weight 90.8 kg 87 kg Intake: IV 855 1080 95 Mvi, Adult No.4 with Vit 635 840 75 K 10 ml Trace (Conc-1Ml/ Dose) 1 ml Sodium Acetate 30 meq Calcium Gluconate 1.25 gm Potassium Acetate 40 meq Potassium Phosphate 24 mmol In Amino Acid 5%-D15w 1,000 ml @ 45 mls/hr IV . [id number] [facility] Rx#:[id number] Sodium Chloride 0.9% 1, 220 240 20 000 ml @ 20 mls/hr IV . Q24H [facility] Rx#:[id number] Intake, IV Titration 1331.554 469.998 200 Amount Amiodarone 360 mg In 385.554 369.998 200 Dextrose 5% in Water 200 ml @ 1 MG/MIN 33.333 mls/ hr IV .Q6H [facility] Rx#: [id number] Heparin Sod,Pork in 0.45% 250 NaCl 25,000 unit In 0.45 % NaCl 1 250ml.bag @ 12 UNITS/KG/HR 7.68 mls/hr IV .Q24H [facility] Rx#: [id number] Mvi, Adult No.4 with Vit 696 K 10 ml Trace (Conc-1Ml/ Dose) 1 ml Sodium Acetate 30 meq Calcium Gluconate 1.25 gm Potassium Acetate 40 meq Potassium Phosphate 24 mmol In Amino Acid 5%-D15w 1,000 ml @ 45 mls/hr IV . [id number] [facility] Rx#:[id number] Piperacillin-Tazobactam 3 100 .375 gm In Sodium Chloride 0.9% 100 ml @ 25 mls/hr IVPB Q8H [facility] Rx#: [id number] Output: Urine 595 665 35 Stool 700 600 Other: Voiding Method Indwelling Catheter Indwelling Catheter ABP, PAP, CO, CI - Last Documented Arterial Blood Pressure 112/78 - Exam Abdomen: Soft, mild distention, incision clean and dry without drainage, mild tenderness, ostomy pink with bilious output - Labs CBC & Chem 7: 02/05/23 07:59 02/05/23 07:59 Labs: Abnormal Lab Results - Last 24 Hours (Table) 02/04/23 02/04/23 02/05/23 Range/Units 04:09 18:43 06:17 WBC 17.9 H (3.8-10.6) k/uL RBC 2.89 L (4.30-5.90) m/uL Hgb 7.4 L D (13.0-17.5) gm/dL Hct 23.6 L (39.0-53.0) % RDW 22.1 H (11.5-15.5) % Plt Count 121 L (150-450) k/uL APTT (22.0-30.0) sec Chloride (98-107) mmol/L BUN (9-20) mg/dL Creatinine (0.66-1.25) mg/dL Glucose (74-99) mg/dL POC Glucose (mg/dL) 114 H (70-110) mg/dL Calcium (8.4-10.2) mg/dL Procalcitonin 1.08 H (0.02-0.09) ng/mL 02/05/23 02/05/23 02/05/23 Range/Units 07:59 07:59 07:59 WBC 16.2 H (3.8-10.6) k/uL RBC 3.03 L (4.30-5.90) m/uL Hgb 7.6 L (13.0-17.5) gm/dL Hct 24.4 L (39.0-53.0) % RDW 22.6 H (11.5-15.5) % Plt Count (150-450) k/uL APTT 40.2 H (22.0-30.0) sec Chloride 111 H (98-107) mmol/L BUN 23 H (9-20) mg/dL Creatinine 0.42 L (0.66-1.25) mg/dL Glucose 113 H (74-99) mg/dL POC Glucose (mg/dL) (70-110) mg/dL Calcium 7.0 L (8.4-10.2) mg/dL Procalcitonin (0.02-0.09) ng/mL Microbiology - Last 24 Hours (Table) 02/02/23 15:54 Blood Culture - Preliminary Blood Assessment and Plan (1) Ischemic bowel disease Narrative/Plan: 67-year-old male with ischemic small bowel status post extensive small bowel resection. Patient remains in the ICU on amiodarone for atrial fibrillation with RVR. Patient with significant anasarca. CAT scan from yesterday reviewed. Significant ascites is identified. Continue diuresis. Plan repeat swallow evaluation early this week. Continue antibiotics. Will follow. Current Visit: Yes Status: Acute Priority: High Code(s): K55.9 - VASCULAR DISORDER OF INTESTINE, UNSPECIFIED SNOMED Code(s): 95964076
--- NOTE | 2023-02-05 11:03 | P.PN ---
Subjective Progress Note Date: 02/05/23 Patient is a 67 -year-old male with history of high blood pressure, atrial fibrillation, diabetes mellitus type 2, obstructive uropathy, and long-standing ventral hernia who presented to the ER from his long-term due to syncopal episode. In the ER he underwent extensive evaluation. On arrival was vital signs were remarkable for blood pressure 67/33 and a pulse of 60. Laboratory analysis was reviewed including a CBC, coagulation studies, CMP, liver function, lactic acid, and troponin which were remarkable for white blood cell count 15, hemoglobin 8.7, hematocrit 29.9, INR 1.6, carbon dioxide 14, anion gap 19, lactic acid 9.6. Influenza A/B/RSV/COVID-[address] abdomen and pelvis completed which showed small bowel ischemia versus obstruction, ascites, cholelithiasis. In the ER he was given 2 L normal saline. He remained hypotensive and was started on norepinephrine and Zosyn. Arrangements were made for admission to the ICU. He was seen by surgery, he was administered a dose of K Centra and underwent urgent exploratory laparotomy with small bowel resection and jejunostomy. The majority of the small bowel was resected with approximately 1 foot of jejunum that was viable, and duodenum was also viable. 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 Postoperatively he required 4 untis of pRBC. The night after surgery the patient's vasopressor requirements increased and he was subsequently started on phenylephrine and vasopressin. His cortisol was 16 which is not adequate for his state of shock and he was started on cortef. On 01/28 he went into A. fib with RVR necessitating an amiodarone drip. He vaso and phe nylephrine were able to be weaned off by the morning of 01/29. He struggled with sinus tachycardia on 01/29 and vasopressors were adjusted. 02/01 Patient was seen and examined. Extubated this morning. CBC shows WBC count of 17.6, Hg 7.9, Plt 80. Coag panel APTT 34.5. ABG pH 7.4, pCO2 37. BMP Cl 114, bicab 21, BUN 25, Cr 0.43, glucose 141, Ca 6.6. Phos 2.5. Mag 2.3. Amiodarone 0.5 mg/min. Antibiotics include Anidulafungin and Zosyn. Currently on TPN. Heparin drip at 21 units/kg/hr. Solucortef at 50 mg IV BID. Levophed discontinued at this time. NS at 125 cc/hr. CXR shows bibasilar opacities. 02/02 Patient was seen and examined. Patient reports uncontrolled pain in his abdomen. Dilaudid increased from 0.5 to 1mg and Toradol added. CBC shows WBC count of 24.1, Hg 8.3, Plt 78. Coag panel APTT 47.9. BMP Cl 112, BUN 21, Cr 0.42, glucose 128, Ca 6.7. Phos 2.6. Mag 2.1. Ionized Ca 4.4. Recieving Ca gluconate 1g IV today. Amiodarone discontinued. Antibiotics include Anidulafungin and Zosyn. Currently on TPN. Heparin drip at 25 units/kg/hr. Solucortef at 50 mg IV BID. Levophed weaned off yesterday. NS at 20 cc/hr. CXR shows persistent bibasilar opacities. 02/03 Patient was seen and examined. He remains tachycardic with HR in the 130s. Amiodarone drip increased to 1. Attempt made to try Cardizem and Metoprolol but discontinued due to low BP. Plans for albumin 25% x 2 today. CBC shows WBC count of 24.3, Hg 9.4, Plt 107. Coag panel APTT 46.4. BMP Cl 111, Cr 0.45, Ca 7. Phos 2.8. Mag 2. 02/04 Patient was seen and examined. HR and BP much improved since yesterday. Continues to be on Amiodarone 1 and Heparin drip. APTT 44.3. BMP shows Cl 114, BUN 26, Cr 0.47, glucose 119, Ca 6.9, T.Bili 8.5, AST 73, ALT 89. Mag 2. Phos 2.9. PICC line placed today. 02/05 Patient was seen and examined. Rate controlled and BP within normal limits. CBC shows WBC count 16.2 and Hg 7.6. APTT 40.2. BMP Cl 111, BUN 23, Cr 0.42, glucose 113, Ca 7. Phos 3.5. Mg 2. CT AP was done due to drop in Hg which showed hyperdense bowel wall cannot exclude intramural hemorrhage and large amount of anasarca, pleural effusion and atelectasis. Surgery note reviewed, plans for repeat swallow evaluation early next week. Vital signs reviewed General: Ill appearing, no distress, appears at stated age Cardiovascular: S1S2 reg, no murmur Lungs: Course bs bilateral, no rhonchi, no rales , no accessory muscle use Abdominal: soft, nontender to palpation, no guarding, no appreciable organomegaly, +ostomy, + midline dressing without soak through Ext: + gross muscle atrophy, no edema b/l lower extremities, no contractures Neuro: no FND Psych: Awake, can follow commands Ischemic colitis s/p small bowel resection with jejunostomy, will result in short gut syndrome requiring TPN Acute hypoxic respiratory failure Septic shock due to ischemic bowel Shock liver Cardiomyopathy with EF 35-40%, suspect sepsis induced Hypocalcemia Atrial fibrillation with RVR Anemia, due to acute blood loss s/p 4 units pRBC Coagulopathy Thrombocytopenia Resolved: Hypophosphatemia, Lactic acidosis, OLE Chronic: Hypertension, Cirrhosis, Constipation, Gastric ulcer, Encephalopathy Based on my assessment of this patient, this patient meets a high complexity level of care. Patient has an acute diagnosis of septic shock secondary to ischemic colitis s/p small bowel resection with jejunostomy complicated with ischemic cardiomyopathy and acute blood loss anemia requring 4 unit PRBC that poses a threat to life or bodily function. Ischemic colitis: s/p small bowel resection with jejunostomy 01/26. 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 Protonix 40 mg IV BID. Continue Zosyn. Acute hypoxic respiratory failure: CXR as above. Extubated 02/01. He is not to be re-intubated. Septic shock due to ischemic bowel: Blood Cx negative. Sputum Cx vinay albicans. Currently on Zosyn (D9) and Anidulafungin (D5). Weaned off Levophed 02/01. ID on board. Shock liver: Trend AST/ALT Cardiomyopathy with EF 35-40%, suspect sepsis induced Hypocalcemia Atrial fibrillation with RVR: Currently in sinus. Heparin drip. Cardiology note reviewed, patient will not need watermaster antiarrhythmics. Anemia, due to acute blood loss s/p 4 units pRBC: Stable. Transfuse if Hg < 7.0. Hematology recommends anticoagulation as long his platelets remained greater than 50,000 and there is no gross bleeding. Coagulopathy: APTT montoring while on Heparin drip. Thrombocytopenia: Continue to monitor while on Heparin. Heparin drip for DVT prophylaxis. NO CODE. I have reviewed the following managing consultant clinical professor notes: I have reviewed the results of the following tests: CBC, Coag panel, BMP, Mag, Phos, CTAP I have ordered the following tests: Agree with CBC, BMP, Phos, Mag. I have discussed the care of this patient with the following independent historian: I have independently interpreted the following test below: I have discussed the management of this patient with the following physician: This patient has a high risk of morbidity due to the following reasons: Patient is currently on heparin drip that requires intensive monitoring for APTT for toxicity. Objective - Vital Signs Vital signs: Vital Signs Temp 98.3 F 02/05/23 08:00 Pulse 70 02/05/23 10:00 Resp 22 02/05/23 10:00 BP 127/69 02/05/23 10:00 Pulse Ox 93 L 02/05/23 10:00 FiO2 30 02/01/23 10:15 Intake & Output 02/04/23 02/05/23 02/05/23 18:59 06:59 18:59 Intake Total 2186.554 1549.998 815.467 Output Total 1295 1265 175 Balance 891.554 284.998 640.467 Weight 90.8 kg 87 kg Intake: IV 855 1080 420 Albumin Human 25% 50 ml 50 In Empty Bag 1 bag @ 50 mls/hr IVPB BID [facility] Rx#: [id number] Mvi, Adult No.4 with Vit 635 840 300 K 10 ml Trace (Conc-1Ml/ Dose) 1 ml Sodium Acetate 30 meq Calcium Gluconate 1.25 gm Potassium Acetate 40 meq Potassium Phosphate 24 mmol In Amino Acid 5%-D15w 1,000 ml @ 45 mls/hr IV . [id number] [facility] Rx#:[id number] Sodium Chloride 0.9% 1, 220 240 70 000 ml @ 20 mls/hr IV . Q24H [facility] Rx#:[id number] Intake, IV Titration 1331.554 469.998 395.467 Amount Amiodarone 360 mg In 385.554 369.998 200 Dextrose 5% in Water 200 ml @ 1 MG/MIN 33.333 mls/ hr IV .Q6H [facility] Rx#: [id number] Heparin Sod,Pork in 0.45% 250 195.467 NaCl 25,000 unit In 0.45 % NaCl 1 250ml.bag @ 12 UNITS/KG/HR 7.68 mls/hr IV .Q24H [facility] Rx#: [id number] Mvi, Adult No.4 with Vit 696 K 10 ml Trace (Conc-1Ml/ Dose) 1 ml Sodium Acetate 30 meq Calcium Gluconate 1.25 gm Potassium Acetate 40 meq Potassium Phosphate 24 mmol In Amino Acid 5%-D15w 1,000 ml @ 45 mls/hr IV . [id number] [facility] Rx#:[id number] Piperacillin-Tazobactam 3 100 .375 gm In Sodium Chloride 0.9% 100 ml @ 25 mls/hr IVPB Q8H [facility] Rx#: [id number] Output: Urine 595 665 175 Stool 700 600 Other: Voiding Method Indwelling Catheter Indwelling Catheter Indwelling Catheter ABP, PAP, CO, CI - Last Documented Arterial Blood Pressure 112/78 - Labs CBC & Chem 7: 02/05/23 07:59 02/05/23 07:59 Labs: Abnormal Lab Results - Last 24 Hours (Table) 02/04/23 02/04/23 02/05/23 Range/Units 04:09 18:43 06:17 WBC 17.9 H (3.8-10.6) k/uL RBC 2.89 L (4.30-5.90) m/uL Hgb 7.4 L D (13.0-17.5) gm/dL Hct 23.6 L (39.0-53.0) % RDW 22.1 H (11.5-15.5) % Plt Count 121 L (150-450) k/uL APTT (22.0-30.0) sec Chloride (98-107) mmol/L BUN (9-20) mg/dL Creatinine (0.66-1.25) mg/dL Glucose (74-99) mg/dL POC Glucose (mg/dL) 114 H (70-110) mg/dL Calcium (8.4-10.2) mg/dL Procalcitonin 1.08 H (0.02-0.09) ng/mL 02/05/23 02/05/23 02/05/23 Range/Units 07:59 07:59 07:59 WBC 16.2 H (3.8-10.6) k/uL RBC 3.03 L (4.30-5.90) m/uL Hgb 7.6 L (13.0-17.5) gm/dL Hct 24.4 L (39.0-53.0) % RDW 22.6 H (11.5-15.5) % Plt Count (150-450) k/uL APTT 40.2 H (22.0-30.0) sec Chloride 111 H (98-107) mmol/L BUN 23 H (9-20) mg/dL Creatinine 0.42 L (0.66-1.25) mg/dL Glucose 113 H (74-99) mg/dL POC Glucose (mg/dL) (70-110) mg/dL Calcium 7.0 L (8.4-10.2) mg/dL Procalcitonin (0.02-0.09) ng/mL Microbiology - Last 24 Hours (Table) 02/02/23 15:54 Blood Culture - Preliminary Blood
--- NOTE | 2023-02-05 11:50 | P.PN ---
Subjective Progress Note Date: 02/05/23 Principal diagnosis: Respiratory failure. Reevaluated today on 01/28/2023, patient remains in the ICU, intubated and mechanically ventilated. His assist-control rate is 16 tidal volume is 500 FiO2 40% PEEP of 5 ABG showed a pO2 of 129 pCO2 32 pH of 7.40 and I cut down his FiO2 to 35%. Patient is off propofol this morning and he is able to follow instructions, seems to comprehend, and seems to be relatively intact. However the patient is still requiring significant amount of drips/pressors he is on vasopressin at 0.04 units. Hour is also on norepinephrine at 19 mcg/m, Rodrigue- Synephrine has been discontinued. His IV fluid is down to 75 mL per hour and his bicarb is down to 25 ML per hour drip. Remains on amiodarone, patient is on 0.5 mg/m, and he is yet to be seen by cardiology today, seems to be in atrial flutter. WBC count today remains elevated at 24.4 hemoglobin is 9.4, lactic acid is 7.3, patient will receive another bolus of saline this morning. Elected lites are normal renal profile is improving bicarb is down to 17 and his creatinine is down to 1.37, liver enzymes remain elevated with AST of 591 and ALT of 449 chest x-ray showed minimal basilar atelectasis, no clear-cut evidence of infiltrates. Patient was reevaluated today on 01/29/2023, remains in the ICU, intubated and mechanically ventilated. Patient continues to have issues with atrial fibri llation and RVR, remains on amiodarone drip, he is receiving beta blockers by cardiology however that seems to be dropping his blood pressure, patient remains on relatively high dose of norepinephrine at 0.16 mcg/kg/m and today I suggested transitioning norepinephrine to Rodrigue-Synephrine since he was doing much better as far as tachycardia while he was on Rodrigue-Synephrine. We'll try to start Rodrigue-Syne phrine and gradually tapered down his norepinephrine hoping that his tachycardia would get better with Rodrigue-Synephrine on board. Remains on propofol at 7 mcg/kg/m remains on Lovenox remains on Zosyn remains on amiodarone at 0.5 mg/m. Patient did receive metoprolol 2.5 mg IV push slowly earlier. Ventilator smith he is on assist control rate of 16 tidal volume 500 FiO2 35% PEEP of 5 up gases showed a BNP O2 of 147 pCO2 42 pH of 7.41. Hence his FiO2 was brought down to 35% from 40% his sodium bicarb corrected nicely hence I'm stopping his sodium bicarb drip his urine output is about 100 mL/h, patient remains on IV fluid about 1 25 mL per hour. Not to mention the patient was started on TPN. Overall the patient remains critically ill, he is not ready for weaning mostly because of his cardiac issues and intermittent episodes of hypotension syndrome requiring significant amount of pressors re elevated today on 01/30, patient remains in the ICU, intubated and mechanically ventilated. He is on assist control rate of 16 tidal volume 500 FiO2 35% and PEEP of 5 ABG showed a pO2 of 102 pCO2 34 pH of 7.45 patient remains on amiodarone at 0.5 mg/m remains on TPN with lipids he is on Rodrigue-Syne phrine 1.2 mcg/kg/m propofol 10 mcg/kg/m IV fluid and 1 25 mL per hour remains on Solu-Cortef 50 mg IV push every 12 hours is also on Zosyn blood pressure is marginal in spite of Rodrigue-Synephrine hence I recommended that the patient gets a bolus of 0.9 normal saline today, and I actually plan to hold his propofol today and give the patient mental status assessment and possibly a weaning trial with pressure support and CPAP. Yesterday the patient was having significant tachycardia however the patient responded well to transitioning norepinephrine to Rodrigue-Synephrine and his tachycardia did resolve. He is now in sinus rhythm and his rate is in the 70s. I believe she count is 20.4 hemoglobin is 7.7 electrolytes are normal renal profile remains normal. A blood sugar is also normal, liver enzymes remains a bit elevated with ALT of 459 and AST of 422 bilirubin is 2.2. Progress note dated 01/31/2023. This is a 67-year-old male who was admitted to the hospital on January 26, with a history of small bowel obstruction, status post small bowel resection, and jejunostomy. The patient went to the operating room on January 26. He remains on mechanical ventilator. He is on volume assist control, rate 16, tidal volume 500, FiO2 35%, and PEEP of 5. Blood gases show a PaO2 of 125, pCO2 35, and pH is 7.42. The FiO2 was turned down from 35-30%. The patient's on saline at 25 mL an hour, amiodarone at 0.5 mg/m, Rodrigue-Synephrine, which is been recently discontinued, and TPN at 60 mL an hour. Propofol is also been weaned off. The patient is a DO NOT RESUSCITATE patient. Nonetheless, the patient will have a daily interruption of sedation, and a spontaneous breathing trial on a pressure support of 5 and CPAP of 5. The patient does continue on Zosyn. White count 17.4, hemoglobin 7.7, hematocrit 25, and platelet count 67,000. Sodium 139, potassium 3.7, chlorides 113, CO2 22, BUN 24, and creatinine 0.51. AST is 381. ALT is 425. Chest x-ray shows trace bilateral effusions. Progress note dated 02/01/2023. This is a 67-year-old male who was admitted to the hospital on January 26, with a history of small bowel obstruction, status post small bowel resection, and jejunostomy. The patient went to the operating room on January 26. He remains on mechanical ventilator. The patient is on the volume assist control, but will be placed on pressure support and CPAP, at 40%, and given a trial, of extubation. The patient continues on antibiotics, antifungals. We made sure with the family, that once the patient is extubated, he is not to be reintubated. The patient's getting TPN at 45 mL an hour, and saline at 1 25 mL an hour. Norepinephrine has been weaned off. The patient remains on heparin via weightbase protocol. In addition, the patient is on amiodarone at 0.5 mg/m. Propofol is off. Once extubated, and the NG tube will be discontinued as well. White count 17.6, hemoglobin 7.9, hematocrit 25.7, and platelet count 80,000. PO2 was 126, pCO2 was 37, and pH of 7.4. Sodium 138, potassium 4, chlorides 114, CO2 21, BUN 25, and creatinine 0.43. Chest x-ray shows a stable portable chest x-ray. Progress note dated 02/02/2023. This is a 67-year-old male who was admitted to the hospital on January 26, with a history of small bowel obstruction, status post small bowel resection, and jejunostomy. The patient went to the operating room on January 26. The patient was successfully extubated yesterday, February 01. The patient is currently on 2 L of oxygen. The patient's getting saline at 125 mL an hour. The patient's getting TPN at 45 mL an hour, and amiodarone at 0.5 mg/m. The patient remains on heparin via weightbase protocol. Zosyn is discontinued. Hydrocortisone is discontinued. White count 24.1, hemoglobin 8.3, hematocrit 26.2, and platelet count 78,000. PTT is 47.9. Sodium 140, potassium 4.1, chlorides 116, CO2 22, BUN 21, and creatinine 0.41. Chest x-ray shows persistent bilateral pleural effusions, and some left lower lobe infiltrate or atelectasis. Progress note dated 02/03/2023. 67-year-old male was admitted to the hospital on January 26, with a history of small bowel obstruction, status post small bowel resection, and jejunostomy. The patient went to the operating room on January 26. The patient was s uccessfully extubated, on February 01. Currently, the patient remains on oxygen, 3 L. He is getting saline at 20 mL an hour, and TPN at 45 mL an hour. He continues on IV heparin via weight aced protocol, and amiodarone 0.5 mg/m. He continues on Zosyn and Eraxis, as per infectious diseases. A PICC line will be placed. The patient will also get 12.5 g of 25% albumin, every 12 hours. Hopefully, this will improve his colloid osmotic pressure. White count 24.3, hemoglobin 9.4, hematocrit 31.1, with a platelet count of 107,000. Sodium 141, potassium 3.9, chlorides 111, CO2 25, BUN 20, and creatinine 0.45. There was no chest x-ray today. Progress note dated 02/04/2023. 67-year-old male was admitted to the hospital on January 26, with a history of small bowel obstruction, status post small bowel resection, and jejunostomy. The patient went to the operating room on January 26. The patient was successfully extubated, on February 01. Currently, the patient is seen today in room 262. The patient's on oxygen 3 L. In addition, the patient's on amiodarone at 1 mg/m, TPN at 35 mL an hour, saline at 20 mL an hour, and heparin via weightbase protocol. A PICC line was placed this morning. We will check another pro-calcitonin level. The patient remains on Zosyn and the Eraxis as per infectious disease PTT was 44.3. Sodium 141, potassium 4.1, chlorides 114, CO2 25, BUN 26, and creatinine 0.47. Albumin is 1.5. Progress note dated 02/05/2023. 67-year-old male was admitted to the hospital on January 26, with a history of small bowel obstruction, status post small bowel resection, and jejunostomy. The patient went to the operating room on January 26. The patient was successfully extubated, on February 01. Currently, the patient is seen today in room 262. I was able to speak to the surgeon about this patient. The patient will need lifelong TPN according to the surgeon. He is not sure, do anything he takes by mouth, will be absorbed. The patient is a DO NOT RESUSCITATE. He is on 5 L nasal cannula. He continues on amiodarone at 1 mg/m, heparin via weightbase protocol, and TPN at 75 mL an hour. He is also getting saline at 20 mL an hour. The surgery was done on January 26. White count 16.2, heme him 7.6, hematocrit 24.4, and normal platelet count. Sodium 138, potassium 4.6, chlorides 111, CO2 22, BUN 23, creatinine 0.42. Objective - Vital Signs Vital signs: Vital Signs Temp 98.3 F 02/05/23 08:00 Pulse 70 02/05/23 10:00 Resp 22 02/05/23 10:00 BP 127/69 02/05/23 10:00 Pulse Ox 93 L 02/05/23 10:00 FiO2 30 02/01/23 10:15 Intake & Output 02/04/23 02/05/23 02/05/23 18:59 06:59 18:59 Intake Total 2186.554 1549.998 815.467 Output Total 1295 1265 175 Balance 891.554 284.998 640.467 Weight 90.8 kg 87 kg Intake: IV 855 1080 420 Albumin Human 25% 50 ml 50 In Empty Bag 1 bag @ 50 mls/hr IVPB BID [facility] Rx#: [id number] Mvi, Adult No.4 with Vit 635 840 300 K 10 ml Trace (Conc-1Ml/ Dose) 1 ml Sodium Acetate 30 meq Calcium Gluconate 1.25 gm Potassium Acetate 40 meq Potassium Phosphate 24 mmol In Amino Acid 5%-D15w 1,000 ml @ 45 mls/hr IV . [id number] [facility] Rx#:[id number] Sodium Chloride 0.9% 1, 220 240 70 000 ml @ 20 mls/hr IV . Q24H [facility] Rx#:[id number] Intake, IV Titration 1331.554 469.998 395.467 Amount Amiodarone 360 mg In 385.554 369.998 200 Dextrose 5% in Water 200 ml @ 1 MG/MIN 33.333 mls/ hr IV .Q6H [facility] Rx#: [id number] Heparin Sod,Pork in 0.45% 250 195.467 NaCl 25,000 unit In 0.45 % NaCl 1 250ml.bag @ 12 UNITS/KG/HR 7.68 mls/hr IV .Q24H [facility] Rx#: [id number] Mvi, Adult No.4 with Vit 696 K 10 ml Trace (Conc-1Ml/ Dose) 1 ml Sodium Acetate 30 meq Calcium Gluconate 1.25 gm Potassium Acetate 40 meq Potassium Phosphate 24 mmol In Amino Acid 5%-D15w 1,000 ml @ 45 mls/hr IV . [id number] [facility] Rx#:[id number] Piperacillin-Tazobactam 3 100 .375 gm In Sodium Chloride 0.9% 100 ml @ 25 mls/hr IVPB Q8H [facility] Rx#: [id number] Output: Urine 595 665 175 Stool 700 600 Other: Voiding Method Indwelling Catheter Indwelling Catheter Indwelling Catheter ABP, PAP, CO, CI - Last Documented Arterial Blood Pressure 112/78 - Exam No acute distress, extubated, awake and alert. Currently on 5 L of oxygen. HEENT examination is grossly unremarkable. Neck supple. Full range of motion. No adenopathy thyromegaly or neck vein distention. Cardiovascular examination reveals an irregular rhythm and rate. S1-S2 normal. No S3 or S4. No discernible murmur noted. Heart sounds are distant. Heart rate is 70 bpm. Lungs reveal scattered bilateral rhonchi. No wheezes or crackles. Breath sounds are equal bilaterally. 5 L saturation is 95 %. Abdomen soft bowel sounds are heard. No masses or tenderness. The patient has significant scrotal edema. Extremities are intact. No cyanosis clubbing or edema. Skin is without rash or lesion. Neurologic examination is brief but nonfocal. - Labs CBC & Chem 7: 02/05/23 07:59 02/05/23 07:59 Labs: Abnormal Lab Results - Last 24 Hours (Table) 02/04/23 02/04/23 02/05/23 Range/Units 04:09 18:43 06:17 WBC 17.9 H (3.8-10.6) k/uL RBC 2.89 L (4.30-5.90) m/uL Hgb 7.4 L D (13.0-17.5) gm/dL Hct 23.6 L (39.0-53.0) % RDW 22.1 H (11.5-15.5) % Plt Count 121 L (150-450) k/uL APTT (22.0-30.0) sec Chloride (98-107) mmol/L BUN (9-20) mg/dL Creatinine (0.66-1.25) mg/dL Glucose (74-99) mg/dL POC Glucose (mg/dL) 114 H (70-110) mg/dL Calcium (8.4-10.2) mg/dL Procalcitonin 1.08 H (0.02-0.09) ng/mL 02/05/23 02/05/23 02/05/23 Range/Units 07:59 07:59 07:59 WBC 16.2 H (3.8-10.6) k/uL RBC 3.03 L (4.30-5.90) m/uL Hgb 7.6 L (13.0-17.5) gm/dL Hct 24.4 L (39.0-53.0) % RDW 22.6 H (11.5-15.5) % Plt Count (150-450) k/uL APTT 40.2 H (22.0-30.0) sec Chloride 111 H (98-107) mmol/L BUN 23 H (9-20) mg/dL Creatinine 0.42 L (0.66-1.25) mg/dL Glucose 113 H (74-99) mg/dL POC Glucose (mg/dL) (70-110) mg/dL Calcium 7.0 L (8.4-10.2) mg/dL Procalcitonin (0.02-0.09) ng/mL Microbiology - Last 24 Hours (Table) 02/02/23 15:54 Blood Culture - Preliminary Blood Assessment and Plan Assessment: Status post exploratory laparotomy with small bowel resection, and jejunostomy, postoperative day #10. Routine postoperative ventilator management, S/P successful extubation 02/01/2023. Status post intubation and mechanical ventilation on 01/26/2023. Abdominal sepsis with septic shock, improved. Acute hypoxemic respiratory failure secondary to abdominal sepsis, and extensive bowel ischemia. Paroxysmal atrial fibrillation. Acute lactic acidosis secondary to sepsis. Benign essential hypertension. Ventral hernia. Acute kidney injury secondary to sepsis, hypertension, and acute tubular necrosis. Plan: Plan dated 01/31/2023. The patient's FiO2 was dropped from 35%, down to 30%. The patient remains on saline, amiodarone, and TPN at 60 mL an hour. Propofol has been discontinued. The patient will get a spontaneous breathing trial on pressure support of 5, and CPAP of 5. The patient is currently on Zosyn. Labs, x-rays, medications are reviewed. The patient is a DO NOT RESUSCITATE patient. We will clarify with the family, that should the patient be extubated, he will not be reintubated. We will continue to follow the patient and make recommendations along the way. Prognosis is certainly poor. Plan dated 02/01/2023. The patient will be extubated, today, and not be reintubated, should he develop respiratory failure. We confirmed that with the family. The patient's has been weaned off of norepinephrine, but continues on TPN, and heparin. The patient also continues on amiodarone. The patient continues on Zosyn and Eraxis. Labs, x-rays, and medications are reviewed. The patient is a DO NOT RESUSCITATE patient. Additional recommendations and suggestions are forthcoming. Prognosis is guarded. Plan dated 02/02/2023. The patient was successfully extubated, February 01. He's currently on between 2-3 L. Saturations are adequate. The patient is a bit lethargic and sleepy. He remains on saline, which is reduced down to 20 mL an hour. The patient's getting TPN at 45 mL an hour, amiodarone 0.5 mg/m, and heparin via weightbase protocol. Zosyn and hydrocortisone a discontinued. The patient has significant scrotal edema. We will continue to follow make recommendations and suggestions along the way. Prognosis is guarded. Plan dated 02/03/2023. The patient was successfully extubated on February 01. He is on oxygen at 3 L. Unfortunately, the patient remains on amiodarone 0.5 mg/m. In addition, the patient's on TPN, and IV heparin. The patient has significant diffuse edema and anasarca, or edema. We added 12.5 g of 25% albumin, twice a day. A PICC line will be placed. The patient continues on Zosyn and he Eraxis. Labs, x-rays, and medications are reviewed. The patient's overall prognosis remains guarded. Plan dated 02/04/2023. The patient was successfully extubated on February 01. He remains on oxygen at 3 L. In addition, he continues on TPN at 45 mL an hour, and amiodarone at 1 mg/m, along with IV heparin. The patient is getting albumin, twice today, 12.5 g, to see if we can transiently increase colloid osmotic pressure, and reduce some of his edema. Labs, x-rays, and medications are reviewed. The patient remains on Zosyn and Eraxis. Prognosis is certainly guarded. We will continue to follow the patient and make recommendations. He is a DO NOT RESUSCITATE patient. Plan dated 02/05/2023. We will attempt to place an NG tube. Hopefully, the patient will be able to absorb some nutrients and medications, family NG tube. This will hopefully allow us to get him off the IV heparin, and IV amiodarone. The patient remains on TPN at 75 mL an hour. The patient is getting oxygen at 5 L by nasal cannula. The patient is a DO NOT RESUSCITATE patient. The patient had surgery on January 26, at which time he had exploratory laparotomy, extensive small bowel resection, and jejunostomy. The surgeon believes the patient will never ever be able to come off the TPN. In addition, he is not sure how much the patient will be able to absorb, with the remaining small bowel. Prognosis is very poor. We will continue to follow make recommendations along the way. Time with Patient: Greater than 30
[2023-02-05 12:23] LABS: Glucose,Whole Blood 174 mg/dL (70-110)
--- NOTE | 2023-02-05 12:35 | P.PN ---
Subjective Progress Note Date: 02/05/23 The patient is a 67-year-old male who is demented to the hospital with abdominal discomfort. 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 The patient developed postoperative atrial fibrillation and therefore cardiology was consulted. He was started on amiodaro ne drip and subsequently converted to sinus mechanism. Postoperative complications include acute hypoxic respiratory failure and septic shock. The patient has been exudative elevated and is doing well from a respiratory status, however he has no parental axis. Due to the large portion of his small bowel being removed, it is unlikely that the patient will be able to absorb nutrition and oral medications and he will remain on TPN. Patient was interviewed and examined resting comfortably in bed. He reports having abdominal pain. GENERAL: Ill-appearing, well-nourished and in no acute distress. NECK: Supple without JVD or thyromegaly. LUNGS: Breath sounds coarse to auscultation bilaterally. Respiration equal and unlabored. HEART: Regular rate and rhythm without murmurs, rubs or gallops. S1 and S2 heard. EXTREMITIES: Normal range of motion, mild edema. No clubbing or cyanosis. Peripheral pulses intact and strong. TELEMETRY: Atrial fibrillation with RVR and sinus rhythm in the 80s IMPRESSION: Atrial fibrillation with RVR, currently in sinus rhythm Acute ischemic bowel, status post resection Thrombocytopenia Anemia, blood loss secondary to surgery PLAN: Reduce IV amiodarone to 0.5 mg for additional 24 hours Patient will need to remain on IV amiodarone for rate control as there are no sublingual or transdermal preparations of antiarrhythmics Consider oral beta blockers Further recommendations will be based on clinical course I am dictating on behalf of Dr Jerson Serrano's history/physical and assessment/plan. Objective - Vital Signs Vital signs: Vital Signs Temp 98.0 F 02/05/23 12:00 Pulse 68 02/05/23 12:00 Resp 21 02/05/23 12:00 BP 123/72 02/05/23 12:00 Pulse Ox 93 L 02/05/23 12:00 FiO2 30 02/01/23 10:15 Intake & Output 02/04/23 02/05/23 02/05/23 18:59 06:59 18:59 Intake Total 2186.554 1228.682 1417.467 Output Total 1295 1265 300 Balance 891.554 284.998 705.467 Weight 90.8 kg 87 kg Intake: IV 855 1080 610 Albumin Human 25% 50 ml 50 In Empty Bag 1 bag @ 50 mls/hr IVPB BID [facility] Rx#: [id number] Mvi, Adult No.4 with Vit 635 840 450 K 10 ml Trace (Conc-1Ml/ Dose) 1 ml Sodium Acetate 30 meq Calcium Gluconate 1.25 gm Potassium Acetate 40 meq Potassium Phosphate 24 mmol In Amino Acid 5%-D15w 1,000 ml @ 45 mls/hr IV . [id number] [facility] Rx#:[id number] Sodium Chloride 0.9% 1, 220 240 110 000 ml @ 20 mls/hr IV . Q24H [facility] Rx#:[id number] Intake, IV Titration 1331.554 469.998 395.467 Amount Amiodarone 360 mg In 385.554 369.998 200 Dextrose 5% in Water 200 ml @ 1 MG/MIN 33.333 mls/ hr IV .Q6H [facility] Rx#: [id number] Heparin Sod,Pork in 0.45% 250 195.467 NaCl 25,000 unit In 0.45 % NaCl 1 250ml.bag @ 12 UNITS/KG/HR 7.68 mls/hr IV .Q24H [facility] Rx#: [id number] Mvi, Adult No.4 with Vit 696 K 10 ml Trace (Conc-1Ml/ Dose) 1 ml Sodium Acetate 30 meq Calcium Gluconate 1.25 gm Potassium Acetate 40 meq Potassium Phosphate 24 mmol In Amino Acid 5%-D15w 1,000 ml @ 45 mls/hr IV . [id number] [facility] Rx#:[id number] Piperacillin-Tazobactam 3 100 .375 gm In Sodium Chloride 0.9% 100 ml @ 25 mls/hr IVPB Q8H [facility] Rx#: [id number] Output: Urine 595 665 300 Stool 700 600 Other: Voiding Method Indwelling Catheter Indwelling Catheter Indwelling Catheter ABP, PAP, CO, CI - Last Documented Arterial Blood Pressure 112/78 - Labs CBC & Chem 7: 02/05/23 07:59 02/05/23 07:59 Labs: Abnormal Lab Results - Last 24 Hours (Table) 0902/04/23 02/05/23 Range/Units 04:09 18:43 06:17 WBC 17.9 H (3.8-10.6) k/uL RBC 2.89 L (4.30-5.90) m/uL Hgb 7.4 L D (13.0-17.5) gm/dL Hct 23.6 L (39.0-53.0) % RDW 22.1 H (11.5-15.5) % Plt Count 121 L (150-450) k/uL APTT (22.0-30.0) sec Chloride (98-107) mmol/L BUN (9-20) mg/dL Creatinine (0.66-1.25) mg/dL Glucose (74-99) mg/dL POC Glucose (mg/dL) 114 H (70-110) mg/dL Calcium (8.4-10.2) mg/dL Procalcitonin 1.08 H (0.02-0.09) ng/mL 02/05/23 02/05/23 02/05/23 Range/Units 07:59 07:59 07:59 WBC 16.2 H (3.8-10.6) k/uL RBC 3.03 L (4.30-5.90) m/uL Hgb 7.6 L (13.0-17.5) gm/dL Hct 24.4 L (39.0-53.0) % RDW 22.6 H (11.5-15.5) % Plt Count (150-450) k/uL APTT 40.2 H (22.0-30.0) sec Chloride 111 H (98-107) mmol/L BUN 23 H (9-20) mg/dL Creatinine 0.42 L (0.66-1.25) mg/dL Glucose 113 H (74-99) mg/dL POC Glucose (mg/dL) (70-110) mg/dL Calcium 7.0 L (8.4-10.2) mg/dL Procalcitonin (0.02-0.09) ng/mL 02/05/23 Range/Units 12:22 WBC (3.8-10.6) k/uL RBC (4.30-5.90) m/uL Hgb (13.0-17.5) gm/dL Hct (39.0-53.0) % RDW (11.5-15.5) % Plt Count (150-450) k/uL APTT (22.0-30.0) sec Chloride (98-107) mmol/L BUN (9-20) mg/dL Creatinine (0.66-1.25) mg/dL Glucose (74-99) mg/dL POC Glucose (mg/dL) 174 H (70-110) mg/dL Calcium (8.4-10.2) mg/dL Procalcitonin (0.02-0.09) ng/mL Microbiology - Last 24 Hours (Table) 02/02/23 15:54 Blood Culture - Preliminary Blood
[2023-02-05] MEDS: HEPARIN SOD,PORK IN 0.45% NACL 25,000 UNIT in 0.45% NACL 1 250ML.BAG IV SCH (12:37)
--- NOTE | 2023-02-05 12:42 | P.PN ---
Subjective Progress Note Date: 02/05/23 Principal diagnosis: Sepsis/ischemic small intestine Patient is a 67-year-old male with a past medical history negative for atrial fibrillation diabetes mellitus hypertension PE seizure disorder and dementia patient was brought into the hospital for evaluation of a syncopal episode , patient did have a CT abdominal pelvis suggestive of small bowel ischemia status post laparotomy patient was noticed to have ischemic small bowel intestine intra-abdominal adhesion requiring small bowel resection and jejunostomy and admission to the ICU. On today's evaluation of that is 02/05/2023, the patient remains to be afebrile, the patient is hemodynamically stable , the patient is breathing comfortably on 5 L nasal cannula oxygen patient is more awake but in no distress no vomiting or any other changes reported by the nursing staff Patient white count is down to 16.2, creatinine 0.42, repeat blood culture 02/02/2023 so far negative catheter tip cultures pending Objective - Vital Signs Vital signs: Vital Signs Temp 98.3 F 02/05/23 08:00 Pulse 70 02/05/23 10:00 Resp 22 02/05/23 10:00 BP 127/69 02/05/23 10:00 Pulse Ox 93 L 02/05/23 10:00 FiO2 30 02/01/23 10:15 Intake & Output 02/04/23 02/05/23 02/05/23 18:59 06:59 18:59 Intake Total 2186.554 1549.998 815.467 Output Total 1295 1265 175 Balance 891.554 284.998 640.467 Weight 90.8 kg 87 kg Intake: IV 855 1080 420 Albumin Human 25% 50 ml 50 In Empty Bag 1 bag @ 50 mls/hr IVPB BID [facility] Rx#: [id number] Mvi, Adult No.4 with Vit 635 840 300 K 10 ml Trace (Conc-1Ml/ Dose) 1 ml Sodium Acetate 30 meq Calcium Gluconate 1.25 gm Potassium Acetate 40 meq Potassium Phosphate 24 mmol In Amino Acid 5%-D15w 1,000 ml @ 45 mls/hr IV . [id number] [facility] Rx#:[id number] Sodium Chloride 0.9% 1, 220 240 70 000 ml @ 20 mls/hr IV . Q24H [facility] Rx#:[id number] Intake, IV Titration 1331.554 469.998 395.467 Amount Amiodarone 360 mg In 385.554 369.998 200 Dextrose 5% in Water 200 ml @ 1 MG/MIN 33.333 mls/ hr IV .Q6H [facility] Rx#: [id number] Heparin Sod,Pork in 0.45% 250 195.467 NaCl 25,000 unit In 0.45 % NaCl 1 250ml.bag @ 12 UNITS/KG/HR 7.68 mls/hr IV .Q24H [facility] Rx#: [id number] Mvi, Adult No.4 with Vit 696 K 10 ml Trace (Conc-1Ml/ Dose) 1 ml Sodium Acetate 30 meq Calcium Gluconate 1.25 gm Potassium Acetate 40 meq Potassium Phosphate 24 mmol In Amino Acid 5%-D15w 1,000 ml @ 45 mls/hr IV . [id number] [facility] Rx#:[id number] Piperacillin-Tazobactam 3 100 .375 gm In Sodium Chloride 0.9% 100 ml @ 25 mls/hr IVPB Q8H [facility] Rx#: [id number] Output: Urine 595 665 175 Stool 700 600 Other: Voiding Method Indwelling Catheter Indwelling Catheter Indwelling Catheter ABP, PAP, CO, CI - Last Documented Arterial Blood Pressure 112/78 - Exam GENERAL DESCRIPTION: An elderly male lying in bed in no distress RESPIRATORY SYSTEM: Unlabored breathing , decreased breath sounds at bases HEART: S1 S2 regular rate and rhythm , ABDOMEN: Soft , midline incision is intact EXTREMITIES: No edema feet - Labs CBC & Chem 7: 02/05/23 07:59 02/05/23 07:59 Labs: Abnormal Lab Results - Last 24 Hours (Table) 02/04/23 02/04/23 02/05/23 Range/Units 04:09 18:43 06:17 WBC 17.9 H (3.8-10.6) k/uL RBC 2.89 L (4.30-5.90) m/uL Hgb 7.4 L D (13.0-17.5) gm/dL Hct 23.6 L (39.0-53.0) % RDW 22.1 H (11.5-15.5) % Plt Count 121 L (150-450) k/uL APTT (22.0-30.0) sec Chloride (98-107) mmol/L BUN (9-20) mg/dL Creatinine (0.66-1.25) mg/dL Glucose (74-99) mg/dL POC Glucose (mg/dL) 114 H (70-110) mg/dL Calcium (8.4-10.2) mg/dL Procalcitonin 1.08 H (0.02-0.09) ng/mL 02/05/23 02/05/23 02/05/23 Range/Units 07:59 07:59 07:59 WBC 16.2 H (3.8-10.6) k/uL RBC 3.03 L (4.30-5.90) m/uL Hgb 7.6 L (13.0-17.5) gm/dL Hct 24.4 L (39.0-53.0) % RDW 22.6 H (11.5-15.5) % Plt Count (150-450) k/uL APTT 40.2 H (22.0-30.0) sec Chloride 111 H (98-107) mmol/L BUN 23 H (9-20) mg/dL Creatinine 0.42 L (0.66-1.25) mg/dL Glucose 113 H (74-99) mg/dL POC Glucose (mg/dL) (70-110) mg/dL Calcium 7.0 L (8.4-10.2) mg/dL Procalcitonin (0.02-0.09) ng/mL Microbiology - Last 24 Hours (Table) 02/02/23 15:54 Blood Culture - Preliminary Blood Assessment and Plan (1) Ischemic bowel disease Current Visit: Yes Status: Acute Priority: High Code(s): K55.9 - VASCULAR DISORDER OF INTESTINE, UNSPECIFIED SNOMED Code(s): 39777883 (2) Sepsis Current Visit: Yes Status: Acute Priority: High Code(s): A41.9 - SEPSIS, UNSPECIFIED ORGANISM SNOMED Code(s): 09883204 Plan: 1patient present to hospital with sepsis/septic shock in this patient with hypotension fever elevated white count tachycardia source is abdominal pain in this patient noticed to have small bowel ischemia s/p laparotomy with small bowel resection and jejunostomy, we will need to cover for the enteric gram- negative the likely pathogen for this episode of sepsis/septic shock. 2patient afebrile , however the patient did have persistently elevated white count patient did have CT of abdominal pelvis, postoperative changes large amount of ascites and hyperdense bowel wall transverse colon with a question of intramural hemorrhage, CT has been reviewed by surgery continue with the current treatment 3-patient white count is trending down, we will continue with Zosyn and Eraxis and monitor clinical course closely Dictation was produced using AV[employer] dictation software. please excuse any gramm atical, word or spelling errors. Time with Patient: Less than 30
[2023-02-05 13:35] LABS: Polychromasia Present
[2023-02-05] MEDS: SODIUM CHLORIDE 0.9% 1,000 ML IV SCH (14:27)
[2023-02-05] MEDS: AMIODARONE 450 MG in DEXTROSE 5% IN WATER 250 ML IV SCH ×2 (15:04)
[2023-02-05] MEDS: 1: MVI, ADULT NO.4 WITH VIT K 10 ML, TRACE (CONC-1ML/DOSE) 1 ML, SODIUM ACETATE 30 MEQ, IV SCH ×7 (15:54)
[2023-02-05] MEDS: HEPARIN SODIUM 1,000 UN/ML (10ML VL) IV PRN (17:07)
[2023-02-05] MEDS: ANIDULAFUNGIN 100 MG in SODIUM CHLORIDE 0.9% 100 ML IVPB SCH (17:10)
[2023-02-06 00:31] LABS: Glucose,Whole Blood 104 mg/dL (70-110)
[2023-02-06] MEDS: HEPARIN SODIUM 1,000 UN/ML (10ML VL) IV PRN ×2 (00:34→06:24)
[2023-02-06] MEDS: HYDROmorphone 1 MG/ML 1 ML SYRINGE IVP PRN ×3 (02:42→11:15)
[2023-02-06] MEDS: AMIODARONE 450 MG in DEXTROSE 5% IN WATER 250 ML IV SCH ×2 (02:43)
[2023-02-06 05:18] LABS: Magnesium 1.8 mg/dL (1.6-2.3); Phosphorus 3.7 mg/dL (2.5-4.5)
[2023-02-06 05:20] LABS: ALT 53 U/L (4-49); AST 51 U/L (17-59); African American GFR (CKD) >90 (>60 ml/min/1.73 sqM); Albumin 1.7 g/dL (3.5-5.0); Alkaline Phosphatase 52 U/L (38-126); Anion Gap 6 mmol/L; Blood Urea Nitrogen 24 mg/dL (9-20); Carbon Dioxide 23 mmol/L (22-30); Chloride 110 mmol/L (98-107); Glucose 116 mg/dL (74-99); Non-African American GFR(CKD) >90 (>60 ml/min/1.73 sqM); Potassium 4.4 mmol/L (3.5-5.1); Sodium 139 mmol/L (137-145); Total Bilirubin 11.1 mg/dL (0.2-1.3); Total Protein 4.2 g/dL (6.3-8.2)
[2023-02-06 06:55] LABS: Glucose,Whole Blood 113 mg/dL (70-110)
[2023-02-06] MEDS ORDERED: 1: MVI, ADULT NO.4 WITH VIT K 10 ML, TRACE (CONC-1ML/DOSE) 1 ML, SODIUM ACETATE 30 MEQ, IV SCH ×8 (07:00)
[2023-02-06] MEDS: ARTIFICIAL TEARS-HYPROMELLOSE DROPS 15 ML BTL RIGHT EYE SCH (07:21)
[2023-02-06] MEDS: INSULIN ASPART (NovoLOG) 100 UNIT/ML VIAL SQ SCH ×3 (07:21→13:27)
[2023-02-06] MEDS: PIPERACILLIN-TAZOBACTAM 3.375 GM in SODIUM CHLORIDE 0.9% 100 ML IVPB SCH ×2 (07:22→16:59)
[2023-02-06] MEDS: ALBUMIN HUMAN 25% 50 ML in EMPTY BAG 1 BAG IVPB SCH (08:49)
[2023-02-06] MEDS: SODIUM CHLORIDE 0.9% 1,000 ML IV SCH (08:49)
[2023-02-06] MEDS: PANTOPRAZOLE 40 MG/10 ML VIAL IVP SCH (08:49)
--- NOTE | 2023-02-06 08:51 | XR ---
EXAMINATION TYPE: XR chest 1V portable DATE OF EXAM: 02/06/2023 COMPARISON: 02/04/2023 HISTORY: Worsening shortness of breath TECHNIQUE: Single frontal view of the chest is obtained. FINDINGS: There are large opacity obscuring the bilateral lung bases, interstitial infiltrates in the upper quiana gs bilaterally. There has been mild interval worsening compared to the prior study. There is no definite pneumothorax. The osseous structures are intact IMPRESSION: Interval worsening in the bilateral lung infiltrates and pleural effusions.
[2023-02-06] MEDS: HYDROPHILIC CREAM 180 GM TUBE TOPICAL SCH (08:54)
[2023-02-06] MEDS ORDERED: CISATRACURIUM 2 MG/ML 5 ML VIAL IV ONE (10:06)
--- NOTE | 2023-02-06 10:08 | P.PN ---
Subjective Progress Note Date: 02/06/23 Principal diagnosis: Ischemic bowel Patient has had increased respiratory distress. FiO2 requirements have increased. Remains somewhat short of breath. Complaining of abdominal discomforts and body aches. Adequate urine output. Tachycardic once again. T- max 100.3. CBC is pending however bilirubin elevated at 11.1. Alkaline phosphatase ALT and AST normal. Objective - Vital Signs Vital signs: Vital Signs Temp 100.3 F H 02/06/23 08:00 Pulse 112 H 02/06/23 08:00 Resp 37 H 02/06/23 08:00 BP 113/72 02/06/23 07:00 Pulse Ox 96 02/06/23 08:00 FiO2 90 02/06/23 08:03 Intake & Output 02/05/23 02/06/23 02/06/23 18:59 06:59 18:59 Intake Total 7453.522 8521.123 85 Output Total 1015 1165 75 Balance 895.972 341.123 10 Weight 92.4 kg Intake: IV 1210 1040 85 Albumin Human 25% 50 ml 50 50 In Empty Bag 1 bag @ 50 mls/hr IVPB BID [facility] Rx#: [id number] Anidulafungin 100 mg In 100 Sodium Chloride 0.9% 100 ml @ 84 mls/hr IVPB Q24H [facility] Rx#:[id number] Mvi, Adult No.4 with Vit 675 K 10 ml Trace (Conc-1Ml/ Dose) 1 ml Sodium Acetate 30 meq Calcium Gluconate 1.25 gm Potassium Acetate 40 meq Potassium Phosphate 24 mmol In Amino Acid 5%-D15w 1,000 ml @ 45 mls/hr IV . [id number] [facility] Rx#:[id number] Sodium Acetate 30 meq 225 900 75 Calcium Gluconate 1.25 gm Potassium Acetate 40 meq Potassium Phosphate 24 mmol In Amino Acid 5%- D15w 1,000 ml @ 75 mls/hr IV .BY DURATION [facility] Rx#: [id number] Sodium Chloride 0.9% 1, 160 90 10 000 ml @ 20 mls/hr IV . Q24H [facility] Rx#:[id number] Intake, IV Titration 700.972 466.123 Amount Amiodarone 360 mg In 381.665 Dextrose 5% in Water 200 ml @ 0.5 MG/MIN 16.667 mls/hr IV .Q12H [facility] Rx#: [id number] Amiodarone 450 mg In 194.171 Dextrose 5% in Water 250 ml @ 0.5 MG/MIN 16.667 mls/hr IV .Q15H [facility] Rx#: [id number] Heparin Sod,Pork in 0.45% 319.307 171.952 NaCl 25,000 unit In 0.45 % NaCl 1 250ml.bag @ 12 UNITS/KG/HR 7.68 mls/hr IV .Q24H [facility] Rx#: [id number] Piperacillin-Tazobactam 3 100 .375 gm In Sodium Chloride 0.9% 100 ml @ 25 mls/hr IVPB Q8H [facility] Rx#: [id number] Output: Urine 565 665 75 Stool 450 500 Other: Voiding Method Indwelling Catheter Indwelling Catheter Indwelling Catheter ABP, PAP, CO, CI - Last Documented Arterial Blood Pressure 112/78 - Exam Abdomen: Soft, nondistended, incision clean and dry, ostomy pink, mild diffuse tenderness - Labs CBC & Chem 7: 02/05/23 07:59 02/06/23 04:44 Labs: Abnormal Lab Results - Last 24 Hours (Table) 02/05/23 02/05/23 02/05/23 Range/Units 07:59 12:22 16:01 Neutrophils # 14.8 H (1.3-7.7) k/uL Lymphocytes # 0.6 L (1.0-4.8) k/uL APTT 37.5 H (22.0-30.0) sec Chloride (98-107) mmol/L BUN (9-20) mg/dL Creatinine (0.66-1.25) mg/dL Glucose (74-99) mg/dL POC Glucose (mg/dL) 174 H (70-110) mg/dL Calcium (8.4-10.2) mg/dL Total Bilirubin (0.2-1.3) mg/dL ALT (4-49) U/L Total Protein (6.3-8.2) g/dL Albumin (3.5-5.0) g/dL 02/05/23 02/06/23 02/06/23 Range/Units 23:10 04:44 04:44 Neutrophils # (1.3-7.7) k/uL Lymphocytes # (1.0-4.8) k/uL APTT 30.6 H 40.1 H (22.0-30.0) sec Chloride 110 H (98-107) mmol/L BUN 24 H (9-20) mg/dL Creatinine 0.44 L (0.66-1.25) mg/dL Glucose 116 H (74-99) mg/dL POC Glucose (mg/dL) (70-110) mg/dL Calcium 7.0 L (8.4-10.2) mg/dL Total Bilirubin 11.1 H (0.2-1.3) mg/dL ALT 53 H (4-49) U/L Total Protein 4.2 L (6.3-8.2) g/dL Albumin 1.7 L (3.5-5.0) g/dL 02/06/23 Range/Units 06:54 Neutrophils # (1.3-7.7) k/uL Lymphocytes # (1.0-4.8) k/uL APTT (22.0-30.0) sec Chloride (98-107) mmol/L BUN (9-20) mg/dL Creatinine (0.66-1.25) mg/dL Glucose (74-99) mg/dL POC Glucose (mg/dL) 113 H (70-110) mg/dL Calcium (8.4-10.2) mg/dL Total Bilirubin (0.2-1.3) mg/dL ALT (4-49) U/L Total Protein (6.3-8.2) g/dL Albumin (3.5-5.0) g/dL Microbiology - Last 24 Hours (Table) 02/02/23 15:54 Blood Culture - Preliminary Blood 02/04/23 12:45 Catheter Tip Culture - Preliminary Catheter Tip Assessment and Plan (1) Ischemic bowel disease Narrative/Plan: Patient has had clinical deterioration since yesterday. Now febrile. Await morning labs. Remains on IV amiodarone. Continue antibiotics. Await rounds by critical care team. Family apparently discussing with nursing staff possible change to hospice measures. Given the patient's long-term stated struggles with his short bowel that is certainly not unreasonable Current Visit: Yes Status: Acute Priority: High Code(s): K55.9 - VASCULAR DISORDER OF INTESTINE, UNSPECIFIED SNOMED Code(s): 36448982
[2023-02-06] MEDS ORDERED: LORazepam 2 MG/ML INJ IV PRN (10:28)
[2023-02-06] MEDS: KETOROLAC 15 MG/ML 1 ML VIAL IVP PRN (10:33)
[2023-02-06 12:00] LABS: Glucose,Whole Blood 118 mg/dL (70-110)
[2023-02-06 12:42] LABS: Anisocytosis Moderate; Basophils % (A) 0 %; Eosinophils # (A) 0.1 k/uL (0-0.7); Eosinophils % (A) 1 %; HCT 24.5 % (39.0-53.0); HGB 7.6 gm/dL (13.0-17.5); Hypochromasia Marked; Lymphocytes # (A) 0.6 k/uL (1.0-4.8); Lymphocytes % (A) 5 %; MCH 25.3 pg (25.0-35.0); MCV 81.5 fL (80.0-100.0); Mean Platelet Volume 10.9; Microcytosis Slight; Monocytes # (A) 0.4 k/uL (0-1.0); Monocytes % (A) 4 %; Neutrophils # (A) 11.1 k/uL (1.3-7.7); Neutrophils % (A) 90 %; Platelet Count 218 k/uL (150-450); Poikilocytosis Slight; RBC 3.01 m/uL (4.30-5.90); RDW 22.6 % (11.5-15.5); WBC 12.4 k/uL (3.8-10.6)
[2023-02-06] MEDS ORDERED: FUROSEMIDE 10 MG/ML 4 ML VIAL IV STA (12:43)
--- NOTE | 2023-02-06 12:47 | P.PN ---
Subjective Progress Note Date: 02/06/23 Patient is a 67 -year-old male with history of high blood pressure, atrial fibrillation, diabetes mellitus type 2, obstructive uropathy, and long-standing ventral hernia who presented to the ER from his longterm due to syncopal episode. In the ER he underwent extensive evaluation. On arrival was vital signs were remarkable for blood pressure 67/33 and a pulse of 60. Laboratory analysis was reviewed including a CBC, coagulation studies, CMP, liver function, lactic acid, and troponin which were remarkable for white blood cell count 15, hemoglobin 8.7, hematocrit 29.9, INR 1.6, carbon dioxide 14, anion gap 19, lactic acid 9.6. Influenza A/B/RSV/COVID-[address] abdomen and pelvis completed which showed small bowel ischemia versus obstruction, ascites, cholelithiasis. In the ER he was given 2 L normal saline. He remained hypotensive and was started on norepinephrine and Zosyn. Arrangements were made for admission to the ICU. He was seen by surgery, he was administered a dose of K Centra and underwent urgent exploratory laparotomy with small bowel resection and jejunostomy. The majority of the small bowel was resected with approximately 1 foot of jejunum that was viable, and duodenum was also viable. 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 Postoperatively he required 4 untis of pRBC. The night after surgery the patient's vasopressor requirements increased and he was subsequently started on phenylephrine and vasopressin. His cortisol was 16 which is not adequate for his state of shock and he was started on cortef. On 01/28 he went into A. fib with RVR necessitating an amiodarone drip. He vaso and phe nylephrine were able to be weaned off by the morning of 01/29. He struggled with sinus tachycardia on 01/29 and vasopressors were adjusted. 02/01 Patient was seen and examined. Extubated this morning. CBC shows WBC count of 17.6, Hg 7.9, Plt 80. Coag panel APTT 34.5. ABG pH 7.4, pCO2 37. BMP Cl 114, bicab 21, BUN 25, Cr 0.43, glucose 141, Ca 6.6. Phos 2.5. Mag 2.3. Amiodarone 0.5 mg/min. Antibiotics include Anidulafungin and Zosyn. Currently on TPN. Heparin drip at 21 units/kg/hr. Solucortef at 50 mg IV BID. Levophed discontinued at this time. NS at 125 cc/hr. CXR shows bibasilar opacities. 02/02 Patient was seen and examined. Patient reports uncontrolled pain in his abdomen. Dilaudid increased from 0.5 to 1mg and Toradol added. CBC shows WBC count of 24.1, Hg 8.3, Plt 78. Coag panel APTT 47.9. BMP Cl 112, BUN 21, Cr 0.42, glucose 128, Ca 6.7. Phos 2.6. Mag 2.1. Ionized Ca 4.4. Recieving Ca gluconate 1g IV today. Amiodarone discontinued. Antibiotics include Anidulafungin and Zosyn. Currently on TPN. Heparin drip at 25 units/kg/hr. Solucortef at 50 mg IV BID. Levophed weaned off yesterday. NS at 20 cc/hr. CXR shows persistent bibasilar opacities. 02/03 Patient was seen and examined. He remains tachycardic with HR in the 130s. Amiodarone drip increased to 1. Attempt made to try Cardizem and Metoprolol but discontinued due to low BP. Plans for albumin 25% x 2 today. CBC shows WBC count of 24.3, Hg 9.4, Plt 107. Coag panel APTT 46.4. BMP Cl 111, Cr 0.45, Ca 7. Phos 2.8. Mag 2. 02/04 Patient was seen and examined. HR and BP much improved since yesterday. Continues to be on Amiodarone 1 and Heparin drip. APTT 44.3. BMP shows Cl 114, BUN 26, Cr 0.47, glucose 119, Ca 6.9, T.Bili 8.5, AST 73, ALT 89. Mag 2. Phos 2.9. PICC line placed today. 02/05 Patient was seen and examined. Rate controlled and BP within normal limits. CBC shows WBC count 16.2 and Hg 7.6. APTT 40.2. BMP Cl 111, BUN 23, Cr 0.42, glucose 113, Ca 7. Phos 3.5. Mg 2. CT AP was done due to drop in Hg which showed hyperdense bowel wall cannot exclude intramural hemorrhage and large amount of anasarca, pleural effusion and atelectasis. Surgery note reviewed, plans for repeat swallow evaluation early next week. 02/06 Patient was seen and examined. Respirator status worsened today. Currently on 60L Airvo 91% FiO2. Family in discussion about hospice. CXR shows worsening of bilateral infiltrates and pleural effusion. Lasix 40 mg IV x 1 ordered. CBC shows WBC count 12.4 and Hg 7.6. APTT 42.3. CMP shows Cl 110, BUN 24, Cr 0.44, glucose 116, Ca 7, T. Bili 11.1, ALT 53, Albumin 1.7. Mag 1.8. Phos 3.7. 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 Patient has an acute diagnosis of septic shock secondary to ischemic colitis s/p small bowel resection with jejunostomy complicated with ischemic cardiomyopathy and acute blood loss anemia requiring 4 unit PRBC that poses a threat to life or bodily function. Ischemic colitis: s/p small bowel resection with jejunostomy 01/26. 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 Protonix 40 mg IV BID. Continue Zosyn. Acute hypoxic respiratory failure: CXR as above. Extubated 02/01. Lasix 40 mg IV ordered x 1. He is not to be re-intubated. Family in discussion for hospice. Septic shock due to ischemic bowel: Blood Cx negative. Sputum Cx vinay albicans. Currently on Zosyn (D10) and Anidulafungin (D6). Weaned off Levophed 02/01. ID on board. Shock liver: Trend AST/ALT Cardiomyopathy with EF 35-40%, suspect sepsis induced Hypocalcemia Atrial fibrillation with RVR: Currently in sinus. Heparin drip. 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 Anemia, due to acute blood loss s/p 4 units pRBC: Stable. Transfuse if Hg < 7.0. Hematology recommends anticoagulation as long his platelets remained greater than 50,000 and there is no gross bleeding. Coagulopathy: APTT montoring while on Heparin drip. Thrombocytopenia: Continue to monitor while on Heparin. Heparin drip for DVT prophylaxis. NO CODE. I have reviewed the following media consultant outside sales notes: I have reviewed the results of the following tests: CBC, Coag panel, BMP, Mag, Phos, CTAP I have ordered the following tests: Agree with CBC, BMP, Phos, Mag. I have discussed the care of this patient with the following independent historian: I have independently interpreted the following test below: CXR as above. I have discussed the management of this patient with the following physician: This patient has a high risk of morbidity due to the following reasons: Patient is currently on heparin drip that requires intensive monitoring for APTT for toxicity. Objective - Vital Signs Vital signs: Vital Signs Temp 100.7 F H 02/06/23 12:00 Pulse 131 H 02/06/23 12:00 Resp 40 H 02/06/23 12:00 BP 76/48 02/06/23 12:00 Pulse Ox 91 L 02/06/23 12:00 FiO2 90 02/06/23 12:00 Intake & Output 02/05/23 02/06/23 02/06/23 18:59 06:59 18:59 Intake Total 9670.797 2642.123 625 Output Total 1015 1165 285 Balance 895.972 341.123 340 Weight 92.4 kg Intake: IV 1210 1040 625 Albumin Human 25% 50 ml 50 50 50 In Empty Bag 1 bag @ 50 mls/hr IVPB BID [facility] Rx#: [id number] Anidulafungin 100 mg In 100 Sodium Chloride 0.9% 100 ml @ 84 mls/hr IVPB Q24H [facility] Rx#:[id number] Mvi, Adult No.4 with Vit 675 K 10 ml Trace (Conc-1Ml/ Dose) 1 ml Sodium Acetate 30 meq Calcium Gluconate 1.25 gm Potassium Acetate 40 meq Potassium Phosphate 24 mmol In Amino Acid 5%-D15w 1,000 ml @ 45 mls/hr IV . [id number] [facility] Rx#:[id number] Sodium Acetate 30 meq 225 900 75 Calcium Gluconate 1.25 gm Potassium Acetate 40 meq Potassium Phosphate 24 mmol In Amino Acid 5%- D15w 1,000 ml @ 75 mls/hr IV .BY DURATION [facility] Rx#: [id number] Sodium Acetate 30 meq 450 Calcium Gluconate 1.25 gm Potassium Acetate 40 meq Potassium Phosphate 24 mmol Magnesium Sulfate gm 0.5 gm In Amino Acid 5%- D15w 1,000 ml @ 90 mls/hr IV .BY DURATION [facility] Rx#: [id number] Sodium Chloride 0.9% 1, 160 90 50 000 ml @ 20 mls/hr IV . Q24H [facility] Rx#:[id number] Intake, IV Titration 700.972 466.123 Amount Amiodarone 360 mg In 381.665 Dextrose 5% in Water 200 ml @ 0.5 MG/MIN 16.667 mls/hr IV .Q12H [facility] Rx#: [id number] Amiodarone 450 mg In 194.171 Dextrose 5% in Water 250 ml @ 0.5 MG/MIN 16.667 mls/hr IV .Q15H [facility] Rx#: [id number] Heparin Sod,Pork in 0.45% 319.307 171.952 NaCl 25,000 unit In 0.45 % NaCl 1 250ml.bag @ 12 UNITS/KG/HR 7.68 mls/hr IV .Q24H [facility] Rx#: [id number] Piperacillin-Tazobactam 3 100 .375 gm In Sodium Chloride 0.9% 100 ml @ 25 mls/hr IVPB Q8H [facility] Rx#: [id number] Output: Urine 565 665 285 Stool 450 500 Other: Voiding Method Indwelling Catheter Indwelling Catheter Indwelling Catheter ABP, PAP, CO, CI - Last Documented Arterial Blood Pressure 112/78 - Labs CBC & Chem 7: 02/06/23 11:55 10/01/23 04:44 Labs: Abnormal Lab Results - Last 24 Hours (Table) 02/05/23 02/05/23 02/05/23 Range/Units 07:59 16:01 23:10 WBC (3.8-10.6) k/uL RBC (4.30-5.90) m/uL Hgb (13.0-17.5) gm/dL Hct (39.0-53.0) % RDW (11.5-15.5) % Neutrophils # 14.8 H (1.3-7.7) k/uL Lymphocytes # 0.6 L (1.0-4.8) k/uL APTT 37.5 H 30.6 H (22.0-30.0) sec Chloride (98-107) mmol/L BUN (9-20) mg/dL Creatinine (0.66-1.25) mg/dL Glucose (74-99) mg/dL POC Glucose (mg/dL) (70-110) mg/dL Calcium (8.4-10.2) mg/dL Total Bilirubin (0.2-1.3) mg/dL ALT (4-49) U/L Total Protein (6.3-8.2) g/dL Albumin (3.5-5.0) g/dL 02/06/23 02/06/23 02/06/23 Range/Units 04:44 04:44 06:54 WBC (3.8-10.6) k/uL RBC (4.30-5.90) m/uL Hgb (13.0-17.5) gm/dL Hct (39.0-53.0) % RDW (11.5-15.5) % Neutrophils # (1.3-7.7) k/uL Lymphocytes # (1.0-4.8) k/uL APTT 40.1 H (22.0-30.0) sec Chloride 110 H (98-107) mmol/L BUN 24 H (9-20) mg/dL Creatinine 0.44 L (0.66-1.25) mg/dL Glucose 116 H (74-99) mg/dL POC Glucose (mg/dL) 113 H (70-110) mg/dL Calcium 7.0 L (8.4-10.2) mg/dL Total Bilirubin 11.1 H (0.2-1.3) mg/dL ALT 53 H (4-49) U/L Total Protein 4.2 L (6.3-8.2) g/dL Albumin 1.7 L (3.5-5.0) g/dL 02/06/23 02/06/23 02/06/23 Range/Units 11:55 11:55 11:58 WBC 12.4 H (3.8-10.6) k/uL RBC 3.01 L (4.30-5.90) m/uL Hgb 7.6 L (13.0-17.5) gm/dL Hct 24.5 L (39.0-53.0) % RDW 22.6 H (11.5-15.5) % Neutrophils # 11.1 H (1.3-7.7) k/uL Lymphocytes # 0.6 L (1.0-4.8) k/uL APTT 42.3 H (22.0-30.0) sec Chloride (98-107) mmol/L BUN (9-20) mg/dL Creatinine (0.66-1.25) mg/dL Glucose (74-99) mg/dL POC Glucose (mg/dL) 118 H (70-110) mg/dL Calcium (8.4-10.2) mg/dL Total Bilirubin (0.2-1.3) mg/dL ALT (4-49) U/L Total Protein (6.3-8.2) g/dL Albumin (3.5-5.0) g/dL Microbiology - Last 24 Hours (Table) 02/02/23 15:54 Blood Culture - Preliminary Blood 02/04/23 12:45 Catheter Tip Culture - Preliminary Catheter Tip
--- NOTE | 2023-02-06 12:47 | P.PN ---
Subjective Progress Note Date: 02/06/23 Principal diagnosis: Respiratory failure. Reevaluated today on 01/28/2023, patient remains in the ICU, intubated and mechanically ventilated. His assist-control rate is 16 tidal volume is 500 FiO2 40% PEEP of 5 ABG showed a pO2 of 129 pCO2 32 pH of 7.40 and I cut down his FiO2 to 35%. Patient is off propofol this morning and he is able to follow instructions, seems to comprehend, and seems to be relatively intact. However the patient is still requiring significant amount of drips/pressors he is on vasopressin at 0.04 units. Hour is also on norepinephrine at 19 mcg/m, Rodrigue- Synephrine has been discontinued. His IV fluid is down to 75 mL per hour and his bicarb is down to 25 ML per hour drip. Remains on amiodarone, patient is on 0.5 mg/m, and he is yet to be seen by cardiology today, seems to be in atrial flutter. WBC count today remains elevated at 24.4 hemoglobin is 9.4, lactic acid is 7.3, patient will receive another bolus of saline this morning. Elected lites are normal renal profile is improving bicarb is down to 17 and his creatinine is down to 1.37, liver enzymes remain elevated with AST of 591 and ALT of 449 chest x-ray showed minimal basilar atelectasis, no clear-cut evidence of infiltrates. Patient was reevaluated today on 01/29/2023, remains in the ICU, intubated and mechanically ventilated. Patient continues to have issues with atrial fibri llation and RVR, remains on amiodarone drip, he is receiving beta blockers by cardiology however that seems to be dropping his blood pressure, patient remains on relatively high dose of norepinephrine at 0.16 mcg/kg/m and today I suggested transitioning norepinephrine to Rodrigue-Synephrine since he was doing much better as far as tachycardia while he was on Rodrigue-Synephrine. We'll try to start Rodrigue-Syne phrine and gradually tapered down his norepinephrine hoping that his tachycardia would get better with Rodrigue-Synephrine on board. Remains on propofol at 7 mcg/kg/m remains on Lovenox remains on Zosyn remains on amiodarone at 0.5 mg/m. Patient did receive metoprolol 2.5 mg IV push slowly earlier. Ventilator smith he is on assist control rate of 16 tidal volume 500 FiO2 35% PEEP of 5 up gases showed a BNP O2 of 147 pCO2 42 pH of 7.41. Hence his FiO2 was brought down to 35% from 40% his sodium bicarb corrected nicely hence I'm stopping his sodium bicarb drip his urine output is about 100 mL/h, patient remains on IV fluid about 1 25 mL per hour. Not to mention the patient was started on TPN. Overall the patient remains critically ill, he is not ready for weaning mostly because of his cardiac issues and intermittent episodes of hypotension syndrome requiring significant amount of pressors re elevated today on 01/30, patient remains in the ICU, intubated and mechanically ventilated. He is on assist control rate of 16 tidal volume 500 FiO2 35% and PEEP of 5 ABG showed a pO2 of 102 pCO2 34 pH of 7.45 patient remains on amiodarone at 0.5 mg/m remains on TPN with lipids he is on Rodrigue-Syne phrine 1.2 mcg/kg/m propofol 10 mcg/kg/m IV fluid and 1 25 mL per hour remains on Solu-Cortef 50 mg IV push every 12 hours is also on Zosyn blood pressure is marginal in spite of Rodrigue-Synephrine hence I recommended that the patient gets a bolus of 0.9 normal saline today, and I actually plan to hold his propofol today and give the patient mental status assessment and possibly a weaning trial with pressure support and CPAP. Yesterday the patient was having significant tachycardia however the patient responded well to transitioning norepinephrine to Rodrigue-Synephrine and his tachycardia did resolve. He is now in sinus rhythm and his rate is in the 70s. I believe she count is 20.4 hemoglobin is 7.7 electrolytes are normal renal profile remains normal. A blood sugar is also normal, liver enzymes remains a bit elevated with ALT of 459 and AST of 422 bilirubin is 2.2. Progress note dated 01/31/2023. This is a 67-year-old male who was admitted to the hospital on January 26, with a history of small bowel obstruction, status post small bowel resection, and jejunostomy. The patient went to the operating room on January 26. He remains on mechanical ventilator. He is on volume assist control, rate 16, tidal volume 500, FiO2 35%, and PEEP of 5. Blood gases show a PaO2 of 125, pCO2 35, and pH is 7.42. The FiO2 was turned down from 35-30%. The patient's on saline at 25 mL an hour, amiodarone at 0.5 mg/m, Rodrigue-Synephrine, which is been recently discontinued, and TPN at 60 mL an hour. Propofol is also been weaned off. The patient is a DO NOT RESUSCITATE patient. Nonetheless, the patient will have a daily interruption of sedation, and a spontaneous breathing trial on a pressure support of 5 and CPAP of 5. The patient does continue on Zosyn. White count 17.4, hemoglobin 7.7, hematocrit 25, and platelet count 67,000. Sodium 139, potassium 3.7, chlorides 113, CO2 22, BUN 24, and creatinine 0.51. AST is 381. ALT is 425. Chest x-ray shows trace bilateral effusions. Progress note dated 02/01/2023. This is a 67-year-old male who was admitted to the hospital on January 26, with a history of small bowel obstruction, status post small bowel resection, and jejunostomy. The patient went to the operating room on January 26. He remains on mechanical ventilator. The patient is on the volume assist control, but will be placed on pressure support and CPAP, at 40%, and given a trial, of extubation. The patient continues on antibiotics, antifungals. We made sure with the family, that once the patient is extubated, he is not to be reintubated. The patient's getting TPN at 45 mL an hour, and saline at 1 25 mL an hour. Norepinephrine has been weaned off. The patient remains on heparin via weightbase protocol. In addition, the patient is on amiodarone at 0.5 mg/m. Propofol is off. Once extubated, and the NG tube will be discontinued as well. White count 17.6, hemoglobin 7.9, hematocrit 25.7, and platelet count 80,000. PO2 was 126, pCO2 was 37, and pH of 7.4. Sodium 138, potassium 4, chlorides 114, CO2 21, BUN 25, and creatinine 0.43. Chest x-ray shows a stable portable chest x-ray. Progress note dated 02/02/2023. This is a 67-year-old male who was admitted to the hospital on January 26, with a history of small bowel obstruction, status post small bowel resection, and jejunostomy. The patient went to the operating room on January 26. The patient was successfully extubated yesterday, February 01. The patient is currently on 2 L of oxygen. The patient's getting saline at 125 mL an hour. The patient's getting TPN at 45 mL an hour, and amiodarone at 0.5 mg/m. The patient remains on heparin via weightbase protocol. Zosyn is discontinued. Hydrocortisone is discontinued. White count 24.1, hemoglobin 8.3, hematocrit 26.2, and platelet count 78,000. PTT is 47.9. Sodium 140, potassium 4.1, chlorides 116, CO2 22, BUN 21, and creatinine 0.41. Chest x-ray shows persistent bilateral pleural effusions, and some left lower lobe infiltrate or atelectasis. Progress note dated 02/03/2023. 67-year-old male was admitted to the hospital on January 26, with a history of small bowel obstruction, status post small bowel resection, and jejunostomy. The patient went to the operating room on January 26. The patient was s uccessfully extubated, on February 01. Currently, the patient remains on oxygen, 3 L. He is getting saline at 20 mL an hour, and TPN at 45 mL an hour. He continues on IV heparin via weight aced protocol, and amiodarone 0.5 mg/m. He continues on Zosyn and Eraxis, as per infectious diseases. A PICC line will be placed. The patient will also get 12.5 g of 25% albumin, every 12 hours. Hopefully, this will improve his colloid osmotic pressure. White count 24.3, hemoglobin 9.4, hematocrit 31.1, with a platelet count of 107,000. Sodium 141, potassium 3.9, chlorides 111, CO2 25, BUN 20, and creatinine 0.45. There was no chest x-ray today. Progress note dated 02/04/2023. 67-year-old male was admitted to the hospital on January 26, with a history of small bowel obstruction, status post small bowel resection, and jejunostomy. The patient went to the operating room on January 26. The patient was successfully extubated, on February 01. Currently, the patient is seen today in room 262. The patient's on oxygen 3 L. In addition, the patient's on amiodarone at 1 mg/m, TPN at 35 mL an hour, saline at 20 mL an hour, and heparin via weightbase protocol. A PICC line was placed this morning. We will check another pro-calcitonin level. The patient remains on Zosyn and the Eraxis as per infectious disease PTT was 44.3. Sodium 141, potassium 4.1, chlorides 114, CO2 25, BUN 26, and creatinine 0.47. Albumin is 1.5. Progress note dated 02/05/2023. 67-year-old male was admitted to the hospital on January 26, with a history of small bowel obstruction, status post small bowel resection, and jejunostomy. The patient went to the operating room on January 26. The patient was successfully extubated, on February 01. Currently, the patient is seen today in room 262. I was able to speak to the surgeon about this patient. The patient will need lifelong TPN according to the surgeon. He is not sure, do anything he takes by mouth, will be absorbed. The patient is a DO NOT RESUSCITATE. He is on 5 L nasal cannula. He continues on amiodarone at 1 mg/m, heparin via weightbase protocol, and TPN at 75 mL an hour. He is also getting saline at 20 mL an hour. The surgery was done on January 26. White count 16.2, heme him 7.6, hematocrit 24.4, and normal platelet count. Sodium 138, potassium 4.6, chlorides 111, CO2 22, BUN 23, creatinine 0.42. Progress note dated 02/06/2023. 67-year-old male admitted to the hospital on January 26, with history of small bowel obstruction, status post exploratory laparotomy, small bowel resection, and jejunostomy. The patient was extubated, on February 01. Today he seen again in room 262. Currently, the patient is getting AIRVO at 60 L/m, with an FiO2 80%. The patient's getting amiodarone at 0.5 mg/m, and heparin via weightbase protocol. In addition, the patient's getting TPN at 90 mL an hour, and saline at 10 mL an hour. We have spoken to the family about care, and/or hospice consultation. White count is 12.4, hemoglobin 7.6, hematocrit 24.5, and platelet count 218,000. Sodium 139, potassium 4.4, chlorides 110, CO2 23, BUN 24, and creatinine 0.44. Albumin is 1.7. Total bilirubin is 11.1. The patient is quite jaundiced. Chest x-ray showed diffuse bilateral worsening infiltrates. Objective - Vital Signs Vital signs: Vital Signs Temp 100.7 F H 02/06/23 12:00 Pulse 131 H 02/06/23 12:00 Resp 40 H 02/06/23 12:00 BP 76/48 02/06/23 12:00 Pulse Ox 91 L 02/06/23 12:00 FiO2 90 02/06/23 12:00 Intake & Output 02/05/23 02/06/23 02/06/23 18:59 06:59 18:59 Intake Total 2365.158 2798.123 625 Output Total 1015 1165 285 Balance 895.972 341.123 340 Weight 92.4 kg Intake: IV 1210 1040 625 Albumin Human 25% 50 ml 50 50 50 In Empty Bag 1 bag @ 50 mls/hr IVPB BID [facility] Rx#: [id number] Anidulafungin 100 mg In 100 Sodium Chloride 0.9% 100 ml @ 84 mls/hr IVPB Q24H [facility] Rx#:[id number] Mvi, Adult No.4 with Vit 675 K 10 ml Trace (Conc-1Ml/ Dose) 1 ml Sodium Acetate 30 meq Calcium Gluconate 1.25 gm Potassium Acetate 40 meq Potassium Phosphate 24 mmol In Amino Acid 5%-D15w 1,000 ml @ 45 mls/hr IV . [id number] [facility] Rx#:[id number] Sodium Acetate 30 meq 225 900 75 Calcium Gluconate 1.25 gm Potassium Acetate 40 meq Potassium Phosphate 24 mmol In Amino Acid 5%- D15w 1,000 ml @ 75 mls/hr IV .BY DURATION [facility] Rx#: [id number] Sodium Acetate 30 meq 450 Calcium Gluconate 1.25 gm Potassium Acetate 40 meq Potassium Phosphate 24 mmol Magnesium Sulfate gm 0.5 gm In Amino Acid 5%- D15w 1,000 ml @ 90 mls/hr IV .BY DURATION [facility] Rx#: [id number] Sodium Chloride 0.9% 1, 160 90 50 000 ml @ 20 mls/hr IV . Q24H [facility] Rx#:[id number] Intake, IV Titration 700.972 466.123 Amount Amiodarone 360 mg In 381.665 Dextrose 5% in Water 200 ml @ 0.5 MG/MIN 16.667 mls/hr IV .Q12H [facility] Rx#: [id number] Amiodarone 450 mg In 194.171 Dextrose 5% in Water 250 ml @ 0.5 MG/MIN 16.667 mls/hr IV .Q15H [facility] Rx#: [id number] Heparin Sod,Pork in 0.45% 319.307 171.952 NaCl 25,000 unit In 0.45 % NaCl 1 250ml.bag @ 12 UNITS/KG/HR 7.68 mls/hr IV .Q24H [facility] Rx#: [id number] Piperacillin-Tazobactam 3 100 .375 gm In Sodium Chloride 0.9% 100 ml @ 25 mls/hr IVPB Q8H [facility] Rx#: [id number] Output: Urine 565 665 285 Stool 450 500 Other: Voiding Method Indwelling Catheter Indwelling Catheter Indwelling Catheter ABP, PAP, CO, CI - Last Documented Arterial Blood Pressure 112/78 - Exam No acute distress, extubated, awake and alert. Currently on AIRVO, at 60 L/m with an FiO2 of 90%. The patient is very jaundiced. HEENT examination is grossly unremarkable. Neck supple. Full range of motion. No adenopathy thyromegaly or neck vein distention. Cardiovascular examination reveals an irregular rhythm and rate. S1-S2 normal. No S3 or S4. No discernible murmur noted. Heart sounds are distant. Heart rate is 131 bpm. Lungs reveal scattered bilateral rhonchi. No wheezes or crackles. Breath sounds are equal bilaterally. AIRVO saturations are only 91% Abdomen soft bowel sounds are heard. No masses or tenderness. The patient has significant scrotal edema. Extremities are intact. No cyanosis or clubbing. The patient does have diffuse anasarca. Skin reveals significant jaundice. Neurologic examination is brief but nonfocal. - Labs CBC & Chem 7: 02/05/23 07:59 02/06/23 04:44 Labs: Abnormal Lab Results - Last 24 Hours (Table) 02/05/23 02/05/23 02/05/23 Range/Units 07:59 16:01 23:10 Neutrophils # 14.8 H (1.3-7.7) k/uL Lymphocytes # 0.6 L (1.0-4.8) k/uL APTT 37.5 H 30.6 H (22.0-30.0) sec Chloride (98-107) mmol/L BUN (9-20) mg/dL Creatinine (0.66-1.25) mg/dL Glucose (74-99) mg/dL POC Glucose (mg/dL) (70-110) mg/dL Calcium (8.4-10.2) mg/dL Total Bilirubin (0.2-1.3) mg/dL ALT (4-49) U/L Total Protein (6.3-8.2) g/dL Albumin (3.5-5.0) g/dL 02/06/23 02/06/23 02/06/23 Range/Units 04:44 04:44 06:54 Neutrophils # (1.3-7.7) k/uL Lymphocytes # (1.0-4.8) k/uL APTT 40.1 H (22.0-30.0) sec Chloride 110 H (98-107) mmol/L BUN 24 H (9-20) mg/dL Creatinine 0.44 L (0.66-1.25) mg/dL Glucose 116 H (74-99) mg/dL POC Glucose (mg/dL) 113 H (70-110) mg/dL Calcium 7.0 L (8.4-10.2) mg/dL Total Bilirubin 11.1 H (0.2-1.3) mg/dL ALT 53 H (4-49) U/L Total Protein 4.2 L (6.3-8.2) g/dL Albumin 1.7 L (3.5-5.0) g/dL 02/06/23 02/06/23 Range/Units 11:55 11:58 Neutrophils # (1.3-7.7) k/uL Lymphocytes # (1.0-4.8) k/uL APTT 42.3 H (22.0-30.0) sec Chloride (98-107) mmol/L BUN (9-20) mg/dL Creatinine (0.66-1.25) mg/dL Glucose (74-99) mg/dL POC Glucose (mg/dL) 118 H (70-110) mg/dL Calcium (8.4-10.2) mg/dL Total Bilirubin (0.2-1.3) mg/dL ALT (4-49) U/L Total Protein (6.3-8.2) g/dL Albumin (3.5-5.0) g/dL Microbiology - Last 24 Hours (Table) 02/02/23 15:54 Blood Culture - Preliminary Blood 02/04/23 12:45 Catheter Tip Culture - Preliminary Catheter Tip Assessment and Plan Assessment: Status post exploratory laparotomy with small bowel resection, and jejunostomy, postoperative day #11. Routine postoperative ventilator management, S/P successful extubation 02/01/2023. Status post intubation and mechanical ventilation on 01/26/2023. Abdominal sepsis with septic shock, improved. Acute hypoxemic respiratory failure secondary to abdominal sepsis, and extensive bowel ischemia. Severe jaundice and hyperbilirubinemia. Paroxysmal atrial fibrillation. Acute lactic acidosis secondary to sepsis. Benign essential hypertension. Ventral hernia. Acute kidney injury secondary to sepsis, hypertension, and acute tubular necrosis. Plan: Plan dated 01/31/2023. The patient's FiO2 was dropped from 35%, down to 30%. The patient remains on saline, amiodarone, and TPN at 60 mL an hour. Propofol has been discontinued. The patient will get a spontaneous breathing trial on pressure support of 5, and CPAP of 5. The patient is currently on Zosyn. Labs, x-rays, medications are reviewed. The patient is a DO NOT RESUSCITATE patient. We will clarify with the family, that should the patient be extubated, he will not be reintubated. We will continue to follow the patient and make recommendations along the way. Prognosis is certainly poor. Plan dated 02/01/2023. The patient will be extubated, today, and not be reintubated, should he develop respiratory failure. We confirmed that with the family. The patient's has been weaned off of norepinephrine, but continues on TPN, and heparin. The patient also continues on amiodarone. The patient continues on Zosyn and Eraxis. Labs, x-rays, and medications are reviewed. The patient is a DO NOT RESUSCITATE patient. Additional recommendations and suggestions are forthcoming. Prognosis is guarded. Plan dated 02/02/2023. The patient was successfully extubated, February 01. He's currently on between 2-3 L. Saturations are adequate. The patient is a bit lethargic and sleepy. He remains on saline, which is reduced down to 20 mL an hour. The patient's getting TPN at 45 mL an hour, amiodarone 0.5 mg/m, and heparin via weightbase protocol. Zosyn and hydrocortisone a discontinued. The patient has significant scrotal edema. We will continue to follow make recommendations and suggestions along the way. Prognosis is guarded. Plan dated 02/03/2023. The patient was successfully extubated on February 01. He is on oxygen at 3 L. Unfortunately, the patient remains on amiodarone 0.5 mg/m. In addition, the patient's on TPN, and IV heparin. The patient has significant diffuse edema and anasarca, or edema. We added 12.5 g of 25% albumin, twice a day. A PICC line will be placed. The patient continues on Zosyn and he Eraxis. Labs, x-rays, and medications are reviewed. The patient's overall prognosis remains guarded. Plan dated 02/04/2023. The patient was successfully extubated on February 01. He remains on oxygen at 3 L. In addition, he continues on TPN at 45 mL an hour, and amiodarone at 1 mg/m, along with IV heparin. The patient is getting albumin, twice today, 12.5 g, to see if we can transiently increase colloid osmotic pressure, and reduce some of his edema. Labs, x-rays, and medications are reviewed. The patient remains on Zosyn and Eraxis. Prognosis is certainly guarded. We will continue to follow the patient and make recommendations. He is a DO NOT RESUSCITATE patient. Plan dated 02/05/2023. We will attempt to place an NG tube. Hopefully, the patient will be able to absorb some nutrients and medications, family NG tube. This will hopefully allow us to get him off the IV heparin, and IV amiodarone. The patient remains on TPN at 75 mL an hour. The patient is getting oxygen at 5 L by nasal cannula. The patient is a DO NOT RESUSCITATE patient. The patient had surgery on January 26, at which time he had exploratory laparotomy, extensive small bowel resection, and jejunostomy. The surgeon believes the patient will never ever be able to come off the TPN. In addition, he is not sure how much the patient will be able to absorb, with the remaining small bowel. Prognosis is very poor. We will continue to follow make recommendations along the way. Plan dated 02/06/2023. The patient is currently on AIRVO, at 60 L/m with an FiO2 of 90%. Despite that, saturations are in the low 90s. The patient remains on a number of different drips including amiodarone, heparin, and TPN. The nurses have talked to the family about the possibility of hospice or palliative care consultation. The patient is a DO NOT RESUSCITATE patient. According to the surgeon, the patient will be on TPN for his entire lifetime. Labs, x-rays, and medications are reviewed. Prognosis is poor. Time with Patient: Greater than 30
[2023-02-06] MEDS ORDERED: MORPHINE SULFATE 2 MG/ML SYRINGE IVP STA (13:21)
[2023-02-06 15:04] VITALS: RESP 33
[2023-02-06] MEDS ORDERED: AMIODARONE 450 MG in DEXTROSE 5% IN WATER 250 ML IV SCH ×2 (15:15)
[2023-02-06] MEDS: HEPARIN SOD,PORK IN 0.45% NACL 25,000 UNIT in 0.45% NACL 1 250ML.BAG IV SCH (15:44)
--- NOTE | 2023-02-06 16:07 | P.PN ---
Subjective Progress Note Date: 02/06/23 The patient is a 67-year-old male who is demented to the hospital with abdominal discomfort. 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 The patient developed postoperative atrial fibrillation and therefore cardiology was consulted. He was started on amiodaro ne drip and subsequently converted to sinus mechanism. Postoperative complications include acute hypoxic respiratory failure and septic shock. The patient has been exudative elevated and is doing well from a respiratory status, however he has no parental axis. Due to the large portion of his small bowel being removed, it is unlikely that the patient will be able to absorb nutrition and oral medications and he will remain on TPN. Patient was interviewed and examined resting comfortably in bed. He reports having abdominal pain and difficulty breathing. GENERAL: Ill-appearing, mal-nourished. Patient is agitated and anxious. NECK: Supple without JVD or thyromegaly. LUNGS: Breath sounds coarse to auscultation bilaterally. Respiration equal and labored. HEART: Regular rate and rhythm without murmurs, rubs or gallops. S1 and S2 heard. EXTREMITIES: Normal range of motion, mild edema. No clubbing or cyanosis. Peripheral pulses intact and strong. TELEMETRY: Atrial fibrillation with RVR and sinus rhythm in the 80s IMPRESSION: Atrial fibrillation with RVR, currently in sinus rhythm Acute ischemic bowel, status post resection Thrombocytopenia Anemia, blood loss secondary to surgery PLAN: Continue IV medications Hospice consultation according to nursing staff No further recommendations from the cardiac standpoint I am dictating on behalf of Dr Jerson Serrano's history/physical and assessment/plan. Objective - Vital Signs Vital signs: Vital Signs Temp 100.7 F H 02/06/23 12:00 Pulse 118 H 02/06/23 15:00 Resp 33 H 02/06/23 15:00 BP 102/86 02/06/23 15:00 Pulse Ox 87 L 02/06/23 15:00 FiO2 90 02/06/23 15:34 Intake & Output 02/05/23 02/06/23 02/06/23 18:59 06:59 18:59 Intake Total 6021.899 6136.123 925 Output Total 1015 1165 495 Balance 895.972 341.123 430 Weight 92.4 kg Intake: IV 1210 1040 925 Albumin Human 25% 50 ml 50 50 50 In Empty Bag 1 bag @ 50 mls/hr IVPB BID [facility] Rx#: [id number] Anidulafungin 100 mg In 100 Sodium Chloride 0.9% 100 ml @ 84 mls/hr IVPB Q24H [facility] Rx#:[id number] Mvi, Adult No.4 with Vit 675 K 10 ml Trace (Conc-1Ml/ Dose) 1 ml Sodium Acetate 30 meq Calcium Gluconate 1.25 gm Potassium Acetate 40 meq Potassium Phosphate 24 mmol In Amino Acid 5%-D15w 1,000 ml @ 45 mls/hr IV . [id number] [facility] Rx#:[id number] Sodium Acetate 30 meq 225 900 75 Calcium Gluconate 1.25 gm Potassium Acetate 40 meq Potassium Phosphate 24 mmol In Amino Acid 5%- D15w 1,000 ml @ 75 mls/hr IV .BY DURATION [facility] Rx#: [id number] Sodium Acetate 30 meq 720 Calcium Gluconate 1.25 gm Potassium Acetate 40 meq Potassium Phosphate 24 mmol Magnesium Sulfate gm 0.5 gm In Amino Acid 5%- D15w 1,000 ml @ 90 mls/hr IV .BY DURATION [facility] Rx#: [id number] Sodium Chloride 0.9% 1, 160 90 80 000 ml @ 20 mls/hr IV . Q24H [facility] Rx#:[id number] Intake, IV Titration 700.972 466.123 Amount Amiodarone 360 mg In 381.665 Dextrose 5% in Water 200 ml @ 0.5 MG/MIN 16.667 mls/hr IV .Q12H [facility] Rx#: [id number] Amiodarone 450 mg In 194.171 Dextrose 5% in Water 250 ml @ 0.5 MG/MIN 16.667 mls/hr IV .Q15H [facility] Rx#: [id number] Heparin Sod,Pork in 0.45% 319.307 171.952 NaCl 25,000 unit In 0.45 % NaCl 1 250ml.bag @ 12 UNITS/KG/HR 7.68 mls/hr IV .Q24H [facility] Rx#: [id number] Piperacillin-Tazobactam 3 100 .375 gm In Sodium Chloride 0.9% 100 ml @ 25 mls/hr IVPB Q8H [facility] Rx#: [id number] Output: Urine 565 665 495 Stool 450 500 Other: Voiding Method Indwelling Catheter Indwelling Catheter Indwelling Catheter ABP, PAP, CO, CI - Last Documented Arterial Blood Pressure 112/78 - Labs CBC & Chem 7: 02/06/23 11:55 02/06/23 04:44 Labs: Abnormal Lab Results - Last 24 Hours (Table) 02/05/23 02/05/23 02/06/23 Range/Units 16:01 23:10 04:44 WBC (3.8-10.6) k/uL RBC (4.30-5.90) m/uL Hgb (13.0-17.5) gm/dL Hct (39.0-53.0) % RDW (11.5-15.5) % Neutrophils # (1.3-7.7) k/uL Lymphocytes # (1.0-4.8) k/uL APTT 37.5 H 30.6 H (22.0-30.0) sec Chloride 110 H (98-107) mmol/L BUN 24 H (9-20) mg/dL Creatinine 0.44 L (0.66-1.25) mg/dL Glucose 116 H (74-99) mg/dL POC Glucose (mg/dL) (70-110) mg/dL Calcium 7.0 L (8.4-10.2) mg/dL Total Bilirubin 11.1 H (0.2-1.3) mg/dL ALT 53 H (4-49) U/L Total Protein 4.2 L (6.3-8.2) g/dL Albumin 1.7 L (3.5-5.0) g/dL 02/06/23 02/06/23 02/06/23 Range/Units 04:44 06:54 11:55 WBC (3.8-10.6) k/uL RBC (4.30-5.90) m/uL Hgb (13.0-17.5) gm/dL Hct (39.0-53.0) % RDW (11.5-15.5) % Neutrophils # (1.3-7.7) k/uL Lymphocytes # (1.0-4.8) k/uL APTT 40.1 H 42.3 H (22.0-30.0) sec Chloride (98-107) mmol/L BUN (9-20) mg/dL Creatinine (0.66-1.25) mg/dL Glucose (74-99) mg/dL POC Glucose (mg/dL) 113 H (70-110) mg/dL Calcium (8.4-10.2) mg/dL Total Bilirubin (0.2-1.3) mg/dL ALT (4-49) U/L Total Protein (6.3-8.2) g/dL Albumin (3.5-5.0) g/dL 02/06/23 02/06/23 Range/Units 11:55 11:58 WBC 12.4 H (3.8-10.6) k/uL RBC 3.01 L (4.30-5.90) m/uL Hgb 7.6 L (13.0-17.5) gm/dL Hct 24.5 L (39.0-53.0) % RDW 22.6 H (11.5-15.5) % Neutrophils # 11.1 H (1.3-7.7) k/uL Lymphocytes # 0.6 L (1.0-4.8) k/uL APTT (22.0-30.0) sec Chloride (98-107) mmol/L BUN (9-20) mg/dL Creatinine (0.66-1.25) mg/dL Glucose (74-99) mg/dL POC Glucose (mg/dL) 118 H (70-110) mg/dL Calcium (8.4-10.2) mg/dL Total Bilirubin (0.2-1.3) mg/dL ALT (4-49) U/L Total Protein (6.3-8.2) g/dL Albumin (3.5-5.0) g/dL Microbiology - Last 24 Hours (Table) 02/02/23 15:54 Blood Culture - Preliminary Blood 02/04/23 12:45 Catheter Tip Culture - Preliminary Catheter Tip
[2023-02-06 16:21] VITALS: BP 75/55; PULSE 123; TEMP 100.3
[2023-02-06] MEDS ORDERED: ONDANSETRON 4 MG/2 ML VIAL IVP PRN (16:23)
[2023-02-06] MEDS ORDERED: MORPHINE SULFATE 2 MG/ML SYRINGE IV PRN (16:23)
[2023-02-06] MEDS ORDERED: ACETAMINOPHEN SUPPOSITORY 650 MG SUPP RECTAL PRN (16:23)
[2023-02-06] MEDS ORDERED: SODIUM CHLORIDE 0.9% 1,000 ML IV SCH (16:27)
[2023-02-06] MEDS ORDERED: SCOPOLAMINE 1 MG/72 HR PATCH TRANSDERM SCH (16:30)
[2023-02-06] MEDS ORDERED: MORPHINE SULFATE (100 MG/2 ML) 100 MG in SODIUM CHLORIDE 0.9% 100 ML IV SCH (16:30)
--- NOTE | 2023-02-07 08:38 | P.DS ---
Providers Date of admission: 01/26/23 08:37 Expected date of discharge: 02/06/23 Attending physician: Rona Rodriguez DO Consults: 01/26/23 08:37 Consult Physician Urgent Consulting Provider: Cecilio Garcia Consult Reason/Comments: SBO Do you want consulting provider notified?: Already Contacted Consult Physician Urgent Consulting Provider: Delfin Humphrey Consult Reason/Comments: SBO./Sepsis Do you want consulting provider notified?: Already Contacted 01/26/23 19:12 Consult Physician Routine Consulting Provider: Sonu Chawla Consult Reason/Comments: Septic shock Do you want consulting provider notified?: Yes 01/27/23 11:10 Consult Physician Urgent Consulting Provider: Sonu Chawla Consult Reason/Comments: septic shock, s/p bowel resection/necrotic bowel Do you want consulting provider notified?: Yes 01/27/23 12:04 Consult Physician Urgent Consulting Provider: Don Godoy Consult Reason/Comments: afib rvr Do you want consulting provider notified?: Yes 01/30/23 09:40 Consult Physician Urgent Consulting Provider: Raffaele Lam Consult Reason/Comments: dropping platelet count and possible use of IV heparin Do you want consulting provider notified?: Yes Primary care physician: Dalila Dempsey DO Hospital Course: Patient is a 67 -year-old male with history of high blood pressure, atrial fibrillation, diabetes mellitus type 2, obstructive uropathy, and long-standing ventral hernia who presented to the ER from his [place] [facility] due to syncopal episode. In the ER he underwent extensive evaluation. On arrival was vital signs were remarkable for blood pressure 67/33 and a pulse of 60. Laboratory analysis was reviewed including a CBC, coagulation studies, CMP, liver function, lactic acid, and troponin which were remarkable for white blood cell count 15, hemoglobin 8.7, hematocrit 29.9, INR 1.6, carbon dioxide 14, anion gap 19, lactic acid 9.6. Influenza A/B/RSV/COVID-[address] abdomen and pelvis completed which showed small bowel ischemia versus obstruction, ascites, cholelithiasis. In the ER he was given 2 L normal saline. He remained hypotensive and was started on norepinephrine and Zosyn. Arrangements were made for admission to the ICU. He was seen by surgery, he was administered a dose of K Centra and underwent urgent exploratory laparotomy with small bowel resection and jejunostomy. The majority of the small bowel was resected with approximately 1 foot of jejunum that was viable, and duodenum was also viable. 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 Postoperatively he required 4 untis of pRBC. The night after surgery the patient's vasopressor requirements increased and he was subsequently started on phenylephrine and vasopressin. His cortisol was 16 which is not adequate for his state of shock and he was started on cortef. On 01/28 he went into A. fib with RVR necessitating an amiodarone drip. He vaso and phenylephrine were able to be weaned off by the morning of 01/29. He struggled with sinus tachycardia on 01/29 and vasopressors were adjusted. 02/01 Patient was seen and examined. Extubated this morning. CBC shows WBC count of 17.6, Hg 7.9, Plt 80. Coag panel APTT 34.5. ABG pH 7.4, pCO2 37. BMP Cl 114, bicab 21, BUN 25, Cr 0.43, glucose 141, Ca 6.6. Phos 2.5. Mag 2.3. Amiodarone 0.5 mg/min. Antibiotics include Anidulafungin and Zosyn. Currently on TPN. Heparin drip at 21 units/kg/hr. Solucortef at 50 mg IV BID. Levophed discontinued at this time. NS at 125 cc/hr. CXR shows bibasilar opacities. 02/02 Patient was seen and examined. Patient reports uncontrolled pain in his abdomen. Dilaudid increased from 0.5 to 1mg and Toradol added. CBC shows WBC count of 24.1, Hg 8.3, Plt 78. Coag panel APTT 47.9. BMP Cl 112, BUN 21, Cr 0.42, glucose 128, Ca 6.7. Phos 2.6. Mag 2.1. Ionized Ca 4.4. Recieving Ca gluconate 1g IV today. Amiodarone discontinued. Antibiotics include Anidulafungin and Zosyn. Currently on TPN. Heparin drip at 25 units/kg/hr. Solucortef at 50 mg IV BID. Levophed weaned off yesterday. NS at 20 cc/hr. CXR shows persistent bibasilar opacities. 02/03 Patient was seen and examined. He remains tachycardic with HR in the 130s. Amiodarone drip increased to 1. Attempt made to try Cardizem and Metoprolol but discontinued due to low BP. Plans for albumin 25% x 2 today. CBC shows WBC count of 24.3, Hg 9.4, Plt 107. Coag panel APTT 46.4. BMP Cl 111, Cr 0.45, Ca 7. Phos 2.8. Mag 2. 02/04 Patient was seen and examined. HR and BP much improved since yesterday. Continues to be on Amiodarone 1 and Heparin drip. APTT 44.3. BMP shows Cl 114, BUN 26, Cr 0.47, glucose 119, Ca 6.9, T.Bili 8.5, AST 73, ALT 89. Mag 2. Phos 2.9. PICC line placed today. 02/05 Patient was seen and examined. Rate controlled and BP within normal limits. CBC shows WBC count 16.2 and Hg 7.6. APTT 40.2. BMP Cl 111, BUN 23, Cr 0.42, glucose 113, Ca 7. Phos 3.5. Mg 2. CT AP was done due to drop in Hg which showed hyperdense bowel wall cannot exclude intramural hemorrhage and large amount of anasarca, pleural effusion and atelectasis. Surgery note reviewed, plans for repeat swallow evaluation early next week. 02/06 Patient was seen and examined. Respirator status worsened today. Currently on 60L Airvo 91% FiO2. Family in discussion about hospice. CXR shows worsening of bilateral infiltrates and pleural effusion. Lasix 40 mg IV x 1 ordered. CBC shows WBC count 12.4 and Hg 7.6. APTT 42.3. CMP shows Cl 110, BUN 24, Cr 0.44, glucose 116, Ca 7, T. Bili 11.1, ALT 53, Albumin 1.7. Mag 1.8. Phos 3.7. After consultation with hospice, family has elected comfort care. This was discussed with the pumper gager apprentice. Plans to switch patient to [facility] hospice. Pertinent studies include CTAP, KUB, chest x-ray, echocardiogram, EKG Pertinent procedures include exploratory laparotomy with small bowel resection and jejunostomy Vital signs reviewed General: Ill appearing, no distress, appears at stated age Cardiovascular: S1S2 reg, no murmur, tachycardic Lungs: Course bs bilateral, no rhonchi, no rales , + accessory muscle use Abdominal: soft, nontender to palpation, no guarding, no appreciable organomegaly, +ostomy, + midline dressing without soak through Ext: + gross muscle atrophy, no edema b/l lower extremities, no contractures Neuro: no FND Psych: Lethargic Discharge diagnosis: Ischemic colitis s/p small bowel resection with jejunostomy, 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 Patient Condition at Discharge: Critical Plan - Discharge Summary Discharge Rx Participant: No New Discharge Prescriptions: No Action Levothyroxine Sodium [Synthroid] 50 mcg PO DAILY Artificial Tears-Hypromellose [Artificial Tear Drops] 1 drop RIGHT EYE BID@0500,2200 Rivaroxaban [Xarelto] 20 mg PO DAILY@1600 diazePAM 2 mg PO QID@07,11,16,20 Melatonin 3 mg PO HS polyethylene glycoL 3350 [Miralax] 17 gm PO DAILY Tamsulosin [Flomax] 0.4 mg PO DAILY #5 cap Escitalopram [Lexapro] 5 mg PO DAILY Omeprazole 20 mg PO HS Memantine [Namenda] 10 mg PO BID polyethylene glycoL 3350 [Miralax] 17 gm PO DAILY PRN PRN Reason: Constipation Acetaminophen [Tylenol 8 Hour] 650 mg PO Q6H PRN PRN Reason: Pain Metoprolol Tartrate [Lopressor] 12.5 mg PO BID Docusate [Colace] 100 mg PO BID Sennosides [Senokot] 17.2 mg PO DAILY Sodium Chloride [Sanders Diboll] 2 spray EA NOSTRIL Q3H PRN PRN Reason: dry nose Magnesium Hydroxide [Milk of Magnesia] 2,400 mg PO DAILY PRN PRN Reason: Constipation Transderm Scop 1.5mg 1 patch TRANSDERM Q72H Discharge Medication List Levothyroxine Sodium [Synthroid] 50 mcg PO DAILY 07/08/14 [History] Artificial Tears-Hypromellose [Artificial Tear Drops] 1 drop RIGHT EYE BID@0500,2200 02/15/17 [History] Melatonin 3 mg PO HS 10/06/17 [History] Rivaroxaban [Xarelto] 20 mg PO DAILY@1600 10/06/17 [History] diazePAM 2 mg PO QID@07,11,16,20 10/06/17 [History] polyethylene glycoL 3350 [Miralax] 17 gm PO DAILY 11/13/18 [History] Tamsulosin [Flomax] 0.4 mg PO DAILY #5 cap 11/17/18 [Rx] Escitalopram [Lexapro] 5 mg PO DAILY 04/25/19 [History] Memantine [Namenda] 10 mg PO BID 11/28/20 [History] Omeprazole 20 mg PO HS 11/28/20 [History] Acetaminophen [Tylenol 8 Hour] 650 mg PO Q6H PRN 01/26/23 [History] Docusate [Colace] 100 mg PO BID 01/26/23 [History] Magnesium Hydroxide [Milk of Magnesia] 2,400 mg PO DAILY PRN 01/26/23 [History] Metoprolol Tartrate [Lopressor] 12.5 mg PO BID 01/26/23 [History] Sennosides [Senokot] 17.2 mg PO DAILY 01/26/23 [History] Sodium Chloride [Sanders Diboll] 2 spray EA NOSTRIL Q3H PRN 01/26/23 [History] Transderm Scop 1.5mg 1 patch TRANSDERM Q72H 01/26/23 [History] polyethylene glycoL 3350 [Miralax] 17 gm PO DAILY PRN 01/26/23 [History] Follow up Appointment(s)/Referral(s): Dalila Dempsey DO [Primary Care Provider] - 1-2 days Discharge Disposition: DISCH TO [facility]
[2023-02-07] MEDS ORDERED: FAT EMULSION 20% 250 ML in EMPTY BAG 1 BAG IV SCH (16:00)
--- NOTE | 2023-02-08 13:42 | CDI ---
Documentation Clarification Form Date: 02/08/2023 01:09:33 PM From: Blanca Montes Phone: Admit Date: 01/26/2023 08:37:00 AM Patient Name: New Mendoza Visit Number: [id number] Discharge Date: 02/06/2023 05:18:00 PM ATTENTION: The Clinical Documentation Specialists (CDI) and [facility] Coding Staff appreciate your assistance in clarifying documentation. Please respond to the clarification below the line at the bottom and electronically sign. The CDI & [facility] Coding staff will review the response and follow-up if needed. Please note: Queries are made part of the Legal Health Record. If you have any questions, please contact the author of this message via ITS. Dr. Rona Rodriguez Cirrhosis is documented per H&P and Pt is a recoveringalcoholic. Please clarify if there is a relationship between the diagnoses. History/Risk Factors: 67yo M, severe septic shock d/t small bowel ischemia, GIB, AHRF, ICM, hypovolemic, liverand hemorrhagic shock, A fib/flutter, hypophosphatemia,lactic acidosis,ATN, acutebicytopenia,anemia,thrombocytopenia, shock liver, ABLA, Hx alcohol dependency in recovery Clinical Indicators: Thrombocytopeniaalso related to acute liver dysfunction. Treatment: Pt sent to Hospice where he Please clarify the relationship, if any, which is clinically appropriate for this patient: [ ] Cirrhosis is due to alcoholism [ ] Cirrhosis is not due to alcoholism [ ] Other explanation of clinical findings (please specify) [ X ] Unable to determine (no explanation for clinical findings) (Template Last Revised: July 2020) MTDD
--- NOTE | 2023-02-08 13:56 | CDI ---
Documentation Clarification Form Date: 02/08/2023 01:43:00 PM From: Blanca Montes Phone: Admit Date: 01/26/2023 08:37:00 AM Patient Name: New Mendoza Visit Number: [id number] Discharge Date: 02/06/2023 05:18:00 PM ATTENTION: The Clinical Documentation Specialists (CDI) and [facility] Coding Staff appreciate your assistance in clarifying documentation. Please respond to the clarification below the line at the bottom and electronically sign. The CDI & [facility] Coding staff will review the response and follow-up if needed. Please note: Queries are made part of the Legal Health Record. If you have any questions, please contact the author of this message via ITS. Dr. Rona Rodriguez Encephalopathy is documented per H&P Note. Additional clarification regarding the type of encephalopathy is requested. History/Risk Factors: 67yo M, severe septic shock d/t small bowel ischemia, GIB, , ICM, AHRF, hypovolemic, liver and hemorrhagic shock, A fib/Flutter, hypophosphatemia, lactic acidosis, ATN, acute bicytopenia, anemia, thrombocytopenia, shock liver, ABLA, Hx alcohol dependency in recovery, cirrhosis Clinical Indicators: Labs: Available labs showedleukocytosisof 15.0.Microcytic anemia. Lactic acid level IX.6. Urinalysis negative. Treatment: CTdoes confirm that he has abowel obstructionwithlikelyischemic bowel. Patient had been started on IV fluids, vasopressors and IV antibiotics prior to shift change. Case is discussed with Dr. Jose crow for general surgery, Dr. Humphrey for the ICU andDr. Condon will admit. After consultation with hospice, family has electedcomfort care. Please clarify the type of encephalopathy, if known: [ ] Metabolic Encephalopathy [ ] Septic Encephalopathy [ ] Toxic Encephalopathy [ ] Hepatic Encephalopathy [ ] Other, please specify [ ] Unable to determine (Template Last Revised: July 2020) No encephalopathy prior to intubation, awake alert and oriented, was intubated for procedure. KAYY
--- NOTE | 2023-02-11 11:29 | P.PN ---
Subjective Progress Note Date: 02/06/23 Principal diagnosis: Sepsis/ischemic small intestine Patient is a 67-year-old male with a past medical history negative for atrial fibrillation diabetes mellitus hypertension PE seizure disorder and dementia patient was brought into the hospital for evaluation of a syncopal episode , patient did have a CT abdominal pelvis suggestive of small bowel ischemia status post laparotomy patient was noticed to have ischemic small bowel intestine intra-abdominal adhesion requiring small bowel resection and jejunostomy and admission to the ICU. On today's evaluation of that is 02/06/2023, the patient did have a low grade fever of 100.3 this morning, the patient is hemodynamically stable , the patient is breathing comfortably on 5 L nasal cannula oxygen patient is more a wake but in no distress no vomiting or any other changes reported by the nursing staff Patient white count is down to 12.4, creatinine 0.44, repeat blood culture 02/02/2023 so far negative catheter tip cultures pending Objective - Vital Signs Vital signs: Vital Signs Temp 100.3 F H 02/06/23 16:00 Pulse 123 H 02/06/23 16:00 Resp 33 H 02/06/23 16:00 BP 75/55 02/06/23 16:00 Pulse Ox 89 L 02/06/23 16:00 FiO2 90 02/06/23 16:00 Intake & Output 02/06/23 02/06/23 02/07/23 06:59 18:59 06:59 Intake Total 6359.177 1117 Output Total 1165 645 Balance 341.123 380 Weight 92.4 kg Intake: IV 1040 1025 Albumin Human 25% 50 ml 50 50 In Empty Bag 1 bag @ 50 mls/hr IVPB BID [facility] Rx#: [id number] Sodium Acetate 30 meq 900 75 Calcium Gluconate 1.25 gm Potassium Acetate 40 meq Potassium Phosphate 24 mmol In Amino Acid 5%- D15w 1,000 ml @ 75 mls/hr IV .BY DURATION [facility] Rx#: [id number] Sodium Acetate 30 meq 810 Calcium Gluconate 1.25 gm Potassium Acetate 40 meq Potassium Phosphate 24 mmol Magnesium Sulfate gm 0.5 gm In Amino Acid 5%- D15w 1,000 ml @ 90 mls/hr IV .BY DURATION [facility] Rx#: [id number] Sodium Chloride 0.9% 1, 90 90 000 ml @ 20 mls/hr IV . Q24H [facility] Rx#:[id number] Intake, IV Titration 466.123 Amount Amiodarone 450 mg In 194.171 Dextrose 5% in Water 250 ml @ 0.5 MG/MIN 16.667 mls/hr IV .Q15H [facility] Rx#: [id number] Heparin Sod,Pork in 0.45% 171.952 NaCl 25,000 unit In 0.45 % NaCl 1 250ml.bag @ 12 UNITS/KG/HR 7.68 mls/hr IV .Q24H [facility] Rx#: [id number] Piperacillin-Tazobactam 3 100 .375 gm In Sodium Chloride 0.9% 100 ml @ 25 mls/hr IVPB Q8H [facility] Rx#: [id number] Output: Urine 665 645 Stool 500 Other: Voiding Method Indwelling Catheter Indwelling Catheter ABP, PAP, CO, CI - Last Documented Arterial Blood Pressure 112/78 - Exam GENERAL DESCRIPTION: An elderly male lying in bed in no distress RESPIRATORY SYSTEM: Unlabored breathing , decreased breath sounds at bases HEART: S1 S2 regular rate and rhythm , ABDOMEN: Soft , midline incision is intact EXTREMITIES: No edema feet - Labs CBC & Chem 7: 02/06/23 11:55 02/06/23 04:44 Labs: Abnormal Lab Results - Last 24 Hours (Table) 02/05/23 02/06/23 02/06/23 Range/Units 23:10 04:44 04:44 WBC (3.8-10.6) k/uL RBC (4.30-5.90) m/uL Hgb (13.0-17.5) gm/dL Hct (39.0-53.0) % RDW (11.5-15.5) % Neutrophils # (1.3-7.7) k/uL Lymphocytes # (1.0-4.8) k/uL APTT 30.6 H 40.1 H (22.0-30.0) sec Chloride 110 H (98-107) mmol/L BUN 24 H (9-20) mg/dL Creatinine 0.44 L (0.66-1.25) mg/dL Glucose 116 H (74-99) mg/dL POC Glucose (mg/dL) (70-110) mg/dL Calcium 7.0 L (8.4-10.2) mg/dL Total Bilirubin 11.1 H (0.2-1.3) mg/dL ALT 53 H (4-49) U/L Total Protein 4.2 L (6.3-8.2) g/dL Albumin 1.7 L (3.5-5.0) g/dL 02/06/23 02/06/23 02/06/23 Range/Units 06:54 11:55 11:55 WBC 12.4 H (3.8-10.6) k/uL RBC 3.01 L (4.30-5.90) m/uL Hgb 7.6 L (13.0-17.5) gm/dL Hct 24.5 L (39.0-53.0) % RDW 22.6 H (11.5-15.5) % Neutrophils # 11.1 H (1.3-7.7) k/uL Lymphocytes # 0.6 L (1.0-4.8) k/uL APTT 42.3 H (22.0-30.0) sec Chloride (98-107) mmol/L BUN (9-20) mg/dL Creatinine (0.66-1.25) mg/dL Glucose (74-99) mg/dL POC Glucose (mg/dL) 113 H (70-110) mg/dL Calcium (8.4-10.2) mg/dL Total Bilirubin (0.2-1.3) mg/dL ALT (4-49) U/L Total Protein (6.3-8.2) g/dL Albumin (3.5-5.0) g/dL 02/06/23 Range/Units 11:58 WBC (3.8-10.6) k/uL RBC (4.30-5.90) m/uL Hgb (13.0-17.5) gm/dL Hct (39.0-53.0) % RDW (11.5-15.5) % Neutrophils # (1.3-7.7) k/uL Lymphocytes # (1.0-4.8) k/uL APTT (22.0-30.0) sec Chloride (98-107) mmol/L BUN (9-20) mg/dL Creatinine (0.66-1.25) mg/dL Glucose (74-99) mg/dL POC Glucose (mg/dL) 118 H (70-110) mg/dL Calcium (8.4-10.2) mg/dL Total Bilirubin (0.2-1.3) mg/dL ALT (4-49) U/L Total Protein (6.3-8.2) g/dL Albumin (3.5-5.0) g/dL Microbiology - Last 24 Hours (Table) 02/02/23 15:54 Blood Culture - Preliminary Blood 02/04/23 12:45 Catheter Tip Culture - Preliminary Catheter Tip Assessment and Plan (1) Ischemic bowel disease Status: Acute Priority: High Code(s): K55.9 - VASCULAR DISORDER OF INTESTINE, UNSPECIFIED SNOMED Code(s): 90013310 (2) Sepsis Status: Acute Priority: High Code(s): A41.9 - SEPSIS, UNSPECIFIED ORGANISM SNOMED Code(s): 22966611 Plan: 1patient present to hospital with sepsis/septic shock in this patient with hypotension fever elevated white count tachycardia source is abdominal pain in this patient noticed to have small bowel ischemia s/p laparotomy with small bowel resection and jejunostomy, we will need to cover for the enteric gram- negative the likely pathogen for this episode of sepsis/septic shock. 2patient afebrile , however the patient did have persistently elevated white count patient did have CT of abdominal pelvis, postoperative changes large amount of ascites and hyperdense bowel wall transverse colon with a question of intramural hemorrhage, CT has been reviewed by surgery continue with the current treatment 3-patient white count is trending down did have a low-grade fever with a monitor closely, we will continue with Zosyn and Eraxis and continue supportive care Dictation was produced using [email or web address] dictation software. please excuse any grammatical, word or spelling errors. Time with Patient: Less than 30
== END 2023-02-06 17:18 | disposition hospice, inpatient (51) | DRG 853 ==
LOC: EC 04:44 → 2SICU 08:37
PROVIDERS: ADMIT Internal Medicine; ATTEND Internal Medicine
PROC: 06HY33Z Insertion of Infusion Device into Lower Vein, Percutaneous Approach (ICD-10-PCS; 2023-01-26)
PROC: 0DHA0UZ Insertion of Feeding Device into Jejunum, Open Approach (ICD-10-PCS; 2023-01-26)
PROC: 3E043XZ Introduction of Vasopressor into Central Vein, Percutaneous Approach (ICD-10-PCS; 2023-01-26)
PROC: 0D9670Z Drainage of Stomach with Drainage Device, Via Natural or Artificial Opening (ICD-10-PCS; 2023-01-26)
PROC: 30283B1 Transfusion of Nonautologous 4-Factor Prothrombin Complex Concentrate into Vein, Percutaneous Approach (ICD-10-PCS; 2023-01-26)
PROC: 30233N1 Transfusion of Nonautologous Red Blood Cells into Peripheral Vein, Percutaneous Approach (ICD-10-PCS; 2023-01-26)
PROC: 0DT80ZZ Resection of Small Intestine, Open Approach (ICD-10-PCS; principal; 2023-01-26 12:40)
PROC: 5A1955Z Respiratory Ventilation, Greater than 96 Consecutive Hours (ICD-10-PCS; principal; 2023-01-26 12:40)
PROC: 30233J1 Transfusion of Nonautologous Serum Albumin into Peripheral Vein, Percutaneous Approach (ICD-10-PCS; 2023-02-03)
PROC: 02HV33Z Insertion of Infusion Device into Superior Vena Cava, Percutaneous Approach (ICD-10-PCS; 2023-02-04)
PROC: 3E0436Z Introduction of Nutritional Substance into Central Vein, Percutaneous Approach (ICD-10-PCS; 2023-02-04)
DX: A41.9 Sepsis, unspecified organism (principal); J96.01 Acute respiratory failure with hypoxia; K55.019 Acute (reversible) ischemia of small intestine, extent unspecified; K65.1 Peritoneal abscess; R65.21 Severe sepsis with septic shock; K55.029 Acute infarction of small intestine, extent unspecified; N17.0 Acute kidney failure with tubular necrosis; R57.1 Hypovolemic shock; R57.8 Other shock; K72.00 Acute and subacute hepatic failure without coma; K25.4 Chronic or unspecified gastric ulcer with hemorrhage; R64 Cachexia; K56.50 Intestinal adhesions [bands], unspecified as to partial versus complete obstruction; G81.91 Hemiplegia, unspecified affecting right dominant side; I42.8 Other cardiomyopathies; D68.9 Coagulation defect, unspecified; I48.92 Unspecified atrial flutter; I48.19 Other persistent atrial fibrillation; F03.94 Unspecified dementia, unspecified severity, with anxiety; F03.93 Unspecified dementia, unspecified severity, with mood disturbance; B37.89 Other sites of candidiasis; E87.21 Acute metabolic acidosis; J90 Pleural effusion, not elsewhere classified; R18.8 Other ascites; D62 Acute posthemorrhagic anemia; K90.821 Short bowel syndrome with colon in continuity; Z68.1 Body mass index [BMI] 19.9 or less, adult; J98.11 Atelectasis; K74.60 Unspecified cirrhosis of liver; G40.909 Epilepsy, unspecified, not intractable, without status epilepticus; E11.9 Type 2 diabetes mellitus without complications; Z66 Do not resuscitate; Z51.5 Encounter for palliative care; F10.21 Alcohol dependence, in remission; Z20.822 Contact with and (suspected) exposure to COVID-19; L89.156 Pressure-induced deep tissue damage of sacral region; E83.39 Other disorders of phosphorus metabolism; E83.51 Hypocalcemia; D69.59 Other secondary thrombocytopenia; K76.89 Other specified diseases of liver; I10 Essential (primary) hypertension; D50.9 Iron deficiency anemia, unspecified; E03.9 Hypothyroidism, unspecified; K43.9 Ventral hernia without obstruction or gangrene; I25.10 Atherosclerotic heart disease of native coronary artery without angina pectoris; I45.10 Unspecified right bundle-branch block; K80.20 Calculus of gallbladder without cholecystitis without obstruction; N13.9 Obstructive and reflux uropathy, unspecified; D75.89 Other specified diseases of blood and blood-forming organs; M62.50 Muscle wasting and atrophy, not elsewhere classified, unspecified site; F19.91 Other psychoactive substance use, unspecified, in remission; Z79.890 Hormone replacement therapy; Z79.01 Long term (current) use of anticoagulants; Z79.899 Other long term (current) drug therapy; Z86.711 Personal history of pulmonary embolism; Z86.14 Personal history of Methicillin resistant Staphylococcus aureus infection; Z86.19 Personal history of other infectious and parasitic diseases; Z90.3 Acquired absence of stomach [part of]; Z81.8 Family history of other mental and behavioral disorders; Z87.820 Personal history of traumatic brain injury; Z28.310 Unvaccinated for COVID-19; Z87.19 Personal history of other diseases of the digestive system
CPT/HCPCS: 36415; 36573; 71045; 74018; 74176; 74177; 80048; 80053; 81001; 82272; 82330; 82533; 82607; 82746; 82805; 83605; 83735; 83883; 84100; 84132; 84145; 84165; 84478; 84484; 85025; 85027; 85384; 85610; 85730; 86850; 86900; 86901; 86920; 87040; 87070; 87205; 87636; 88309; 93005; 93306; 94003; 96361; 96365; 96366; 96367; 96368; 96375; 99291

== ENCOUNTER 2023-02-06 17:15 | Inpatient (IN) | payer MEDICAID ==
[2023-02-06] MEDS ORDERED: LORazepam 2 MG/ML INJ IV PRN (17:28)
[2023-02-06] MEDS ORDERED: ONDANSETRON 4 MG/2 ML VIAL IVP PRN (17:28)
[2023-02-06] MEDS ORDERED: ACETAMINOPHEN SUPPOSITORY 650 MG SUPP RECTAL PRN (17:28)
[2023-02-06] MEDS ORDERED: MORPHINE SULFATE (100 MG/2 ML) 100 MG in SODIUM CHLORIDE 0.9% 100 ML IV SCH (17:30)
[2023-02-06] MEDS ORDERED: SCOPOLAMINE 1 MG/72 HR PATCH TRANSDERM SCH (17:30)
[2023-02-06] MEDS ORDERED: SODIUM CHLORIDE 0.9% 1,000 ML IV SCH (17:30)
[2023-02-06] MEDS: MORPHINE SULFATE 2 MG/ML SYRINGE IV PRN ×3 (17:50→19:49)
[2023-02-06 20:48] VITALS: BP 75/53; RESP 27; TEMP 98.5
--- NOTE | 2023-02-07 08:42 | P.HPIM ---
History of Present Illness H&P Date: 02/07/23 This will serve as the H&P along with discharge summary. Patient is a 67 -year-old male with history of high blood pressure, atrial fibrillation, diabetes mellitus type 2, obstructive uropathy, and long-standing ventral hernia who presented to the ER from his [facility] due to syncopal episode. In the ER he underwent extensive evaluation. On arrival was vital signs were remarkable for blood pressure 67/33 and a pulse of 60. Laboratory analysis was reviewed including a CBC, coagulation studies, CMP, liver function, lactic acid, and troponin which were remarkable for white blood cell count 15, hemoglobin 8.7, hematocrit 29.9, INR 1.6, carbon dioxide 14, anion gap 19, lactic acid 9.6. Influenza A/B/RSV/COVID-[address] abdomen and pelvis completed which showed small bowel ischemia versus obstruction, ascites, cholelithiasis. In the ER he was given 2 L normal saline. He remained hypotensive and was started on norepinephrine and Zosyn. Arrangements were made for admission to the ICU. He was seen by surgery, he was administered a dose of K Centra and underwent urgent exploratory laparotomy with small bowel resection and jejunostomy. The majority of the small bowel was resected with approximately 1 foot of jejunum that was viable, and duodenum was also viable. 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 Postoperatively he required 4 untis of pRBC. The night after surgery the patient's vasopressor requirements increased and he was subsequently started on phenylephrine and vasopressin. His cortisol was 16 which is not adequate for his state of shock and he was started on cortef. On 01/28 he went into A. fib with RVR necessitating an amiodarone drip. He vaso and phenylephrine were able to be weaned off by the morning of 01/29. He struggled with sinus tachycardia on 01/29 and vasopressors were adjusted. 02/01 Patient was seen and examined. Extubated this morning. CBC shows WBC count of 17.6, Hg 7.9, Plt 80. Coag panel APTT 34.5. ABG pH 7.4, pCO2 37. BMP Cl 114, bicab 21, BUN 25, Cr 0.43, glucose 141, Ca 6.6. Phos 2.5. Mag 2.3. Amiodarone 0.5 mg/min. Antibiotics include Anidulafungin and Zosyn. Currently on TPN. Heparin drip at 21 units/kg/hr. Solucortef at 50 mg IV BID. Levophed dis continued at this time. NS at 125 cc/hr. CXR shows bibasilar opacities. 02/02 Patient was seen and examined. Patient reports uncontrolled pain in his abdomen. Dilaudid increased from 0.5 to 1mg and Toradol added. CBC shows WBC count of 24.1, Hg 8.3, Plt 78. Coag panel APTT 47.9. BMP Cl 112, BUN 21, Cr 0.42, glucose 128, Ca 6.7. Phos 2.6. Mag 2.1. Ionized Ca 4.4. Recieving Ca gluconate 1g IV today. Amiodarone discontinued. Antibiotics include Anidulafungin and Zosyn. Currently on TPN. Heparin drip at 25 units/kg/hr. Solucortef at 50 mg IV BID. Levophed weaned off yesterday. NS at 20 cc/hr. CXR shows persistent bibasilar opacities. 02/03 Patient was seen and examined. He remains tachycardic with HR in the 130s. Amiodarone drip increased to 1. Attempt made to try Cardizem and Metoprolol but discontinued due to low BP. Plans for albumin 25% x 2 today. CBC shows WBC count of 24.3, Hg 9.4, Plt 107. Coag panel APTT 46.4. BMP Cl 111, Cr 0.45, Ca 7. Phos 2.8. Mag 2. 02/04 Patient was seen and examined. HR and BP much improved since yesterday. Continues to be on Amiodarone 1 and Heparin drip. APTT 44.3. BMP shows Cl 114, BUN 26, Cr 0.47, glucose 119, Ca 6.9, T.Bili 8.5, AST 73, ALT 89. Mag 2. Phos 2.9. PICC line placed today. 02/05 Patient was seen and examined. Rate controlled and BP within normal limits. CBC shows WBC count 16.2 and Hg 7.6. APTT 40.2. BMP Cl 111, BUN 23, Cr 0.42, glu cose 113, Ca 7. Phos 3.5. Mg 2. CT AP was done due to drop in Hg which showed hyperdense bowel wall cannot exclude intramural hemorrhage and large amount of anasarca, pleural effusion and atelectasis. Surgery note reviewed, plans for repeat swallow evaluation early next week. 02/06 Patient was seen and examined. Respirator status worsened today. Currently on 60L Airvo 91% FiO2. Family in discussion about hospice. CXR shows worsening of bilateral infiltrates and pleural effusion. Lasix 40 mg IV x 1 ordered. CBC shows WBC count 12.4 and Hg 7.6. APTT 42.3. CMP shows Cl 110, BUN 24, Cr 0.44, glucose 116, Ca 7, T. Bili 11.1, ALT 53, Albumin 1.7. Mag 1.8. Phos 3.7. After consultation with hospice, family has elected comfort care. This was discussed with the african history professor. Plans to switch patient to [facility] hospice. Patient was placed on comfort measures and started on morphine drip. He peacefully at 2338 on 02/06. Vital signs reviewed General: Ill appearing, no distress, appears at stated age Cardiovascular: S1S2 reg, no murmur, tachycardic Lungs: Course bs bilateral, no rhonchi, no rales , + accessory muscle use Abdominal: soft, nontender to palpation, no guarding, no appreciable or ganomegaly, +ostomy, + midline dressing without soak through Ext: + gross muscle atrophy, no edema b/l lower extremities, no contractures Neuro: no FND Psych: Lethargic Discharge diagnosis: Ischemic colitis s/p small bowel resection with jejunostomy, 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 , HX OF BRAIN DAMAGE R/T DRUG ABUSE, abdominal hernia,rt hemiparesis History of Any Multi-Drug Resistant Organisms: ESBL, MRSA Date of last positivie culture/infection: 04/02/17 MDRO Source:: sputum esbl, LT FOOT WOUND Past Surgical History: Adenoidectomy, Bowel Resection, Hernia Repair, Tonsillectomy Additional Past Surgical History / Comment(s): wound debridement to L FOOT, LYSIS OF ADHESIONS.PEG INSERTION & Removal, EGD, INCISIONAL HERNIA 11/2018 AT [facility]. SBO WITH PARTIAL BOWEL RESECTION (2016) Past Anesthesia/Blood Transfusion Reactions: No Reported Reaction Additional Past Anesthesia/Blood Transfusion Reaction / Comment(s): BROTHER- CINDY MADERA STATES NO PROBLEMS WITH ANESTHESIA AND NO FAMILY HX OF PROBLEMS WITH ANESTHESIA. Past Psychological History: Anxiety, Depression Additional Psychological History / Comment(s): Pt resides at [facility] since 2006. Smoking Status: Never smoker Past Alcohol Use History: None Reported Additional Past Alcohol Use History / Comment(s): Pt is a recovering alcoholic. Past Drug Use History: None Reported Additional Drug Use History / Comment(s): HX OF BRAIN DAMAGE R/T DRUG ABUSE - Past Family History Father Family Medical History: Dementia Additional Family Medical History / Comment(s): Father of alzheimer dementia at the age of 87yrs. Mother Family Medical History: Cancer Additional Family Medical History / Comment(s): Mother had breast cancer and had a cancerous tumor removed from outside her bladder. She at the age of 87yrs from lung cancer. Medications and Allergies Home Medications Medication Instructions Recorded Confirmed Type Levothyroxine Sodium [Synthroid] 50 mcg PO DAILY 07/08/14 02/06/23 History Artificial Tears-Hypromellose 1 drop RIGHT EYE BID@0500,2200 02/15/17 02/06/23 History [Artificial Tear Drops] Melatonin 3 mg PO HS 10/06/17 02/06/23 History Rivaroxaban [Xarelto] 20 mg PO DAILY@1600 10/06/17 02/06/23 History diazePAM 2 mg PO QID@07,11,16,20 10/06/17 02/06/23 History polyethylene glycoL 3350 [Miralax] 17 gm PO DAILY 11/13/18 02/06/23 History Tamsulosin [Flomax] 0.4 mg PO DAILY #5 cap 11/17/18 02/06/23 Rx Escitalopram [Lexapro] 5 mg PO DAILY 04/25/19 02/06/23 History Memantine [Namenda] 10 mg PO BID 11/28/20 02/06/23 History Omeprazole 20 mg PO HS 11/28/20 02/06/23 History Acetaminophen [Tylenol 8 Hour] 650 mg PO Q6H PRN 01/26/23 02/06/23 History Docusate [Colace] 100 mg PO BID 01/26/23 02/06/23 History Magnesium Hydroxide [Milk of 2,400 mg PO DAILY PRN 01/26/23 02/06/23 History Magnesia] Metoprolol Tartrate [Lopressor] 12.5 mg PO BID 01/26/23 02/06/23 History Sennosides [Senokot] 17.2 mg PO DAILY 01/26/23 02/06/23 History Sodium Chloride [[place]] 2 spray EA NOSTRIL Q3H PRN 01/26/23 02/06/23 History Transderm Scop 1.5mg 1 patch TRANSDERM Q72H 01/26/23 02/06/23 History polyethylene glycoL 3350 [Miralax] 17 gm PO DAILY PRN 01/26/23 02/06/23 History Allergies Allergy/AdvReac Type Severity Reaction Status Date / Time No Known Allergies Allergy Verified 02/06/23 18:18 Physical Exam Vitals: Vital Signs Temp Resp BP Pulse Ox FiO2 02/06/23 20:16 90 02/06/23 20:00 98.5 F 27 H 75/53 94 L 90 Intake and Output 02/06/23 02/07/23 02/07/23 22:59 06:59 14:59 Intake Total 33.443 34.68 Output Total 250 Balance -216.557 34.68 Intake: IV 10 Sodium Chloride 0.9% 1, 10 000 ml @ 20 mls/hr IV . Q24H [facility] Rx#:[id number] Intake, IV Titration 23.443 34.68 Amount Morphine Sulfate (100 mg/ 23.443 34.68 2 ml) 100 mg In Sodium Chloride 0.9% 100 ml @ 1 MG/HR 1.02 mls/hr IV . Q24H [facility] Rx#:[id number] Output: Urine 250 Other: Voiding Method Indwelling Catheter Weight 90.8 kg
== END 2023-02-06 23:38 | disposition expired | DRG 951 ==
LOC: 2SICU 17:19
PROVIDERS: ADMIT Family Medicine; ATTEND Family Medicine
DX: Z51.5 Encounter for palliative care (principal); A41.9 Sepsis, unspecified organism; J96.01 Acute respiratory failure with hypoxia; K72.00 Acute and subacute hepatic failure without coma; R65.21 Severe sepsis with septic shock; D62 Acute posthemorrhagic anemia; D68.9 Coagulation defect, unspecified; E87.20 Acidosis, unspecified; I42.9 Cardiomyopathy, unspecified; K55.9 Vascular disorder of intestine, unspecified; G93.40 Encephalopathy, unspecified; N13.8 Other obstructive and reflux uropathy; K91.2 Postsurgical malabsorption, not elsewhere classified; D69.6 Thrombocytopenia, unspecified; E83.39 Other disorders of phosphorus metabolism; F10.21 Alcohol dependence, in remission; F32.A Depression, unspecified; G40.909 Epilepsy, unspecified, not intractable, without status epilepticus; I10 Essential (primary) hypertension; I48.91 Unspecified atrial fibrillation; K57.90 Diverticulosis of intestine, part unspecified, without perforation or abscess without bleeding; E83.51 Hypocalcemia; B19.20 Unspecified viral hepatitis C without hepatic coma; K59.00 Constipation, unspecified; Z79.01 Long term (current) use of anticoagulants; Z79.890 Hormone replacement therapy; Z79.899 Other long term (current) drug therapy; Z86.711 Personal history of pulmonary embolism; Z87.11 Personal history of peptic ulcer disease; Z87.19 Personal history of other diseases of the digestive system; R00.0 Tachycardia, unspecified; K80.20 Calculus of gallbladder without cholecystitis without obstruction; K25.9 Gastric ulcer, unspecified as acute or chronic, without hemorrhage or perforation; K74.60 Unspecified cirrhosis of liver; I25.10 Atherosclerotic heart disease of native coronary artery without angina pectoris; E11.9 Type 2 diabetes mellitus without complications